=== PATIENT | male | born 1950 | race African-American/Black ===

== ENCOUNTER → 2017-12-19 14:18 | Outpatient (POV) | payer MEDICARE, SELFPAY ==
[2017-12-19 14:36] VITALS: BP 177/86; PULSE 65; RESP 18; O2SAT 98
--- NOTE | 2017-12-19 16:31 | HMH.PMCON ---
Assessment and Plan (1) Postlaminectomy syndrome Current visit: Yes Status: Chronic Category: Medical Code(s): M96.1 - Postlaminectomy syndrome, not elsewhere classified (2) Lumbar radiculopathy Current visit: Yes Status: Chronic Category: Medical Code(s): M54.16 - Radiculopathy, lumbar region - Assessment and plan all Dx Assessment and Plan for all problems:: We will schedule lumbar MRI for the patient. We will also try him on Lyrica 75 mg 1 p.o. twice daily and see if this is helpful for him. If this helps him we can call in the Lyrica prescription. I will follow-up with the patient after his MRI and we will determine our next plan of care. This note was dictated using voice recognition software and may contain errors or omissions HPI - Data of Consult Consult date: 12/19/17 Requesting Physician: Shayla Hdez APRN Primary Care Provider: Henrry Vegas MD Family Provider: Henrry Vegas MD - Consult Narrative Reason for consult: Leg pain, foot pain History of present illness: Mr. Phillips is a 67 year old male who presents today for consultation in regards to his bilateral leg and foot pain. Patient has had back surgery several years ago. Patient states that over the last 6 months he has lost feeling in both legs. Patient states it is worse in his feet. He states that he is numb and tingling at all times. Patient states Tylenol helps a little bit. Patient states movement makes it worse. Patient has tried gabapentin with no relief. Patient is not diabetic. Patient is currently on anticoagulation therapy. Patient does not have any recent MRI imaging. He rates his pain a 9 out of 10 today. CC: Shayla Hdez APRN [facility] History I have reviewed the patient's past medical history: Yes Medical History: Reports:: Hyperlipidemia, Hypertension, Palpitations Denies:: Diabetes Mellitus Type 1, Diabetes Mellitus Type 2 Other Medical History: Reports: Arthritis - *Social History Smoking Status: Never smoker Alcohol Intake: never Occupational Status: other Housing: house Household Members: spouse - Psychiatric History Expresses thoughts of harming self/others: None Suicide Plan Description: No Plan *Family Hx:: Unable to obtain Review of Systems - Review of Systems ROS General: no recent weight change, no fever, no sleep disturbances Respiratory: no cough, no shortness of air, no recurring pulmonary infections Cardiovascular/Peripheral Vascular: No chest pain, No palpitations, no edema, no shortness of breath. Gastrointestinal: no incontinence, normal bowel movements reported Genitourinary: no incontinence Musculoskeletal: Leg pain, bilateral foot pain Psychiatric: normal mood/ affect Neurological: [denies weakness in extremities], [denies balance issues] Meds Allergies Allergy/AdvReac Type Severity Reaction Status Date / Time No Known Drug Allergies Allergy Verified 12/19/17 14:41 Objective Vital signs: Pulse Resp BP Pulse Ox 65 18 177/86 98 12/19/17 14:36 12/19/17 14:36 12/19/17 14:36 12/19/17 14:36 Narrative: Physical Exam General: Alert and oriented x3, no acute distress, pleasant and cooperative, on room air Lungs: Resps E/U, Symmetrical chest expansion, Eyes: PERRL Musculoskeletal: Flexion and extension of lumbar spine somewhat guarded secondary to pain, deep tendon reflexes normal, strength in upper and lower extremities [5/5], [abnormal gait noted] Neurological: speech clear, culture room worker equal, no gross sensory deficits Opioid Risk Tool - Opioid Risk Tool-Male Family hx alcohol abuse: N Family hx illegal drugs: N Family hx rx drug abuse: N Personal hx alcohol abuse: N Personal hx illegal drugs: N Personal hx rx drug abuse: N Age: 45+ Hx of sexual abuse: N Mental health issues-ADD,OCD,Bipolar, etc: N Hx of depression: N Male Risk Score: 0
--- NOTE | 2017-12-19 16:34 | P.CONS_ITS ---
Assessment and Plan (1) Postlaminectomy syndrome Current visit: Yes Status: Chronic Category: Medical Code(s): M96.1 - Postlaminectomy syndrome, not elsewhere classified (2) Lumbar radiculopathy Current visit: Yes Status: Chronic Category: Medical Code(s): M54.16 - Radiculopathy, lumbar region - Assessment and plan all Dx Assessment and Plan for all problems:: We will schedule lumbar MRI for the patient. We will also try him on Lyrica 75 mg 1 p.o. twice daily and see if this is helpful for him. If this helps him we can call in the Lyrica prescription. I will follow-up with the patient after his MRI and we will determine our next plan of care. This note was dictated using voice recognition software and may contain errors or omissions HPI - Data of Consult Consult date: 12/19/17 Requesting Physician: Shayla Hdez APRN Primary Care Provider: Henrry Vegas MD Family Provider: Henrry Vegas MD - Consult Narrative Reason for consult: Leg pain, foot pain History of present illness: Mr. Phillips is a 67 year old male who presents today for consultation in regards to his bilateral leg and foot pain. Patient has had back surgery several years ago. Patient states that over the last 6 months he has lost feeling in both legs. Patient states it is worse in his feet. He states that he is numb and tingling at all times. Patient states Tylenol helps a little bit. Patient states movement makes it worse. Patient has tried gabapentin with no relief. P atsabrina is not diabetic. Patient is currently on anticoagulation therapy. Patient does not have any recent MRI imaging. He rates his pain a 9 out of 10 today. CC: Shayla Hdez APRN [facility] History I have reviewed the patient's past medical history: Yes Medical History: Reports:: Hyperlipidemia, Hypertension, Palpitations Denies:: Diabetes Mellitus Type 1, Diabetes Mellitus Type 2 Other Medical History: Reports: Arthritis - *Social History Smoking Status: Never smoker Alcohol Intake: never Occupational Status: other Housing: house Household Members: spouse - Psychiatric History Expresses thoughts of harming self/others: None Suicide Plan Description: No Plan *Family Hx:: Unable to obtain Review of Systems - Review of Systems ROS General: no recent weight change, no fever, no sleep disturbances Respiratory: no cough, no shortness of air, no recurring pulmonary infections Cardiovascular/Peripheral Vascular: No chest pain, No palpitations, no edema, no shortness of breath. Gastrointestinal: no incontinence, normal bowel movements reported Genitourinary: no incontinence Musculoskeletal: Leg pain, bilateral foot pain Psychiatric: normal mood/ affect Neurological: [denies weakness in extremities], [denies balance issues] Meds Allergies Allergy/AdvReac Type Severity Reaction Status Date / Time No Known Drug Allergies Allergy Verified 12/19/17 14:41 Objective Vital signs: Pulse Resp BP Pulse Ox 65 18 177/86 98 12/19/17 14:36 12/19/17 14:36 12/19/17 14:36 12/19/17 14:36 Narrative: Physical Exam General: Alert and oriented x3, no acute distress, pleasant and cooperative, on room air Lungs: Resps E/U, Symmetrical chest expansion, Eyes: PERRL Musculoskeletal: Flexion and extension of lumbar spine some
== END ==
PROVIDERS: Family Provider Internal Medicine Adolescent Medicine; PCP Internal Medicine Adolescent Medicine; Visit Provider Clinical Nurse Specialist Family Health
DX: M96.1 Postlaminectomy syndrome, not elsewhere classified (principal); M54.16 Radiculopathy, lumbar region
CPT/HCPCS: 99202

== ENCOUNTER → 2017-12-26 12:40 | Outpatient (CLI) | payer MEDICARE, SELFPAY ==
--- NOTE | 2017-12-26 12:44 | MR_ITS ---
MR lumbar spine wo con, MR 3-d myelogram/MRCP HISTORY: Back pain, bilateral leg weakness. 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 3-D MIP and myelographic images are also rendered and reviewed FINDINGS: There is normal alignment. The spinal cord ends at the L2-L3 level. T12-L1: Mild degenerative disc disease with mild facet and ligamentum flavum hypertrophy. L1-L2: Degenerative disc disease with type I endplate changes with bulging disc. There is concentric bulging disc with disc osteophyte complex causing some mild impingement upon the anterior aspect of the cord slightly eccentric toward the right with moderate to severe right foraminal narrowing and moderate left foraminal narrowing. Facet and ligamentum flavum hypertrophy is present at this level as well. These findings are somewhat worse then when compared to the previous study. The type I endplate changes have developed since the previous exam L2-L3: Degenerative disc disease with Concentric bulging disc with facet and ligamentum flavum hypertrophy with moderate to severe right-sided foraminal narrowing and moderate left foraminal narrowing. L3-L4: Degenerative disc disease with concentric bulging disc along with facet and ligamentum flavum hypertrophy with severe bilateral foraminal narrowing along with transverse narrowing of the canal. This is slightly worse than when compared to the previous exam.. 405: Prior posterior fusion with interpedicular screws at L4 and L5 with considerable artifact. Normal alignment. L5-S1: Concentric bulging disc with facet and ligamentum flavum hypertrophy with moderate to severe bilateral foraminal narrowing. This is somewhat worse than when compared to the previous exam. No extruded herniated disc evident. Bilateral renal cysts are noted. IMPRESSION: 1. Abnormal MRI of the lumbar spine with multilevel lumbar spondylosis with degenerative disc disease, bulging disc, and facet ligamentum hypertrophy and endplate osteophytes with lateral recess and foraminal narrowing. Please see above for detailed description at each level 2. Prior fusion at L4-L5 with interpedicular screws in place 3. No extruded herniated disc
== END ==
PROVIDERS: Family Provider Internal Medicine Adolescent Medicine; PCP Internal Medicine Adolescent Medicine; Visit Provider Clinical Nurse Specialist Family Health
DX: M54.5 Low back pain (principal)
CPT/HCPCS: 72148; 76376

== ENCOUNTER → 2018-01-02 15:00 | Outpatient (POV) | payer MEDICARE, SELFPAY ==
[2018-01-02 15:36] VITALS: BP 140/77; PULSE 68; RESP 18; O2SAT 98; BMI 38.9
--- NOTE | 2018-01-02 15:43 | HMH.PAINSOAP ---
[facility] Pain Management SOAP Note Subjective:: She is a pleasant 67-year-old -[place] male who presents today for follow-up after his recent MRI. Patient has quite a lot of degeneration along with disc bulge. Patient has a lot of low back pain and radiation into his bilateral legs. We tried Lyrica however it was not helpful for him. Patient is currently on Eliquis. Patient and I discussed epidural injections. We also briefly discussed neuro stimulation. Patient's tried and failed physical therapy. Patient is trying to stay active at home and continuing a home stretching program. He rates his pain a 6 out of 10 today. ROS General: no recent weight change, no fever, no sleep disturbances Respiratory: no cough, no shortness of air, no recurring pulmonary infections Cardiovascular/Peripheral Vascular: No chest pain, No palpitations, no edema, no shortness of breath. Gastrointestinal: no incontinence, normal bowel movements reported Genitourinary: no incontinence Musculoskeletal: Back pain, leg pain Psychiatric: normal mood/ affect, Neurological: [denies weakness in extremities], [denies balance issues] Objective:: Physical Exam General: Alert and oriented x3, no acute distress, pleasant and cooperative, [on room air] Lungs: Resps E/U, Symmetrical chest expansion, Eyes: PERRL Musculoskeletal: Flexion and extension of lumbar spine somewhat guarded secondary to pain, deep tendon reflexes normal, strength in upper and lower extremities [5/5], [abnormal gait noted] Neurological: speech clear, gauge maker apprentice equal, no gross sensory deficits Assessment:: Degenerative disc disease of lumbar spine with lumbar radiculopathy, postlaminectomy syndrome Plan:: We will schedule an L4-L5 lumbar epidural steroid injection for the patient. We will find out if he can come off of his Eliquis. I will follow-up with the patient after his injection. This note was dictated using voice recognition software and may contain errors or omissions
--- NOTE | 2018-01-02 15:46 | P.CONS_ITS ---
[facility] Pain Management SOAP Note Subjective:: She is a pleasant 67-year-old -[place] male who presents today for follow-up after his recent MRI. Patient has quite a lot of degeneration along with disc bulge. Patient has a lot of low back pain and radiation into his bilateral legs. We tried Lyrica however it was not helpful for him. Patient is currently on Eliquis. Patient and I discussed epidural injections. We also briefly discussed neuro stimulation. Patient's tried and failed physical therapy. Patient is trying to stay active at home and continuing a home stretching program. He rates his pain a 6 out of 10 today. ROS General: no recent weight change, no fever, no sleep disturbances Respiratory: no cough, no shortness of air, no recurring pulmonary infections Cardiovascular/Peripheral Vascular: No chest pain, No palpitations, no edema, no shortness of breath. Gastrointestinal: no incontinence, normal bowel movements reported Genitourinary: no incontinence Musculoskeletal: Back pain, leg pain Psychiatric: normal mood/ affect, Neurological: [denies weakness in extremities], [denies balance issues] Objective:: Physical Exam General: Alert and oriented x3, no acute distress, pleasant and cooperative, [on room air] Lungs: Resps E/U, Symmetrical chest expansion, Eyes: PERRL Musculoskeletal: Flexion and extension of lumbar spine somewhat guarded secondary to pain, deep tendon reflexes normal, strength in upper and lower extremities [5/5], [abnormal gait noted] Neurological: speech clear, tab builder equal, no gross sensory deficits Assessment:: Degenerative disc disease of lumbar spine with lumbar radiculopathy, postlaminectomy syndrome Plan:: We will schedule an L4-L5 lumbar epidural steroid injection for the patient. We will find out if he can come off of his Eliquis. I will follow-up with the patient after his injection. This note was dictated using voice recognition software and may contain errors or omissions
== END ==
PROVIDERS: Family Provider Internal Medicine Adolescent Medicine; PCP Internal Medicine Adolescent Medicine; Visit Provider Clinical Nurse Specialist Family Health
DX: M51.16 Intervertebral disc disorders with radiculopathy, lumbar region (principal); M96.1 Postlaminectomy syndrome, not elsewhere classified
CPT/HCPCS: 99213

== ENCOUNTER → 2018-02-06 12:53 | Outpatient (POV) | payer MEDICARE, SELFPAY ==
[2018-02-06 13:06] VITALS: BP 144/66; PULSE 55; RESP 18; O2SAT 98; BMI 38.0
--- NOTE | 2018-02-06 13:27 | HMH.PAINSOAP ---
[facility] Pain Management SOAP Note Subjective:: Patient is a pleasant 68-year-old -[place] male who presents today for follow-up. Patient is continuing to have quite a lot of leg pain and radiation into his bilateral legs. Patient is tried Lyrica however it was not helpful. 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 His pain today a 6 out of 10. Patient states that it is constant. Patient is continuing his home stretching program. Patient is tried and failed anti-inflammatory therapy for several weeks. ROS General: no recent weight change, no fever, no sleep disturbances Respiratory: no cough, no shortness of air, no recurring pulmonary infections Cardiovascular/Peripheral Vascular: No chest pain, No palpitations, no edema, no shortness of breath. Gastrointestinal: no incontinence, normal bowel movements reported Genitourinary: no incontinence Musculoskeletal: Back pain, leg pain Psychiatric: normal mood/ affect Neurological: [denies weakness in extremities], [denies balance issues] Objective:: Physical Exam General: Alert and oriented x3, no acute distress, pleasant and cooperative, [on room air] Lungs: Resps E/U, Symmetrical chest expansion, Eyes: PERRL Musculoskeletal: Flexion and extension of lumbar spine somewhat guarded secondary to pain, deep tendon reflexes normal, strength in upper and lower extremities [5/5], antalgic gait noted, positive straight leg raise test bilaterally at 30 degrees Neurological: speech clear, archeologist classical equal, no gross sensory deficits Assessment:: Degenerative disc disease lumbar spine with lumbar radiculopathy, postlaminectomy syndrome Plan:: We will schedule an L4-L5 lumbar epidural steroid injection for the patient. I will follow-up with the patient after his injection. This note was dictated using voice recognition software and may contain errors or omissions
--- NOTE | 2018-02-06 13:30 | P.CONS_ITS ---
[facility] Pain Management SOAP Note Subjective:: Patient is a pleasant 68-year-old -[place] male who presents today for follow-up. Patient is continuing to have quite a lot of leg pain and radiation into his bilateral legs. Patient is tried Lyrica however it was not helpful. 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 His pain today a 6 out of 10. Patient states that it is constant. Patient is continuing his home stretching program. Patient is tried and failed anti- inflammatory therapy for several weeks. ROS General: no recent weight change, no fever, no sleep disturbances Respiratory: no cough, no shortness of air, no recurring pulmonary infections Cardiovascular/Peripheral Vascular: No chest pain, No palpitations, no edema, no shortness of breath. Gastrointestinal: no incontinence, normal bowel movements reported Genitourinary: no incontinence Musculoskeletal: Back pain, leg pain Psychiatric: normal mood/ affect Neurological: [denies weakness in extremities], [denies balance issues] Objective:: Physical Exam General: Alert and oriented x3, no acute distress, pleasant and cooperative, [on room air] Lungs: Resps E/U, Symmetrical chest expansion, Eyes: PERRL Musculoskeletal: Flexion and extension of lumbar spine somewhat guarded secondary to pain, deep tendon reflexes normal, strength in upper and lower extremities [5/5], antalgic gait noted, positive straight leg raise test bilaterally at 30 degrees Neurological: speech clear, cager operator equal, no gross sensory deficits Assessment:: Degenerative disc disease lumbar spine with lumbar radiculopathy, postlaminectomy syndrome Plan:: We will schedule an L4-L5 lumbar epidural steroid injection for the patient. I will follow-up with the patient after his injection. This note was dictated using voice recognition software and may contain errors or omissions
== END ==
PROVIDERS: PCP Internal Medicine Adolescent Medicine; Visit Provider Clinical Nurse Specialist Family Health
DX: M51.16 Intervertebral disc disorders with radiculopathy, lumbar region (principal); M96.1 Postlaminectomy syndrome, not elsewhere classified
CPT/HCPCS: 99213

== ENCOUNTER → 2018-05-16 09:29 | Outpatient (POV) | payer MEDICARE, SELFPAY | PROVIDERS: Visit Provider Otolaryngology | DX: Z00.00 Encounter for general adult medical examination without abnormal findings (principal) ==

== ENCOUNTER → 2018-08-11 07:45 | Outpatient (CLI) | payer MEDICARE, SELFPAY ==
--- NOTE | 2018-08-11 07:48 | MR_ITS ---
MR head/brain wo con HISTORY: Bilateral feet numbness, intermittent blurred vision ITS.REASON: IDIOPATHIC PERIPHERAL NEUROPATHY ORDERING PHYSICIAN: Henrry Vegas MD PATIENT AGE: 68 years Comparison: None TECHNIQUE: Standard multiplanar multiecho sequences are performed without contrast. FINDINGS: No midline shift, mass effect, intracranial hemorrhage, or hydrocephalus. No evidence of acute infarction. There is generalized atrophy with moderate periventricular and subcortical T2 white matter hyperintensity consistent with ischemic gliotic change from microvascular disease. There is mild ventriculomegaly likely related to underlying volume loss. The cerebellopontine angles, cerebellum, brainstem are unremarkable. There is diffuse increase in T2 signal with loss of flow void artifact within the right vertebral artery. This does raise the suspicion of vertebral occlusion on the right. This could be flow related as well. CT angiogram may be of further value. There is no evidence of acute infarction. Flow void artifact is present in the left vertebral artery and basilar artery as i. The pituitary, optic chiasm, corpus callosum, and craniocervical junction have an unremarkable appearance. No sinus air-fluid level or mastoid effusion. IMPRESSION: 1. Atrophy with diffuse periventricular ischemic gliotic change 2. Possible thrombosis of the right vertebral artery. CT angiogram may further evaluate.. This could also be related to slow flow. 3. No acute infarction apparent
== END ==
PROVIDERS: PCP Internal Medicine Adolescent Medicine; Visit Provider Internal Medicine Adolescent Medicine
DX: R32 Unspecified urinary incontinence (principal); G60.9 Hereditary and idiopathic neuropathy, unspecified
CPT/HCPCS: 70551

== ENCOUNTER 2019-06-12 15:55 | Observation (INO) ==
--- NOTE | 2019-06-12 16:31 | Emergency Department Note ---
ED Disposition Clinical Impression: Weakness, Renal mass Disposition: Admitted as Observation Condition on Discharge: Fair Referrals: Henrry Vegas MD [Primary Care Provider] - - Critical Care Critical Care Time: No Attestation: On , the high probability of a clinically significant, sudden or life t hreatening deterioration of the following system(s) required my full and direct attention, intervention and personal management. The time I documented below is in addition to time spent performing reported procedures but includes the following listed in this critical care notation. Medical Decision Making - Carlos Inquiry Pt receiving controlled substance: No Vital Signs: 06/12/19 15:56 Temperature 100.5 F H Temperature Source Oral Pulse Rate [Left Radial] 76 Respiratory Rate 20 Blood Pressure [Left Arm] 150/114 H Blood Pressure Mean [Left Arm] 126 Blood Pressure Source [Left Arm] Automatic Cuff Blood Pressure Position [Left Arm] Sitting 02 Sat by Pulse Oximetry 96 Oxygen Delivery Method Room Air - Lab Data Lab Results 06/12/19 14:15: Urine Color Yellow, Urine Appearance Clear, Urine pH 5.0, Ur Specific [place] 1.015, Urine Protein Negative, Urine Glucose (UA) Negative, Urine Ketones Negative, Urine Blood Negative, Urine Nitrate Negative, Urine Bilirubin Negative, Urine Urobilinogen 0.2, Ur Leukocyte Esterase Negative, Urine RBC None, Urine WBC None, Ur Squamous Epith Cells Occasional, Urine Bacteria None 06/12/19 16:30: WBC 14.3 H, RBC 4.24 L, Hgb 13.3 L, Hct 40.5 L, MCV 95.3 H, MCH 31.3 H, MCHC 32.8, RDW 15.8, Plt Count 200, MPV 9.2, Neut % (Auto) 91.7 H, Lymph % (Auto) 4.0 L, [place] % (Auto) 3.1, Eos % (Auto) 1.2, Baso % (Auto) 0.1, Neut # (Auto) 13.1 H, Lymph # (Auto) 0.6 L, [place] # (Auto) 0.4, Eos # (Auto) 0.2, Baso # (Auto) 0.0, Total Counted 100, Neutrophils % (Manual) 91 H, Lymphocytes % (Manual) 5 L, Monocytes % (Manual) 4, Platelet Estimate Normal, RBC Morphology Normal 06/12/19 16:30: Sodium 138, Potassium 4.9, Chloride 102, Carbon Dioxide 25, Anion Gap 15.9 H, BUN 47 H, Creatinine 1.90 H, Estimated Creat Clear 62, Estimated GFR 35 L, Est GFR ( Amer) 43 L, Glucose 121 H, Calcium 10.5 H, Total Bilirubin 0.5, AST 29, ALT 19, Alkaline Phosphatase 88, Total Protein 7.9, Albumin 4.3, Globulin 3.6 H, Albumin/Globulin Ratio 1.2 06/12/19 17:05: Lactate 1.4 06/12/19 17:05: Influenza Type A Ag Negative, Influenza Type B Ag Negative Result diagrams: 06/12/19 16:30 06/12/19 16:30 Orders (Tests/Meds): ED MEDICATIONS Discontinued Medications Generic Name Dose Route Start Last Admin Trade Name Freq PRN Reason Stop Dose Admin Acetaminophen 1,000 mg 06/12/19 16:36 06/12/19 16:57 Tylenol 500mg Tablet PO 06/12/19 16:37 1,000 mg ONCE ONE Administration Sodium Chloride 1,000 mls @ 999 mls/hr 06/12/19 16:36 06/12/19 16:57 Sod Chlor 0.9% 1000ml Bag IV 06/12/19 17:36 999 mls/hr .Q1H1M ONE Administration Ibuprofen 600 mg 06/12/19 16:36 06/12/19 16:57 Motrin 600mg Tablet PO 06/12/19 16:37 600 mg ONCE ONE Administration Ondansetron HCl 4 mg 06/12/19 16:36 06/12/19 16:57 Zofran 4mg/2ml Vial IV 06/12/19 16:37 4 mg ONCE ONE Administration ORDERS Category Date Time Status CT abdomen pelvis wo con Stat Cat Scan 06/12/19 16:43 Taken Blood Culture Stat Micro 06/12/19 17:05 Received - Radiology Data #1 Image(s): Chest Image Reviewed: Yes I reviewed the patient's radiology image Atelectasis right base. No infiltrate seen. - Physician Consults Physician Consulted: Dr. Vegas Time: 20:10 Reason -: Admission Comment/Response: Agrees to admit the patient to the hospital. We discussed the patient's clinical information, including history, exam, laboratory and radiology results and ED course. Per hospital procedure, I will write temporary bridge inpatient orders on the patient. Specific orders requested by the admitting physician: Admit observation, IV fluids low rate General Adult HPI - General Stated complaint: Vomiting,hands shaking Time Seen by Provider: 06/12/19 16:31 - History of Present Illness HPI narrative: Has not felt well since getting up this morning. He is weak, cannot walk. Shaking hands, vomiting. Abdomen is sore. No diarrhea. He states that he has prostate problems and has increased urinary frequency today. He has some rhinorrhea. Denies cough or sore throat. Has chronic back pain and body aches, unchanged. No headache. Takes Tylenol daily, last dose 7 AM. - Related Data Home Medications Medication Instructions Recorded Confirmed Furosemide [Furosemide 40MG tAB] 40 mg PO BID 12/20/17 06/12/19 Gabapentin [Gabapentin 100mg Cap] 300 mg PO TID 12/20/17 06/12/19 Hydralazine HCl [Hydralazine HCl 25 mg PO TID 12/20/17 06/12/19 25mg Tablet] Potassium Chloride [Pot Chlor 10 10 meq PO BID 12/20/17 06/12/19 mEq Tab] bisoproloL fumarate [Bisoprolol 10 mg PO DAILY 12/20/17 06/12/19 10mg Tablet] dilTIAZem HCl [Diltiazem 360mg 360 mg PO DAILY 12/20/17 06/12/19 24Hr ER Cap] lisinopriL [Lisinopril 40mg Tablet] 40 mg PO BID 12/20/17 06/12/19 Apixaban [Eliquis] 5 mg PO DAILY 02/17/18 06/12/19 Albuterol Sulfate [Albuterol HFA 1 - 2 puffs IH Q4-6H PRN 04/21/18 06/12/19 Inhaler] Budesonide/Formoterol Fumarate 10.2 gm IH BID 04/21/18 06/12/19 [Symbicort 160-4.5 Mcg Inhaler] Allergies Allergy/AdvReac Type Severity Reaction Status Date / Time No Known Drug Allergies Allergy Verified 12/19/17 14:41 [facility] History - Hepatitis A Screen Attestation statement:: This patient has been screened for Hepatitis A risk factors. I have reviewed the patient's past medical history: Yes Medical History: Reports:: Hyperlipidemia, Hypertension, Palpitations Denies:: Cancer, Diabetes Mellitus Type 1, Diabetes Mellitus Type 2, Internal Pacemaker, MRSA, Seizures Other Medical History: Reports: Arthritis Other Surgeries: No: Pacemaker Amputation: No - Social History Smoking Status: Never smoker Alcohol Intake: never Occupational Status: other Housing: house Household Members: spouse Family Hx:: Unable to obtain ROS Obtained: Yes All systems reviewed & no additional complaints - Constitutional Constitutional: Reports body ache (Chronic), Reports fatigue, Reports fever(s), Reports weakness - ENT Ears, Nose, Mouth, and Throat: Reports nasal discharge, Denies sore throat - Cardiovascular Cardiovascular: Denies chest pain - Respiratory Respiratory: No cough, No dyspnea - Gastrointestinal Gastrointestingal: Reports: abdominal pain, nausea, vomiting. Denies: diarrhea - Genitourinary Male Genitourinary: Reports urinary frequency - Musculoskeletal Musculoskeletal: Reports back pain (Chronic) Physical Exam - General General appearance: alert, in no apparent distress - Head Head exam: atraumatic, normocephalic - Eye Eye exam: Present: normal appearance, EOMI - ENT ENT exam: Present: mucous membranes moist - Neck Neck exam: Present: normal inspection, trachea midline - Chest Chest inspection: Present: normal inspection, symmetric chest wall rise - Respiratory Respiratory exam: Present: normal lung sounds bilaterally. Absent: respiratory distress - Cardiovascular Cardiovascular exam: Present: regular rate, normal rhythm, normal heart sounds - Abdominal Exam Abdominal exam: Present: soft, tenderness. Absent: distention Abdominal tenderness: Present: diffuse, moderate - Extremities Exam Extremities exam: Present: normal inspection - Neurological Exam Neurological exam: Present: alert, oriented X3 - Psychiatric Psychiatric exam: Present: normal affect - Skin Skin exam: Present: warm, dry. Absent: rash
[2019-06-12 16:41] LABS: Microscopic, Urine URINE MICROSCOPIC (MICROSCOPIC)
[2019-06-12 16:44] LABS: Basophils % 0.1 % (0.1-2.0); Eosinophils # 0.2 K/mm3 (0.0-0.4); Eosinophils % 1.2 % (0.1-12.0); Hematocrit 40.5 % (42.0-52.0); Hemoglobin 13.3 g/dL (14.1-18.0); Lymphocytes # 0.6 K/mm3 (0.7-4.5); Mean Corpuscular HGB Conc 32.8 g/dL (31.8-35.4); Mean Corpuscular Volume 95.3 fl (80-94); Mean Platelet Volume 9.2 fl (7.4-10.4); Monocytes # 0.4 K/mm3 (0.1-1.0); Monocytes % 3.1 % (1.7-9.3); Neutrophils # 13.1 K/mm3 (1.8-7.8); Neutrophils % 91.7 % (37.0-80.0); Platelet Count 200 K/mm3 (142-424); Red Blood Count 4.24 M/mm3 (4.60-6.20); Red Cell Distribution Width 15.8 % (11.5-17.5); White Blood Count 14.3 K/mm3 (4.8-10.8)
[2019-06-12 17:02] LABS: Lymphocytes % 5 % (10-50); Monocytes % 4 % (2-9); Neutrophils % 91 % (42-76); Total Cells Counted 100
[2019-06-12 17:03] LABS: RBC Morphology Normal
[2019-06-12 17:08] LABS: Appearance,Urine CLEAR (Clear); Bilirubin,Urine Negative (Negative); Blood, Urine Negative (Negative); Color,Urine YELLOW (Yellow); Glucose,Urine (UA) Negative (Negative); Ketones,Urine Negative (Negative); Leukocyte Esterase,Urine Negative (Negative); Protein,Urine Negative (Negative); Specific Gravity, Urine 1.015 (1.005-1.030); Urobilinogen,Urine 0.2 EU/dl (0.2)
[2019-06-12 17:21] LABS: Squamous Epithelial Cell,Urine Occasional #/hpf (0-5)
[2019-06-12 17:49] LABS: Albumin Level 4.3 g/dl (3.5-5.0); Albumin/Globulin Ratio 1.2 (1.1-1.8); Anion Gap 15.9 mEq/L (5-15); Bilirubin,Total 0.5 mg/dl (0.2-1.3); Calcium 10.5 mg/dl (8.4-10.2); Globulin 3.6 g/dL (1.3-3.2); Total Protein,Serum 7.9 g/dl (6.3-8.2)
[2019-06-12 21:52] LABS: Coronavirus 229E Not Detected (NotDetected); Coronavirus NL63 Not Detected (NotDetected); Coronavirus OC43 Not Detected (NotDetected); Coronovirus HKU1,PCR Not Detected (NotDetected)
--- NOTE | 2019-06-13 07:30 | Pharmacy Consult Notes ---
[facility] Pharmacy VTE Monitoring - Patient Demographics Admission date: 06/12/19 Report Date: 06/13/19 Time: 07:30 Allergies/Adverse Reactions: Patient Allergies No Known Drug Allergies Allergy (Verified 12/19/17 14:41) Height: 1.83 m Weight: 124.7 kg Patient Problems: Current Active Problems Weakness (Acute) Renal mass (Acute) - VTE Risk Labs: VTE Related Lab Results Hgb 13.3 g/dL (14.1-18.0) L 06/12/19 16:30 Hct 40.5 % (42.0-52.0) L 06/12/19 16:30 Plt Count 200 K/mm3 (142-424) 06/12/19 16:30 BUN 47 mg/dl (9-20) H 06/12/19 16:30 Creatinine 1.90 mg/dl (0.66-1.25) H 06/12/19 16:30 Estimated Creat Clear 62 mL/min (50-200) 06/12/19 16:30 VTE Score: 4 VTE Risk Level: Low Risk - Prophylaxis VTE Prophylaxis Ordered?: Yes Types of VTE Prophylaxis: TEDS Knee High Location of Applied Device: Bilateral Lower Extremeties Pharmacologic Type: Other (ELIQUIS)
[2019-06-13 08:03] LABS: Anion Gap 14.6 mEq/L (5-15); Basophils % 0.1 % (0.1-2.0); Eosinophils % 0.4 % (0.1-12.0); Hematocrit 40.9 % (42.0-52.0); Hemoglobin 12.9 g/dL (14.1-18.0); Lymphocytes # 1.1 K/mm3 (0.7-4.5); Lymphocytes % 11.7 % (10-50); Mean Corpuscular HGB Conc 31.4 g/dL (31.8-35.4); Mean Corpuscular Volume 99.8 fl (80-94); Mean Platelet Volume 9.1 fl (7.4-10.4); Monocytes # 0.4 K/mm3 (0.1-1.0); Monocytes % 4.4 % (1.7-9.3); Neutrophils # 7.7 K/mm3 (1.8-7.8); Neutrophils % 83.4 % (37.0-80.0); Platelet Count 170 K/mm3 (142-424); Red Cell Distribution Width 15.7 % (11.5-17.5); White Blood Count 9.3 K/mm3 (4.8-10.8)
--- NOTE | 2019-06-13 09:14 | H&P/Discharge Summary ---
General - General Admission date:: 06/12/19 Discharge date: 06/13/19 *Admission Date: 06/12/19 *Chief complaint: Abdominal pain/nausea *History of present illness: 69-year-old black male with multiple medical problems who presented to the emergency department with weakness, low-grade fever, chills and some nausea. Did not describe vomiting. Work-up in the ER revealed mild leukocytosis, negative chest x-ray, negative influenza titers, and slightly worsened creatinine consistent with mild prerenal azotemia superimposed on chronic kidney disease. He also was found on abdominal CT scanning to have an inferior pole left kidney mass of approximately 6 cm worrisome for primary renal cell carcinoma. Otherwise CT of abdomen and pelvis was unremarkable with the exception of a right kidney cyst. The patient was admitted for IV fluids and Further evaluation. [facility] History I have reviewed the patient's past medical history: Yes Medical History: Reports:: Hyperlipidemia, Hypertension, Palpitations Denies:: Cancer, Diabetes Mellitus Type 1, Diabetes Mellitus Type 2, Internal Pacemaker, MRSA, Seizures *Have you ever received a pneumonia vaccine?: No *Have you received a flu vaccine this season?: No Other Medical History: Reports: Arthritis Other Surgeries: Yes: No Previous Surgery. No: Pacemaker Amputation: No Fractures: No - *Social History Smoking Status: Former smoker Tobacco Type: cigarettes # Packs/Day (cigarettes): 1 #Yrs smoked (if former smoker): 39 Alcohol Intake: former *Occupational Status:: retired Housing: house Household Members: spouse *Travel in the last 8 weeks: None Family Hx:: Cancer, Stroke Review of Systems - Review of Systems Review of systems:: pertinent systems reviewed and negative unless documented below Please see HPI. Patient positive for mild nausea, no vomiting, no diarrhea. Negative for respiratory symptoms. Skin rash. Negative for chest pain. Negative for neurologic issues except for mild weakness - *Neurologic Reports weakness Exam Vital signs and Labs for Last 24 Hours: Temp Pulse Resp BP Pulse Ox 98.6 F 75 18 120/65 95 06/13/19 08:00 06/13/19 08:00 06/13/19 08:00 06/13/19 08:00 06/13/19 08:00 Laboratory Results - last 24 hr 06/12/19 14:15: Urine Color Yellow, Urine Appearance Clear, Urine pH 5.0, Ur Specific [place] 1.015, Urine Protein Negative, Urine Glucose (UA) Negative, Urine Ketones Negative, Urine Blood Negative, Urine Nitrate Negative, Urine Bilirubin Negative, Urine Urobilinogen 0.2, Ur Leukocyte Esterase Negative, Urine RBC None, Urine WBC None, Ur Squamous Epith Cells Occasional, Urine Bacteria None 06/12/19 16:30: WBC 14.3 H, RBC 4.24 L, Hgb 13.3 L, Hct 40.5 L, MCV 95.3 H, MCH 31.3 H, MCHC 32.8, RDW 15.8, Plt Count 200, MPV 9.2, Neut % (Auto) 91.7 H, Lymph % (Auto) 4.0 L, [place] % (Auto) 3.1, Eos % (Auto) 1.2, Baso % (Auto) 0.1, Neut # (Auto) 13.1 H, Lymph # (Auto) 0.6 L, [place] # (Auto) 0.4, Eos # (Auto) 0.2, Baso # (Auto) 0.0, Total Counted 100, Neutrophils % (Manual) 91 H, Lymphocytes % (Manual) 5 L, Monocytes % (Manual) 4, Platelet Estimate Normal, RBC Morphology Normal 06/12/19 16:30: Sodium 138, Potassium 4.9, Chloride 102, Carbon Dioxide 25, Anion Gap 15.9 H, BUN 47 H, Creatinine 1.90 H, Estimated Creat Clear 62, Estimated GFR 35 L, Est GFR ( Amer) 43 L, Glucose 121 H, Calcium 10.5 H, Total Bilirubin 0.5, AST 29, ALT 19, Alkaline Phosphatase 88, Total Protein 7.9, Albumin 4.3, Globulin 3.6 H, Albumin/Globulin Ratio 1.2 06/12/19 17:05: Lactate 1.4 06/12/19 17:05: Influenza Type A Ag Negative, Influenza Type B Ag Negative 06/12/19 21:47: Chlamy pneumoniae PCR Not detected, Adenovirus (PCR) Not detected, B. pertussis DNA (PCR) Not detected, Coronavirus OC43 (PCR) Not detected, Coronavirus HKU1 (PCR) Not detected, Coronavirus 229E (PCR) Not detected, Coronavirus NL63 (PCR) Not detected, Human Metapneumovir PCR Not detected, Influenza A (H1) PCR Not detected, Influ A (H1N1/09) PCR Not detected, Influenza A (H3) PCR Not detected, Influenza Type A (PCR) Not detected, Influenza Type B (PCR) Not detected, M. pneumoniae (PCR) Not detected, Parainfluenza 1 (PCR) Not detected, Parainfluenza 2 (PCR) Not detected, Parainfluenza 3 (PCR) Not detected, Parainfluenza 4 (PCR) Not detected, RSV (PCR) Not detected, Entero/Rhino (PCR) Not detected 06/13/19 07:40: WBC 9.3 D, RBC 4.10 L, Hgb 12.9 L, Hct 40.9 L, MCV 99.8 H, MCH 31.4 H, MCHC 31.4 L, RDW 15.7, Plt Count 170, MPV 9.1, Neut % (Auto) 83.4 H, Lymph % (Auto) 11.7, [place] % (Auto) 4.4, Eos % (Auto) 0.4, Baso % (Auto) 0.1, Neut # (Auto) 7.7, Lymph # (Auto) 1.1, [place] # (Auto) 0.4, Eos # (Auto) 0.0, Baso # (Auto) 0.0 06/13/19 07:40: Sodium 139, Potassium 4.6, Chloride 103, Carbon Dioxide 26, Anion Gap 14.6, BUN 42 H, Creatinine 1.60 H, Estimated Creat Clear 76, Estimated GFR 43 L, Est GFR ( Amer) 52 L D, Glucose 148 H D, Calcium 10.0 I & O for Last 24 hours: Intake & Output 06/10/19 06/11/19 06/12/19 06/13/19 11:59 11:59 11:59 11:59 Intake Total 696 / 696 Output Total 300 / 300 Balance 396 / 396 Weight 274 lb 14.663 oz Narrative: Patient is alert, up in the chair this morning after 1 night of IV fluids. Feels much better. Oropharynx clear. No JVD. Lungs clear. Heart rate regular with occasional ectopic beats. Abdomen soft and benign, no masses. No CVA tenderness. Edema is noted, shiny skin changes consistent with brawniness from prior edema that is better than baseline, diminished pulses secondary to his chronic venous skin changes. No evidence of perfusion deficits however. Neurologic exam notable for his lower extremity weakness as previously noted but no focal deficits. Hospital Course Hospital Course: Patient was admitted. Creatinine improved this morning after very cautious IV fluid administration White count normalized. PCR for viral pathogens including influenza virus was negative. This morning patient is eating well and feels much better. Patient will be discharged home, he will hold his diuretics this morning and resume them tomorrow. I will see him in my office next Tuesday in [place]. We will make arrangements for urologic consultation for his renal mass at the [facility] -patient has significant comorbidities if any surgical resection would be planned and his cardiology group is located at the [facility]. Results Labs on day of discharge: Labs from last 24 hours 06/13/19 06/13/19 06/12/19 07:40 07:40 21:47 WBC 9.3 D RBC 4.10 L Hgb 12.9 L Hct 40.9 L MCV 99.8 H MCH 31.4 H MCHC 31.4 L RDW 15.7 Plt Count 170 MPV 9.1 Neut % (Auto) 83.4 H Lymph % (Auto) 11.7 [place] % (Auto) 4.4 Eos % (Auto) 0.4 Baso % (Auto) 0.1 Neut # (Auto) 7.7 Lymph # (Auto) 1.1 [place] # (Auto) 0.4 Eos # (Auto) 0.0 Baso # (Auto) 0.0 Total Counted Neutrophils % (Manual) Lymphocytes % (Manual) Monocytes % (Manual) Platelet Estimate RBC Morphology Sodium 139 Potassium 4.6 Chloride 103 Carbon Dioxide 26 Anion Gap 14.6 BUN 42 H Creatinine 1.60 H Estimated Creat Clear 76 Estimated GFR 43 L Est GFR ( Amer) 52 L D Glucose 148 H D Lactate Calcium 10.0 Total Bilirubin AST ALT Alkaline Phosphatase Total Protein Albumin Globulin Albumin/Globulin Ratio Urine Color Urine Appearance Urine pH Ur Specific [place] Urine Protein Urine Glucose (UA) Urine Ketones Urine Blood Urine Nitrate Urine Bilirubin Urine Urobilinogen Ur Leukocyte Esterase Urine RBC Urine WBC Ur Squamous Epith Cells Urine Bacteria Chlamy pneumoniae PCR Not detected Adenovirus (PCR) Not detected B. pertussis DNA (PCR) Not detected Coronavirus OC43 (PCR) Not detected Coronavirus HKU1 (PCR) Not detected Coronavirus 229E (PCR) Not detected Coronavirus NL63 (PCR) Not detected Human Metapneumovir PCR Not detected Influenza A (H1) PCR Not detected Influ A (H1N1) PCR Not detected Influenza A (H3) PCR Not detected Influenza Type A Ag Influenza Type A (PCR) Not detected Influenza Type B Ag Influenza Type B (PCR) Not detected M. pneumoniae (PCR) Not detected Parainfluenza 1 (PCR) Not detected Parainfluenza 2 (PCR) Not detected Parainfluenza 3 (PCR) Not detected Parainfluenza 4 (PCR) Not detected RSV (PCR) Not detected Entero/Rhino (PCR) Not detected 06/12/19 06/12/19 06/12/19 17:05 17:05 16:30 WBC RBC Hgb Hct MCV MCH MCHC RDW Plt Count MPV Neut % (Auto) Lymph % (Auto) [place] % (Auto) Eos % (Auto) Baso % (Auto) Neut # (Auto) Lymph # (Auto) [place] # (Auto) Eos # (Auto) Baso # (Auto) Total Counted Neutrophils % (Manual) Lymphocytes % (Manual) Monocytes % (Manual) Platelet Estimate RBC Morphology Sodium 138 Potassium 4.9 Chloride 102 Carbon Dioxide 25 Anion Gap 15.9 H BUN 47 H Creatinine 1.90 H Estimated Creat Clear 62 Estimated GFR 35 L Est GFR ( Amer) 43 L Glucose 121 H Lactate 1.4 Calcium 10.5 H Total Bilirubin 0.5 AST 29 ALT 19 Alkaline Phosphatase 88 Total Protein 7.9 Albumin 4.3 Globulin 3.6 H Albumin/Globulin Ratio 1.2 Urine Color Urine Appearance Urine pH Ur Specific [place] Urine Protein Urine Glucose (UA) Urine Ketones Urine Blood Urine Nitrate Urine Bilirubin Urine Urobilinogen Ur Leukocyte Esterase Urine RBC Urine WBC Ur Squamous Epith Cells Urine Bacteria Chlamy pneumoniae PCR Adenovirus (PCR) B. pertussis DNA (PCR) Coronavirus OC43 (PCR) Coronavirus HKU1 (PCR) Coronavirus 229E (PCR) Coronavirus NL63 (PCR) Human Metapneumovir PCR Influenza A (H1) PCR Influ A (H1N1/) PCR Influenza A (H3) PCR Influenza Type A Ag Negative Influenza Type A (PCR) Influenza Type B Ag Negative Influenza Type B (PCR) M. pneumoniae (PCR) Parainfluenza 1 (PCR) Parainfluenza 2 (PCR) Parainfluenza 3 (PCR) Parainfluenza 4 (PCR) RSV (PCR) Entero/Rhino (PCR) 06/12/19 06/12/19 16:30 14:15 WBC 14.3 H RBC 4.24 L Hgb 13.3 L Hct 40.5 L MCV 95.3 H MCH 31.3 H MCHC 32.8 RDW 15.8 Plt Count 200 MPV 9.2 Neut % (Auto) 91.7 H Lymph % (Auto) 4.0 L [place] % (Auto) 3.1 Eos % (Auto) 1.2 Baso % (Auto) 0.1 Neut # (Auto) 13.1 H Lymph # (Auto) 0.6 L [place] # (Auto) 0.4 Eos # (Auto) 0.2 Baso # (Auto) 0.0 Total Counted 100 Neutrophils % (Manual) 91 H Lymphocytes % (Manual) 5 L Monocytes % (Manual) 4 Platelet Estimate Normal RBC Morphology Normal Sodium Potassium Chloride Carbon Dioxide Anion Gap BUN Creatinine Estimated Creat Clear Estimated GFR Est GFR ( Amer) Glucose Lactate Calcium Total Bilirubin AST ALT Alkaline Phosphatase Total Protein Albumin Globulin Albumin/Globulin Ratio Urine Color Yellow Urine Appearance Clear Urine pH 5.0 Ur Specific [place] 1.015 Urine Protein Negative Urine Glucose (UA) Negative Urine Ketones Negative Urine Blood Negative Urine Nitrate Negative Urine Bilirubin Negative Urine Urobilinogen 0.2 Ur Leukocyte Esterase Negative Urine RBC None Urine WBC None Ur Squamous Epith Cells Occasional Urine Bacteria None Chlamy pneumoniae PCR Adenovirus (PCR) B. pertussis DNA (PCR) Coronavirus OC43 (PCR) Coronavirus HKU1 (PCR) Coronavirus 229E (PCR) Coronavirus NL63 (PCR) Human Metapneumovir PCR Influenza A (H1) PCR Influ A (H1N1/09) PCR Influenza A (H3) PCR Influenza Type A Ag Influenza Type A (PCR) Influenza Type B Ag Influenza Type B (PCR) M. pneumoniae (PCR) Parainfluenza 1 (PCR) Parainfluenza 2 (PCR) Parainfluenza 3 (PCR) Parainfluenza 4 (PCR) RSV (PCR) Entero/Rhino (PCR) DS: Diagnosis - Discharge Diagnosis (1) Renal mass Status: Acute (2) Weakness Status: Resolved Discharge Plan - Patient Discharge Instructions ACTIVITY: Continue current activity DIET: continue same diet Patient Instructions: DI for Muscle Weakness - Follow up Plan Follow up with: Henrry Vegas MD [Primary Care Provider] - 06/19/19 Disposition: Home, Self-Detention Medications: Home Medications Medication Instructions Recorded Confirmed Type Furosemide [Furosemide 40MG tAB] 40 mg PO BID 12/20/17 06/12/19 History Gabapentin [Gabapentin 100mg Cap] 300 mg PO TID 12/20/17 06/12/19 History Hydralazine HCl [Hydralazine HCl 25 mg PO TID 12/20/17 06/12/19 History 25mg Tablet] Potassium Chloride [Pot Chlor 10 10 meq PO BID 12/20/17 06/12/19 History mEq Tab] bisoproloL fumarate [Bisoprolol 10 mg PO DAILY 12/20/17 06/12/19 History 10mg Tablet] dilTIAZem HCl [Diltiazem 360mg 360 mg PO DAILY 12/20/17 06/12/19 History 24Hr ER Cap] lisinopriL [Lisinopril 40mg Tablet] 40 mg PO BID 12/20/17 06/12/19 History Apixaban [Eliquis] 5 mg PO DAILY 02/17/18 06/12/19 History Albuterol Sulfate [Albuterol HFA 1 - 2 puffs IH Q4-6H PRN 04/21/18 06/12/19 History Inhaler] Budesonide/Formoterol Fumarate 10.2 gm IH BID 04/21/18 06/12/19 History [Symbicort 160-4.5 Mcg Inhaler] Finasteride [Proscar 5mg Tablet] 5 mg PO DAILY 06/13/19 06/13/19 History Flecainide Acetate [Tambocor 50mg 50 mg PO BID 06/13/19 06/13/19 History tablet] Fluticasone/Vilanterol [Breo 1 puff PO DAILY 06/13/19 06/13/19 History Ellipta 200-25 Mcg INH] Spironolactone [Spironolactone 50 mg PO DAILY 06/13/19 06/13/19 History 25mg Tablet] Tamsulosin HCl 0.8 mg PO DAILY 06/13/19 06/13/19 History Torsemide [Demadex 20mg tablet] 20 mg PO DAILY 06/13/19 06/13/19 History allopurinoL [Allopurinol 300mg 300 mg PO DAILY 06/13/19 06/13/19 History tablet] Prescriptions/Medication Reconciliation: Continued lisinopriL [Lisinopril 40mg Tablet] 40 mg PO BID Hydralazine HCl [Hydralazine HCl 25mg Tablet] 25 mg PO TID Gabapentin [Gabapentin 100mg Cap] 300 mg PO TID Furosemide [Furosemide 40MG tAB] 40 mg PO BID dilTIAZem HCl [Diltiazem 360mg 24Hr ER Cap] 360 mg PO DAILY bisoproloL fumarate [Bisoprolol 10mg Tablet] 10 mg PO DAILY Apixaban [Eliquis] 5 mg PO DAILY Fluticasone/Vilanterol [Breo Ellipta 200-25 Mcg INH] 1 puff PO DAILY Potassium Chloride [Pot Chlor 10 mEq Tab] 10 meq PO BID Albuterol Sulfate [Albuterol HFA Inhaler] 1 - 2 puffs IH Q4-6H PRN PRN Reason: Shortness Of Breath Or Wheezing Budesonide/Formoterol Fumarate [Symbicort 160-4.5 Mcg Inhaler] 10.2 gm IH BID allopurinoL [Allopurinol 300mg tablet] 300 mg PO DAILY Finasteride [Proscar 5mg Tablet] 5 mg PO DAILY Flecainide Acetate [Tambocor 50mg tablet] 50 mg PO BID Spironolactone [Spironolactone 25mg Tablet] 50 mg PO DAILY Tamsulosin HCl 0.8 mg PO DAILY Torsemide [Demadex 20mg tablet] 20 mg PO DAILY - Problem Reconciliation Problems Reviewed?: Yes
== END 2019-06-13 10:30 | disposition home or self-care (01) ==
LOC: 2ND 15:55 → ER 15:55 → 2ND 20:30
PROVIDERS: ADMIT Internal Medicine Adolescent Medicine; ATTEND Internal Medicine Adolescent Medicine
CPT/HCPCS: 36415; 71020; 71046; 74176; 80048; 80053; 81001; 83605; 85007; 85025; 87040; 87275; 87276; 87486; 87581; 87633; 87798; 96365; 96375; 99281; G0378; J2405

== ENCOUNTER 2019-07-26 13:02 | Emergency (ER) | payer MEDICARE, SELFPAY ==
[2019-07-26] VITALS (17 sets, daily range): BP systolic 78–149; BP diastolic 35–96; PULSE 34–104; RESP 16–18; TEMP 36.6; O2SAT 94–100; BMI 36.2
--- NOTE | 2019-07-26 13:09 | HMH.EDGENADL ---
ED Disposition Clinical Impression: Hyperkalemia, Atrial fibrillation with slow ventricular response, Bradycardia Acute renal failure Qualifiers: Acute renal failure type: unspecified Qualified Code(s): N17.9 - Acute kidney failure, unspecified Hypotension Qualifiers: Hypotension type: unspecified hypotension type Qualified Code(s): I95.9 - Hypotension, unspecified Disposition: Xfer Short-Term Hosp Condition on Discharge: Critical Referrals: Provider,Referral, MD [Primary Care Provider] - Forms: Transfer Record - ED - Critical Care Critical Care Time: Yes Attestation: On , the high probability of a clinically significant, sudden or life threatening deterioration of the following system(s) required my full and direct attention, intervention and personal management. The time I documented below is in addition to time spent performing reported procedures but includes the following listed in this critical care notation. Total Critical Care Time: 60 Vital system(s) involved:: Circulatory Failure, Renal Failure My critical care processes included: Assessment & monitoring of V/S, Initial and Re-exams, Data Review/Interpretation, Coordinating Care, Medication Orders and management, Documentation Medical Decision Making - Medical Records Medical records reviewed: Yes: I reviewed the patient's medical records. - Carlos Inquiry Pt receiving controlled substance: No Vital Signs: 07/26/19 13:03 07/26/19 13:33 07/26/19 14:13 Temperature 97.9 F Temperature Source Oral Pulse Rate [Left Radial] 34 L 59 L 52 L Respiratory Rate 18 Blood Pressure [Right Arm] 78/46 L 112/47 L 120/35 L Blood Pressure Mean [Right Arm] 56 68 63 Blood Pressure Source [Right Arm] Blood Pressure Position [Right Arm] Sitting Sitting 02 Sat by Pulse Oximetry 98 Oxygen Delivery Method Room Air 07/26/19 14:41 07/26/19 15:53 07/26/19 16:17 Temperature Temperature Source Pulse Rate [Left Radial] 86 71 60 Respiratory Rate Blood Pressure [Right Arm] 149/56 H 125/96 H 117/58 L Blood Pressure Mean [Right Arm] 87 105 77 Blood Pressure Source [Right Arm] Automatic Cuff Automatic Cuff Blood Pressure Position [Right Arm] Sitting Sitting Sitting 02 Sat by Pulse Oximetry 94 L 97 Oxygen Delivery Method Room Air Room Air 07/26/19 17:32 07/26/19 18:10 07/26/19 19:00 Temperature Temperature Source Pulse Rate [Left Radial] 66 73 104 H Respiratory Rate 18 Blood Pressure [Right Arm] 125/72 143/65 H 90/49 L Blood Pressure Mean [Right Arm] 89 91 62 Blood Pressure Source [Right Arm] Automatic Cuff Automatic Cuff Blood Pressure Position [Right Arm] Sitting Sitting Supine 02 Sat by Pulse Oximetry 99 96 Oxygen Delivery Method Room Air 07/26/19 19:30 Temperature Temperature Source Pulse Rate [Left Radial] 74 Respiratory Rate 18 Blood Pressure [Right Arm] 93/41 L Blood Pressure Mean [Right Arm] 58 Blood Pressure Source [Right Arm] Automatic Cuff Blood Pressure Position [Right Arm] Supine 02 Sat by Pulse Oximetry 94 L Oxygen Delivery Method Room Air - Lab Data Lab results reviewed: Yes: I reviewed the patient's lab results. Lab Results 07/26/19 13:53: WBC 9.7, RBC 3.70 L, Hgb 11.6 L, Hct 38.3 L, MCV 103.6 H, MCH 31.5 H, MCHC 30.4 L, RDW 16.0, Plt Count 211, MPV 9.4, Neut % (Auto) 81.8 H, Lymph % (Auto) 12.8, Lucas % (Auto) 5.0, Eos % (Auto) 0.3, Baso % (Auto) 0.1, Neut # (Auto) 7.9 H, Lymph # (Auto) 1.3, Lucas # (Auto) 0.5, Eos # (Auto) 0.0, Baso # (Auto) 0.0 07/26/19 13:53: Sodium 137, Potassium 7.4 H*, Chloride 111 H, Carbon Dioxide 15 L, Anion Gap 18.4 H, BUN 94 H, Creatinine 5.30 H, Estimated Creat Clear 22, Estimated GFR 11 L*, Est GFR ( Amer) 13 L*, Glucose 135 H, Calcium 10.2, Magnesium 2.1, Total Bilirubin 0.3, AST 24, ALT 15, Alkaline Phosphatase 71, Troponin I 0.01, Total Protein 7.5, Albumin 4.0, Globulin 3.5 H, Albumin/Globulin Ratio 1.1, Amylase 96, Lipase 138 07/26/19 13:53: Lactate 1.5 07/26/19 13
--- NOTE | 2019-07-26 13:12 | ECG_ITS ---
APPROVED REPORT Exam: Resting ECG HR:120 bpm ECG Measurements Heart Rate 120 AXES QRSd 4 QRS 0 QT 250 T 104 QTc 353 <Conclusion> Undetermined rhythm Indeterminate axis Pulmonary disease pattern Nonspecific T wave abnormality Abnormal ECG Electronically signed by : Henrry Vegas, 07/27/2019 08:04:50
--- NOTE | 2019-07-26 13:28 | XR_ITS ---
PROCEDURE: XR CHEST PORTABLE CLINICAL HISTORY: weakness COMPARISON: XR CHEST 2V from 06/12/2019 FINDINGS: There is borderline cardiomegaly without failure. Minimal atelectatic changes right lung base. The remaining lungs are clear No acute bony abnormalities. There is an old left 8th rib fracture. IMPRESSION: Cardiomegaly with minimal right basilar atelectasis Dictated by: Ilir Cartagena MD 07/26/2019 15:02 Electronically signed by Ilir Cartagena MD in [place] 07/26/2019 15:02
--- NOTE | 2019-07-26 13:40 | PC.NURSE ---
Hector Henry at bedside
--- NOTE | 2019-07-26 13:44 | ECG_ITS ---
APPROVED REPORT Exam: Resting ECG HR:78 bpm ECG Measurements Heart Rate 78 AXES MI 154 P 203 QRSd 32 QRS -60 QT 354 T 192 QTc 403 <Conclusion> Variable rhythm consistent with tachycardia/bradycardia syndrome Left axis deviation Pulmonary disease pattern Inferior infarct, age undetermined Abnormal ECG Electronically signed by : Henrry Vegas, 07/27/2019 08:04:46
--- NOTE | 2019-07-26 13:47 | PC.NURSE ---
cardiology, edgardo at bedside
--- NOTE | 2019-07-26 13:58 | PC.NURSE ---
edgardo just spoke [facility]
[2019-07-26 14:07] LABS: Basophils % 0.1 % (0.1-2.0); Eosinophils % 0.3 % (0.1-12.0); Hematocrit 38.3 % (42.0-52.0); Hemoglobin 11.6 g/dL (14.1-18.0); Lymphocytes # 1.3 K/mm3 (0.7-4.5); Lymphocytes % 12.8 % (10-50); Mean Corpuscular HGB Conc 30.4 g/dL (31.8-35.4); Mean Corpuscular Hemoglobin 31.5 pg (27.0-31.2); Mean Corpuscular Volume 103.6 fl (80-94); Mean Platelet Volume 9.4 fl (7.4-10.4); Monocytes # 0.5 K/mm3 (0.1-1.0); Neutrophils # 7.9 K/mm3 (1.8-7.8); Neutrophils % 81.8 % (37.0-80.0); Platelet Count 211 K/mm3 (142-424); White Blood Count 9.7 K/mm3 (4.8-10.8)
[2019-07-26 14:09] LABS: Lactic Acid 1.5 mmol/L (0.7-2.1)
--- NOTE | 2019-07-26 14:19 | PC.NURSE ---
MOISES Love speaking with pt's and daughter at this time.
--- NOTE | 2019-07-26 14:22 | PC.NURSE ---
spoke with on phone, she states she would like pt to be admitted to [facility] for pacemaker. informed we are still waiting lab test results and we will call with pt update
--- NOTE | 2019-07-26 14:32 | HMH.CNCARD ---
History of Present Illness Consult date: 07/26/19 Requesting physician: Henrry Vegas Consult reason: atrial fibrillation Chief complaint: weakness, bradycardia Additional Medical History:: 1. Hypertension 2. Hyperlipidemia 3. Chronic atrial fibrillation, on Eliquis therapy 4. Remote tobacco use discontinued approximately 10 years ago, previously smoked 1 pack/day 5. History of gout 6. 6 cm left lower pole solid renal mass, abdominal CT, 06/2019 A. Reportedly monitoring by [facility] with no plans for surgery at this time 7. Chronic kidney disease, stage II with creatinine 1.6-1.9 and GFR 40-50, June 2019 A. Acute renal insufficiency with creatinine 5.3 and GFR 13, 07/2019 History of present illness: Brought in by ambulance. Patient says that he has not felt well for 2 weeks, complains of general sickness . General weakness, dizzy like he is going to fall. Nausea and vomiting, diarrhea for the past couple of days. Says that he thinks he has had a fever, says his has been checking his temperature, but he does not know the results. Minimal cough. Denies shortness of breath or chest pain. Denies rhinorrhea or sore throat. Complains of pain in his lower back down into his legs bilaterally. Says that his feet feel numb. He was admitted here through the emergency room 06/12/2019 and discharged the next day. At that point he had nausea, shakiness, weakness, and was discovered to have a renal mass. He says he has been seen in [place] for the renal mass and they did not recommend any tests or treatment at this point, but says he is supposed to go for further testing in 6 months. The above per Dr. Conde Patient denies any history of cardiovascular disease outside of his atrial fibrillation and hypertension. He believes he has had some mini strokes but has no residual deficits. He is generally somewhat of a poor historian but a pleasant gentleman. Remote history of tobacco use. He denies being diabetic. He has a longstanding history of hypertension. Initial EKG on admission to the ER shows atrial fibrillation with a bradycardic rate of approximately 36 bpm with interventricular conduction delay, pulmonary disease pattern and poor R wave progression anteriorly. The patient was about to be given atropine when his heart rate improved to high 50s low 60s and then repeat EKG shows a heart rate of 78 bpm. Rhythm is undetermined but with a regular ventricular response. EKGs were sent to Dr. Smith and discussed by phone. The patient is on combination of beta-maura and calcium channel maura therapy for chronic atrial fibrillation and is now exhibiting further deterioration of his conduction system with transient symptomatic bradycardia. Patient denies syncope or near syncopal episodes but does relate extreme weakness and fatigue. It is felt that he needs permanent pacemaker insertion. After discussion with the patient's family they have decided to be admitted here and have the procedure done tomorrow after holding his Eliquis tonight. Early lab results show possible hyperkalemia which could be the cause for the patient's bradycardia if confirmed. If so the patient will need correction of hyperkalemia prior to decision on pacemaker insertion. [facility] History Medical History: Reports:: Hyperlipidemia, Hypertension, Palpitations Denies:: Cancer, Diabetes Mellitus Type 1, Diabetes Mellitus Type 2, Internal Pacemaker, MRSA, Seizures *Have you ever received a pneumonia vaccine?: Yes *Have you received a flu vaccine this season?: Yes Other Medical History: Reports: Arthritis Other Surgeries: Yes: No Previous Surgery. No: Pacemaker Amputation: No Fractures: No - *Social History Smoking Status: Former smoker Tobacco Type: cigarettes # Packs/Day (cigarettes): 1 #Yrs smoked (if former smoker): 39 Alcohol Intake: never *Occupational Status:: other Housing: house Household Members: spouse *Travel in the last 8 weeks: None Family Hx::
--- NOTE | 2019-07-26 14:40 | CA_ITS ---
APPROVED REPORT EXAM: Comprehensive 2D, Doppler, and color-flow Echocardiogram Rail Assembler: Symone Terry RVT Ht: 5 ft 11 in Wt: 260lbs BSA: 2.36 BP: 120/35 mmHg Indications: Atrial Fibrillation, Palpitations, Hyperlipidemia, Hypertension,Scheduled for pacer 07/27/19,Renal mass TDS 2D Dimensions LVOT 1.61 cm (M/F) 1.5-2.5 M-Mode Dimensions RVDd 2.49 cm (0.9-2.6) LVDd 6.16 cm (3.5-5.7) LVDs 4.05 cm (3.5-5.7) IVSd 0.63 cm (0.6-1.1) PWd 0.80 cm (0.6-1.1) EF (Teich) 62.30% FS 34.30% EDV (Teich) 191.10 mL ESV (Teich) 72.10 mL LV Diastology E/A Ratio 1.14 Aortic Valve LVOT Max 128.00 (70-110 cm/s) LVOT VTI 27.37 cm Mitral Valve MV A Velocity 83.00 (40-130 cm/s) Left Ventricle Left atrium is mildly enlarged, left ventricle is normal size, mild concentric left ventricular hypertrophy, visually estimated ejection fraction 55% with no regional wall motion abnormality. Endocardial surfaces are poorly visualized, diastolic parameters are inconclusive. Right Ventricle Right atrium and right ventricular normal size and contractility. Aortic Valve Aortic valve is thickened and calcified leaflets are not well visualized. The average maximum aortic outflow velocity 2.5 m/s, resulting in a mean gradient of 14 mmHg across the aortic valve this likely represents mild aortic stenosis, there is no aortic insufficiency. Valve area is not accurately calculated Mitral Valve Mitral valve leaflets are minimally thickened, there is mild mitral regurgitation. Tricuspid Valve Tricuspid valve is grossly normal, there is mild tricuspid regurgitation. Pulmonic Valve Pulmonic valve is poorly visualized. Great Vessels Aortic root is normal size. Pericardium No significant pericardial effusion noted Conclusion 1. Technically difficult study because of the patient fact in poor acoustic windows 2. Mildly enlarged left atrium, normal left ventricular size, mild concentric left ventricular hypertrophy, visually estimated ejection fraction 55% with no regional wall motion abnormality, diastolic parameters are inconclusive. 3. Thickened and calcified aortic valve leaflets are not well visualized, average mean gradient across valve is 14 mmHg this likely represents mild aortic stenosis, there is no aortic insufficiency. 4. Mild mitral and tricuspid regurgitation. 5. No significant pericardial effusion noted. Electronically signed by : Darinel Asencio, 07/27/2019 11:12:33
--- NOTE | 2019-07-26 14:41 | PC.NURSE ---
[facility] lab aware of orders and will be coming down to do echo
[2019-07-26 14:49] LABS: Alanine Aminotransferase 15 U/L (12-78); Albumin/Globulin Ratio 1.1 (1.1-1.8); Alkaline Phosphatase 71 U/L (38-126); Amylase 96 U/L (30-110); Anion Gap 18.4 mEq/L (5-15); Aspartate Amino Transferase 24 U/L (17-59); Bilirubin,Total 0.3 mg/dl (0.2-1.3); Calcium 10.2 mg/dl (8.4-10.2); Carbon Dioxide 15 mmol/L (22.0-30.0); Chloride 111 mmol/L (98-107); Creatinine Clearance Estimated 22 mL/min (50-200); Estimated Glomerular Filt Rate 11 ml/min (>60); GFR (African American) 13 ML/MIN (>60); Globulin 3.5 g/dL (1.3-3.2); Glucose 135 mg/dl (74-100); Lipase 138 U/L (23-300); Magnesium 2.1 mg/dl (1.6-2.3); Sodium 137 mmol/L (136-145); Total Protein,Serum 7.5 g/dl (6.3-8.2)
[2019-07-26 14:51] LABS: Potassium 7.4 mmoL/L (3.5-5.1)
[2019-07-26 14:52] LABS: Blood Urea Nitrogen 94 mg/dl (9-20)
[2019-07-26 15:05] LABS: Troponin I 0.01 ng/ml (0.00-0.034)
[2019-07-26 15:18] LABS: Free Thyroxine Index 4.1 ug/dL (5.93-13.13); T4 (Thyroxine) 10.7 ug/dl (5.53-11.0); Triiodothryronine (T3) Uptake 38 % (23.5-40.5)
[2019-07-26 15:32] LABS: Thyroid Stimulating Hormone 0.27 uIU/mL (0.465-4.68)
[2019-07-26 16:05] LABS: Microscopic, Urine URINE MICROSCOPIC (MICROSCOPIC)
[2019-07-26 16:07] LABS: Appearance,Urine CLEAR (Clear); Bilirubin,Urine Negative (Negative); Blood, Urine Negative (Negative); Color,Urine YELLOW (Yellow); Glucose,Urine (UA) Negative (Negative); Ketones,Urine Negative (Negative); Leukocyte Esterase,Urine Negative (Negative); Nitrate,Urine Negative (Negative); PH,Urine 5.5 (5.0-8.5); Protein,Urine Negative (Negative); Urobilinogen,Urine 0.2 EU/dl (0.2)
[2019-07-26 16:14] LABS: Amorphous Sediment,Urine 2+ /lpf; Hyaline Casts,Urine Occasional #/lpf (0); RBC,Urine Occasional #/hpf (0-3); WBC,Urine Occasional #/hpf (0-3)
--- NOTE | 2019-07-26 16:35 | PC.NURSE ---
SPEAKING TO DR KUMAR AT THIS TIME
--- NOTE | 2019-07-26 17:28 | PC.NURSE ---
Dr Diaz with [facility] to return call.
--- NOTE | 2019-07-26 17:28 | PC.NURSE ---
DR KUMAR AGREED TO ADMIT PT BUT HE CALLED DR SMALL AND HE REQUESTED PT BE TRANSFERRED
--- NOTE | 2019-07-26 17:42 | PC.NURSE ---
Dr Diaz returned call.
[2019-07-26 17:44] LABS: Troponin I < 0.01 ng/ml (0.00-0.034)
[2019-07-26 18:14] LABS: Potassium 7.6 mmoL/L (3.5-5.1)
--- NOTE | 2019-07-26 19:20 | PC.NURSE ---
this nurse walked in to room to obtain repeat potassium and found patient to be sitting upright in chair beside bed, pulling on murphy catheter with his pants around his ankles. all vs monitor lines had been removed per the patient either by his movements or by his disorientation. pt able to verify he knows that he is at [facility] for chest pain eval and that his muscles are twitching and that he is waiting on transfer to [place] for high blood levels. verifies the month and year. pt does state he doesn't remember getting up. but also states he scooted to the4 end of the bed. placed patient back to bed, cleaned off his arms from dried blood. verified murphy patency; placed back on wheel presser. iv re-established. blood sugar checked.
[2019-07-26 19:38] LABS: POC Glucose,Bedside 111 (70-110)
[2019-07-26 19:42] LABS: Potassium 6.2 mmoL/L (3.5-5.1)
--- NOTE | 2019-07-26 19:45 | PC.NURSE ---
call [facility] and advised them of the potassium change and they informed they would let the know and give us a call when they have a bed assignment.
[2019-07-26 19:57] LABS: Troponin I < 0.01 ng/ml (0.00-0.034)
--- NOTE | 2019-07-26 20:16 | PC.NURSE ---
bed assiginment to [facility] at [facility]. call report to
--- NOTE | 2019-07-26 20:28 | PC.NURSE ---
Report to Wendie Botello RN at [facility] notified of transport, will be a couple hours before Truck is available
--- NOTE | 2019-07-26 20:47 | PC.NURSE ---
[facility] called and changed the room to CCU, report was recalled to [place] IRENE in the CCU
--- NOTE | 2019-07-26 22:24 | PC.NURSE ---
Pt had a large liquid BM similar to a stool post Kayexalate ingestion.
--- NOTE | 2019-07-26 23:43 | PC.NURSE ---
[facility] here for transport to [facility] CCU, report to [place] Roll Setter.
--- NOTE | 2019-07-26 23:53 | PC.NURSE ---
Update report called to [place] [facility]
[2019-07-27 02:19] LABS: POC Glucose,Bedside 97 (70-110)
== END 2019-07-26 23:54 | disposition short-term general hospital (02) ==
PROVIDERS: Emergency Provider Emergency Medicine
DX: E87.5 Hyperkalemia (principal); I48.91 Unspecified atrial fibrillation; N17.9 Acute kidney failure, unspecified; I95.9 Hypotension, unspecified; Z79.899 Other long term (current) drug therapy; Z87.891 Personal history of nicotine dependence; Z88.0 Allergy status to penicillin
CPT/HCPCS: 36415; 71045; 80053; 81001; 82150; 82962; 83605; 83690; 83735; 84132; 84436; 84443; 84479; 84484; 85025; 87040; 93005; 93306; 96365; 96366; 96367; 96375; 96376; 99285

== ENCOUNTER → 2019-11-22 10:59 | Outpatient (CLI) | payer MEDICARE, SELFPAY ==
--- NOTE | 2019-11-22 11:05 | XR_ITS ---
PROCEDURE: XR FOOT WT BEARING LT 3V CLINICAL INDICATION: pain COMPARISON: CR [id number] XR foot LT min 3V from 04/21/2018 FINDINGS: Osteoarthritic changes are present at the 1st metatarsophalangeal joint with subarticular cystic changes at the distal aspect of the 1st metatarsal and some periarticular calcification at the distal aspect of the 1st metatarsal. These findings are not significantly changed. There is generalized osteopenia. Pes planus is noted with degenerative changes of the midfoot and flexion deformity of the 2nd toe. Overall no significant change from the previous exam. IMPRESSION: No acute findings. Osteoarthritic changes are present at the 1st metatarsophalangeal joint with subarticular cystic changes at the distal aspect of the 1st metatarsal and some periarticular calcification at the distal aspect of the 1st metatarsal. These findings are not significantly changed. There is generalized osteopenia. Pes planus is noted with degenerative changes of the midfoot and flexion deformity of the 2nd toe. Overall no significant change from the previous exam. Dictated b Ilir Cartagena MD 11/22/2019 11:49 Ilir Cartagena MD in [place] 11/22/2019 11:49
--- NOTE | 2019-11-22 11:05 | XR_ITS ---
PROCEDURE: XR ANKLE WT BEARING LT MIN 3V CLINICAL INDICATION: pain Left ankle pain COMPARISON: No exams were available for comparison FINDINGS: No fracture or dislocation. The joint space is well preserved. No lytic or blastic change of the ankle. Please see foot for further description IMPRESSION: Negative ankle Dictated b Ilir Cartagena MD 11/22/2019 11:49 Ilir Cartagena MD in [place] 11/22/2019 11:49
== END ==
PROVIDERS: PCP Internal Medicine Adolescent Medicine; Visit Provider Nurse Practitioner
DX: M25.572 Pain in left ankle and joints of left foot; M79.672 Pain in left foot
CPT/HCPCS: 73610; 73630

== ENCOUNTER 2020-01-11 02:05 | Observation (INO) | payer MEDICARE, SELFPAY ==
[2020-01-11] VITALS (15 sets, daily range): BP systolic 134–204; BP diastolic 84–148; PULSE 70–97; RESP 17–24; TEMP 36.7–37; O2SAT 90–97; BMI 30.8; BMI 38.2
--- NOTE | 2020-01-11 02:10 | ECG_ITS ---
APPROVED REPORT Exam: Resting ECG HR:97 bpm ECG Measurements Heart Rate 97 AXES WV 256 P 60 QRSd 84 QRS 25 QT 314 T 80 QTc 398 <Conclusion> Sinus rhythm with 1st degree AV block Low voltage QRS Nonspecific ST and T wave abnormality Abnormal ECG Electronically signed by : Glenn Ho, 01/11/2020 16:34:49
--- NOTE | 2020-01-11 02:12 | XR_ITS ---
PROCEDURE: XR CHEST 2V CLINICAL HISTORY: shortness of breath COMPARISON: CR XR CHEST 2V from 06/12/2019 CR XR CHEST PORTABLE from 07/26/2019 FINDINGS: The lung jones are well expanded. There is discoid atelectasis at the right base and right costophrenic angle. There is borderline cardiomegaly. There is mild prominence of the upper lobe vessels. There is slight thickening of the minor fissure. There is significant motion artifact on the lateral chest radiograph the tract in from adequate evaluation. IMPRESSION: Mild cardiomegaly with findings of mild or early congestive failure and suggest clinical correlation Dictated by: Dr. Denny Arora MD 01/11/2020 08:56 Dr. Denny Arora MD in [place] 01/11/2020 08:56
--- NOTE | 2020-01-11 02:14 | CT_ITS ---
PROCEDURE: CT ABDOMEN PELVIS W CON CLINICAL INDICATION: epigastric abdominal pain COMPARISON: CT CT ABDOMEN PELVIS WO CON from 06/12/2019 TECHNIQUE: Axial images obtained with sagittal and coronal reformats. All CT scans at the facility use one or more dose reduction, viz: automated exposure control, ma/kV adjustment per patient size (including targeted exams where dose is matched to indication, i.e. head), or iterative reconstruction technique. FINDINGS: Lower thorax: Minimal right basilar atelectasis there is no pleural fluid. ABDOMEN: Liver: The liver is normal in size and there is a focal calcified granuloma right superior lateral liver capsule. Gallbladder: Nondistended. No radio opaque stones. Pancreas: No masses or peripancreatic fluid collections. Spleen: The spleen is normal in size, there are couple of tiny calcified granulomata noted. Adrenals: There is mild adrenal hyperplasia left side greater than right. Kidneys/ureters: The kidneys are normal in size. There is benign-appearing cortical cyst midpole anteriorly right kidney measuring measuring 3.8 x 3.6 x 3.4 cm. There is a similar benign-appearing cortical cyst lower pole left kidney measuring 6.1 x 6.0 x 5.4 cm. There is no obstructive uropathy on either side. ABDOMEN & PELVIS: Stomach bowel: The stomach appears grossly normal, the gastric wall is slightly prominent but likely due to non distention with no significant food particles within the stomach. The small bowel is unremarkable. There is scattered stool and gas in the ascending and transverse colon. There is diffuse diverticulosis of the lower descending and sigmoid colon without evidence of diverticulitis. Peritoneum: No abnormal fluid collections. No obvious inflammatory changes. No free air. Lymph nodes: There is a slightly enlarged left inguinal lymph node with surrounding hazy fat stranding suggesting possible inflammation Vasculature: There is mild tortuosity of the lower abdominal aorta with scattered arteriosclerotic calcifications. Bones: There is moderate multilevel degenerate changes of the lower thoracic and lumbar spine PELVIS: Reproductive: unremarkable Bladder: The urinary bladder is partially decompressed but otherwise appears normal. The prostate is normal. Appendix: There are no definite findings of appendicitis. IMPRESSION: No acute abdominal or pelvic pathology identified, there are findings of moderate diffuse diverticulosis lower descending and sigmoid colon without diverticulitis. Dictated by: Dr. Denny Arora MD 01/11/2020 09:18 Dr. Denny Arora MD in [place] 01/11/2020 09:18
--- NOTE | 2020-01-11 02:16 | HMH.EDGENADL ---
ED Disposition Clinical Impression: Volume overload Qualifiers: Hypervolemia type: unspecified Qualified Code(s): E87.70 - Fluid overload, unspecified Sepsis Qualifiers: Severe sepsis acute organ dysfunction type: acute respiratory failure Acute respiratory failure type: unspecified Severe sepsis shock status: without septic shock Disposition: Admitted As Inpatient Condition on Discharge: Good - Critical Care Critical Care Time: No Attestation: On , the high probability of a clinically significant, sudden or life threatening deterioration of the following system(s) required my full and direct attention, intervention and personal management. The time I documented below is in addition to time spent performing reported procedures but includes the following listed in this critical care notation. Medical Decision Making - Medical Records Medical records reviewed: Yes: I reviewed the patient's medical records. - Carlos Inquiry Pt receiving controlled substance: No Vital Signs: 01/11/20 02:10 01/11/20 02:43 01/11/20 03:39 Temperature 98.6 F Temperature Source Oral Pulse Rate [Right] 92 H 97 H 82 Respiratory Rate 24 22 22 Blood Pressure [Right Arm] 204/122 H 172/148 H 169/113 H Blood Pressure Mean [Right Arm] 149 156 131 Blood Pressure Source [Right Arm] Automatic Cuff Blood Pressure Position [Right Arm] Supine 02 Sat by Pulse Oximetry 92 L 91 L 91 L Oxygen Delivery Method Room Air Room Air - Lab Data Lab Results 01/11/20 02:28: WBC 19.6 H, RBC 4.40 L, Hgb 14.1, Hct 43.2, MCV 98.3 H, MCH 32.1 H, MCHC 32.7, RDW 16.4, Plt Count 188, MPV 8.6, Neut % (Auto) 93.8 H, Lymph % (Auto) 2.1 L, Rankin % (Auto) 2.9, Eos % (Auto) 1.1, Baso % (Auto) 0.1, Neut # (Auto) 18.4 H, Lymph # (Auto) 0.4 L, Rankin # (Auto) 0.6, Eos # (Auto) 0.2, Baso # (Auto) 0.0, Total Counted 100, Neutrophils % (Manual) 96 H, Lymphocytes % (Manual) 4 L, Platelet Estimate Normal, Stomatocytes 1+ 01/11/20 02:28: PT 11.9 H, INR 1.08 01/11/20 02:28: Sodium 140, Potassium 3.8, Chloride 103, Carbon Dioxide 32 H, Anion Gap 8.8, BUN 13, Creatinine 1.00, Estimated Creat Clear 96, Estimated GFR 74, Est GFR ( Amer) 89, Glucose 142 H, Calcium 9.8, Total Bilirubin 0.9, AST 26, ALT 47, Alkaline Phosphatase 95, Troponin I 0.04 H, Total Protein 7.4, Albumin 3.9, Globulin 3.5 H, Albumin/Globulin Ratio 1.1 01/11/20 02:28: Lipase 25 01/11/20 02:28: NT-Pro-B Natriuret Pep 1750 H 01/11/20 02:28: Lactate 1.0 Result diagrams: 01/11/20 02:28 01/11/20 02:28 Orders (Tests/Meds): ED MEDICATIONS Generic Name Dose Route Start Last Admin Trade Name Freq PRN Reason Stop Dose Admin Ceftriaxone Sodium 2 gm/ 100 mls @ 200 mls/hr 01/11/20 03:45 Sodium Chloride IV 01/25/20 03:44 Q24H CHARLINE Protocol Nitroglycerin 0.4 mg 01/11/20 02:12 01/11/20 02:39 Nitroglycerin 0.4mg Sl Tablet SL 01/12/20 02:12 1 tab [id number] PRN Administration Chest Pain Vancomycin HCl 2,000 mg 01/11/20 03:39 Vancomycin 1000mg Vial IV 01/11/20 03:40 ONCE ONE Protocol Discontinued Medications Generic Name Dose Route Start Last Admin Trade Name Freq PRN Reason Stop Dose Admin Albuterol/Ipratropium 3 ml 01/11/20 02:13 01/11/20 02:39 Albuterol/Ipratropium 3 Ml Neb IH 01/11/20 02:14 3 ml ONCE ONE Administration Aspirin 324 mg 01/11/20 02:12 01/11/20 02:39 Aspirin 81mg Chewable Tablet PO 01/11/20 02:13 324 mg ONCE ONE Administration Furosemide 40 mg 01/11/20 03:39 Furosemide 40mg/4ml Vial IV 01/11/20 03:40 ONCE ONE Ioversol 75 ml 01/11/20 03:40 01/11/20 03:41 Ioversol-350 (74%) 100ml Vial IV 01/11/20 03:41 75 ml ONCE ONE Administration Protocol Sodium Chloride 10 ml 01/11/20 03:40 01/11/20 03:41 Sodium Chloride 0.9% 10ml Syr (Rad Only) IV 01/11/20 03:41 10 ml ONCE ONE Administration ORDERS Category Date Time Status CT abdomen pelvis w con Stat Cat Scan 01/11/20 02:14 Ordered
[2020-01-11 02:41] LABS: Basophils % 0.1 % (0.1-2.0); Eosinophils # 0.2 K/mm3 (0.0-0.4); Eosinophils % 1.1 % (0.1-12.0); Hematocrit 43.2 % (42.0-52.0); Hemoglobin 14.1 g/dL (14.1-18.0); Lymphocytes # 0.4 K/mm3 (0.7-4.5); Lymphocytes % 2.1 % (10-50); Mean Corpuscular HGB Conc 32.7 g/dL (31.8-35.4); Mean Corpuscular Hemoglobin 32.1 pg (27.0-31.2); Mean Corpuscular Volume 98.3 fl (80-94); Mean Platelet Volume 8.6 fl (7.4-10.4); Monocytes # 0.6 K/mm3 (0.1-1.0); Monocytes % 2.9 % (1.7-9.3); Neutrophils # 18.4 K/mm3 (1.8-7.8); Neutrophils % 93.8 % (37.0-80.0); Platelet Count 188 K/mm3 (142-424); Red Cell Distribution Width 16.4 % (11.5-17.5); White Blood Count 19.6 K/mm3 (4.8-10.8)
[2020-01-11 02:48] LABS: Lipase 25 U/L (23-300)
[2020-01-11 02:50] LABS: Alanine Aminotransferase 47 U/L (12-78); Albumin Level 3.9 g/dl (3.5-5.0); Albumin/Globulin Ratio 1.1 (1.1-1.8); Alkaline Phosphatase 95 U/L (38-126); Anion Gap 8.8 mEq/L (5-15); Aspartate Amino Transferase 26 U/L (17-59); Bilirubin,Total 0.9 mg/dl (0.2-1.3); Blood Urea Nitrogen 13 mg/dl (9-20); Calcium 9.8 mg/dl (8.4-10.2); Carbon Dioxide 32 mmol/L (22.0-30.0); Chloride 103 mmol/L (98-107); Creatinine Clearance Estimated 96 mL/min (50-200); Estimated Glomerular Filt Rate 74 ml/min (>60); GFR (African American) 89 ML/MIN (>60); Globulin 3.5 g/dL (1.3-3.2); Glucose 142 mg/dl (74-100); MANUAL DIFFERENTIAL MANUAL DIFFERENTIAL (MANUAL DIFF); Potassium 3.8 mmoL/L (3.5-5.1); Sodium 140 mmol/L (136-145); Total Protein,Serum 7.4 g/dl (6.3-8.2)
[2020-01-11 02:53] LABS: INR 1.08 (0.9-1.1); Prothrombin Time 11.9 seconds (9.4-11.8)
[2020-01-11 02:59] LABS: NT Pro Brain Natriuretic Pep. 1750 pg/mL (0-125)
[2020-01-11 03:01] LABS: Troponin I 0.04 ng/ml (0.00-0.034)
[2020-01-11 03:22] LABS: Lymphocytes % 4 % (10-50); Neutrophils % 96 % (42-76); Platelet Estimate Normal; Stomatocytes 1+; Total Cells Counted 100
[2020-01-11 04:10] LABS: Coronavirus 19 IgG Antibody Negative (Negative); Coronavirus 19 IgM Antibody Negative (Negative)
[2020-01-11 04:14] LABS: Microscopic, Urine URINE MICROSCOPIC (MICROSCOPIC)
[2020-01-11 04:15] LABS: Appearance,Urine CLEAR (Clear); Bilirubin,Urine Negative (Negative); Blood, Urine TRACE-I (Negative); Color,Urine YELLOW (Yellow); Glucose,Urine (UA) Negative (Negative); Ketones,Urine Negative (Negative); Leukocyte Esterase,Urine Negative (Negative); Nitrate,Urine Negative (Negative); PH,Urine 6.5 (5.0-8.5); Protein,Urine 3+ (Negative); Specific Gravity, Urine 1.025 (1.005-1.030)
[2020-01-11 04:24] LABS: Bacteria,Urine 1+ /lpf; Mucus,Urine 1+ /lpf; WBC,Urine Occasional #/hpf (0-3)
--- NOTE | 2020-01-11 04:37 | PC.NURSE ---
PT ARRIVED VIA STRETCHER FROM ER W?STAFF @[id number]
[2020-01-11 05:46] LABS: POC Glucose,Bedside 112 (70-110)
[2020-01-11 06:25] LABS: Troponin I 0.06 ng/ml (0.00-0.034)
--- NOTE | 2020-01-11 06:38 | CA_ITS ---
APPROVED REPORT EXAM: Comprehensive 2D, Doppler, and color-flow Echocardiogram Licensed Physical Therapy Assistant: Symone Terry RVT Ht: 5 ft 10 in Wt: 273lbs BSA: 2.38 BP: 169/113 mmHg Indications: CHF,PNEUMONIA,SIRS,COPD,HTN,HLD,SOA,CP,EDEMA,PALPS,EX SMOKER 2D Dimensions LVOT 1.29 cm (M/F) 1.5-2.5 M-Mode Dimensions RVDd 2.79 cm (0.9-2.6) LVDd 4.51 cm (3.5-5.7) LVDs 3.24 cm (3.5-5.7) IVSd 1.27 cm (0.6-1.1) PWd 1.23 cm (0.6-1.1) EF (Teich) 54.60% FS 28.20% EDV (Teich) 92.90 mL ESV (Teich) 42.20 mL LV Diastology E/A Ratio 2.21 Aortic Valve LVOT Max 216.00 (70-110 cm/s) LVOT VTI 41.63 cm Mitral Valve MV A Velocity 43.00 (40-130 cm/s) Left Ventricle Left atrium is mildly enlarged, left ventricle is normal size, mild concentric left ventricular hypertrophy, visually estimated ejection fraction 50% with no regional wall motion abnormality, endocardial surfaces are poorly visualized. Grade 2 diastolic dysfunction seen with tissue Doppler evidence of raise left atrial pressure. Right Ventricle Right atrium and right ventricle are mildly enlarged with normal contractility. Aortic Valve Aortic valve is thickened and calcified with restriction in the leaflet mobility, the mean gradient across aortic valve is only 12 mmHg, however the valve area is calculated at 1.4 cm??? that likely represents moderate aortic stenosis, there is mild aortic insufficiency. Mitral Valve Mitral valve leaflets are minimally thickened, there is no mitral stenosis, there is mild mitral regurgitation. Tricuspid Valve Tricuspid valve is grossly normal, there is mild tricuspid regurgitation, tricuspid regurgitation jet velocity is inadequate for calculation of the right ventricular systolic pressure. Pulmonic Valve Pulmonic valve is poorly visualized. Great Vessels Aortic root is normal size. Pericardium No significant pericardial effusion noted. Conclusion 1. Mild biatrial enlargement, normal left ventricular size, mild concentric left ventricular hypertrophy, visually estimated ejection fraction 50% with no regional wall motion abnormality, endocardial surfaces are poorly visualized, grade 2 diastolic dysfunction seen with tissue Doppler evidence of raise left atrial pressure. 2. Thickened and calcified aortic valve with at least moderate aortic stenosis, the valve area is 1.4 cm???, there is mild aortic insufficiency present 3. Mild mitral and tricuspid regurgitation. 4. No significant pericardial effusion noted. Electronically signed by : Darinel Asencio, 01/11/2020 13:20:24
[2020-01-11 07:17] LABS: Basophils % 0.1 % (0.1-2.0); Eosinophils # 0.1 K/mm3 (0.0-0.4); Eosinophils % 0.3 % (0.1-12.0); Lymphocytes # 0.7 K/mm3 (0.7-4.5); Lymphocytes % 3.8 % (10-50); Mean Corpuscular HGB Conc 33.4 g/dL (31.8-35.4); Mean Corpuscular Hemoglobin 32.4 pg (27.0-31.2); Mean Platelet Volume 8.8 fl (7.4-10.4); Monocytes # 0.5 K/mm3 (0.1-1.0); Monocytes % 2.7 % (1.7-9.3); Neutrophils # 15.9 K/mm3 (1.8-7.8); Platelet Count 163 K/mm3 (142-424); Red Blood Count 4.33 M/mm3 (4.60-6.20); Red Cell Distribution Width 16.5 % (11.5-17.5)
--- NOTE | 2020-01-11 07:18 | P.CONPHA_ITS ---
[facility] [place] Pharmacy VTE Monitoring - Patient Demographics Admission date: 01/11/20 Report Date: 01/11/20 Time: 07:18 Allergies/Adverse Reactions: Patient Allergies Penicillins Allergy (Verified 01/11/20 05:45) Height: 1.8 m Weight: 123.944 kg Patient Problems: Current Active Problems Volume overload (Acute) Sepsis (Acute) Community acquired pneumonia (Acute) - VTE Risk Labs: VTE Related Lab Results Hgb 14.1 g/dL (14.1-18.0) 01/11/20 02:28 Hct 43.2 % (42.0-52.0) 01/11/20 02:28 Plt Count 188 K/mm3 (142-424) 01/11/20 02:28 PT 11.9 seconds (9.4-11.8) H 01/11/20 02:28 INR 1.08 (0.9-1.1) 01/11/20 02:28 BUN 13 mg/dl (9-20) 01/11/20 02:28 Creatinine 1.00 mg/dl (0.66-1.25) 01/11/20 02:28 Estimated Creat Clear 96 mL/min (50-200) 01/11/20 02:28 Was VTE Risk Assessment Performed: Yes VTE Score: 4 VTE Risk Level: Low Risk - Prophylaxis VTE Prophylaxis Ordered?: Yes Types of VTE Prophylaxis: TEDS Knee High Location of Applied Device: Bilateral Lower Extremeties
[2020-01-11 07:22] LABS: Chloride 101 mmol/L (98-107); Potassium 3.6 mmoL/L (3.5-5.1); Sodium 141 mmol/L (136-145)
[2020-01-11 07:25] LABS: Blood Urea Nitrogen 13 mg/dl (9-20); Creatinine Clearance Estimated 119 mL/min (50-200); Estimated Glomerular Filt Rate 74 ml/min (>60); GFR (African American) 89 ML/MIN (>60)
[2020-01-11 07:26] LABS: Anion Gap 12.6 mEq/L (5-15); Calcium 9.8 mg/dl (8.4-10.2); Carbon Dioxide 31 mmol/L (22.0-30.0); Glucose 126 mg/dl (74-100)
--- NOTE | 2020-01-11 08:59 | HMH.HP ---
*Admission Date: 01/11/20 *Chief complaint: Shortness of air and leg swelling *History of present illness: The patient is a 70 year old male who present to the ED with chest pain and shortness of breath. Patient on arrival is hypertensive to the 160s, satting 100% on 2L. Patients oxygen was removed and satting 94% on room air. He has bilateral wheezing and bilateral pedal edema. Has some epigastric tenderness to palpation. He was given duoneb in the ED. Labs including CBC, CMP, lipase, troponins, BNP and CXR were ordered. CT abdomen and pelvis was ordered. CXR on my read shows possible right sided pneumonia vs pulmonary edema. His WBC was 19. Troponin was elevated to 0.04. No ischemic changes on EKG. BNP was 1750, no comparison. Creatinine was WNL. Patient without an oxygen requirement but with significant dyspnea on any exertion. Will admit to Dr. Tam for volume overload vs. pneumonia / sepsis. He was given ceftriaxone, vancomycin as well as 40 lasix IV. Above note per ER physician. Patient was in my office earlier this week and was comfortable and breathing well. He does not recall anything that happened but I have a hunch he may have had some dietary noncompliance. [facility] History I have reviewed the patient's past medical history: Yes Medical History: Reports:: Atrial Fibrillation, Chronic Obstructive Pulmonary Disease (COPD), Hyperlipidemia, Hypertension, Palpitations Denies:: Cancer, Diabetes Mellitus Type 1, Diabetes Mellitus Type 2, Home Oxygen, Internal Pacemaker, MRSA, Seizures *Have you ever received a pneumonia vaccine?: No *Have you received a flu vaccine this season?: No Other Medical History: Reports: Arthritis Laterality Cases: Bilateral: Other Other Surgeries: Yes: No Previous Surgery, Appendectomy, Colonoscopy, Other. No: Pacemaker Amputation: No Fractures: No - *Social History Last grade of school completed: 11th or 12th Smoking Status: Former smoker Tobacco Type: cigarettes # Packs/Day (cigarettes): 1 #Yrs smoked (if former smoker): 39 Alcohol Intake: never *Occupational Status:: disabled Housing: house Household Members: spouse *Travel in the last 8 weeks: None Family Hx:: Hyperlipidemia, Hypertension Review of Systems - Review of Systems Review of systems:: pertinent systems reviewed and negative unless documented below Patient denies chest pain or abdominal complaints, reports dyspnea and leg swelling but this is improving after IV Lasix. Otherwise denies new rash, neurologic symptoms or other orthopedic symptoms Meds Home Medications Medication Instructions Recorded Confirmed Type Hydralazine HCl [Hydralazine HCl 25 mg PO TID 12/20/17 01/11/20 History 25mg Tablet] Apixaban [Eliquis] 2.5 mg PO BID 02/17/18 01/11/20 History Flecainide Acetate [Tambocor 50mg 50 mg PO BID 06/13/19 01/11/20 History tablet] Fluticasone/Vilanterol [Breo 1 puff PO DAILY 06/13/19 01/11/20 History Ellipta 200-25 Mcg INH] Loratadine [Allergy] 10 mg PO DAILY 06/13/19 01/11/20 History Tamsulosin HCl 0.8 mg PO DAILY 06/13/19 01/11/20 History allopurinoL [Allopurinol 300mg 300 mg PO DAILY 06/13/19 01/11/20 History tablet] Finasteride [Proscar] 5 mg PO DAILY 01/11/20 01/11/20 History Lidocaine [Lidoderm 5% transdermal 1 patch TOPICAL DAILY 01/11/20 01/11/20 History patch] Multivitamin with Minerals [One 1 each PO DAILY 01/11/20 01/11/20 History Daily Complete] bisoproloL fumarate [Bisoprolol 5 mg PO DAILY 01/11/20 01/11/20 History Fumarate] dilTIAZem HCl [Diltiazem 180mg 180 mg PO DAILY 01/11/20 01/11/20 History 24Hr ER Cap] Allergies Allergy/AdvReac Type Severity Reaction Status Date / Time Penicillins Allergy Verified 01/11/20 05:45 Exam Vital signs and Labs for Last 24 Hours: Temp Pulse Resp BP Pulse Ox 98.6 F 82 20 183/97 H 94 L 01/11/20 08:00 01/11/20 08:00 01/11/20 08:00 01/11/20 08:00 01/11/20 08:00 Laboratory Results - last 24 hr 01/11/20 02:28: WB
[2020-01-11 09:08] LABS: Troponin I 0.07 ng/ml (0.00-0.034)
--- NOTE | 2020-01-11 09:31 | HMH.PHACONS ---
- Pharmacy Consult Date: 01/11/20 Time: 09:31 Referring provider: DR. FOSTER Reason for Consult:: VANCOMYCIN DOSING Allergies and ADEs:: Allergies Allergy/AdvReac Type Severity Reaction Status Date / Time Penicillins Allergy Verified 01/11/20 05:45 Home Medications:: Home Medications Medication Instructions Recorded Confirmed Type Hydralazine HCl [Hydralazine HCl 25 mg PO TID 12/20/17 01/11/20 History 25mg Tablet] Apixaban [Eliquis] 2.5 mg PO BID 02/17/18 01/11/20 History Flecainide Acetate [Tambocor 50mg 50 mg PO BID 06/13/19 01/11/20 History tablet] Fluticasone/Vilanterol [Breo 1 puff PO DAILY 06/13/19 01/11/20 History Ellipta 200-25 Mcg INH] Loratadine [Allergy] 10 mg PO DAILY 06/13/19 01/11/20 History Tamsulosin HCl 0.8 mg PO DAILY 06/13/19 01/11/20 History allopurinoL [Allopurinol 300mg 300 mg PO DAILY 06/13/19 01/11/20 History tablet] Finasteride [Proscar] 5 mg PO DAILY 01/11/20 01/11/20 History Lidocaine [Lidoderm 5% transdermal 1 patch TOPICAL DAILY 01/11/20 01/11/20 History patch] Multivitamin with Minerals [One 1 each PO DAILY 01/11/20 01/11/20 History Daily Complete] bisoproloL fumarate [Bisoprolol 5 mg PO DAILY 01/11/20 01/11/20 History Fumarate] dilTIAZem HCl [Diltiazem 180mg 180 mg PO DAILY 01/11/20 01/11/20 History 24Hr ER Cap] Height: 1.8 m Weight: 123.944 kg Laboratory Results:: Laboratory Results - last 24 hr 01/11/20 02:28: WBC 19.6 H, RBC 4.40 L, Hgb 14.1, Hct 43.2, MCV 98.3 H, MCH 32.1 H, MCHC 32.7, RDW 16.4, Plt Count 188, MPV 8.6, Neut % (Auto) 93.8 H, Lymph % (Auto) 2.1 L, [place] % (Auto) 2.9, Eos % (Auto) 1.1, Baso % (Auto) 0.1, Neut # (Auto) 18.4 H, Lymph # (Auto) 0.4 L, [place] # (Auto) 0.6, Eos # (Auto) 0.2, Baso # (Auto) 0.0, Total Counted 100, Neutrophils % (Manual) 96 H, Lymphocytes % (Manual) 4 L, Platelet Estimate Normal, Stomatocytes 1+ 01/11/20 02:28: PT 11.9 H, INR 1.08 01/11/20 02:28: Sodium 140, Potassium 3.8, Chloride 103, Carbon Dioxide 32 H, Anion Gap 8.8, BUN 13, Creatinine 1.00, Estimated Creat Clear 96, Estimated GFR 74, Est GFR ( Amer) 89, Glucose 142 H, Calcium 9.8, Total Bilirubin 0.9, AST 26, ALT 47, Alkaline Phosphatase 95, Troponin I 0.04 H, Total Protein 7.4, Albumin 3.9, Globulin 3.5 H, Albumin/Globulin Ratio 1.1 01/11/20 02:28: Lipase 25 01/11/20 02:28: NT-Pro-B Natriuret Pep 1750 H 01/11/20 02:28: Lactate 1.0 01/11/20 02:28: SARS-CoV-2 IgG Ab (Rapid) Negative, SARS-CoV-2 IgM Ab (Rapid) Negative 01/11/20 04:05: Urine Color Yellow, Urine Appearance Clear, Urine pH 6.5, Ur Specific [place] 1.025, Urine Protein 3+, Urine Glucose (UA) Negative, Urine Ketones Negative, Urine Blood Trace-i, Urine Nitrate Negative, Urine Bilirubin Negative, Urine Urobilinogen 2.0, Ur Leukocyte Esterase Negative, Urine RBC 3-5, Urine WBC Occasional, Urine Bacteria 1+, Urine Mucus 1+ 01/11/20 05:32: Troponin I 0.06 H 01/11/20 05:32: WBC 17.0 H, RBC 4.33 L, Hgb 14.0 L, Hct 42.0, MCV 97.0 H, MCH 32.4 H, MCHC 33.4, RDW 16.5, Plt Count 163, MPV 8.8, Neut % (Auto) 93.0 H, Lymph % (Auto) 3.8 L, [place] % (Auto) 2.7, Eos % (Auto) 0.3, Baso % (Auto) 0.1, Neut # (Auto) 15.9 H, Lymph # (Auto) 0.7, [place] # (Auto) 0.5, Eos # (Auto) 0.1, Baso # (Auto) 0.0 01/11/20 05:32: Sodium 141, Potassium 3.6, Chloride 101, Carbon Dioxide 31 H, Anion Gap 12.6, BUN 13, Creatinine 1.00, Estimated Creat Clear 119, Estimated GFR 74, Est GFR ( Amer) 89, Glucose 126 H, Calcium 9.8 01/11/20 05:36: POC Glucose 112 H 01/11/20 08:15: Troponin I 0.07 H Medical History: Reports:: Atrial Fibrillation, Chronic Obstructive Pulmonary Disease (COPD), Hyperlipidemia, Hypertension, Palpitations Denies:: Cancer, Diabetes Mellitus Type 1, Diabetes Mellitus Type 2, Home Oxygen, Internal Pacemaker, MRSA, Seizures Assessment and Plan (1) Systolic CHF with reduced left ventricular function, NYHA class 2 Status: Acute Category: Medical Code(s): I50.20 - Unspecified systolic (congestive) heart failure (2
--- NOTE | 2020-01-11 09:56 | HMH.PHAINT ---
MEDICATION RECONCILIATION COMPLETED ON PATIENT USING EXTERNAL FILL HISTORY FROM PHARMACY AND LIST FROM MD OFFICE. -KWAKU CASHD
--- NOTE | 2020-01-11 17:23 | PC.NURSE ---
RT induced sputum with sodium chloride. Pt able to cough sputum up. RT walked sample to lab after obtained at 1719.
--- NOTE | 2020-01-11 18:28 | PC.NURSE ---
ALERT AND ORIENTED X4. COOPERATIVE. SPEECH IS FAST AND STUTTER NOTED. PT RESTED IN BED ALL OF SHIFT. HE STATED HE FEELS TOO WEAK TO AMBULATE OR GET UP TO CHAIR. LUNGS HAVE RHONCHI T/O, O2 SAT MID TO 90'S ON RA. NO COUGH NOTED. 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 ABDOMEN IS LARGE, ROUND, SOFT, AND NON-TENDER WITH ACTIVE BS IN ALL QUADS. NO BM THIS SHIFT. CABELLO CATHETER IS SECURE, PATENT, AND DRAINING CLEAR YELLOW URINE. APPETITE IS EXCELLENT. BLE +2 NON-PITTING EDEMA NOTED. VSS. NO DISTRESS NOTED. SAFETY MEASURES IN PLACE, WILL CONTINUE TO MONITOR.
--- NOTE | 2020-01-11 19:07 | PC.NURSE ---
report given to mirella
[2020-01-12] VITALS: BP 165/66; PULSE 60; PULSE 66; RESP 18; TEMP 36.9; O2SAT 91
--- NOTE | 2020-01-12 03:56 | PC.NURSE ---
PT a&ox4. scattered wheezes in lungs. pt on RA O2 sat 95%. BS active in all quads. 2+ pitting edema BLE. pt denies SOA and pain. F/C draining yellow clear urine. Pt has slept at intervals throughout shift
[2020-01-12 04:00] VITALS: BP 135/91; PULSE 54; PULSE 60; RESP 18; TEMP 36.6; O2SAT 98
[2020-01-12 05:00] VITALS: BMI 38.0
[2020-01-12 07:13] LABS: Basophils % 0.2 % (0.1-2.0); Eosinophils # 0.2 K/mm3 (0.0-0.4); Eosinophils % 1.6 % (0.1-12.0); Hematocrit 44.1 % (42.0-52.0); Hemoglobin 14.5 g/dL (14.1-18.0); Lymphocytes # 1.1 K/mm3 (0.7-4.5); Lymphocytes % 10.1 % (10-50); Mean Corpuscular Hemoglobin 31.8 pg (27.0-31.2); Mean Corpuscular Volume 96.6 fl (80-94); Mean Platelet Volume 8.5 fl (7.4-10.4); Monocytes # 0.5 K/mm3 (0.1-1.0); Monocytes % 4.6 % (1.7-9.3); Neutrophils # 9.4 K/mm3 (1.8-7.8); Neutrophils % 83.6 % (37.0-80.0); Platelet Count 170 K/mm3 (142-424); Red Blood Count 4.56 M/mm3 (4.60-6.20); Red Cell Distribution Width 16.1 % (11.5-17.5); White Blood Count 11.3 K/mm3 (4.8-10.8)
[2020-01-12 07:18] LABS: Chloride 100 mmol/L (98-107); Potassium 3.6 mmoL/L (3.5-5.1); Sodium 139 mmol/L (136-145)
[2020-01-12 07:21] LABS: Anion Gap 8.6 mEq/L (5-15); Blood Urea Nitrogen 15 mg/dl (9-20); Calcium 9.1 mg/dl (8.4-10.2); Carbon Dioxide 34 mmol/L (22.0-30.0); Creatinine Clearance Estimated 118 mL/min (50-200); Estimated Glomerular Filt Rate 74 ml/min (>60); GFR (African American) 89 ML/MIN (>60); Glucose 122 mg/dl (74-100)
[2020-01-12 08:00] VITALS: BP 138/76; PULSE 57; PULSE 70; RESP 20; TEMP 36.6; O2SAT 93
--- NOTE | 2020-01-12 08:34 | P.PN_ITS ---
Internal Medicine - PN: Subj *Date: 01/12/20 *Time: 08:34 Interval history: Overall patient feels pretty good. No complaints. Wishes his catheter out. Exam Vital signs and Labs for Last 24 Hours: Temp Pulse Resp BP Pulse Ox 97.8 F 54 L 18 135/91 H 98 01/12/20 04:00 01/12/20 04:00 01/12/20 04:00 01/12/20 04:00 01/12/20 04:00 Laboratory Results - last 24 hr 01/11/20 08:15: Troponin I 0.07 H 01/12/20 06:57: WBC 11.3 H D, RBC 4.56 L, Hgb 14.5, Hct 44.1, MCV 96.6 H, MCH 31.8 H, MCHC 33.0, RDW 16.1, Plt Count 170, MPV 8.5, Neut % (Auto) 83.6 H, Lymph % (Auto) 10.1, [place] % (Auto) 4.6, Eos % (Auto) 1.6, Baso % (Auto) 0.2, Neut # (Auto) 9.4 H, Lymph # (Auto) 1.1, [place] # (Auto) 0.5, Eos # (Auto) 0.2, Baso # (Auto) 0.0 01/12/20 06:57: Sodium 139, Potassium 3.6, Chloride 100, Carbon Dioxide 34 H, Anion Gap 8.6, BUN 15, Creatinine 1.00, Estimated Creat Clear 118, Estimated GFR 74, Est GFR ( Amer) 89, Glucose 122 H, Calcium 9.1 I & O for Last 24 hours: Intake & Output 01/09/20 01/10/20 01/11/20 01/12/20 11:59 11:59 11:59 11:59 Intake Total 340 / 340 830 / 830 Output Total 2500 / 2500 3300 / 3300 Balance -2160 / -2160 -2470 / -2470 Weight 273 lb 5.971 oz 271 lb 9.6 oz Microbiology Reports for the Last 24 Hours: Microbiology 01/11/20 17:19 Sputum - Expectorated Sputum Gram Stain - Final 01/11/20 17:19 Sputum - Expectorated Sputum Sputum Culture - Preliminary 01/11/20 02:28 Blood Blood Culture - Preliminary 01/11/20 04:05 Urine,Random Urine Culture - Preliminary NO GROWTH AFTER 24 HOURS Narrative: Weight loss noted. Patient has less ankle edema. No JVD. Lungs better with better air entry. Heart rate regular. Abdomen soft. Neurologically intact Assessment and Plan (1) Systolic CHF with reduced left ventricular function, NYHA class 2 Status: Acute Category: Medical Code(s): I50.20 - Unspecified systolic (congestive) heart failure (2) Community acquired pneumonia Status: Acute Category: Medical Code(s): J18.9 - Pneumonia, unspecified organism (3) Sepsis Status: Acute Qualifiers: Severe sepsis acute organ dysfunction type: acute respiratory failure Acute respiratory failure type: unspecified Severe sepsis shock status: without septic shock Category: Medical Code(s): A41.9 - Sepsis, unspecified organism - Assessment and plan all Dx Assessment and Plan for all problems:: Good improvement. Tolerating Entresto well with no hypotension. Take Pa catheter out, if urinates well today discharge home this afternoon
--- NOTE | 2020-01-12 11:14 | HMH.DCSUM ---
General - General Admission date:: 01/11/20 Discharge date: 01/12/20 HPI HPI: The patient is a 70 year old male who present to the ED with chest pain and shortness of breath. Patient on arrival is hypertensive to the 160s, satting 100% on 2L. Patients oxygen was removed and satting 94% on room air. He has bilateral wheezing and bilateral pedal edema. Has some epigastric tenderness to palpation. He was given duoneb in the ED. Labs including CBC, CMP, lipase, troponins, BNP and CXR were ordered. CT abdomen and pelvis was ordered. CXR on my read shows possible right sided pneumonia vs pulmonary edema. His WBC was 19. Troponin was elevated to 0.04. No ischemic changes on EKG. BNP was 1750, no comparison. Creatinine was WNL. Patient without an oxygen requirement but with significant dyspnea on any exertion. Will admit to Dr. Tam for volume overload vs. pneumonia / sepsis. He was given ceftriaxone, vancomycin as well as 40 lasix IV. Above note per ER physician. Patient was in my office earlier this week and was comfortable and breathing well. He does not recall anything that happened but I have a hunch he may have had some dietary noncompliance. Hospital Course Hospital Course: Patient was admitted, placed on IV diuresis, echocardiogram showed EF 40%. Given this new finding Entresto was started and he did very well with this. Good diuresis, correction of his lab abnormalities. No evidence of bacterial infection. This morning he was doing well, catheter was removed, was discharged with Entresto and his regular medications with close follow-up. Objective Vital signs: Temp Pulse Resp BP Pulse Ox 97.8 F 57 L 20 138/76 93 L 01/12/20 08:00 01/12/20 08:00 01/12/20 08:00 01/12/20 08:00 01/12/20 08:00 no acute distress - *Routine HEENT Exam Head: Present: normocephalic Eye: Present: EOMI, PERRL ENT: Present: mucous membranes moist - *Routine Neck Exam Present: supple - *Routine Respiratory Exam Present: CTA bilaterally - *Routine Cardiovascular Exam Present: murmur, irregular rhythm - *Routine Abdominal Exam Present: soft, normoactive bowel sounds. Absent: tenderness - *Routine Extremities Exam Present: edema. Absent: cyanosis, clubbing Comments: Improved over baseline - *Routine Skin Exam Present: warm. Absent: rash - Detailed Eye Exam Eyelids: Bilateral normal inspection Results Labs on day of discharge: Labs from last 24 hours 01/12/20 01/12/20 06:57 06:57 WBC 11.3 H D RBC 4.56 L Hgb 14.5 Hct 44.1 MCV 96.6 H MCH 31.8 H MCHC 33.0 RDW 16.1 Plt Count 170 MPV 8.5 Neut % (Auto) 83.6 H Lymph % (Auto) 10.1 [place] % (Auto) 4.6 Eos % (Auto) 1.6 Baso % (Auto) 0.2 Neut # (Auto) 9.4 H Lymph # (Auto) 1.1 [place] # (Auto) 0.5 Eos # (Auto) 0.2 Baso # (Auto) 0.0 Sodium 139 Potassium 3.6 Chloride 100 Carbon Dioxide 34 H Anion Gap 8.6 BUN 15 Creatinine 1.00 Estimated Creat Clear 118 Estimated GFR 74 Est GFR ( Amer) 89 Glucose 122 H Calcium 9.1 Preliminary micro results at discharge 01/11/20 17:19 Sputum Culture - Preliminary Sputum - Expectorated Sputum 01/11/20 02:28 Blood Culture - Preliminary Blood 01/11/20 04:05 Urine Culture - Preliminary Urine,Random NO GROWTH AFTER 24 HOURS DS: Diagnosis - Discharge Diagnosis (1) Systolic CHF with reduced left ventricular function, NYHA class 2 Status: Chronic (2) Community acquired pneumonia Status: Acute (3) Sepsis Status: Acute Discharge Plan - Patient Discharge Instructions ACTIVITY: Continue current activity DIET: continue same diet Patient Instructions: Sepsis, DI for Shortness of Breath, DI for Chest Pain, DI for Sepsis -- Adult - Follow up Plan Follow up with: Henrry Vegas MD [Primary Care Provider] - 01/22/20 11:45 am Disposition: Home, Self-Long-Term Medications: Home Medications M
== END 2020-01-12 11:55 | disposition home or self-care (01) ==
LOC: ER 03:47 → 2ND 03:58
PROVIDERS: Admitting Provider Internal Medicine Adolescent Medicine; Emergency Provider Emergency Medicine; PCP Internal Medicine Adolescent Medicine; Visit Provider Internal Medicine Adolescent Medicine
DX: J18.9 Pneumonia, unspecified organism (principal); I11.0 Hypertensive heart disease with heart failure; I50.21 Acute systolic (congestive) heart failure; Z79.01 Long term (current) use of anticoagulants; J44.9 Chronic obstructive pulmonary disease, unspecified; Z87.891 Personal history of nicotine dependence; E78.5 Hyperlipidemia, unspecified; I48.91 Unspecified atrial fibrillation; Z79.899 Other long term (current) drug therapy
CPT/HCPCS: 36415; 71046; 74177; 80048; 80053; 81001; 82962; 83605; 83690; 83880; 84484; 85007; 85025; 85610; 86328; 87040; 87070; 87077; 87086; 87186; 87205; 93005; 93306; 96365; 96375; 99285; G0378; J3370; Q9967

== ENCOUNTER → 2020-02-21 15:40 | Outpatient (CLI) | payer MEDICARE, SELFPAY ==
--- NOTE | 2020-02-21 16:03 | CA_ITS ---
APPROVED REPORT Bilateral Lower Extremity Venous Study for Finance Attorney: BING Indications Lower Extremity Pain: Left Lower Extremity Edema: Left EDEMA Vein Imaging CFV (L): compressive, spontaneous, phasic, augmentation SFJ (L): compressive, spontaneous, phasic, augmentation FEM (L): compressive, spontaneous, phasic, augmentation POP (L): compressive, spontaneous, phasic, augmentation DFV (L): compressive, spontaneous, phasic, augmentation PTV (L): compressive, spontaneous, phasic, augmentation GSV (L): Compressible Peroneals (L):Not Visualized GAS (L): Compressible Findings No evidence of DVT or superficial thrombophlebitis in the veins scanned of the left lower extremity. Reported to Ascencion's office Conclusion No evidence of DVT or superficial thrombophlebitis in the veins scanned of the left lower extremity. Reported to Ascencion's office Electronically signed by : Ilir Cartagena MD 02/21/2020 17:43:10
--- NOTE | 2020-02-21 16:18 | XR_ITS ---
PROCEDURE: XR ANKLE LT MIN 3V CLINICAL INDICATION: ACUTE LT ANKLE PAIN Left lateral ankle pain COMPARISON: No exams were available for comparison FINDINGS: Prominent soft tissue swelling is present both the lateral and medial aspect of the ankle joint. No bony fracture or dislocation. No lytic or blastic change. There is pes planus and vascular calcification noted along the lower leg dorsally. There are mild degenerative changes at the medial malleolar region. IMPRESSION: Soft tissue swelling with pes planus otherwise negative Dictated by: Ilir Cartagena MD 02/21/2020 16:37 Ilir Cartagena MD in [place] 02/21/2020 16:37
== END ==
PROVIDERS: PCP Internal Medicine Adolescent Medicine; Visit Provider Internal Medicine Adolescent Medicine
DX: M25.572 Pain in left ankle and joints of left foot (principal); R60.0 Localized edema
CPT/HCPCS: 73610; 93971

== ENCOUNTER 2020-04-25 23:42 | Observation (INO) | payer MEDICARE, SELFPAY ==
--- NOTE | 2020-04-25 23:29 | ECG_ITS ---
APPROVED REPORT Exam: Resting ECG HR:112 bpm ECG Measurements Heart Rate 112 AXES FL 222 P 26 QRSd 82 QRS 44 QT 396 T 69 QTc 540 Conclusion Sinus tachycardia with 1st degree AV block with occasional premature ventricular complexes and fusion complexes Low voltage QRS with late r wave progression Abnormal ECG Electronically signed by : Henrry Vegas, 04/28/2020 19:46:45
[2020-04-25 23:42] VITALS: BP 160/93; PULSE 91; RESP 26; TEMP 39.3; O2SAT 88; BMI 35.5
--- NOTE | 2020-04-25 23:46 | HMH.EDGENADL ---
ED Disposition Clinical Impression: Hypoxia Pneumonia Qualifiers: Pneumonia type: due to unspecified organism Laterality: unspecified laterality Lung location: unspecified part of lung Qualified Code(s): J18.9 - Pneumonia, unspecified organism Sepsis Qualifiers: Sepsis type: sepsis due to unspecified organism Sepsis acute organ dysfunction status: without acute organ dysfunction Qualified Code(s): A41.9 - Sepsis, unspecified organism Disposition: Admitted As Inpatient Condition on Discharge: Fair Referrals: PCP,No [Primary Care Provider] - - Critical Care Critical Care Time: No Attestation: On , the high probability of a clinically significant, sudden or life threatening deterioration of the following system(s) required my full and direct attention, intervention and personal management. The time I documented below is in addition to time spent performing reported procedures but includes the following listed in this critical care notation. Medical Decision Making - Medical Records Medical records reviewed: Yes: I reviewed the patient's medical records. - Carlos Inquiry Pt receiving controlled substance: No Vital Signs: 04/25/20 23:42 04/26/20 01:02 04/26/20 01:30 Temperature 102.7 F H 101.2 F H Temperature Source Oral Oral Pulse Rate [Apical] 91 H 105 H Respiratory Rate 26 H Blood Pressure [Right Arm] 160/93 H 127/79 Blood Pressure Mean [Right Arm] 115 95 Blood Pressure Source [Right Arm] Automatic Cuff Blood Pressure Position [Right Arm] Supine 02 Sat by Pulse Oximetry 88 L 95 Oxygen Delivery Method Room Air Nasal Cannula Oxygen Flow Rate (LPM) 2 04/26/20 01:45 Temperature 99.1 F Temperature Source Oral Pulse Rate [Apical] Respiratory Rate Blood Pressure [Right Arm] Blood Pressure Mean [Right Arm] Blood Pressure Source [Right Arm] Blood Pressure Position [Right Arm] 02 Sat by Pulse Oximetry Oxygen Delivery Method Oxygen Flow Rate (LPM) - Lab Data Lab Results 04/25/20 23:58: Specimen Source Right radial, O2 % 2lpm, ABG pH 7.43, ABG pCO2 33.7 L, ABG pO2 77.5 L, ABG HCO3 21.9 L, ABG Total CO2 22.9 L, ABG O2 Saturation 96, ABG Base Excess -2.4, Ilir Test Patient unable 04/26/20 00:00: WBC 17.8 H, RBC 4.97, Hgb 15.7, Hct 48.0, MCV 96.5 H, MCH 31.6 H, MCHC 32.7, RDW 16.0, Plt Count 159, MPV 9.5, Neut % (Auto) 91.6 H, Lymph % (Auto) 3.9 L, [place] % (Auto) 3.5, Eos % (Auto) 0.5, Baso % (Auto) 0.4, Neut # (Auto) 16.3 H, Lymph # (Auto) 0.7, [place] # (Auto) 0.6, Eos # (Auto) 0.1, Baso # (Auto) 0.1, Total Counted 100, Neutrophils % (Manual) 87 H, Band Neutrophils % 6.0, Lymphocytes % (Manual) 5 L, Monocytes % (Manual) 2, Platelet Estimate Normal, RBC Morphology Normal 04/26/20 00:01: Chlamy pneumoniae PCR Not detected, Adenovirus (PCR) Not detected, B. pertussis DNA (PCR) Not detected, Coronavirus OC43 (PCR) Not detected, Coronavirus HKU1 (PCR) Not detected, Coronavirus 229E (PCR) Not detected, SARS-CoV-2 (PCR) Not detected, Coronavirus NL63 (PCR) Not detected, Human Metapneumovir PCR Not detected, Influenza A (H1) PCR Not detected, Influ A (H1N1/09) PCR Not detected, Influenza A (H3) PCR Not detected, Influenza Type A (PCR) Not detected, Influenza Type B (PCR) Not detected, M. pneumoniae (PCR) Not detected, Parainfluenza 1 (PCR) Not detected, Parainfluenza 2 (PCR) Not detected, Parainfluenza 3 (PCR) Not detected, Parainfluenza 4 (PCR) Not detected, RSV (PCR) Not detected, Entero/Rhino (PCR) Not detected 04/26/20 00:25: Sodium 137, Potassium 4.0, Chloride 101, Carbon Dioxide 29, Anion Gap 11.0, BUN 16, Creatinine 1.10, Estimated Creat Clear 101, Estimated GFR 66, Est GFR ( Amer) 80, Glucose 134 H, Calcium 10.0, Total Bilirubin 0.7, Direct Bilirubin 0.3, Conjugated Bilirubin 0.0, Indirect Bilirubin 0.4, Unconjugated Bilirubin 0.3, AST 29, ALT 21, Alkaline Phosphatase 86, Troponin I 0.02, NT-Pro-B Natriuret Pep 484 H, Total Protein 7.9, Albumin 4.1, Procalcitonin 0.809 04/26/20 00:25: Lactate 1.3
--- NOTE | 2020-04-25 23:58 | XR_ITS ---
PROCEDURE: XR CHEST PORTABLE Referring Doctor: Darell Ribeiro Patient Age:70Y CLINICAL HISTORY: SOA COMPARISON: CR XR CHEST 2V from 06/12/2019 CR XR CHEST PORTABLE from 07/26/2019 CR XR CHEST 2V from 01/11/2020 FINDINGS: AP portable semi-erect chest performed today and compared to the previous studies listed above but patient does have some chronic changes as were seen January 2020 CXR these are slightly evident in the right lung with some linear densities at the right lung base reflecting atelectasis and scarring again evident. There is some mild accentuation of the vascular markings along with cardiomegaly. Findings suggest mild vascular congestion and question minor CHF. No dense area consolidation but no prominent area pneumonia radiographically However I would note slight hazy appearance at the right infrahilar region. Of-would only question possible study infiltrate here but requires correlation clinically.. Follow-up suggested if respiratory symptoms progress . No pneumothorax but no definite pleural effusion. Chest wall unremarkable. IMPRESSION: Mild cardiomegaly. Mild vascular congestion suspect possible minor CHF superimposed upon mild chronic changes . I suspect this slightly accentuates markings bilaterally Also would question and could not exclude additional minimal subtle hazy infiltrate right infrahilar region..-Follow-up PA and lateral chest suggested, particularly if respiratory symptoms progress Dictated by: Maciel Gaming MD 04/26/2020 17:18 Maciel Gaming MD in [place] 04/26/2020 17:18
[2020-04-26] VITALS (12 sets, daily range): BP systolic 124–161; BP diastolic 75–95; PULSE 50–105; RESP 19–26; TEMP 36.6–38.4; O2SAT 93–97
[2020-04-26 00:13] LABS: Adenovirus,PCR Not Detected (NotDetected); Bordetella Pertussis Not Detected (NotDetected); Chlamydophila Pneumoniae, PCR Not Detected (NotDetected); Coronavirus 19, PCR Not Detected (NotDetected); Coronavirus 229E Not Detected (NotDetected); Coronavirus NL63 Not Detected (NotDetected); Coronavirus OC43 Not Detected (NotDetected); Coronovirus HKU1,PCR Not Detected (NotDetected); Human Metapneumovirus Not Detected (NotDetected); Influenza A, PCR Not Detected (NotDetected); Influenza AH1, 2009 Not Detected (NotDetected); Influenza AH1, PCR Not Detected (NotDetected); Influenza AH3,PCR Not Detected (NotDetected); Influenza B, PCR Not Detected (NotDetected); Mycoplasma Pneumoniae, PCR Not Detected (NotDetected); Parainfluenza 1, PCR Not Detected (NotDetected); Parainfluenza 2, PCR Not Detected (NotDetected); Parainfluenza 3, PCR Not Detected (NotDetected); Parainfluenza 4, PCR Not Detected (NotDetected); Respiratory Syncytial Virus Not Detected (NotDetected); Rhinovirus/Enterovirus Not Detected (NotDetected)
[2020-04-26 00:16] LABS: ABG Base Excess -2.4 mmol/L (-2.4-2.3); ABG HCO3 21.9 mmhg (22.0-26.0); ABG Oxygen Saturation 96 % (90-100); ABG PCO2 33.7 mmhg (35.0-45.0); ABG PH 7.43 mmol/L (7.35-7.45); ABG PO2 77.5 mmhg (80-100); ABG TCO2 22.9 mmhg (23-27)
[2020-04-26 00:21] LABS: Allen's Test Patient Unable; Source Right Radial
--- NOTE | 2020-04-26 00:35 | PC.NURSE ---
Consulted Michael from Pharmacy regarding Vanc dose. Suggests 2000mg/Q24H.
[2020-04-26 00:37] LABS: Basophils # 0.1 K/mm3 (0-0.2); Basophils % 0.4 % (0.1-2.0); Eosinophils # 0.1 K/mm3 (0.0-0.4); Eosinophils % 0.5 % (0.1-12.0); Hemoglobin 15.7 g/dL (14.1-18.0); Lymphocytes # 0.7 K/mm3 (0.7-4.5); Lymphocytes % 3.9 % (10-50); Mean Corpuscular HGB Conc 32.7 g/dL (31.8-35.4); Mean Corpuscular Hemoglobin 31.6 pg (27.0-31.2); Mean Corpuscular Volume 96.5 fl (80-94); Mean Platelet Volume 9.5 fl (7.4-10.4); Monocytes # 0.6 K/mm3 (0.1-1.0); Monocytes % 3.5 % (1.7-9.3); Neutrophils # 16.3 K/mm3 (1.8-7.8); Neutrophils % 91.6 % (37.0-80.0); Platelet Count 159 K/mm3 (142-424); Red Blood Count 4.97 M/mm3 (4.60-6.20); White Blood Count 17.8 K/mm3 (4.8-10.8)
[2020-04-26 00:41] LABS: MANUAL DIFFERENTIAL MANUAL DIFFERENTIAL (MANUAL DIFF)
[2020-04-26 00:42] LABS: Chloride 101 mmol/L (98-107); Sodium 137 mmol/L (136-145)
[2020-04-26 00:44] LABS: Bilirubin,Unconjugated 0.3 mg/dL (0.0-1.1); Blood Urea Nitrogen 16 mg/dl (9-20); Creatinine Clearance Estimated 101 mL/min (50-200); Estimated Glomerular Filt Rate 66 ml/min (>60); GFR (African American) 80 ML/MIN (>60); Lactic Acid 1.3 mmol/L (0.7-2.1)
[2020-04-26 00:45] LABS: Alanine Aminotransferase 21 U/L (12-78); Albumin Level 4.1 g/dl (3.5-5.0); Alkaline Phosphatase 86 U/L (38-126); Aspartate Amino Transferase 29 U/L (17-59); Bilirubin,Direct 0.3 mg/dl (0.0-0.4); Bilirubin,Indirect 0.4 mg/dL (0.0-0.9); Bilirubin,Total 0.7 mg/dl (0.2-1.3); Carbon Dioxide 29 mmol/L (22.0-30.0); Glucose 134 mg/dl (74-100); Total Protein,Serum 7.9 g/dl (6.3-8.2)
[2020-04-26 00:53] LABS: Lymphocytes % 5 % (10-50); Monocytes % 2 % (2-9); Neutrophils % 87 % (42-76); Platelet Estimate Normal; RBC Morphology Normal; Total Cells Counted 100
[2020-04-26 00:54] LABS: NT Pro Brain Natriuretic Pep. 484 pg/mL (0-125)
[2020-04-26 00:58] LABS: Troponin I 0.02 ng/ml (0.00-0.034)
[2020-04-26 01:02] LABS: Procalcitonin 0.809 ng/mL (0.0-2.0)
--- NOTE | 2020-04-26 01:39 | PC.NURSE ---
speaking with regarding admission
--- NOTE | 2020-04-26 03:05 | PC.NURSE ---
PT ARRIVED TO THE FLOOR VIA STRETCHER FROM ED W/STAFF AT 0305.
[2020-04-26 03:43] LABS: Troponin I 0.03 ng/ml (0.00-0.034)
--- NOTE | 2020-04-26 04:13 | PC.NURSE ---
Med-Rec incomplete at this time. Pt is unsure what medications he takes. Pt's states she will bring home medications in the AM.
[2020-04-26 07:07] LABS: Basophils # 0.1 K/mm3 (0-0.2); Basophils % 0.5 % (0.1-2.0); Eosinophils # 0.1 K/mm3 (0.0-0.4); Eosinophils % 0.4 % (0.1-12.0); Hematocrit 45.1 % (42.0-52.0); Hemoglobin 14.6 g/dL (14.1-18.0); Lymphocytes # 0.8 K/mm3 (0.7-4.5); Lymphocytes % 5.1 % (10-50); Mean Corpuscular HGB Conc 32.4 g/dL (31.8-35.4); Mean Corpuscular Hemoglobin 31.6 pg (27.0-31.2); Mean Corpuscular Volume 97.3 fl (80-94); Monocytes # 0.8 K/mm3 (0.1-1.0); Monocytes % 4.8 % (1.7-9.3); Neutrophils # 14.5 K/mm3 (1.8-7.8); Neutrophils % 89.2 % (37.0-80.0); Platelet Count 129 K/mm3 (142-424); Red Blood Count 4.64 M/mm3 (4.60-6.20); Red Cell Distribution Width 16.1 % (11.5-17.5); White Blood Count 16.3 K/mm3 (4.8-10.8)
[2020-04-26 07:20] LABS: Anion Gap 11.7 mEq/L (5-15); Blood Urea Nitrogen 18 mg/dl (9-20); Calcium 9.7 mg/dl (8.4-10.2); Carbon Dioxide 27 mmol/L (22.0-30.0); Chloride 103 mmol/L (98-107); Creatinine Clearance Estimated 101 mL/min (50-200); Estimated Glomerular Filt Rate 66 ml/min (>60); GFR (African American) 80 ML/MIN (>60); Glucose 126 mg/dl (74-100); Potassium 3.7 mmoL/L (3.5-5.1); Sodium 138 mmol/L (136-145)
--- NOTE | 2020-04-26 07:29 | HMH.HP ---
*Admission Date: 04/26/20 *Chief complaint: SOA, Fever *History of present illness: Mr. Phillips is a 70-year-old -Iranian male with multiple comorbidities including CHF, COPD, obesity presenting with weakness and shortness of breath. On presentation to the ER he stated he felt bad for the past 2 to 3 days and has had worsening weakness during the day and shortness of breath compared to baseline but also with laying down. Per ER documentation, at time of presentation the patient's stated he had difficulty getting around as he has been more fatigued and did have some fast breathing last night which prompted her to call EMS. She states his episode was similar to previous admission in January for pneumonia. Ports being compliant with medications. Denied fever, chest pain, nausea or vomiting at home. In the ER patient was febrile, chest x-ray concerning for airspace disease. Also noted to have slight elevation of BNP. On exam after getting to the floor this morning, patient has some trace edema in his lower legs and minimal crackles bilaterally. Stable on 2 L nasal cannula oxygen. [facility] History I have reviewed the patient's past medical history: Yes Medical History: Reports:: Atrial Fibrillation, Congestive Heart Failure, Chronic Obstructive Pulmonary Disease (COPD), Hyperlipidemia, Hypertension, Palpitations Denies:: Cancer, Diabetes Mellitus Type 1, Diabetes Mellitus Type 2, Home Oxygen, Internal Pacemaker, MRSA, Seizures *Have you ever received a pneumonia vaccine?: No *Have you received a flu vaccine this season?: Yes Other Medical History: Reports: Arthritis Laterality Cases: Bilateral: Other Other Surgeries: Yes: No Previous Surgery, Appendectomy, Colonoscopy, Hernia Repair, Other. No: Pacemaker Amputation: No Fractures: No - *Social History Smoking Status: Former smoker Tobacco Type: cigarettes # Packs/Day (cigarettes): 1 #Yrs smoked (if former smoker): 39 Smoking End Date: 2010 Alcohol Intake: never *Occupational Status:: retired Housing: house Household Members: spouse *Travel in the last 8 weeks: None Family Hx:: Hyperlipidemia, Hypertension Review of Systems - Review of Systems Review of systems:: pertinent systems reviewed and negative unless documented below (14 point review of systems performed, pertinent positives and negatives as per HPI) Meds Home Medications Medication Instructions Recorded Confirmed Type Hydralazine HCl [Hydralazine HCl 25 mg PO TID 12/20/17 04/26/20 History 25mg Tablet] Apixaban [Eliquis] 2.5 mg PO BID 02/17/18 04/26/20 History Flecainide Acetate [Tambocor 50mg 50 mg PO BID 06/13/19 04/26/20 History tablet] Loratadine [Allergy] 10 mg PO DAILY 06/13/19 04/26/20 History Tamsulosin HCl 0.8 mg PO DAILY 06/13/19 04/26/20 History allopurinoL [Allopurinol 300mg 300 mg PO DAILY 06/13/19 04/26/20 History tablet] Finasteride [Proscar] 5 mg PO DAILY 01/11/20 04/26/20 History Lidocaine [Lidoderm 5% transdermal 1 patch TOPICAL DAILY 01/11/20 04/26/20 History patch] Multivitamin with Minerals [One 1 each PO DAILY 01/11/20 04/26/20 History Daily Complete] bisoproloL fumarate [Bisoprolol 5 mg PO DAILY 01/11/20 04/26/20 History Fumarate] dilTIAZem HCl [Diltiazem 180mg 180 mg PO DAILY 01/11/20 04/26/20 History 24Hr ER Cap] Sacubitril/Valsartan [Entresto 24 1 each PO BID 04/26/20 04/26/20 History mg-26 mg Tablet] Umeclidinium Brm/Vilanterol Tr 1 inh IH DAILY 04/26/20 04/26/20 History [Anoro Ellipta 62.5-25 Mcg INH] Allergies Allergy/AdvReac Type Severity Reaction Status Date / Time Penicillins Allergy Verified 04/26/20 03:38 Exam Vital signs and Labs for Last 24 Hours: Temp Pulse Resp BP Pulse Ox 98.4 F 94 H 26 H 139/76 97 04/26/20 03:28 04/26/20 04:07 04/26/20 04:07 04/26/20 03:28 04/26/20 04:07 Laboratory Results - last 24 hr 04/25/20 23:58: Specimen Source Right radial, O2 % 2lpm, ABG pH 7.43, ABG pCO2 33.7 L, ABG pO2 77.
[2020-04-26 07:31] LABS: Troponin I 0.03 ng/ml (0.00-0.034)
--- NOTE | 2020-04-26 08:46 | HMH.PHACONS ---
- Pharmacy Consult Date: 04/26/20 Time: 08:46 Referring provider: DR. FOSTER Reason for Consult:: VANCOMYCIN DOSING Allergies and ADEs:: Allergies Allergy/AdvReac Type Severity Reaction Status Date / Time Penicillins Allergy Verified 04/26/20 03:38 Home Medications:: Home Medications Medication Instructions Recorded Confirmed Type Hydralazine HCl [Hydralazine HCl 25 mg PO TID 12/20/17 04/26/20 History 25mg Tablet] Apixaban [Eliquis] 2.5 mg PO BID 02/17/18 04/26/20 History Flecainide Acetate [Tambocor 50mg 50 mg PO BID 06/13/19 04/26/20 History tablet] Loratadine [Allergy] 10 mg PO DAILY 06/13/19 04/26/20 History Tamsulosin HCl 0.8 mg PO DAILY 06/13/19 04/26/20 History allopurinoL [Allopurinol 300mg 300 mg PO DAILY 06/13/19 04/26/20 History tablet] Finasteride [Proscar] 5 mg PO DAILY 01/11/20 04/26/20 History Lidocaine [Lidoderm 5% transdermal 1 patch TOPICAL DAILY 01/11/20 04/26/20 History patch] Multivitamin with Minerals [One 1 each PO DAILY 01/11/20 04/26/20 History Daily Complete] bisoproloL fumarate [Bisoprolol 5 mg PO DAILY 01/11/20 04/26/20 History Fumarate] dilTIAZem HCl [Diltiazem 180mg 180 mg PO DAILY 01/11/20 04/26/20 History 24Hr ER Cap] Sacubitril/Valsartan [Entresto 24 1 each PO BID 04/26/20 04/26/20 History mg-26 mg Tablet] Umeclidinium Brm/Vilanterol Tr 1 inh IH DAILY 04/26/20 04/26/20 History [Anoro Ellipta 62.5-25 Mcg INH] Height: 1.8 m Weight: 115.666 kg Laboratory Results:: Laboratory Results - last 24 hr 04/25/20 23:58: Specimen Source Right radial, O2 % 2lpm, ABG pH 7.43, ABG pCO2 33.7 L, ABG pO2 77.5 L, ABG HCO3 21.9 L, ABG Total CO2 22.9 L, ABG O2 Saturation 96, ABG Base Excess -2.4, Ilir Test Patient unable 04/26/20 00:00: WBC 17.8 H, RBC 4.97, Hgb 15.7, Hct 48.0, MCV 96.5 H, MCH 31.6 H, MCHC 32.7, RDW 16.0, Plt Count 159, MPV 9.5, Neut % (Auto) 91.6 H, Lymph % (Auto) 3.9 L, [place] % (Auto) 3.5, Eos % (Auto) 0.5, Baso % (Auto) 0.4, Neut # (Auto) 16.3 H, Lymph # (Auto) 0.7, [place] # (Auto) 0.6, Eos # (Auto) 0.1, Baso # (Auto) 0.1, Total Counted 100, Neutrophils % (Manual) 87 H, Band Neutrophils % 6.0, Lymphocytes % (Manual) 5 L, Monocytes % (Manual) 2, Platelet Estimate Normal, RBC Morphology Normal 04/26/20 00:01: Chlamy pneumoniae PCR Not detected, Adenovirus (PCR) Not detected, B. pertussis DNA (PCR) Not detected, Coronavirus OC43 (PCR) Not detected, Coronavirus HKU1 (PCR) Not detected, Coronavirus 229E (PCR) Not detected, SARS-CoV-2 (PCR) Not detected, Coronavirus NL63 (PCR) Not detected, Human Metapneumovir PCR Not detected, Influenza A (H1) PCR Not detected, Influ A (H1N1/09) PCR Not detected, Influenza A (H3) PCR Not detected, Influenza Type A (PCR) Not detected, Influenza Type B (PCR) Not detected, M. pneumoniae (PCR) Not detected, Parainfluenza 1 (PCR) Not detected, Parainfluenza 2 (PCR) Not detected, Parainfluenza 3 (PCR) Not detected, Parainfluenza 4 (PCR) Not detected, RSV (PCR) Not detected, Entero/Rhino (PCR) Not detected 04/26/20 00:25: Sodium 137, Potassium 4.0, Chloride 101, Carbon Dioxide 29, Anion Gap 11.0, BUN 16, Creatinine 1.10, Estimated Creat Clear 101, Estimated GFR 66, Est GFR ( Amer) 80, Glucose 134 H, Calcium 10.0, Total Bilirubin 0.7, Direct Bilirubin 0.3, Conjugated Bilirubin 0.0, Indirect Bilirubin 0.4, Unconjugated Bilirubin 0.3, AST 29, ALT 21, Alkaline Phosphatase 86, Troponin I 0.02, NT-Pro-B Natriuret Pep 484 H, Total Protein 7.9, Albumin 4.1, Procalcitonin 0.809 04/26/20 00:25: Lactate 1.3 04/26/20 03:10: Troponin I 0.03 04/26/20 06:00: WBC 16.3 H, RBC 4.64, Hgb 14.6, Hct 45.1, MCV 97.3 H, MCH 31.6 H, MCHC 32.4, RDW 16.1, Plt Count 129 L, MPV 10.0, Neut % (Auto) 89.2 H, Lymph % (Auto) 5.1 L, [place] % (Auto) 4.8, Eos % (Auto) 0.4, Baso % (Auto) 0.5, Neut # (Auto) 14.5 H, Lymph # (Auto) 0.8, [place] # (Auto) 0.8, Eos # (Auto) 0.1, Baso # (Auto) 0.1 04/26/20 06:00: Sodium 138, Potassium 3.7, Chloride 103, Carbon Dioxide 27, Anion Gap 11.7, BUN
--- NOTE | 2020-04-26 12:46 | HMH.PHAVTE ---
[facility] Pharmacy VTE Monitoring - Patient Demographics Admission date: 04/26/20 Report Date: 04/26/20 Time: 12:46 Allergies/Adverse Reactions: Patient Allergies Penicillins Allergy (Verified 04/26/20 03:38) Height: 1.8 m Weight: 115.666 kg Patient Problems: Current Active Problems Sepsis (Acute) Community acquired pneumonia (Acute) Systolic CHF with reduced left ventricular function, NYHA class 2 (Chronic) Pneumonia (Acute) Hypoxia (Acute) Obesity (BMI 30-39.9) (Acute) - VTE Risk Labs: VTE Related Lab Results Hgb 14.6 g/dL (14.1-18.0) 04/26/20 06:00 Hct 45.1 % (42.0-52.0) 04/26/20 06:00 Plt Count 129 K/mm3 (142-424) L 04/26/20 06:00 BUN 18 mg/dl (9-20) 04/26/20 06:00 Creatinine 1.10 mg/dl (0.66-1.25) 04/26/20 06:00 Estimated Creat Clear 101 mL/min (50-200) 04/26/20 06:00 Was VTE Risk Assessment Performed: Yes VTE Score: 6 VTE Risk Level: Moderate Risk - Prophylaxis VTE Prophylaxis Ordered?: Yes Types of VTE Prophylaxis: Pharmacological Pharmacologic Type: Other (ELIQUIS)
--- NOTE | 2020-04-26 14:42 | PC.NURSE ---
gave pt cup and intrusced pt to place any sputum produced in cup and call out.
--- NOTE | 2020-04-26 20:05 | PC.NURSE ---
Pt alert and oriented x 4 and able to make needs known. RR even and unlabored. Has had intermittent audible wheezing. Denies soa at this time. Continues on 2 L. VSS. NAD. Has voided per urinal. SR tele. BS x 4. No c/o currently. CB in reach.
[2020-04-27] VITALS: BP 117/59; PULSE 60; PULSE 72; RESP 18; TEMP 36.6; O2SAT 94
[2020-04-27 04:00] VITALS: BP 113/66; PULSE 60; PULSE 62; RESP 18; TEMP 36.6; O2SAT 98
--- NOTE | 2020-04-27 04:41 | PC.NURSE ---
Addendum entered by Cristiana Triana RN 04/27/20 04:42: telemetry is in place and reads 1st degree block w/ pvc's Original Note: no acute changes. remains on 2LNC. iv patent and SL. pt assist x1 to BSC. alert and oriented. no c/o of pain or discomfort. vss. call light in reach. will continue to monitor
[2020-04-27 05:00] VITALS: BMI 35.9
[2020-04-27 08:00] VITALS: BP 118/73; PULSE 60; PULSE 63; RESP 18; TEMP 36.9; O2SAT 95
--- NOTE | 2020-04-27 08:51 | HMH.DCSUM ---
General - General Admission date:: 04/26/20 Discharge date: 04/27/20 HPI HPI: Mr. Phillips is a 70-year-old -[place] male with multiple comorbidities including CHF, COPD, obesity presenting with weakness and shortness of breath. On presentation to the ER he stated he felt bad for the past 2 to 3 days and has had worsening weakness during the day and shortness of breath compared to baseline but also with laying down. Per ER documentation, at time of presentation the patient's stated he had difficulty getting around as he has been more fatigued and did have some fast breathing last night which prompted her to call EMS. She states his episode was similar to previous admission in January for pneumonia. Ports being compliant with medications. Denied fever, chest pain, nausea or vomiting at home. In the ER patient was febrile, chest x-ray concerning for airspace disease. Also noted to have slight elevation of BNP. On exam after getting to the floor this morning, patient has some trace edema in his lower legs and minimal crackles bilaterally. Stable on 2 L nasal cannula oxygen. Hospital Course Hospital Course: Mr. Phillips is a 70yo M admitted for sepsis in the setting of CHF exacerbation concurrent with early pneumonia. Responded well to initiation of antibiotics and some diuresis. Breathing more comfortably today. Meeting criteria for discharge home. Plan for close follow-up in the outpatient setting to assess cardiac medications. 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 Denies chest pain, nausea, vomiting, confusion. Medically stable for discharge home. Of note, continues to have slight oxygen requirement that is stable. Will send home with home oxygen. Follow-up appointment scheduled for Tuesday in our office in [place]. Objective Vital signs: Temp Pulse Resp BP Pulse Ox 98.5 F 63 18 118/73 95 04/27/20 08:00 04/27/20 08:00 04/27/20 08:00 04/27/20 08:00 04/27/20 08:00 Narrative: - Constitutional no acute distress, obese - *Routine HEENT Exam Head: Present: normocephalic Eye: Present: EOMI, PERRL ENT: Present: mucous membranes moist - *Routine Neck Exam Present: supple. Absent: lymphadenopathy - *Routine Respiratory Exam Present: intervally improved bibasilar crackles. Absent: rhonchi, wheezes Comments: Fair air movement bilaterally - *Routine Cardiovascular Exam Present: RRR - *Routine Abdominal Exam Present: soft, normoactive bowel sounds. Absent: tenderness - *Routine Extremities Exam Present: edema (1+). Absent: cyanosis, clubbing - *Routine Skin Exam Present: warm. Absent: rash - *Routine Neurological Exam Present: alert, oriented X3 DS: Diagnosis - Discharge Diagnosis (1) Sepsis Status: Resolved (2) Community acquired pneumonia Status: Acute (3) Obesity (BMI 30-39.9) Status: Chronic (4) Systolic CHF with reduced left ventricular function, NYHA class 2 Status: Chronic Discharge Plan - Patient Discharge Instructions ACTIVITY: Continue current activity DIET: continue same diet Patient Instructions: Pneumonia-Adult, Sepsis, DI for Pneumonia -- Adult, DI for Sepsis -- Adult, DI for Hypoxia - Follow up Plan Follow up with: Henrry Vegas MD [Staff Physician] - (appt scheduled for 2:30 on Saturday 04/29 with [facility] in [place].) Disposition: Home, Self-Senior Living Medications: Home Medications Medication Instructions Recorded Confirmed Type Hydralazine HCl [Hydralazine HCl 25 mg PO TID 12/20/17 04/26/20 History 25mg Tablet] Flecainide Acetate [Tambocor 50mg 50 mg PO BID 06/13/19 04/26/20 History tablet] Loratadine [Allergy] 10 mg PO DAILY 06/13/19 04/26/20 Hist
[2020-04-27 09:43] LABS: Basophils % 0.4 % (0.1-2.0); Eosinophils # 0.3 K/mm3 (0.0-0.4); Eosinophils % 2.9 % (0.1-12.0); Hemoglobin 14.4 g/dL (14.1-18.0); Lymphocytes # 1.3 K/mm3 (0.7-4.5); Lymphocytes % 13.2 % (10-50); Mean Corpuscular HGB Conc 33.5 g/dL (31.8-35.4); Mean Corpuscular Hemoglobin 31.8 pg (27.0-31.2); Mean Corpuscular Volume 95.1 fl (80-94); Mean Platelet Volume 9.2 fl (7.4-10.4); Monocytes # 0.5 K/mm3 (0.1-1.0); Monocytes % 5.2 % (1.7-9.3); Neutrophils # 7.7 K/mm3 (1.8-7.8); Neutrophils % 78.4 % (37.0-80.0); Platelet Count 136 K/mm3 (142-424); Red Blood Count 4.53 M/mm3 (4.60-6.20); Red Cell Distribution Width 16.2 % (11.5-17.5); White Blood Count 9.9 K/mm3 (4.8-10.8)
[2020-04-27 09:59] LABS: Anion Gap 11.5 mEq/L (5-15); Blood Urea Nitrogen 21 mg/dl (9-20); Calcium 9.6 mg/dl (8.4-10.2); Carbon Dioxide 23 mmol/L (22.0-30.0); Chloride 105 mmol/L (98-107); Creatinine Clearance Estimated 74 mL/min (50-200); Estimated Glomerular Filt Rate 46 ml/min (>60); GFR (African American) 56 ML/MIN (>60); Glucose 121 mg/dl (74-100); Potassium 4.5 mmoL/L (3.5-5.1); Sodium 135 mmol/L (136-145)
[2020-04-27 11:20] VITALS: BP 120/78; PULSE 65; RESP 18; TEMP 36.8; O2SAT 94
[2020-04-27 12:00] VITALS: PULSE 50
--- NOTE | 2020-04-28 15:32 | SW/DCPLANNER ---
PATIENT DISCHARGED OVER THE WEEKEND AND WAS SET UP WITH HOME 02... I DID A FOLLOW UP AND SENT ORDERS....
== END 2020-04-27 14:18 | disposition home or self-care (01) ==
LOC: ER 04-26 01:48 → 2ND 04-26 02:27
PROVIDERS: Internal Medicine Adolescent Medicine; Admitting Provider Emergency Medicine; Emergency Provider Emergency Medicine; Visit Provider Internal Medicine Adolescent Medicine
DX: J18.9 Pneumonia, unspecified organism (principal); J96.01 Acute respiratory failure with hypoxia; J44.9 Chronic obstructive pulmonary disease, unspecified; I48.91 Unspecified atrial fibrillation; E78.5 Hyperlipidemia, unspecified; Z79.01 Long term (current) use of anticoagulants; Z79.899 Other long term (current) drug therapy; Z87.891 Personal history of nicotine dependence; A41.9 Sepsis, unspecified organism; I50.21 Acute systolic (congestive) heart failure; I11.0 Hypertensive heart disease with heart failure; M19.90 Unspecified osteoarthritis, unspecified site
CPT/HCPCS: 36415; 71045; 80048; 80076; 82803; 83605; 83880; 84145; 84484; 85007; 85025; 87040; 87581; 87633; 87798; 93005; 96365; 96367; 96375; 99284; G0378; J3370

== ENCOUNTER 2020-07-13 16:17 | Observation (INO) | payer MEDICARE, SELFPAY ==
[2020-07-13] VITALS (11 sets, daily range): BP systolic 128–159; BP diastolic 71–117; PULSE 60–91; RESP 18; TEMP 36.8; O2SAT 95–98; BMI 85.3
--- NOTE | 2020-07-13 16:20 | HMH.EDGENADL ---
ED Disposition Clinical Impression: Lethargy, Dehydration, Renal lesion Hematuria Qualifiers: Hematuria type: unspecified type Qualified Code(s): R31.9 - Hematuria, unspecified Disposition: Admitted as Observation Condition on Discharge: Fair Referrals: Henrry Vegas MD [Primary Care Provider] - - Critical Care Critical Care Time: No Attestation: On , the high probability of a clinically significant, sudden or life threatening deterioration of the following system(s) required my full and direct attention, intervention and personal management. The time I documented below is in addition to time spent performing reported procedures but includes the following listed in this critical care notation. Medical Decision Making - Carlos Inquiry Pt receiving controlled substance: No Vital Signs: 07/13/20 16:18 07/13/20 16:32 07/13/20 18:19 Temperature 98.3 F Temperature Source Oral Pulse Rate 84 86 Pulse Rate [Right] 87 Respiratory Rate 18 18 Blood Pressure 145/71 H 136/89 Blood Pressure [Right Arm] 145/81 H Blood Pressure Mean 104 Blood Pressure Mean [Right Arm] 102 02 Sat by Pulse Oximetry 97 98 - Lab Data Lab Results 07/13/20 17:01: Specimen Source R/r, O2 % 2, ABG pH 7.39, ABG pCO2 37.5, ABG pO2 89.9, ABG HCO3 22.0, ABG Total CO2 23.2, ABG O2 Saturation 97, ABG Base Excess -3.0 L, Ilir Test Y 07/13/20 17:20: Urine Color Dk yellow, Urine Appearance Clear, Urine pH 6.0, Ur Specific Anton >= 1.030, Urine Protein 2+, Urine Glucose (UA) Negative, Urine Ketones Trace, Urine Blood 2+, Urine Nitrate Negative, Urine Bilirubin Negative, Urine Urobilinogen 1.0, Ur Leukocyte Esterase Negative, Urine RBC 50-100, Ur Squamous Epith Cells 3-5 07/13/20 17:20: Urine Opiates Screen Negative, Urine Methadone Screen Negative, Ur Barbituates Screen Negative, Ur Phencyclidine Scrn Negative, Ur Amphetamines Screen Negative, U Benzodiazepines Scrn Negative, Urine Cocaine Screen Negative, U Marijuana (THC) Screen Negative 07/13/20 18:10: WBC 12.9 H, RBC 4.39 L, Hgb 13.8 L, Hct 43.1, MCV 98.2 H, MCH 31.5 H, MCHC 32.0, RDW 14.7, Plt Count 152, MPV 8.5, Neut % (Auto) 92.0 H, Lymph % (Auto) 4.3 L, [place] % (Auto) 2.6, Eos % (Auto) 1.0, Baso % (Auto) 0.1, Neut # (Auto) 11.9 H, Lymph # (Auto) 0.6 L, [place] # (Auto) 0.3, Eos # (Auto) 0.1, Baso # (Auto) 0.0, Total Counted 100, Neutrophils % (Manual) 84 H, Band Neutrophils % 4.0, Lymphocytes % (Manual) 6 L, Monocytes % (Manual) 6, Platelet Estimate Normal, RBC Morphology Normal 07/13/20 18:10: Sodium 138, Potassium 4.0, Chloride 107, Carbon Dioxide 28, Anion Gap 7.0, BUN 18, Creatinine 1.10, Estimated Creat Clear 64, Estimated GFR 66, Est GFR ( Amer) 80, Glucose 121 H, Calcium 9.8, Total Bilirubin 0.7, AST 36, ALT 19, Alkaline Phosphatase 72, Total Protein 7.1, Albumin 3.9, Globulin 3.2, Albumin/Globulin Ratio 1.2 07/13/20 18:10: Plasma/Serum Alcohol < 10 Result diagrams: 07/13/20 18:10 07/13/20 18:10 Orders (Tests/Meds): ED MEDICATIONS Generic Name Dose Route Start Last Admin Trade Name Freq PRN Reason Stop Dose Admin Sodium Chloride 1,000 mls @ 75 mls/hr 07/13/20 19:30 07/13/20 20:47 Sod Chlor 0.9% 1000ml Bag IV 08/12/20 19:29 75 mls/hr .[id number] CHARLINE Administration ORDERS Category Date Time Status CT abdomen pelvis wo con Stat Cat Scan 07/13/20 18:[address] head/brain wo con Stat Cat Scan 07/13/20 16:32 Taken XR chest portable Stat Exams 07/13/20 16:31 Taken Covid-19 Nasal PCR ([facility]) Routine Lab 07/13/20 20:42 Received ABG [Arterial Blood Gas] Stat RT 07/13/20 16:32 Ordered - Radiology Data #1 Image(s): Chest Image Reviewed: Yes I reviewed the patient's radiology image Bandlike atelectasis right base. Eventration of right diaphragm. - CT Data CT Scan: Head, Abdomen, Pelvis Time Received: 19:01 ([facility] fax) ED CT Reviewed: Yes: I have viewed the radiologist's interpretation Findings Narrative: Head: No evidence of acute i
--- NOTE | 2020-07-13 16:31 | ECG_ITS ---
APPROVED REPORT Exam: Resting ECG HR:78 bpm ECG Measurements Heart Rate 78 AXES MA 284 P 63 QRSd 86 QRS -21 QT 336 T 38 QTc 383 Conclusion Sinus rhythm with 1st degree AV block with occasional premature ventricular complexes Low voltage QRS with late R wave progression as previously noted Abnormal ECG Electronically signed by : Henrry Vegas, 07/15/2020 15:14:13
--- NOTE | 2020-07-13 16:31 | XR_ITS ---
PROCEDURE: XR CHEST PORTABLE CLINICAL HISTORY: AMS Altered mental status, altered level of consciousness, confusion, disorientation COMPARISON: CR XR CHEST PORTABLE from 07/26/2019 CR XR CHEST 2V from 01/11/2020 CR XR CHEST PORTABLE from 04/26/[address] ABDOMEN PELVIS WO CON from 07/13/2020 FINDINGS: The cardiomediastinal silhouette and pulmonary vascularity are within normal limits. Atelectatic changes are present in the right lung base. There is mild eventration of the right hemidiaphragm. Pleural thickening noted along the left lower hemithorax laterally. No acute bony abnormalities. IMPRESSION: Mild right basilar atelectatic or fibrotic change. With mild pleural thickening along the left lower hemithorax laterally Dictated by: Ilir Cartagena MD 07/14/2020 05:05 Ilir Cartagena MD in [facility] 07/14/2020 05:05
--- NOTE | 2020-07-13 16:32 | CT_ITS ---
PROCEDURE: CT HEAD/BRAIN WO CON CLINICAL INDICATION: AMS Altered mental status, altered level of consciousness, confusion, disorientation TECHNIQUE: Axial images obtained. All CT scans at the facility use one or more dose reduction, viz: automated exposure control, ma/kV adjustment per patient size (including targeted exams where dose is matched to indication, i.e. head), or iterative reconstruction technique. FINDINGS: No midline shift, mass effect, intracranial hemorrhage, hydrocephalus, or extra-axial fluid collection is evident. There is generalized atrophy with hypoattenuation of the periventricular white matter consistent with microangiopathic changes. The calvarium has an unremarkable appearance. No mastoid effusion. No sinus air-fluid level. IMPRESSION: No acute intracranial finding Dictated by: Ilir Cartagena MD 07/14/2020 07:07 Ilir Cartagena MD in [facility] 07/14/2020 07:07
[2020-07-13 17:02] LABS: ABG Oxygen Saturation 97 % (90-100); ABG PCO2 37.5 mmhg (35.0-45.0); ABG PH 7.39 mmol/L (7.35-7.45); ABG PO2 89.9 mmhg (80-100); ABG TCO2 23.2 mmhg (23-27)
[2020-07-13 17:03] LABS: Allen's Test Y; Oxygen 2 %; Source R/R
--- NOTE | 2020-07-13 17:24 | PC.NURSE ---
LAB AGREED TO ATTEMPT TO OBTAIN LAB WORK FROM PATIENT
[2020-07-13 17:25] LABS: Microscopic, Urine URINE MICROSCOPIC (MICROSCOPIC)
[2020-07-13 17:29] LABS: Appearance,Urine CLEAR (Clear); Bilirubin,Urine Negative (Negative); Blood, Urine 2+ (Negative); Color,Urine DK YELLOW (Yellow); Glucose,Urine (UA) Negative (Negative); Ketones,Urine TRACE (Negative); Leukocyte Esterase,Urine Negative (Negative); Nitrate,Urine Negative (Negative); Protein,Urine 2+ (Negative); Specific Gravity, Urine >= 1.030 (1.005-1.030)
[2020-07-13 17:34] LABS: RBC,Urine 50-100 #/hpf (0-3)
[2020-07-13 17:41] LABS: Barbiturates Screen,Urine Negative ng/ml (<200); Benzodiazepines Screen,Urine Negative ng/ml (<200)
[2020-07-13 17:42] LABS: Amphetamine/Metha Screen,Urine Negative ng/ml (<1000)
[2020-07-13 17:43] LABS: Cannabinoid Screen,Urine Negative ng/ml (<50); Cocaine Screen,Urine Negative ng/ml (<300)
[2020-07-13 17:44] LABS: Methadone Screen,Urine Negative ng/ml (<300)
[2020-07-13 17:45] LABS: Opiate Screen,Urine Negative ng/ml (<300); Phencyclidine Screen,Urine Negative ng/ml (<25)
[2020-07-13 18:16] LABS: Basophils % 0.1 % (0.1-2.0); Eosinophils # 0.1 K/mm3 (0.0-0.4); Hematocrit 43.1 % (42.0-52.0); Hemoglobin 13.8 g/dL (14.1-18.0); Lymphocytes # 0.6 K/mm3 (0.7-4.5); Lymphocytes % 4.3 % (10-50); Mean Corpuscular Hemoglobin 31.5 pg (27.0-31.2); Mean Corpuscular Volume 98.2 fl (80-94); Mean Platelet Volume 8.5 fl (7.4-10.4); Monocytes # 0.3 K/mm3 (0.1-1.0); Monocytes % 2.6 % (1.7-9.3); Neutrophils # 11.9 K/mm3 (1.8-7.8); Platelet Count 152 K/mm3 (142-424); Red Blood Count 4.39 M/mm3 (4.60-6.20); Red Cell Distribution Width 14.7 % (11.5-17.5); White Blood Count 12.9 K/mm3 (4.8-10.8)
[2020-07-13 18:18] LABS: MANUAL DIFFERENTIAL MANUAL DIFFERENTIAL (MANUAL DIFF)
[2020-07-13 18:26] LABS: Chloride 107 mmol/L (98-107); Sodium 138 mmol/L (136-145)
[2020-07-13 18:29] LABS: Alanine Aminotransferase 19 U/L (12-78); Albumin Level 3.9 g/dl (3.5-5.0); Albumin/Globulin Ratio 1.2 (1.1-1.8); Alkaline Phosphatase 72 U/L (38-126); Aspartate Amino Transferase 36 U/L (17-59); Bilirubin,Total 0.7 mg/dl (0.2-1.3); Blood Urea Nitrogen 18 mg/dl (9-20); Calcium 9.8 mg/dl (8.4-10.2); Carbon Dioxide 28 mmol/L (22.0-30.0); Creatinine Clearance Estimated 64 mL/min (50-200); Estimated Glomerular Filt Rate 66 ml/min (>60); GFR (African American) 80 ML/MIN (>60); Globulin 3.2 g/dL (1.3-3.2); Glucose 121 mg/dl (74-100); Total Protein,Serum 7.1 g/dl (6.3-8.2)
--- NOTE | 2020-07-13 18:29 | CT_ITS ---
PROCEDURE: CT ABDOMEN PELVIS WO CON CLINICAL INDICATION: hematuria COMPARISON: CT CT ABDOMEN PELVIS WO CON from 06/12/[address] ABDOMEN PELVIS W CON from 01/11/2020 TECHNIQUE: Axial images obtained with sagittal and coronal reformats. All CT scans at the facility use one or more dose reduction, viz: automated exposure control, ma/kV adjustment per patient size (including targeted exams where dose is matched to indication, i.e. head), or iterative reconstruction technique. FINDINGS: LOWER THORAX: Bibasilar atelectatic change. ABDOMEN & PELVIS: Focal capsular calcification involves the right hepatic lobe anteriorly. No focal liver lesion evident. The spleen, right adrenal gland, and pancreas have an unremarkable appearance. Left adrenal gland is enlarged maintaining and adrenal form shape and may be due to adenomatous involvement or hyperplasia 3.4 cm right renal cyst is noted. No renal calculi. No hydronephrosis. Indeterminate lesion noted along the lower pole of the left kidney at 6.3 x 5.9 by 6.1 cm overall not significantly changed. Mild amount of retained colonic feces. The cecum is located in the right mid abdominal region. No evidence of appendicitis. The there is colonic diverticulosis but no evidence of diverticulitis. There is a small umbilical hernia containing fat. There are postsurgical changes of the lumbar spine with prior fusion of L4 and L5. Degenerative changes of the lower thoracic and lumbar spine. Mildly prominent left inguinal lymph nodes unchanged. Increased density right inguinal region which may be due to prior hernia repair. IMPRESSION: 1. No change in the 6 cm indeterminate lesion of the lower pole left kidney. The suggest ultrasound to determine cystic or solid nature in this patient with hematuria. MRI may eventually be needed. 2. Colonic diverticulosis. No evidence of diverticulitis. 3. Other nonacute findings as detailed above Dictated by: Ilir Cartagena MD 07/14/2020 07:21 Ilir Cartagena MD in [facility] 07/14/2020 07:21
[2020-07-13 18:32] LABS: Lymphocytes % 6 % (10-50); Monocytes % 6 % (2-9); Neutrophils % 84 % (42-76); Platelet Estimate Normal; RBC Morphology Normal; Total Cells Counted 100
[2020-07-13 18:40] LABS: Ethyl Alcohol < 10 mg/dl (0-10)
[2020-07-14] VITALS: BP 159/78; PULSE 95; RESP 24; TEMP 36.8; O2SAT 100
[2020-07-14 00:16] VITALS: BMI 40.1
--- NOTE | 2020-07-14 00:16 | PC.NURSE ---
patient up to floor via stretcher.
--- NOTE | 2020-07-14 00:57 | PC.NURSE ---
0016 pt states he does not know his home medications that his takes care of them for him.
[2020-07-14 04:00] VITALS: BP 137/88; PULSE 81; RESP 18; TEMP 36.8; O2SAT 99
--- NOTE | 2020-07-14 04:11 | PC.NURSE ---
shit summary pts lung sounds are clear but diminished with sats maintained 98% or above on 2L via a NC, with a rate ranging from 18-24. pt is alert and oriented X4. pt has a murphy in place with clear dark yellow in color urine. pt denies an pain, nausea, vomiting, or diarrhea.
--- NOTE | 2020-07-14 04:59 | PC.NURSE ---
shift summary pts lung sounds are diminished with sats maintained 98% or above on 2L via NC, with a rate ranging from 16-20. pt is alert and oriented X4.pt has a murphy in place with clear dark yellow in color urine. pt denies any pain, nausea, vomiting, or diarrhea.
--- NOTE | 2020-07-14 07:34 | P.CONPHA_ITS ---
[facility] Pharmacy VTE Monitoring - Patient Demographics Admission date: 07/14/20 Report Date: 07/14/20 Time: 07:34 Allergies/Adverse Reactions: Patient Allergies Penicillins Allergy (Verified 06/04/20 09:26) Height: 1.78 m Weight: 127.091 kg Patient Problems: Current Active Problems Lethargy (Acute) Dehydration (Acute) Hematuria (Acute) Renal lesion (Acute) - VTE Risk Labs: VTE Related Lab Results Hgb 13.8 g/dL (14.1-18.0) L 07/13/20 18:10 Hct 43.1 % (42.0-52.0) 07/13/20 18:10 Plt Count 152 K/mm3 (142-424) 07/13/20 18:10 BUN 18 mg/dl (9-20) 07/13/20 18:10 Creatinine 1.10 mg/dl (0.66-1.25) 07/13/20 18:10 Estimated Creat Clear 64 mL/min (50-200) 07/13/20 18:10 VTE Risk Level: Moderate Risk - Prophylaxis VTE Prophylaxis Ordered?: Yes Types of VTE Prophylaxis: TEDS Knee High, Pharmacological Location of Applied Device: Bilateral Lower Extremeties Pharmacologic Type: Other (ELIQUIS)
[2020-07-14 08:00] VITALS: BP 157/78; PULSE 77; RESP 18; TEMP 36.9; O2SAT 98
--- NOTE | 2020-07-14 08:29 | HMH.HP ---
*Admission Date: 07/13/20 *Chief complaint: Generalized malaise and weakness. Questionable mental status changes *History of present illness: 70-year-old white male with multiple medical problems including systolic and diastolic heart failure with EF 45%. Has been fairly stable and euvolemic and functional on a host of medications including Entresto, hydralazine and diuretics. Brought to the hospital because of questionable confusion, although he was oriented on arrival, his states he was out of it. He also reported that he was very weak and was unable to get up and move to the bathroom. Admitted to hospital with Pa catheter for generalized weakness for further evaluation and testing. Work-up in the ER did reveal microscopic hematuria. [facility] History Medical History: Reports:: Atrial Fibrillation, Congestive Heart Failure, Chronic Obstructive Pulmonary Disease (COPD), Hyperlipidemia, Hypertension, Palpitations Denies:: Cancer, Diabetes Mellitus Type 1, Diabetes Mellitus Type 2, Home Oxygen, Internal Pacemaker, MRSA, Seizures *Have you ever received a pneumonia vaccine?: No *Have you received a flu vaccine this season?: Yes Other Medical History: Reports: Arthritis Laterality Cases: Bilateral: Other Other Surgeries: Yes: No Previous Surgery, Appendectomy, Colonoscopy, Hernia Repair, Other. No: Pacemaker Amputation: No Fractures: No - *Social History Last grade of school completed: High school graduate Smoking Status: Former smoker Tobacco Type: cigarettes # Packs/Day (cigarettes): 1 #Yrs smoked (if former smoker): 39 Alcohol Intake: former Alcohol Intake Frequency:: other *Occupational Status:: retired Housing: house Household Members: spouse *Travel in the last 8 weeks: None Family Hx:: Hyperlipidemia, Hypertension Review of Systems - Review of Systems Review of systems:: pertinent systems reviewed and negative unless documented below This morning patient denies chest pain, shortness of air, feels back to his baseline, reports weakness but thinks it is improving. Denies recent leg swelling. Denies gross hematuria or difficulty voiding or with bowel movements. Otherwise 10 point review of systems negative. - *Neurologic Denies headache(s), Denies numbness, Denies weakness Meds Home Medications Medication Instructions Recorded Confirmed Type Hydralazine HCl [Hydralazine HCl 25 mg PO TID 12/20/17 07/13/20 History 25mg Tablet] Flecainide Acetate [Tambocor 50mg 50 mg PO BID 06/13/19 07/13/20 History tablet] Loratadine [Allergy] 10 mg PO DAILY 06/13/19 07/13/20 History Tamsulosin HCl 0.8 mg PO DAILY 06/13/19 07/13/20 History allopurinoL [Allopurinol 300mg 300 mg PO DAILY 06/13/19 07/13/20 History tablet] Finasteride [Proscar] 5 mg PO DAILY 01/11/20 07/13/20 History Lidocaine [Lidoderm 5% transdermal 1 patch TOPICAL DAILY 01/11/20 07/13/20 History patch] Multivitamin with Minerals [One 1 each PO DAILY 01/11/20 07/13/20 History Daily Complete] bisoproloL fumarate [Bisoprolol 5 mg PO DAILY 01/11/20 07/13/20 History Fumarate] dilTIAZem HCl [Diltiazem 180mg 180 mg PO DAILY 01/11/20 07/13/20 History 24Hr ER Cap] Apixaban [Eliquis 2.5mg tab] 2.5 mg PO BID 04/26/20 07/13/20 History Sacubitril/Valsartan [Entresto 97 1 tab PO BID 04/26/20 07/13/20 History mg-103 mg Tablet] Umeclidinium Brm/Vilanterol Tr 1 inh IH DAILY 04/26/20 07/13/20 History [Anoro Ellipta 62.5-25 Mcg INH] Ketoconazole [Ketoconazole 2% 0.5 gm TP BID 07/13/20 07/13/20 History Cream 15gm] Allergies Allergy/AdvReac Type Severity Reaction Status Date / Time Penicillins Allergy Verified 06/04/20 09:26 Exam Vital signs and Labs for Last 24 Hours: Temp Pulse Resp BP Pulse Ox 98.5 F 77 18 157/78 H 98 07/14/20 08:00 07/14/20 08:00 07/14/20 08:00 07/14/20 08:00 07/14/20 08:00 Laboratory Results - last 24 hr 07/13/20 17:01: Specimen Source R/r, O2 % 2, ABG pH 7.39, ABG pCO2 37.5, A
--- NOTE | 2020-07-14 09:54 | HMH.PHAINT ---
MEDICATION RECONCILIATION COMPLETED USING EXTERNAL FILL HISTORY
--- NOTE | 2020-07-14 10:55 | HMH.PTEV ---
Physical Therapy Evaluation Rehab PT IP Evaluation Start: 07/14/20 08:28 Freq: ONCE Status: Active Protocol: Document 07/14/20 09:50 PHORWILDER (Rec: 07/14/20 10:55 PHORNE [id number]) Subjective/History History History 70 yoaam adm to [facility] with possible AMS and CHF. He reports he lives with family and is indepndent with mobility at baseline usng . Subjective Subjective Pt reports he feels better this am, no new c/o. Rehab PT IP Eval Objective Appearance Patient Behavior Appropriate Patient Orientation Person,Place,Time Difficulty following instructions none Speech Pattern Clear Ambulation Patient Able to Ambulate Yes Ambulation Observation IP General Gait Pattern Observation Wide Based Gait Ambulation Distance (feet) 20 Ambulation Assistive Device Rolling Walker Ambulation Ability Supervision/Stand by Balance Ability to Arise Able, uses arms to help Sitting Balance Steady, safe Standing Balance Narrow stance w/o support Dynamic Sitting Balance Ability Good Dynamic Standing Balance Ability Good Transfers Bed Transfer Ability Supervision/Stand by Chair Transfer Ability Supervision/Stand by Sit to Stand Bed Transfer Ability Supervision/Stand by Sit to Stand Chair Transfer Ability Supervision/Stand by ROM All Extremities PT ROM Status WFL MMT All Extremities PT MMT WFL Rehab PT IP prob,goals,plan Problems Date of Evaluation: 07/14/20 PT IP Problems Bed Mobility,Transfers,Gait Rehab Potential Rehab Potential Good Plan PT Intervention Plan Bed Mobility,Transfers,Gait, Therapeutic Exercise PT Plan Frequency BID Duration LOS Discharge Goals Bed Transfer Ability Independent Sit to Stand Chair Transfer Ability Independent Ambulation Assistive Device Rolling Walker Ambulation Distance (feet) 50 Discharge Plan PT Discharge Plan Pt is appropriate to return home once medically stable. G -code Required No Eval Complexity Eval Charge Codes 21839 - Moderate Complexity PHYSICIAN CERTIFICATION: I certify the specified therapy services for Avi Phillips are required, authorized, and reviewed every 30 days.
--- NOTE | 2020-07-14 10:56 | HMH.OTEV ---
OT Inpatient Evaluation Rehab OT IP Evaluation Start: 07/14/20 08:28 Freq: ONCE Status: Complete Protocol: Document 07/14/20 10:51 ALEXANDER (Rec: 07/14/20 10:55 ALEXANDER [id number]) Rehab OT IP Assessment Subjective History 70-year-old white male with multiple medical problems including systolic and diastolic heart failure with EF 45%. Has been fairly stable and euvolemic and functional on a host of medications including Entresto , hydralazine and diuretics. Brought to the hospital because of questionable confusion, although he was oriented on arrival, his states he was out of it. He also reported that he was very weak and was unable to get up and move to the bathroom.Admitted to hospital with Pa catheter for generalized weakness for further evaluation and testing .Work-up in the ER did reveal microscopic hematuria. PMH: Atrial Fibrillation, Congestive Heart Failure, Chronic Obstructive Pulmonary Disease (COPD), Hyperlipidemia , Hypertension, Palpitations Subjective I can get up and move around. Instructed Patient on safety awareness while manuevuering throughout environment with usage of RW. OT applied extension of nasal cannal to improve ambulation distance for safety. Patient completed all bed mobility and transfers with usage of RW CGA. Patient able to d/d sock independently. Continue to provided skilled IP services with LOS to improve mobility to return home. Objective Patient Orientation Person,Place,Name,Birthday, Year,Situation Bed Mobility bed mobility - supine/
[2020-07-14 11:01] LABS: POC Glucose,Bedside 104 (70-110)
--- NOTE | 2020-07-14 13:25 | HMH.DCSUM ---
General - General Admission date:: 07/14/20 Discharge date: 07/14/20 HPI HPI: 70-year-old white male with multiple medical problems including systolic and diastolic heart failure with EF 45%. Has been fairly stable and euvolemic and functional on a host of medications including Entresto, hydralazine and diuretics. Brought to the hospital because of questionable confusion, although he was oriented on arrival, his states he was out of it. He also reported that he was very weak and was unable to get up and move to the bathroom. Admitted to hospital with Pa catheter for generalized weakness for further evaluation and testing. Work-up in the ER did reveal microscopic hematuria. Hospital Course Hospital Course: Patient was admitted overnight to the hospital, very cautious low-dose IV fluids were given and patient felt much better the next morning. He had no more problems using the restroom after catheter was discontinued and was able to get up and urinate on his own. [place] much stronger. Good urine flow. Urology consultation was obtained, results pending at the time of discharge. Patient does wish to switch his urology clinic follow-up back to Dr. Freedman for his renal mass follow-up. Patient and also wish to switch to local bridge operator slip, we will make this happen as well. Patient did well this afternoon, PT and OT evaluated patient felt he was safe to be discharged in much better with no mental status changes. I will see him in my office in short-term follow-up as well as the cardiology and urology appointments as noted Objective Vital signs: Temp Pulse Resp BP Pulse Ox 98.5 F 77 18 157/78 H 98 07/14/20 08:00 07/14/20 08:00 07/14/20 08:00 07/14/20 08:00 07/14/20 08:00 no acute distress - *Routine HEENT Exam Head: Present: normocephalic Eye: Present: EOMI, PERRL ENT: Present: mucous membranes moist - *Routine Neck Exam Present: supple - *Routine Respiratory Exam Present: CTA bilaterally - *Routine Cardiovascular Exam Present: RRR - *Routine Abdominal Exam Present: soft, normoactive bowel sounds. Absent: tenderness - *Routine Extremities Exam Absent: cyanosis, clubbing, edema - *Routine Skin Exam Present: warm. Absent: rash - Detailed Eye Exam Eyelids: Bilateral normal inspection Results Labs on day of discharge: Labs from last 24 hours 07/14/20 07/13/20 07/13/20 10:53 18:10 18:10 WBC RBC Hgb Hct MCV MCH MCHC RDW Plt Count MPV Neut % (Auto) Lymph % (Auto) Mckean % (Auto) Eos % (Auto) Baso % (Auto) Neut # (Auto) Lymph # (Auto) Mckean # (Auto) Eos # (Auto) Baso # (Auto) Total Counted Neutrophils % (Manual) Band Neutrophils % Lymphocytes % (Manual) Monocytes % (Manual) Platelet Estimate RBC Morphology Specimen Source O2 % ABG pH ABG pCO2 ABG pO2 ABG HCO3 ABG Total CO2 ABG O2 Saturation ABG Base Excess Ilir Test Sodium 138 Potassium 4.0 Chloride 107 Carbon Dioxide 28 Anion Gap 7.0 BUN 18 Creatinine 1.10 Estimated Creat Clear 64 Estimated GFR 66 Est GFR ( Amer) 80 Glucose 121 H POC Glucose 104 Calcium 9.8 Total Bilirubin 0.7 AST 36 ALT 19 Alkaline Phosphatase 72 Total Protein 7.1 Albumin 3.9 Globulin 3.2 Albumin/Globulin Ratio 1.2 Urine Color Urine Appearance Urine pH Ur Specific [place] Urine Protein Urine Glucose (UA) Urine Ketones Urine Blood Urine Nitrate Urine Bilirubin Urine Urobilinogen Ur Leukocyte Esterase Urine RBC Ur Squamous Epith Cells Urine Opiates Screen Urine Methadone Screen Ur Barbituates Screen Ur Phencyclidine Scrn Ur Amphetamines Screen U Benzodiazepines Scrn Urine Cocaine Screen U Marijuana (THC) Screen Plasma/Serum Alcohol < 10
--- NOTE | 2020-07-14 13:42 | HMH.CNCARD ---
History of Present Illness Consult date: 07/14/20 Requesting physician: Henrry Vegas Consult reason: atrial fibrillation Chief complaint: confusion History of present illness: This is a 70-year-old -[place] gentleman who was admitted to the hospital with confusion. His stated he was confused at home and brought to the emergency department. However upon arrival here at the emergency department the patient was oriented. The patient does report getting very weak at home and being unable to use the bathroom on his own. This morning he states that he feels much better. He denies any chest pain or pressure. He denies any shortness of breath. He denies any fever, chills, nausea, vomiting, diarrhea, PND orthopnea. He does state he has bilateral lower extremity edema. He states that this is chronic for him and really unchanged. He does have a history of systolic congestive heart failure, atrial fibrillation and hypertension. His most recent ejection fraction here at [facility] was 50%, on Entresto. The patient states that he wants to switch his cardiology care here to a child development director in [place] instead of going to [place]. While in the emergency department he was found to have some microscopic hematuria and a kidney lesion. However the patient has been following up with nephrology at [facility] for the renal lesion. [facility] History I have reviewed the patient's past medical history: Yes Medical History: Reports:: Atrial Fibrillation, Congestive Heart Failure, Chronic Obstructive Pulmonary Disease (COPD), Hyperlipidemia, Hypertension, Palpitations Denies:: Cancer, Diabetes Mellitus Type 1, Diabetes Mellitus Type 2, Home Oxygen, Internal Pacemaker, MRSA, Seizures *Have you ever received a pneumonia vaccine?: No *Have you received a flu vaccine this season?: Yes Other Medical History: Reports: Arthritis Laterality Cases: Bilateral: Other Other Surgeries: Yes: No Previous Surgery, Appendectomy, Colonoscopy, Hernia Repair, Other. No: Pacemaker Amputation: No Fractures: No - *Social History Last grade of school completed: High school graduate Smoking Status: Former smoker Tobacco Type: cigarettes # Packs/Day (cigarettes): 1 #Yrs smoked (if former smoker): 39 Alcohol Intake: former Alcohol Intake Frequency:: other *Occupational Status:: retired Housing: house Household Members: spouse *Travel in the last 8 weeks: None Family Hx:: Hyperlipidemia, Hypertension Meds Home Medications Medication Instructions Recorded Confirmed Type Hydralazine HCl [Hydralazine HCl 25 mg PO TID 12/20/17 07/13/20 History 25mg Tablet] Flecainide Acetate [Tambocor 50mg 50 mg PO BID 06/13/19 07/13/20 History tablet] Loratadine [Allergy] 10 mg PO DAILY 06/13/19 07/14/20 History Tamsulosin HCl 0.8 mg PO DAILY 06/13/19 07/13/20 History allopurinoL [Allopurinol 300mg 300 mg PO DAILY 06/13/19 07/13/20 History tablet] Finasteride [Proscar] 5 mg PO DAILY 01/11/20 07/13/20 History Multivitamin with Minerals [One 1 each PO DAILY 01/11/20 07/14/20 History Daily Complete] bisoproloL fumarate [Bisoprolol 5 mg PO DAILY 01/11/20 07/13/20 History Fumarate] dilTIAZem HCl [Diltiazem 180mg 180 mg PO DAILY 01/11/20 07/13/20 History 24Hr ER Cap] Apixaban [Eliquis 2.5mg tab] 2.5 mg PO BID 04/26/20 07/13/20 History Sacubitril/Valsartan [Entresto 97 1 tab PO BID 04/26/20 07/13/20 History mg-103 mg Tablet] Tiotropium Br/Olodaterol HCl 2 puff IH DAILY 07/14/20 07/14/20 History [Stiolto Respimat Inhal [place]] Allergies Allergy/AdvReac Type Severity Reaction Status Date / Time Penicillins Allergy Verified 06/04/20 09:26 Exam Vital signs and Labs for Last 24 Hours: Temp Pulse Resp BP Pulse Ox 98.5 F 77 18 157/78 H 98 07/14/20 08:00 07/14/20 08:00 07/14/20 08:00 07/14/20 08:00 07/14/20 08:00 Laboratory Results - last 24 hr 07/13/20 17:01: Specimen Source R/r, O2 % 2, ABG pH 7.39, ABG
--- NOTE | 2020-07-14 15:25 | PC.NURSE ---
This RN did make Dr. Vegas aware that Tiana Younger APRN did make recommendations to changes of meds. Dr. Vegas stated he didnt want` to make the med changes at this time and plans to eval at f/u appt.
--- NOTE | 2020-07-14 17:34 | HMH.CONS ---
*Admission Date: 07/13/20 *Reason for consult:: 6 cm left renal mass/microhematuria *History of present illness: Patient is a 70-year-old black male referred for a left renal mass and microscopic hematuria. He presented to the emergency room yesterday with some confusion. He states he feels back to normal today. A CT scan was performed which showed no change in a 6 cm left lower pole renal lesion, there is also evidence of some diverticulosis. His white count was 12.9 and his creatinine is 1.1. His urinalysis showed 2+ protein, 2+ blood with 50-100 red cells on microscopic. Patient states that he has been followed by a presumed urologist in [place] for the left renal mass and that they are watching it. [facility] History Medical History: Reports:: Atrial Fibrillation, Congestive Heart Failure, Chronic Obstructive Pulmonary Disease (COPD), Hyperlipidemia, Hypertension, Palpitations Denies:: Cancer, Diabetes Mellitus Type 1, Diabetes Mellitus Type 2, Home Oxygen, Internal Pacemaker, MRSA, Seizures *Have you ever received a pneumonia vaccine?: No *Have you received a flu vaccine this season?: No Other Medical History: Reports: Arthritis Laterality Cases: Bilateral: Other Other Surgeries: Yes: No Previous Surgery, Appendectomy, Colonoscopy, Hernia Repair, Other. No: Pacemaker Amputation: No Fractures: No - *Social History Last grade of school completed: High school graduate Smoking Status: Former smoker Tobacco Type: cigarettes # Packs/Day (cigarettes): 1 #Yrs smoked (if former smoker): 39 Alcohol Intake: former Alcohol Intake Frequency:: other *Occupational Status:: retired Housing: house Household Members: spouse *Travel in the last 8 weeks: None Family Hx:: Hyperlipidemia, Hypertension Review of Systems - Review of Systems Review of systems:: pertinent systems reviewed and negative unless documented below - *Neurologic Reports confusion, Denies headache(s), Denies numbness, Denies weakness Meds Home Medications Medication Instructions Recorded Confirmed Type Hydralazine HCl [Hydralazine HCl 25 mg PO TID 12/20/17 07/13/20 History 25mg Tablet] Flecainide Acetate [Tambocor 50mg 50 mg PO BID 06/13/19 07/13/20 History tablet] Loratadine [Allergy] 10 mg PO DAILY 06/13/19 07/14/20 History Tamsulosin HCl 0.8 mg PO DAILY 06/13/19 07/13/20 History allopurinoL [Allopurinol 300mg 300 mg PO DAILY 06/13/19 07/13/20 History tablet] Finasteride [Proscar] 5 mg PO DAILY 01/11/20 07/13/20 History Multivitamin with Minerals [One 1 each PO DAILY 01/11/20 07/14/20 History Daily Complete] bisoproloL fumarate [Bisoprolol 5 mg PO DAILY 01/11/20 07/13/20 History Fumarate] dilTIAZem HCl [Diltiazem 180mg 180 mg PO DAILY 01/11/20 07/13/20 History 24Hr ER Cap] Apixaban [Eliquis 2.5mg tab] 2.5 mg PO BID 04/26/20 07/13/20 History Sacubitril/Valsartan [Entresto 97 1 tab PO BID 04/26/20 07/13/20 History mg-103 mg Tablet] Tiotropium Br/Olodaterol HCl 2 puff IH DAILY 07/14/20 07/14/20 History [Stiolto Respimat Inhal [place]] Allergies Allergy/AdvReac Type Severity Reaction Status Date / Time Penicillins Allergy Verified 06/04/20 09:26 Exam Vital signs and Labs for Last 24 Hours: Temp Pulse Resp BP Pulse Ox 98.5 F 77 18 157/78 H 98 07/14/20 08:00 07/14/20 08:00 07/14/20 08:00 07/14/20 08:00 07/14/20 08:00 Laboratory Results - last 24 hr 07/13/20 17:20: Urine RBC 50-100, Ur Squamous Epith Cells 3-5 07/13/20 17:20: Urine Opiates Screen Negative, Urine Methadone Screen Negative, Ur Barbituates Screen Negative, Ur Phencyclidine Scrn Negative, Ur Amphetamines Screen Negative, U Benzodiazepines Scrn Negative, Urine Cocaine Screen Negative, U Marijuana (THC) Screen Negative 07/13/20 18:10: WBC 12.9 H, RBC 4.39 L, Hgb 13.8 L, Hct 43.1, MCV 98.2 H, MCH 31.5 H, MCHC 32.0, RDW 14.7, Plt Count 152, MPV 8.5, Neut % (Auto) 92.0 H, Lymph % (Auto) 4.3 L, [place] % (Auto) 2.6, Eos % (Auto) 1.0, Baso % (Auto) 0.1,
== END 2020-07-14 15:00 | disposition home or self-care (01) ==
LOC: ER 20:43 → 2ND 21:40
PROVIDERS: Admitting Provider Emergency Medicine; Emergency Provider Emergency Medicine; PCP Internal Medicine Adolescent Medicine; Visit Provider Internal Medicine Adolescent Medicine
DX: E86.0 Dehydration (principal); M19.90 Unspecified osteoarthritis, unspecified site; Z88.0 Allergy status to penicillin; N28.9 Disorder of kidney and ureter, unspecified; J44.9 Chronic obstructive pulmonary disease, unspecified; E78.5 Hyperlipidemia, unspecified; I48.91 Unspecified atrial fibrillation; Z79.02 Long term (current) use of antithrombotics/antiplatelets; R31.29 Other microscopic hematuria; I11.0 Hypertensive heart disease with heart failure; N28.89 Other specified disorders of kidney and ureter; I50.40 Unspecified combined systolic (congestive) and diastolic (congestive) heart failure; Z87.891 Personal history of nicotine dependence
CPT/HCPCS: 36415; 70450; 71045; 74176; 80053; 80305; 81001; 82803; 82962; 85007; 85025; 93005; 96365; 96366; 97116; 97162; 97165; 97530; 99284; G0378; U0003

== ENCOUNTER → 2020-08-02 09:39 | Outpatient (CLI) | payer MEDICARE, SELFPAY ==
[2020-08-02 11:15] LABS: Coronavirus 19 IgG Antibody Negative (Negative); Coronavirus 19 IgM Antibody Negative (Negative)
== END ==
PROVIDERS: Visit Provider Urology
DX: R32 Unspecified urinary incontinence (principal); Z01.812 Encounter for preprocedural laboratory examination; Z11.52 Encounter for screening for COVID-19
CPT/HCPCS: 36415; 86328

== ENCOUNTER 2020-08-04 09:45 | Day surgery (SDC) | payer MEDICARE, SELFPAY ==
[2020-08-04 10:01] VITALS: BP 139/72; PULSE 74; RESP 18; TEMP 36.3; O2SAT 97; BMI 38.2
[2020-08-04 10:43] VITALS: BP 108/61; PULSE 60; RESP 18; TEMP 36.8; O2SAT 98
[2020-08-04 10:53] VITALS: BP 136/79; PULSE 67; RESP 18; TEMP 36.8; O2SAT 98
--- NOTE | 2020-08-04 13:25 | P.OP_ITS ---
Date of procedure: 08/04/20 Pre-op Diagnosis:: BPH with obstruction Post-op Diagnosis:: BPH with obstruction Procedure performed:: Cystoscopy Surgeon:: Beto Freedman MD Anesthesia: local Estimated blood loss (mL): 0 Clinical Note:: 70-year-old white male with lower urinary tract symptoms and postvoid residual of 250 cc presents for cystoscopic evaluation. He is on finasteride and tamsulosin. Operative findings:: Trilobar hyperplasia with diffuse moderate trabeculation Operative note:: Patient taken to the cystoscopy suite after informed consent was obtained. On the stretcher he was prepped and draped in the standard surgical fashion and 2% lidocaine placed into the urethra. The urethra was clamped and after 5 minutes the clamp removed and a flexible cystoscope introduced into the urethral meatus. Passed to the prostatic urethra which showed moderate bilobar hyperplasia. The bladder was entered and examined in a systematic fashion. There is no evidence of mucosal abnormalities. There was diffuse moderate trabeculation. No cellules or diverticula were noted. The ureteral orifices in their normal an atomic position. Small median lobe was noted but did not protrude into the bladder. The urethral length was about 3 cm. Scope removed the patient tolerated the procedure well and there are no complications. He was noted to have some leakage after the scope was removed. We discussed the findings with his and discussed UroLift as a potential method to improve his lower urinary tract symptoms of which nocturia and urgency are the worst. We discussed the procedure and complications. 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 Condition: stable Disposition: same day Specimens:: None Complications:: None
== END 2020-08-04 11:00 | disposition home or self-care (01) ==
LOC: OUTP 09:47
PROVIDERS: PCP Internal Medicine Adolescent Medicine; Visit Provider Urology
DX: N40.1 Benign prostatic hyperplasia with lower urinary tract symptoms (principal); R35.1 Nocturia; N39.41 Urge incontinence; Z88.0 Allergy status to penicillin; Z79.899 Other long term (current) drug therapy; J44.9 Chronic obstructive pulmonary disease, unspecified; I11.0 Hypertensive heart disease with heart failure; I50.9 Heart failure, unspecified; E78.5 Hyperlipidemia, unspecified; I48.91 Unspecified atrial fibrillation; R00.2 Palpitations; Z86.73 Personal history of transient ischemic attack (TIA), and cerebral infarction without residual deficits
CPT/HCPCS: 52000

== ENCOUNTER → 2020-08-11 06:28 | Outpatient (CLI) | payer MEDICARE, SELFPAY ==
--- NOTE | 2020-08-11 06:43 | NM_ITS ---
APPROVED REPORT Exam: Nuclear Stress Test Indication: OBESITY, HTN, HYPERLIPIDEMIA, C.P., SOB Patient Location: Outpatient Stress Tech: Hanna Dinh [place] Tech:AMOL Adams RT (R)(N)(M) Ht: 5 ft 11 in Wt: 272 lbs HR: 72 bpm BP: 144/89 mmHg BSA: 2.40 m2 BMI: 37.9 History: OBESITY, HTN, HYPERLIPIDEMIA, C.P., SOB Procedure: Patient received a 0.4 mg of intravenous Lexiscan, resting heart rate 72 bpm, resting blood pressure 144/89 mmHg, with Lexiscan maximum heart rate achived was 91 bpm which is Less than 85 % of the maximum predicted heart rate and blood pressure was 146/74 mmHg. With Lexiscan, patient denied any complaint of chest pain. Electrocardiogram Resting electrocardiogram showed sinus rhythm nonspecific ST-T changes, with Lexiscan there is less than 1.[address] segment depression noted from the baseline EKG. The EKG portion of the Lexiscan is nondiagnostic. Cardiac Stress and Resting SPECT Images: Cardiac Stress and Resting SPECT images were obtained using technetium 99m Myoview 30.0 mCi stress and 10.54 mCi at rest. Gated SPECT for analysis of segmental wall motion and calculation of the ejection fraction also done. Prone images were also obtained. Cardiac stress and resting SPECT images show uniform myocardial activity without segmental perfusion abnormality, computer derived ejection fraction is 32% with left ventricular global hypokinesis. Conclusion: 1. The EKG portion of the Lexiscan is nondiagnostic. 2. No scintigraphic evidence of reversible ischemia seen, computer derived ejection fraction is 32% with no regional wall motion abnormality, left ventricle is globally hypokinetic. 3. Abnormal Lexiscan Myoview study due to low ejection fraction. Electronically signed by : Darinel Asencio, 08/11/2020 16:53:05
--- NOTE | 2020-08-11 06:43 | CA_ITS ---
APPROVED REPORT Exam: Pharmacologic Technologist: Hanna Dinh, Ht: 5 ft 10 in Wt: 278 lbs BSA: 2.40 m2 HR: 72 bpm BP: 144/89 mmHg Medical History Medications: Hydralazine,,,,, Flecainide,,,,, Allopurinol,,,,, TAMSULOSIN,,,,, LoraTADINE,,,,, BisOPROLOL,,,,, Finasteride,,,,, DilTiazem,,,,, Apixaban,,,,, Sacubitril-Valsartan,,,,, Siolto,,,,, Stress Test Details Test: LEXISCAN HR Resting HR: 56 bpm Max Heart Rate (APMHR): 149.207623 bpm Max HR Achieved: 98 bpm Target HR (85% APMHR): 126.407966 bpm % of APMHR: 65.77 Recovery HR: 77 bpm BP Resting BP: 144/89 mmHg Max BP: 146/74 mmHg Recovery BP: 136.0/72.0 mmHg ECG Resting ECG: NSR, PVC's, Incomplete RBBB Clinical Reason for Termination: Completed Protocol Exercise duration: 04:01 min Highest Stage Achieved: Stress ECG Conclusion Symptoms: None Arrythmias/Ectopy: PVC's, Rare Couplet ST-T Changes: <1.5mm ST Segment changes Conclusion: Non-Diagnostic Electronically signed by : Darinel Asencio, 08/11/2020 15:01:06
--- NOTE | 2020-08-11 06:43 | CA_ITS ---
APPROVED REPORT EXAM: Comprehensive 2D, Doppler, and color-flow Echocardiogram Chemical Equipment Sales Engineer: Symone Terry RVT Ht: 5 ft 10 in Wt: 278lbs BSA: 2.40 BP: 160/86 mmHg Indications: soa,cp,a-fib,as,chf,htn,hld,palps,ex smoker,copd tds-pt body habitus 2D Dimensions LVOT 2.19 cm (M/F) 1.5-2.5 LA Volume 37.90 mL LA Volume Index 15.79 mL/m2 (M/F) 16-34 M-Mode Dimensions RVDd 2.95 cm (0.9-2.6) LA Diam 3.84 cm (1.9-4.0) LVDd 4.82 cm (3.5-5.7) Ao Diam 3.35 cm (2.0-3.7) LVDs 3.54 cm (3.5-5.7) IVSd 1.33 cm (0.6-1.1) PWd 0.89 cm (0.6-1.1) EF (Teich) 51.80% FS 26.60% EDV (Teich) 108.60 mL TAPSE 1.83 (<1.7) ESV (Teich) 52.30 mL LV Diastology MED E' 3.20 (< 7 cm/sec) LAT E' 8.40 (<10 cm/sec) Aortic Valve LVOT Max 125.00 (70-110 cm/s) LVOT VTI 24.78 cm AoV Peak Tonny. 220.00 (50-130 cm/s) AO Peak GR. 19.40 mmHg AO Mean GR. 11.70 (<5 mmHg) AO VTI 42.49 (18-25 cm) BROOKE (VTI) 2.20 (2.5-4.5 cm2) Pulmonary Valve PV Peak Velocity 118.00 (50-150 cm/s) Left Ventricle Left atrium is mildly enlarged, left ventricle is normal size, mild concentric left ventricular hypertrophy, visually estimated ejection fraction 55% with no regional wall motion abnormality, diastolic parameters are inconclusive. Right Ventricle Right atrium and right ventricle are normal size and contractility. Aortic Valve Aortic valve is thickened and calcified with mean gradient across valve of 13 mmHg represents mild aortic stenosis, there is mild aortic insufficiency. Mitral Valve Mitral valve leaflets are minimally thickened, there is mild mitral regurgitation. Tricuspid Valve Tricuspid grossly normal, there is mild tricuspid regurgitation, tricuspid regurgitation jet velocity is inadequate for calculation of the right ventricular systolic pressure. Pulmonic Valve Pulmonic valve is poorly visualized. Great Vessels Aortic root is normal size. Pericardium No significant pericardial effusion noted. Conclusion 1. Mildly enlarged left atrium, normal left ventricular size, mild concentric left ventricular hypertrophy, visually estimated ejection fraction 55% with no regional wall motion abnormality, diastolic parameters are inconclusive. 2. Thickened and calcified aortic valve with mild aortic stenosis, there is mild aortic insufficiency. 3. Mild mitral and tricuspid regurgitation. 4. No significant pericardial effusion noted. Electronically signed by : Darinel Asencio, 08/11/2020 13:37:28
== END ==
PROVIDERS: PCP Internal Medicine Adolescent Medicine; Visit Provider Urology
DX: I35.1 Nonrheumatic aortic (valve) insufficiency; I35.0 Nonrheumatic aortic (valve) stenosis; I11.0 Hypertensive heart disease with heart failure; I48.0 Paroxysmal atrial fibrillation; I50.20 Unspecified systolic (congestive) heart failure; N28.9 Disorder of kidney and ureter, unspecified; R60.0 Localized edema; R06.02 Shortness of breath
CPT/HCPCS: 78452; 93017; 93306; A9502; J2785

== ENCOUNTER → 2020-08-20 13:14 | Outpatient (CLI) | payer MEDICARE, SELFPAY ==
[2020-08-20 14:18] LABS: Basophils % 0.3 % (0.1-2.0); Chloride 103 mmol/L (98-107); Eosinophils # 0.1 K/mm3 (0.0-0.4); Eosinophils % 1.3 % (0.1-12.0); Hematocrit 44.6 % (42.0-52.0); Hemoglobin 14.5 g/dL (14.1-18.0); Lymphocytes # 1.9 K/mm3 (0.7-4.5); Lymphocytes % 32.5 % (10-50); Mean Corpuscular HGB Conc 32.4 g/dL (31.8-35.4); Mean Corpuscular Hemoglobin 31.3 pg (27.0-31.2); Mean Corpuscular Volume 96.5 fl (80-94); Mean Platelet Volume 8.9 fl (7.4-10.4); Monocytes # 0.4 K/mm3 (0.1-1.0); Monocytes % 6.1 % (1.7-9.3); Neutrophils # 3.4 K/mm3 (1.8-7.8); Neutrophils % 59.7 % (37.0-80.0); Platelet Count 164 K/mm3 (142-424); Potassium 4.4 mmoL/L (3.5-5.1); Red Blood Count 4.62 M/mm3 (4.60-6.20); Red Cell Distribution Width 15.1 % (11.5-17.5); Sodium 139 mmol/L (136-145); White Blood Count 5.7 K/mm3 (4.8-10.8)
[2020-08-20 14:21] LABS: Anion Gap 11.4 mEq/L (5-15); Blood Urea Nitrogen 18 mg/dl (9-20); Calcium 10.2 mg/dl (8.4-10.2); Carbon Dioxide 29 mmol/L (22.0-30.0); Estimated Glomerular Filt Rate 54 ml/min (>60); GFR (African American) 66 ML/MIN (>60); Glucose 98 mg/dl (74-100)
== END ==
PROVIDERS: PCP Internal Medicine Adolescent Medicine; Visit Provider Physician Assistant
DX: I10 Essential (primary) hypertension (principal); I35.0 Nonrheumatic aortic (valve) stenosis; I35.1 Nonrheumatic aortic (valve) insufficiency; I48.0 Paroxysmal atrial fibrillation; I50.20 Unspecified systolic (congestive) heart failure; I51.9 Heart disease, unspecified; N28.9 Disorder of kidney and ureter, unspecified; R60.0 Localized edema; Z11.52 Encounter for screening for COVID-19; I11.0 Hypertensive heart disease with heart failure
CPT/HCPCS: 80048; 85025; U0003

== ENCOUNTER 2020-08-21 09:06 | Observation (INO) | payer MEDICARE, SELFPAY ==
[2020-08-21] VITALS (19 sets, daily range): BP systolic 137–168; BP diastolic 82–102; PULSE 60–73; RESP 16–20; TEMP 36.4–36.7; O2SAT 95–100; BMI 39.4; BMI 40.0
--- NOTE | 2020-08-21 | IR_ITS ---
APPROVED REPORT Patient Location: Outpatient [place] Technician: AMOL Gastelum RT (R) PROCEDURES Left heart catheterization Left ventriculogram Selective coronary angiogram Drug-eluting stent deployment to the proximal and mid LAD in a contiguous manner Bilateral selective renal angiography INDICATION High risk abnormal Myoview ejection fraction 32%, Systolic congestive heart failure with class III-IV symptoms, Chronic renal failure creatinine 1.3, Suspect renovascular hypertension and possible renal artery stenosis given proximal LAD and right coronary artery disease, Paroxysmal atrial fibrillation Informed consent was obtained prior to the procedure. COMPLICATIONS None Estimated Blood Loss: less than 10ml TECHNIQUE One percent lidocaine used to anesthetize the right anterior aspect of the wrist. The right radial artery was accessed via the Seldinger technique. A 6 Mongolian sheath was placed in the right radial artery. 2.5 mg of verapamil, 800 mcg of nitroglycerin, 1mg Lidocaine and 5000 U Heparin were given through the arterial sheath. The trap catheter was also used to perform left heart catheterization, left ventriculogram and selective coronary angiogram. At the end of the diagnostic procedure therapeutic heparin was administered giving a therapeutic ACT and and I Erica left guide catheter was placed in the left main artery. The proximal LAD stenosis appeared 70% to my estimation however if there was any question as to the severity of the proximal LAD lesion, and the fame 1 and vein to trials FFR was not performed in patients with systolic congestive heart failure. This gentleman had ejection fraction of 32%. Furthermore his LVEDP was severely elevated at 30 mmHg which would further make an FFR inaccurate and also contraindicated. Based on the angiographic appearance as well as reduced ejection fraction it was decided to proceed with intervention. A Choice PT extra-support wire was placed distally in the LAD and a 4 mm x 38 mm resolute [place] stent was deployed at 20 jenae reducing the stenosis. A 4.5 x 15 mm noncompliant balloon was then deployed at 24 jenae in the proximal and mid segment to further post dilate. Following revascularization and comparing the prestent stenosis to the post stent stenosis the lesion was unequivocally greater than 70%. Patient has an elevated creatinine at 1.3 with multivessel coronary artery disease therefore renal artery stenosis was suspected. Patient was on the table with arterial access therefore it was decided to proceed with bilateral selective renal angiography. A multipurpose catheter and PV multi curve were used to selectively intubate the renal arteries. At the end of the diagnostic procedure the apparatus was removed the sheath was removed and hemostasis was achieved using TR banding patient was transferred to the postop putting in stable condition ANGIOGRAPHIC RESULTS The left main artery Normal The left anterior descending artery Has a proximal concentric 70% stenosis followed by 30% stenosis as it extends into the mid LAD The circumflex artery Is a dominant vessel with mild 10% luminal irregularities The right coronary artery Is a nondominant vessel with proximal 30% and a mid vessel 50% stenosis just distal to the RV marginal branch The DUARTE ventriculogram reveals Severely dilated ventricle with reduced ejection fraction estimated at 30 to 35% The left ventricular end-diastolic pressure Severely elevated at 30 mmHg Right renal artery singular and has an ostial 20% stenosis The left renal artery has at least a dual arterial supply. The renal artery supplying the inferior 40% of the left kidney was cannulated and has an ostial 20 to 30% stenosis. The
[2020-08-21 11:42] LABS: CATHL Activated Clotting Time > 400 SEC (74-125)
--- NOTE | 2020-08-21 11:53 | HMH.PHAINT ---
MEDICATION RECONCILIATION COMPLETED ON PATIENT USING EXTERNAL FILL HISTORY FROM PHARMACY, LIST FROM ATTENDING MD OFFICE, AND LIST FROM CARDIOLOGY OFFICE. -LONNIE KAHN, PHARMD
--- NOTE | 2020-08-21 11:55 | HMH.PHAVTE ---
[facility] [place] Pharmacy VTE Monitoring - Patient Demographics Admission date: 08/21/20 Report Date: 08/21/20 Time: 11:55 Allergies/Adverse Reactions: Patient Allergies Penicillins Allergy (Verified 08/18/20 10:59) Height: 1.78 m Weight: 126.552 kg - VTE Risk VTE Score: 4 VTE Risk Level: Low Risk - Prophylaxis VTE Prophylaxis Ordered?: Yes Types of VTE Prophylaxis: TEDS Knee High Location of Applied Device: Bilateral Lower Extremeties
--- NOTE | 2020-08-21 15:00 | HMH.PNCARD ---
Subjective Date: 08/21/20 Time: 10:00 Principal diagnosis: chf, cad s/p stenting Interval history: Can [place] gentleman who came into the hospital and underwent left cardiac catheterization today as an outpatient. However following his left cardiac catheterization and renal angiogram the patient was admitted to the hospital for diuresis and optimization of his medications. The patient does have systolic congestive heart failure with severe LV dysfunction. His estimated ejection fraction is around 30 to 35%. The patient is at increased risk for sudden cardiac and will need a LifeVest prior to discharge home. He denies any chest pain or pressure at this time. He does have shortness of breath. Will diurese the patient today. He denies any fever, chills, nausea, vomiting, diarrhea, PND, or orthopnea. [facility] shows: IMPRESSION Severe proximal LAD disease Successful stenting the proximal LAD severe disease reduced to less than 10% with 1 drug-eluting stent Moderate disease in a nondominant right coronary artery which does not warrant revascularization given its small size and 50% stenosis Severe left ventricular dilatation with severely reduced ejection fraction Severely elevated LVEDP Mild nonflow limiting right renal artery stenosis Mild nonflow limiting left renal artery stenosis supplying the inferior 40% of the left renal parenchyma Biventricular congestive heart failure as evidenced by severe lower extremity edema PLAN 1. Brilinta 90 twice daily plus aspirin 81 mg daily 2. Immediate discontinuation of flecainide given LV dysfunction and ischemic heart disease. 3. Start Lasix 40 twice daily plus Aldactone 50 twice daily for cardiomyopathy and severely elevated LVEDP 4. Discontinue bisoprolol and start carvedilol 12.5 twice daily. Carvedilol provides some component of afterload reduction and probably will provide better blood pressure reduction 5. The current dosage of Eliquis is subtherapeutic for paroxysmal atrial fibrillation in this patient. The dose can be increased to 5 mg twice daily, which is the appropriate therapeutic dose. [id number] score measures at least 4 6. Discontinuation of hydralazine 7. Start high intensity statin. Lipitor 40 mg daily 8. Patient will be admitted to the hospital for further diuresis and washing out of the flecainide. Given patient's severe LV dysfunction he should be fitted for a LifeVest prior to discharge home 9. Continue Entresto however uptitrate dosage to 97/103 p.o. twice daily 10. The superior branch of the left kidney will eventually require some form of angiographic evaluation. Once patient is more stable perhaps a renal MRA can be performed to evaluate for possible renal artery stenosis Exam Vital signs and Labs for Last 24 Hours: Temp Pulse Resp BP Pulse Ox 98.1 F 73 18 142/94 H 98 08/21/20 12:05 08/21/20 13:35 08/21/20 13:35 08/21/20 13:35 08/21/20 13:35 Laboratory Results - last 24 hr 08/21/20 08:48: Activated Clotting Time > 400 H* I & O for Last 24 hours: Intake & Output 08/18/20 08/19/20 08/20/20 08/21/20 23:59 23:59 23:59 23:59 Intake Total 360 / 360 Balance 360 / 360 Weight 279 lb - Constitutional no acute distress, morbidly obese - *Routine HEENT Exam Head: Present: normocephalic, atraumatic Eye: Present: EOMI, PERRL ENT: Present: mucous membranes moist - *Routine Neck Exam Present: supple, full ROM, normal carotid upstroke. Absent: JVD, carotid bruit, lymphadenopathy - *Routine Respiratory Exam Present: CTA bilaterally - *Routine Cardiovascular Exam Present: RRR, Normal S1, Normal S2. Absent: murmur - *Routine Abdominal Exam Present: soft, normoactive bowel sounds. Absent: tenderness, distended - *Routine Extremities Exam Present: full ROM, pulses intact, normal capillary refill. Absent: cyanosis, clubbing, edema - *Routine Skin Exam Present: intact, warm. Absent: erythema, rash
--- NOTE | 2020-08-21 15:05 | CA_ITS ---
APPROVED REPORT EXAM: Comprehensive 2D, Doppler, and color-flow Echocardiogram Regulatory Administrator: CRISTA Heath, RVS Ht: 5 ft 10 in Wt: 279lbs BSA: 2.40 BP: 150/90 mmHg Indications: Post LAD stenting 08/21/2020 M-Mode Dimensions RVDd 2.59 cm (0.9-2.6) LVDd 4.96 cm (3.5-5.7) LVDs 4.34 cm (3.5-5.7) IVSd 1.43 cm (0.6-1.1) PWd 1.07 cm (0.6-1.1) EF (Teich) 46.50% FS 23.60% EDV (Teich) 158.80 mL ESV (Teich) 84.90 mL Left Ventricle Mildly enlarged, left ventricle is normal size, mild concentric left ventricular hypertrophy, visually estimated ejection fraction 50% with no regional wall motion abnormality. Right Ventricle Right atrium and right ventricle are normal size and contractility. Aortic Valve Aortic valve is thickened and calcified with restriction to leaflet mobility, aortic outflow velocity is 2.15 m/s that likely translates into mild aortic stenosis. There is no aortic insufficiency seen. Mitral Valve Mitral valve is grossly normal there is trace mitral regurgitation. Tricuspid Valve Tricuspid grossly normal, there is trace tricuspid regurgitation. Pulmonic Valve Pulmonic valve is poorly visualized. Great Vessels Aortic root is normal size. Pericardium No significant pericardial effusion noted. Conclusion 1. Normal left ventricular size, mild concentric left ventricular hypertrophy, visually estimated ejection fraction approximately 50% with no regional wall motion abnormality, diastolic parameters are not obtained in the study. 2. Thickened and calcified aortic valve likely mild aortic stenosis. 3. Mild mitral and tricuspid regurgitation. 4. Limited study was performed. Electronically signed by : Darinel Asencio, 08/22/2020 10:36:16
--- NOTE | 2020-08-21 15:07 | HMH.HP ---
*Admission Date: 08/21/20 *Chief complaint: s/p LHC, CHF *History of present illness: 70-year-old black male, resident of [facility] with long history of what initially was diagnosed as diastolic CHF, had previously been managed by cardiology in [place], but had been somewhat poorly controlled with ongoing increased edema, paroxysmal A. fib and significant breathlessness. Over the past couple of months we have increase his diuretics, and had started Entresto based on new indication for diastolic dysfunction with good resolution of some edema, but patient's family and wish to reestablish care with cardiology and [place] to be more aggressive in regards to diagnostic testing and frequent follow-ups. We arranged follow-up with cardiology at [facility], they recommended repeat echocardiogram and stress testing. Echocardiogram revealed previously noted diastolic dysfunction but echocardiogram 55%, Myoview stress testing showed wall motion abnormalities with ejection fraction 30%. Given the discordance in findings patient was taken for left heart cath this morning. Please note left heart cath findings below, copied per cardiology note. ANGIOGRAPHIC RESULTS The left main artery Normal The left anterior descending artery Has a proximal concentric 70% stenosis followed by 30% stenosis as it extends into the mid LAD The circumflex artery Is a dominant vessel with mild 10% luminal irregularities The right coronary artery Is a nondominant vessel with proximal 30% and a mid vessel 50% stenosis just distal to the RV marginal branch The DUARTE ventriculogram reveals Severely dilated ventricle with reduced ejection fraction estimated at 30 to 35% The left ventricular end-diastolic pressure Severely elevated at 30 mmHg Right renal artery singular and has an ostial 20% stenosis The left renal artery has at least a dual arterial supply. The renal artery supplying the inferior 40% of the left kidney was cannulated and has an ostial 20 to 30% stenosis. The superior branch supplying 60% of the left kidney cannot be cannulated and due to the contrast usage and the radial access which limited the number of catheters which could reach the kidney from the right radial artery it was decided to abandon the procedure and reevaluate the superior branch with either another modality or from possibly from groin access at another time. IMPRESSION Severe proximal LAD disease Successful stenting the proximal LAD severe disease reduced to less than 10% with 1 drug-eluting stent Moderate disease in a nondominant right coronary artery which does not warrant revascularization given its small size and 50% stenosis Severe left ventricular dilatation with severely reduced ejection fraction Severely elevated LVEDP Mild nonflow limiting right renal artery stenosis Mild nonflow limiting left renal artery stenosis supplying the inferior 40% of the left renal parenchyma Biventricular congestive heart failure as evidenced by severe lower extremity edema PLAN 1. Brilinta 90 twice daily plus aspirin 81 mg daily 2. Immediate discontinuation of flecainide given LV dysfunction and ischemic heart disease. 3. Start Lasix 40 twice daily plus Aldactone 50 twice daily for cardiomyopathy and severely elevated LVEDP 4. Discontinue bisoprolol and start carvedilol 12.5 twice daily. Carvedilol provides some component of afterload reduction and probably will provide better blood pressure reduction 5. The current dosage of Eliquis is subtherapeutic for paroxysmal atrial fibrillation in this patient. The dose can be increased to 5 mg twice daily, which is the appropriate therapeutic dose. [id number] score measures at least 4 6. Discontinuation of hydralazine 7. Start high intensity statin. Lipitor 40 mg daily 8. Patient will be admitted to the hospital for further diuresis and washing out of the flecainide. Given patient's severe LV dysfunction he should
[2020-08-21 15:08] LABS: Adenovirus,PCR Not Detected (NotDetected); Bordetella Pertussis Not Detected (NotDetected); Chlamydophila Pneumoniae, PCR Not Detected (NotDetected); Coronavirus 19, PCR Not Detected (NotDetected); Coronavirus 229E Not Detected (NotDetected); Coronavirus NL63 Not Detected (NotDetected); Coronavirus OC43 Not Detected (NotDetected); Coronovirus HKU1,PCR Not Detected (NotDetected); Human Metapneumovirus Not Detected (NotDetected); Influenza A, PCR Not Detected (NotDetected); Influenza AH1, 2009 Not Detected (NotDetected); Influenza AH1, PCR Not Detected (NotDetected); Influenza AH3,PCR Not Detected (NotDetected); Influenza B, PCR Not Detected (NotDetected); Mycoplasma Pneumoniae, PCR Not Detected (NotDetected); Parainfluenza 1, PCR Not Detected (NotDetected); Parainfluenza 2, PCR Not Detected (NotDetected); Parainfluenza 3, PCR Not Detected (NotDetected); Parainfluenza 4, PCR Not Detected (NotDetected); Respiratory Syncytial Virus Not Detected (NotDetected); Rhinovirus/Enterovirus Not Detected (NotDetected)
[2020-08-22] VITALS: BP 142/89; PULSE 66; PULSE 80; RESP 18; TEMP 36.6; O2SAT 97
--- NOTE | 2020-08-22 03:03 | PC.NURSE ---
Pt A&Ox4 and has slept well through the night. No c/o pain or discomfort. R radial cath site drsg in place, CDI, no drainage noted. Lungs are diminished, pt on room air for majority of shift. At 0230 pt requested 2L NC for SOA. Pt reported he normally wears O2 at home intermittently when he feels like this to manage COPD. O2 sats were 96% on room air. No edema noted, pt voiding in urinal, UOP clear and yellow. Pulses equal in all extremities. IV patent, SL. VSS, call light in reach, no concerns at this time.
[2020-08-22 04:00] VITALS: BP 151/93; PULSE 79; PULSE 80; RESP 18; TEMP 36.6; O2SAT 96
[2020-08-22 05:18] VITALS: BMI 38.9
[2020-08-22 06:33] LABS: Hematocrit 44.3 % (42.0-52.0); Hemoglobin 14.6 g/dL (14.1-18.0)
[2020-08-22 06:50] LABS: Anion Gap 10.8 mEq/L (5-15); Blood Urea Nitrogen 16 mg/dl (9-20); Calcium 10.2 mg/dl (8.4-10.2); Carbon Dioxide 28 mmol/L (22.0-30.0); Chloride 102 mmol/L (98-107); Creatinine Clearance Estimated 118 mL/min (50-200); Estimated Glomerular Filt Rate 74 ml/min (>60); GFR (African American) 89 ML/MIN (>60); Glucose 142 mg/dl (74-100); Potassium 3.8 mmoL/L (3.5-5.1); Sodium 137 mmol/L (136-145)
--- NOTE | 2020-08-22 07:38 | HMH.DCSUM ---
General - General Admission date:: 08/21/20 Discharge date: 08/22/20 HPI HPI: 70-year-old black male, resident of [facility] with long history of what initially was diagnosed as diastolic CHF, had previously been managed by cardiology in [place], but had been somewhat poorly controlled with ongoing increased edema, paroxysmal A. fib and significant breathlessness. Over the past couple of months we have increase his diuretics, and had started Entresto based on new indication for diastolic dysfunction with good resolution of some edema, but patient's family and wish to reestablish care with cardiology and [employer] to be more aggressive in regards to diagnostic testing and frequent follow-ups. We arranged follow-up with cardiology at [facility], they recommended repeat echocardiogram and stress testing. Echocardiogram revealed previously noted diastolic dysfunction but echocardiogram 55%, Myoview stress testing showed wall motion abnormalities with ejection fraction 30%. Given the discordance in findings patient was taken for left heart cath this morning. Please note left heart cath findings below, copied per cardiology note. ANGIOGRAPHIC RESULTS The left main artery Normal The left anterior descending artery Has a proximal concentric 70% stenosis followed by 30% stenosis as it extends into the mid LAD The circumflex artery Is a dominant vessel with mild 10% luminal irregularities The right coronary artery Is a nondominant vessel with proximal 30% and a mid vessel 50% stenosis just distal to the RV marginal branch The DUARTE ventriculogram reveals Severely dilated ventricle with reduced ejection fraction estimated at 30 to 35% The left ventricular end-diastolic pressure Severely elevated at 30 mmHg Right renal artery singular and has an ostial 20% stenosis The left renal artery has at least a dual arterial supply. The renal artery supplying the inferior 40% of the left kidney was cannulated and has an ostial 20 to 30% stenosis. The superior branch supplying 60% of the left kidney cannot be cannulated and due to the contrast usage and the radial access which limited the number of catheters which could reach the kidney from the right radial artery it was decided to abandon the procedure and reevaluate the superior branch with either another modality or from possibly from groin access at another time. IMPRESSION Severe proximal LAD disease Successful stenting the proximal LAD severe disease reduced to less than 10% with 1 drug-eluting stent Moderate disease in a nondominant right coronary artery which does not warrant revascularization given its small size and 50% stenosis Severe left ventricular dilatation with severely reduced ejection fraction Severely elevated LVEDP Mild nonflow limiting right renal artery stenosis Mild nonflow limiting left renal artery stenosis supplying the inferior 40% of the left renal parenchyma Biventricular congestive heart failure as evidenced by severe lower extremity edema PLAN 1. Brilinta 90 twice daily plus aspirin 81 mg daily 2. Immediate discontinuation of flecainide given LV dysfunction and ischemic heart disease. 3. Start Lasix 40 twice daily plus Aldactone 50 twice daily for cardiomyopathy and severely elevated LVEDP 4. Discontinue bisoprolol and start carvedilol 12.5 twice daily. Carvedilol provides some component of afterload reduction and probably will provide better blood pressure reduction 5. The current dosage of Eliquis is subtherapeutic for paroxysmal atrial fibrillation in this patient. The dose can be increased to 5 mg twice daily, which is the appropriate therapeutic dose. [id number] score measures at least 4 6. Discontinuation of hydralazine 7. Start high intensity statin. Lipitor 40 mg daily 8. Patient will be admitted to the hospital for further diuresis and washing out of the flecainide. Given patient's severe LV dysfunction he s
[2020-08-22 08:00] VITALS: BP 162/96; PULSE 80; PULSE 82; RESP 21; TEMP 36.6; O2SAT 97
--- NOTE | 2020-08-22 09:28 | HMH.PNCARD ---
Subjective Date: 08/22/20 Time: 09:28 Principal diagnosis: chf, cad s/p stenting Interval history: 70-year-old black male in bed in no acute distress. Denies any chest pain, pressure or tightness. Discussed the need for LifeVest and patient agrees to wearing it. Discussed the results of his cardiac cath and subsequent stenting with need for dual antiplatelet therapy. Exam Vital signs and Labs for Last 24 Hours: Temp Pulse Resp BP Pulse Ox 97.8 F 82 21 162/96 H 97 08/22/20 08:00 08/22/20 08:00 08/22/20 08:00 08/22/20 08:00 08/22/20 08:00 Laboratory Results - last 24 hr 08/21/20 08:48: Activated Clotting Time > 400 H* 08/21/20 14:37: Chlamy pneumoniae PCR Not detected, Adenovirus (PCR) Not detected, B. pertussis DNA (PCR) Not detected, Coronavirus OC43 (PCR) Not detected, Coronavirus HKU1 (PCR) Not detected, Coronavirus 229E (PCR) Not detected, SARS-CoV-2 (PCR) Not detected, Coronavirus NL63 (PCR) Not detected, Human Metapneumovir PCR Not detected, Influenza A (H1) PCR Not detected, Influ A (H1N1/09) PCR Not detected, Influenza A (H3) PCR Not detected, Influenza Type A (PCR) Not detected, Influenza Type B (PCR) Not detected, M. pneumoniae (PCR) Not detected, Parainfluenza 1 (PCR) Not detected, Parainfluenza 2 (PCR) Not detected, Parainfluenza 3 (PCR) Not detected, Parainfluenza 4 (PCR) Not detected, RSV (PCR) Not detected, Entero/Rhino (PCR) Not detected 08/22/20 05:34: Hgb 14.6, Hct 44.3 08/22/20 05:34: Sodium 137, Potassium 3.8, Chloride 102, Carbon Dioxide 28, Anion Gap 10.8, BUN 16, Creatinine 1.00 D, Estimated Creat Clear 118, Estimated GFR 74, Est GFR ( Amer) 89 D, Glucose 142 H, Calcium 10.2 I & O for Last 24 hours: Intake & Output 08/19/20 08/20/20 08/21/20 08/22/20 11:59 11:59 11:59 11:59 Intake Total 1080 / 1080 Output Total 1755 / 1755 Balance -675 / -675 Weight 279 lb 272 lb 9 oz - Constitutional no acute distress - *Routine HEENT Exam Head: Present: normocephalic Eye: Present: EOMI, PERRL ENT: Present: mucous membranes moist - *Routine Neck Exam Present: supple. Absent: lymphadenopathy - *Routine Respiratory Exam Present: CTA bilaterally - *Routine Cardiovascular Exam Present: RRR - *Routine Abdominal Exam Present: soft, normoactive bowel sounds. Absent: tenderness - *Routine Extremities Exam Absent: cyanosis, clubbing, edema - *Routine Skin Exam Present: warm. Absent: rash - *Routine Neurological Exam Present: alert, oriented X3 Progress Note: A&P (1) Systolic CHF Status: Acute (2) LV dysfunction Status: Acute (3) CAD (coronary artery disease) Status: Acute (4) Renal artery stenosis Status: Acute (5) HTN (hypertension) Status: Acute (6) HLD (hyperlipidemia) Status: Acute (7) Grade II diastolic dysfunction Status: Chronic (8) PAF (paroxysmal atrial fibrillation) Status: Chronic (9) Hypertension Status: Chronic Assessment and Plan for All Diagnoses:: Cardiac status stable. Status post LAD stenting. LifeVest being placed this AM. Blood pressure is not quite to goal but we are switching a lot of the patient's medications around and will adjust those very quickly as an outpatient. Okay for discharge from cardiac standpoint. Follow-up in 1 week. Home med recommendations Aspirin 81 mg daily Ticagrelor 90 mg twice daily Coreg 12.5 mg twice daily Lasix 40 mg twice daily Atorvastatin 40 mg daily Entresto 4 tablets twice daily Spironolactone 50 mg twice daily
[2020-08-22 12:00] VITALS: BP 148/108; PULSE 85; RESP 20; TEMP 36.6; O2SAT 93
--- NOTE | 2020-08-22 15:23 | HMH.PHACLD ---
Avi Phillips has received discharge medication counseling on the following medications: PATIENT IS TAKING ATORVASTATIN 40 MG HS, ASPIRIN 81 MG DAILY, CARVEDILOL 12.5 MG BID, ENTRESTO 97/103 MG BID, AND BRINLINTA 90 MG BID.
== END 2020-08-22 15:39 | disposition home or self-care (01) ==
LOC: 2ND 09:07
PROVIDERS: Internal Medicine; Admitting Provider Internal Medicine Adolescent Medicine; PCP Internal Medicine Adolescent Medicine; Visit Provider Internal Medicine Adolescent Medicine
DX: I50.21 Acute systolic (congestive) heart failure (principal); I11.0 Hypertensive heart disease with heart failure; I48.0 Paroxysmal atrial fibrillation; I70.1 Atherosclerosis of renal artery; I25.10 Atherosclerotic heart disease of native coronary artery without angina pectoris; Z79.899 Other long term (current) drug therapy
CPT/HCPCS: 36252; 80048; 85014; 85018; 85347; 87581; 87633; 87798; 92928; 93308; 93458; 99152; 99153; C1725; C1760; C1769; C1876; C9600; G0378; J1644; Q9967

== ENCOUNTER 2020-08-27 12:29 | Outpatient (RCR) | payer MEDICARE, SELFPAY | END 2020-11-24 10:53 | disposition home or self-care (01) | LOC: PT 12:29 | PROVIDERS: Visit Provider Internal Medicine | DX: Z95.5 Presence of coronary angioplasty implant and graft (principal) | CPT/HCPCS: 93798 ==

== ENCOUNTER → 2020-09-01 15:24 | Outpatient (CLI) | payer MEDICARE, SELFPAY ==
[2020-09-01 16:45] LABS: Anion Gap 13.6 mEq/L (5-15); Blood Urea Nitrogen 39 mg/dl (9-20); Calcium 10.8 mg/dl (8.4-10.2); Carbon Dioxide 27 mmol/L (22.0-30.0); Chloride 104 mmol/L (98-107); Estimated Glomerular Filt Rate 46 ml/min (>60); GFR (African American) 56 ML/MIN (>60); Glucose 114 mg/dl (74-100); Potassium 4.6 mmoL/L (3.5-5.1); Sodium 140 mmol/L (136-145)
== END ==
PROVIDERS: Visit Provider Physician Assistant
DX: E66.9 Obesity, unspecified (principal); E78.5 Hyperlipidemia, unspecified; I10 Essential (primary) hypertension; I25.10 Atherosclerotic heart disease of native coronary artery without angina pectoris; I35.0 Nonrheumatic aortic (valve) stenosis; I48.0 Paroxysmal atrial fibrillation; I50.20 Unspecified systolic (congestive) heart failure; I70.1 Atherosclerosis of renal artery
CPT/HCPCS: 36415; 80048

== ENCOUNTER → 2020-09-09 11:57 | Outpatient (CLI) | payer MEDICARE, SELFPAY ==
[2020-09-09 14:13] LABS: Chloride 103 mmol/L (98-107)
[2020-09-09 14:14] LABS: Sodium 140 mmol/L (136-145)
[2020-09-09 14:17] LABS: Blood Urea Nitrogen 22 mg/dl (9-20); Calcium 10.1 mg/dl (8.4-10.2); Carbon Dioxide 27 mmol/L (22.0-30.0); Estimated Glomerular Filt Rate 66 ml/min (>60); GFR (African American) 80 ML/MIN (>60); Glucose 115 mg/dl (74-100)
[2020-09-09 14:37] LABS: NT Pro Brain Natriuretic Pep. 90.3 pg/mL (0-125)
== END ==
PROVIDERS: Visit Provider Physician Assistant
DX: E66.9 Obesity, unspecified (principal); E78.5 Hyperlipidemia, unspecified; I10 Essential (primary) hypertension; I25.10 Atherosclerotic heart disease of native coronary artery without angina pectoris; I35.0 Nonrheumatic aortic (valve) stenosis; I48.91 Unspecified atrial fibrillation; I50.20 Unspecified systolic (congestive) heart failure; I70.1 Atherosclerosis of renal artery; R06.00 Dyspnea, unspecified; Z68.38 Body mass index [BMI] 38.0-38.9, adult
CPT/HCPCS: 36415; 80048; 83880

== ENCOUNTER 2020-09-21 18:09 | Inpatient (IN) | payer MEDICARE, SELFPAY ==
[2020-09-21] VITALS (16 sets, daily range): BP systolic 101–151; BP diastolic 50–89; PULSE 68–116; RESP 16–24; TEMP 36.6–37.6; O2SAT 92–100; BMI 36.9; BMI 37.0
--- NOTE | 2020-09-21 18:22 | XR_ITS ---
PROCEDURE INFORMATION: Exam: XR Left Ankle Exam date and time: 09/21/2020 6:22 PM Age: 70 years old Clinical indication: Patient HX: Left ankle pain, no known injury. TECHNIQUE: Imaging protocol: XR Left ankle. Views: 3 or more views. COMPARISON: CR XR ANKLE LT MIN 3V 02/21/2020 4:21 PM FINDINGS: Bones/joints: Pes planus deformity. Mild degenerative changes of the tibiotalar joint. No acute fracture or dislocation. Soft tissues: Moderate ankle soft tissue swelling. IMPRESSION: 1. No acute fracture or dislocation. 2. Moderate ankle soft tissue swelling.
--- NOTE | 2020-09-21 18:22 | XR_ITS ---
PROCEDURE INFORMATION: Exam: XR Left Foot Exam date and time: 09/21/2020 6:22 PM Age: 70 years old Clinical indication: Pain; Foot; Left; Additional info: Left foot pain w/o injury TECHNIQUE: Imaging protocol: XR Left foot. Views: 3 or more views. COMPARISON: CR XR FOOT WT BEARING LT 3V 11/22/2019 11:18 AM FINDINGS: Bones/joints: Small plantar calcaneal enthesophyte. Pes planus deformity. Moderate degenerative changes of the 1st metatarsophalangeal joint, with joint space narrowing and osteophyte formation. No acute fracture or dislocation. Generalized bony demineralization. Persistent flexion deformity of the 2nd toe, unchanged. Soft tissues: Normal. IMPRESSION: 1. Moderate degenerative changes of the 1st metatarsophalangeal joint, with joint space narrowing and osteophyte formation. 2. No acute fracture or dislocation.
--- NOTE | 2020-09-21 18:22 | HMH.EDGENADL ---
ED Disposition Clinical Impression: Blood loss anemia, Melena, Left leg pain Disposition: Admitted As Inpatient Condition on Discharge: Fair Referrals: Henrry Vegas MD [Primary Care Provider] - - Critical Care Critical Care Time: No Attestation: On , the high probability of a clinically significant, sudden or life threatening deterioration of the following system(s) required my full and direct attention, intervention and personal management. The time I documented below is in addition to time spent performing reported procedures but includes the following listed in this critical care notation. Medical Decision Making - Medical Records Medical records reviewed: Yes: I reviewed the patient's medical records. MR Comment: Reviewed recent heart cath. Also noted negative venous Doppler of left lower extremity 02/21/2020. - Carlos Inquiry Pt receiving controlled substance: No Vital Signs: 09/21/20 18:10 09/21/20 18:50 09/21/20 19:20 Temperature 97.9 F Temperature Source Oral Pulse Rate 106 H 77 Pulse Rate [Right] 71 Respiratory Rate 16 Blood Pressure 101/50 L 146/89 H Blood Pressure [Right Arm] 151/89 H Blood Pressure Mean [Right Arm] 109 Blood Pressure Source Automatic Cuff Automatic Cuff Blood Pressure Position Sitting Sitting 02 Sat by Pulse Oximetry 97 98 92 L Oxygen Delivery Method Room Air Nasal Cannula Nasal Cannula Oxygen Flow Rate (LPM) 2 2 - Lab Data Lab Results 09/21/20 19:48: WBC 13.6 H, RBC 2.43 L, Hgb 7.9 L*, Hct 23.5 L*, MCV 96.8 H, MCH 32.6 H, MCHC 33.7, RDW 17.8 H, Plt Count 187, MPV 9.1, Neut % (Auto) 90.8 H, Lymph % (Auto) 5.2 L, Hoke % (Auto) 2.5, Eos % (Auto) 1.4, Baso % (Auto) 0.1, Neut # (Auto) 12.4 H, Lymph # (Auto) 0.7, Hoke # (Auto) 0.3, Eos # (Auto) 0.2, Baso # (Auto) 0.0, Total Counted 100, Neutrophils % (Manual) 81 H, Band Neutrophils % 6.0, Lymphocytes % (Manual) 6 L, Monocytes % (Manual) 7, Platelet Estimate Normal, Polychromasia 2+, Hypochromasia 1+, Macrocytosis 1+ 06/13/21 19:48: Sodium 137, Potassium 3.5, Chloride 109 H, Carbon Dioxide 21 L, Anion Gap 10.5, BUN 38 H, Creatinine 1.50 H, Estimated Creat Clear 77, Estimated GFR 46 L, Est GFR ( Amer) 56 L, Glucose 134 H, Calcium 9.3 09/21/20 20:20: Stool Occult Blood Positive A Result diagrams: 09/21/20 19:48 09/21/20 19:48 Orders (Tests/Meds): ED MEDICATIONS Generic Name Dose Route Start Last Admin Trade Name Freq PRN Reason Stop Dose Admin Sodium Chloride 250 mls @ 25 mls/hr 09/21/20 20:30 Sod Chlor 0.9% 250ml Bag IV 09/22/20 20:29 .Q10H CHARLINE Pantoprazole Sodium 40 mg 09/21/20 21:00 Pantoprazole 40mg Vial IV 10/21/20 20:59 BID CHARLINE ORDERS Category Date Time Status PRBC [Red Blood Cells] Stat [facility] 09/21/20 20:21 Ordered Type and Screen Stat [facility] 09/21/20 20:21 Ordered - Radiology Data #1 Image(s): Ankle, Foot/Toes Image Reviewed: Yes I reviewed the patient's radiology image Preliminary Findings: Normal/NAD - ECG Data Tracing #1 EKG interpreted by Sabas Conde MD: Rhythm: sinus Rate: Anderson: normal Ectopy: Premature atrial contractions, premature ventricular contractions Conduction: normal ST Segment Changes: none T Wave Changes: Nonspecific Q Waves: none No evidence of acute ischemia or injury - Physician Consults Physician Consulted: [place] Time: 20:40 Reason -: Admission Comment/Response: Agrees to admit the patient to the hospital. We discussed the patient's clinical information, including history, exam, laboratory and radiology results and ED course. Per hospital procedure, I will write temporary bridge inpatient orders on the patient. Specific orders requested by the admitting physician: Agrees with transfusion, Protonix, stop anticoagulants. Consult Dr. Hoyos. Doppler of left leg tomorrow. Medical Decision Narrative: 7:45 PM: Nurse spoke with patient's who was morning impression of both legs were bothering him. I
--- NOTE | 2020-09-21 18:30 | ECG_ITS ---
APPROVED REPORT Exam: Resting ECG HR:109 bpm ECG Measurements Heart Rate 109 AXES AZ 236 P 60 QRSd 90 QRS 25 QT 292 T 100 QTc 393 Conclusion Undetermined rhythm Low voltage QRS Nonspecific T wave abnormality Abnormal ECG Electronically signed by : Henrry Vegas, 09/23/2020 08:22:09
[2020-09-21 19:57] LABS: Basophils % 0.1 % (0.1-2.0); Eosinophils # 0.2 K/mm3 (0.0-0.4); Eosinophils % 1.4 % (0.1-12.0); Lymphocytes # 0.7 K/mm3 (0.7-4.5); Lymphocytes % 5.2 % (10-50); Mean Corpuscular HGB Conc 33.7 g/dL (31.8-35.4); Mean Corpuscular Hemoglobin 32.6 pg (27.0-31.2); Mean Corpuscular Volume 96.8 fl (80-94); Mean Platelet Volume 9.1 fl (7.4-10.4); Monocytes # 0.3 K/mm3 (0.1-1.0); Monocytes % 2.5 % (1.7-9.3); Neutrophils # 12.4 K/mm3 (1.8-7.8); Neutrophils % 90.8 % (37.0-80.0); Platelet Count 187 K/mm3 (142-424); Red Blood Count 2.43 M/mm3 (4.60-6.20); Red Cell Distribution Width 17.8 % (11.5-17.5); White Blood Count 13.6 K/mm3 (4.8-10.8)
[2020-09-21 20:05] LABS: Anion Gap 10.5 mEq/L (5-15); Blood Urea Nitrogen 38 mg/dl (9-20); Calcium 9.3 mg/dl (8.4-10.2); Carbon Dioxide 21 mmol/L (22.0-30.0); Chloride 109 mmol/L (98-107); Creatinine Clearance Estimated 77 mL/min (50-200); Estimated Glomerular Filt Rate 46 ml/min (>60); GFR (African American) 56 ML/MIN (>60); Glucose 134 mg/dl (74-100); Potassium 3.5 mmoL/L (3.5-5.1); Sodium 137 mmol/L (136-145)
[2020-09-21 20:07] LABS: Hematocrit 23.5 % (42.0-52.0); Hemoglobin 7.9 g/dL (14.1-18.0)
[2020-09-21 20:08] LABS: MANUAL DIFFERENTIAL MANUAL DIFFERENTIAL (MANUAL DIFF)
--- NOTE | 2020-09-21 20:08 | PC.NURSE ---
er notified of critcal H&H 7.9 23.5
[2020-09-21 20:14] LABS: Coronavirus 19, PCR Not Detected (NotDetected); Influenza A, PCR Not Detected (NotDetected); Influenza B, PCR Not Detected (NotDetected)
[2020-09-21 20:24] LABS: Lymphocytes % 6 % (10-50); Monocytes % 7 % (2-9); Neutrophils % 81 % (42-76); Platelet Estimate Normal; Total Cells Counted 100
[2020-09-21 20:25] LABS: Hypochromasia 1+; Macrocytosis 1+; Polychromasia 2+
[2020-09-21 20:37] LABS: Occult Blood,Stool Positive (Negative)
--- NOTE | 2020-09-21 21:52 | PC.NURSE ---
patient up to floor via wheelchair.
[2020-09-22] VITALS (29 sets, daily range): BP systolic 84–149; BP diastolic 43–89; PULSE 61–98; RESP 12–24; TEMP 36.3–38.3; O2SAT 91–100; BMI 37.3
--- NOTE | 2020-09-22 00:50 | XR_ITS ---
PROCEDURE INFORMATION: Exam: XR Chest Exam date and time: 09/22/2020 12:50 AM Age: 70 years old Clinical indication: Other: Possible infection TECHNIQUE: Imaging protocol: XR of the chest. Views: 1 view. COMPARISON: CR XR CHEST PORTABLE 07/13/2020 5:16 PM FINDINGS: Lungs: Normal. Pleural spaces: Unremarkable. No pleural effusion. No pneumothorax. Heart/Mediastinum: Normal. Bones/joints: Multilevel thoracic spine degenerative disc space narrowing and osteophyte formation. IMPRESSION: No acute cardiopulmonary abnormality.
--- NOTE | 2020-09-22 00:56 | PC.NURSE ---
notified over increase in temp see provider notification
--- NOTE | 2020-09-22 04:19 | PC.NURSE ---
pt admitted with gi bleed. 2 units PRBC have been given per order. md was notified over increase in temp and new orders were received and given. pt has remained with increase temp. all other vss. 2LNC in use. pt was a 2 assist to bed. uses walker at home. iv patent and sl. alert and oriented. call light in reach. pt has not voided since arrival to floor. will continue to monitor
[2020-09-22 06:58] LABS: Basophils % 0.1 % (0.1-2.0); Eosinophils # 0.1 K/mm3 (0.0-0.4); Eosinophils % 0.5 % (0.1-12.0); Hematocrit 28.3 % (42.0-52.0); Lymphocytes # 0.6 K/mm3 (0.7-4.5); Lymphocytes % 4.8 % (10-50); Mean Corpuscular HGB Conc 33.1 g/dL (31.8-35.4); Mean Corpuscular Hemoglobin 31.6 pg (27.0-31.2); Mean Corpuscular Volume 95.5 fl (80-94); Mean Platelet Volume 8.3 fl (7.4-10.4); Monocytes # 0.4 K/mm3 (0.1-1.0); Monocytes % 3.4 % (1.7-9.3); Neutrophils % 91.2 % (37.0-80.0); Platelet Count 158 K/mm3 (142-424); Red Blood Count 2.97 M/mm3 (4.60-6.20); Red Cell Distribution Width 18.1 % (11.5-17.5); White Blood Count 12.1 K/mm3 (4.8-10.8)
--- NOTE | 2020-09-22 07:00 | CA_ITS ---
APPROVED REPORT Left Lower Extremity Venous Study for DVT. 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: CT Indications left leg pain and swelling Risk Factors Obesity Vein Imaging CFV (L): compressive, spontaneous, phasic, augmentation SFJ (L): compressive, spontaneous, phasic, augmentation FEM (L): compressive, spontaneous, phasic, augmentation POP (L): compressive, spontaneous, phasic, augmentation DFV (L): compressive, spontaneous, phasic, augmentation PTV (L): compressive, spontaneous, phasic, augmentation GSV (L): compressive, spontaneous, phasic, augmentation SSV (L): compressive, spontaneous, phasic, augmentation Peroneals (L):compressive, spontaneous, phasic, augmentation GAS (L): compressive, spontaneous, phasic, augmentation Findings LLE negative for DVT/SVT Vessels compressible no reflux noted Conclusion LLE negative for DVT/SVT Vessels compressible no reflux noted Electronically signed by : Kurt Newton, 09/22/2020 08:07:28
[2020-09-22 07:08] LABS: MANUAL DIFFERENTIAL MANUAL DIFFERENTIAL (MANUAL DIFF)
--- NOTE | 2020-09-22 07:08 | HMH.HP ---
*Admission Date: 09/22/20 *Chief complaint: leg pain, melena *History of present illness: Mr. Phillips is a pleasant 70-year-old -[place] male who was admitted a month ago for worsening CHF. Left heart cath performed with LAD stent placement. Significant adjustment to his medications and was sent home with a LifeVest due to decreased ejection fraction from 55% to less than 30% in the span of just a few months. He presented this visit to the ER last night due to worsening left ankle pain. Complains of feeling weak and having black stools as well over the past few weeks. Of note he was discharged on triple therapy with oral anticoagulation, antiplatelet therapy consisting of Brilinta and aspirin. Has been on Protonix daily. Hemoglobin on arrival in the low 7 range. At discharge a month ago hemoglobin 14. Patient was admitted for concern for GI source for his acute blood loss anemia. Imaging performed of his left ankle showed no fractures just soft tissue swelling. Patient does have a history of gout, symptoms consistent with his previous gout flares. On exam this morning, he complains of some weakness, fatigue, left ankle pain and swelling. Denies any nausea, chest pain, shortness of breath. Is currently n.p.o. awaiting GI consult. No other complaints at this time [facility] History I have reviewed the patient's past medical history: Yes Medical History: Reports:: Arrhythmia, Asthma, Atrial Fibrillation, Congestive Heart Failure, Chronic Obstructive Pulmonary Disease (COPD), Congenital Heart Disease, Hyperlipidemia, Hypertension, Palpitations, Transient Ischemic Attacks (TIA) Denies:: Cancer, Diabetes Mellitus Type 1, Diabetes Mellitus Type 2, Home Oxygen, Internal Pacemaker, MRSA, Seizures *Have you ever received a pneumonia vaccine?: Yes *Have you received a flu vaccine this season?: Yes Other Medical History: Reports: Anemia, Arthritis Laterality Cases: Bilateral: Other Other Surgeries: Yes: No Previous Surgery, Appendectomy, Cardiac Catheterization (08/21/20), Colonoscopy, Coronary Stent, Hernia Repair, Other (back surgery). No: Pacemaker Amputation: No Fractures: No - *Social History Smoking Status: Never smoker Tobacco Type: cigarettes # Packs/Day (cigarettes): 1 #Yrs smoked (if former smoker): 39 Alcohol Intake: never Alcohol Intake Frequency:: other Substance Use Type: denies use *Occupational Status:: disabled Housing: house Household Members: spouse *Travel in the last 8 weeks: None Family Hx:: Hyperlipidemia, Hypertension Review of Systems - Review of Systems Review of systems:: pertinent systems reviewed and negative unless documented below (14 point review of systems performed, pertinent positives and negatives as per HPI) Meds Home Medications Medication Instructions Recorded Confirmed Type Loratadine [Allergy] 10 mg PO DAILY 06/13/19 09/21/20 History Tamsulosin HCl 0.8 mg PO DAILY 06/13/19 09/21/20 History allopurinoL [Allopurinol 300mg 300 mg PO DAILY 06/13/19 09/21/20 History tablet] Finasteride [Proscar] 5 mg PO DAILY 01/11/20 09/21/20 History Multivitamin with Minerals [One 1 each PO DAILY 01/11/20 09/21/20 History Daily Complete] Tiotropium Br/Olodaterol HCl 2 puff IH DAILY 07/14/20 09/21/20 History [Stiolto Respimat Inhal [place]] Aspirin [Aspirin 81mg EC Tab] 81 mg PO DAILY 08/21/20 09/21/20 History Sacubitril/Valsartan [Entresto 97 1 tab PO BID 08/22/20 09/21/20 History mg-103 mg Tablet] Ticagrelor [Brilinta 90mg 90 mg PO BID 30 Days #60 tab 08/22/20 09/21/20 Rx Tablet] Apixaban [Eliquis 5mg Tablet] 5 mg PO BID 09/21/20 09/21/20 History Atorvastatin Calcium [Lipitor 40mg 40 mg PO HS 09/21/20 09/21/20 History Tablet*] Furosemide [Furosemide 40MG tAB*] 40 mg PO DAILY 09/21/20 09/21/20 History Pantoprazole Sodium 40 mg PO DAILY 09/21/20 09/21/20 History Spironolactone [Spironolactone 50 mg PO DAILY 09/21/20 09/21/20 History 25mg Tablet] carvediloL [Coreg 12.5mg 12.5
--- NOTE | 2020-09-22 07:16 | P.CONPHA_ITS ---
[facility] Pharmacy VTE Monitoring - Patient Demographics Admission date: 09/21/20 Report Date: 09/22/20 Time: 07:16 Allergies/Adverse Reactions: Patient Allergies Penicillins Allergy (Verified 09/01/20 14:38) Height: 1.8 m Weight: 121.109 kg Patient Problems: Current Active Problems Blood loss anemia (Acute) Melena (Acute) Left leg pain (Acute) Systolic CHF (Acute) CAD (coronary artery disease) (Acute) HTN (hypertension) (Acute) HLD (hyperlipidemia) (Acute) Chronic atrial fibrillation (Acute) Obesity (BMI 30-39.9) (Chronic) - VTE Risk Labs: VTE Related Lab Results Hgb 7.9 g/dL (14.1-18.0) L* 09/21/20 19:48 Hct 28.3 % (42.0-52.0) L 09/22/20 06:44 Plt Count 158 K/mm3 (142-424) 09/22/20 06:44 BUN 38 mg/dl (9-20) H 09/21/20 19:48 Creatinine 1.50 mg/dl (0.66-1.25) H 09/21/20 19:48 Estimated Creat Clear 77 mL/min (50-200) 09/21/20 19:48 - Prophylaxis VTE Prophylaxis Ordered?: Yes Types of VTE Prophylaxis: TEDS Knee High Location of Applied Device: Bilateral Lower Extremeties
[2020-09-22 08:29] LABS: Lymphocytes % 4 % (10-50); Neutrophils % 95 % (42-76); Total Cells Counted 100
[2020-09-22 08:30] LABS: Anisocytosis 2+; Hypochromasia 1+; Macrocytosis 2+; Platelet Estimate Normal
[2020-09-22 08:59] LABS: Uric Acid 6.9 mg/dl (3.5-8.5)
--- NOTE | 2020-09-22 09:22 | HMH.CNCARD ---
History of Present Illness Consult date: 09/22/20 Requesting physician: Kurt Tam Chief complaint: GI bleed History of present illness: 70 year old -[place] male admitted to [facility] with worsening lower extremity pain and swelling. Upon this admission it was noted that patient was positive for stool Hemoccult. Patient reported no active bleeding noted. H&H had noted to have dropped since last hospital discharge. Cardiology was consulted due to patient being on dual antiplatelet therapy and anticoagulant therapy. Patient underwent left heart catheterization and 08/29 which revealed severe proximal LAD stenosis and RCA stenosis. Patient was also noted to have biventricular congestive heart failure due to evidence of severe lower extremity edema. Patient was started on Brilinta and low-dose baby aspirin at that time. Patient also has history of Paroxysmal atrial fibrillation. Patient has been in sinus rhythm with occasional PACs and PVCs. Last cardiology appointment on 09/01/2020 revealed patient to be in sinus rhythm with occasional PAC. Patient is currently on Eliquis 5 mg twice daily for anticoagulant therapy. Patient denies chest pain, tightness or pressure. Patient denies shortness of breath. Patient does have swelling of the lower extremities. Patient did undergo EGD this a.m. Patient remains draggy during this assessment. C:IMPRESSION (08/21/20) Severe proximal LAD disease Successful stenting the proximal LAD severe disease reduced to less than 10% with 1 drug-eluting stent Moderate disease in a nondominant right coronary artery which does not warrant revascularization given its small size and 50% stenosis Severe left ventricular dilatation with severely reduced ejection fraction Severely elevated LVEDP Mild nonflow limiting right renal artery stenosis Mild nonflow limiting left renal artery stenosis supplying the inferior 40% of the left renal parenchyma Biventricular congestive heart failure as evidenced by severe lower extremity edema Echo Conclusion (08/29) 1. Normal left ventricular size, mild concentric left ventricular hypertrophy, visually estimated ejection fraction approximately 50% with no regional wall motion abnormality, diastolic parameters are not obtained in the study. 2. Thickened and calcified aortic valve likely mild aortic stenosis. 3. Mild mitral and tricuspid regurgitation. 4. Limited study was performed. Discussed plan of care with Dr. Smith. Orders received from Dr. Smith. Will stop aspirin due to GI bleed. If patient can remain in sinus rhythm, may can consider to stop Eliquis. Please continue to monitor patient status and notify cardiology of any changes. Thank you for allowing cardiology to participate in the care of this patient. [facility] History Medical History: Reports:: Arrhythmia, Asthma, Atrial Fibrillation, Congestive Heart Failure, Chronic Obstructive Pulmonary Disease (COPD), Congenital Heart Disease, Hyperlipidemia, Hypertension, Palpitations, Transient Ischemic Attacks (TIA) Denies:: Cancer, Diabetes Mellitus Type 1, Diabetes Mellitus Type 2, Home Oxygen, Internal Pacemaker, MRSA, Seizures *Have you ever received a pneumonia vaccine?: Yes *Have you received a flu vaccine this season?: Yes Other Medical History: Reports: Anemia, Arthritis Laterality Cases: Bilateral: Other Other Surgeries: Yes: No Previous Surgery, Appendectomy, Cardiac Catheterization (08/21/20), Colonoscopy, Coronary Stent, Hernia Repair, Other (back surgery). No: Pacemaker Amputation: No Fractures: No - *Social History Smoking Status: Never smoker Tobacco Type: cigarettes # Packs/Day (cigarettes): 1 #Yrs smoked (if former smoker): 39 Alcohol Intake: never Alcohol Intake Frequency:: other Substance Use Type: denies use *Occupational Status:: disabled Housing: house Household Members: spouse *Travel in the last 8 weeks: None Family Hx:: Hyperlipidemia, Hypertension Meds Home Medications Medication Ins
--- NOTE | 2020-09-22 09:24 | HMH.ANESCL ---
[facility] Anesthesia Checklist - Patient Identification Patient Identification: Arm Band - Structural Data Admitted From: Inpatient Planned Operative Procedure/s: EGD Consent for Planned Operative Procedure(s) Verified: Yes Verified Documents: Surgical Consent, History and Physical - NPO Status Verified Time NPO: 00:00 - Additional verifications Anesthesia Reactions: No - Airway Assessment C-Spine Mobility Assessed: Yes (mp2) TMJ Mobility Assessed: Yes Dentition: Poor Dentition - Neurological Assessment Level of Consciousness: Awake, Alert - Anesthesia Plan Anesthesia Risk discussed: Yes Anesthesia Plan: Verified ASA Class: III Anesthesia Type: MAC [facility] History I have reviewed the patient's past medical history: Yes Medical History: Reports:: Arrhythmia, Asthma, Atrial Fibrillation, Congestive Heart Failure, Chronic Obstructive Pulmonary Disease (COPD), Congenital Heart Disease, Hyperlipidemia, Hypertension, Palpitations, Transient Ischemic Attacks (TIA) Denies:: Cancer, Diabetes Mellitus Type 1, Diabetes Mellitus Type 2, Home Oxygen, Internal Pacemaker, MRSA, Seizures *Have you ever received a pneumonia vaccine?: Yes *Have you received a flu vaccine this season?: Yes Other Medical History: Reports: Anemia, Arthritis Anesthesia experience/problems:: nac Laterality Cases: Bilateral: Other Other Surgeries: Yes: Appendectomy, Cardiac Catheterization (08/21/20), Colonoscopy, Coronary Stent, Hernia Repair, Other (back surgery). No: Pacemaker Amputation: No Fractures: No - *Social History Smoking Status: Never smoker Tobacco Type: cigarettes # Packs/Day (cigarettes): 1 #Yrs smoked (if former smoker): 39 Alcohol Intake: never Alcohol Intake Frequency:: other Substance Use Type: denies use *Occupational Status:: disabled Housing: house Household Members: spouse *Travel in the last 8 weeks: None Family Hx:: Hyperlipidemia, Hypertension
--- NOTE | 2020-09-22 09:43 | P.PCN_ITS ---
[facility] Procedure Note Procedure Note:: Upper Endoscopy Procedure Report: Esophagogastroduodenoscopy with cold biopsies and APC (argon plasma coagulation) ablation Endoscopost: Oral Hoyos II, MD Referring Physician: Henrry Vegas M.D. Date of Procedure: September 22, 2020 Equipment: Olympus GIF 190 standard upper endoscope Sedation: MAC sedation Indications: Mr. Phillips is a 70-year-old gentleman who was admitted for new onset of melanotic stools and anemia. He had been admitted 1 month ago with worsening cardiomyopathy and CHF. The patient has been on Eliquis and Brilinta. He also has been on Protonix daily. His hemoglobin 1 month ago was 14 and on admission his hemoglobin was 7.9 with hematocrit 23.5. The patient did have a CAT scan of the abdomen and pelvis on July 14, 2020 that showed a probable cyst on the left kidney (6 cm) and colonic diverticulosis. The patient does report some right lower quadrant abdominal pain and discomfort and back pain. He reports no heartburn, reflux or dysphagia. He has had no prior bleeding. He has been on NSAIDs. Procedure: Prior to the procedure, a history and physical exam was performed, and patient's medications and allergies were reviewed. The risks, benefits and alternatives of the sedation and procedure were discussed with the patient. All questions were answered and informed consent was obtained. The patient was brought to the procedure room. Patient identification and proposed procedure were verified by the physician and the nurse. The patient was placed in a left lateral decubitus position and the scope was passed under direct vision. Throughout the procedure, the patient's blood pressure, pulse, and oxygen saturations were monitored continuously. The upper GI endoscopy was accomplished without difficulty. The patient tolerated the procedure well. Findings: The scope was passed directly into the upper esophagus and advanced to the third portion of the duodenum. The post bulbar duodenum was normal and the ampulla was well visualized with some darker bile extravasating from the ampulla. There is a single nonbleeding AVM of the third portion. There was a polypoid submucosal lesion in the duodenal bulb that was biopsied (well biopsies). The remainder of the bulb and pylorus were normal. The scope was withdrawn into the stomach. 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 These were ablated/coagulated using the APC. There was some linear reactive gastropathy that was mild. There was a polyp with surface whitish appearance (possible lymphangiectasia) that was removed via cold biopsy. The remainder of the body and fundus of the stomach was normal. Upon retroflexion there was no hiatal hernia. The scope was then withdrawn into the esophagus. There was no evidence of reflux esophagitis or Morris's. There were no esophageal varices. The remainder of the esophageal mucosa was normal. Impression: 1. 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 Small gastric polyp (rule out lymphangiectasia) 3. Mild linear reactive gastropathy 4. Duodenal bulb submucosal polyp?status post biopsies Plan: There was nothing in the upper digestive tract that would likely result in any significant acute and significant GI hemorrhage. I would recommend H emoccult testing. If he is Hemoccult positive, I would consider colonoscopy especially with his right lower quadrant pain. The patient does have significant comorbidities. I do feel that the anticoagulation certainly played some role with this. He is being followed by cardiology. I will follow-up the biopsies.
--- NOTE | 2020-09-22 10:27 | HMH.PHAINT ---
verified home medication list using lists from PCP office and outpatient pharmacy
[2020-09-22 13:40] LABS: RBC Morphology NORMAL
[2020-09-22 13:45] LABS: Hemoglobin 9.4 g/dL (14.1-18.0)
--- NOTE | 2020-09-22 18:32 | PC.NURSE ---
HE IS AOX4, ABLE TO MAKE NEEDS KNOWN TO STAFF, 2LNC FOR O2 SUPPORT, NO C/O PAIN OR N/V. BOWEL PREP ADMIN PER ORDER, LOOSE DARK STOOLS NOTED. NO NEEDS AT THIS TIME.
[2020-09-22 21:16] LABS: POC Glucose,Bedside 146 (70-110)
--- NOTE | 2020-09-22 21:19 | PC.NURSE ---
Patient unable to wake with shaking and voice (speaking very loudly) Called Dr. Cope to advise. behavioral school counselors stated that patient was listless and did not respond. After behavioral school counselors left the room, the patient woke up and could speak in a normal tone and was responsive. MD stated to continue to monitor. Will continue to monitor for any acute changes.
[2020-09-23] VITALS (33 sets, daily range): BP systolic 102–133; BP diastolic 43–74; PULSE 56–90; RESP 17–27; TEMP 36.1–36.6; O2SAT 91–100; BMI 37.3
--- NOTE | 2020-09-23 | IR_ITS ---
APPROVED REPORT Patient Location: [facility] Traffic Safety: AMOL Jama RT (R) PROCEDURES Left heart catheterization Left ventriculogram Selective coronary angiogram Placement of right radial arterial line 30 minutes of intensive care management following the cardiopulmonary resuscitation INDICATION Cardiopulmonary arrest, Known coronary disease, History of congestive heart failure, Respiratory acidosis, Cardiogenic shock, SCAI INDICATION Clinical history: During EGD today patient had bradycardia accompanied by cardiopulmonary arrest. He was quickly intubated by anesthesia and a full cardiopulmonary arrest/blue code was performed. I was contacted by the attending physician who was concerned about stent thrombosis given the recent drug-eluting stent placement in the proximal LAD and patient now being off dual antiplatelet therapy. Patient was admitted with a GI bleed and was considered hypercoagulable based on the anemia etc. EKG demonstrated a wide intraventricular conduction delay and was nondiagnostic for an ST elevation myocardial infarction. Based on patient's clinical demise and now recovery from cardiopulmonary arrest it seemed reasonable to proceed with diagnostic angiography to confirm stent patency. Because of this patient was brought emergently to the [facility] and underwent diagnostic angiography as described above. At the end of the procedure 1% lidocaine was used to anesthetize the right anterior aspect of the wrist and the right radial artery was accessed via the Salinger technique. An arterial line was placed in order to provide the primary team continuous arterial blood pressure and blood gases while patient remained intubated. Blood gases were submitted while patient was on the cardiac cath table and the ventilator was changed by myself in order to adjust for the respiratory acidosis. The FiO2 was also decreased from 100% down to 40% after the PO2 came back greater than 500 Informed consent was obtained prior to the procedure. COMPLICATIONS None Estimated Blood Loss: Less than 10 mls TECHNIQUE 1% lidocaine used anesthetize right groin the right femoral was accessed via Salinger technique and a 5 Urdu sheath was placed in the right femoral artery. A JL4 JR4 catheter used to perform left heart catheterization left ventriculogram and selective coronary angiogram. At the end of the procedure Levophed was quickly weaned and turned off. Patient was given additional sedation due to the endotracheal intubation. Blood gases were sent off with changes in the ventilator based on the blood gas. The ventilator settings were changed. Patient was transferred to the intensive care unit and guarded condition ANGIOGRAPHIC RESULTS The left main artery Normal The left anterior descending artery Has a stent in the proximal segment which is widely patent free of thrombosis with excellent proximal distal transitioning. ANSLEY-3 flow was present down the vessel The circumflex artery Mild nonflow limiting luminal irregularities nothing greater than 10% The right coronary artery Is codominant and has mid vessel 40% stenosis The DUARTE ventriculogram reveals Reduced ejection fraction with dilated ventricle. Ejection fraction estimated 35% The left ventricular end-diastolic pressure 20 mmHg IMPRESSION Widely patent stent as described above No change in coronary disease since recent stenting No primary cardiogenic etiology for patient's clinical demise PLAN 1. Continue supportive care Electronically signed by : Zackary Smith, 09/23/2020 14:13:22
--- NOTE | 2020-09-23 05:51 | PC.NURSE ---
Pleasant gentleman now alert and oriented times 4. Patient received Rx for Bowl prep. Consent for Colonoscopy signed and Name Band/Allergy Band on. Patient Currently on C Bowel elimnation. Patient took Zofran 4 mg IV for Vomitus prophylaxis, no nausea noted while drinking Bowel Prep. Will continue to monitor.
--- NOTE | 2020-09-23 06:40 | PC.NURSE ---
Patient voided via Bowel movements x 5 measuring 840 mls, have not emptied the currently BSC .
--- NOTE | 2020-09-23 07:00 | PC.NURSE ---
PT OFF THE FLOOR VIA BED WITH OR STAFF AT 0700
[2020-09-23 07:10] LABS: Basophils % 0.1 % (0.1-2.0); Eosinophils % 0.3 % (0.1-12.0); Hematocrit 28.5 % (42.0-52.0); Hemoglobin 9.5 g/dL (14.1-18.0); Lymphocytes # 1.3 K/mm3 (0.7-4.5); Lymphocytes % 10.4 % (10-50); Mean Corpuscular HGB Conc 33.4 g/dL (31.8-35.4); Mean Corpuscular Volume 95.7 fl (80-94); Mean Platelet Volume 8.3 fl (7.4-10.4); Monocytes # 0.5 K/mm3 (0.1-1.0); Monocytes % 4.3 % (1.7-9.3); Neutrophils # 10.3 K/mm3 (1.8-7.8); Neutrophils % 84.9 % (37.0-80.0); Platelet Count 180 K/mm3 (142-424); Red Blood Count 2.98 M/mm3 (4.60-6.20); Red Cell Distribution Width 17.9 % (11.5-17.5); White Blood Count 12.2 K/mm3 (4.8-10.8)
--- NOTE | 2020-09-23 07:13 | P.PN_ITS ---
[facility] Anesthesia Checklist - Patient Identification Patient Identification: Arm Band - Structural Data Admitted From: Home Planned Operative Procedure/s: Colonoscopy Consent for Planned Operative Procedure(s) Verified: Yes - NPO Status Verified Time NPO: 00:00 - Additional verifications Anesthesia Reactions: No - Airway Assessment C-Spine Mobility Assessed: Yes TMJ Mobility Assessed: Yes - Neurological Assessment Level of Consciousness: Awake Hx Seizures: No Numbness or tingling in extremities: No - Anesthesia Plan Anesthesia Risk discussed: Yes Anesthesia Plan: Verified ASA Class: II Anesthesia Type: MAC [facility] History I have reviewed the patient's past medical history: Yes Medical History: Reports:: Arrhythmia, Asthma, Atrial Fibrillation, Congestive Heart Failure, Chronic Obstructive Pulmonary Disease (COPD), Congenital Heart Disease, Hyperlipidemia, Hypertension, Palpitations, Transient Ischemic Attacks (TIA) Denies:: Cancer, Diabetes Mellitus Type 1, Diabetes Mellitus Type 2, Home Oxygen, Internal Pacemaker, MRSA, Seizures *Have you ever received a pneumonia vaccine?: Yes *Have you received a flu vaccine this season?: Yes Other Medical History: Reports: Anemia, Arthritis Anesthesia experience/problems:: None Laterality Cases: Bilateral: Other Other Surgeries: Yes: No Previous Surgery, Appendectomy, Cardiac Catheterization (08/21/20), Colonoscopy, Coronary Stent, Hernia Repair, Other (back surgery). No: Pacemaker Amputation: No Fractures: No - *Social History Smoking Status: Never smoker Tobacco Type: cigarettes # Packs/Day (cigarettes): 1 #Yrs smoked (if former smoker): 39 Alcohol Intake: never Alcohol Intake Frequency:: other Substance Use Type: denies use *Occupational Status:: disabled Housing: house Household Members: spouse *Travel in the last 8 weeks: None Family Hx:: Hyperlipidemia, Hypertension
[2020-09-23 07:15] LABS: Chloride 109 mmol/L (98-107); Sodium 141 mmol/L (136-145)
[2020-09-23 07:16] LABS: Potassium 3.8 mmoL/L (3.5-5.1)
--- NOTE | 2020-09-23 07:16 | PC.NURSE ---
PT OFF FLOOR AT THIS TIME, TO OR FOR COLONOSCOPY.
[2020-09-23 07:18] LABS: Alanine Aminotransferase 17 U/L (12-78); Albumin Level 3.7 g/dl (3.5-5.0); Albumin/Globulin Ratio 1.2 (1.1-1.8); Alkaline Phosphatase 82 U/L (38-126); Anion Gap 12.8 mEq/L (5-15); Aspartate Amino Transferase 28 U/L (17-59); Bilirubin,Total 0.5 mg/dl (0.2-1.3); Blood Urea Nitrogen 28 mg/dl (9-20); Calcium 9.3 mg/dl (8.4-10.2); Carbon Dioxide 23 mmol/L (22.0-30.0); Creatinine Clearance Estimated 97 mL/min (50-200); Estimated Glomerular Filt Rate 60 ml/min (>60); GFR (African American) 72 ML/MIN (>60); Globulin 3.2 g/dL (1.3-3.2); Glucose 130 mg/dl (74-100); Magnesium 2.3 mg/dl (1.6-2.3); Total Protein,Serum 6.9 g/dl (6.3-8.2)
--- NOTE | 2020-09-23 08:18 | ECG_ITS ---
APPROVED REPORT Exam: Resting ECG HR:138 bpm ECG Measurements Heart Rate 138 AXES QRSd 128 QRS -72 QT 372 T 49 QTc 563 Conclusion Atrial fibrillation with variable conduction and left bundle branch block Abnormal ECG Electronically signed by : Henrry Vegas, 09/24/2020 17:51:18
--- NOTE | 2020-09-23 08:34 | SUR.OPER ---
Patient in cathlab at this time
[2020-09-23 08:35] LABS: ABG PH 7.14 mmol/L (7.35-7.45)
[2020-09-23 08:36] LABS: ABG Base Excess -6.4 mmol/L (-2.4-2.3); ABG Oxygen Saturation 100 % (90-100); ABG PCO2 69.2 mmhg (35.0-45.0); ABG PO2 312.6 mmhg (80-100); ABG TCO2 25.1 mmhg (23-27); Allen's Test Patient Unable; Oxygen 100% %; Source Left Radial
--- NOTE | 2020-09-23 08:37 | HMH.SCOPE ---
- Procedure: Date: 09/23/20 Patient Date of :: 1950 Procedure Performed:: Colonoscopy (aborted secondary to severe bradycardia/cardiac arrest) Indications:: Melena/anemia Performing Provider:: David Loredo MD Referring Provider:: . Sedation:: Monitored anesthesia care Procedure:: After informed consent was obtained the patient was taken to the endoscopy suite. Sedation ensued after the patient was transferred to the left lateral decubitus position. Digital rectal exam revealed mild hemorrhoidal tags. The colonoscope was placed in position. Bowel prep was fairly limited. Scattered diverticulosis (worse in sigmoid) noted. Fairly large polyps in the sigmoid/left colon were encountered and the intention was to remove these as the colonoscope was removed. A small cecal polyp and a small right colon polyp were excised with cold biopsy forceps. After this was completed the patient developed severe bradycardia. The colonoscope was immediately removed. The code team was immediately called and initiated treatment. Please see separate report for detail. The patient was initially stabilized and transferred immediately to the cardiac catheterization suite. Findings:: Polyps as stated above. Procedure aborted secondary to bradycardia/cardiac arrest. Specimens:: Small cecal polyp and right colonic polyp removed. Remaining polyps not removed. Recommendations:: Awaiting patient stabilization Complications:: Bradycardia/cardiac arrest Estimated blood obtained (mL): 1
--- NOTE | 2020-09-23 08:51 | HMH.RR ---
Acute Rapid Response Note - Subjective Date Responded: 09/23/20 Time Responded: 07:30 Provider Note: pt in endo lab with code blue - pt with acute letty rhythm and then episode of v tach with defib and then responded to acls protocol and was intubated by anesthesia and went to veterinarian laboratory animal care - see code sheet - Objective Findings: Vital Signs - Last 4 Hours Temperature 97.9 F 09/23/20 04:00 Temperature Source Oral 09/23/20 04:00 Pulse Rate 79 09/23/20 04:00 Respiratory Rate 17 09/23/20 04:00 TAR Vitals Timing 1 Hour Post Infusion 09/22/20 05:51 Blood Pressure 122/67 09/23/20 04:00 Blood Pressure Mean 85 09/23/20 04:00 Blood Pressure Source Automatic Cuff 09/23/20 04:00 Blood Pressure Position Supine 09/23/20 04:00 02 Sat by Pulse Oximetry 97 09/23/20 04:00 Oxygen Delivery Method 09/23/20 07:30 Oxygen Flow Rate (LPM) 4 09/23/20 07:30 Lab Results for Past 12 Hours 09/23/20 08:15: Specimen Source Left radial, O2 % 100%, ABG pH 7.14 L*, ABG pCO2 69.2 H, ABG pO2 312.6 H, ABG HCO3 23.0, ABG Total CO2 25.1, ABG O2 Saturation 100, ABG Base Excess -6.4 L, Ilir Test Patient unable 09/23/20 06:42: Sodium 141, Potassium 3.8, Chloride 109 H, Carbon Dioxide 23, Anion Gap 12.8, BUN 28 H D, Creatinine 1.20, Estimated Creat Clear 97, Estimated GFR 60, Est GFR ( Amer) 72 D, Glucose 130 H, Calcium 9.3, Magnesium 2.3, Total Bilirubin 0.5, AST 28, ALT 17, Alkaline Phosphatase 82, Total Protein 6.9, Albumin 3.7, Globulin 3.2, Albumin/Globulin Ratio 1.2 09/23/20 06:42: WBC 12.2 H, RBC 2.98 L, Hgb 9.5 L, Hct 28.5 L, MCV 95.7 H, MCH 32.0 H, MCHC 33.4, RDW 17.9 H, Plt Count 180, MPV 8.3, Neut % (Auto) 84.9 H, Lymph % (Auto) 10.4, [place] % (Auto) 4.3, Eos % (Auto) 0.3, Baso % (Auto) 0.1, Neut # (Auto) 10.3 H, Lymph # (Auto) 1.3, [place] # (Auto) 0.5, Eos # (Auto) 0.0, Baso # (Auto) 0.0 09/22/20 21:09: POC Glucose 146 H - ECG Data Tracing #1 Arrhythmias present: sinus tach, other Ischemic changes: non-specific ST-T wave changes Rapid Response Exam - General General appearance: alert, other (nonresponsive) - Head Head exam: atraumatic - Eye Eye exam: Present: other (nonresp pupils ) - ENT ENT exam: Present: other (intubated ) - Neck Neck exam: Present: trachea midline - Respiratory Respiratory exam: Present: respiratory distress - Cardiovascular Cardiovascular exam: Present: tachycardia, other (pulse only) - Abdominal Exam Abdominal exam: Present: soft - Extremities Exam Extremities exam: Present: pedal edema, joint swelling - Neurological Exam Neurological exam: Present: other (obtunded w/o focal changes ) - Skin Skin exam: Absent: rash RR Procedures/Assess/Plan - Physician Consults Physician Consulted: nayely (1) Cardiopulmonary arrest with successful resuscitation Status: Acute - Assessment and plan all Dx Assessment and Plan for all problems:: was improved with meds and went to veterinarian laboratory animal care
[2020-09-23 08:55] LABS: Microscopic, Urine URINE MICROSCOPIC (MICROSCOPIC)
[2020-09-23 08:58] LABS: Appearance,Urine CLEAR (Clear); Bilirubin,Urine Negative (Negative); Blood, Urine TRACE-I (Negative); Color,Urine YELLOW (Yellow); Glucose,Urine (UA) Negative (Negative); Ketones,Urine Negative (Negative); Leukocyte Esterase,Urine Negative (Negative); Nitrate,Urine Negative (Negative); Protein,Urine 2+ (Negative); Specific Gravity, Urine >= 1.030 (1.005-1.030); Urobilinogen,Urine 0.2 EU/dl (0.2)
[2020-09-23 09:07] LABS: Squamous Epithelial Cell,Urine Occasional #/hpf (0-5)
[2020-09-23 09:11] LABS: ABG Base Excess -5.1 mmol/L (-2.4-2.3); ABG HCO3 21.7 mmhg (22.0-26.0); ABG Oxygen Saturation 100 % (90-100); ABG PCO2 48.1 mmhg (35.0-45.0); ABG PH 7.27 mmol/L (7.35-7.45); ABG PO2 503.7 mmhg (80-100); ABG TCO2 23.2 mmhg (23-27); Oxygen 100 %; PEEP 5; Tidal Volume 450; Vent Rate 18
--- NOTE | 2020-09-23 10:04 | HMH.PNCARD ---
Subjective Date: 09/23/20 Time: 09:00 Principal diagnosis: GI Bleed Interval history: 70 year old -Chinese male admitted to [facility] with worsening lower extremity pain and swelling 1-2 days ago. Upon this admission it was noted that patient was positive for stool Hemoccult. Patient reported no active bleeding noted. H&H had noted to have dropped since last hospital discharge. Patient underwent upper GI scope yesterday which revealed no source for the bleeding. Patient was undergoing colonoscopy this a.m. when he went into cardiac arrest. Patient became very bradycardic then ventricular tachycardia. ACLS protocol was followed. See code sheet for details. Patient was intubated at that time. Patient remains intubated patient did regain pulse. Patient underwent immediate and emergent left heart catheterization accessing the right radial. Patient stents were noted and no intervention was needed. Patient also has history of Paroxysmal atrial fibrillation. Patient has been in sinus rhythm with occasional PACs and PVCs. Plavix was restarted yesterday. Aspirin, Brilinta and Eliquis have been stopped. Discussed plan of care with Dr. Smith. Orders received from Dr. Smith. Patient remained stable at this time. Hopefully patient can start to be weaned off the ventilator. Please notify cardiology of any changes in patient status. Thank you for allowing cardiology to participate in the care of this patient. Exam Vital signs and Labs for Last 24 Hours: Temp Pulse Resp BP Pulse Ox 97.9 F 79 17 122/67 97 09/23/20 04:00 09/23/20 04:00 09/23/20 04:00 09/23/20 04:00 09/23/20 04:00 Laboratory Results - last 24 hr 09/22/20 06:44: Hgb 9.4 L D, RBC Morphology Normal 09/22/20 21:09: POC Glucose 146 H 09/23/20 06:42: WBC 12.2 H, RBC 2.98 L, Hgb 9.5 L, Hct 28.5 L, MCV 95.7 H, MCH 32.0 H, MCHC 33.4, RDW 17.9 H, Plt Count 180, MPV 8.3, Neut % (Auto) 84.9 H, Lymph % (Auto) 10.4, [place] % (Auto) 4.3, Eos % (Auto) 0.3, Baso % (Auto) 0.1, Neut # (Auto) 10.3 H, Lymph # (Auto) 1.3, [place] # (Auto) 0.5, Eos # (Auto) 0.0, Baso # (Auto) 0.0 09/23/20 06:42: Sodium 141, Potassium 3.8, Chloride 109 H, Carbon Dioxide 23, Anion Gap 12.8, BUN 28 H D, Creatinine 1.20, Estimated Creat Clear 97, Estimated GFR 60, Est GFR ( Amer) 72 D, Glucose 130 H, Calcium 9.3, Magnesium 2.3, Total Bilirubin 0.5, AST 28, ALT 17, Alkaline Phosphatase 82, Total Protein 6.9, Albumin 3.7, Globulin 3.2, Albumin/Globulin Ratio 1.2 09/23/20 08:15: Specimen Source Left radial, O2 % 100%, ABG pH 7.14 L*, ABG pCO2 69.2 H, ABG pO2 312.6 H, ABG HCO3 23.0, ABG Total CO2 25.1, ABG O2 Saturation 100, ABG Base Excess -6.4 L, Ilir Test Patient unable 09/23/20 08:43: Urine Color Yellow, Urine Appearance Clear, Urine pH 6.0, Ur Specific [place] >= 1.030, Urine Protein 2+, Urine Glucose (UA) Negative, Urine Ketones Negative, Urine Blood Trace-i, Urine Nitrate Negative, Urine Bilirubin Negative, Urine Urobilinogen 0.2, Ur Leukocyte Esterase Negative, Urine RBC 3-5, Urine WBC 3-5, Ur Squamous Epith Cells Occasional, Urine Bacteria None 09/23/20 08:55: O2 % 100, ABG pH 7.27 L, ABG pCO2 48.1 H, ABG pO2 503.7 H, ABG HCO3 21.7 L, ABG Total CO2 23.2, ABG O2 Saturation 100, ABG Base Excess -5.1 L, Vent Rate 18, Tidal Volume 450, PEEP 5 I & O for Last 24 hours: Intake & Output 09/20/20 09/21/20 09/22/20 09/23/20 23:59 23:59 23:59 23:59 Intake Total 0 100 1756 / 175 960 / 960 Output Total 450 / 450 Balance 0 100 1755 / 175 510 / 510 Weight 265 lb 7 oz 266 lb 12.149 oz 266 lb 12 oz - Constitutional severe distress, obese, chronically ill appearing - *Routine HEENT Exam Head: Present: normocephalic ENT: Present: mucous membranes moist - *Routine Neck Exam Present: supple, normal carotid upstroke. Absent: full ROM, JVD, carotid bruit, lymphadenopathy - *Routine Respiratory Exam Present: patient mechanically ventilated, CTA bilaterally. Absent: wheezes, crackles
--- NOTE | 2020-09-23 10:22 | HMH.ACPN2 ---
Internal Medicine - PN: Subj *Date: 09/23/20 *Time: 18:28 Interval history: Patient did well overnight and was n.p.o. for colonoscopy this morning. Hemodynamically stable and normal sinus rhythm. Taken to endoscopy suite this morning with no issues initially. [place] through his colonoscopy, patient had an episode of bradycardia and coded. Went into cardiac arrest necessitating ACLS including chest compressions, electric shock, epinephrine. Patient was intubated during code. ROSC was achieved. See code note for full details. Patient was subsequently taken to the [facility], coronary stent widely patent. Arterial line placed. Patient transferred back to the floor on a ventilator. Initially had mixed metabolic and respiratory acidosis that promptly resolved/responded to ventilatory adjustment and improvement in blood pressure after code. Patient was extubated by lunchtime with normalization of his blood gas. Required 2 doses of Versed as needed to sedate him for tolerance of ventilator. Prior to extubation was alert, following commands, breathing spontaneously. Has transitioned well this afternoon from 50% Ventimask to 2 L nasal cannula. Alert and oriented on afternoon rounds. Continues to have diffuse chest pain, lungs surprisingly clear on exam. Initiated amiodarone bolus and drip due to atrial fibrillation noted after cardiac arrest. Family kept up-to-date and at bedside through portion of his code as well as after patient returned to [facility] floor. Passed bedside swallow, initiated on diet this evening. Denies nausea or vomiting. Exam Vital signs and Labs for Last 24 Hours: Temp Pulse Resp BP Pulse Ox 97.9 F 79 17 122/67 97 09/23/20 04:00 09/23/20 04:00 09/23/20 04:00 09/23/20 04:00 09/23/20 04:00 Laboratory Results - last 24 hr 09/22/20 06:44: Hgb 9.4 L D, RBC Morphology Normal 09/22/20 21:09: POC Glucose 146 H 09/23/20 06:42: WBC 12.2 H, RBC 2.98 L, Hgb 9.5 L, Hct 28.5 L, MCV 95.7 H, MCH 32.0 H, MCHC 33.4, RDW 17.9 H, Plt Count 180, MPV 8.3, Neut % (Auto) 84.9 H, Lymph % (Auto) 10.4, [place] % (Auto) 4.3, Eos % (Auto) 0.3, Baso % (Auto) 0.1, Neut # (Auto) 10.3 H, Lymph # (Auto) 1.3, [place] # (Auto) 0.5, Eos # (Auto) 0.0, Baso # (Auto) 0.0 09/23/20 06:42: Sodium 141, Potassium 3.8, Chloride 109 H, Carbon Dioxide 23, Anion Gap 12.8, BUN 28 H D, Creatinine 1.20, Estimated Creat Clear 97, Estimated GFR 60, Est GFR ( Amer) 72 D, Glucose 130 H, Calcium 9.3, Magnesium 2.3, Total Bilirubin 0.5, AST 28, ALT 17, Alkaline Phosphatase 82, Total Protein 6.9, Albumin 3.7, Globulin 3.2, Albumin/Globulin Ratio 1.2 09/23/20 08:15: Specimen Source Left radial, O2 % 100%, ABG pH 7.14 L*, ABG pCO2 69.2 H, ABG pO2 312.6 H, ABG HCO3 23.0, ABG Total CO2 25.1, ABG O2 Saturation 100, ABG Base Excess -6.4 L, Ilir Test Patient unable 09/23/20 08:43: Urine Color Yellow, Urine Appearance Clear, Urine pH 6.0, Ur Specific [place] >= 1.030, Urine Protein 2+, Urine Glucose (UA) Negative, Urine Ketones Negative, Urine Blood Trace-i, Urine Nitrate Negative, Urine Bilirubin Negative, Urine Urobilinogen 0.2, Ur Leukocyte Esterase Negative, Urine RBC 3-5, Urine WBC 3-5, Ur Squamous Epith Cells Occasional, Urine Bacteria None 09/23/20 08:55: O2 % 100, ABG pH 7.27 L, ABG pCO2 48.1 H, ABG pO2 503.7 H, ABG HCO3 21.7 L, ABG Total CO2 23.2, ABG O2 Saturation 100, ABG Base Excess -5.1 L, Vent Rate 18, Tidal Volume 450, PEEP 5 I & O for Last 24 hours: Intake & Output 09/20/20 09/21/20 09/22/20 09/23/20 23:59 23:59 23:59 23:59 Intake Total 0 / 100 1756 / 1756 960 / 960 Output Total 450 / 450 Balance 0 / 100 1756 / 1756 510 / 510 Weight 120.4 kg 121 kg 120.996 kg - Constitutional mild distress, obese - *Routine HEENT Exam Head: Present: normocephalic Eye: Present: EOMI, PERRL ENT: Present: mucous membranes moist - *Routine Neck Exam Present: supple. Absent: lymphadenopathy - Routine Chest/Breast/Axilla Exam Chest wall: Presen
--- NOTE | 2020-09-23 12:14 | SUR.OPER ---
0750- Asystole on monitor, compressions started, code blue initiated 0753- Pt intubated- oxygenated via ambu bag- compressions continued 0758- Epinephrine given as ordered 0800- V-tach on monitor-shock administered 0801- Loss of femoral pulse-compressions restarted 0803- Epinephrine given as ordered 0804- No pulse-compressions continued 0805- Atropine given as ordered 0806- No pulse-compressions continued 0808- Epinephrine given as ordered 0808- Dr Tam contacted 0809- No pulse-compressions continued 0810- No color change noted on capnography-pt oxygenated via bag mask-preparing to reintubate 0812- 7.5 ET tube inserted via glidascope, 22 at lipline, color change noted on capnography 0812- Femoral pulse present, rhythm present 0813- No pulse, compression resumed 0813- Epinephrine given as ordered 0814- Pulse present, rhythm noted on monitor 0816- ABG's obtained 0816- Pulse remains present 0817- EKG obtained 0817- Levofed drip started at 30ml/hr 0818- Attempting additional IV access 0819- Dr Tam at bedside 0820- ABG results given to Dr Clarke 0821- Dr Smith sent EKG to review 0822- Sodium Bicarbonate administered as ordered 0825- OG tube inserted and connected to suction 0828- Pulse remains present- unable to obtain BP 0828- Dr Loredo attempting femoral central line access 0829- Notified per Dr Smith to transfer Pt to [facility] for cardiac catheterization and central line placement 0831- Pt transferred to [facility] per bed accompanied per [facility] staff. Oxygenation and cardiac monitoring continued in transit
[2020-09-23 13:31] LABS: Oxygen 40% %; PEEP 5; Tidal Volume 500; Vent Rate 18
[2020-09-23 13:32] LABS: ABG Base Excess -4.4 mmol/L (-2.4-2.3); ABG HCO3 21.1 mmhg (22.0-26.0); ABG Oxygen Saturation 99 % (90-100); ABG PCO2 38.4 mmhg (35.0-45.0); ABG PH 7.36 mmol/L (7.35-7.45); ABG PO2 127.2 mmhg (80-100); ABG TCO2 22.3 mmhg (23-27)
--- NOTE | 2020-09-23 13:44 | XR_ITS ---
PROCEDURE: XR CHEST PORTABLE CLINICAL HISTORY: post code, extubated. COMPARISON: 09/22/2020 FINDINGS: Heart is mildly enlarged with mild pulmonary vascular congestion. The lungs are clear without infiltrates, suspicious nodules, or pleural effusions. Defibrillator pad overlies the left heart border. No acute bony abnormalities. IMPRESSION: Mild cardiomegaly with mild pulmonary vascular congestion. Dictated by: Kurt Newton MD 09/23/2020 14:06 Kurt Newton MD in OV 09/23/2020 14:06
--- NOTE | 2020-09-23 14:10 | PC.NURSE ---
Amio bolus started. Dr. Tam @ BS.
--- NOTE | 2020-09-23 14:20 | PC.NURSE ---
Amio gtt started @ 1mg/hr (33.3mL/hr) for the next 6hrs. Will decrease rate to 0.5mg/hr @ 2019.
--- NOTE | 2020-09-23 15:38 | PC.NURSE ---
50% venti mask weaned to 2L NC. O2 sat 100% on 2L. Pt A&O.
--- NOTE | 2020-09-23 16:03 | PC.NURSE ---
pt able to swallow sips of water without difficulty
--- NOTE | 2020-09-23 20:05 | PC.NURSE ---
gold color band found and returned to patient, currently on left ring finger.
--- NOTE | 2020-09-23 21:10 | PC.NURSE ---
2020 amiodarone drip decreased to .5 mg (16.6 ml/hr)
--- NOTE | 2020-09-23 23:51 | PC.NURSE ---
patient has refused to wear armboard with right radial artline due to comfort and activity limitation. waveform damped prior to removing armboard. automatic blood pressure cuff set to take q 1 hr
[2020-09-24] VITALS (37 sets, daily range): BP systolic 100–156; BP diastolic 49–85; PULSE 47–78; RESP 11–28; TEMP 36.3–36.8; O2SAT 86–100; BMI 38.4
[2020-09-24 05:43] LABS: Basophils % 0.1 % (0.1-2.0); Eosinophils # 0.1 K/mm3 (0.0-0.4); Eosinophils % 1.8 % (0.1-12.0); Lymphocytes # 1.2 K/mm3 (0.7-4.5); Mean Corpuscular HGB Conc 33.2 g/dL (31.8-35.4); Mean Corpuscular Hemoglobin 31.9 pg (27.0-31.2); Mean Corpuscular Volume 96.2 fl (80-94); Mean Platelet Volume 8.7 fl (7.4-10.4); Monocytes # 0.4 K/mm3 (0.1-1.0); Monocytes % 5.7 % (1.7-9.3); Neutrophils # 5.8 K/mm3 (1.8-7.8); Neutrophils % 76.3 % (37.0-80.0); Platelet Count 159 K/mm3 (142-424); Red Blood Count 2.42 M/mm3 (4.60-6.20); Red Cell Distribution Width 17.9 % (11.5-17.5); White Blood Count 7.6 K/mm3 (4.8-10.8)
[2020-09-24 05:45] LABS: Hematocrit 23.3 % (42.0-52.0); Hemoglobin 7.7 g/dL (14.1-18.0)
[2020-09-24 05:52] LABS: Chloride 107 mmol/L (98-107); Potassium 3.4 mmoL/L (3.5-5.1); Sodium 140 mmol/L (136-145)
[2020-09-24 05:54] LABS: Alanine Aminotransferase 75 U/L (12-78); Aspartate Amino Transferase 58 U/L (17-59); Blood Urea Nitrogen 22 mg/dl (9-20); Creatinine Clearance Estimated 99 mL/min (50-200); Estimated Glomerular Filt Rate 60 ml/min (>60); GFR (African American) 72 ML/MIN (>60)
[2020-09-24 05:55] LABS: Albumin Level 2.8 g/dl (3.5-5.0); Alkaline Phosphatase 70 U/L (38-126); Anion Gap 11.4 mEq/L (5-15); Bilirubin,Total 0.3 mg/dl (0.2-1.3); Calcium 8.5 mg/dl (8.4-10.2); Carbon Dioxide 25 mmol/L (22.0-30.0); Globulin 2.9 g/dL (1.3-3.2); Glucose 119 mg/dl (74-100); Magnesium 2.1 mg/dl (1.6-2.3); Total Protein,Serum 5.7 g/dl (6.3-8.2)
--- NOTE | 2020-09-24 06:05 | PC.NURSE ---
dr. claros notified of critical h/h and current vs. new order to be sure patient has been t&c for [address] marcelo will decide to transfuse during rounds.
--- NOTE | 2020-09-24 07:33 | HMH.ACPN2 ---
Internal Medicine - PN: Subj *Date: 09/24/20 *Time: 07:33 Interval history: Events of yesterday noted. Patient has made a remarkable bounce back, extubated overnight, minimal oxygen requirement, has chest pain from where he had CPR compressions but otherwise is breathing easily. Notes that the original reason he came to the hospital, his left foot swelling is still occurring and he has some gouty arthritis pain. Denies chest pain or dyspnea at this point. Exam Vital signs and Labs for Last 24 Hours: Temp Pulse Resp BP Pulse Ox 98.2 F 65 20 109/54 L 99 09/24/20 04:00 09/24/20 06:00 09/24/20 06:00 09/24/20 06:00 09/24/20 06:00 Laboratory Results - last 24 hr 09/21/20 21:20: Crossmatch (AHG) See Detail 09/23/20 08:15: Specimen Source Left radial, O2 % 100%, ABG pH 7.14 L*, ABG pCO2 69.2 H, ABG pO2 312.6 H, ABG HCO3 23.0, ABG Total CO2 25.1, ABG O2 Saturation 100, ABG Base Excess -6.4 L, Ilir Test Patient unable 09/23/20 08:43: Urine Color Yellow, Urine Appearance Clear, Urine pH 6.0, Ur Specific [place] >= 1.030, Urine Protein 2+, Urine Glucose (UA) Negative, Urine Ketones Negative, Urine Blood Trace-i, Urine Nitrate Negative, Urine Bilirubin Negative, Urine Urobilinogen 0.2, Ur Leukocyte Esterase Negative, Urine RBC 3-5, Urine WBC 3-5, Ur Squamous Epith Cells Occasional, Urine Bacteria None 09/23/20 08:55: O2 % 100, ABG pH 7.27 L, ABG pCO2 48.1 H, ABG pO2 503.7 H, ABG HCO3 21.7 L, ABG Total CO2 23.2, ABG O2 Saturation 100, ABG Base Excess -5.1 L, Vent Rate 18, Tidal Volume 450, PEEP 5 09/23/20 13:06: Specimen Source art line, O2 % 40%, ABG pH 7.36, ABG pCO2 38.4, ABG pO2 127.2 H, ABG HCO3 21.1 L, ABG Total CO2 22.3 L, ABG O2 Saturation 99, ABG Base Excess -4.4 L, Vent Rate 18, Tidal Volume 500, PEEP 5 09/24/20 05:35: WBC 7.6 D, RBC 2.42 L, Hgb 7.7 L*, Hct 23.3 L*, MCV 96.2 H, MCH 31.9 H, MCHC 33.2, RDW 17.9 H, Plt Count 159, MPV 8.7, Neut % (Auto) 76.3, Lymph % (Auto) 16.0, [place] % (Auto) 5.7, Eos % (Auto) 1.8, Baso % (Auto) 0.1, Neut # (Auto) 5.8, Lymph # (Auto) 1.2, [place] # (Auto) 0.4, Eos # (Auto) 0.1, Baso # (Auto) 0.0 09/24/20 05:35: Sodium 140, Potassium 3.4 L, Chloride 107, Carbon Dioxide 25, Anion Gap 11.4, BUN 22 H, Creatinine 1.20, Estimated Creat Clear 99, Estimated GFR 60, Est GFR ( Amer) 72, Glucose 119 H, Calcium 8.5, Magnesium 2.1, Total Bilirubin 0.3, AST 58 D, ALT 75 D, Alkaline Phosphatase 70, Total Protein 5.7 L, Albumin 2.8 L D, Globulin 2.9, Albumin/Globulin Ratio 1.0 L I & O for Last 24 hours: Intake & Output 09/21/20 09/22/20 09/23/20 09/24/20 11:59 11:59 11:59 11:59 Intake Total 656 / 656 2060 / 2060 997 / 997 Output Total 450 / 450 1450 / 1450 Balance 656 / 656 1610 / 1610 -453 / -453 Weight 266 lb 12.149 oz 266 lb 12 oz 274 lb 5 oz Microbiology Reports for the Last 24 Hours: Microbiology 09/23/20 10:20 Sputum - Endotracheal Tube Aspirate Gram Stain - Final Narrative: Heart rate in the upper 50s/low 60s remains in atrial fibrillation. Blood pressure acceptable. Patient's lungs are clear, has a little bit of pain in the chest when he takes a deep breath. Heart rate are regular. Abdomen soft, right leg looks really good in regards to fluid status. Left leg is swollen around the foot and ankle but this seems more related to gouty swelling and then fluid overload. Assessment and Plan (1) Cardiopulmonary arrest with successful resuscitation Status: Acute Category: Medical Code(s): I46.9 - Cardiac arrest, cause unspecified (2) Blood loss anemia Status: Acute Category: Medical Code(s): D50.0 - Iron deficiency anemia secondary to blood loss (chronic) (3) CAD (coronary artery disease) Status: Chronic Qualifiers: Category: Medical Code(s): I25.10 - Atherosclerotic heart disease of [place] coronary artery without angina pectoris (4) Chronic atrial fibrillation Status: Chronic Category: Medical Code(s): I48.20 - Chronic atrial fibrillati
--- NOTE | 2020-09-24 08:39 | HMH.PNCARD ---
Subjective Date: 09/24/20 Time: 08:45 Principal diagnosis: GI Bleed Interval history: 70 year old -Central African male admitted to [facility] with original admission for lower extremity pain. Upon this admission it was noted that patient was positive for stool Hemoccult. Patient reported no active bleeding noted. Patient underwent upper GI scope yesterday which revealed no source for the bleeding. Patient was undergoing colonoscopy yesterday when he went into cardiac arrest. Patient underwent immediate and emergent left heart catheterization accessing the right radial. Patient has history of Parosxymal Atrial fib. Patient has rebounded from cardiac events of yesterday. Patient convert into atrial fibrillation with frequent PVCs after cardiac arrest. Patient was started on amiodarone drip to hopefully convert patient back into sinus rhythm. Amiodarone drip continues to be infusing. This is being maintained by PCP. Vital signs are stable. Patient is alert and oriented x3. Patient does complain of some chest soreness this is probably due to compressions and defibrillation. Patient does have some shortness of breath. Patient is on oxygen by 2 L of nasal cannula. Lower extremities noted with edema. PCP is currently treating patient for gout. Patient is currently on no anticoagulation therapy at this time due to the GI bleed. H&H were noted as low this morning. PCP has ordered 2 units of packed red blood cells. ANGIOGRAPHIC RESULTS The left main artery Normal The left anterior descending artery Has a stent in the proximal segment which is widely patent free of thrombosis with excellent proximal distal transitioning. [place]-3 flow was present down the vessel The circumflex artery Mild nonflow limiting luminal irregularities nothing greater than 10% The right coronary artery Is codominant and has mid vessel 40% stenosis The DUARTE ventriculogram reveals Reduced ejection fraction with dilated ventricle. Ejection fraction estimated 35% The left ventricular end-diastolic pressure 20 mmHg IMPRESSION Widely patent stent as described above No change in coronary disease since recent stenting No primary cardiogenic etiology for patient's clinical demise PLAN 1. Continue supportive care Thank you for allowing cardiology to participate in the care of this patient. Recommendations: I agree pt should not go home on triple AC therapy. Without DAPT, patient has a 1% stent thrombosis risk, which is significantly lower than his risk for CVA without AC and remaining in afib. In patients on triple AC therapy, studies have shown it is the ASA which causes most GIBs. Plavix alone, or in combination with ASA, is still not appropriately protective against an embolic event from afib. If patient is unable to tolerate oral eliquis prior to d/c home, he should be converted into sinus rhythm Convert amio gtt to PO load and await JACQUELINE this Tuesday for planned cardioversion, amio po 400 mg bid Pt's CHADSVASC score is at least 4 which places patient at a high risk for embolism. I recommend sinus rhythm if at all possible in order to reduce CVA risk prior to his d/c home. Continue entresto and coreg for sys CHF Scribed by Dr. Smith. Exam Vital signs and Labs for Last 24 Hours: Temp Pulse Resp BP Pulse Ox 98.2 F 65 20 109/54 L 99 09/24/20 04:00 09/24/20 06:00 09/24/20 06:00 09/24/20 06:00 09/24/20 06:00 Laboratory Results - last 24 hr 09/21/20 21:20: Blood Type O Negative, Antibody Screen Negative, Crossmatch (AHG) See Detail 09/23/20 08:43: Urine Color Yellow, Urine Appearance Clear, Urine pH 6.0, Ur Specific [place] >= 1.030, Urine Protein 2+, Urine Glucose (UA) Negative, Urine Ketones Negative, Urine Blood Trace-i, Urine Nitrate Negative, Urine Bilirubin Negative, Urine Urobilinogen 0.2, Ur Leukocyte Esterase Negative, Urine RBC 3-5, Urine WBC 3-5, Ur Squamous Epith Cells Occasional, Urine Bacteria None 09/23/20 08:55: O2 % 10
--- NOTE | 2020-09-24 13:42 | PC.NURSE ---
art line discontinued
--- NOTE | 2020-09-24 14:02 | PC.NURSE ---
Amio gtt turned OFF. Dr. Smith @ BS and ordered Amiodarone po 400mg TID. He reviewed POC with pt and .
[2020-09-24 15:29] LABS: Basophils % 0.2 % (0.1-2.0); Eosinophils # 0.1 K/mm3 (0.0-0.4); Eosinophils % 1.5 % (0.1-12.0); Hematocrit 27.9 % (42.0-52.0); Lymphocytes # 1.3 K/mm3 (0.7-4.5); Lymphocytes % 17.2 % (10-50); Mean Corpuscular Hemoglobin 31.4 pg (27.0-31.2); Mean Corpuscular Volume 92.4 fl (80-94); Monocytes # 0.4 K/mm3 (0.1-1.0); Monocytes % 4.8 % (1.7-9.3); Neutrophils # 5.8 K/mm3 (1.8-7.8); Neutrophils % 76.3 % (37.0-80.0); Platelet Count 157 K/mm3 (142-424); Red Blood Count 3.02 M/mm3 (4.60-6.20); White Blood Count 7.6 K/mm3 (4.8-10.8)
[2020-09-24 15:41] LABS: Hemoglobin 9.6 g/dL (14.1-18.0)
--- NOTE | 2020-09-24 16:15 | PC.NURSE ---
Pt reports that he is constipated. LBM yesterday (large). Updated Dr. Vegas, who ordered Dulcolax tabs daily and to discontinue murphy catheter. Pt showered and is now sitting in chair. O2 @ 2L NC. Continues in Afib on tele.
--- NOTE | 2020-09-24 16:29 | PC.NURSE ---
pt and informed me that they are agreeable to Dr. Smith performing a JACQUELINE on Tuesday. Pt reports that he has had this procedure in the past. Will pass along in report at shift change. Consent not signed @ this time.
--- NOTE | 2020-09-24 18:42 | PC.NURSE ---
RA ESTEVES 95% RETURN PT TO 2LPM N/C
[2020-09-25] VITALS (14 sets, daily range): BP systolic 114–150; BP diastolic 71–85; PULSE 50–85; RESP 18–20; TEMP 36.5–36.9; O2SAT 96–100; BMI 38.4
--- NOTE | 2020-09-25 06:56 | P.PN_ITS ---
Subjective Narrative: The patient states that he feels okay but still little sore . Progress Note: A&P (1) Cardiopulmonary arrest with successful resuscitation Status: Acute (2) Blood loss anemia Status: Acute (3) CAD (coronary artery disease) Status: Chronic (4) Chronic atrial fibrillation Status: Chronic (5) Systolic CHF Status: Chronic (6) Obesity (BMI 30-39.9) Status: Chronic (7) Colon polyps Status: Acute Assessment and Plan for All Diagnoses:: The patient's colonoscopy was both limited and aborted. Fairly large/complex polyps were seen during entry with plans to remove them during the procedure. No sign of definitive hemorrhage was noted; however, significant visualization limitations existed. A few small adenomatous polyps from the right colon were removed prior to the need to abort the procedure. If and when the patient is optimized medically, repeat colonoscopy is warranted. If no source of hemorrhage is noted on this exam...small bowel follow- through/capsule endoscopy should be considered. Exam Vital signs and Labs for Last 24 Hours: Temp Pulse Resp BP Pulse Ox 98 F 71 18 147/80 H 99 09/25/20 04:00 09/25/20 06:00 09/25/20 06:00 09/25/20 06:00 09/25/20 06:00 Laboratory Results - last 24 hr 09/21/20 21:20: Blood Type O Negative, Antibody Screen Negative, Crossmatch (AHG) See Detail 09/24/20 15:00: WBC 7.6, RBC 3.02 L, Hgb 9.6 L D, Hct 27.9 L, MCV 92.4, MCH 31.4 H, MCHC 34.0, RDW 18.0 H, Plt Count 157, MPV 9.0, Neut % (Auto) 76.3, Lymph % (Auto) 17.2, [place] % (Auto) 4.8, Eos % (Auto) 1.5, Baso % (Auto) 0.2, Neut # (Auto) 5.8, Lymph # (Auto) 1.3, [place] # (Auto) 0.4, Eos # (Auto) 0.1, Baso # (Auto) 0.0 I & O for Last 24 hours: Intake & Output 09/22/20 09/23/20 09/24/20 09/25/20 11:59 11:59 11:59 11:59 Intake Total 656 / 656 2059 / 1966 1060 / 1060 Output Total 450 / 450 1800 / 1800 150 / 150 Balance 656 / 656 1610 / 1610 167 / 167 910 / 910 Weight 266 lb 12.149 oz 266 lb 12 oz 274 lb 5 oz 274 lb 5 oz Microbiology Reports for the Last 24 Hours: Microbiology 09/23/20 10:20 Sputum - Endotracheal Tube Aspirate Gram Stain - Final 09/23/20 10:20 Sputum - Endotracheal Tube Aspirate Sputum Culture - Preliminary - Constitutional no acute distress - *Routine Respiratory Exam Absent: respiratory distress - *Routine Neurological Exam Present: alert - Routine Psychiatric Exam Present: normal affect
--- NOTE | 2020-09-25 08:58 | P.PN_ITS ---
Internal Medicine - PN: Subj *Date: 09/25/20 *Time: 08:58 Interval history: Patient did very well overnight, no chest pain, baseline dyspnea, baseline functional status, continues to be ataxic with his walker. Exam Vital signs and Labs for Last 24 Hours: Temp Pulse Resp BP Pulse Ox 97.7 F 71 18 147/80 H 99 09/25/20 07:53 09/25/20 06:00 09/25/20 06:00 09/25/20 06:00 09/25/20 06:00 Laboratory Results - last 24 hr 09/21/20 21:20: Blood Type O Negative, Antibody Screen Negative, Crossmatch (AHG) See Detail 09/24/20 15:00: WBC 7.6, RBC 3.02 L, Hgb 9.6 L D, Hct 27.9 L, MCV 92.4, MCH 31.4 H, MCHC 34.0, RDW 18.0 H, Plt Count 157, MPV 9.0, Neut % (Auto) 76.3, Lymph % (Auto) 17.2, [place] % (Auto) 4.8, Eos % (Auto) 1.5, Baso % (Auto) 0.2, Neut # (Auto) 5.8, Lymph # (Auto) 1.3, [place] # (Auto) 0.4, Eos # (Auto) 0.1, Baso # (Auto) 0.0 I & O for Last 24 hours: Intake & Output 09/22/20 09/23/20 09/24/20 09/25/20 11:59 11:59 11:59 11:59 Intake Total 656 / 656 2059 / 2059 1966 / 1966 1060 / 1060 Output Total 450 / 450 1800 / 1800 150 / 150 Balance 656 / 656 1610 / 1610 167 / 167 910 / 910 Weight 266 lb 12.149 oz 266 lb 12 oz 274 lb 5 oz 274 lb 5 oz Microbiology Reports for the Last 24 Hours: Microbiology 09/23/20 10:20 Sputum - Endotracheal Tube Aspirate Gram Stain - Final 09/23/20 10:20 Sputum - Endotracheal Tube Aspirate Sputum Culture - Preliminary Narrative: Heart rate bradycardic but irregular, abdomen soft, lungs clear, wearing 2 L oxygen. Edema is about the same in the left foot. Gout pain is improving. Right leg continues to be fairly free of edema. Oropharynx clear, neurologically intact Assessment and Plan (1) Cardiopulmonary arrest with successful resuscitation Status: Acute Category: Medical Code(s): I46.9 - Cardiac arrest, cause unspecified (2) Blood loss anemia Status: Acute Category: Medical Code(s): D50.0 - Iron deficiency anemia secondary to blood loss (chronic) (3) CAD (coronary artery disease) Status: Chronic Qualifiers: Category: Medical Code(s): I25.10 - Atherosclerotic heart disease of [place] coronary artery without angina pectoris (4) Chronic atrial fibrillation Status: Chronic Category: Medical Code(s): I48.20 - Chronic atrial fibrillation, unspecified (5) Systolic CHF Status: Chronic Qualifiers: Category: Medical Code(s): I50.20 - Unspecified systolic (congestive) heart failure (6) Obesity (BMI 30-39.9) Status: Chronic Category: Medical Code(s): E66.9 - Obesity, unspecified (7) Colon polyps Status: Acute Category: Medical Code(s): K63.5 - Polyp of colon - Assessment and plan all Dx Assessment and Plan for all problems:: Blood count stabilized. Electrolytes unremarkable. Kidney function improving. Cardiology continue to follow for evaluation for possible cardioversion from atrial fibrillation. No evidence of further bleeding. Check blood counts tomorrow. PT/OT evaluation for evaluation for rehabilitation placement.
--- NOTE | 2020-09-25 09:36 | HMH.OTEV ---
OT Inpatient Evaluation Rehab OT IP Evaluation Start: 09/25/20 08:37 Freq: ONCE Status: Complete Protocol: Document 09/25/20 09:31 LOVELISA (Rec: 09/25/20 09:36 ALEXANDER [id number]) Rehab OT IP Assessment Subjective History *Admission Date: 09/22/20 *Chief complaint: leg pain, melena *History of present illness: Mr. Phillips is a pleasant 70- year-old -[place] male who was admitted a month ago for worsening CHF. Left heart cath performed with LAD stent placement. Significant adjustment to his medications and was sent home with a LifeVest due to decreased ejection fraction from 55% to less than 30% in the span of just a few months. He presented this visit to the ER last night due to worsening left ankle pain. Complains of feeling weak and having black stools as well over the past few weeks. Of note he was discharged on triple therapy with oral anticoagulation, antiplatelet therapy consisting of Brilinta and aspirin. Has been on Protonix daily. Hemoglobin on arrival in the low 7 range. At discharge a month ago hemoglobin 14. Patient was admitted for concern for GI source for his acute blood loss anemia. Imaging performed of his left ankle showed no fractures just soft tissue swelling. Patient does have a history of gout, symptoms consistent with his previous gout flares. On exam this morning, he complains of some weakness, fatigue, left ankle pain and swelling. Denies any nausea, chest pain, shortness of breath. Is currently n.p.o.
--- NOTE | 2020-09-25 10:00 | HMH.PNCARD ---
Subjective Date: 09/25/20 Time: 09:45 Principal diagnosis: GI Bleed Interval history: This is a 70-year-old -[place] gentleman admitted to the hospital for lower extremity pain and found to have a GI bleed. The patient underwent an upper GI as well as a colonoscopy. While he was undergoing the colonoscopy the patient did go into cardiac arrest and had an emergent left cardiac catheterization which required no percutaneous intervention. The patient went back into atrial fibrillation with PVCs following his cardiac arrest. He was started on amiodarone drip and has been converted over to oral amiodarone and maintains rate control at this time. This morning he denies any chest pain or pressure. He denies any shortness of breath. He states that he does have some mild edema in his lower extremity at times but this is much improved. He denies any fever, chills, nausea, vomiting, diarrhea, PND or orthopnea. He states that he is feeling much better. The patient is scheduled to undergo JACQUELINE with cardioversion tomorrow to him get him back in sinus rhythm due to his anemia/GI bleed so he does not have to be on anticoagulation. Exam Vital signs and Labs for Last 24 Hours: Temp Pulse Resp BP Pulse Ox 97.7 F 71 18 147/80 H 99 09/25/20 07:53 09/25/20 06:00 09/25/20 06:00 09/25/20 06:00 09/25/20 06:00 Laboratory Results - last 24 hr 09/21/20 21:20: Blood Type O Negative, Antibody Screen Negative, Crossmatch (AHG) See Detail 09/24/20 15:00: WBC 7.6, RBC 3.02 L, Hgb 9.6 L D, Hct 27.9 L, MCV 92.4, MCH 31.4 H, MCHC 34.0, RDW 18.0 H, Plt Count 157, MPV 9.0, Neut % (Auto) 76.3, Lymph % (Auto) 17.2, [place] % (Auto) 4.8, Eos % (Auto) 1.5, Baso % (Auto) 0.2, Neut # (Auto) 5.8, Lymph # (Auto) 1.3, [place] # (Auto) 0.4, Eos # (Auto) 0.1, Baso # (Auto) 0.0 I & O for Last 24 hours: Intake & Output 09/22/20 09/23/20 09/24/20 09/25/20 23:59 23:59 23:59 23:59 Intake Total 1756 / 1756 1190 / 1190 2797 / 2797 Output Total 1400 / 1400 1000 / 1000 Balance 1756 / 1756 -210 / -210 1797 / 1797 Weight 266 lb 12.149 oz 266 lb 12 oz 274 lb 5 oz 274 lb 5 oz Microbiology Reports for the Last 24 Hours: Microbiology 09/23/20 10:20 Sputum - Endotracheal Tube Aspirate Gram Stain - Final 09/23/20 10:20 Sputum - Endotracheal Tube Aspirate Sputum Culture - Preliminary Narrative: Telemetry strip shows atrial fibrillation with a rate of 74. - Constitutional no acute distress, obese - *Routine HEENT Exam Head: Present: normocephalic, atraumatic Eye: Present: EOMI, PERRL ENT: Present: mucous membranes moist - *Routine Neck Exam Present: supple, full ROM, normal carotid upstroke. Absent: JVD, carotid bruit, lymphadenopathy - *Routine Respiratory Exam Present: CTA bilaterally - *Routine Cardiovascular Exam Present: Normal S1, Normal S2, irregularly irregular. Absent: murmur - *Routine Abdominal Exam Present: soft, normoactive bowel sounds. Absent: tenderness, distended - *Routine Extremities Exam Present: edema (Trace bilateral lower extremity edema), full ROM, pulses intact, normal capillary refill. Absent: cyanosis, clubbing - *Routine Skin Exam Present: intact, warm. Absent: erythema, rash - *Routine Neurological Exam Present: alert, oriented X3, CN II-XII intact. Absent: sensory deficit, motor deficit Progress Note: A&P (1) Cardiopulmonary arrest with successful resuscitation Status: Acute (2) Blood loss anemia Status: Acute (3) CAD (coronary artery disease) Status: Chronic (4) Chronic atrial fibrillation Status: Chronic (5) Systolic CHF Status: Chronic (6) Obesity (BMI 30-39.9) Status: Chronic (7) Colon polyps Status: Acute (8) Renal artery stenosis Status: Acute (9) HTN (hypertension) Status: Acute (10) HLD (hyperlipidemia) Status: Acute (11) Edema of both lower extremities Status: Chronic Assessment and Plan for All Diagnoses:: Plan: 1. Jeanie
--- NOTE | 2020-09-25 13:43 | HMH.PTEV ---
Physical Therapy Evaluation Rehab PT IP Evaluation Start: 09/25/20 08:37 Freq: ONCE Status: Active Protocol: Document 09/25/20 13:35 PWAMANDAAMS (Rec: 09/25/20 13:43 PWAMANDAAMS [id number]) Subjective/History History History This is the initial PT evaluation for Avi Phillips. Pt is a 70 y/o male admitted to [facility] s/p MT during procedure . Pt rpeorts he was using rolling walker for gait prior to admission. Subjective Subjective Pt reports he has COPD Rehab PT IP Eval Objective Appearance Patient Behavior Appropriate,Cooperative Patient Orientation Person,Place,Time Difficulty following instructions none Speech Pattern Clear,Appropriate Ambulation Patient Able to Ambulate Yes Ambulation Observation IP General Gait Pattern Observation Shuffling Step Ambulation Distance (feet) 75 Ambulation Assistive Device Rolling Walker Ambulation Ability Supervision/Stand by,Contact Guard/Hand Hold Balance Ability to Arise Able, uses arms to help Sitting Balance Steady, safe Standing Balance Steady, wide stance Dynamic Sitting Balance Ability Good Dynamic Standing Balance Ability Fair Transfers Chair Transfer Ability Supervision/Stand by Sit to Stand Bed Transfer Ability Supervision/Stand by,Contact Guard/Hand Hold Sit to Stand Chair Transfer Ability Supervision/Stand by,Contact Guard/Hand Hold ROM All Extremities PT ROM Status WFL MMT All Extremities PT MMT WFL Rehab PT IP prob,goals,plan Problems Date of Evaluation: 09/25/20 PT IP Problems Transfers,Gait,Balance,Self care,Safety Rehab Potential Rehab Potential Good Equipment Needs Assistive Devices Rolling / Wheeled Walker Plan PT Intervention Plan Bed Mobility,Transfers,Gait, Balance,Self care,Therapeutic Exercise PT Plan Frequency BID Duration LOS Discharge Goals Bed Transfer Ability Supervision/Stand by Sit to Stand Chair Transfer Ability Supervision/Stand by Ambulation Assistive Device Rolling Walker Ambulation Distance (feet) 75 Discharge Plan PT Discharge Plan pt would benefit from skilled therapy at SNF for cardio- pulmonary rehab and or PT - If pt is
--- NOTE | 2020-09-25 17:31 | PC.NURSE ---
Patient has been up to chair for most of the day and has tolerated well, remains on 2LNC, alert and oriented x4, had large loose BM this shift, vss, no s/s of distress noted, will continue to monitor.
[2020-09-26] VITALS (20 sets, daily range): BP systolic 100–148; BP diastolic 51–98; PULSE 58–93; RESP 16–21; TEMP 36.6–37; O2SAT 2–100; BMI 38.6
--- NOTE | 2020-09-26 02:54 | PC.NURSE ---
He is A&Ox3. Controlled afib on telemetry. He is NPO. He has been incontinent of bowel. He reports rib pain from compressions but refuses pain medications.
--- NOTE | 2020-09-26 06:45 | HMH.GSPN ---
Subjective Patient reports: no new complaints, feels better, bowel movement (He states that his bowel movement was brown and normal ) Narrative: JACQUELINE with cardioversion scheduled for later today Progress Note: A&P (1) Cardiopulmonary arrest with successful resuscitation Status: Acute (2) Blood loss anemia Status: Acute (3) CAD (coronary artery disease) Status: Chronic (4) Chronic atrial fibrillation Status: Chronic (5) Systolic CHF Status: Chronic (6) Obesity (BMI 30-39.9) Status: Chronic (7) Colon polyps Status: Acute (8) Renal artery stenosis Status: Acute (9) HTN (hypertension) Status: Acute (10) HLD (hyperlipidemia) Status: Acute (11) Edema of both lower extremities Status: Chronic Assessment and Plan for All Diagnoses:: Outpatient colonoscopy still warranted when patient medically optimized. Further evaluation to include UGI/SBFT and capsule endoscopy may be necessary. Exam Vital signs and Labs for Last 24 Hours: Temp Pulse Resp BP Pulse Ox 98.1 F 60 18 100/51 L 98 09/26/20 03:42 09/26/20 04:00 09/26/20 03:42 09/26/20 03:42 09/26/20 03:42 I & O for Last 24 hours: Intake & Output 09/23/20 09/24/20 09/25/20 09/26/20 11:59 11:59 11:59 11:59 Intake Total 2059 / 2059 1966 / 1966 1060 / 1060 910 / 910 Output Total 450 / 450 1800 / 1800 150 / 150 850 / 850 Balance 1610 / 1610 167 / 167 910 / 910 60 / 60 Weight 266 lb 12 oz 274 lb 5 oz 274 lb 5 oz 276 lb 1 oz Microbiology Reports for the Last 24 Hours: Microbiology 09/23/20 10:20 Sputum - Endotracheal Tube Aspirate Gram Stain - Final 09/23/20 10:20 Sputum - Endotracheal Tube Aspirate Sputum Culture - Final Normal Respiratory Jaquelin - Constitutional no acute distress - *Routine Respiratory Exam Absent: respiratory distress - *Routine Cardiovascular Exam Comments: Regular rate
--- NOTE | 2020-09-26 07:27 | HMH.ACPN2 ---
Internal Medicine - PN: Subj *Date: 09/26/20 *Time: 08:16 Interval history: Pleasant this morning on exam. Continues to complain of some mild chest pain. Having multiple bowel movements overnight. Remains afebrile. Blood pressure soft but stable. Bradycardic but still in A. fib on telemetry. Patient has no other complaints this morning. Is talkative and interactive. Denies cough, shortness of breath, nausea, constipation Exam Vital signs and Labs for Last 24 Hours: Temp Pulse Resp BP Pulse Ox 98.1 F 60 18 100/51 L 98 09/26/20 03:42 09/26/20 04:00 09/26/20 03:42 09/26/20 03:42 09/26/20 03:42 I & O for Last 24 hours: Intake & Output 09/23/20 09/24/20 09/25/20 09/26/20 23:59 23:59 23:59 23:59 Intake Total 1190 / 1190 2797 / 2797 900 / 900 10 / 10 Output Total 1400 / 1400 1000 / 1000 650 / 650 200 / 200 Balance -210 / -210 1797 / 1797 250 / 250 -190 / -190 Weight 120.996 kg 124.426 kg 124.426 kg 125.22 kg Microbiology Reports for the Last 24 Hours: Microbiology 09/23/20 10:20 Sputum - Endotracheal Tube Aspirate Gram Stain - Final 09/23/20 10:20 Sputum - Endotracheal Tube Aspirate Sputum Culture - Final Normal Respiratory Jaquelin Narrative: Alert and oriented x3, cooperative on exam Heart rate bradycardic but irregular abdomen soft, bowel sounds active lungs clear, chest wall mildly tender on exam, wearing 2 L oxygen. Edema is about the same in the left foot. Gout pain is resolving; Right leg continues to be fairly free of edema. Oropharynx clear Assessment and Plan (1) Cardiopulmonary arrest with successful resuscitation Status: Acute Category: Medical Code(s): I46.9 - Cardiac arrest, cause unspecified (2) Blood loss anemia Status: Acute Category: Medical Code(s): D50.0 - Iron deficiency anemia secondary to blood loss (chronic) (3) CAD (coronary artery disease) Status: Chronic Qualifiers: Category: Medical Code(s): I25.10 - Atherosclerotic heart disease of [place] coronary artery without angina pectoris (4) Chronic atrial fibrillation Status: Chronic Category: Medical Code(s): I48.20 - Chronic atrial fibrillation, unspecified (5) Systolic CHF Status: Chronic Qualifiers: Category: Medical Code(s): I50.20 - Unspecified systolic (congestive) heart failure (6) Obesity (BMI 30-39.9) Status: Chronic Category: Medical Code(s): E66.9 - Obesity, unspecified (7) Colon polyps Status: Acute Category: Medical Code(s): K63.5 - Polyp of colon (8) Renal artery stenosis Status: Acute Category: Medical Code(s): I70.1 - Atherosclerosis of renal artery (9) HTN (hypertension) Status: Acute Category: Medical Code(s): I10 - Essential (primary) hypertension (10) HLD (hyperlipidemia) Status: Acute Qualifiers: Category: Medical Code(s): E78.5 - Hyperlipidemia, unspecified (11) Edema of both lower extremities Status: Chronic Category: Medical Code(s): R60.0 - Localized edema - Assessment and plan all Dx Assessment and Plan for all problems:: 70-year-old male who presented with anemia due to blood loss from GI source. Protracted course with EGD and colonoscopy. Status post cardiac arrest during colonoscopy. Patient has continued to improve remarkably over the past few days from his arrest. He continues to be in A. fib however. Given complications his arrhythmia presents given his bleeding and anticoagulation considerations, further intervention planned today with cardiology. Blood count stabilized. Electrolytes unremarkable. Kidney function improving. Cardiology continues to follow; plan for JACQUELINE with cardioversion later today. No evidence of further bleeding. PT/OT evaluation for rehabilitation placement/discharge recommendations.. Continues to require inpatient management Full code
--- NOTE | 2020-09-26 07:39 | HMH.PNCARD ---
<SarahManda iverson - Last Filed: 09/26/20 08:06> Subjective Date: 09/26/20 Time: 07:40 Principal diagnosis: GI Bleed Interval history: 70-year-old -[place] male admitted to the hospital for lower extremity pain 4-5 days ago. During this admission patient was noted to have GI bleed. Patient underwent an upper GI as well as a colonoscopy. Patient did go into cardiac arrest and had an emergent left cardiac catheterization which required no percutaneous intervention during colonoscopy. Patient has history of parosyxmal atrial fibrillation. After the episode of cardiac arrest. Patient did go into atrial fibrillation with PVCs. Patient was started on amiodarone drip and has been converted over to oral amiodarone and maintains rate control at this time. During this assessment patient, he denies any chest pain or pressure. Denies any shortness of breath. Pt does have some mild edema in his lower extremity at times but this is much improved. PCP is managing the lower extremity swelling. PCP believes that this is gout. Denies any fever, chills, nausea, vomiting, diarrhea, PND or orthopnea. Vital signs are stable. Patient states overall he is feeling well. Patient does complain of chest soreness due to post cardiac arrest. Patient is scheduled to undergo JACQUELINE with cardioversion today and hopefully will him convert him into sinus rhythm. Due to patient's anemia and GI bleed, unable to take anti-coagulation therapy. Pt is currently on Plavix due to post coronary stenting in August 2020. We have spoken with patient regarding watchman device due to his inability to take anticoagulation. Discussed benefits of having a watchman device placed. Further discussion of the watchman device can be on outpatient basis at the next cardiology appointment. Pending on the results of the JACQUELINE with cardioversion today, treatment and medication changes may be recommended. Please notify cardiology of any changes in patient status. Thank you for allowing cardiology to participate in the care of this patient. All recommendations and orders from Dr. Smith Exam Vital signs and Labs for Last 24 Hours: Temp Pulse Resp BP Pulse Ox 98.1 F 60 18 100/51 L 98 09/26/20 03:42 09/26/20 04:00 09/26/20 03:42 09/26/20 03:42 09/26/20 03:42 I & O for Last 24 hours: Intake & Output 09/23/20 09/24/20 09/25/20 09/26/20 23:59 23:59 23:59 23:59 Intake Total 1190 / 1190 2797 / 2797 900 / 900 10 10 Output Total 1400 / 1400 1000 / 1000 650 / 650 200 / 200 Balance -210 / -210 1797 / 1797 250 / 250 -190 / -190 Weight 266 lb 12 oz 274 lb 5 oz 274 lb 5 oz 276 lb 1 oz Microbiology Reports for the Last 24 Hours: Microbiology 09/23/20 10:20 Sputum - Endotracheal Tube Aspirate Gram Stain - Final 09/23/20 10:20 Sputum - Endotracheal Tube Aspirate Sputum Culture - Final Normal Respiratory Jaquelin - Constitutional obese - *Routine HEENT Exam Head: Present: normocephalic ENT: Present: mucous membranes moist - *Routine Neck Exam Present: supple, full ROM, normal carotid upstroke. Absent: JVD, carotid bruit, lymphadenopathy - *Routine Respiratory Exam Present: accessory muscle use, CTA bilaterally. Absent: stridor, wheezes - *Routine Cardiovascular Exam Present: RRR, Normal S1, Normal S2, irregular rhythm. Absent: murmur, click, JVD - *Routine Abdominal Exam Present: normoactive bowel sounds, obese. Absent: distended, guarding - *Routine Extremities Exam Present: edema, full ROM, pulses intact, normal capillary refill Comments: Bilateral lower extremities. - *Routine Skin Exam Present: intact, dry, warm. Absent: lesions - *Routine Neurological Exam Present: alert, oriented X3, normal speech - Routine Psychiatric Exam Present: normal affect, cooperative Progress Note: A&P (1) Cardiopulmonary arrest with successful resuscitation Status: Acute (2) Blood loss anemia Status: Ac
[2020-09-26 08:22] LABS: Basophils % 0.2 % (0.1-2.0); Eosinophils # 0.2 K/mm3 (0.0-0.4); Eosinophils % 1.3 % (0.1-12.0); Hematocrit 30.3 % (42.0-52.0); Hemoglobin 10.4 g/dL (14.1-18.0); Lymphocytes # 1.1 K/mm3 (0.7-4.5); Lymphocytes % 9.1 % (10-50); Mean Corpuscular HGB Conc 34.2 g/dL (31.8-35.4); Mean Corpuscular Hemoglobin 30.9 pg (27.0-31.2); Mean Corpuscular Volume 90.5 fl (80-94); Mean Platelet Volume 8.2 fl (7.4-10.4); Monocytes # 0.5 K/mm3 (0.1-1.0); Monocytes % 4.5 % (1.7-9.3); Neutrophils # 9.8 K/mm3 (1.8-7.8); Neutrophils % 84.9 % (37.0-80.0); Platelet Count 188 K/mm3 (142-424); Red Blood Count 3.35 M/mm3 (4.60-6.20); Red Cell Distribution Width 17.6 % (11.5-17.5); White Blood Count 11.6 K/mm3 (4.8-10.8)
[2020-09-26 08:39] LABS: Chloride 106 mmol/L (98-107); Potassium 3.3 mmoL/L (3.5-5.1); Sodium 139 mmol/L (136-145)
[2020-09-26 08:41] LABS: Blood Urea Nitrogen 10 mg/dl (9-20); Creatinine Clearance Estimated 120 mL/min (50-200); Estimated Glomerular Filt Rate 83 ml/min (>60); GFR (African American) 101 ML/MIN (>60)
[2020-09-26 08:42] LABS: Alanine Aminotransferase 45 U/L (12-78); Albumin Level 2.8 g/dl (3.5-5.0); Albumin/Globulin Ratio 0.9 (1.1-1.8); Alkaline Phosphatase 68 U/L (38-126); Anion Gap 9.3 mEq/L (5-15); Aspartate Amino Transferase 23 U/L (17-59); Bilirubin,Total 0.3 mg/dl (0.2-1.3); Calcium 8.4 mg/dl (8.4-10.2); Carbon Dioxide 27 mmol/L (22.0-30.0); Globulin 3.1 g/dL (1.3-3.2); Glucose 133 mg/dl (74-100); Total Protein,Serum 5.9 g/dl (6.3-8.2)
--- NOTE | 2020-09-26 09:33 | SW/DCPLANNER ---
Addendum entered by Linette Mayer 09/29/20 14:17: PATIENT WAS APPROVED TO GO TO [facility] TODAY... I HAVE NOTIFIED THE TO GO AND START THE PAPERWORK.. PATIENT WILL GO VIA AMBULANCE... Addendum entered by Linette Mayer 09/29/20 11:05: SENT UPDATES... WAITING TO HEAR TO WHETHER INSURANCE HAS APPROVED HIM FOR A SKILLED STAY AT [facility].... Original Note: SPOKE WITH AND PATIENT DURING ROUNDS YESTERDAY REGARDING DISCHARGE PLANNING... THINKS PATIENT NEEDS SOME SKILLED REHAB BEFORE RETURNING HOME, SHE STATED SHE DOESN'T FEEL SHE CAN CARE FOR HIM NOW...I ASKED HER WHERE SHE WOULD LIKE FOR HIM TO GO AND SHE REQUESTED STAYING CLOSE IF POSSIBLE...SHE REQUESTED [facility] AND I SENT REFERRAL AND THEY ARE IN NETWORK.. THEY ARE WORKING ON AUTHORIZATION....HE WON'T BE READY UNTIL THE FIRST OF NEXT WEEK PENDING NO SETBACKS... WAITING TO HEAR BACK SINCE PATIENT WALKED WITH THERAPY AND DID WELL, INSURANCE MAY NOT PJ HIM TO GO, IF THAT IS THE CASE I WILL SPEAK WITH ABOUT OTHER OPTIONS...
--- NOTE | 2020-09-26 12:07 | CA_ITS ---
APPROVED REPORT EXAM: Comprehensive 2D, Doppler, and color-flow Echocardiogram Healthcare Consulting Manager: Kaley Irene CRT Ht: 5 ft 10 in Wt: 276lbs BSA: 2.39 BP: 160/86 mmHg Indications: afib Procedure After obtaining informed consent, patient underwent transesophageal echo in the Insurance Account Specialist. Type of Sedation : Conscious Sedation Sedation was administered by Andrea Menjivar C.R.N.A. Transesophageal probe was inserted and advanced into esophagus without difficulty by Dr. Familia Beverly. The JACQUELINE was performed without complications. Synchronized Cardioversion attempted: Successful Synchronized Cardioversion acheived with 200 Joules after 1 attempt(s). Rhythm following Synchronized Cardioversion: Normal Sinus Rhythm Throughout the procedure, the blood pressure, pulse oximetry, cardiac rhythm, and rate were monitored. The patient tolerated the procedure without adverse effects. Recovery from conscious sedation was uneventful and vital signs were stable. Left Ventricle Left ventricle is normal size, mild concentric left ventricular hypertrophy, visually estimated ejection fraction in the obtained views is 50% with no regional wall motion abnormalities without changes. Right Ventricle Right ventricle is normal size and contractility. Atria Mildly enlarged, left atrial appendage is free of thrombus. Right atrium is normal size. Intra-atrial septum is intact, there is no flow across the interatrial septum, agitated saline contrast study fails to identify intracardiac shunt. Aortic Valve Aortic valve is thickened and calcified with mild aortic stenosis and mild aortic insufficiency. Mitral Valve Mitral valve grossly normal, there is mild mitral regurgitation. Tricuspid Valve Tricuspid valve grossly normal, there is mild tricuspid regurgitation. Pulmonic Valve Pulmonic valve is grossly normal. Great Vessels Aortic root is normal size. Normal Pericardium No significant pericardial effusion noted. Conclusion 1. Mildly enlarged left atrium, left atrial appendage is free of thrombus, there is good appendage flow by spectral Doppler. 2. Normal left ventricular size and function visually estimated ejection fraction 50% in the left ventricle 3. Mild aortic stenosis with mild aortic insufficiency. 4. No significant pericardial effusion noted 5. Other ancillary findings as described above. 6. Successful electrical cardioversion to restore sinus rhythm with 200 J of synchronized DC current. Electronically signed by : Darinel Asencio, 09/26/2020 14:11:26
--- NOTE | 2020-09-26 13:07 | HMH.GEROBB ---
Gastroenterology Consult Consult:: S: Patient communicative with no further bleeding O: Physical Examination: Gen.: The patient is a well-developed well-nourished individual in no acute distress HEENT: Normocephalic/atraumatic extraocular movements are intact anicteric Neck: Supple no lymphadenopathy Chest: Clear to auscultation Cardiovascular: Slow rate/bradycardia and regular rhythm Abdomen: Normoactive bowel sounds soft, nontender, nondistended, no hepatosplenomegaly Extremities: No edema A/P: 1. Acute gastrointestinal hemorrhage. Asystole/marked bradycardia with colonoscopy. The patient did appear to have 1 or 2 advanced adenomatous polyps (by Dr. Titus Loredo) which will eventually need to be removed. The patient will need to have cardiac status cleared and perhaps he does have some degree of heart block. If does require pacemaker, I would prefer that we do this subsequently. I would recommend that he continue with anticoagulation since this presently poses higher risk. If the patient does show further signs of bleeding or remains Hemoccult positive, I would recommend outpatient video capsule enteroscopy.
--- NOTE | 2020-09-26 13:27 | ECG_ITS ---
APPROVED REPORT Exam: Resting ECG HR:81 bpm ECG Measurements Heart Rate 81 AXES WA 248 P 57 QRSd 106 QRS -16 QT 400 T 92 QTc 464 Conclusion Sinus rhythm with 1st degree AV block Low voltage QRS Abnormal QRS-T angle, consider primary T wave abnormality Prolonged QT Abnormal ECG Electronically signed by : Henrry Vegas, 09/27/2020 07:16:17
--- NOTE | 2020-09-26 15:05 | DIET.NUTRFU ---
Addendum entered by Diandra Abraham 09/29/20 15:44: PO intakes 75%, weight has stabilized (4#>admission wt.) Pt reports no nutritional concerns, states he is making bland selections. He is aware of nutritional supplements on the floor if needed. He does continue with diarrhea rt C.diff. Continuing to monitor. Original Note: Pt NPO today for procedure, previously 75-100% PO intakes and no nutritional concerns. Weight up 10# t/o stay. Continuing to monitor. Pt has been provided with diet edu for low sodium diet and bland diet encouraged.
[2020-09-27] VITALS (8 sets, daily range): BP systolic 100–139; BP diastolic 57–99; PULSE 66–110; RESP 18–25; TEMP 36.6–37.2; O2SAT 91–100; BMI 38.6
[2020-09-27 05:44] LABS: Hematocrit 30.9 % (42.0-52.0); Hemoglobin 10.4 g/dL (14.1-18.0)
--- NOTE | 2020-09-27 06:52 | PC.NURSE ---
patient able to swallow medication with no difficulty; has shown no s/s of acute distress during this shift; bed at lowest level for safety, call light within reach; will continue to monitor.
--- NOTE | 2020-09-27 09:08 | HMH.ACPN2 ---
Internal Medicine - PN: Subj *Date: 09/27/20 *Time: 09:08 Interval history: Patient states he feels pretty good this morning. Gouty pain in the left foot is improving. Cardiopulmonary status has been controlled overnight since cardioversion. Is in sinus rhythm with frequent PACs. Blood pressures well controlled. Patient notes that his breathing is about baseline. No problems with edema noted. Exam Vital signs and Labs for Last 24 Hours: Temp Pulse Resp BP Pulse Ox 98.8 F 92 H 21 131/92 H 99 09/27/20 08:00 09/27/20 08:00 09/27/20 08:00 09/27/20 08:00 09/27/20 08:00 Laboratory Results - last 24 hr 09/27/20 05:33: Hgb 10.4 L, Hct 30.9 L I & O for Last 24 hours: Intake & Output 09/24/20 09/25/20 09/26/20 09/27/20 11:59 11:59 11:59 11:59 Intake Total 1967 / 1967 1060 / 1060 910 / 910 Output Total 1800 / 1800 150 / 150 850 / 850 1250 / 1250 Balance 167 / 167 910 / 910 60 / 60 -1250 / -1250 Weight 274 lb 5 oz 274 lb 5 oz 276 lb 1 oz 276 lb Narrative: Heart rate regular with occasional ectopic beats. Lungs have good air movement, oxygen requiring with O2 saturations in the upper 90s on 2 L. Abdomen soft, normal bowel sounds. Edema at baseline. Gouty arthritic flare in left foot looks better. No skin rash or significant heat noted. Patient moving all extremities and is alert and pleasant. Assessment and Plan (1) Cardiopulmonary arrest with successful resuscitation Status: Acute Category: Medical Code(s): I46.9 - Cardiac arrest, cause unspecified (2) Blood loss anemia Status: Acute Category: Medical Code(s): D50.0 - Iron deficiency anemia secondary to blood loss (chronic) (3) CAD (coronary artery disease) Status: Chronic Qualifiers: Category: Medical Code(s): I25.10 - Atherosclerotic heart disease of [place] coronary artery without angina pectoris (4) Chronic atrial fibrillation Status: Chronic Category: Medical Code(s): I48.20 - Chronic atrial fibrillation, unspecified (5) Systolic CHF Status: Chronic Qualifiers: Category: Medical Code(s): I50.20 - Unspecified systolic (congestive) heart failure (6) Obesity (BMI 30-39.9) Status: Chronic Category: Medical Code(s): E66.9 - Obesity, unspecified (7) Colon polyps Status: Acute Category: Medical Code(s): K63.5 - Polyp of colon (8) Renal artery stenosis Status: Acute Category: Medical Code(s): I70.1 - Atherosclerosis of renal artery (9) HTN (hypertension) Status: Acute Category: Medical Code(s): I10 - Essential (primary) hypertension (10) HLD (hyperlipidemia) Status: Acute Qualifiers: Category: Medical Code(s): E78.5 - Hyperlipidemia, unspecified (11) Edema of both lower extremities Status: Chronic Category: Medical Code(s): R60.0 - Localized edema - Assessment and plan all Dx Assessment and Plan for all problems:: Patient has done well since cardioversion. Cardiology note regarding anticoagulation issues reviewed, approach seems reasonable to discontinue dual antiplatelet therapy given data on large bore stents and his risk of bleeding. Plan will be to continue Xarelto because of his high risk of A. fib and his extremely high [id number] score if he goes back into atrial fibrillation which is certainly extremely likely. Patient did extremely well with physical therapy-much better than I expected-we will discuss with his today whether she feels comfortable taking him home in the next couple of days to continue medicines at home. He wishes to go home.
--- NOTE | 2020-09-27 17:28 | PC.NURSE ---
Pt has been very lethargic this shift and has slept most of the day. 1st degree AV block on tele. Pt has been on RA this shift w/ o2 sats 98 and above. Pt has had x1 XL loose incontinent BM this shift. No other acute changes or complaints at this time. WIll continue to monitor.
[2020-09-28] VITALS (8 sets, daily range): BP systolic 96–124; BP diastolic 55–73; PULSE 60–112; RESP 18–24; TEMP 36.6–37.2; O2SAT 93–98; BMI 38.2
[2020-09-28 00:20] LABS: Campylobacter Not Detected (NotDetected); Plesimonas Shigalloides, PCR Not Detected (NotDetected); Salmonella, PCR Not Detected (NotDetected); Vibrio, PCR Not Detected (NotDetected); Yersinia Entercolitica, PCR Not Detected (NotDetected)
[2020-09-28 00:21] LABS: Adenovirus F 40/41, stool Not Detected (NotDetected); Astrovirus Not Detected (NotDetected); Cryptosporidium Not Detected (NotDetected); Cyclospora Cayetanesis Not Detected (NotDetected); Entamoeba histolytica Not Detected (NotDetected); Enteroaggregative E coli Not Detected (NotDetected); Enteropathogenic E coli Not Detected (NotDetected); Enterotoxigenic E coli Not Detected (NotDetected); Giardia lamblia Not Detected (NotDetected); Norovirus Not Detected (NotDetected); Rotavirus A Not Detected (NotDetected); Sapovirus Not Detected (NotDetected); Shiga-like toxin E coli Not Detected (NotDetected); Shigella Enterovasive E coli Not Detected (NotDetected); Vibrio Cholerae Not Detected (NotDetected)
[2020-09-28 02:25] LABS: Clostridium Difficile A/B, PCR Detected (NotDetected)
--- NOTE | 2020-09-28 03:26 | PC.NURSE ---
A&OX4. PT TOLERATING RA WELL. PT HAS BEEN INCONTINENT TO BOWEL AND BLADDER. PT HAS HAD CONTINUOUS LOOSE STOOL, YELLOW IN COLOR. FOUL SMELL. THIS NURSE TOOK SAMPLE, PT IS CDIFF POSITIVE. PLACED IN ENTERIC PRECAUTIONS. STARTED ON PO VANC PER EMERGENCY TELECOMMUNICATIONS DISPATCHER MD KUMAR. TOLERATED WELL. NO OTHER C/O THUS FAR, VSS WILL CONTINUE TO MONITOR.
--- NOTE | 2020-09-28 07:43 | HMH.ACPN2 ---
Internal Medicine - PN: Subj *Date: 09/28/20 *Time: 07:43 Interval history: Patient continues to have some stool incontinence, this was present on admission, but yesterday became worse and foul-smelling, C. difficile titer was positive. Patient started on vancomycin. Other than his loose stool he feels a little better, continues to be globally weak. Exam Vital signs and Labs for Last 24 Hours: Temp Pulse Resp BP Pulse Ox 98.0 F 89 24 114/58 L 95 09/28/20 04:00 09/28/20 04:00 09/28/20 04:00 09/28/20 04:00 09/28/20 04:00 Laboratory Results - last 24 hr 09/28/20 00:05: Stl Aeromonas (PCR) Not detected, Stl C. cayetanensis PCR Not detected, Stool Rotavirus (PCR) Not detected, Stl Adenov F 40/41 PCR Not detected, Stool Astrovirus (PCR) Not detected, Stool Campylobacter PCR Not detected, Stl C.difficile Tox PCR Detected A, Stool Cryptosporidium PCR Not detected, Stl E.coli Shiga Tox PCR Not detected, Stool E coli O157 PCR Not detected, Stl Enterotoxigenic E PCR Not detected, Stool EPEC (PCR) Not detected, Stool EAEC (PCR) Not detected, Stl E. histolytica PCR Not detected, Stool Giardia Lamblia PCR Not detected, Stool Salmonella PCR Not detected, Stool Sapovirus (PCR) Not detected, Stl P. shigelloides PCR Not detected, Stl Shigella/EIEC PCR Not detected, St Y.enterocolitica PCR Not detected, Stool Vibrio (PCR) Not detected, Stl Vibrio cholerae PCR Not detected, Stl Norovirus GI/GII PCR Not detected I & O for Last 24 hours: Intake & Output 09/25/20 09/26/20 09/27/20 09/28/20 11:59 11:59 11:59 11:59 Intake Total 1060 / 1060 910 / 910 240 / 240 600 / 600 Output Total 150 / 150 850 / 850 1250 / 1250 Balance 910 / 910 60 / 60 -1010 / -1010 600 / 600 Weight 274 lb 5 oz 276 lb 1 oz 276 lb 273 lb 9 oz Narrative: Alert, pleasant. Oriented x3. Lungs have good air movement. Heart rate regular with occasional ectopic beats. Abdomen soft, edema is improving. Neurologic exam nonfocal. Oropharynx clear Assessment and Plan (1) Cardiopulmonary arrest with successful resuscitation Status: Acute Category: Medical Code(s): I46.9 - Cardiac arrest, cause unspecified (2) Blood loss anemia Status: Acute Category: Medical Code(s): D50.0 - Iron deficiency anemia secondary to blood loss (chronic) (3) CAD (coronary artery disease) Status: Chronic Qualifiers: Category: Medical Code(s): I25.10 - Atherosclerotic heart disease of [place] coronary artery without angina pectoris (4) Chronic atrial fibrillation Status: Chronic Category: Medical Code(s): I48.20 - Chronic atrial fibrillation, unspecified (5) Systolic CHF Status: Chronic Qualifiers: Category: Medical Code(s): I50.20 - Unspecified systolic (congestive) heart failure (6) Obesity (BMI 30-39.9) Status: Chronic Category: Medical Code(s): E66.9 - Obesity, unspecified (7) Colon polyps Status: Acute Category: Medical Code(s): K63.5 - Polyp of colon (8) Renal artery stenosis Status: Acute Category: Medical Code(s): I70.1 - Atherosclerosis of renal artery (9) HTN (hypertension) Status: Acute Category: Medical Code(s): I10 - Essential (primary) hypertension (10) HLD (hyperlipidemia) Status: Acute Qualifiers: Category: Medical Code(s): E78.5 - Hyperlipidemia, unspecified (11) Edema of both lower extremities Status: Chronic Category: Medical Code(s): R60.0 - Localized edema (12) C. difficile colitis Status: Acute Category: Medical Code(s): A04.72 - Enterocolitis due to Clostridium difficile, not specified as recurrent - Assessment and plan all Dx Assessment and Plan for all problems:: Oral vancomycin started for C. difficile. Treat symptomatically. Otherwise patient seems to be doing well. Check labs tomorrow. See yesterday's note regarding thinking about anticoagulation. Await insurance certification for probable long-term care placement
--- NOTE | 2020-09-28 14:15 | PC.NURSE ---
HE IS AOX4, HAS BEEN UP TO CHAIR FOR MOST OF SHIFT, TOLERATING RA, MULTIPLE EPISODES OF DIARRHEA NOTED, STOOL YELLOW IN COLOR, HE HAS TOLERATED DIET WELL WITH NO N/V, AMBULATES WITH WALKER AND 1 ASSIST TO BS, DENIES PAIN.
--- NOTE | 2020-09-28 22:15 | PC.NURSE ---
2100 COURTESY ROUND PATIENT AWAKE . ASSISTED PATIENT TO BEDSIDE COMMODE AND BACK TO BED. PATIENT STATED NO OTHER NEEDS AT THIS TIME. TRASH AND LINENS EMPTIED
[2020-09-29] VITALS (7 sets, daily range): BP systolic 105–143; BP diastolic 59–86; PULSE 50–89; RESP 17–18; TEMP 36.8; O2SAT 93–97; BMI 37.8
--- NOTE | 2020-09-29 03:23 | PC.NURSE ---
A&OX4. TOLERATING RA WELL. PT HAS CONTINUED TO HAVE INTERMITTENT LIQUID, YELLOW, AND FOUL SMELLING BMS. PT HAS NO CONTROL OVER BOWELS. PT IS CHANGED AND KEPT CLEAN/DRY T/O SHIFT. PT SAT ON BC ONCE THIS SHIFT, MOVED FROM BED TO BC WITH X1 ASSIST AND WALKER, PT DID VERY WELL. THIS NURSE BATHED PT THIS SHIFT. PROVIDED CLEAN BED LINENS AND ORAL CARE. PT DOES NOT C/O PAIN OR NA/VO. PT IS VERY POLITE AND CHEERFUL. CONTACT ENTERIC PRECAUTIONS IN PLACE. NO OTHER C/O THUS FAR. VSS WILL CONTINUE TO MONITOR.
[2020-09-29 06:10] LABS: Basophils % 0.2 % (0.1-2.0); Eosinophils # 0.1 K/mm3 (0.0-0.4); Eosinophils % 0.8 % (0.1-12.0); Hematocrit 33.9 % (42.0-52.0); Hemoglobin 11.2 g/dL (14.1-18.0); Lymphocytes # 0.9 K/mm3 (0.7-4.5); Lymphocytes % 4.9 % (10-50); Mean Corpuscular HGB Conc 33.1 g/dL (31.8-35.4); Mean Corpuscular Hemoglobin 30.5 pg (27.0-31.2); Mean Corpuscular Volume 92.1 fl (80-94); Monocytes # 0.5 K/mm3 (0.1-1.0); Monocytes % 2.8 % (1.7-9.3); Neutrophils % 91.3 % (37.0-80.0); Platelet Count 229 K/mm3 (142-424); Red Blood Count 3.68 M/mm3 (4.60-6.20); Red Cell Distribution Width 17.6 % (11.5-17.5); White Blood Count 18.6 K/mm3 (4.8-10.8)
[2020-09-29 06:13] LABS: MANUAL DIFFERENTIAL MANUAL DIFFERENTIAL (MANUAL DIFF)
--- NOTE | 2020-09-29 06:14 | PC.NURSE ---
0600 COURT[address] PATIENT AWAKE AND URINAL EMPTIED. LINEN AND TRASHED EMPTIED . ICE WATER REFILLED
[2020-09-29 06:15] LABS: Chloride 101 mmol/L (98-107); Sodium 136 mmol/L (136-145)
[2020-09-29 06:18] LABS: Alanine Aminotransferase 24 U/L (12-78); Albumin Level 2.9 g/dl (3.5-5.0); Albumin/Globulin Ratio 0.9 (1.1-1.8); Alkaline Phosphatase 90 U/L (38-126); Aspartate Amino Transferase 22 U/L (17-59); Bilirubin,Total 0.5 mg/dl (0.2-1.3); Blood Urea Nitrogen 17 mg/dl (9-20); Carbon Dioxide 28 mmol/L (22.0-30.0); Creatinine Clearance Estimated 98 mL/min (50-200); Estimated Glomerular Filt Rate 60 ml/min (>60); GFR (African American) 72 ML/MIN (>60); Globulin 3.2 g/dL (1.3-3.2); Total Protein,Serum 6.1 g/dl (6.3-8.2)
[2020-09-29 06:19] LABS: Calcium 8.5 mg/dl (8.4-10.2); Glucose 146 mg/dl (74-100); Potassium 2.7 mmoL/L (3.5-5.1)
[2020-09-29 06:22] LABS: Lymphocytes % 4 % (10-50); Monocytes % 4 % (2-9); Neutrophils % 92 % (42-76); Platelet Estimate Normal; Total Cells Counted 100
[2020-09-29 06:23] LABS: Hypochromasia 2+; Macrocytosis 1+; Microcytosis 1+; Spherocytes 2+
--- NOTE | 2020-09-29 08:02 | HMH.ACPN2 ---
Internal Medicine - PN: Subj *Date: 09/29/20 *Time: 08:02 Interval history: Patient states that he feels bad because of his bowels, he continues to have diarrhea. C. difficile titers became +2 days ago. From a cardiopulmonary standpoint he feels about the same. Able to get up and walk around the room without shortness of air. Peripheral edema is about the same. Exam Vital signs and Labs for Last 24 Hours: Temp Pulse Resp BP Pulse Ox 98.2 F 89 18 143/86 H 96 09/29/20 07:54 09/29/20 07:54 09/29/20 07:54 09/29/20 07:54 09/29/20 07:54 Laboratory Results - last 24 hr 09/29/20 06:04: WBC 18.6 H D, RBC 3.68 L, Hgb 11.2 L, Hct 33.9 L, MCV 92.1, MCH 30.5, MCHC 33.1, RDW 17.6 H, Plt Count 229, MPV 8.0, Neut % (Auto) 91.3 H, Lymph % (Auto) 4.9 L, [place] % (Auto) 2.8, Eos % (Auto) 0.8, Baso % (Auto) 0.2, Neut # (Auto) 17.0 H, Lymph # (Auto) 0.9, [place] # (Auto) 0.5, Eos # (Auto) 0.1, Baso # (Auto) 0.0, Total Counted 100, Neutrophils % (Manual) 92 H, Lymphocytes % (Manual) 4 L, Monocytes % (Manual) 4, Platelet Estimate Normal, Hypochromasia 2+, Microcytosis 1+, Macrocytosis 1+, Spherocytes 2+ 09/29/20 06:04: Sodium 136, Potassium 2.7 L*, Chloride 101, Carbon Dioxide 28, BUN 17 D, Creatinine 1.20 D, Estimated Creat Clear 98, Estimated GFR 60, Est GFR ( Amer) 72 D, Glucose 146 H, Calcium 8.5, Total Bilirubin 0.5, AST 22, ALT 24 D, Alkaline Phosphatase 90, Total Protein 6.1 L, Albumin 2.9 L, Globulin 3.2, Albumin/Globulin Ratio 0.9 L I & O for Last 24 hours: Intake & Output 06/18/09/27/20 09/28/20 09/29/20 11:59 11:59 11:59 11:59 Intake Total 910 / 910 240 / 240 840 / 840 840 / 840 Output Total 850 / 850 1250 / 1250 250 / 250 Balance 60 / 60 -1010 / -1010 840 / 840 590 / 590 Weight 276 lb 1 oz 276 lb 273 lb 9 oz 270 lb 5 oz Narrative: Patient on room air and is comfortable. Lungs have good air movement, heart rate regular with occasional ectopic beats. Abdomen is soft, minimal lower quadrant tenderness. No visible edema compared to baseline. Neurologically intact. Assessment and Plan (1) Cardiopulmonary arrest with successful resuscitation Status: Acute Category: Medical Code(s): I46.9 - Cardiac arrest, cause unspecified (2) Blood loss anemia Status: Acute Category: Medical Code(s): D50.0 - Iron deficiency anemia secondary to blood loss (chronic) (3) CAD (coronary artery disease) Status: Chronic Qualifiers: Category: Medical Code(s): I25.10 - Atherosclerotic heart disease of [place] coronary artery without angina pectoris (4) Chronic atrial fibrillation Status: Chronic Category: Medical Code(s): I48.20 - Chronic atrial fibrillation, unspecified (5) Systolic CHF Status: Chronic Qualifiers: Category: Medical Code(s): I50.20 - Unspecified systolic (congestive) heart failure (6) Obesity (BMI 30-39.9) Status: Chronic Category: Medical Code(s): E66.9 - Obesity, unspecified (7) Colon polyps Status: Acute Category: Medical Code(s): K63.5 - Polyp of colon (8) Renal artery stenosis Status: Acute Category: Medical Code(s): I70.1 - Atherosclerosis of renal artery (9) HTN (hypertension) Status: Acute Category: Medical Code(s): I10 - Essential (primary) hypertension (10) HLD (hyperlipidemia) Status: Acute Qualifiers: Category: Medical Code(s): E78.5 - Hyperlipidemia, unspecified (11) Edema of both lower extremities Status: Chronic Category: Medical Code(s): R60.0 - Localized edema (12) C. difficile colitis Status: Acute Category: Medical Code(s): A04.72 - Enterocolitis due to Clostridium difficile, not specified as recurrent - Assessment and plan all Dx Assessment and Plan for all problems:: Overall patient seems to be progressing well although certainly C. difficile has been a setback for him. Continue vancomycin. Add probiotic. Potassium low this morning this will be replaced p.o. Check t
--- NOTE | 2020-09-29 13:55 | HMH.DCSUM ---
General - General Admission date:: 09/21/20 Discharge date: 09/29/20 HPI HPI: Mr. Phillips is a pleasant 70-year-old -[place] male who was admitted a month ago for worsening CHF. Left heart cath performed with LAD stent placement. Significant adjustment to his medications and was sent home with a LifeVest due to decreased ejection fraction from 55% to less than 30% in the span of just a few months. He presented this visit to the ER last night due to worsening left ankle pain. Complains of feeling weak and having black stools as well over the past few weeks. Of note he was discharged on triple therapy with oral anticoagulation, antiplatelet therapy consisting of Brilinta and aspirin. Has been on Protonix daily. Hemoglobin on arrival in the low 7 range. At discharge a month ago hemoglobin 14. Patient was admitted for concern for GI source for his acute blood loss anemia. Imaging performed of his left ankle showed no fractures just soft tissue swelling. Patient does have a history of gout, symptoms consistent with his previous gout flares. On exam this morning, he complains of some weakness, fatigue, left ankle pain and swelling. Denies any nausea, chest pain, shortness of breath. Is currently n.p.o. awaiting GI consult. No other complaints at this time Hospital Course Hospital Course: Patient was admitted to hospital and work-up was started, which included EGD which revealed some erosive gastritis but no source that might account for the significant blood loss and patient was subjected to colonoscopy the following day which revealed polyps. During the procedure, after most of the procedure was accomplished patient suffered a cardiac arrest during the procedure with asystole severe bradycardia, etc., went through a full 45-minute cardiopulmonary resuscitation with chest compressions, intubation, multiple rounds of epinephrine and atropine. Stabilized, and transferred to floor, regained atrial fibrillation rhythm, and later that day was surprisingly extubated and did well over the next weekend. Patient was maintained in the intensive care unit on amiodarone drip to try to convert back to sinus rhythm to try to avoid ongoing anticoagulation therapy, and this did not result in cardioversion and patient was subjected to electrocardioversion on 09/26/2020 with successful conversion to sinus rhythm. However, it was decided that patient would benefit from ongoing Xarelto therapy given his extremely high [id number] score, and dual antiplatelet therapy was discontinued because of the patient's high risk of bleeding, large bore stent and cardiology data showing that now that he has had DAPT for 6 weeks the greater part of benefit is done. Patient was watched over the weekend, PT/OT evaluated him, patient was able to ambulate with assistance, but was globally weak. He also, unfortunately, developed C. difficile and had incontinent stools. Because of his need for significant nursing care for post code monitoring, frequent lab draws, vancomycin administration and need for ongoing PT and OT patient will be transferred to detention facility [facility]. Please note medication of the discharge reconciliation form. Please note the patient will need a BMP and CBC on 10/01/2020. Please note he will need PT/OT evaluation. Objective Vital signs: Temp Pulse Resp BP Pulse Ox 98.2 F 84 17 109/67 L 96 09/29/20 11:16 09/29/20 12:00 09/29/20 11:16 09/29/20 11:16 09/29/20 11:16 no acute distress, morbidly obese - *Routine HEENT Exam Head: Present: normocephalic Eye: Present: EOMI, PERRL ENT: Present: mucous membranes moist - *Routine Neck Exam Present: supple, full ROM - *Routine Respiratory Exam Present: CTA bilaterally - *Routine Cardiovascular Exam Present: RRR, Normal S1 Comments: Frequent ectopic beats but baseline rhythm is regular - *Routine Abdominal Exam Present: soft, normoac
== END 2020-09-29 15:40 | DRG 377 ==
LOC: ER 20:23 → 2ND 21:43
PROVIDERS: Internal Medicine; Internal Medicine Adolescent Medicine; Internal Medicine Cardiovascular Disease; Internal Medicine Gastroenterology; Surgery; Admitting Provider Family Medicine; Emergency Provider Emergency Medicine; PCP Internal Medicine Adolescent Medicine; Visit Provider Internal Medicine Adolescent Medicine
PROC: 0DJ08ZZ Inspection of Upper Intestinal Tract, Via Natural or Artificial Opening Endoscopic (ICD-10-PCS; CPT 43235; principal; 2020-09-22 15:00)
PROC: 0DJD8ZZ Inspection of Lower Intestinal Tract, Via Natural or Artificial Opening Endoscopic (ICD-10-PCS; principal; 2020-09-23 07:30)
PROC: 4A023N7 Measurement of Cardiac Sampling and Pressure, Left Heart, Percutaneous Approach (ICD-10-PCS; principal; 2020-09-23 08:30)
DX: K31.811 Angiodysplasia of stomach and duodenum with bleeding (principal); I46.9 Cardiac arrest, cause unspecified; I50.33 Acute on chronic diastolic (congestive) heart failure; R57.0 Cardiogenic shock; I49.01 Ventricular fibrillation; D62 Acute posthemorrhagic anemia; I48.20 Chronic atrial fibrillation, unspecified; I42.9 Cardiomyopathy, unspecified; I47.2 Ventricular tachycardia; I50.22 Chronic systolic (congestive) heart failure; A04.72 Enterocolitis due to Clostridium difficile, not specified as recurrent; K63.5 Polyp of colon; I48.0 Paroxysmal atrial fibrillation; Z95.5 Presence of coronary angioplasty implant and graft; I70.1 Atherosclerosis of renal artery; K31.7 Polyp of stomach and duodenum; K31.9 Disease of stomach and duodenum, unspecified; R00.1 Bradycardia, unspecified; I49.3 Ventricular premature depolarization; M10.9 Gout, unspecified; E66.9 Obesity, unspecified; Z68.37 Body mass index [BMI] 37.0-37.9, adult; I11.0 Hypertensive heart disease with heart failure; K57.31 Diverticulosis of large intestine without perforation or abscess with bleeding; I25.10 Atherosclerotic heart disease of native coronary artery without angina pectoris
CPT/HCPCS: 36415; 71045; 73610; 73630; 80048; 80053; 81001; 82272; 82803; 82962; 83735; 84550; 85007; 85014; 85018; 85025; 86850; 87070; 87205; 87506; 88305; 93005; 93312; 93458; 93971; 94002; 94761; 97110; 97116; 97161; 97165; 97530; 97535; 99152; 99284; C1725; C1751; C1769; C1894; C2618; G0328; J0282; J1644; J2405; J3370; J7060; P9016; Q9967; U0003

== ENCOUNTER → 2020-10-01 16:02 | Outpatient (CLI) | payer MEDICARE, SELFPAY ==
[2020-10-01 17:18] LABS: Basophils % 0.2 % (0.1-2.0); Eosinophils # 0.1 K/mm3 (0.0-0.4); Hematocrit 33.8 % (42.0-52.0); Hemoglobin 11.2 g/dL (14.1-18.0); Lymphocytes # 1.3 K/mm3 (0.7-4.5); Lymphocytes % 11.4 % (10-50); Mean Corpuscular HGB Conc 33.1 g/dL (31.8-35.4); Mean Corpuscular Hemoglobin 30.6 pg (27.0-31.2); Mean Corpuscular Volume 92.4 fl (80-94); Mean Platelet Volume 8.7 fl (7.4-10.4); Monocytes # 0.5 K/mm3 (0.1-1.0); Monocytes % 3.9 % (1.7-9.3); Neutrophils # 9.7 K/mm3 (1.8-7.8); Neutrophils % 83.4 % (37.0-80.0); Platelet Count 304 K/mm3 (142-424); Red Blood Count 3.66 M/mm3 (4.60-6.20); Red Cell Distribution Width 17.5 % (11.5-17.5); White Blood Count 11.7 K/mm3 (4.8-10.8)
== END ==
PROVIDERS: Visit Provider Internal Medicine Adolescent Medicine
DX: K92.1 Melena (principal); D50.0 Iron deficiency anemia secondary to blood loss (chronic)
CPT/HCPCS: 85025

== ENCOUNTER → 2020-10-02 07:52 | Outpatient (CLI) | payer MEDICARE, SELFPAY ==
[2020-10-02 14:08] LABS: Chloride 102 mmol/L (98-107); Sodium 142 mmol/L (136-145)
[2020-10-02 14:11] LABS: Blood Urea Nitrogen 13 mg/dl (9-20); Estimated Glomerular Filt Rate 60 ml/min (>60); GFR (African American) 72 ML/MIN (>60)
[2020-10-02 14:12] LABS: Calcium 8.8 mg/dl (8.4-10.2); Carbon Dioxide 32 mmol/L (22.0-30.0); Glucose 127 mg/dl (74-100)
[2020-10-02 14:42] LABS: Basophils % 0.3 % (0.1-2.0); Eosinophils # 0.2 K/mm3 (0.0-0.4); Eosinophils % 1.6 % (0.1-12.0); Hematocrit 33.4 % (42.0-52.0); Hemoglobin 10.7 g/dL (14.1-18.0); Lymphocytes # 1.6 K/mm3 (0.7-4.5); Lymphocytes % 17.4 % (10-50); Mean Corpuscular Hemoglobin 29.6 pg (27.0-31.2); Mean Corpuscular Volume 92.4 fl (80-94); Mean Platelet Volume 8.7 fl (7.4-10.4); Monocytes # 0.4 K/mm3 (0.1-1.0); Monocytes % 4.7 % (1.7-9.3); Platelet Count 296 K/mm3 (142-424); Red Blood Count 3.62 M/mm3 (4.60-6.20); Red Cell Distribution Width 17.4 % (11.5-17.5); White Blood Count 9.2 K/mm3 (4.8-10.8)
== END ==
PROVIDERS: Visit Provider Internal Medicine Adolescent Medicine
DX: I50.22 Chronic systolic (congestive) heart failure (principal); I11.0 Hypertensive heart disease with heart failure
CPT/HCPCS: 36415; 80048; 85025

== ENCOUNTER → 2020-10-07 09:12 | Outpatient (CLI) | payer MEDICARE, SELFPAY ==
[2020-10-07 13:55] LABS: Basophils % 0.2 % (0.1-2.0); Eosinophils # 0.1 K/mm3 (0.0-0.4); Eosinophils % 0.6 % (0.1-12.0); Hematocrit 34.6 % (42.0-52.0); Hemoglobin 11.3 g/dL (14.1-18.0); Lymphocytes # 1.1 K/mm3 (0.7-4.5); Lymphocytes % 6.4 % (10-50); Mean Corpuscular HGB Conc 32.6 g/dL (31.8-35.4); Mean Corpuscular Hemoglobin 30.4 pg (27.0-31.2); Mean Corpuscular Volume 93.3 fl (80-94); Mean Platelet Volume 8.4 fl (7.4-10.4); Monocytes # 0.6 K/mm3 (0.1-1.0); Monocytes % 3.2 % (1.7-9.3); Neutrophils # 15.6 K/mm3 (1.8-7.8); Neutrophils % 89.6 % (37.0-80.0); Platelet Count 356 K/mm3 (142-424); Red Blood Count 3.71 M/mm3 (4.60-6.20); White Blood Count 17.4 K/mm3 (4.8-10.8)
[2020-10-07 13:56] LABS: Alanine Aminotransferase 22 U/L (12-78); Alkaline Phosphatase 79 U/L (38-126); Anion Gap 11.3 mEq/L (5-15); Aspartate Amino Transferase 32 U/L (17-59); Bilirubin,Total 0.5 mg/dl (0.2-1.3); Blood Urea Nitrogen 6 mg/dl (9-20); Calcium 8.7 mg/dl (8.4-10.2); Carbon Dioxide 37 mmol/L (22.0-30.0); Chloride 97 mmol/L (98-107); Chol/HDL Ratio 2.3 (1-3.5); Cholesterol 89 mg/dl (140-200); Estimated Glomerular Filt Rate 66 ml/min (>60); GFR (African American) 80 ML/MIN (>60); Glucose 122 mg/dl (74-100); HDL Cholesterol 38 mg/dl (40-60); Potassium 3.3 mmoL/L (3.5-5.1); Sodium 142 mmol/L (136-145); Triglycerides 95 mg/dl (30-150); Uric Acid 5.2 mg/dl (3.5-8.5); VLDL Cholesterol 19 mg/dL (0-40)
[2020-10-07 13:59] LABS: MANUAL DIFFERENTIAL MANUAL DIFFERENTIAL (MANUAL DIFF)
[2020-10-07 14:07] LABS: Direct LDL Cholesterol 30.85 mg/dL (100-129)
[2020-10-07 15:43] LABS: Eosinophils % 8 % (0-3); Lymphocytes % 7 % (10-50); Monocytes % 5 % (2-9); Myelocytes % 2 (0-1); Neutrophils % 70 % (42-76); Total Cells Counted 100
[2020-10-07 15:44] LABS: Anisocytosis 2+; Hypochromasia 3+; Macrocytosis 1+; Platelet Estimate Normal
== END ==
PROVIDERS: Visit Provider Nurse Practitioner Family
DX: I11.0 Hypertensive heart disease with heart failure (principal); I50.22 Chronic systolic (congestive) heart failure; D50.0 Iron deficiency anemia secondary to blood loss (chronic); E78.5 Hyperlipidemia, unspecified; M10.9 Gout, unspecified
CPT/HCPCS: 36415; 80053; 80061; 84550; 85007; 85025

== ENCOUNTER → 2020-10-13 07:19 | Outpatient (CLI) | payer MEDICARE, SELFPAY ==
[2020-10-13 13:44] LABS: Basophils % 0.4 % (0.1-2.0); Eosinophils # 0.2 K/mm3 (0.0-0.4); Eosinophils % 3.3 % (0.1-12.0); Hematocrit 33.8 % (42.0-52.0); Hemoglobin 10.4 g/dL (14.1-18.0); Lymphocytes # 1.5 K/mm3 (0.7-4.5); Lymphocytes % 25.1 % (10-50); Mean Corpuscular HGB Conc 30.7 g/dL (31.8-35.4); Mean Corpuscular Volume 94.5 fl (80-94); Mean Platelet Volume 7.9 fl (7.4-10.4); Monocytes # 0.4 K/mm3 (0.1-1.0); Monocytes % 6.2 % (1.7-9.3); Neutrophils # 3.9 K/mm3 (1.8-7.8); Platelet Count 323 K/mm3 (142-424); Red Blood Count 3.58 M/mm3 (4.60-6.20); Red Cell Distribution Width 17.5 % (11.5-17.5)
[2020-10-13 13:45] LABS: Chloride 101 mmol/L (98-107)
[2020-10-13 13:46] LABS: Potassium 3.8 mmoL/L (3.5-5.1); Sodium 141 mmol/L (136-145)
[2020-10-13 13:49] LABS: Anion Gap 9.8 mEq/L (5-15); Blood Urea Nitrogen 9 mg/dl (9-20); Calcium 8.8 mg/dl (8.4-10.2); Carbon Dioxide 34 mmol/L (22.0-30.0); Estimated Glomerular Filt Rate 66 ml/min (>60); GFR (African American) 80 ML/MIN (>60); Glucose 118 mg/dl (74-100)
== END ==
PROVIDERS: Visit Provider Nurse Practitioner Family
DX: I50.22 Chronic systolic (congestive) heart failure (principal); I11.0 Hypertensive heart disease with heart failure
CPT/HCPCS: 36415; 80048; 85025

== ENCOUNTER 2020-10-25 05:27 | Observation (INO) | payer MEDICARE, SELFPAY ==
[2020-10-25] VITALS (18 sets, daily range): BP systolic 102–144; BP diastolic 64–85; PULSE 69–109; RESP 16–21; TEMP 36.6–37.9; O2SAT 94–100; BMI 35.9; BMI 34.5; BMI 34.7
--- NOTE | 2020-10-25 05:38 | CT_ITS ---
PROCEDURE INFORMATION: Exam: CT Abdomen And Pelvis With Contrast Exam date and time: 10/25/2020 5:38 AM Age: 70 years old Clinical indication: Abdominal pain; Additional info: Abd pain TECHNIQUE: Imaging protocol: Computed tomography of the abdomen and pelvis with contrast. Radiation optimization: All CT scans at this facility use at least one of these dose optimization techniques: automated exposure control; mA and/or kV adjustment per patient size (includes targeted exams where dose is matched to clinical indication); or iterative reconstruction. Contrast material: ISOVUE; Contrast volume: 75 ml; Contrast route: IV; COMPARISON: CT ABDOMEN PELVIS WO CON 07/13/2020 6:38 PM FINDINGS: Liver: Unchanged calcification along the margins of the liver, no new or suspicious hepatic lesions. Gallbladder and bile ducts: No calcified stones. No ductal dilation. Pancreas: No ductal dilation. Spleen: Multiple splenic parenchymal calcifications, likely from old granulomatous disease. Adrenal glands: Adenomatous hyperplasia of the left adrenal gland without focal mass. Kidneys and ureters: 6.4 cm indeterminate attenuating lesion again noted in the inferior left kidney. Indeterminate attenuating 1.7 cm right superior renal cortical lesion. Additionally, there is a simple cyst in the inferior right kidney. Stomach and bowel: Acute ascending colitis with colonic wall thickening and pericolonic inflammation. While several regional colonic diverticula are present, the do not appear particularly inflamed to suggest diverticulitis as an etiology. There is also mild inflammation along the transverse, descending and sigmoid colon, also with variable areas of extensive diverticular disease. Mild wall thickening throughout the rectosigmoid colon. Appendix: Appendix is not visualized. Intraperitoneal space: No free air. No significant fluid collection. Vasculature: Moderate aortic and branch vessel atherosclerosis. Aortic annular and coronary artery calcifications are present. Lymph nodes: No enlarged lymph nodes. Urinary bladder: Urinary bladder wall appears thickened although partially decompressed. Reproductive: Unremarkable as visualized. Bones/joints: No acute fracture. L4-L5 posterior fusion and L5 posterior decompression. Soft tissues: Unremarkable. IMPRESSION: 1. Acute ascending colitis, and mild transverse, descending and rectosigmoid colitis. While there is extensive colonic diverticular disease, the diverticula themselves do not appear particularly inflamed and this is favored to represent colitis rather than diverticulitis. 2. Thickening of the urinary bladder wall can be seen with underlying cystitis, correlate with urinalysis. 3. Again noted is a large indeterminate left inferior renal lesion and there is also a small indeterminate right renal cortical lesion. Recommend outpatient multiphasic renal MRI for further evaluation. COMMENTS: Consistent with the [employer]'s Incidental Findings Committee white paper (J Am Mayte Radiol 2018): Any incidental renal lesion less than 1 cm or classified as too small to characterize, or any incidental cystic renal lesion characterized as simple-appearing, is likely benign. No follow-up imaging is recommended for these lesions per consensus recommendations based on imaging criteria.
[2020-10-25 06:06] LABS: Coronavirus 19, PCR Not Detected (NotDetected); Influenza A, PCR Not Detected (NotDetected); Influenza B, PCR Not Detected (NotDetected)
[2020-10-25 06:12] LABS: Microscopic, Urine URINE MICROSCOPIC (MICROSCOPIC)
[2020-10-25 06:15] LABS: Appearance,Urine CLEAR (Clear); Bilirubin,Urine Negative (Negative); Blood, Urine TRACE-I (Negative); Color,Urine YELLOW (Yellow); Glucose,Urine (UA) Negative (Negative); Ketones,Urine Negative (Negative); Leukocyte Esterase,Urine 2+ (Negative); Nitrate,Urine POSITIVE (Negative); PH,Urine 7.5 (5.0-8.5); Protein,Urine 2+ (Negative); Urobilinogen,Urine 0.2 EU/dl (0.2)
[2020-10-25 06:25] LABS: Alanine Aminotransferase 13 U/L (12-78); Albumin Level 3.7 g/dl (3.5-5.0); Albumin/Globulin Ratio 1.1 (1.1-1.8); Alkaline Phosphatase 95 U/L (38-126); Amylase 55 U/L (30-110); Anion Gap 12.6 mEq/L (5-15); Aspartate Amino Transferase 20 U/L (17-59); Bilirubin,Total 0.6 mg/dl (0.2-1.3); Blood Urea Nitrogen 14 mg/dl (9-20); Calcium 9.4 mg/dl (8.4-10.2); Carbon Dioxide 29 mmol/L (22.0-30.0); Chloride 101 mmol/L (98-107); Creatinine Clearance Estimated 91 mL/min (50-200); Estimated Glomerular Filt Rate 60 ml/min (>60); GFR (African American) 72 ML/MIN (>60); Globulin 3.4 g/dL (1.3-3.2); Glucose 140 mg/dl (74-100); Lipase 14 U/L (23-300); Potassium 3.6 mmoL/L (3.5-5.1); Sodium 139 mmol/L (136-145); Total Protein,Serum 7.1 g/dl (6.3-8.2)
[2020-10-25 06:26] LABS: Lactic Acid 0.9 mmol/L (0.7-2.1)
[2020-10-25 06:31] LABS: C-Reactive Protein 71.1 mg/L (0-4)
--- NOTE | 2020-10-25 06:36 | XR_ITS ---
PROCEDURE INFORMATION: Exam: XR Chest Exam date and time: 10/25/2020 6:36 AM Age: 70 years old Clinical indication: Pain; Other: Abdomen; Additional info: Abd pain TECHNIQUE: Imaging protocol: XR of the chest. Views: 1 view. COMPARISON: CR XR CHEST PORTABLE 09/23/2020 1:49 PM FINDINGS: Cardiac silhouette is at the upper limits of normal in size for portable technique. There are increased interstitial opacities bilaterally with no focal consolidation. No pleural effusion or pneumothorax. IMPRESSION: Mild interstitial opacities, likely mild interstitial edema. Underlying infection is not excluded in the appropriate clinical setting.
[2020-10-25 06:37] LABS: NT Pro Brain Natriuretic Pep. 179 pg/mL (0-125)
[2020-10-25 06:39] LABS: Basophils % 0.3 % (0.1-2.0); Eosinophils # 0.2 K/mm3 (0.0-0.4); Eosinophils % 1.9 % (0.1-12.0); Hemoglobin 12.9 g/dL (14.1-18.0); Lymphocytes # 0.7 K/mm3 (0.7-4.5); Mean Corpuscular HGB Conc 32.2 g/dL (31.8-35.4); Mean Corpuscular Hemoglobin 30.5 pg (27.0-31.2); Mean Corpuscular Volume 94.6 fl (80-94); Mean Platelet Volume 8.5 fl (7.4-10.4); Monocytes # 0.7 K/mm3 (0.1-1.0); Monocytes % 5.6 % (1.7-9.3); Platelet Count 180 K/mm3 (142-424); Red Blood Count 4.22 M/mm3 (4.60-6.20); Red Cell Distribution Width 19.2 % (11.5-17.5); White Blood Count 11.6 K/mm3 (4.8-10.8)
[2020-10-25 06:42] LABS: MANUAL DIFFERENTIAL MANUAL DIFFERENTIAL (MANUAL DIFF)
--- NOTE | 2020-10-25 07:04 | PC.NURSE ---
pt taken to radiology at this time.
[2020-10-25 07:11] LABS: Erythrocyte Sedimentation Rate 44 mm/hr (0-20)
[2020-10-25 07:46] LABS: Anisocytosis 1+; Hypochromasia 2+; Lymphocytes % 5 % (10-50); Macrocytosis 2+; Microcytosis 1+; Monocytes % 8 % (2-9); Neutrophils % 87 % (42-76); Platelet Estimate Normal; Total Cells Counted 100
--- NOTE | 2020-10-25 07:49 | PC.NURSE ---
pt incontinent of stool, pt cleaned depends changed. not enough stool for specimen
--- NOTE | 2020-10-25 08:02 | HMH.EDABDPAI ---
ED Disposition Clinical Impression: C. difficile colitis Disposition: Admitted As Inpatient Condition on Discharge: Fair Instructions: DI for Acute Abdominal Pain Referrals: Henrry Vegas MD [Primary Care Provider] - - Critical Care Critical Care Time: No Attestation: On 10/25/20, the high probability of a clinically significant, sudden or life threatening deterioration of the following system(s) required my full and direct attention, intervention and personal management. The time I documented below is in addition to time spent performing reported procedures but includes the following listed in this critical care notation. Medical Decision Making - Medical Records Medical records reviewed: Yes: I reviewed the patient's medical records. - Carlos Inquiry Pt receiving controlled substance: No Vital Signs: 10/25/20 05:23 10/25/20 06:00 10/25/20 06:30 Temperature 98.2 F Temperature Source Oral Pulse Rate 84 72 Pulse Rate [Right] 94 H Respiratory Rate 18 Blood Pressure 144/82 H 141/75 H Blood Pressure [Right Arm] 126/80 Blood Pressure Mean 100 90 Blood Pressure Mean [Right Arm] 95 02 Sat by Pulse Oximetry 94 L 95 98 Oxygen Flow Rate (LPM) 2 2 10/25/20 07:00 10/25/20 07:44 10/25/20 08:01 Temperature Temperature Source Pulse Rate 74 85 86 Pulse Rate [Right] Respiratory Rate 18 16 Blood Pressure 134/74 131/82 129/70 Blood Pressure [Right Arm] Blood Pressure Mean 85 87 95 Blood Pressure Mean [Right Arm] 02 Sat by Pulse Oximetry 98 99 98 Oxygen Flow Rate (LPM) 2 10/25/20 08:31 10/25/20 09:01 10/25/20 09:31 Temperature Temperature Source Pulse Rate 84 87 82 Pulse Rate [Right] Respiratory Rate 18 18 18 Blood Pressure 114/71 136/73 134/78 Blood Pressure [Right Arm] Blood Pressure Mean 85 89 88 Blood Pressure Mean [Right Arm] 02 Sat by Pulse Oximetry 96 99 99 Oxygen Flow Rate (LPM) - Lab Data Lab Results 10/25/20 05:40: SARS-CoV-2 (PCR) Not detected, Influenza A Untype (PCR) Not detected, Influenza Type B (PCR) Not detected 10/25/20 05:56: WBC 11.6 H, RBC 4.22 L, Hgb 12.9 L, Hct 40.0 L, MCV 94.6 H, MCH 30.5, MCHC 32.2, RDW 19.2 H, Plt Count 180, MPV 8.5, Neut % (Auto) 86.0 H, Lymph % (Auto) 6.0 L, [place] % (Auto) 5.6, Eos % (Auto) 1.9, Baso % (Auto) 0.3, Neut # (Auto) 10.0 H, Lymph # (Auto) 0.7, [place] # (Auto) 0.7, Eos # (Auto) 0.2, Baso # (Auto) 0.0, Total Counted 100, Neutrophils % (Manual) 87 H, Lymphocytes % (Manual) 5 L, Monocytes % (Manual) 8, Platelet Estimate Normal, RBC Morphology Not Reportable, Hypochromasia 2+, Anisocytosis 1+, Microcytosis 1+, Macrocytosis 2+, ESR 44 H 10/25/20 05:56: Sodium 139, Potassium 3.6, Chloride 101, Carbon Dioxide 29, Anion Gap 12.6, BUN 14, Creatinine 1.20, Estimated Creat Clear 91, Estimated GFR 60, Est GFR ( Amer) 72, Glucose 140 H, Calcium 9.4, Total Bilirubin 0.6, AST 20, ALT 13, Alkaline Phosphatase 95, C-Reactive Protein 71.1 H, Total Protein 7.1, Albumin 3.7, Globulin 3.4 H, Albumin/Globulin Ratio 1.1, Amylase 55, Lipase 14 L, Procalcitonin 0.090 10/25/20 05:56: Lactate 0.9 10/25/20 05:56: NT-Pro-B Natriuret Pep 179 H 10/25/20 05:57: Urine Color Yellow, Urine Appearance Clear, Urine pH 7.5, Ur Specific [place] 1.020, Urine Protein 2+, Urine Glucose (UA) Negative, Urine Ketones Negative, Urine Blood Trace-i, Urine Nitrate Positive, Urine Bilirubin Negative, Urine Urobilinogen 0.2, Ur Leukocyte Esterase 2+ A, Urine RBC 3-5, Urine WBC 5-10, Ur Squamous Epith Cells 3-5 Result diagrams: 10/25/20 05:56 10/25/20 05:56 Orders (Tests/Meds): ED MEDICATIONS Generic Name Dose Route Start Last Admin Trade Name Freq PRN Reason Stop Dose Admin Acetaminophen 650 mg 10/25/20 09:53 Acetaminophen 325mg Tab PO 11/24/20 09:52 Q4HP PRN Fever or Mild Pain Ceftriaxone Sodium 1 gm/ 50 mls @ 100 mls/hr 10/25/20 06:45 10/25/20 06:37 Sodium Chloride IV 11/08/20 06:44 100 mls/hr Q24H CHARLINE
--- NOTE | 2020-10-25 09:51 | PC.NURSE ---
Dr Anatoliy Irvin
--- NOTE | 2020-10-25 11:02 | PC.NURSE ---
ordered patient a diabetic lunch tray
[2020-10-25 11:05] LABS: Adenovirus F 40/41, stool Not Detected (NotDetected); Astrovirus Not Detected (NotDetected); Campylobacter Not Detected (NotDetected); Cryptosporidium Not Detected (NotDetected); Cyclospora Cayetanesis Not Detected (NotDetected); Entamoeba histolytica Not Detected (NotDetected); Enteroaggregative E coli Not Detected (NotDetected); Enteropathogenic E coli Not Detected (NotDetected); Enterotoxigenic E coli Not Detected (NotDetected); Giardia lamblia Not Detected (NotDetected); Norovirus Not Detected (NotDetected); Plesimonas Shigalloides, PCR Not Detected (NotDetected); Rotavirus A Not Detected (NotDetected); Salmonella, PCR Not Detected (NotDetected); Sapovirus Not Detected (NotDetected); Shiga-like toxin E coli Not Detected (NotDetected); Shigella Enterovasive E coli Not Detected (NotDetected); Vibrio Cholerae Not Detected (NotDetected); Vibrio, PCR Not Detected (NotDetected); Yersinia Entercolitica, PCR Not Detected (NotDetected)
--- NOTE | 2020-10-25 11:29 | PC.NURSE ---
patient FSBS was 122. patient is refusing to eat at this time. says he is not hungry and would just like to sleep. MD notified of glucose level, and patient wishes.
[2020-10-25 11:35] LABS: POC Glucose,Bedside 122 (70-110)
--- NOTE | 2020-10-25 11:38 | PC.NURSE ---
called report on patient to TETO Nelson
--- NOTE | 2020-10-25 12:27 | P.CONPHA_ITS ---
[facility] Pharmacy VTE Monitoring - Patient Demographics Admission date: 10/25/20 Report Date: 10/25/20 Time: 12:27 Allergies/Adverse Reactions: Patient Allergies Penicillins Allergy (Verified 10/21/20 13:11) Height: 1.78 m Weight: 113.398 kg Patient Problems: Current Active Problems C. difficile colitis (Acute) - VTE Risk Labs: VTE Related Lab Results Hgb 12.9 g/dL (14.1-18.0) L 10/25/20 05:56 Hct 40.0 % (42.0-52.0) L 10/25/20 05:56 Plt Count 180 K/mm3 (142-424) 10/25/20 05:56 BUN 14 mg/dl (9-20) 10/25/20 05:56 Creatinine 1.20 mg/dl (0.66-1.25) 10/25/20 05:56 Estimated Creat Clear 91 mL/min (50-200) 10/25/20 05:56 - Prophylaxis VTE Prophylaxis Ordered?: Yes Types of VTE Prophylaxis: TEDS Knee High, Pharmacological Location of Applied Device: Bilateral Lower Extremeties Pharmacologic Type: Other (XARELTO)
[2020-10-25 12:54] LABS: Clostridium Difficile A/B, PCR Detected (NotDetected)
--- NOTE | 2020-10-25 14:10 | HMH.PHAINT ---
MEDICATION RECONCILIATION COMPLETED ON PATIENT USING EXTERNAL FILL HISTORY FROM PHARMACY AND DISCHARGE SUMMARY FROM PREVIOUS ADMISSION. -KWAKU CASHD
[2020-10-25 17:22] LABS: POC Glucose,Bedside 118 (70-110)
--- NOTE | 2020-10-25 19:31 | PC.NURSE ---
HE IS AOX4, ABLE TO MAKE NEEDS KNOWN TO STAFF, 2LNC FOR O2 SUPPORT, DENIES N/V/D. NO NEEDS VOICED.
[2020-10-25 20:59] LABS: POC Glucose,Bedside 133 (70-110)
[2020-10-26 04:00] VITALS: BP 120/69; PULSE 69; TEMP 36.5; O2SAT 99
--- NOTE | 2020-10-26 04:50 | PC.NURSE ---
Patient has been alert and oriented this shift. He has rested well throughout the night. Patient has been on room air and 2LNC. Lung sounds are clear but diminished throughout. Patient has had no complaints this shift. Vital signs are stable, will continue to monitor. Call light within reach.
[2020-10-26 05:00] VITALS: BMI 34.5
[2020-10-26 06:04] LABS: POC Glucose,Bedside 129 (70-110)
[2020-10-26 07:19] LABS: Basophils % 0.3 % (0.1-2.0); Eosinophils # 0.3 K/mm3 (0.0-0.4); Hematocrit 33.9 % (42.0-52.0); Hemoglobin 10.8 g/dL (14.1-18.0); Lymphocytes # 0.9 K/mm3 (0.7-4.5); Lymphocytes % 11.9 % (10-50); Mean Corpuscular HGB Conc 31.9 g/dL (31.8-35.4); Mean Corpuscular Hemoglobin 30.5 pg (27.0-31.2); Mean Corpuscular Volume 95.6 fl (80-94); Mean Platelet Volume 8.5 fl (7.4-10.4); Monocytes # 0.5 K/mm3 (0.1-1.0); Monocytes % 6.4 % (1.7-9.3); Neutrophils # 5.8 K/mm3 (1.8-7.8); Neutrophils % 77.5 % (37.0-80.0); Platelet Count 162 K/mm3 (142-424); Red Blood Count 3.55 M/mm3 (4.60-6.20); Red Cell Distribution Width 18.8 % (11.5-17.5); White Blood Count 7.5 K/mm3 (4.8-10.8)
[2020-10-26 07:42] VITALS: BP 143/77; PULSE 77; RESP 18; TEMP 36.7; O2SAT 97
--- NOTE | 2020-10-26 08:28 | HMH.HP ---
*Admission Date: 10/25/20 *Chief complaint: Colitis symptoms *History of present illness: This is a 70-year-old -Thai male who presents the emergency department with complaints of lower abdominal pain. Pain is sharp and constant has been ongoing for 24 hours. Pain is located across the lower abdomen in the left and right quadrants. Patient was recently treated for C. difficile infection. He continues to have diarrhea. He denies any fever or chills. He denies any nausea or vomiting. Pain does not radiate. No palliating or provoking measures. Above note per ER physician: Patient found to have recurrent evidence of C. difficile in the ER, given his multiple comorbidities, weakness and dehydration was admitted to hospital for further evaluation and institution of antimicrobial therapy appropriately. [facility] History I have reviewed the patient's past medical history: Yes Medical History: Reports:: Arrhythmia, Asthma, Atrial Fibrillation, Congestive Heart Failure, Chronic Obstructive Pulmonary Disease (COPD), Congenital Heart Disease, Diabetes Mellitus Type 2, Hyperlipidemia, Hypertension, Palpitations, Transient Ischemic Attacks (TIA) Denies:: Cancer, Diabetes Mellitus Type 1, Home Oxygen, Internal Pacemaker, MRSA, Seizures *Have you ever received a pneumonia vaccine?: Yes *Have you received a flu vaccine this season?: Yes Other Medical History: Reports: Anemia, Arthritis Laterality Cases: Bilateral: Other Other Surgeries: Yes: No Previous Surgery, Appendectomy, Cardiac Catheterization, Colonoscopy, Coronary Stent, Hernia Repair, Other (back surgery). No: Pacemaker Amputation: No Fractures: No - *Social History Last grade of school completed: 11th or 12th Smoking Status: Former smoker Tobacco Type: cigarettes # Packs/Day (cigarettes): 1 #Yrs smoked (if former smoker): 39 Alcohol Intake: never Alcohol Intake Frequency:: other Substance Use Type: denies use *Occupational Status:: retired Housing: house Household Members: spouse *Travel in the last 8 weeks: None Family Hx:: Hyperlipidemia, Hypertension Review of Systems - Review of Systems Review of systems:: pertinent systems reviewed and negative unless documented below Meds Home Medications Medication Instructions Recorded Confirmed Type Tamsulosin HCl 0.8 mg PO DAILY 06/13/19 10/25/20 History atorvastatin 40 mg tablet 40 mg PO HS #90 tab 10/21/20 10/25/20 Rx carvedilol 12.5 mg tablet 12.5 mg PO BID #180 tab 10/21/20 10/25/20 Rx Amiodarone HCl 400 mg PO BID 10/25/20 10/25/20 History Furosemide [Furosemide 40MG tAB*] 40 mg PO DAILY 10/25/20 10/25/20 History L. Acidophilus/Strept/LA P-[place] 1 cap PO DAILY 10/25/20 10/25/20 History [Jaquelin-Q Probiotic Capsule] Pantoprazole Sodium [Protonix 40mg 40 mg PO BID 10/25/20 10/25/20 History tablet] Rivaroxaban [Xarelto 10mg tablet] 20 mg PO QPMWITHMEAL 10/25/20 10/25/20 History Sacubitril/Valsartan [Entresto] 1 tab PO BID 10/25/20 10/25/20 History Spironolactone 50 mg PO BID 10/25/20 10/25/20 History Sucralfate [Carafate 1gm Tab] 1 gm PO ACHS 10/25/20 10/25/20 History allopurinoL [Allopurinol 300mg 300 mg PO DAILY 10/25/20 10/25/20 History tablet] Allergies Allergy/AdvReac Type Severity Reaction Status Date / Time Penicillins Allergy Verified 10/21/20 13:11 Exam Vital signs and Labs for Last 24 Hours: Temp Pulse Resp BP Pulse Ox 98.1 F 77 18 143/77 H 97 10/26/20 07:42 10/26/20 07:42 10/26/20 07:42 10/26/20 07:42 10/26/20 07:42 Laboratory Results - last 24 hr 10/25/20 05:57: Urine Color Yellow, Urine Appearance Clear, Urine pH 7.5, Ur Specific [place] 1.020, Urine Protein 2+, Urine Glucose (UA) Negative, Urine Ketones Negative, Urine Blood Trace-i, Urine Nitrate Positive, Urine Bilirubin Negative, Urine Urobilinogen 0.2, Ur Leukocyte Esterase 2+ A, Urine RBC 3-5, Urine WBC 5-10, Ur Squamous Epith Cells 3-5 10/25/20 10:30: Stl Aeromonas (PCR) Not detected, Stl C. cayetanensis P
[2020-10-26 09:21] LABS: Blood Urea Nitrogen 12 mg/dl (9-20); Calcium 8.8 mg/dl (8.4-10.2); Carbon Dioxide 31 mmol/L (22.0-30.0); Chloride 102 mmol/L (98-107); Creatinine Clearance Estimated 101 mL/min (50-200); Estimated Glomerular Filt Rate 66 ml/min (>60); GFR (African American) 80 ML/MIN (>60); Glucose 106 mg/dl (74-100); Sodium 138 mmol/L (136-145)
[2020-10-26 11:49] LABS: POC Glucose,Bedside 117 (70-110)
--- NOTE | 2020-10-26 15:13 | PC.NURSE ---
HE IS AOX4, O2 SUPPORTED VIA NC @ 2L PRN. PT HAS REMAINED IN BED T/O SHIFT. HE STATES THAT HE FEELS TIRED. HE DENIES N/V/D. HE HAS NOT C/O PAIN THUS FAR. ABD IS SOFT AND NON-TENDER WITH BOWEL SOUNDS ACTIVE IN ALL 4 QUADRANTS. NO ACUTE CHANGES NOTED SINCE PREVIOUS SHIFT.
[2020-10-26 15:41] VITALS: BP 117/73; PULSE 76; RESP 17; TEMP 36.9; O2SAT 93
[2020-10-26 16:50] LABS: POC Glucose,Bedside 122 (70-110)
[2020-10-26 20:00] VITALS: BP 124/70; PULSE 88; RESP 24; TEMP 37.4; O2SAT 91
[2020-10-26 21:47] LABS: POC Glucose,Bedside 103 (70-110)
--- NOTE | 2020-10-27 03:38 | PC.NURSE ---
Patient has been pleasant this shift. He is alert and oriented x4. He has had no complaints this shift. Patient bowel sounds are active. Lung sounds are clear but diminished throughout. Vital signs are stable. Will continue to monitor.
[2020-10-27 04:00] VITALS: BP 137/80; PULSE 74; RESP 22; TEMP 36.8; O2SAT 97
[2020-10-27 05:00] VITALS: BMI 34.2
[2020-10-27 05:40] LABS: POC Glucose,Bedside 113 (70-110)
[2020-10-27 05:58] LABS: Basophils % 0.2 % (0.1-2.0); Eosinophils # 0.4 K/mm3 (0.0-0.4); Eosinophils % 4.9 % (0.1-12.0); Hematocrit 33.1 % (42.0-52.0); Hemoglobin 10.4 g/dL (14.1-18.0); Lymphocytes % 14.3 % (10-50); Mean Corpuscular HGB Conc 31.5 g/dL (31.8-35.4); Mean Corpuscular Hemoglobin 30.2 pg (27.0-31.2); Mean Corpuscular Volume 95.8 fl (80-94); Mean Platelet Volume 8.5 fl (7.4-10.4); Monocytes # 0.5 K/mm3 (0.1-1.0); Monocytes % 6.7 % (1.7-9.3); Neutrophils # 5.3 K/mm3 (1.8-7.8); Neutrophils % 73.8 % (37.0-80.0); Platelet Count 157 K/mm3 (142-424); Red Blood Count 3.45 M/mm3 (4.60-6.20); Red Cell Distribution Width 18.7 % (11.5-17.5); White Blood Count 7.2 K/mm3 (4.8-10.8)
[2020-10-27 06:04] LABS: Alanine Aminotransferase 8 U/L (12-78); Albumin Level 3.1 g/dl (3.5-5.0); Alkaline Phosphatase 76 U/L (38-126); Anion Gap 8.5 mEq/L (5-15); Aspartate Amino Transferase 17 U/L (17-59); Bilirubin,Total 0.5 mg/dl (0.2-1.3); Blood Urea Nitrogen 10 mg/dl (9-20); Calcium 8.7 mg/dl (8.4-10.2); Carbon Dioxide 30 mmol/L (22.0-30.0); Chloride 101 mmol/L (98-107); Creatinine Clearance Estimated 100 mL/min (50-200); Estimated Glomerular Filt Rate 66 ml/min (>60); GFR (African American) 80 ML/MIN (>60); Globulin 3.1 g/dL (1.3-3.2); Glucose 111 mg/dl (74-100); Potassium 3.5 mmoL/L (3.5-5.1); Sodium 136 mmol/L (136-145); Total Protein,Serum 6.2 g/dl (6.3-8.2)
[2020-10-27 08:00] VITALS: BP 142/84; PULSE 68; RESP 18; TEMP 36.9; O2SAT 98
--- NOTE | 2020-10-27 09:04 | HMH.ACPN2 ---
Internal Medicine - PN: Subj *Date: 10/27/20 *Time: 09:04 Interval history: Initially on rounds patient was on the bedside commode having a liquid bowel movement. He reports that things are not any better. However nurses notes overnight show that his stool frequency has dramatically decreased. Now that he is up and around and has had some breakfast has had a couple of episodes of liquid stool. He has no complaints of chest pain, shortness of air or swelling. Exam Vital signs and Labs for Last 24 Hours: Temp Pulse Resp BP Pulse Ox 98.2 F 74 22 137/80 97 10/27/20 04:00 10/27/20 04:00 10/27/20 04:00 10/27/20 04:00 10/27/20 04:00 Laboratory Results - last 24 hr 10/26/20 06:47: Sodium 138, Potassium 4.0, Chloride 102, Carbon Dioxide 31 H, Anion Gap 9.0, BUN 12, Creatinine 1.10, Estimated Creat Clear 101, Estimated GFR 66, Est GFR ( Amer) 80, Glucose 106 H, Calcium 8.8 10/26/20 11:40: POC Glucose 117 H 10/26/20 16:09: POC Glucose 122 H 10/26/20 21:31: POC Glucose 103 10/27/20 05:32: WBC 7.2, RBC 3.45 L, Hgb 10.4 L, Hct 33.1 L, MCV 95.8 H, MCH 30.2, MCHC 31.5 L, RDW 18.7 H, Plt Count 157, MPV 8.5, Neut % (Auto) 73.8, Lymph % (Auto) 14.3, [place] % (Auto) 6.7, Eos % (Auto) 4.9, Baso % (Auto) 0.2, Neut # (Auto) 5.3, Lymph # (Auto) 1.0, [place] # (Auto) 0.5, Eos # (Auto) 0.4, Baso # (Auto) 0.0 10/27/20 05:32: Sodium 136, Potassium 3.5, Chloride 101, Carbon Dioxide 30, Anion Gap 8.5, BUN 10, Creatinine 1.10, Estimated Creat Clear 100, Estimated GFR 66, Est GFR ( Amer) 80, Glucose 111 H, Calcium 8.7, Total Bilirubin 0.5, AST 17, ALT 8 L D, Alkaline Phosphatase 76, Total Protein 6.2 L, Albumin 3.1 L, Globulin 3.1, Albumin/Globulin Ratio 1.0 L 10/27/20 05:33: POC Glucose 113 H I & O for Last 24 hours: Intake & Output 10/24/20 10/25/20 10/26/20 10/27/20 11:59 11:59 11:59 11:59 Intake Total 1679 / 1679 2346 / 2346 Balance 1679 / 1679 2346 / 2346 Weight 250 lb 255 lb 253 lb 1 oz Microbiology Reports for the Last 24 Hours: Microbiology 10/25/20 05:57 Urine,Clean Catch Urine Culture - Final Proteus mirabilis 10/25/20 05:56 Blood Blood Culture - Preliminary NO GROWTH AFTER 48 HOURS Narrative: Patient is pleasant, awake. Lungs clear, heart rate regular with occasional ectopic beats. Abdomen is actually soft, nontender. No distention. Extremities are without edema, some baseline brawny skin changes. Neurologically patient is intact. Assessment and Plan (1) C. difficile colitis Status: Acute Category: Medical Code(s): A04.72 - Enterocolitis due to Clostridium difficile, not specified as recurrent (2) Atrial fibrillation Status: Chronic Qualifiers: Category: Medical Code(s): I48.91 - Unspecified atrial fibrillation (3) Grade II diastolic dysfunction Status: Chronic Category: Medical Code(s): I51.9 - Heart disease, unspecified (4) Systolic CHF with reduced left ventricular function, NYHA class 2 Status: Chronic Category: Medical Code(s): I50.20 - Unspecified systolic (congestive) heart failure - Assessment and plan all Dx Assessment and Plan for all problems:: Hemodynamically patient is very stable. His cardiac condition seems optimized. Ceftriaxone while awaiting for urine culture. Continue dual antibiotic coverage and probiotics for C. difficile. Seems to be some improvement in his clinical exam is reassuringly normal without pain or evidence of distention.
[2020-10-27 10:25] VITALS: BMI 34.3
[2020-10-27 15:42] VITALS: BP 128/80; PULSE 67; RESP 16; TEMP 36.7; O2SAT 95
[2020-10-27 17:00] LABS: POC Glucose,Bedside 107 (70-110)
--- NOTE | 2020-10-27 17:38 | PC.NURSE ---
Pt has been pleasant and cooperative this shift. A&O X4. No complaints of pain or SOA. Pt is currently receiving O2 via NC @ 2 LPM with sats. >90%. Lungs CTA. No edema noted. Skin is C/D/I. Pt ambulates with stand-by assistance and uses the BSC/urinal. Abdomen is flat, soft, and non-tender. 2 large, loose, brown stools today. 20 G peripheral IV in the RT AC is patent and infusing LR @ 50 ML/HR. FSBS results have been 113 and 107. VSS. Call light within reach. Will continue to monitor.
[2020-10-27 19:39] VITALS: BP 140/79; PULSE 70; RESP 28; TEMP 36.6; O2SAT 96
[2020-10-27 19:57] LABS: POC Glucose,Bedside 128 (70-110)
[2020-10-28 03:27] VITALS: BP 144/90; PULSE 72; RESP 22; TEMP 36.4; O2SAT 96
--- NOTE | 2020-10-28 04:10 | PC.NURSE ---
Pt is A/O x4. Pt has had multiple loose BM's this shift. Pt denies any pain, N/V. Admin meds per MAR. Pt is able to make needs known to staff, VSS.
[2020-10-28 04:58] VITALS: BMI 34.5
[2020-10-28 05:22] LABS: POC Glucose,Bedside 144 (70-110)
[2020-10-28 06:53] LABS: Basophils # 0.1 K/mm3 (0-0.2); Basophils % 0.8 % (0.1-2.0); Eosinophils # 0.3 K/mm3 (0.0-0.4); Eosinophils % 5.6 % (0.1-12.0); Hemoglobin 11.3 g/dL (14.1-18.0); Lymphocytes # 0.9 K/mm3 (0.7-4.5); Lymphocytes % 15.1 % (10-50); Mean Corpuscular HGB Conc 32.3 g/dL (31.8-35.4); Mean Corpuscular Hemoglobin 29.8 pg (27.0-31.2); Mean Corpuscular Volume 92.2 fl (80-94); Mean Platelet Volume 8.5 fl (7.4-10.4); Monocytes # 0.4 K/mm3 (0.1-1.0); Monocytes % 6.9 % (1.7-9.3); Neutrophils # 4.4 K/mm3 (1.8-7.8); Neutrophils % 71.7 % (37.0-80.0); Platelet Count 168 K/mm3 (142-424); Red Cell Distribution Width 18.5 % (11.5-17.5); White Blood Count 6.1 K/mm3 (4.8-10.8)
[2020-10-28 07:06] LABS: Anion Gap 11.3 mEq/L (5-15); Blood Urea Nitrogen 7 mg/dl (9-20); Carbon Dioxide 32 mmol/L (22.0-30.0); Chloride 100 mmol/L (98-107); Creatinine Clearance Estimated 111 mL/min (50-200); Estimated Glomerular Filt Rate 95 ml/min (>60); GFR (African American) 115 ML/MIN (>60); Glucose 117 mg/dl (74-100); Potassium 3.3 mmoL/L (3.5-5.1); Sodium 140 mmol/L (136-145)
[2020-10-28 07:40] VITALS: BP 147/85; PULSE 73; RESP 18; TEMP 36.6; O2SAT 96
[2020-10-28 08:00] VITALS: PULSE 73; RESP 18; O2SAT 96
--- NOTE | 2020-10-28 08:00 | HMH.DCSUM ---
General - General Admission date:: 10/25/20 Discharge date: 10/28/20 HPI HPI: This is a 70-year-old -[place] male who presents the emergency department with complaints of lower abdominal pain. Pain is sharp and constant has been ongoing for 24 hours. Pain is located across the lower abdomen in the left and right quadrants. Patient was recently treated for C. difficile infection. He continues to have diarrhea. He denies any fever or chills. He denies any nausea or vomiting. Pain does not radiate. No palliating or provoking measures. Above note per ER physician: Patient found to have recurrent evidence of C. difficile in the ER, given his multiple comorbidities, weakness and dehydration was admitted to hospital for further evaluation and institution of antimicrobial therapy appropriately. 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 Admitted due to inability to tolerate oral intake and need for inpatient initiation of antibiotics. Has tolerated oral vancomycin and IV Flagyl well. At time of admission, patient was also noted to have concern for UTI. Urine growing Proteus mirabilis. We will plan to continue antibiotics for UTI for total of 5 days. Treatment for C. difficile for total of 14 days. Patient still having 2-3 loose stools a day but overall showing normalization of his white cell count, stable kidney function, improvement in his red cell count. Medically stable for discharge home. Examined on day of discharge. Afebrile. Vital stable. Complains of some mild abdominal discomfort but no nausea or vomiting. No confusion. No shortness of breath or chest pain Objective Vital signs: Temp Pulse Resp BP Pulse Ox 97.9 F 73 18 147/85 H 96 10/28/20 07:40 10/28/20 07:40 10/28/20 07:40 10/28/20 07:40 10/28/20 07:40 Narrative: - Constitutional no acute distress, morbidly obese - *Routine HEENT Exam Head: Present: normocephalic Eye: Present: EOMI, PERRL ENT: Present: mucous membranes moist - *Routine Neck Exam Present: supple. Absent: lymphadenopathy - *Routine Respiratory Exam Present: CTA bilaterally - *Routine Cardiovascular Exam Present: RRR, irregular rhythm - *Routine Abdominal Exam Present: soft, normoactive bowel sounds, mild diffuse non-focal tenderness, no rebound or guarding - *Routine Extremities Exam Present: edema (Baseline ankle edema but much improved over several months ago). Absent: cyanosis, clubbing - *Routine Skin Exam Present: warm. Absent: rash - *Routine Neurological Exam Present: alert, oriented X3 Results Labs on day of discharge: Labs from last 24 hours 10/28/20 10/28/20 10/28/20 06:22 06:22 05:11 WBC 6.1 RBC 3.80 L Hgb 11.3 L Hct 35.0 L MCV 92.2 MCH 29.8 MCHC 32.3 RDW 18.5 H Plt Count 168 MPV 8.5 Neut % (Auto) 71.7 Lymph % (Auto) 15.1 [place] % (Auto) 6.9 Eos % (Auto) 5.6 Baso % (Auto) 0.8 Neut # (Auto) 4.4 Lymph # (Auto) 0.9 [place] # (Auto) 0.4 Eos # (Auto) 0.3 Baso # (Auto) 0.1 Sodium 140 Potassium 3.3 L Chloride 100 Carbon Dioxide 32 H Anion Gap 11.3 BUN 7 L D Creatinine 0.80 D Estimated Creat Clear 111 Estimated GFR 95 Est GFR ( Amer) 115 D Glucose 117 H POC Glucose 144 H Calcium 9.0 10/27/20 10/27/20 19:49 16:49 WBC RBC Hgb Hct MCV MCH MCHC RDW Plt Count MPV Neut % (Auto) Lymph % (Auto) [place] % (Auto) Eos % (Auto) Baso % (Auto) Neut # (Auto) Lymph # (Auto) [place] # (Auto) Eos # (Auto) Baso # (Auto) Sodium Potassium Chloride Carbon Dioxide Anion Gap BUN Creatinine Estimated Creat Clear Estimated GFR Est GFR ( Amer) Glucose POC Glucose 128 H 107 Calcium Preliminary micro results at discharge 10/25/20 05:56 Blood Culture - Preliminary Blood NO GROWTH
--- NOTE | 2020-10-28 09:56 | HMH.PTEV ---
Physical Therapy Evaluation Rehab PT IP Evaluation Start: 10/28/20 08:52 Freq: ONCE Status: Active Protocol: Document 10/28/20 09:53 SHIRLEY (Rec: 10/28/20 09:56 PWRICK [id number]) Subjective/History History History This is the initial IP PT evalaution for Avi Phillips. Pt is a 70 yo male admitted to [facility] thru ED due to weakness and dehydration from chronic c-diff diarrhea Subjective Subjective Pt reports he feels a little better Rehab PT IP Eval Objective Appearance Patient Behavior Appropriate,Cooperative Patient Orientation Person,Place,Time Difficulty following instructions none Speech Pattern Clear,Appropriate Ambulation Patient Able to Ambulate Yes Ambulation Observation IP General Gait Pattern Observation Shuffling Step Ambulation Distance (feet) 10 Ambulation Assistive Device Rolling Walker Ambulation Ability Supervision/Stand by Balance Ability to Arise Able, uses arms to help Sitting Balance Steady, safe Standing Balance Steady, wide stance Dynamic Sitting Balance Ability Good Dynamic Standing Balance Ability Fair Transfers Bed Transfer Ability Independent Chair Transfer Ability Independent Sit to Stand Bed Transfer Ability Supervision/Stand by Sit to Stand Chair Transfer Ability Supervision/Stand by Rehab PT IP prob,goals,plan Problems Date of Evaluation: 10/28/20 PT IP Problems Transfers,Gait,Balance,Self care,Safety Rehab Potential Rehab Potential Good Equipment Needs Assistive Devices Rolling / Wheeled Walker Plan PT Intervention Plan Transfers,Gait,Self care, Safety,Therapeutic Exercise PT Plan Frequency BID Duration LOS Discharge Goals Sit to Stand Chair Transfer Ability Supervision/Stand by Ambulation Assistive Device Rolling Walker Ambulation Distance (feet) 10 Discharge Plan PT Discharge Plan Pt would benfit from [facility] once medically stable for discharge to allow return to [facility] G -code Required Yes Eval Complexity Eval Charge Codes 58757 - Low Complexity G Codes PT Current Status Mobility PT Current Status Modifier CJ-At least 20% but less than 40% impaired, limited or restricted PT Goal Status Mobilit
--- NOTE | 2020-10-28 10:15 | SW/DCPLANNER ---
Addendum entered by Priscila Stafford 10/28/20 13:21: Yolette with [facility] has stated that patient information has been reviewed and services will begin this week for this patient. Original Note: The plan is for this patient to return home today. I spoke with patients regarding discharge plans. stated that patient currently has a rolling walker and bedside commode at home. I explained to that PT has recommended home health services for this patient. is agreeable to home health services and has requested [facility]. Patient information/order will be faxed to [facility] and I will follow up with Yolette once information/order is reviewed.
[2020-10-28 10:29] LABS: POC Glucose,Bedside 110 (70-110)
== END 2020-10-28 12:30 | disposition home or self-care (01) ==
LOC: ER 10:19 → 2ND 11:16
PROVIDERS: Emergency Medicine; Admitting Provider Family Medicine; Emergency Provider Emergency Medicine; PCP Internal Medicine Adolescent Medicine; Visit Provider Internal Medicine Adolescent Medicine
DX: A04.72 Enterocolitis due to Clostridium difficile, not specified as recurrent (principal); J44.9 Chronic obstructive pulmonary disease, unspecified; E86.0 Dehydration; I11.0 Hypertensive heart disease with heart failure; E11.9 Type 2 diabetes mellitus without complications; Z79.01 Long term (current) use of anticoagulants; I50.22 Chronic systolic (congestive) heart failure; Z20.822 Contact with and (suspected) exposure to COVID-19; Z79.899 Other long term (current) drug therapy; Z88.0 Allergy status to penicillin; Z95.5 Presence of coronary angioplasty implant and graft; N39.0 Urinary tract infection, site not specified
CPT/HCPCS: 71045; 74177; 80048; 80053; 81001; 82150; 82962; 83605; 83690; 83880; 84145; 85007; 85025; 85651; 86140; 87040; 87086; 87088; 87186; 87507; 96365; 96367; 97161; 99281; G0378; J2405; J3370; Q9967; U0003

== ENCOUNTER → 2020-11-04 17:43 | Outpatient (CLI) | payer MEDICARE, SELFPAY ==
[2020-11-04 18:08] LABS: Basophils % 0.3 % (0.1-2.0); Eosinophils # 0.1 K/mm3 (0.0-0.4); Eosinophils % 1.8 % (0.1-12.0); Hemoglobin 12.4 g/dL (14.1-18.0); Lymphocytes # 1.5 K/mm3 (0.7-4.5); Mean Corpuscular HGB Conc 31.8 g/dL (31.8-35.4); Mean Corpuscular Hemoglobin 29.7 pg (27.0-31.2); Mean Corpuscular Volume 93.4 fl (80-94); Mean Platelet Volume 8.3 fl (7.4-10.4); Monocytes # 0.3 K/mm3 (0.1-1.0); Neutrophils # 4.7 K/mm3 (1.8-7.8); Neutrophils % 70.9 % (37.0-80.0); Platelet Count 195 K/mm3 (142-424); Red Blood Count 4.18 M/mm3 (4.60-6.20); Red Cell Distribution Width 18.6 % (11.5-17.5); White Blood Count 6.6 K/mm3 (4.8-10.8)
[2020-11-04 18:09] LABS: Alanine Aminotransferase 13 U/L (12-78); Albumin Level 3.5 g/dl (3.5-5.0); Albumin/Globulin Ratio 1.2 (1.1-1.8); Alkaline Phosphatase 75 U/L (38-126); Anion Gap 10.5 mEq/L (5-15); Aspartate Amino Transferase 44 U/L (17-59); Bilirubin,Total 0.5 mg/dl (0.2-1.3); Blood Urea Nitrogen 10 mg/dl (9-20); Calcium 8.9 mg/dl (8.4-10.2); Carbon Dioxide 33 mmol/L (22.0-30.0); Chloride 100 mmol/L (98-107); Estimated Glomerular Filt Rate 74 ml/min (>60); GFR (African American) 89 ML/MIN (>60); Glucose 122 mg/dl (74-100); Potassium 3.5 mmoL/L (3.5-5.1); Sodium 140 mmol/L (136-145); Total Protein,Serum 6.5 g/dl (6.3-8.2)
== END ==
PROVIDERS: Visit Provider Nurse Practitioner Family
DX: R53.1 Weakness (principal); A04.72 Enterocolitis due to Clostridium difficile, not specified as recurrent
CPT/HCPCS: 80053; 85025

== ENCOUNTER 2020-11-23 19:44 | Observation (INO) | payer MEDICARE, SELFPAY ==
[2020-11-23] VITALS (7 sets, daily range): BP systolic 121–169; BP diastolic 73–88; PULSE 62–73; RESP 15–19; TEMP 36.3; O2SAT 97–100; BMI 34.8; BMI 34.7
--- NOTE | 2020-11-23 20:04 | ECG_ITS ---
APPROVED REPORT Exam: Resting ECG HR:63 bpm ECG Measurements Heart Rate 63 AXES SC 306 P 76 QRSd 94 QRS 17 QT 466 T 81 QTc 476 Conclusion Sinus rhythm with 1st degree AV block Low voltage QRS Nonspecific ST and T wave abnormality Prolonged QT Abnormal ECG Electronically signed by : Henrry Vegas MD 11/26/2020 11:51:30
--- NOTE | 2020-11-23 20:05 | XR_ITS ---
PROCEDURE INFORMATION: Exam: XR Chest Exam date and time: 11/23/2020 8:05 PM Age: 70 years old Clinical indication: Other: General weakness; Additional info: Weakness, fall TECHNIQUE: Imaging protocol: XR of the chest. Views: 1 view. COMPARISON: CR XR CHEST PORTABLE 10/25/2020 7:29 AM FINDINGS: Lungs: Unremarkable. No consolidation. Pleural spaces: Unremarkable. No pleural effusion. No pneumothorax. Heart/Mediastinum: Unremarkable. No cardiomegaly. Bones/joints: Unremarkable. IMPRESSION: Mild left basilar atelectaisis
--- NOTE | 2020-11-23 20:26 | XR_ITS ---
PROCEDURE INFORMATION: Exam: XR Left Knee Exam date and time: 11/23/2020 8:26 PM Age: 70 years old Clinical indication: Injury or trauma; Fall; Blunt trauma; Knee; Left; Injury date: 11/23/2020; Injury details: Fell TECHNIQUE: Imaging protocol: XR Left knee. Views: 3 views. COMPARISON: CA VENOUS DOPPLER LE LT 09/22/2020 6:49 AM FINDINGS: Bones/joints: Tricompartmental degenerative changes are seen worst in the medial compartment. No fracture. No malalignment. Soft tissues: Unremarkable IMPRESSION: No acute osseous injury
--- NOTE | 2020-11-23 20:26 | CT_ITS ---
PROCEDURE INFORMATION: Exam: CT Head Without Contrast Exam date and time: 11/23/2020 8:26 PM Age: 70 years old Clinical indication: Injury or trauma; Fall; Blunt trauma (contusions or hematomas); Without loss of consciousness; Injury date: 11/23/2020; Additional info: Fall, near syncopal episode TECHNIQUE: Imaging protocol: Computed tomography of the head without contrast. Radiation optimization: All CT scans at this facility use at least one of these dose optimization techniques: automated exposure control; mA and/or kV adjustment per patient size (includes targeted exams where dose is matched to clinical indication); or iterative reconstruction. COMPARISON: CT HEAD/BRAIN WO CON 07/13/2020 5:25 PM FINDINGS: Brain: Normal. No hemorrhage. Hypoattenuating white matter again seen. No mass effect. Cerebral ventricles: Mild enlargement again seen. Paranasal sinuses: Visualized sinuses are unremarkable. No fluid levels. Mastoid air cells: Visualized mastoid air cells are well aerated. Bones/joints: Unremarkable. No acute fracture. Soft tissues: Unremarkable. IMPRESSION: No acute intracranial abnormality.
--- NOTE | 2020-11-23 20:26 | XR_ITS ---
PROCEDURE INFORMATION: Exam: XR Pelvis Exam date and time: 11/23/2020 8:26 PM Age: 70 years old Clinical indication: Injury or trauma; Fall; Blunt trauma (contusions or hematomas); Bilateral; Pelvic region; Injury date: 11/23/2020; Injury details: Fell mtrauma protocol TECHNIQUE: Imaging protocol: XR pelvis. Views: 1 or 2 view. COMPARISON: CT ABDOMEN PELVIS W CON 10/25/2020 7:10 AM FINDINGS: Bones/joints: Unremarkable. No acute fracture. Soft tissues: Unremarkable. IMPRESSION: No acute findings.
--- NOTE | 2020-11-23 20:26 | XR_ITS ---
PROCEDURE INFORMATION: Exam: XR Right Knee Exam date and time: 11/23/2020 8:26 PM Age: 70 years old Clinical indication: Injury or trauma; Fall; Blunt trauma; Knee; Right; Injury date: 11/23/2020; Injury details: Fell TECHNIQUE: Imaging protocol: XR Right knee. Views: 3 views. COMPARISON: No relevant prior studies available. FINDINGS: Bones/joints: No fracture identified. Tricompartmental degenerative changes are seen. Soft tissues: Tiny metal artifact in the anterior subcutaneous tissues above the level of the patella. IMPRESSION: No acute findings.
--- NOTE | 2020-11-23 20:29 | HMH.EDWEAK ---
ED Disposition Clinical Impression: UTI (urinary tract infection) Qualifiers: Urinary tract infection type: site unspecified Hematuria presence: without hematuria Qualified Code(s): N39.0 - Urinary tract infection, site not specified Disposition: Admitted as Observation Condition on Discharge: Good - Critical Care Critical Care Time: No Attestation: On 11/23/20, the high probability of a clinically significant, sudden or life threatening deterioration of the following system(s) required my full and direct attention, intervention and personal management. The time I documented below is in addition to time spent performing reported procedures but includes the following listed in this critical care notation. Medical Decision Making - Medical Records Medical records reviewed: Yes: I reviewed the patient's medical records. - Carlos Inquiry Pt receiving controlled substance: No Vital Signs: 11/23/20 19:52 11/23/20 20:51 Temperature 97.4 F L Temperature Source Oral Pulse Rate [Brachial] 62 Pulse Rate [Orthostatic Lying Right] 69 Pulse Rate [Orthostatic Sitting Right] 70 Respiratory Rate 16 Blood Pressure [Orthostatic Lying Right Arm] 169/88 H Blood Pressure [Orthostatic Sitting Right Arm] 143/81 H Blood Pressure [Right Arm] 147/78 H Blood Pressure Mean [Right Arm] 101 Blood Pressure Source [Right Arm] Automatic Cuff Blood Pressure Position [Right Arm] Sitting 02 Sat by Pulse Oximetry 97 Oxygen Delivery Method Room Air - Lab Data Lab results reviewed: Yes: I reviewed the patient's lab results. Lab Results 11/23/20 20:12: WBC 12.6 H, RBC 4.17 L, Hgb 12.7 L, Hct 39.2 L, MCV 94.2 H, MCH 30.5, MCHC 32.4, RDW 18.4 H, Plt Count 160, MPV 8.8, Neut % (Auto) 85.6 H, Lymph % (Auto) 8.6 L, [place] % (Auto) 4.5, Eos % (Auto) 1.1, Baso % (Auto) 0.3, Neut # (Auto) 10.7 H, Lymph # (Auto) 1.1, [place] # (Auto) 0.6, Eos # (Auto) 0.1, Baso # (Auto) 0.0, Total Counted 100, Neutrophils % (Manual) 83 H, Band Neutrophils % 4.0, Lymphocytes % (Manual) 12, Monocytes % (Manual) 1 L, Platelet Estimate Normal, RBC Morphology Normal 11/23/20 20:12: Sodium 138, Potassium 3.7, Chloride 100, Carbon Dioxide 28, Anion Gap 13.7, BUN 17, Creatinine 1.30 H, Estimated Creat Clear 81, Estimated GFR 54 L, Est GFR ( Amer) 66, Glucose 121 H, Calcium 9.7, Troponin I 0.01 11/23/20 20:12: Procalcitonin 0.559 11/23/20 20:12: Magnesium 1.8, C-Reactive Protein 124.2 H 11/23/20 20:12: ESR 62 H 11/23/20 20:12: Lactate 1.9 11/23/20 20:12: NT-Pro-B Natriuret Pep 188 H 11/23/20 21:12: Urine Color Yellow, Urine Appearance Clear, Urine pH 6.0, Ur Specific [place] 1.025, Urine Protein 2+, Urine Glucose (UA) Negative, Urine Ketones Negative, Urine Blood Negative, Urine Nitrate Positive, Urine Bilirubin Negative, Urine Urobilinogen 0.2, Ur Leukocyte Esterase Negative, Urine WBC 5-10, Urine Bacteria 2+ 11/23/20 21:25: SARS-CoV-2 (PCR) Not detected, Influenza A Untype (PCR) Not detected, Influenza Type B (PCR) Not detected Result diagrams: 11/23/20 20:12 11/23/20 20:12 Orders (Tests/Meds): ED MEDICATIONS Generic Name Dose Route Start Last Admin Trade Name Freq PRN Reason Stop Dose Admin Sodium Chloride 1,000 mls @ 999 mls/hr 11/23/20 20:45 11/23/20 21:49 Sod Chlor 0.9% 1000ml Bag IV 11/23/20 21:45 999 mls/hr .Q1H1M CHARLINE Administration Ceftriaxone Sodium 1 gm/ 50 mls @ 100 mls/hr 11/23/20 22:45 11/23/20 23:17 Sodium Chloride IV 12/07/20 22:44 100 mls/hr Q24H CHARLINE Administration ORDERS Category Date Time Status Troponin I Q3H Lab 11/23/20 23:20 Received Troponin I Q3H Lab 11/24/20 02:15 Ordered Blood Culture Stat Micro 11/23/20 20:12 Received Urine Culture Stat Micro 11/23/20 21:12 Received EKG Request [ECG Request by /Reese] Stat Y 11/23/20 20:04 Ordered - Radiology Data #1 Image(s): Chest, Pelvis, Knee Image Reviewed: Yes I have reviewed radiologist's interpretation Preliminary Findings: No Fracture Seen
[2020-11-23 20:41] LABS: Basophils % 0.3 % (0.1-2.0); Eosinophils # 0.1 K/mm3 (0.0-0.4); Eosinophils % 1.1 % (0.1-12.0); Hematocrit 39.2 % (42.0-52.0); Hemoglobin 12.7 g/dL (14.1-18.0); Lymphocytes # 1.1 K/mm3 (0.7-4.5); Lymphocytes % 8.6 % (10-50); Mean Corpuscular HGB Conc 32.4 g/dL (31.8-35.4); Mean Corpuscular Hemoglobin 30.5 pg (27.0-31.2); Mean Corpuscular Volume 94.2 fl (80-94); Mean Platelet Volume 8.8 fl (7.4-10.4); Monocytes # 0.6 K/mm3 (0.1-1.0); Monocytes % 4.5 % (1.7-9.3); Neutrophils # 10.7 K/mm3 (1.8-7.8); Neutrophils % 85.6 % (37.0-80.0); Platelet Count 160 K/mm3 (142-424); Red Blood Count 4.17 M/mm3 (4.60-6.20); Red Cell Distribution Width 18.4 % (11.5-17.5); White Blood Count 12.6 K/mm3 (4.8-10.8)
[2020-11-23 20:44] LABS: MANUAL DIFFERENTIAL MANUAL DIFFERENTIAL (MANUAL DIFF)
[2020-11-23 20:45] LABS: Anion Gap 13.7 mEq/L (5-15); Blood Urea Nitrogen 17 mg/dl (9-20); Calcium 9.7 mg/dl (8.4-10.2); Carbon Dioxide 28 mmol/L (22.0-30.0); Chloride 100 mmol/L (98-107); Creatinine Clearance Estimated 81 mL/min (50-200); Estimated Glomerular Filt Rate 54 ml/min (>60); GFR (African American) 66 ML/MIN (>60); Glucose 121 mg/dl (74-100); Lactic Acid 1.9 mmol/L (0.7-2.1); Potassium 3.7 mmoL/L (3.5-5.1); Sodium 138 mmol/L (136-145)
[2020-11-23 20:48] LABS: Magnesium 1.8 mg/dl (1.6-2.3)
--- NOTE | 2020-11-23 20:49 | CT_ITS ---
PROCEDURE INFORMATION: Exam: CT Cervical Spine Without Contrast Exam date and time: 11/23/2020 8:49 PM Age: 70 years old Clinical indication: Injury or trauma; Fall; Blunt trauma; Injury date: 11/23/2020; Injury details: Fell TECHNIQUE: Imaging protocol: Computed tomography images of the cervical spine without contrast. Radiation optimization: All CT scans at this facility use at least one of these dose optimization techniques: automated exposure control; mA and/or kV adjustment per patient size (includes targeted exams where dose is matched to clinical indication); or iterative reconstruction. COMPARISON: CT HEAD/BRAIN WO CON 11/23/2020 8:43 PM FINDINGS: Bones/joints: No acute fracture. Normal alignment. Discs/Spinal canal/Neural foramina: No significant disc protrusion. No severe spinal canal stenosis. No significant neural foraminal narrowing. Thyroid: Enlarged left thyroid. Recommend non-urgent ultrasound. Lungs: Lung apices are normal. Soft tissues: Tonsilar calcifications. IMPRESSION: 1. No acute fracture. 2. Enlarged left thyroid. Recommend non-urgent ultrasound.
[2020-11-23 20:53] LABS: C-Reactive Protein 124.2 mg/L (0-4)
[2020-11-23 20:56] LABS: Lymphocytes % 12 % (10-50); Monocytes % 1 % (2-9); Neutrophils % 83 % (42-76); Platelet Estimate Normal; RBC Morphology Normal; Total Cells Counted 100
[2020-11-23 20:59] LABS: NT Pro Brain Natriuretic Pep. 188 pg/mL (0-125); Troponin I 0.01 ng/ml (0.00-0.034)
--- NOTE | 2020-11-23 21:01 | PC.NURSE ---
patient in radiology
[2020-11-23 21:03] LABS: Procalcitonin 0.559 ng/mL (0.0-2.0)
[2020-11-23 21:07] LABS: Erythrocyte Sedimentation Rate 62 mm/hr (0-20)
[2020-11-23 21:29] LABS: Coronavirus 19, PCR Not Detected (NotDetected); Influenza A, PCR Not Detected (NotDetected); Influenza B, PCR Not Detected (NotDetected)
[2020-11-23 21:45] LABS: Microscopic, Urine URINE MICROSCOPIC (MICROSCOPIC)
[2020-11-23 22:00] LABS: Appearance,Urine CLEAR (Clear); Bilirubin,Urine Negative (Negative); Blood, Urine Negative (Negative); Color,Urine YELLOW (Yellow); Glucose,Urine (UA) Negative (Negative); Ketones,Urine Negative (Negative); Leukocyte Esterase,Urine Negative (Negative); Nitrate,Urine POSITIVE (Negative); Protein,Urine 2+ (Negative); Specific Gravity, Urine 1.025 (1.005-1.030); Urobilinogen,Urine 0.2 EU/dl (0.2)
[2020-11-23 22:04] LABS: Bacteria,Urine 2+ /lpf
[2020-11-24] VITALS (11 sets, daily range): BP systolic 120–157; BP diastolic 70–91; PULSE 56–93; RESP 15–20; TEMP 36.5–36.9; O2SAT 94–99; BMI 34.7
[2020-11-24 00:12] LABS: Troponin I < 0.01 ng/ml (0.00-0.034)
--- NOTE | 2020-11-24 00:29 | PC.NURSE ---
PT ARRIVED TO FLOOR VIA STRETCHER FROM ED W/STAFF AT 0028
[2020-11-24 02:32] LABS: Basophils % 0.2 % (0.1-2.0); Eosinophils # 0.2 K/mm3 (0.0-0.4); Eosinophils % 1.6 % (0.1-12.0); Hemoglobin 12.3 g/dL (14.1-18.0); Lymphocytes # 1.1 K/mm3 (0.7-4.5); Lymphocytes % 11.3 % (10-50); Mean Corpuscular HGB Conc 33.2 g/dL (31.8-35.4); Mean Corpuscular Hemoglobin 30.8 pg (27.0-31.2); Mean Corpuscular Volume 92.8 fl (80-94); Mean Platelet Volume 8.6 fl (7.4-10.4); Monocytes # 0.5 K/mm3 (0.1-1.0); Monocytes % 5.2 % (1.7-9.3); Neutrophils # 7.7 K/mm3 (1.8-7.8); Neutrophils % 81.7 % (37.0-80.0); Platelet Count 138 K/mm3 (142-424); Red Blood Count 3.99 M/mm3 (4.60-6.20); Red Cell Distribution Width 18.4 % (11.5-17.5); White Blood Count 9.5 K/mm3 (4.8-10.8)
[2020-11-24 02:44] LABS: Anion Gap 12.5 mEq/L (5-15); Blood Urea Nitrogen 15 mg/dl (9-20); Calcium 9.1 mg/dl (8.4-10.2); Carbon Dioxide 27 mmol/L (22.0-30.0); Chloride 103 mmol/L (98-107); Creatinine Clearance Estimated 105 mL/min (50-200); Estimated Glomerular Filt Rate 74 ml/min (>60); GFR (African American) 89 ML/MIN (>60); Glucose 139 mg/dl (74-100); Magnesium 1.7 mg/dl (1.6-2.3); Potassium 3.5 mmoL/L (3.5-5.1); Sodium 139 mmol/L (136-145)
[2020-11-24 03:03] LABS: Troponin I < 0.01 ng/ml (0.00-0.034)
--- NOTE | 2020-11-24 04:10 | PC.NURSE ---
A&OX4. TOLERATING RA WELL. PT HAS REMAINED IN BED T/O SHIFT. PT WAS ABLE TO SLIDE HIMSELF FROM STRETCHER TO BED WITHOUT DIFFICULTY. PT HAS NOT C/O PAIN THUS FAR. PT HAS TOLERATED SNACKS. PT DID C/O BURNING AROUND HIS F/C. THIS NURSE REMOVED F/C WITH OKAY FROM MD MICHELLE. PT IS ABLE TO USE URINAL WELL. NO OTHER C/O THUS FAR. PT IS IN GOOD SPIRITS. VSS WILL CONTINUE TO MONITOR.
--- NOTE | 2020-11-24 07:18 | HMH.HPDC ---
General - General Admission date:: 11/23/20 Discharge date: 11/24/20 *Admission Date: 11/23/20 *Chief complaint: weakness *History of present illness: Mr. Phillips is a pleasant 70-year-old gentleman with unfortunate history of recurrent admissions monthly for the past 5 months. Conditions have been complicated by his comorbidities including diabetes, heart failure, morbid obesity. Most recent admission was a month ago for C. difficile colitis. Presents this time to the ER due to weakness in his legs. States his legs felt like rubber bands . Denies fever, nausea, vomiting, diarrhea. On assessment in the ER, labs positive for acute kidney injury and urinary tract infection. Given patient's complex medical history, was admitted for observation and initiation of IV antibiotics pending urine micro results. On assessment this morning, he states he feels well. Still little weak. Has been working with physical therapy at home. Remains afebrile and hemodynamically stable during admission so far. Pleasant on interview. [facility] History I have reviewed the patient's past medical history: Yes Medical History: Reports:: Arrhythmia, Asthma, Atrial Fibrillation, Congestive Heart Failure, Chronic Obstructive Pulmonary Disease (COPD), Congenital Heart Disease, Diabetes Mellitus Type 2, Hyperlipidemia, Hypertension, Palpitations, Transient Ischemic Attacks (TIA) Denies:: Cancer, Diabetes Mellitus Type 1, Home Oxygen, Internal Pacemaker, MRSA, Seizures *Have you ever received a pneumonia vaccine?: Yes *Have you received a flu vaccine this season?: Yes Other Medical History: Reports: Anemia, Arthritis Laterality Cases: Bilateral: Other Other Surgeries: Yes: No Previous Surgery, Appendectomy, Cardiac Catheterization, Colonoscopy, Coronary Stent, Hernia Repair, Other (back surgery). No: Pacemaker Amputation: No Fractures: No - *Social History Smoking Status: Former smoker Tobacco Type: cigarettes # Packs/Day (cigarettes): 1 #Yrs smoked (if former smoker): 39 Alcohol Intake: never Alcohol Intake Frequency:: other Substance Use Type: denies use *Occupational Status:: retired Housing: house Household Members: spouse *Travel in the last 8 weeks: None Family Hx:: No significant family history Review of Systems - Review of Systems Review of systems:: pertinent systems reviewed and negative unless documented below (14 point review of systems performed, pertinent positives and negatives as per HPI) - *Neurologic Denies localized weakness, Denies seizure-like activity Exam Vital signs and Labs for Last 24 Hours: Temp Pulse Resp BP Pulse Ox 98 F 58 L 17 120/74 97 11/24/20 04:00 11/24/20 04:00 11/24/20 04:00 11/24/20 04:00 11/24/20 04:00 Laboratory Results - last 24 hr 11/23/20 20:12: WBC 12.6 H, RBC 4.17 L, Hgb 12.7 L, Hct 39.2 L, MCV 94.2 H, MCH 30.5, MCHC 32.4, RDW 18.4 H, Plt Count 160, MPV 8.8, Neut % (Auto) 85.6 H, Lymph % (Auto) 8.6 L, [place] % (Auto) 4.5, Eos % (Auto) 1.1, Baso % (Auto) 0.3, Neut # (Auto) 10.7 H, Lymph # (Auto) 1.1, [place] # (Auto) 0.6, Eos # (Auto) 0.1, Baso # (Auto) 0.0, Total Counted 100, Neutrophils % (Manual) 83 H, Band Neutrophils % 4.0, Lymphocytes % (Manual) 12, Monocytes % (Manual) 1 L, Platelet Estimate Normal, RBC Morphology Normal 11/23/20 20:12: Sodium 138, Potassium 3.7, Chloride 100, Carbon Dioxide 28, Anion Gap 13.7, BUN 17, Creatinine 1.30 H, Estimated Creat Clear 81, Estimated GFR 54 L, Est GFR ( Amer) 66, Glucose 121 H, Calcium 9.7, Troponin I 0.01 11/23/20 20:12: Procalcitonin 0.559 11/23/20 20:12: Magnesium 1.8, C-Reactive Protein 124.2 H 11/23/20 20:12: ESR 62 H 11/23/20 20:12: Lactate 1.9 11/23/20 20:12: NT-Pro-B Natriuret Pep 188 H 11/23/20 21:12: Urine Color Yellow, Urine Appearance Clear, Urine pH 6.0, Ur Specific [place] 1.025, Urine Protein 2+, Urine Glucose (UA) Negative, Urine Ketones Negative, Urine Blood Negative, Urine Nitrate Positive, Urine Bilirubin Negative, Urine Urobilinog
--- NOTE | 2020-11-24 09:52 | HMH.PHAINT ---
MEDICATION RECONCILIATION COMPLETE USING RECENT DISCHARGE LIST AND EXTERNAL PHARMACY FILL HISTORY.
--- NOTE | 2020-11-24 12:21 | HMH.PTEV ---
Physical Therapy Evaluation Rehab PT IP Evaluation Start: 11/24/20 08:14 Freq: ONCE Status: Active Protocol: Document 11/24/20 12:04 SHIRLEY (Rec: 11/24/20 12:21 SHIRLEY [id number]) Subjective/History History History Pt is 70 year old male admitted to [facility] after recent falls at home. Subjective Subjective Pt reports minimal pain. Pt reports he lives in one level home with . Pt stated he wanted to get up and walk in the room this morning. Eval completed by HUSSAIN Sharp . Rehab PT IP Eval Objective Appearance Patient Behavior Appropriate,Cooperative Patient Orientation Place,Name,Birthday,Year Difficulty following instructions none Speech Pattern Clear,Appropriate,Coherent Ambulation Patient Able to Ambulate Yes Ambulation Observation IP General Gait Pattern Observation Wide Based Gait,Shuffling Step Ambulation Distance (feet) 40 Ambulation Assistive Device Rolling Walker Ambulation Ability Contact Guard/Hand Hold Balance Ability to Arise Able, uses arms to help Sitting Balance Steady, safe Standing Balance Unsteady Dynamic Sitting Balance Ability Good Dynamic Standing Balance Ability Poor Transfers Chair Transfer Ability Supervision/Stand by Sit to Stand Chair Transfer Ability Contact Guard/Hand Hold MMT All Extremities PT MMT WFL Rehab PT IP prob,goals,plan Problems Date of Evaluation: 11/24/20 PT IP Problems Transfers,Gait,Balance,Safety Rehab Potential Rehab Potential Fair Equipment Needs Assistive Devices Rolling / Wheeled Walker Plan PT Intervention Plan Transfers,Gait,Balance,Safety, Therapeutic Exercise PT Plan Frequency BID Duration LOS Discharge Goals Sit to Stand Chair Transfer Ability Contact Guard/Hand Hold Ambulation Assistive Device Rolling Walker Ambulation Distance (feet) 45 Discharge Plan PT Discharge Plan Due to poor balance and increased fall risk, pt would benefit from skilled therapy with short term stay in SNF to improve balance and independence. Without skilled therapy, pt is at risk for future falls, wounds, fractures, and increased
--- NOTE | 2020-11-24 12:53 | SW/DCPLANNER ---
Addendum entered by Priscila Stafford 11/25/20 13:49: Yolette with [facility] has reviewed patient information and confirmed services will start this week. Addendum entered by Priscila Stafford 11/25/20 10:11: PT has stated that patient has shown much improvement and could discharge home. I have notified patients and she is fine with this patient discharging home. Home health services will be resumed with [facility]. Patient will discharge home with today. Addendum entered by Priscila Stafford 11/24/20 14:30: Joseline with [facility] has stated that she can accept this patient pending pre cert: has been started. I will call and inform patients and MD. Addendum entered by Priscila Stafford 11/24/20 13:23: Joseline with [facility] is currently reviewing patient information. Original Note: I spoke with patients regarding discharge plans and the need for SNF level of care at time of discharge per PT. stated that patient has discharged to placement in the past and she is interested in [facility]. I explained to that [facility] is not accepting patients at this time. I explained that [facility] has beds and is in network with patients insurance: is agreeable. Patient information/order has been faxed to Joseline with [facility]. I will follow up with Joseline once patient information is reviewed. Patient is medically stable for discharge.
--- NOTE | 2020-11-24 14:55 | HMH.HP ---
*Admission Date: 11/23/20 *Chief complaint: weakness, legs like rubberbands *History of present illness: Mr. Phillips is a pleasant 70-year-old gentleman with unfortunate history of recurrent admissions monthly for the past 5 months. Conditions have been complicated by his comorbidities including diabetes, heart failure, morbid obesity. Most recent admission was a month ago for C. difficile colitis. Presents this time to the ER due to weakness in his legs. States his legs felt like rubber bands . Denies fever, nausea, vomiting, diarrhea. On assessment in the ER, labs positive for acute kidney injury and urinary tract infection. Given patient's complex medical history, was admitted for observation and initiation of IV antibiotics pending urine micro results. On assessment this morning, he states he feels well. Still little weak. Has been working with physical therapy at home. Remains afebrile and hemodynamically stable during admission so far. Kash on interview. [facility] History I have reviewed the patient's past medical history: Yes Medical History: Reports:: Arrhythmia, Asthma, Atrial Fibrillation, Congestive Heart Failure, Chronic Obstructive Pulmonary Disease (COPD), Congenital Heart Disease, Diabetes Mellitus Type 2, Hyperlipidemia, Hypertension, Palpitations, Transient Ischemic Attacks (TIA) Denies:: Cancer, Diabetes Mellitus Type 1, Home Oxygen, Internal Pacemaker, MRSA, Seizures *Have you ever received a pneumonia vaccine?: Yes *Have you received a flu vaccine this season?: Yes Other Medical History: Reports: Anemia, Arthritis Laterality Cases: Bilateral: Other Other Surgeries: Yes: No Previous Surgery, Appendectomy, Cardiac Catheterization, Colonoscopy, Coronary Stent, Hernia Repair, Other (back surgery). No: Pacemaker Amputation: No Fractures: No - *Social History Smoking Status: Former smoker Tobacco Type: cigarettes # Packs/Day (cigarettes): 1 #Yrs smoked (if former smoker): 39 Alcohol Intake: never Alcohol Intake Frequency:: other Substance Use Type: denies use *Occupational Status:: retired Housing: house Household Members: spouse *Travel in the last 8 weeks: None Family Hx:: No significant family history Review of Systems - Review of Systems Review of systems:: pertinent systems reviewed and negative unless documented below (14 point review of systems performed, pertinent positives and negatives as per HPI) - *Neurologic Denies localized weakness, Denies seizure-like activity Meds Home Medications Medication Instructions Recorded Confirmed Type atorvastatin 40 mg tablet 40 mg PO HS #90 tab 10/21/20 11/24/20 Rx carvedilol 12.5 mg tablet 12.5 mg PO BID #180 tab 10/21/20 11/24/20 Rx Amiodarone HCl 400 mg PO BID 10/25/20 11/23/20 History Furosemide [Furosemide 40MG tAB*] 40 mg PO DAILY 10/25/20 11/23/20 History L. Acidophilus/Strept/LA P-[place] 1 cap PO DAILY 10/25/20 11/23/20 History [Jaquelin-Q Probiotic Capsule] Pantoprazole Sodium [Protonix 40mg 40 mg PO BID 10/25/20 11/23/20 History tablet] Rivaroxaban [Xarelto 10mg tablet] 20 mg PO QPMWITHMEAL 10/25/20 11/24/20 History Sacubitril/Valsartan [Entresto 49 1 tab PO BID 10/25/20 11/24/20 History mg-51 mg Tablet] Spironolactone 50 mg PO BID 10/25/20 11/24/20 History Sucralfate [Carafate 1gm Tab] 1 gm PO ACHS 10/25/20 11/24/20 History Allergies Allergy/AdvReac Type Severity Reaction Status Date / Time Penicillins Allergy Verified 10/21/20 13:11 Exam Vital signs and Labs for Last 24 Hours: Temp Pulse Resp BP Pulse Ox 97.9 F 60 17 157/91 H 99 11/24/20 11:41 11/24/20 12:00 11/24/20 11:41 11/24/20 11:41 11/24/20 11:41 Laboratory Results - last 24 hr 11/23/20 20:12: WBC 12.6 H, RBC 4.17 L, Hgb 12.7 L, Hct 39.2 L, MCV 94.2 H, MCH 30.5, MCHC 32.4, RDW 18.4 H, Plt Count 160, MPV 8.8, Neut % (Auto) 85.6 H, Lymph % (Auto) 8.6 L, [place] % (Auto) 4.5, Eos % (Auto) 1.1, Baso % (Auto) 0.3, Neut # (Auto) 10.7 H, Lymph # (Auto)
--- NOTE | 2020-11-24 17:16 | PC.NURSE ---
Pt has been pleasant and cooperative this shift. A&O X4. No complaints of pain. Pt is currently on room air with sats. >90%. Lung CTA. No edema noted. Skin is C/D/I. Telemetry reveals a 1st degree AVB. Pt ambulates with assistance X1 and uses the walker. Pt worked with PT today and sat up in the recliner for several hours. Urine is clear and yellow. No BM thus far this shift. 20 G peripheral IV in the LT forearm is patent and infusing NS @ 75 ML/HR. VSS. Call light within reach. Will continue to monitor.
[2020-11-25] VITALS: BP 106/62; PULSE 56; RESP 20; TEMP 36.8; O2SAT 99
--- NOTE | 2020-11-25 00:36 | PC.NURSE ---
a&ox4. No c/o pain, n/v/d, dizziness or pain. Ambulates with walker standby assist. Tolerates well.
[2020-11-25 04:00] VITALS: BP 135/87; PULSE 59; RESP 16; TEMP 36.4; O2SAT 97
[2020-11-25 07:07] LABS: Basophils % 0.3 % (0.1-2.0); Eosinophils # 0.1 K/mm3 (0.0-0.4); Eosinophils % 1.5 % (0.1-12.0); Hematocrit 36.7 % (42.0-52.0); Hemoglobin 11.5 g/dL (14.1-18.0); Lymphocytes % 15.8 % (10-50); Mean Corpuscular HGB Conc 31.4 g/dL (31.8-35.4); Mean Corpuscular Hemoglobin 30.2 pg (27.0-31.2); Mean Corpuscular Volume 95.9 fl (80-94); Mean Platelet Volume 8.2 fl (7.4-10.4); Monocytes # 0.4 K/mm3 (0.1-1.0); Neutrophils # 4.8 K/mm3 (1.8-7.8); Neutrophils % 75.4 % (37.0-80.0); Platelet Count 142 K/mm3 (142-424); Red Blood Count 3.82 M/mm3 (4.60-6.20); Red Cell Distribution Width 18.5 % (11.5-17.5); White Blood Count 6.3 K/mm3 (4.8-10.8)
[2020-11-25 07:15] LABS: Chloride 104 mmol/L (98-107); Potassium 3.5 mmoL/L (3.5-5.1); Sodium 141 mmol/L (136-145)
[2020-11-25 07:18] LABS: Blood Urea Nitrogen 11 mg/dl (9-20); Creatinine Clearance Estimated 105 mL/min (50-200); Estimated Glomerular Filt Rate 83 ml/min (>60); GFR (African American) 101 ML/MIN (>60)
[2020-11-25 07:19] LABS: Anion Gap 11.5 mEq/L (5-15); Carbon Dioxide 29 mmol/L (22.0-30.0); Glucose 110 mg/dl (74-100)
[2020-11-25 07:42] VITALS: BP 152/89; PULSE 63; RESP 21; TEMP 36.4; O2SAT 97
[2020-11-25 08:00] VITALS: PULSE 63; RESP 21; O2SAT 97
--- NOTE | 2020-11-25 08:05 | HMH.ACPN2 ---
Internal Medicine - PN: Subj *Date: 11/25/20 *Time: 08:47 Interval history: Mr. Phillips did well overnight. Tolerating regular diet. Still requiring significant assistance to get up and ambulate. Physical therapy saw him yesterday, recommended placement. Stable on room air. Complains of some mild dysuria. Afebrile. Exam Vital signs and Labs for Last 24 Hours: Temp Pulse Resp BP Pulse Ox 97.6 F 63 21 152/89 H 97 11/25/20 07:42 11/25/20 07:42 11/25/20 07:42 11/25/20 07:42 11/25/20 07:42 Laboratory Results - last 24 hr 11/25/20 06:40: WBC 6.3 D, RBC 3.82 L, Hgb 11.5 L, Hct 36.7 L, MCV 95.9 H, MCH 30.2, MCHC 31.4 L, RDW 18.5 H, Plt Count 142, MPV 8.2, Neut % (Auto) 75.4, Lymph % (Auto) 15.8, [place] % (Auto) 7.0, Eos % (Auto) 1.5, Baso % (Auto) 0.3, Neut # (Auto) 4.8, Lymph # (Auto) 1.0, [place] # (Auto) 0.4, Eos # (Auto) 0.1, Baso # (Auto) 0.0 11/25/20 06:40: Sodium 141, Potassium 3.5, Chloride 104, Carbon Dioxide 29, Anion Gap 11.5, BUN 11 D, Creatinine 0.90, Estimated Creat Clear 105, Estimated GFR 83, Est GFR ( Amer) 101, Glucose 110 H, Calcium 9.0 I & O for Last 24 hours: Intake & Output 11/22/20 11/23/20 11/24/20 11/25/20 23:59 23:59 23:59 23:59 Intake Total 3486 / 3486 420 / 420 Output Total 1650 / 1650 500 / 500 Balance 1836 / 1836 -80 / -80 Weight 109.939 kg 110 kg Microbiology Reports for the Last 24 Hours: Microbiology 11/23/20 21:12 Urine,Catheterized Urine Culture - Preliminary Gram Negative Rods Narrative: - Constitutional no acute distress, morbidly obese - *Routine HEENT Exam Head: Present: normocephalic Eye: Present: EOMI, PERRL ENT: Present: mucous membranes moist - *Routine Neck Exam Present: supple. Absent: lymphadenopathy - *Routine Respiratory Exam Present: CTA bilaterally - *Routine Cardiovascular Exam Present: RRR - *Routine Abdominal Exam Present: soft, normoactive bowel sounds. Absent: tenderness - *Routine Extremities Exam Absent: cyanosis, clubbing, edema - *Routine Skin Exam Present: warm. Absent: rash - *Routine Neurological Exam Present: alert, oriented X3 Assessment and Plan (1) UTI (urinary tract infection) Status: Acute Qualifiers: Urinary tract infection type: site unspecified Hematuria presence: without hematuria Qualified Code(s): N39.0 - Urinary tract infection, site not specified Category: Medical Code(s): N39.0 - Urinary tract infection, site not specified (2) Acute kidney injury Status: Resolved Category: Medical Code(s): N17.9 - Acute kidney failure, unspecified (3) HTN (hypertension) Status: Chronic Category: Medical Code(s): I10 - Essential (primary) hypertension (4) Atrial fibrillation Status: Chronic Qualifiers: Category: Medical Code(s): I48.91 - Unspecified atrial fibrillation (5) Obesity (BMI 30-39.9) Problem details: complicates all aspects of his care. Status: Chronic Category: Medical Code(s): E66.9 - Obesity, unspecified (6) Systolic CHF with reduced left ventricular function, NYHA class 2 Status: Chronic Category: Medical Code(s): I50.20 - Unspecified systolic (congestive) heart failure - Assessment and plan all Dx Assessment and Plan for all problems:: 70-year-old male with multiple comorbidities admitted for UTI and weakness. Given recurrent hospitalizations essentially monthly for the past 5 months, patient has become more debilitated. Admitted for observation started on IV antibiotics. Culture showing gram-negative rods. Given previous cultures/sensitivities, will continue ceftriaxone pending further speciation and sensitivity. -Physical therapy to continue to work with patient. Appreciate their assistance in placement Recs -Continue home medications for chronic conditions including CHF, diabetes. -Full code -Diabetic/cardiac diet -Patient continues to require inpatient management due
--- NOTE | 2020-11-25 10:35 | HMH.DCSUM ---
General - General Admission date:: 11/23/20 Discharge date: 11/25/20 HPI HPI: Mr. Phillips is a pleasant 70-year-old gentleman with unfortunate history of recurrent admissions monthly for the past 5 months. Conditions have been complicated by his comorbidities including diabetes, heart failure, morbid obesity. Most recent admission was a month ago for C. difficile colitis. Presents this time to the ER due to weakness in his legs. States his legs felt like rubber bands . Denies fever, nausea, vomiting, diarrhea. On assessment in the ER, labs positive for acute kidney injury and urinary tract infection. Given patient's complex medical history, was admitted for observation and initiation of IV antibiotics pending urine micro results. On assessment this morning, he states he feels well. Still little weak. Has been working with physical therapy at home. Remains afebrile and hemodynamically stable during admission so far. Pleasant on interview. Hospital Course Hospital Course: 70-year-old male with multiple comorbidities admitted for UTI and weakness. Given recurrent hospitalizations essentially monthly for the past 5 months, patient has become more debilitated. Admitted for observation started on IV antibiotics. Culture showing Klebsiella oxytosa. Will transition to nitrofurantoin for discharge home. Was treated with 3 doses of ceftriaxone during admission. De-escalation of antibiotics in an attempt to decrease risk for C. difficile given C. difficile just a month ago. -PT assessed patient during admission, initially felt that he needed placement. However over 24 hours he showed drastic improvement in his mobility. Essentially back at baseline. Will discharge home with plan for home health PT. During admission, continues home medications for his chronic conditions including CHF and diabetes. Examined on day of discharge. Medically stable for discharge home Objective Vital signs: Temp Pulse Resp BP Pulse Ox 97.6 F 63 21 152/89 H 97 11/25/20 07:42 11/25/20 08:00 11/25/20 08:00 11/25/20 07:42 11/25/20 08:00 Narrative: - Constitutional no acute distress, morbidly obese, sitting on bedside on exam today - *Routine HEENT Exam Head: Present: normocephalic Eye: Present: EOMI, PERRL ENT: Present: mucous membranes moist - *Routine Neck Exam Present: supple. Absent: lymphadenopathy - *Routine Respiratory Exam Present: CTA bilaterally - *Routine Cardiovascular Exam Present: RRR - *Routine Abdominal Exam Present: soft, normoactive bowel sounds. Absent: tenderness - *Routine Extremities Exam Absent: cyanosis, clubbing, edema - *Routine Skin Exam Present: warm. Absent: rash - *Routine Neurological Exam Present: alert, oriented X3 Results Labs on day of discharge: Labs from last 24 hours 11/25/20 11/25/20 06:40 06:40 WBC 6.3 D RBC 3.82 L Hgb 11.5 L Hct 36.7 L MCV 95.9 H MCH 30.2 MCHC 31.4 L RDW 18.5 H Plt Count 142 MPV 8.2 Neut % (Auto) 75.4 Lymph % (Auto) 15.8 [place] % (Auto) 7.0 Eos % (Auto) 1.5 Baso % (Auto) 0.3 Neut # (Auto) 4.8 Lymph # (Auto) 1.0 [place] # (Auto) 0.4 Eos # (Auto) 0.1 Baso # (Auto) 0.0 Sodium 141 Potassium 3.5 Chloride 104 Carbon Dioxide 29 Anion Gap 11.5 BUN 11 D Creatinine 0.90 Estimated Creat Clear 105 Estimated GFR 83 Est GFR ( Amer) 101 Glucose 110 H Calcium 9.0 DS: Diagnosis - Discharge Diagnosis (1) UTI (urinary tract infection) Status: Acute (2) Acute kidney injury Status: Resolved (3) HTN (hypertension) Status: Chronic (4) Atrial fibrillation Status: Chronic (5) Obesity (BMI 30-39.9) Status: Chronic Problem details: complicates all aspects of his care. (6) Systolic CHF with reduced left ventricular function, NYHA class 2 Status: Chronic Discharge Plan - Patient Discharge Instructions ACTIVITY: Continue c
[2020-11-25 11:49] VITALS: BP 117/73; PULSE 57; RESP 20; TEMP 36.6; O2SAT 96
== END 2020-11-25 14:08 | disposition home or self-care (01) ==
LOC: ER 20:27 → 2ND 23:23
PROVIDERS: Internal Medicine Adolescent Medicine; Admitting Provider Internal Medicine Adolescent Medicine; Emergency Provider Emergency Medicine; PCP Internal Medicine Adolescent Medicine; Visit Provider Internal Medicine Adolescent Medicine
DX: N39.0 Urinary tract infection, site not specified (principal); Z20.822 Contact with and (suspected) exposure to COVID-19; Z79.01 Long term (current) use of anticoagulants; Z95.5 Presence of coronary angioplasty implant and graft; I50.22 Chronic systolic (congestive) heart failure; I11.0 Hypertensive heart disease with heart failure; I48.91 Unspecified atrial fibrillation; E11.9 Type 2 diabetes mellitus without complications; J44.9 Chronic obstructive pulmonary disease, unspecified; Z79.899 Other long term (current) drug therapy; N17.9 Acute kidney failure, unspecified
CPT/HCPCS: G0378; 36415; 70450; 71045; 72125; 72170; 73562; 80048; 81001; 83605; 83735; 83880; 84145; 84484; 85007; 85025; 85651; 86140; 87040; 87086; 87088; 87186; 93005; 96365; 96366; 97116; 97162; 99285; U0003

== ENCOUNTER → 2020-12-02 14:16 | Outpatient (CLI) | payer MEDICARE, SELFPAY ==
[2020-12-02 14:59] LABS: Basophils % 0.2 % (0.1-2.0); Hematocrit 41.3 % (42.0-52.0); Hemoglobin 13.2 g/dL (14.1-18.0); Lymphocytes % 8.6 % (10-50); Mean Corpuscular HGB Conc 31.9 g/dL (31.8-35.4); Mean Corpuscular Hemoglobin 30.6 pg (27.0-31.2); Mean Corpuscular Volume 95.8 fl (80-94); Monocytes % 3.6 % (1.7-9.3); Neutrophils # 10.4 K/mm3 (1.8-7.8); Neutrophils % 86.6 % (37.0-80.0); Platelet Count 225 K/mm3 (142-424); Red Blood Count 4.32 M/mm3 (4.60-6.20); Red Cell Distribution Width 17.8 % (11.5-17.5)
[2020-12-02 15:00] LABS: Eosinophils # 0.1 K/mm3 (0.0-0.4); Monocytes # 0.4 K/mm3 (0.1-1.0)
[2020-12-02 15:06] LABS: MANUAL DIFFERENTIAL MANUAL DIFFERENTIAL (MANUAL DIFF)
[2020-12-02 15:15] LABS: Anisocytosis 1+; Eosinophils % 1 % (0-3); Hypochromasia 1+; Lymphocytes % 7 % (10-50); Macrocytosis 1+; Monocytes % 7 % (2-9); Neutrophils % 85 % (42-76); Platelet Estimate Normal; Total Cells Counted 100
[2020-12-02 16:08] LABS: Alanine Aminotransferase 17 U/L (12-78); Albumin Level 3.7 g/dl (3.5-5.0); Alkaline Phosphatase 93 U/L (38-126); Anion Gap 16.4 mEq/L (5-15); Aspartate Amino Transferase 22 U/L (17-59); Bilirubin,Direct 0.5 mg/dl (0.0-0.4); Bilirubin,Indirect 0.1 mg/dL (0.0-0.9); Bilirubin,Total 0.6 mg/dl (0.2-1.3); Bilirubin,Unconjugated 0.1 mg/dL (0.0-1.1); Blood Urea Nitrogen 12 mg/dl (9-20); Calcium 9.4 mg/dl (8.4-10.2); Carbon Dioxide 29 mmol/L (22.0-30.0); Chloride 99 mmol/L (98-107); Estimated Glomerular Filt Rate 66 ml/min (>60); GFR (African American) 80 ML/MIN (>60); Glucose 125 mg/dl (74-100); Potassium 3.4 mmoL/L (3.5-5.1); Sodium 141 mmol/L (136-145); Total Protein,Serum 7.1 g/dl (6.3-8.2)
[2020-12-02 16:25] LABS: Free Thyroxine Index 4.8 ug/dL (5.93-13.13); T4 (Thyroxine) 14.2 ug/dl (5.53-11.0); Triiodothryronine (T3) Uptake 34 % (23.5-40.5)
[2020-12-02 16:39] LABS: Thyroid Stimulating Hormone 0.84 uIU/mL (0.465-4.68)
[2020-12-04 17:48] LABS: C difficile Toxins AB, EIA Positive (Negative)
== END ==
PROVIDERS: Visit Provider Nurse Practitioner Family
DX: I11.0 Hypertensive heart disease with heart failure; I35.0 Nonrheumatic aortic (valve) stenosis; I35.1 Nonrheumatic aortic (valve) insufficiency; I48.0 Paroxysmal atrial fibrillation; I50.20 Unspecified systolic (congestive) heart failure; N28.9 Disorder of kidney and ureter, unspecified; R60.0 Localized edema; D50.0 Iron deficiency anemia secondary to blood loss (chronic)
CPT/HCPCS: 36415; 80048; 80076; 84436; 84443; 84479; 85007; 85025; 87045; 87324

== ENCOUNTER 2020-12-05 09:55 | Emergency (ER) | payer MEDICARE, SELFPAY ==
[2020-12-05 09:56] VITALS: BP 121/79; PULSE 69; RESP 16; TEMP 36.9; O2SAT 98; BMI 34.4
--- NOTE | 2020-12-05 10:06 | HMH.EDGENADL ---
ED Disposition Clinical Impression: Clostridium difficile infection Disposition: Home, Self-Care Condition on Discharge: Good Additional Instructions: Continue taking your vancomycin as directed. Follow-up with your regular doctor on Tuesday. Return the emergency department for fever, blood in your stool, chest pain or shortness of breath. Referrals: Henrry Vegas MD [Primary Care Provider] - 12/08/20 (call for an appt) Time of Disposition: 14:02 - Critical Care Critical Care Time: No Attestation: On 12/05/20, the high probability of a clinically significant, sudden or life threatening deterioration of the following system(s) required my full and direct attention, intervention and personal management. The time I documented below is in addition to time spent performing reported procedures but includes the following listed in this critical care notation. Medical Decision Making - Medical Records Medical records reviewed: Yes: I reviewed the patient's medical records. - Carlos Inquiry Pt receiving controlled substance: No Vital Signs: 12/05/20 09:56 Temperature 98.5 F Temperature Source Oral Pulse Rate [Radial] 69 Respiratory Rate 16 Blood Pressure [Right Arm] 121/79 Blood Pressure Mean [Right Arm] 93 Blood Pressure Position [Right Arm] Sitting 02 Sat by Pulse Oximetry 98 Oxygen Delivery Method Room Air - Lab Data Lab results reviewed: Yes: I reviewed the patient's lab results. Lab Results 12/05/20 11:51: WBC 9.6, RBC 4.06 L, Hgb 12.4 L, Hct 39.6 L, MCV 97.5 H, MCH 30.7, MCHC 31.5 L, RDW 17.8 H, Plt Count 244, MPV 9.1, Neut % (Auto) 77.1, Lymph % (Auto) 14.6, [place] % (Auto) 6.1, Eos % (Auto) 2.0, Baso % (Auto) 0.3, Neut # (Auto) 7.4, Lymph # (Auto) 1.4, [place] # (Auto) 0.6, Eos # (Auto) 0.2, Baso # (Auto) 0.0 12/05/20 12:37: Sodium 142, Potassium 4.0, Chloride 109 H, Carbon Dioxide 20 L, Anion Gap 17.0 H, BUN 14, Creatinine 1.20, Estimated Creat Clear 87, Estimated GFR 60, Est GFR ( Amer) 72, Glucose 103 H, Calcium 9.2, Total Bilirubin 0.4, AST 30 D, ALT 15, Alkaline Phosphatase 70, Total Protein 6.7, Albumin 3.2 L, Globulin 3.5 H, Albumin/Globulin Ratio 0.9 L Result diagrams: 12/05/20 11:51 12/05/20 12:37 Medical Decision Narrative: 70yo M evaluated for seizures. Patient in no acute distress on this evaluation. His vital signs are unremarkable, as is his exam. Patient is in no acute distress. He is able to transfer from the wheelchair to the bed and ambulates without difficulty. Routine laboratory studies are collected and reveal a normal WBC and unremarkable chemistry panel. Patient is voiding without difficulty. Discussed with him that did not have a reason to admit him to the hospital at this time. Encouraged him to follow-up with his PCP on Tuesday regarding his C. difficile. He is to continue taking his vancomycin as directed. Patient voiced understanding and agreement with the plan. General Adult HPI - General Stated complaint: dx c-diff Time Seen by Provider: 12/05/20 10:06 Mode of Arrival: Ambulatory Source of Information: Patient Limitations: No Limitations - History of Present Illness HPI narrative: 70yo M presents the emergency department secondary to ECF. Patient reports is his third bout of having the infection. He is taking oral vancomycin as directed. His sent him here because she cannot take care of him. The patient denies any complaint other than feeling tired. He denies any chest pain, shortness of breath. He denies any abdominal pain or distention. Denies any blood in his stool. - Related Data Home Medications Medication Instructions Recorded Confirmed Furosemide [Furosemide 40MG tAB*] 40 mg PO DAILY 10/25/20 12/04/20 L. Acidophilus/Strept/LA P-[place] 1 cap PO DAILY 10/25/20 12/04/20 [Jaquelin-Q Probiotic Capsule] Pantoprazole Sodium [Protonix 40mg 40 mg PO BID 10/25/20 12/04/20 tablet] Sacubitril/Valsartan [Entresto 49 1 tab PO BID 10/25/2011/10
[2020-12-05 12:00] LABS: Basophils % 0.3 % (0.1-2.0); Eosinophils # 0.2 K/mm3 (0.0-0.4); Hematocrit 39.6 % (42.0-52.0); Hemoglobin 12.4 g/dL (14.1-18.0); Lymphocytes # 1.4 K/mm3 (0.7-4.5); Lymphocytes % 14.6 % (10-50); Mean Corpuscular HGB Conc 31.5 g/dL (31.8-35.4); Mean Corpuscular Hemoglobin 30.7 pg (27.0-31.2); Mean Corpuscular Volume 97.5 fl (80-94); Mean Platelet Volume 9.1 fl (7.4-10.4); Monocytes # 0.6 K/mm3 (0.1-1.0); Monocytes % 6.1 % (1.7-9.3); Neutrophils # 7.4 K/mm3 (1.8-7.8); Neutrophils % 77.1 % (37.0-80.0); Platelet Count 244 K/mm3 (142-424); Red Blood Count 4.06 M/mm3 (4.60-6.20); Red Cell Distribution Width 17.8 % (11.5-17.5); White Blood Count 9.6 K/mm3 (4.8-10.8)
[2020-12-05 13:46] LABS: Chloride 109 mmol/L (98-107)
[2020-12-05 13:47] LABS: Sodium 142 mmol/L (136-145)
[2020-12-05 13:49] LABS: Alanine Aminotransferase 15 U/L (12-78); Albumin Level 3.2 g/dl (3.5-5.0); Alkaline Phosphatase 70 U/L (38-126); Aspartate Amino Transferase 30 U/L (17-59); Bilirubin,Total 0.4 mg/dl (0.2-1.3); Blood Urea Nitrogen 14 mg/dl (9-20); Creatinine Clearance Estimated 87 mL/min (50-200); Estimated Glomerular Filt Rate 60 ml/min (>60); GFR (African American) 72 ML/MIN (>60)
[2020-12-05 13:50] LABS: Albumin/Globulin Ratio 0.9 (1.1-1.8); Calcium 9.2 mg/dl (8.4-10.2); Carbon Dioxide 20 mmol/L (22.0-30.0); Globulin 3.5 g/dL (1.3-3.2); Glucose 103 mg/dl (74-100); Total Protein,Serum 6.7 g/dl (6.3-8.2)
--- NOTE | 2020-12-05 15:50 | PC.NURSE ---
PT INCONTINENT OF STOOL. PT CLEANED NEW DEPENDS. PT WANTED CLOTHES PLACED IN TRASH.
[2020-12-05 16:23] VITALS: BP 114/74; PULSE 65; RESP 16; TEMP 36.6; O2SAT 98
== END 2020-12-05 16:26 | disposition home or self-care (01) ==
PROVIDERS: Emergency Provider Family Medicine; PCP Internal Medicine Adolescent Medicine
DX: A04.72 Enterocolitis due to Clostridium difficile, not specified as recurrent (principal); I48.0 Paroxysmal atrial fibrillation; I50.9 Heart failure, unspecified; J44.9 Chronic obstructive pulmonary disease, unspecified; E11.9 Type 2 diabetes mellitus without complications; E78.5 Hyperlipidemia, unspecified; I10 Essential (primary) hypertension; Z87.891 Personal history of nicotine dependence; Z79.899 Other long term (current) drug therapy
CPT/HCPCS: 36415; 80053; 85025; 99282

== ENCOUNTER → 2020-12-22 13:57 | Outpatient (CLI) | payer MEDICARE, SELFPAY ==
--- NOTE | 2020-12-22 13:57 | CT_ITS ---
PROCEDURE: CT LUNG SCREENING CLINICAL INDICATION: lung cancer screening COMPARISON: No exams were available for comparison TECHNIQUE: The exam was performed on a GE Light Speed [address] scanner using 2.90 mGy CTDI. A low dose helical CT CHEST was performed on a multi-detector scanner. All CT scans at the facility use one or more dose reduction, viz: automated exposure control, ma/kV adjustment per patient size (including targeted exams where dose is matched to indication, i.e. head), or iterative reconstruction technique. The LDCT was performed in a facility that meets the criteria for the screening program. Data regarding this exam was submitted to ACR which is an approved registry. The order for this exam indicates that it came as a result of a lung cancer screening counseling shard decision-making visit that included all the elements required of such a visit including smoking cessation. The radiologist interpreting this exam meets the CMS criteria for the LDCT lung cancer screening program. The exam is reported using the Lung-RADS classification scale and reported to the ACR registry. NOTE: This study was performed for the specific purposes of lung cancer screening and is not an alternative to diagnostic chest CT. RADIATION DOSE: CTDI vol(CT dose Index-volume) = 2.90mG DLP (Dose Length Product) = 105.2 mGcm FINDINGS: The left lobe of the thyroid gland is enlarged at 3.7 by 2.3 cm AP and transverse. It is incompletely image in the cephalad caudad dimension. Trachea is slightly deviated toward the right by approximately 1 cm. COPD changes with scattered areas of scarring. No suspicious nodules. No mediastinal or hilar mass. Coronary artery calcification and/or stent noted. Aortic valve calcification present. There is thickening of the pericardium anterior and inferior measuring up to 14 mm in thickness. Degenerative changes are present in the thoracic spine. Small sclerotic area involves the glenoid area on the right nonspecific at approximately 9 x 4 mm OTHER FINDINGS: No other pertinent findings evident. IMPRESSION: Lung-RADS Category 1 Negative Follow-up: Continue annual screening with LDCT in 12 months Enlarged left lobe of the thyroid gland with mild tracheal deviation toward the right Dictated by: Ilir Cartagena MD 01/05/2021 09:21 Ilir Cartagena MD in [facility] 01/05/2021 09:21
[2020-12-22 15:10] VITALS: PULSE 68; PULSE 70
== END ==
PROVIDERS: PCP Internal Medicine Adolescent Medicine; Visit Provider Internal Medicine Pulmonary Disease
DX: Z87.891 Personal history of nicotine dependence (principal); Z12.2 Encounter for screening for malignant neoplasm of respiratory organs; R06.09 Other forms of dyspnea
CPT/HCPCS: 71271; 94060; 94640; 94727; 94729

== ENCOUNTER 2021-01-05 12:51 | Observation (INO) | payer MEDICARE, SELFPAY ==
[2021-01-05 12:53] VITALS: BP 110/64; PULSE 64; RESP 20; TEMP 36.8; O2SAT 94; BMI 31.8
--- NOTE | 2021-01-05 13:07 | XR_ITS ---
PROCEDURE: XR CHEST PORTABLE CLINICAL HISTORY: cough COMPARISON: CR XR CHEST PORTABLE from 09/23/2020 CR XR CHEST PORTABLE from 10/25/2020 CR XR CHEST PORTABLE from 11/23/2020 FINDINGS: The cardiomediastinal silhouette and pulmonary vascularity are within normal limits. The lungs are clear without infiltrates, suspicious nodules, or pleural effusions. No acute bony abnormalities. IMPRESSION: No acute findings. Dictated by: Ilir Cartagena MD 01/05/2021 13:33 Ilir Cartagena MD in [facility] 01/05/2021 13:33
[2021-01-05 13:48] LABS: Basophils # 0.2 K/mm3 (0-0.2); Basophils % 1.2 % (0.1-2.0); Eosinophils # 0.1 K/mm3 (0.0-0.4); Eosinophils % 0.6 % (0.1-12.0); Hemoglobin 12.3 g/dL (14.1-18.0); Lymphocytes # 0.8 K/mm3 (0.7-4.5); Lymphocytes % 4.6 % (10-50); Mean Corpuscular HGB Conc 31.5 g/dL (31.8-35.4); Mean Corpuscular Hemoglobin 30.7 pg (27.0-31.2); Mean Corpuscular Volume 97.5 fl (80-94); Monocytes # 0.7 K/mm3 (0.1-1.0); Monocytes % 3.8 % (1.7-9.3); Neutrophils % 89.8 % (37.0-80.0); Platelet Count 219 K/mm3 (142-424); Red Cell Distribution Width 17.8 % (11.5-17.5); White Blood Count 17.8 K/mm3 (4.8-10.8)
[2021-01-05 13:53] LABS: MANUAL DIFFERENTIAL MANUAL DIFFERENTIAL (MANUAL DIFF)
[2021-01-05 13:55] LABS: Chloride 103 mmol/L (98-107); Potassium 3.2 mmoL/L (3.5-5.1); Sodium 136 mmol/L (136-145)
[2021-01-05 13:57] LABS: Blood Urea Nitrogen 34 mg/dl (9-20); Creatinine Clearance Estimated 46 mL/min (50-200); Estimated Glomerular Filt Rate 30 ml/min (>60); GFR (African American) 36 ML/MIN (>60)
[2021-01-05 13:58] LABS: Alanine Aminotransferase 35 U/L (12-78); Albumin/Globulin Ratio 0.9 (1.1-1.8); Alkaline Phosphatase 86 U/L (38-126); Anion Gap 13.2 mEq/L (5-15); Aspartate Amino Transferase 36 U/L (17-59); Bilirubin,Total 0.2 mg/dl (0.2-1.3); Calcium 9.4 mg/dl (8.4-10.2); Carbon Dioxide 23 mmol/L (22.0-30.0); Globulin 3.3 g/dL (1.3-3.2); Glucose 121 mg/dl (74-100); Total Protein,Serum 6.3 g/dl (6.3-8.2)
[2021-01-05 13:59] LABS: Lipase < 10 U/L (23-300)
[2021-01-05 14:08] LABS: Anisocytosis 1+; Hypochromasia 2+; Lymphocytes % 2 % (10-50); Macrocytosis 1+; Monocytes % 7 % (2-9); Neutrophils % 91 % (42-76); Platelet Estimate Normal; Total Cells Counted 100
--- NOTE | 2021-01-05 14:09 | CT_ITS ---
PROCEDURE: CT ABDOMEN PELVIS WO CON CLINICAL INDICATION: diarrhea abdominal pain COMPARISON: CT CT ABDOMEN PELVIS W CON from 10/25/2020 TECHNIQUE: Axial images obtained with sagittal and coronal reformats. All CT scans at the facility use one or more dose reduction, viz: automated exposure control, ma/kV adjustment per patient size (including targeted exams where dose is matched to indication, i.e. head), or iterative reconstruction technique. FINDINGS: LOWER THORAX: Minimal atelectatic change in the right lung base. There is thickening of the pericardium at 17 mm consistent with small pericardial effusion ABDOMEN & PELVIS: There is a densely calcified nodule in the right hepatic lobe segment 8 in the capsular region. The liver is otherwise unremarkable. No radiopaque gallstones. The spleen, and pancreas have an unremarkable unenhanced appearance. There is bilateral adrenal enlargement consistent with adenomatous involvement not significantly changed. No renal or ureteral calculi. No change in the 6 cm indeterminate mass along the lower pole of the left kidney measuring 39 Hounsfield units. No change in the indeterminate 15 mm nodule in the upper pole of the right kidney at 35 Hounsfield units. There remains diffuse colonic thickening from the cecum to the rectum. This does appear worse compared to the previous exam. There is mild haziness of the pericolic fat. No obvious pneumatosis. No portal venous gas. Stranding of the pericolic fat also appears slightly worse. There is a small amount fluid in the right lower quadrant. There is colonic diverticulosis. No definite inflamed diverticulum is apparent although an isolated area of diverticulitis would be difficult to exclude due to the stranding of the pericolic fat and the diffuse thickening. No evidence of small-bowel obstruction. There is a tiny umbilical hernia containing fat. Postsurgical changes are present in the right inguinal region. Nonvisualization of the appendix. Prior posterior fusion at L4 and L5 with degenerative changes in the lumbar spine. IMPRESSION: 1. Diffuse colonic thickening with stranding of the pericolic fat consistent with diffuse colitis which appears worse compared to the previous exam with some increase in thickening and increase in the stranding of the pericolic fat. 2. Pancolonic diverticulosis. An isolated area of diverticulitis would be difficult to exclude secondary to the diffuse colonic thickening. 3. Small pericardial effusion 4. Indeterminate bilateral renal lesions not significantly changed. MRI of the kidneys without and with gadolinium enhancement suggested for further evaluation. Dictated by: Ilir Cartagena MD 01/05/2021 15:16 Ilir Cartagena MD in [facility] 01/05/2021 15:16
[2021-01-05 14:10] LABS: Troponin I 0.02 ng/ml (0.00-0.034)
[2021-01-05 14:29] LABS: Thyroid Stimulating Hormone 0.78 uIU/mL (0.465-4.68)
--- NOTE | 2021-01-05 14:55 | HMH.EDNVD ---
ED Disposition Clinical Impression: Dehydration, C. difficile colitis, Acute kidney injury HTN (hypertension) Qualifiers: Hypertension type: primary hypertension Qualified Code(s): I10 - Essential (primary) hypertension Disposition: Admitted As Inpatient Condition on Discharge: Fair Referrals: Henrry Vegas MD [Primary Care Provider] - - Critical Care Critical Care Time: No Attestation: On 01/05/21, the high probability of a clinically significant, sudden or life threatening deterioration of the following system(s) required my full and direct attention, intervention and personal management. The time I documented below is in addition to time spent performing reported procedures but includes the following listed in this critical care notation. Medical Decision Making - Medical Records Medical records reviewed: Yes: I reviewed the patient's medical records. - Carlos Inquiry Pt receiving controlled substance: No Vital Signs: 01/05/21 12:53 Temperature 98.2 F Temperature Source Oral Pulse Rate [Left Radial] 64 Respiratory Rate 20 Blood Pressure [Right Arm] 110/64 Blood Pressure Mean [Right Arm] 79 Blood Pressure Source [Right Arm] Automatic Cuff Blood Pressure Position [Right Arm] Sitting 02 Sat by Pulse Oximetry 94 L Oxygen Delivery Method Room Air - Lab Data Lab Results 01/05/21 13:40: WBC 17.8 H, RBC 4.00 L, Hgb 12.3 L, Hct 39.0 L, MCV 97.5 H, MCH 30.7, MCHC 31.5 L, RDW 17.8 H, Plt Count 219, MPV 9.0, Neut % (Auto) 89.8 H, Lymph % (Auto) 4.6 L, [place] % (Auto) 3.8, Eos % (Auto) 0.6, Baso % (Auto) 1.2, Neut # (Auto) 16.0 H, Lymph # (Auto) 0.8, [place] # (Auto) 0.7, Eos # (Auto) 0.1, Baso # (Auto) 0.2, Total Counted 100, Neutrophils % (Manual) 91 H, Lymphocytes % (Manual) 2 L, Monocytes % (Manual) 7, Platelet Estimate Normal, Hypochromasia 2+, Anisocytosis 1+, Macrocytosis 1+ 01/05/21 13:40: Sodium 136, Potassium 3.2 L, Chloride 103, Carbon Dioxide 23, Anion Gap 13.2, BUN 34 H, Creatinine 2.20 H, Estimated Creat Clear 46, Estimated GFR 30 L, Est GFR ( Amer) 36 L, Glucose 121 H, Calcium 9.4, Total Bilirubin 0.2, AST 36, ALT 35, Alkaline Phosphatase 86, Troponin I 0.02, Total Protein 6.3, Albumin 3.0 L, Globulin 3.3 H, Albumin/Globulin Ratio 0.9 L, Lipase < 10 L, TSH 0.78 Result diagrams: 01/05/21 13:40 01/05/21 13:40 Orders (Tests/Meds): ED MEDICATIONS Generic Name Dose Route Start Last Admin Trade Name Freq PRN Reason Stop Dose Admin Metronidazole 500 mg in 100 mls @ 100 mls/hr 01/05/21 16:00 Flagyl 500mg/100ml Ivpb IV 01/19/21 15:59 Q8H CHARLINE Discontinued Medications Generic Name Dose Route Start Last Admin Trade Name Freq PRN Reason Stop Dose Admin Sodium Chloride 1,000 mls @ 999 mls/hr 01/05/21 14:15 01/05/21 14:30 Sod Chlor 0.9% 1000ml Bag IV 01/05/21 15:15 999 mls/hr .Q1H1M CHARLINE Administration ORDERS Category Date Time Status Rapid PCR Covid and Flu A/B Stat Lab 01/05/21 15:35 Ordered Troponin I Q3H Lab 01/05/21 16:15 Ordered Troponin I Q3H Lab 01/05/21 19:15 Ordered - CT Data CT Scan: Abdomen, Pelvis Time Received: 16:[address] Reviewed: Yes: I have reviewed the patient's CT results, I have viewed the radiologist's interpretation Findings Narrative: IMPRESSION: 1. Diffuse colonic thickening with stranding of the pericolic fat consistent with diffuse colitis which appears worse compared to the previous exam with some increase in thickening and increase in the stranding of the pericolic fat. 2. Pancolonic diverticulosis. An isolated area of diverticulitis would be difficult to exclude secondary to the diffuse colonic thickening. 3. Small pericardial effusion 4. Indeterminate bilateral renal lesions not significantly changed. MRI of the kidneys without and with gadolinium enhancement suggested for further evaluation. - Reevaluation(s) Time: 16:02 Reevaluation #1: On reevaluation, patient does have CT findings consis
[2021-01-05 17:51] LABS: Coronavirus 19, PCR Not Detected (NotDetected); Influenza A, PCR Not Detected (NotDetected); Influenza B, PCR Not Detected (NotDetected)
--- NOTE | 2021-01-05 18:02 | HMH.HP ---
*Admission Date: 01/05/21 *Chief complaint: Worsening diarrhea with fall *History of present illness: Is a 71-year-old male presented to the emergency department with some generalized weakness and diarrhea. The patient states that he has been battling with bouts of diarrhea for the last few months. He was diagnosed with C. difficile. Patient has been on oral vancomycin since then. Patient dates like his symptoms got better for few days, however the last week he has been having worsening diarrhea. States that is clear in nature. Is not have any associated abdominal pain. Patient states that over the last 3 to 4 days he has just had some weakness. Has had difficulty getting out of bed because he is so weak and rundown. He denies any headache or change in vision. No focal weakness. No chest pain or shortness of breath. Denies any fevers or chills. Above note per ER, notes that patient was in the bathroom and she did not hear him for a while and she went in to find him draped over a chair, he is was conscious but states that he could not get up because his legs were so weak. Brought to the emergency department, work-up revealed leukocytosis, worsening appearing colitis on CT scan and ongoing diarrhea. I asked the ER to start IV Flagyl, resume p.o. vancomycin and admit to hospital for further evaluation. [facility] History I have reviewed the patient's past medical history: Yes Medical History: Reports:: Arrhythmia, Asthma, Atrial Fibrillation, Congestive Heart Failure, Chronic Obstructive Pulmonary Disease (COPD), Congenital Heart Disease, Diabetes Mellitus Type 2, Hyperlipidemia, Hypertension, Palpitations, Transient Ischemic Attacks (TIA) Denies:: Cancer, Diabetes Mellitus Type 1, Home Oxygen, Internal Pacemaker, MRSA, Seizures *Have you ever received a pneumonia vaccine?: No *Have you received a flu vaccine this season?: No Other Medical History: Reports: Anemia, Arthritis Laterality Cases: Bilateral: Other Other Surgeries: Yes: No Previous Surgery, Appendectomy, Cardiac Catheterization, Colonoscopy, Coronary Stent, Hernia Repair, Other (back surgery). No: Pacemaker Amputation: No Fractures: No - *Social History Smoking Status: Former smoker Tobacco Type: cigarettes # Packs/Day (cigarettes): 1 #Yrs smoked (if former smoker): 39 Alcohol Intake: never Alcohol Intake Frequency:: other Substance Use Type: denies use *Occupational Status:: retired Housing: house Household Members: spouse *Travel in the last 8 weeks: None Family Hx:: Hyperlipidemia, Hypertension Review of Systems - Review of Systems Review of systems:: pertinent systems reviewed and negative unless documented below - *Neurologic Reports weakness, Denies headache(s) Meds Home Medications Medication Instructions Recorded Confirmed Type atorvastatin 40 mg tablet 40 mg PO HS #90 tab 10/21/20 01/05/21 Rx carvedilol 12.5 mg tablet 12.5 mg PO BID #180 tab 10/21/20 01/05/21 Rx Furosemide [Furosemide 40MG tAB*] 40 mg PO DAILY 10/25/20 01/05/21 History L. Acidophilus/Strept/LA P-[place] 1 cap PO DAILY 10/25/20 01/05/21 History [Jaquelin-Q Probiotic Capsule] Pantoprazole Sodium [Protonix 40mg 40 mg PO BID 10/25/20 01/05/21 History tablet] Sacubitril/Valsartan [Entresto 49 1 tab PO BID 10/25/20 01/05/21 History mg-51 mg Tablet] Spironolactone 50 mg PO BID 10/25/20 01/05/21 History Sucralfate [Carafate 1gm Tab] 1 gm PO ACHS 10/25/20 01/05/21 History amiodarone 200 mg tablet 200 mg PO BID tab 12/02/20 01/05/21 History rivaroxaban 20 mg tablet 20 mg PO HS tab 12/02/20 01/05/21 History albuterol sulfate 90 mcg/actuation 1 inh INHALATION Q6H PRN 90 Days 12/04/20 01/05/21 Rx aerosol inhaler #8.5 g Allergies Allergy/AdvReac Type Severity Reaction Status Date / Time Penicillins Allergy Verified 12/04/20 14:14 Exam Vital signs and Labs for Last 24 Hours: Temp Pulse Resp BP Pulse Ox 98.2 F 64 20 110/64 94 L 01/05/21 12:53 01/05/21
[2021-01-05 19:02] VITALS: BP 119/89; PULSE 65; RESP 16; TEMP 36.7; O2SAT 93; BMI 34.2
[2021-01-05 19:05] VITALS: BP 108/75; PULSE 66; RESP 18; TEMP 36.7; O2SAT 97
[2021-01-05 20:00] VITALS: O2SAT 99
--- NOTE | 2021-01-06 03:31 | PC.NURSE ---
Pt is A/O x4. No acute changes t/o shift. Pt had x2 loose BM this shift. Pt remains on RA. Lungs are CTA. IV is patent infusing NS @ 100ml/hr. Pt abdomen remains tender to touch. VSS, will continue to monitor.
[2021-01-06 04:00] VITALS: BP 136/68; PULSE 74; RESP 18; TEMP 36.6; O2SAT 96
[2021-01-06 05:03] VITALS: BMI 34.1
--- NOTE | 2021-01-06 06:38 | HMH.ACPN2 ---
Internal Medicine - PN: Subj *Date: 01/06/21 *Time: 08:17 Interval history: Patient sitting up at bedside on exam this morning. Eating breakfast. Continues to have watery diarrhea. States over the past couple days it just broke loose . Denies fever, nausea, vomiting, shortness of breath. Pleasant on interview. Reviewed labs from this morning. Exam Vital signs and Labs for Last 24 Hours: Temp Pulse Resp BP Pulse Ox 97.9 F 74 18 136/68 96 01/06/21 04:00 01/06/21 04:00 01/06/21 04:00 01/06/21 04:00 01/06/21 04:00 Laboratory Results - last 24 hr 01/05/21 13:40: WBC 17.8 H, RBC 4.00 L, Hgb 12.3 L, Hct 39.0 L, MCV 97.5 H, MCH 30.7, MCHC 31.5 L, RDW 17.8 H, Plt Count 219, MPV 9.0, Neut % (Auto) 89.8 H, Lymph % (Auto) 4.6 L, Payne % (Auto) 3.8, Eos % (Auto) 0.6, Baso % (Auto) 1.2, Neut # (Auto) 16.0 H, Lymph # (Auto) 0.8, Payne # (Auto) 0.7, Eos # (Auto) 0.1, Baso # (Auto) 0.2, Total Counted 100, Neutrophils % (Manual) 91 H, Lymphocytes % (Manual) 2 L, Monocytes % (Manual) 7, Platelet Estimate Normal, Hypochromasia 2+, Anisocytosis 1+, Macrocytosis 1+ 01/05/21 13:40: Sodium 136, Potassium 3.2 L, Chloride 103, Carbon Dioxide 23, Anion Gap 13.2, BUN 34 H, Creatinine 2.20 H, Estimated Creat Clear 46, Estimated GFR 30 L, Est GFR ( Amer) 36 L, Glucose 121 H, Calcium 9.4, Total Bilirubin 0.2, AST 36, ALT 35, Alkaline Phosphatase 86, Troponin I 0.02, Total Protein 6.3, Albumin 3.0 L, Globulin 3.3 H, Albumin/Globulin Ratio 0.9 L, Lipase < 10 L, TSH 0.78 01/05/21 17:44: SARS-CoV-2 (PCR) Not detected, Influenza A Untype (PCR) Not detected, Influenza Type B (PCR) Not detected I & O for Last 24 hours: Intake & Output 01/03/21 01/04/21 01/05/21 01/06/21 23:59 23:59 23:59 23:59 Intake Total 1000 / 1000 Balance 1000 / 1000 Weight 108.125 kg 108.227 kg Narrative: - Constitutional no acute distress, obese - *Routine HEENT Exam Head: Present: normocephalic Eye: Present: EOMI, PERRL ENT: Present: mucous membranes dry - *Routine Neck Exam Present: supple. Absent: lymphadenopathy - *Routine Respiratory Exam Present: CTA bilaterally - *Routine Cardiovascular Exam Present: murmur, irregular rhythm - *Routine Abdominal Exam Present: soft, normoactive bowel sounds, tenderness, distended - *Routine Extremities Exam Present: 1+ edema improved from baseline. Absent: cyanosis, clubbing - *Routine Skin Exam Present: warm. Absent: rash - *Routine Neurological Exam Present: alert, oriented X3 Assessment and Plan (1) Acute kidney injury Status: Acute Category: Medical Code(s): N17.9 - Acute kidney failure, unspecified (2) C. difficile colitis Status: Acute Category: Medical Code(s): A04.72 - Enterocolitis due to Clostridium difficile, not specified as recurrent (3) Dehydration Status: Acute Category: Medical Code(s): E86.0 - Dehydration (4) CAD (coronary artery disease) Status: Chronic Qualifiers: Category: Medical Code(s): I25.10 - Atherosclerotic heart disease of [place] coronary artery without angina pectoris (5) Chronic atrial fibrillation Status: Chronic Category: Medical Code(s): I48.20 - Chronic atrial fibrillation, unspecified (6) Diastolic dysfunction Status: Chronic Category: Medical Code(s): I51.89 - Other ill-defined heart diseases (7) HTN (hypertension) Status: Chronic Qualifiers: Hypertension type: primary hypertension Qualified Code(s): I10 - Essential (primary) hypertension Category: Medical Code(s): I10 - Essential (primary) hypertension (8) Obesity (BMI 30-39.9) Problem details: complicates all aspects of his care. Status: Chronic Category: Medical Code(s): E66.9 - Obesity, unspecified - Assessment and plan all Dx Assessment and Plan for all problems:: Mr. Phillips is a 71-year-old male with recurrent C. difficile colitis. Presents with similar presentation as previous episodes. Is not bubba
--- NOTE | 2021-01-06 07:49 | HMH.PHAVTE ---
[facility] Pharmacy VTE Monitoring - Patient Demographics Admission date: 01/05/21 Report Date: 01/06/21 Time: 07:49 Allergies/Adverse Reactions: Patient Allergies Penicillins Allergy (Verified 12/04/20 14:14) Height: 1.78 m Weight: 108.227 kg Patient Problems: Current Active Problems C. difficile colitis (Acute) Dehydration (Acute) Acute kidney injury (Acute) CAD (coronary artery disease) (Chronic) HTN (hypertension) (Chronic) Diastolic dysfunction (Chronic) Chronic atrial fibrillation (Chronic) - VTE Risk Labs: VTE Related Lab Results Hgb 12.3 g/dL (14.1-18.0) L 01/05/21 13:40 Hct 39.0 % (42.0-52.0) L 01/05/21 13:40 Plt Count 219 K/mm3 (142-424) 01/05/21 13:40 BUN 34 mg/dl (9-20) H 01/05/21 13:40 Creatinine 2.20 mg/dl (0.66-1.25) H 01/05/21 13:40 Estimated Creat Clear 46 mL/min (50-200) 01/05/21 13:40 Was VTE Risk Assessment Performed: Yes VTE Score: 5 VTE Risk Level: Low Risk - Prophylaxis VTE Prophylaxis Ordered?: Yes Types of VTE Prophylaxis: TEDS Knee High, Pharmacological Location of Applied Device: Bilateral Lower Extremeties Pharmacologic Type: Other (XARELTO)
[2021-01-06 07:57] LABS: Eosinophils % 0.2 % (0.1-12.0); Hematocrit 38.9 % (42.0-52.0); Hemoglobin 12.2 g/dL (14.1-18.0); Lymphocytes # 0.9 K/mm3 (0.7-4.5); Lymphocytes % 6.2 % (10-50); Mean Corpuscular HGB Conc 31.3 g/dL (31.8-35.4); Mean Corpuscular Hemoglobin 30.4 pg (27.0-31.2); Mean Corpuscular Volume 97.2 fl (80-94); Mean Platelet Volume 8.8 fl (7.4-10.4); Monocytes # 0.7 K/mm3 (0.1-1.0); Monocytes % 4.6 % (1.7-9.3); Neutrophils # 13.1 K/mm3 (1.8-7.8); Platelet Count 229 K/mm3 (142-424); Red Blood Count 4.01 M/mm3 (4.60-6.20); Red Cell Distribution Width 17.7 % (11.5-17.5); White Blood Count 14.7 K/mm3 (4.8-10.8)
[2021-01-06 08:00] VITALS: BP 100/66; PULSE 70; RESP 17; TEMP 36.7; O2SAT 94
[2021-01-06 08:01] LABS: Alanine Aminotransferase 36 U/L (12-78); Albumin Level 2.8 g/dl (3.5-5.0); Albumin/Globulin Ratio 0.9 (1.1-1.8); Alkaline Phosphatase 96 U/L (38-126); Anion Gap 11.3 mEq/L (5-15); Aspartate Amino Transferase 40 U/L (17-59); Bilirubin,Total 0.2 mg/dl (0.2-1.3); Blood Urea Nitrogen 27 mg/dl (9-20); Calcium 9.2 mg/dl (8.4-10.2); Carbon Dioxide 23 mmol/L (22.0-30.0); Chloride 109 mmol/L (98-107); Creatinine Clearance Estimated 64 mL/min (50-200); Estimated Glomerular Filt Rate 43 ml/min (>60); GFR (African American) 52 ML/MIN (>60); Globulin 3.2 g/dL (1.3-3.2); Glucose 114 mg/dl (74-100); Potassium 3.3 mmoL/L (3.5-5.1); Sodium 140 mmol/L (136-145)
[2021-01-06 08:06] LABS: MANUAL DIFFERENTIAL MANUAL DIFFERENTIAL (MANUAL DIFF)
[2021-01-06 08:31] LABS: Anisocytosis 1+; Hypochromasia 2+; Lymphocytes % 3 % (10-50); Macrocytosis 2+; Monocytes % 3 % (2-9); Neutrophils % 94 % (42-76); Platelet Estimate Normal; Total Cells Counted 100
--- NOTE | 2021-01-06 08:56 | HMH.PTEV ---
Physical Therapy Evaluation Rehab PT IP Evaluation Start: 01/06/21 08:30 Freq: ONCE Status: Active Protocol: Document 01/06/21 08:48 PHORNE (Rec: 01/06/21 08:56 PHORNE [id number]) Subjective/History History History Pt is 71 year old male admitted to [facility] for dehydration and weakness secondary to c. diff. Pt reports living in one level home with no steps with his . He reports use of a rolling walker with no difficulty prior to admittance at [facility]. Eval completed by HUSSAIN Sharp. Subjective Subjective Pt reports feeling okay this morning. Pt stated he did not feel well enough to get out of bed but agreed to do exercises on EOB with PT. Rehab PT IP Eval Objective Appearance Patient Behavior Appropriate,Cooperative Patient Orientation Place,Name,Birthday,Year Difficulty following instructions none Speech Pattern Clear,Appropriate,Coherent Ambulation Patient Able to Ambulate No Balance Ability to Arise Able, uses arms to help Sitting Balance Leans or slides in chair Standing Balance Steady, wide stance Dynamic Sitting Balance Ability Good Dynamic Standing Balance Ability Good Transfers Bed Transfer Ability Contact Guard/Hand Hold Sit to Stand Bed Transfer Ability Contact Guard/Hand Hold ROM All Extremities PT ROM Status WFL MMT All Extremities PT MMT WFL Rehab PT IP prob,goals,plan Problems Date of Evaluation: 01/06/21 PT IP Problems Gait,Balance,Safety Rehab Potential Rehab Potential Fair Equipment Needs Assistive Devices Rolling / Wheeled Walker Plan PT Intervention Plan Gait,Balance,Safety, Therapeutic Exercise PT Plan Frequency BID Duration LOS Discharge Goals Bed Transfer Ability Contact Guard/Hand Hold Sit to Stand Chair Transfer Ability Contact Guard/Hand Hold Ambulation Assistive Device Rolling Walker Ambulation Distance (feet) 5 Discharge Plan PT Discharge Plan Pt would be safe to d/c home when medically stable. Pt is ambulating in his room at baseline. Recommend continued home health PT s
--- NOTE | 2021-01-06 10:38 | HMH.PHAINT ---
MEDICATION RECONCILIATION COMPLETE PER PATIENT AND PHARMACY RECORDS
[2021-01-06 16:00] VITALS: BP 135/68; PULSE 74; RESP 16; TEMP 36.8; O2SAT 98
[2021-01-06 19:51] VITALS: BP 136/70; PULSE 74; RESP 16; TEMP 36.6; O2SAT 98
[2021-01-06 20:00] VITALS: O2SAT 98
[2021-01-07 04:00] VITALS: BP 122/79; PULSE 62; RESP 18; TEMP 36.6; O2SAT 95
[2021-01-07 06:00] VITALS: BMI 34.0
[2021-01-07 07:37] LABS: Basophils % 0.2 % (0.1-2.0); Eosinophils # 0.1 K/mm3 (0.0-0.4); Eosinophils % 0.7 % (0.1-12.0); Hematocrit 35.8 % (42.0-52.0); Hemoglobin 11.2 g/dL (14.1-18.0); Lymphocytes # 1.1 K/mm3 (0.7-4.5); Lymphocytes % 9.4 % (10-50); Mean Corpuscular HGB Conc 31.3 g/dL (31.8-35.4); Mean Corpuscular Hemoglobin 30.3 pg (27.0-31.2); Mean Corpuscular Volume 96.7 fl (80-94); Mean Platelet Volume 8.1 fl (7.4-10.4); Monocytes # 0.7 K/mm3 (0.1-1.0); Neutrophils # 10.2 K/mm3 (1.8-7.8); Neutrophils % 83.8 % (37.0-80.0); Platelet Count 227 K/mm3 (142-424); Red Cell Distribution Width 17.3 % (11.5-17.5); White Blood Count 12.1 K/mm3 (4.8-10.8)
[2021-01-07 07:40] LABS: Anion Gap 9.1 mEq/L (5-15); Blood Urea Nitrogen 19 mg/dl (9-20); Calcium 8.8 mg/dl (8.4-10.2); Carbon Dioxide 23 mmol/L (22.0-30.0); Chloride 112 mmol/L (98-107); Creatinine Clearance Estimated 93 mL/min (50-200); Estimated Glomerular Filt Rate 66 ml/min (>60); GFR (African American) 80 ML/MIN (>60); Glucose 111 mg/dl (74-100); Potassium 3.1 mmoL/L (3.5-5.1); Sodium 141 mmol/L (136-145)
[2021-01-07 08:00] VITALS: BP 120/76; PULSE 75; RESP 16; TEMP 36.4; O2SAT 97
--- NOTE | 2021-01-07 08:41 | HMH.ACPN2 ---
Internal Medicine - PN: Subj *Date: 01/07/21 *Time: 08:41 Interval history: Patient states that he feels somewhat better. Continues to have diarrhea that he describes as watery but denies mucus, purulent material or blood. Exam Vital signs and Labs for Last 24 Hours: Temp Pulse Resp BP Pulse Ox 97.8 F 62 18 122/79 95 01/07/21 04:00 01/07/21 04:00 01/07/21 04:00 01/07/21 04:00 01/07/21 04:00 Laboratory Results - last 24 hr 01/07/21 06:13: WBC 12.1 H, RBC 3.70 L, Hgb 11.2 L, Hct 35.8 L, MCV 96.7 H, MCH 30.3, MCHC 31.3 L, RDW 17.3, Plt Count 227, MPV 8.1, Neut % (Auto) 83.8 H, Lymph % (Auto) 9.4 L, [place] % (Auto) 6.0, Eos % (Auto) 0.7, Baso % (Auto) 0.2, Neut # (Auto) 10.2 H, Lymph # (Auto) 1.1, [place] # (Auto) 0.7, Eos # (Auto) 0.1, Baso # (Auto) 0.0 01/07/21 06:13: Sodium 141, Potassium 3.1 L, Chloride 112 H, Carbon Dioxide 23, Anion Gap 9.1, BUN 19 D, Creatinine 1.10 D, Estimated Creat Clear 93, Estimated GFR 66, Est GFR ( Amer) 80 D, Glucose 111 H, Calcium 8.8 I & O for Last 24 hours: Intake & Output 01/04/21 01/05/21 01/06/21 01/07/21 11:59 11:59 11:59 11:59 Intake Total 1240 / 1240 800 / 800 Output Total 150 / 150 Balance 1240 / 1240 650 / 650 Weight 238 lb 9.6 oz 238 lb 1.6 oz Narrative: Patient is alert, pleasant. No edema noted in ankles. Lungs have good air movement. Heart rate regular. Previously noted holosystolic murmur. Abdomen is soft, minimal tenderness. Assessment and Plan (1) Acute kidney injury Status: Acute Category: Medical Code(s): N17.9 - Acute kidney failure, unspecified (2) C. difficile colitis Status: Acute Category: Medical Code(s): A04.72 - Enterocolitis due to Clostridium difficile, not specified as recurrent (3) Dehydration Status: Acute Category: Medical Code(s): E86.0 - Dehydration (4) CAD (coronary artery disease) Status: Chronic Qualifiers: Category: Medical Code(s): I25.10 - Atherosclerotic heart disease of [place] coronary artery without angina pectoris (5) Chronic atrial fibrillation Status: Chronic Category: Medical Code(s): I48.20 - Chronic atrial fibrillation, unspecified (6) Diastolic dysfunction Status: Chronic Category: Medical Code(s): I51.89 - Other ill-defined heart diseases (7) HTN (hypertension) Status: Chronic Qualifiers: Hypertension type: primary hypertension Qualified Code(s): I10 - Essential (primary) hypertension Category: Medical Code(s): I10 - Essential (primary) hypertension (8) Obesity (BMI 30-39.9) Problem details: complicates all aspects of his care. Status: Chronic Category: Medical Code(s): E66.9 - Obesity, unspecified - Assessment and plan all Dx Assessment and Plan for all problems:: Cardiovascular status is stable. C. difficile colitis is improving with the readdition of oral Vanco. Difficult management decision given his failure of 4 weeks of vancomycin taper as an outpatient. Patient is not a candidate for fecal transplantation given his cardiac arrest during prior colonoscopy and his overall frail medical condition. I will reach out to infectious disease for advice this afternoon. His wishes him to be considered for long-term care admission for rehab, however he does not qualify for skilled care, this will probably be an issue with them if she wishes to pursue private pay options. Patient notes that he is agreeable to this this is something that can be done.
--- NOTE | 2021-01-07 13:28 | HMH.OTEV ---
OT Inpatient Evaluation Rehab OT IP Evaluation Start: 01/07/21 11:29 Freq: ONCE Status: Complete Protocol: Document 01/07/21 13:22 [facility] (Rec: 01/07/21 13:27 [facility] [id number]) Rehab OT IP Assessment Subjective History Pt oriented x 3 on arrival. Pt agreeable to engage in therapy evaluation. Pt was admitted via ED on 01/05/21 due to dehydration, C-diff, and diarrhea. Pt has a past medical history of Arrhythmia, Asthma, Atrial Fibrillation, Congestive Heart Failure, Chronic Obstructive Pulmonary Disease (COPD), Congenital Heart Disease, Diabetes Mellitus Type 2, Hyperlipidemia, Hypertension, Palpitations, Transient Ischemic Attacks (TIA). Pt lives with his . Pt claims he is independent with all ADLs. However, he is dependent upon for completion of IADLS. Pt does use a walker during ambulation . Subjective I just got weak. Objective Patient Orientation Person,Place,Birthday Upper Extremity Gross ROM WFL Transfer Training Sit/Stand Transfer Assist Level Contact Guard/Hand Hold Chair Transfer Ability Contact Guard/Hand Hold Chair Transfer Technique Sit to/from Ambulatory Chair Transfer Assistive Devices Rolling Walker Rehab OT IP prob,goals,plan Problems Date of Evaluation: 01/07/21 OT IP Problems Bed Mobility,Transfers,Gait, Balance,Self care,Safety Rehab Potential Rehab Potential Good Equipment Needs Assistive Devices Rolling / Wheeled Walker Plan OT intervention Plan Bed Mobility,Transfers,Gait, Balance,Self care,Safety, Therapeutic Exercise OT Plan Frequency BID Duration LOS Discharge Goals Bed Mobility Ability Standby Assistance Sit to Stand Chair Transfer Ability Supervision/Stand by Chair Transfer Ability Supervision/Stand by Chair Transfer Technique Sit to/from Ambulatory Chair Transfer Assistive Devices Rolling Walker Lower Body Dressing Ability Standby Assistance Upper Body Dressing Ability Standby Ass
--- NOTE | 2021-01-07 13:34 | CA_ITS ---
APPROVED REPORT EXAM: Comprehensive 2D, Doppler, and color-flow Echocardiogram [employer] Maintenance Mechanic: Kaley Irene CRT Ht: 5 ft 10 in Wt: 238lbs BSA: 2.25 BP: 110/64 mmHg Indications: afib, colitis, chf, tis, stent, copd, palp, htn, hyperlipidemia, sob, 2D Dimensions LVOT 2.04 cm (M/F) 1.5-2.5 LA Volume 39.10 mL LA Volume Index 17.40 mL/m2 (M/F) 16-34 M-Mode Dimensions RVDd 3.80 cm (0.9-2.6) LA Diam 4.11 cm (1.9-4.0) LVDd 5.01 cm (3.5-5.7) Ao Diam 3.88 cm (2.0-3.7) LVDs 3.26 cm (3.5-5.7) IVSd 0.89 cm (0.6-1.1) PWd 1.16 cm (0.6-1.1) EF (Teich) 64.00% FS 34.90% EDV (Teich) 118.80 mL TAPSE 2.07 (<1.7) ESV (Teich) 42.80 mL LV Diastology E Decel Time 290.00 (160-240 msec) E/A Ratio 1.11 MED E' 5.80 (< 7 cm/sec) MED A' 11.00 cm/s E'/MED E' Ratio 15.26 (>14) LAT E' 10.40 (<10 cm/sec) LAT A' 10.20 cm/s E/LAT E' Ratio 8.51 (>14) Aortic Valve LVOT Max 131.00 (70-110 cm/s) LVOT VTI 26.26 cm AoV Peak Tonny. 244.00 (50-130 cm/s) AO Peak GR. 23.80 mmHg AO Mean GR. 11.70 (<5 mmHg) AO VTI 45.94 (18-25 cm) BROOKE (VTI) 1.87 (2.5-4.5 cm2) Mitral Valve MV A Velocity 80.00 (40-130 cm/s) E/A Ratio 1.11 MV Decel. Time 290.00 (160-240 ms) Tricuspid Valve TR P. Velocity 205.00 cm/s RAP Estimate 10.00 mmHg RVSP 26.80 mmHg Left Ventricle Left atrium is mildly enlarged, left ventricle is normal size, mild concentric left ventricular hypertrophy, visually estimated ejection fraction 50% with no obvious regional wall motion abnormality, grade 1 diastolic dysfunction seen without tissue Doppler evidence of raise left atrial pressure. Right Ventricle Right atrium and right ventricle are mildly enlarged with normal contractility. Aortic Valve Aortic valve is thickened and calcified with mean gradient across valve is 12 mmHg, valve area 1.9 cm??? represents mild aortic stenosis, there is no significant aortic insufficiency seen. Mitral Valve Mitral valve is minimally thickened, there is mild mitral regurgitation. Tricuspid Valve Tricuspid valve grossly normal, there is mild tricuspid regurgitation, tricuspid regurgitation jet velocity is inadequate for calculation of the right ventricular systolic pressure. Pulmonic Valve Pulmonic valve is poorly visualized. Great Vessels Aortic root is normal size. Inferior vena cava is mildly enlarged with normal inspiratory collapse. Pericardium No significant pericardial effusion noted. Conclusion 1. Mild biatrial enlargement, normal left ventricular size, mild concentric left ventricular hypertrophy, visually estimated ejection fraction 50% with no regional wall motion abnormality, grade 1 diastolic dysfunction seen without tissue Doppler evidence of raise left atrial pressure. 2. Thickened and calcified aortic valve with mild aortic stenosis, valve area is 1.9 cm???. There is no significant aortic insufficiency 3. Mild mitral and tricuspid regurgitation 4. No significant pericardial effusion noted. 5. Inferior vena cava is mildly dilated with normal inspiratory collapse. Electronically signed by : Darinel Asencio MD 01/08/2021 15:18:26
[2021-01-07 13:43] VITALS: BMI 34.0
[2021-01-07 16:00] VITALS: BP 138/77; PULSE 65; RESP 16; TEMP 36.8; O2SAT 100
--- NOTE | 2021-01-07 18:54 | PC.NURSE ---
No acute changes this shift. VSS. Up to chair at this time. No complaints. States he has less diarrhea today.
[2021-01-07 20:00] VITALS: BP 126/73; PULSE 66; RESP 19; TEMP 36.7; O2SAT 97
[2021-01-08 04:00] VITALS: BP 124/64; PULSE 68; RESP 16; TEMP 36.6; O2SAT 96
[2021-01-08 05:01] VITALS: BMI 34.0
--- NOTE | 2021-01-08 06:56 | SW/DCPLANNER ---
Addendum entered by Linette Mayer 01/09/21 06:40: RECEIVED A CALL LAST EVENING AFTER I HAD LEFT WORK THAT [employer] HAS APPROVED A STAY AT [facility].. IF HE REMAINS STABLE HE CAN DISCHARGE THERE TODAY... WILL NOTIFY AND LET HER KNOW. Addendum entered by Linette Mayer 01/08/21 10:01: DID A FOLLOW UP THIS MORNING WITH [facility] TO SEE IF THEY ARE GOING TO BE ABLE TO TAKE ACCEPT THIS PATIENT FOR PLACEMENT.. KB STATED [facility] HAS HAD SEVERAL APPEALS AND THEY ARE TRYING TO SEE IF HE CAN USE HIS [employer]/MCR AND IF NOT IF THEY TAKE HIM UNDER MEDICAID PENDING..HOPEFUL TO HEAR SOMETHING TODAY SINCE PATIENT IS MEDICALLY READY FOR A DISCHARGE... Original Note: WENT WITH DR FOSTER ON ROUNDS WITH THIS PATIENT YESTERDAY AND DR FOSTER EXPLAINED TO [facility] THAT HIS CAN NOT CARE FOR HIM AND HE ACKNOWLEDGED THAT IN CONVERSATION.. HE SAID HE NEEDED TO GO SOMEWHERE TO GET STRONGER AND BETTER AND TOLD [facility] THEY WERE NOT ACCEPTING PATIENTS AT [facility]. DR FOSTER ASKED ABOUT [facility] AND HE AGREED FOR ME TO SEND HIS INFORMATION THERE IN HOPES THEY WOULD HAVE A BED..I DID FAX PATIENT INFORMATION AND WAITING ON A CALL TO WHETHER THEY WILL ACCEPT HIM OR NOT...I DID CALL HIS AND SHE IS IN AGREEMENT OF THE PLAN TO GO TO [facility] IF THERE IS A BED FOR HIM.. I EXPLAINED TO HER THAT HIS [employer]/MCR MAY NOT PRECERT HIM BECAUSE ACCORDING TO THERAPY HE IS AT [place]ELINE, SHE SAID WHEN HE WAS AT [facility] THEY WERE GOING TO MAKE APPLICATION FOR MEDICAID BUT HE ENDED UP RETURNING BACK HOME. [facility] STATED IT HAS BEEN DIFFICULT FOR SOMETIME FOR HER TO CARE FOR HIM BUT HE DIDN'T WANT TO GO ANYWHERE, SHE SAID SHE THINKS COMING TO THE HOSPITAL HAS MADE HIM MORE AWARE OF HOW MUCH CARE HE NEEDS.. WAITING TO HEAR BACK FROM [facility] IF ACCEPTED HE MAY BE ABLE TO GO TODAY...PATIENT HAS HAD HIS COVID VACCINATION..
[2021-01-08 08:00] VITALS: BP 111/61; PULSE 73; RESP 16; TEMP 36.7; O2SAT 96
--- NOTE | 2021-01-08 08:22 | HMH.ACPN2 ---
Internal Medicine - PN: Subj *Date: 01/08/21 *Time: 08:22 Interval history: Overall patient feels much better, his diarrhea has slowed down, has become somewhat less watery. No fevers. No nausea, no vomiting, no breathlessness. Exam Vital signs and Labs for Last 24 Hours: Temp Pulse Resp BP Pulse Ox 97.9 F 68 16 124/64 96 01/08/21 04:00 01/08/21 04:00 01/08/21 04:00 01/08/21 04:00 01/08/21 04:00 I & O for Last 24 hours: Intake & Output 01/05/21 01/06/21 01/07/21 01/08/21 11:59 11:59 11:59 11:59 Intake Total 1240 / 1240 1040 / 1040 720 / 720 Output Total 150 / 150 Balance 1240 / 1240 890 / 890 720 / 720 Weight 238 lb 9.6 oz 238 lb 1.6 oz 237 lb 6 oz Narrative: Patient is pleasant, talkative, oriented x3. Comfortable on room air. Lungs have good air movement. Heart rate irregular but rate controlled. Abdomen soft. No edema. Patient is globally weak but has no focal deficits. Assessment and Plan (1) Acute kidney injury Status: Acute Category: Medical Code(s): N17.9 - Acute kidney failure, unspecified (2) C. difficile colitis Status: Acute Category: Medical Code(s): A04.72 - Enterocolitis due to Clostridium difficile, not specified as recurrent (3) Dehydration Status: Acute Category: Medical Code(s): E86.0 - Dehydration (4) CAD (coronary artery disease) Status: Chronic Qualifiers: Category: Medical Code(s): I25.10 - Atherosclerotic heart disease of [place] coronary artery without angina pectoris (5) Chronic atrial fibrillation Status: Chronic Category: Medical Code(s): I48.20 - Chronic atrial fibrillation, unspecified (6) Diastolic dysfunction Status: Chronic Category: Medical Code(s): I51.89 - Other ill-defined heart diseases (7) HTN (hypertension) Status: Chronic Qualifiers: Hypertension type: primary hypertension Qualified Code(s): I10 - Essential (primary) hypertension Category: Medical Code(s): I10 - Essential (primary) hypertension (8) Obesity (BMI 30-39.9) Problem details: complicates all aspects of his care. Status: Chronic Category: Medical Code(s): E66.9 - Obesity, unspecified - Assessment and plan all Dx Assessment and Plan for all problems:: 1. Recurrent C. difficile. Improving. I have placed a call in for phone consultation with [place] [facility]. I hope to have some input from them about possible options. Patient is not very interested in [facility] and this would certainly be hard on him and his family. 2. CHF. Repeat ejection fraction yesterday is 55%. Certainly encouraging. Clinically looks like he is improved with his good volume status. 3. Patient would benefit from ongoing PT and stability issues given his falls and syncope at home. Currently pending for long-term care placement.
--- NOTE | 2021-01-08 10:48 | PC.NURSE ---
Spoke with Dr. Vegas this am upon rounds and he stated stool, we didn't have to get another stool sample on pt. Noted and lab aware
[2021-01-08 16:00] VITALS: BP 125/74; PULSE 65; RESP 16; TEMP 36.8; O2SAT 96
[2021-01-08 20:00] VITALS: BP 130/81; PULSE 76; RESP 18; TEMP 36.8; O2SAT 96
--- NOTE | 2021-01-08 20:19 | PC.NURSE ---
No acute changes this shift. VSS. B in reach.
--- NOTE | 2021-01-09 03:15 | PC.NURSE ---
No acute changes this shift. Pt is A/O x4. Pt denies any pain, N/V this shift. Pt will ambulate to bathroom with stand by assist. called and wants a stool sample if possible, order was place on 01/06 and still not obtained, made patient aware that we still need a stool sample, placed specimen cup and hat in bathroom for sample. VSS, call light within reach, will continue to monitor.
[2021-01-09 03:42] VITALS: BP 132/78; PULSE 64; RESP 17; TEMP 36.6; O2SAT 94
--- NOTE | 2021-01-09 04:21 | PC.NURSE ---
stool specimen obtained and sent to lab
[2021-01-09 04:56] VITALS: BMI 34.0
[2021-01-09 06:29] LABS: Basophils % 0.2 % (0.1-2.0); Eosinophils # 0.1 K/mm3 (0.0-0.4); Eosinophils % 1.3 % (0.1-12.0); Hematocrit 35.3 % (42.0-52.0); Hemoglobin 11.3 g/dL (14.1-18.0); Lymphocytes # 1.2 K/mm3 (0.7-4.5); Lymphocytes % 16.5 % (10-50); Mean Corpuscular Hemoglobin 30.7 pg (27.0-31.2); Mean Corpuscular Volume 95.9 fl (80-94); Mean Platelet Volume 8.7 fl (7.4-10.4); Monocytes # 0.5 K/mm3 (0.1-1.0); Monocytes % 7.2 % (1.7-9.3); Neutrophils # 5.4 K/mm3 (1.8-7.8); Neutrophils % 74.8 % (37.0-80.0); Platelet Count 242 K/mm3 (142-424); Red Blood Count 3.68 M/mm3 (4.60-6.20); White Blood Count 7.2 K/mm3 (4.8-10.8)
[2021-01-09 06:40] LABS: Chloride 108 mmol/L (98-107); Sodium 141 mmol/L (136-145)
[2021-01-09 06:42] LABS: Alanine Aminotransferase 33 U/L (12-78); Aspartate Amino Transferase 48 U/L (17-59); Blood Urea Nitrogen 7 mg/dl (9-20); Creatinine Clearance Estimated 102 mL/min (50-200); Estimated Glomerular Filt Rate 95 ml/min (>60); GFR (African American) 115 ML/MIN (>60)
[2021-01-09 06:43] LABS: Albumin Level 2.4 g/dl (3.5-5.0); Albumin/Globulin Ratio 0.9 (1.1-1.8); Alkaline Phosphatase 72 U/L (38-126); Anion Gap 6.9 mEq/L (5-15); Calcium 8.3 mg/dl (8.4-10.2); Carbon Dioxide 29 mmol/L (22.0-30.0); Globulin 2.8 g/dL (1.3-3.2); Glucose 110 mg/dl (74-100); Magnesium 1.1 mg/dl (1.6-2.3); Total Protein,Serum 5.2 g/dl (6.3-8.2)
--- NOTE | 2021-01-09 07:34 | HMH.DCSUM ---
General - General Admission date:: 01/05/21 Discharge date: 01/09/21 HPI HPI: Is a 71-year-old male presented to the emergency department with some generalized weakness and diarrhea. The patient states that he has been battling with bouts of diarrhea for the last few months. He was diagnosed with C. difficile. Patient has been on oral vancomycin since then. Patient dates like his symptoms got better for few days, however the last week he has been having worsening diarrhea. States that is clear in nature. Is not have any associated abdominal pain. Patient states that over the last 3 to 4 days he has just had some weakness. Has had difficulty getting out of bed because he is so weak and rundown. He denies any headache or change in vision. No focal weakness. No chest pain or shortness of breath. Denies any fevers or chills. Above note per ER, notes that patient was in the bathroom and she did not hear him for a while and she went in to find him draped over a chair, he is was conscious but states that he could not get up because his legs were so weak. Brought to the emergency department, work-up revealed leukocytosis, worsening appearing colitis on CT scan and ongoing diarrhea. I asked the ER to start IV Flagyl, resume p.o. vancomycin and admit to hospital for further evaluation. Hospital Course Hospital Course: 1. Recurrent C. difficile. Improving. I have placed a call in for phone consultation with [place] [facility]. I hope to have some input from them about possible options. Patient is not very interested in traveling to tertiary care center for fecal transplantation and this would certainly be hard on him and his family. 2. CHF. Repeat ejection fraction yesterday is 55%. Certainly encouraging. Clinically looks like he is improved with his good volume status. 3. Patient would benefit from ongoing PT and stability issues given his falls and syncope at home. Currently pending for long-term care placement. Mr. Phillips is a 71-year-old male with recurrent C. difficile colitis. Presents with similar presentation as previous episodes. Started on metronidazole and oral vancomycin. Has responded well. Problems addressed during admission as follows. Additionally noted to have HALLIE and abdominal pain on admission (resolved): Colitis Recurrent C. difficile -Stool sample pending, presumed positive C. difficile given recent history however need to verify with labs -Treated with IV metronidazole and oral vancomycin during admission. Gradual decrease in stool burden. Improvement in consistency of stools. Discussed case with infectious disease consultation in [place]. At this time we will continue vancomycin 4 times a day indefinitely with plan for follow-up with infectious disease to discuss tapering gradually over several months and potential benefit of stool transplant. HALLIE -Improved after fluid resuscitation. Likely secondary to dehydration from diarrhea. -Monitored daily, caution with nephrotoxins. Diabetic diet during hospitalization. Meds per med rec at [facility]. Discharge to skilled care for medication management and rehab. Objective Vital signs: Temp Pulse Resp BP Pulse Ox 97.9 F 64 17 132/78 94 L 01/09/21 03:42 01/09/21 03:42 01/09/21 03:42 01/09/21 03:42 01/09/21 03:42 Narrative: - Constitutional no acute distress, obese - *Routine HEENT Exam Head: Present: normocephalic Eye: Present: EOMI, PERRL ENT: Present: mucous membranes dry - *Routine Neck Exam Present: supple. Absent: lymphadenopathy - *Routine Respiratory Exam Present: CTA bilaterally - *Routine Cardiovascular Exam Present: murmur, irregular rhythm - *Routine Abdominal Exam Present: soft, normoactive bowel sounds, minimal tenderness - *Routine Extremities Exam Present: 1+ edema improved from baseline. Absent: cyanosis, clubbing - *Routine Skin Exam Present: warm. Absent: rash - *Rou
[2021-01-09 07:40] LABS: Bilirubin,Total < 0.1 mg/dl (0.2-1.3); Potassium 2.9 mmoL/L (3.5-5.1)
[2021-01-09 08:00] VITALS: BP 130/81; PULSE 70; RESP 16; TEMP 36.7; O2SAT 97
[2021-01-09 11:05] LABS: Coronavirus 19, PCR Not Detected (NotDetected); Influenza A, PCR Not Detected (NotDetected); Influenza B, PCR Not Detected (NotDetected)
== END 2021-01-09 15:15 ==
LOC: ER 16:03 → 2ND 20:34
PROVIDERS: Internal Medicine Adolescent Medicine; Admitting Provider Internal Medicine Adolescent Medicine; Emergency Provider Emergency Medicine; PCP Internal Medicine Adolescent Medicine; Visit Provider Internal Medicine Adolescent Medicine
DX: E86.0 Dehydration (principal); A04.72 Enterocolitis due to Clostridium difficile, not specified as recurrent; N17.9 Acute kidney failure, unspecified; I48.20 Chronic atrial fibrillation, unspecified; I10 Essential (primary) hypertension; Z20.822 Contact with and (suspected) exposure to COVID-19
CPT/HCPCS: G0378; 36415; 71045; 74176; 80048; 80053; 83690; 83735; 84443; 84484; 85007; 85025; 93306; 96365; 96375; 97110; 97116; 97162; 97166; 97530; 99284; C9803; J3370; U0003; U0005

== ENCOUNTER 2021-02-10 15:53 | Observation (INO) | payer MEDICARE, SELFPAY ==
[2021-02-10 15:56] VITALS: BMI 34.4
[2021-02-10 16:00] VITALS: BP 129/78; PULSE 72; RESP 20; TEMP 36.9; O2SAT 98
--- NOTE | 2021-02-10 16:10 | PC.NURSE ---
pt arrived to the floor at this time.
--- NOTE | 2021-02-10 16:19 | CT_ITS ---
PROCEDURE INFORMATION: Exam: CT Lumbar Spine Without Contrast Exam date and time: 02/10/2021 4:19 PM Age: 71 years old Clinical indication: Low back pain; Prior surgery; Additional info: Le pain and weakness after fall TECHNIQUE: Imaging protocol: Computed tomography images of the lumbar spine without contrast. Radiation optimization: All CT scans at this facility use at least one of these dose optimization techniques: automated exposure control; mA and/or kV adjustment per patient size (includes targeted exams where dose is matched to clinical indication); or iterative reconstruction. COMPARISON: SPLUMBWO MR lumbar spine wo con 12/26/2017 12:53 PM FINDINGS: Vertebrae: There is no acute compression fracture in the lumbar spine. There is diffuse degeneration with endplate osteophytes disc space narrowing and vacuum discs throughout. There has been prior hardware fusion at the L4-L5 level with posterior decompression of the spinal canal. Near normal alignment in the sagittal plane. L1-L2: There is marked sclerosis of the vertebral body endplates as well as erosions and subchondral cysts most likely due to degeneration although prior infection can also have this appearance. There is probable moderate spinal canal stenosis due to the endplate osteophytes and moderate right neural foraminal narrowing. The lateral recesses are narrowed which may affect the exiting L2 nerve roots. L2-L3: Diffusely bulging annulus with resultant moderate to severe spinal canal stenosis with likely compression of both exiting L3 nerve roots. There is bony stenosis of the right neural foramen which may affect the right L2 nerve root. L3-L4: There is severe bony stenosis of the spinal canal. Series 3, image 61. There is compression of the thecal sac and both exiting L4 nerve roots. The neural foramen appear patent. L4-L5: No significant spinal canal stenosis. The right lamina has been resected. No significant narrowing of the neural foramen. L5-S1: No spinal canal stenosis. Soft tissue density material fills the right neural foramen which may affect the right L5 nerve root. The left neural foramen is patent. Sacrum/coccyx: There is anterior fusion of the left sacroiliac joint in bilateral degeneration of the sacroiliac joints. Soft tissues: Postoperative change. IMPRESSION: No acute compression fracture in the lumbar spine. Multilevel spinal canal stenosis and neural foraminal narrowing as described above which could result in multilevel radiculopathies.
[2021-02-10 17:06] LABS: Coronavirus 19, PCR Not Detected (NotDetected); Influenza A, PCR Not Detected (NotDetected); Influenza B, PCR Not Detected (NotDetected)
[2021-02-10 18:09] LABS: Alanine Aminotransferase 26 U/L (12-78); Anion Gap 9.8 mEq/L (5-15); Aspartate Amino Transferase 41 U/L (17-59); Blood Urea Nitrogen 18 mg/dl (9-20); Calcium 9.7 mg/dl (8.4-10.2); Carbon Dioxide 31 mmol/L (22.0-30.0); Chloride 100 mmol/L (98-107); Creatinine Clearance Estimated 79 mL/min (50-200); Estimated Glomerular Filt Rate 54 ml/min (>60); GFR (African American) 66 ML/MIN (>60); Glucose 108 mg/dl (74-100); Magnesium 1.8 mg/dl (1.6-2.3); Potassium 4.8 mmoL/L (3.5-5.1); Sodium 136 mmol/L (136-145)
[2021-02-10 18:10] LABS: Albumin Level 3.7 g/dl (3.5-5.0); Albumin/Globulin Ratio 0.9 (1.1-1.8); Alkaline Phosphatase 77 U/L (38-126); Total Protein,Serum 7.7 g/dl (6.3-8.2)
[2021-02-10 18:14] LABS: Basophils % 0.1 % (0.1-2.0); Eosinophils % 0.2 % (0.1-12.0); Hematocrit 41.8 % (42.0-52.0); Hemoglobin 13.2 g/dL (14.1-18.0); Lymphocytes # 0.8 K/mm3 (0.7-4.5); Lymphocytes % 6.6 % (10-50); Mean Corpuscular HGB Conc 31.5 g/dL (31.8-35.4); Mean Corpuscular Hemoglobin 31.5 pg (27.0-31.2); Mean Platelet Volume 8.7 fl (7.4-10.4); Monocytes # 0.6 K/mm3 (0.1-1.0); Monocytes % 4.5 % (1.7-9.3); Neutrophils # 11.2 K/mm3 (1.8-7.8); Neutrophils % 88.6 % (37.0-80.0); Platelet Count 146 K/mm3 (142-424); Red Blood Count 4.18 M/mm3 (4.60-6.20); Red Cell Distribution Width 17.4 % (11.5-17.5); White Blood Count 12.7 K/mm3 (4.8-10.8)
[2021-02-10 18:17] LABS: MANUAL DIFFERENTIAL MANUAL DIFFERENTIAL (MANUAL DIFF)
[2021-02-10 18:56] LABS: Microscopic, Urine URINE MICROSCOPIC (MICROSCOPIC)
[2021-02-10 19:19] LABS: Anisocytosis 2+; Corrected White Blood Count 11.7 K/mm3 (4.8-10.8); Lymphocytes % 7 % (10-50); Macrocytosis 1+; Monocytes % 4 % (2-9); Neutrophils % 89 % (42-76); Nucleated Red Blood Cells 9; Platelet Estimate Slight Decrease; Total Cells Counted 100
[2021-02-10 19:20] LABS: Hypochromasia 1+
[2021-02-10 19:51] LABS: Appearance,Urine CLEAR (Clear); Bilirubin,Urine Negative (Negative); Blood, Urine Negative (Negative); Color,Urine YELLOW (Yellow); Glucose,Urine (UA) Negative (Negative); Ketones,Urine Negative (Negative); Leukocyte Esterase,Urine Negative (Negative); Nitrate,Urine Negative (Negative); Protein,Urine Negative (Negative); Specific Gravity, Urine 1.025 (1.005-1.030); Urobilinogen,Urine 0.2 EU/dl (0.2)
[2021-02-10 20:00] VITALS: BP 126/89; PULSE 68; RESP 17; TEMP 36.6; O2SAT 100
[2021-02-10 20:53] LABS: Triiodothryronine (T3) Uptake 41 % (23.5-40.5)
[2021-02-10 20:54] LABS: Free Thyroxine Index 4.6 ug/dL (5.93-13.13); T4 (Thyroxine) 11.3 ug/dl (5.53-11.0)
[2021-02-10 21:45] LABS: POC Glucose,Bedside 95 (70-110)
[2021-02-11 04:00] VITALS: BP 144/76; PULSE 89; RESP 19; TEMP 36.5; O2SAT 97
[2021-02-11 04:42] VITALS: BMI 35.2
--- NOTE | 2021-02-11 04:56 | PC.NURSE ---
pt a&ox4. has rested majority of this shift. remains on RA. no c/o pain or discomfort voiced.
[2021-02-11 05:53] LABS: POC Glucose,Bedside 105 (70-110)
--- NOTE | 2021-02-11 06:47 | ECG_ITS ---
APPROVED REPORT Exam: Resting ECG HR:63 bpm ECG Measurements Heart Rate 63 AXES ND 328 P 80 QRSd 86 QRS -9 QT 434 T 75 QTc 444 Conclusion Sinus rhythm with 1st degree AV block Low voltage QRS Septal infarct, age undetermined Abnormal ECG Electronically signed by : Henrry Vegas MD 02/11/2021 21:35:54
--- NOTE | 2021-02-11 07:33 | HMH.PHAVTE ---
[facility] Pharmacy VTE Monitoring - Patient Demographics Admission date: 02/10/21 Report Date: 02/11/21 Time: 07:33 Allergies/Adverse Reactions: Patient Allergies Penicillins Allergy (Verified 12/04/20 14:14) Height: 1.78 m Weight: 111.584 kg - VTE Risk Labs: VTE Related Lab Results Hgb 13.2 g/dL (14.1-18.0) L 02/10/21 17:00 Hct 41.8 % (42.0-52.0) L 02/10/21 17:00 Plt Count 146 K/mm3 (142-424) 02/10/21 17:00 BUN 18 mg/dl (9-20) 02/10/21 17:00 Creatinine 1.30 mg/dl (0.66-1.25) H 02/10/21 17:00 Estimated Creat Clear 79 mL/min (50-200) 02/10/21 17:00 Was VTE Risk Assessment Performed: Yes VTE Score: 7 VTE Risk Level: Moderate Risk Clinical Trial Participant: No - Prophylaxis VTE Prophylaxis Ordered?: Yes Types of VTE Prophylaxis: TEDS Knee High
[2021-02-11 08:00] VITALS: BP 164/99; PULSE 71; RESP 18; TEMP 37; O2SAT 97
--- NOTE | 2021-02-11 08:26 | HMH.HPDC ---
General - General Admission date:: 02/10/21 Discharge date: 02/11/21 *Admission Date: 02/10/21 *Chief complaint: Weakness and ataxia *History of present illness: 71-year-old male with long history of multiple medical problems including CHF, lumbar spinal stenosis, chronic atrial fibrillation, recurrent C. difficile colitis with resulting weakness and recent skilled nursing stay, who was brought to my office by his yesterday because he was unable to ambulate. She was able to get him in the car and drive him into the indoor parking area of my office, but it took myself, my resident physician and to medical assistance to get him into a wheelchair. He was unable to ambulate or bear weight on his legs and neurologic exam revealed that he was significantly weak in his legs with somewhat of a shaking tremor in his upper arms. He was alert, oriented x3. Denied chest pain, increased swelling, worsening diarrhea. His wondered about aggressive physical therapy that it occurred the day before and whether that just wore him out. We admitted him to observation to check electrolytes, check his lumbar CT to make sure that we had no new spinal impingement and no significant electrolyte or metabolic abnormalities overnight. [facility] History I have reviewed the patient's past medical history: Yes Medical History: Reports:: Arrhythmia, Asthma, Atrial Fibrillation, Congestive Heart Failure, Chronic Obstructive Pulmonary Disease (COPD), Congenital Heart Disease, Diabetes Mellitus Type 2, Hyperlipidemia, Hypertension, Palpitations, Transient Ischemic Attacks (TIA) Denies:: Cancer, Diabetes Mellitus Type 1, Home Oxygen, Internal Pacemaker, MRSA, Seizures *Have you ever received a pneumonia vaccine?: Yes *Have you received a flu vaccine this season?: Yes Other Medical History: Reports: Anemia, Arthritis, Cataracts Laterality Cases: Bilateral: Other Other Surgeries: Yes: No Previous Surgery, Appendectomy, Cardiac Catheterization, Colonoscopy, Coronary Stent, Hernia Repair, Other (back surgery). No: Pacemaker Amputation: No Fractures: No - *Social History Smoking Status: Former smoker Tobacco Type: cigarettes # Packs/Day (cigarettes): 2 #Yrs smoked (if former smoker): 39 Alcohol Intake: never Alcohol Intake Frequency:: other Substance Use Type: denies use *Occupational Status:: retired Housing: house Household Members: spouse *Travel in the last 8 weeks: None Family Hx:: Hyperlipidemia, Hypertension Review of Systems - Review of Systems Review of systems:: pertinent systems reviewed and negative unless documented below Exam Vital signs and Labs for Last 24 Hours: Temp Pulse Resp BP Pulse Ox 97.7 F 89 19 144/76 H 97 02/11/21 04:00 02/11/21 04:00 02/11/21 04:00 02/11/21 04:00 02/11/21 04:00 Laboratory Results - last 24 hr 02/10/21 17:00: WBC 12.7 H, Corrected WBC 11.7 H, RBC 4.18 L, Hgb 13.2 L, Hct 41.8 L, MCV 100.0 H, MCH 31.5 H, MCHC 31.5 L, RDW 17.4, Plt Count 146, MPV 8.7, Neut % (Auto) 88.6 H, Lymph % (Auto) 6.6 L, [place] % (Auto) 4.5, Eos % (Auto) 0.2, Baso % (Auto) 0.1, Neut # (Auto) 11.2 H, Lymph # (Auto) 0.8, [place] # (Auto) 0.6, Eos # (Auto) 0.0, Baso # (Auto) 0.0, Total Counted 100, Neutrophils % (Manual) 89 H, Lymphocytes % (Manual) 7 L, Monocytes % (Manual) 4, Nucleated RBCs 9, Platelet Estimate Slight decrease, Hypochromasia 1+, Anisocytosis 2+, Macrocytosis 1+ 02/10/21 17:00: Sodium 136, Potassium 4.8, Chloride 100, Carbon Dioxide 31 H, Anion Gap 9.8, BUN 18, Creatinine 1.30 H, Estimated Creat Clear 79, Estimated GFR 54 L, Est GFR ( Amer) 66, Glucose 108 H, Calcium 9.7, Magnesium 1.8, Total Bilirubin 1.0, AST 41, ALT 26, Alkaline Phosphatase 77, Total Protein 7.7 D, Albumin 3.7, Globulin 4.0 H, Albumin/Globulin Ratio 0.9 L 02/10/21 17:00: SARS-CoV-2 (PCR) Not detected, Influenza A Untype (PCR) Not detected, Influenza Type B (PCR) Not detected 02/10/21 17:47: TSH 0.30 L, Free T4 Index 4.6 L, Thyroxine (T4) 11.3 H, T3 U
--- NOTE | 2021-02-11 08:59 | HMH.OTEV ---
OT Inpatient Evaluation Rehab OT IP Evaluation Start: 02/10/21 16:19 Freq: ONCE Status: Complete Protocol: Document 02/11/21 08:50 ALEXANDER (Rec: 02/11/21 08:59 ALEXANDER [id number]) Rehab OT IP Assessment Subjective History 71 year old male admitted to [facility] for observation due to weakness. Patient lives in 1 story home with ramp to enter with . Patient will be d/c today and returning home with after medically stable d /c. Analysis Patient's safety awareness during transfers, ambulation and ADLs tasks this morning. Patient was independent for all tasks. Subjective I can get up. Objective Patient Orientation Person,Name,Year Upper Extremity Gross ROM WFL Transfer Training Sit/Stand/Pivot Transfer Assist Level Independent Chair Transfer Ability Independent Chair Transfer Technique Sit to/from Ambulatory Chair Transfer Assistive Devices Rolling Walker Rehab OT IP prob,goals,plan Problems Date of Evaluation: 02/11/21 Rehab Potential Rehab Potential Innapropriate for Skilled Therapy Equipment Needs Assistive Devices Rolling / Wheeled Walker Discharge Plan OT Discharge Plan Patient is at baseline this date. Recommend OT/PT for HH services as needed. Patient planned to return home today per nursing. Eval Complexity Eval Charge Codes 91480 - Low Complexity G Codes G -code Required No PHYSICIAN CERTIFICATION: I certify the specified therapy services for Avi Phillips are required, authorized, and reviewed every 30 days.
--- NOTE | 2021-02-11 09:50 | SW/DCPLANNER ---
Addendum entered by Priscila Stafford 02/11/21 10:15: Isabel with [facility] [place] has called and stated that services will begin tomorrow for this patient. Original Note: I spoke with this patients regarding discharge plans. Patient is currently established with [facility]. Patient information/order will be faxed to [facility]. This patient will discharge home today.
--- NOTE | 2021-02-11 09:54 | HMH.PTEV ---
Physical Therapy Evaluation Rehab PT IP Evaluation Start: 02/10/21 16:19 Freq: ONCE Status: Complete Protocol: Document 02/11/21 09:04 SHIRLEY (Rec: 02/11/21 09:54 SHIRLEY [id number]) Subjective/History History History This is the initial evaluation for Avi Phillips. Pt is a 71 y/o male referred to [facility] for weakness and falls. Pt is here on observation. Pt has long medical history including CHF, lumbar spinal stenosis, chronic atrial fibrillation, recurrent C. difficile colitis with resulting weakness and recent detention stay. - note done by Wilma Lee , SPT Subjective Subjective Pt states he was living at home with his before this medical episode. Pt states he was using a cane to get around but he started to fall due to weakenss. Pt reports he then started using his walker which provided great help to his weakness and falls. Pt states the weakness in his legs began a year ago and has recently gotten worse. Pt states it starts in his R leg and travels through both legs when standing. Pt states he can't go to the store or outside events with beacuse he's afraid his legs will give out. Pt states he was able to do most ADL's independently. Rehab PT IP Eval Objective Appearance Patient Behavior Appropriate,Cooperative Patient Orientation Person,Place,Name,Birthday, Situation Difficulty following instructions none Speech Pattern Clear,Appropriate,Coherent Ambulation Patient Able to Ambulate Yes Ambulation Observation IP General Gait Pattern Observation Wide Based Gait Ambulation Distance (feet) 40 Ambulation Assistive Device Rolling Walker Ambulation Ability Contact Guard/Hand Hold Balance Ability to Arise Able, uses arms to help Sitting Balance Steady, safe Standing Balance
== END 2021-02-11 10:42 | disposition home health service (06) ==
PROVIDERS: Admitting Provider Internal Medicine Adolescent Medicine; PCP Internal Medicine Adolescent Medicine; Visit Provider Internal Medicine Adolescent Medicine
DX: R20.8 Other disturbances of skin sensation (principal); I48.91 Unspecified atrial fibrillation; I11.0 Hypertensive heart disease with heart failure; I50.9 Heart failure, unspecified; J44.9 Chronic obstructive pulmonary disease, unspecified; Z95.5 Presence of coronary angioplasty implant and graft; R53.1 Weakness; Z79.899 Other long term (current) drug therapy; Z88.0 Allergy status to penicillin; Z20.822 Contact with and (suspected) exposure to COVID-19; Z79.01 Long term (current) use of anticoagulants
CPT/HCPCS: G0378; G0379; 72131; 80053; 81001; 82962; 83735; 84436; 84443; 84479; 85007; 85025; 93005; 97161; 97165; C9803; U0003; U0005

== ENCOUNTER → 2021-07-27 12:20 | Outpatient (CLI) | payer MEDICARE, SELFPAY ==
[2021-07-27 13:30] VITALS: PULSE 64; PULSE 70
== END ==
PROVIDERS: PCP Internal Medicine Adolescent Medicine; Visit Provider Internal Medicine
DX: I48.0 Paroxysmal atrial fibrillation (principal); E78.2 Mixed hyperlipidemia; I35.0 Nonrheumatic aortic (valve) stenosis; I10 Essential (primary) hypertension; R06.00 Dyspnea, unspecified; I25.10 Atherosclerotic heart disease of native coronary artery without angina pectoris; I50.22 Chronic systolic (congestive) heart failure; E66.9 Obesity, unspecified; I70.1 Atherosclerosis of renal artery; I51.89 Other ill-defined heart diseases
CPT/HCPCS: 94060; 94640; 94727; 94729

== ENCOUNTER → 2021-10-27 12:08 | Outpatient (CLI) | payer MEDICARE, SELFPAY ==
[2021-10-27 14:07] LABS: Basophils # 0.1 K/mm3 (0-0.2); Basophils % 0.4 % (0.1-2.0); Eosinophils # 0.2 K/mm3 (0.0-0.4); Eosinophils % 1.5 % (0.1-12.0); Hematocrit 41.1 % (42.0-52.0); Hemoglobin 13.7 g/dL (14.1-18.0); Lymphocytes # 0.4 K/mm3 (0.7-4.5); Lymphocytes % 2.8 % (10-50); Mean Corpuscular HGB Conc 33.4 g/dL (31.8-35.4); Mean Corpuscular Hemoglobin 32.4 pg (27.0-31.2); Mean Corpuscular Volume 97.3 fl (80-94); Mean Platelet Volume 8.1 fl (7.4-10.4); Monocytes # 0.6 K/mm3 (0.1-1.0); Monocytes % 4.1 % (1.7-9.3); Neutrophils # 13.4 K/mm3 (1.8-7.8); Neutrophils % 91.2 % (37.0-80.0); Platelet Count 161 K/mm3 (142-424); Red Blood Count 4.23 M/mm3 (4.60-6.20); Red Cell Distribution Width 15.1 % (11.5-17.5); White Blood Count 14.7 K/mm3 (4.8-10.8)
[2021-10-27 14:48] LABS: MANUAL DIFFERENTIAL MANUAL DIFFERENTIAL (MANUAL DIFF)
[2021-10-27 16:05] LABS: Chloride 103 mmol/L (98-107); Potassium 3.9 mmoL/L (3.5-5.1); Sodium 140 mmol/L (136-145)
[2021-10-27 16:07] LABS: Blood Urea Nitrogen 20 mg/dl (9-20); Estimated Glomerular Filt Rate 66 ml/min (>60); GFR (African American) 80 ML/MIN (>60)
[2021-10-27 16:08] LABS: Alanine Aminotransferase 28 U/L (12-78); Albumin Level 4.1 g/dl (3.5-5.0); Alkaline Phosphatase 96 U/L (38-126); Anion Gap 12.9 mEq/L (5-15); Aspartate Amino Transferase 32 U/L (17-59); Bilirubin,Direct 0.3 mg/dl (0.0-0.4); Bilirubin,Indirect 0.4 mg/dL (0.0-0.9); Bilirubin,Total 0.7 mg/dl (0.2-1.3); Bilirubin,Unconjugated 0.3 mg/dL (0.0-1.1); Calcium 10.2 mg/dl (8.4-10.2); Carbon Dioxide 28 mmol/L (22.0-30.0); Glucose 120 mg/dl (74-100); Total Protein,Serum 7.6 g/dl (6.3-8.2)
[2021-10-27 16:25] LABS: Free T4 (Free Thyroxine) 1.92 ng/dl (0.78-2.19)
[2021-10-27 19:50] LABS: Anisocytosis 1+; Lymphocytes % 8 % (10-50); Monocytes % 2 % (2-9); Neutrophils % 89 % (42-76); Platelet Estimate Normal; Total Cells Counted 100
== END ==
PROVIDERS: PCP Internal Medicine Adolescent Medicine; Visit Provider Physician Assistant
DX: E78.2 Mixed hyperlipidemia; I25.10 Atherosclerotic heart disease of native coronary artery without angina pectoris; I35.0 Nonrheumatic aortic (valve) stenosis; I48.0 Paroxysmal atrial fibrillation; I50.22 Chronic systolic (congestive) heart failure; I70.1 Atherosclerosis of renal artery; R06.00 Dyspnea, unspecified; R19.7 Diarrhea, unspecified
CPT/HCPCS: 36415; 80048; 80076; 84439; 84443; 85007; 85025

== ENCOUNTER 2021-10-27 16:14 | Observation (INO) | payer MEDICARE, SELFPAY ==
[2021-10-27] VITALS (9 sets, daily range): BP systolic 96–146; BP diastolic 64–84; PULSE 71–89; RESP 18–20; TEMP 36.4–37.2; O2SAT 90–98; BMI 34.8; BMI 34.7
--- NOTE | 2021-10-27 16:14 | ECG_ITS ---
APPROVED REPORT Exam: Resting ECG HR:83 bpm ECG Measurements Heart Rate 83 AXES DC 268 P 7 QRSd 106 QRS 20 QT 381 T 64 QTc 421 Conclusion SINUS RHYTHM WITH FIRST DEGREE AV BLOCK LOW QRS VOLTAGE IN PRECORDIAL LEADS [QRS DEFLECTION < 1.0 mV IN CHEST LEADS] ABNORMAL ECG UNCONFIRMED REPORT Electronically signed by : Henrry Vegas MD 10/28/2021 21:01:52
--- NOTE | 2021-10-27 16:19 | XR_ITS ---
FINAL REPORT CLINICAL HISTORY: COUGH COMPARISON: January 05, 2021 FINDINGS: The heart size is normal. The mediastinum is normal. There is no focal infiltrate or edema. There are no pleural effusions. There is no pneumothorax. There is no osseous abnormality. IMPRESSION: No acute cardiopulmonary process. Stable exam. Reviewed, Interpreted and Dictated by Jassi Pretty III, MD Transcribed by Aleksandar Goetz Authenticated and . [facility]
[2021-10-27 16:26] LABS: POC Glucose,Bedside 139 (70-110)
[2021-10-27 16:35] LABS: Basophils % 0.2 % (0.1-2.0); Eosinophils # 0.3 K/mm3 (0.0-0.4); Hematocrit 39.5 % (42.0-52.0); Hemoglobin 13.4 g/dL (14.1-18.0); Lymphocytes # 0.3 K/mm3 (0.7-4.5); Lymphocytes % 2.3 % (10-50); Mean Corpuscular HGB Conc 33.9 g/dL (31.8-35.4); Mean Corpuscular Hemoglobin 33.3 pg (27.0-31.2); Mean Platelet Volume 8.1 fl (7.4-10.4); Monocytes # 0.5 K/mm3 (0.1-1.0); Monocytes % 3.3 % (1.7-9.3); Neutrophils # 13.2 K/mm3 (1.8-7.8); Neutrophils % 92.1 % (37.0-80.0); Platelet Count 153 K/mm3 (142-424); Red Blood Count 4.03 M/mm3 (4.60-6.20); White Blood Count 14.3 K/mm3 (4.8-10.8)
[2021-10-27 16:49] LABS: Chloride 104 mmol/L (98-107); Sodium 139 mmol/L (136-145)
[2021-10-27 16:50] LABS: Potassium 3.4 mmoL/L (3.5-5.1)
[2021-10-27 16:52] LABS: Alanine Aminotransferase 30 U/L (12-78); Albumin/Globulin Ratio 1.1 (1.1-1.8); Alkaline Phosphatase 98 U/L (38-126); Anion Gap 10.4 mEq/L (5-15); Aspartate Amino Transferase 38 U/L (17-59); Blood Urea Nitrogen 19 mg/dl (9-20); Carbon Dioxide 28 mmol/L (22.0-30.0); Creatinine Clearance Estimated 89 mL/min (50-200); Estimated Glomerular Filt Rate 60 ml/min (>60); GFR (African American) 72 ML/MIN (>60); Globulin 3.6 g/dL (1.3-3.2); Total Protein,Serum 7.6 g/dl (6.3-8.2)
[2021-10-27 16:53] LABS: Calcium 10.1 mg/dl (8.4-10.2); Glucose 143 mg/dl (74-100)
[2021-10-27 17:04] LABS: Troponin I 0.02 ng/ml (0.00-0.034)
--- NOTE | 2021-10-27 17:10 | HMH.EDGENADL ---
ED Disposition Clinical Impression: Weakness of both legs, Unable to ambulate Spinal stenosis Qualifiers: Spinal region: unspecified Qualified Code(s): M48.00 - Spinal stenosis, site unspecified Disposition: Admitted as Observation Condition on Discharge: Fair - Critical Care Critical Care Time: No Attestation: On 10/27/21, the high probability of a clinically significant, sudden or life threatening deterioration of the following system(s) required my full and direct attention, intervention and personal management. The time I documented below is in addition to time spent performing reported procedures but includes the following listed in this critical care notation. Medical Decision Making - Medical Records Medical records reviewed: Yes: I reviewed the patient's medical records. MR Comment: Reviewed cardiology office note from today. He was being seen for 3-month follow-up. He did mention his progressive weakness and a referral to Dr. Simms was discussed. Reviewed discharge summary from admission 02/10/2021, he was admitted for the same symptoms of leg weakness and unable to ambulate. He had a CT of his lumbar spine. He has spinal stenosis. - Carlos Inquiry Pt receiving controlled substance: No Vital Signs: 10/27/21 16:08 10/27/21 16:31 10/27/21 17:01 Temperature 99.0 F Temperature Source Oral Pulse Rate 85 80 Pulse Rate [Brachial] 84 Respiratory Rate 20 18 Blood Pressure 118/75 115/64 Blood Pressure [Left Arm] 121/71 Blood Pressure Mean 89 79 Blood Pressure Mean [Left Arm] 87 Blood Pressure Source [Left Arm] Automatic Cuff Blood Pressure Position [Left Arm] Sitting 02 Sat by Pulse Oximetry 98 98 96 Oxygen Delivery Method Nasal Cannula Oxygen Flow Rate (LPM) 2 10/27/21 17:31 10/27/21 18:01 10/27/21 18:30 Temperature Temperature Source Pulse Rate 80 76 76 Pulse Rate [Brachial] Respiratory Rate 18 18 18 Blood Pressure 109/84 L 96/67 L 114/74 Blood Pressure [Left Arm] Blood Pressure Mean 87 76 82 Blood Pressure Mean [Left Arm] Blood Pressure Source [Left Arm] Blood Pressure Position [Left Arm] 02 Sat by Pulse Oximetry 96 98 96 Oxygen Delivery Method Oxygen Flow Rate (LPM) - Lab Data Lab Results 10/27/21 16:15: WBC 14.3 H, RBC 4.03 L, Hgb 13.4 L, Hct 39.5 L, MCV 98.0 H, MCH 33.3 H, MCHC 33.9, RDW 15.0, Plt Count 153, MPV 8.1, Neut % (Auto) 92.1 H, Lymph % (Auto) 2.3 L, [place] % (Auto) 3.3, Eos % (Auto) 2.0, Baso % (Auto) 0.2, Neut # (Auto) 13.2 H, Lymph # (Auto) 0.3 L, [place] # (Auto) 0.5, Eos # (Auto) 0.3, Baso # (Auto) 0.0 10/27/21 16:15: Sodium 139, Potassium 3.4 L, Chloride 104, Carbon Dioxide 28, Anion Gap 10.4, BUN 19, Creatinine 1.20, Estimated Creat Clear 89, Estimated GFR 60, Est GFR ( Amer) 72, Glucose 143 H, Calcium 10.1, Total Bilirubin 1.0, AST 38, ALT 30, Alkaline Phosphatase 98, Troponin I 0.02, Total Protein 7.6, Albumin 4.0, Globulin 3.6 H, Albumin/Globulin Ratio 1.1 10/27/21 16:15: Total Creatine Kinase 96 10/27/21 16:16: POC Glucose 139 H 10/27/21 17:06: SARS-CoV-2 (PCR) Not detected, Influenza A Untype (PCR) Not detected, Influenza Type B (PCR) Not detected 10/27/21 17:53: Urine Color Yellow, Urine Appearance Clear, Urine pH 5.5, Ur Specific [place] 1.020, Urine Protein 1+, Urine Glucose (UA) Negative, Urine Ketones Negative, Urine Blood Negative, Urine Nitrate Negative, Urine Bilirubin Negative, Urine Urobilinogen 1.0, Ur Leukocyte Esterase Negative, Urine RBC None, Urine WBC None, Ur Squamous Epith Cells Occasional, Urine Bacteria None 10/27/21 17:55: Lactate 1.2 Result diagrams: 10/27/21 16:15 10/27/21 16:15 Orders (Tests/Meds): ED MEDICATIONS Generic Name Dose Route Start Last Admin Trade Name Freq PRN Reason Stop Dose Admin Sodium Chloride 10 ml 10/27/21 16:19 Sodium Chloride 0.9% 10ml Flush Syringe IV 11/26/21 16:18 NEEDED PRN Maintain IV Site ORDERS Category Date Time Status Blood Cu
--- NOTE | 2021-10-27 17:12 | PC.NURSE ---
DULCE HUDSON at speaking with patient
--- NOTE | 2021-10-27 17:13 | PC.NURSE ---
ED MD AT BEDSIDE TO EVALUATE PT
--- NOTE | 2021-10-27 17:17 | PC.NURSE ---
PT PROVIDED URINAL FOR UA. CALL LIGHT WITHIN REACH. NO NEEDS AT THIS TIME
[2021-10-27 17:32] LABS: Creatine Kinase 96 U/L (55-170)
--- NOTE | 2021-10-27 17:41 | PC.NURSE ---
pt still unable to void at this time. Told pt we needed UA PEARL
[2021-10-27 17:44] LABS: Coronavirus 19, PCR Not Detected (NotDetected); Influenza A, PCR Not Detected (NotDetected); Influenza B, PCR Not Detected (NotDetected)
--- NOTE | 2021-10-27 18:00 | PC.NURSE ---
LACTIC AND BLOOD CULTURES COLLECTED AND SENT TO LAB [facility] U[facility]
[2021-10-27 18:07] LABS: Microscopic, Urine URINE MICROSCOPIC (MICROSCOPIC)
[2021-10-27 18:10] LABS: Appearance,Urine CLEAR (Clear); Bilirubin,Urine Negative (Negative); Blood, Urine Negative (Negative); Color,Urine YELLOW (Yellow); Glucose,Urine (UA) Negative (Negative); Ketones,Urine Negative (Negative); Leukocyte Esterase,Urine Negative (Negative); Nitrate,Urine Negative (Negative); PH,Urine 5.5 (5.0-8.5); Protein,Urine 1+ (Negative)
[2021-10-27 18:27] LABS: Lactic Acid 1.2 mmol/L (0.7-2.1)
--- NOTE | 2021-10-27 18:36 | PC.NURSE ---
at , updating pt about test results, wants pt to try to ambulate and if he can, pt wants to go home.
[2021-10-27 19:41] LABS: Squamous Epithelial Cell,Urine Occasional #/hpf (0-5)
--- NOTE | 2021-10-27 20:31 | PC.NURSE ---
PT ARRIVED TO FLOOR [facility]IA [facility] AT THIS TIME
[2021-10-28 04:00] VITALS: BP 106/63; PULSE 69; RESP 16; TEMP 36.9; O2SAT 91
--- NOTE | 2021-10-28 04:00 | PC.NURSE ---
pt slept most of the night, alert and oriented x4, pt did not ambulate and uses urinal and brief, pt complain that he had weakness and that the doctors thought it may be his medicine, VSS, no other issues or concerns at this time.
--- NOTE | 2021-10-28 07:31 | HMH.PHAVTE ---
[facility] Pharmacy VTE Monitoring - Patient Demographics Admission date: 10/27/21 Report Date: 10/28/21 Time: 07:31 Allergies/Adverse Reactions: Patient Allergies Penicillins Allergy (Verified 10/27/21 13:04) Height: 1.8 m Weight: 112.627 kg Patient Problems: Current Active Problems Weakness of both legs (Acute) Unable to ambulate (Acute) Spinal stenosis (Acute) - VTE Risk Labs: VTE Related Lab Results Hgb 13.4 g/dL (14.1-18.0) L 10/27/21 16:15 Hct 39.5 % (42.0-52.0) L 10/27/21 16:15 Plt Count 153 K/mm3 (142-424) 10/27/21 16:15 BUN 19 mg/dl (9-20) 10/27/21 16:15 Creatinine 1.20 mg/dl (0.66-1.25) 10/27/21 16:15 Estimated Creat Clear 89 mL/min (50-200) 10/27/21 16:15 Was VTE Risk Assessment Performed: Yes VTE Score: 5 VTE Risk Level: Low Risk - Prophylaxis VTE Prophylaxis Ordered?: Yes Types of VTE Prophylaxis: TEDS Knee High, Pharmacological Location of Applied Device: Bilateral Lower Extremeties Pharmacologic Type: Other (XARELTO)
[2021-10-28 08:00] VITALS: BP 125/74; PULSE 68; RESP 16; TEMP 36.6; O2SAT 96
--- NOTE | 2021-10-28 08:28 | HMH.HP ---
*Admission Date: 10/27/21 *Chief complaint: Weakness/inability to walk *History of present illness: 71-year-old male with long history of multiple medical problems including chronic atrial fibrillation. Diastolic and systolic CHF, and significant history of lymphedema and chronic pedal edema, who also has a history of spinal stenosis and a history of temporary nonambulatory status several times over the past years. He came to the emergency department because he was unable to get up out of his chair or bed yesterday. He states that he felt like he was able to move his legs but had no power in the legs and was able to stand or propel himself. In the ER he was found to be weak, lab work-up was fairly unremarkable with no metabolic causes of weakness and his chest x-ray was clear. He was admitted observation for further evaluation and physical therapy evaluation. This morning he states that he feels continued weakness, but a little bit better than yesterday. [facility] History I have reviewed the patient's past medical history: Yes Medical History: Reports:: Arrhythmia, Asthma, Atrial Fibrillation, Congestive Heart Failure, Chronic Obstructive Pulmonary Disease (COPD), Congenital Heart Disease, Hyperlipidemia, Hypertension, Palpitations, Transient Ischemic Attacks (TIA) Denies:: Cancer, Diabetes Mellitus Type 1, Diabetes Mellitus Type 2, Home Oxygen, Internal Pacemaker, MRSA, Seizures *Have you ever received a pneumonia vaccine?: Yes *Have you received a flu vaccine this season?: Yes Other Medical History: Reports: Anemia, Arthritis, Cataracts Laterality Cases: Bilateral: Other Other Surgeries: Yes: No Previous Surgery, Appendectomy, Cardiac Catheterization, Colonoscopy, Coronary Stent, Hernia Repair, Other (back surgery). No: Pacemaker Amputation: No Fractures: No - *Social History Last grade of school completed: 11th or 12th Smoking Status: Former smoker Tobacco Type: cigarettes # Packs/Day (cigarettes): 2 #Yrs smoked (if former smoker): 39 Alcohol Intake: never Alcohol Intake Frequency:: other Substance Use Type: denies use *Occupational Status:: retired Housing: house Household Members: spouse *Travel in the last 8 weeks: None Family Hx:: Hyperlipidemia, Hypertension Review of Systems - Review of Systems Review of systems:: pertinent systems reviewed and negative unless documented below - *Neurologic Reports other (Chronic weakness of the legs), Denies headache(s), Denies numbness Meds Home Medications Medication Instructions Recorded Confirmed Type Atorvastatin Calcium [Lipitor 40mg 40 mg PO HS #90 tab 01/09/21 10/27/21 Rx Tab] L. Acidophilus/Strept/LA P-[place] 1 cap PO DAILY 30 Days #30 cap 01/09/21 10/27/21 Rx [Jaquelin-Q Probiotic Capsule] Rivaroxaban [Xarelto 20mg Tablet*] 20 mg PO HS 30 Days #30 tab 01/09/21 10/27/21 Rx Sacubitril/Valsartan [Entresto 49 1 tab PO BID 30 Days #60 tab 01/09/21 10/27/21 Rx mg-51 mg Tablet] carvediloL [Carvedilol 12.5mg Tab] 12.5 mg PO BID #180 tab 01/09/21 10/27/21 Rx Bifidobacterium Infantis [Align] 4 mg PO DAILY 02/10/21 10/27/21 History Famotidine [Pepcid 20mg Tablet] 20 mg PO BID 02/10/21 10/27/21 History Sucralfate [Carafate 1gm Tab] 1 gm PO QID 02/10/21 10/27/21 History allopurinoL [Allopurinol 300mg 300 mg PO DAILY 02/10/21 10/27/21 History tablet] Furosemide [Furosemide 40MG tAB*] 40 mg PO DAILY 02/11/21 10/27/21 History Tamsulosin HCl 0.8 mg PO HS 02/11/21 10/27/21 History amiodarone 200 mg tablet 200 mg PO DAILY tab 07/22/21 10/27/21 History albuterol sulfate 90 mcg/actuation 1 inh INHALATION Q6H PRN 90 Days 09/01/21 10/27/21 Rx aerosol inhaler #8.5 g Eplerenone [Inspra] 25 mg PO DAILY 10/27/21 10/27/21 History Fluticasone/Vilanterol [Breo 1 inh IH DAILY 10/27/21 10/27/21 History Ellipta] Allergies Allergy/AdvReac Type Severity Reaction Status Date / Time Penicillins Allergy Verified 10/27/21 13:04 Exam Vital signs and Labs for Last 24 Hour
--- NOTE | 2021-10-28 10:08 | HMH.OTEV ---
OT Inpatient Evaluation Rehab OT IP Evaluation Start: 10/28/21 08:19 Freq: ONCE Status: Complete Protocol: Document 10/28/21 09:53 ALEXANDER (Rec: 10/28/21 10:07 ALEXANDER [id number]) Rehab OT IP Assessment Subjective History 71-year-old male with long history of multiple medical problems including chronic atrial fibrillation. Diastolic and systolic CHF, and significant history of lymphedema and chronic pedal edema, who also has a history of spinal stenosis and a history of temporary nonambulatory status several times over the past years. He came to the emergency department because he was unable to get up out of his chair or bed yesterday. He states that he felt like he was able to move his legs but had no power in the legs and was able to stand or propel himself. In the ER he was found to be weak, lab work-up was fairly unremarkable with no metabolic causes of weakness and his chest x-ray was clear. He was admitted observation for further evaluation and physical therapy evaluation. This morning he states that he feels continued weakness, but a little bit better than yesterday. [facility] History I have reviewed the patient's past medical history: Yes Medical History: Reports:: Arrhythmia, Asthma, Atrial Fibrillation, Congestive Heart Failure, Chronic Obstructive Pulmonary Disease (COPD), Congenital Heart Disease, Hyperlipidemia, Hypertension, Palpitations, Transient Ischemic Attacks (TIA). Patient live in 1 story home with 1-2 MARTHA with .
--- NOTE | 2021-10-28 10:25 | HMH.PHAINT ---
MEDICATION RECONCILIATION COMPLETED ON PATIENT USING EXTERNAL FILL HISTORY FROM PHARMACY AND LIST FROM CARDIOLOGY OFFICE. -KWAKU CASHD
--- NOTE | 2021-10-28 10:25 | HMH.PTEV ---
Physical Therapy Evaluation Rehab PT IP Evaluation Start: 10/28/21 08:19 Freq: ONCE Status: Active Protocol: Document 10/28/21 10:18 SHIRLEY (Rec: 10/28/21 10:25 SHIRLEY [id number]) Subjective/History History History 71-year-old male with long history of multiple medical problems including chronic atrial fibrillation. Diastolic and systolic CHF, and significant history of lymphedema and chronic pedal edema, who also has a history of spinal stenosis and a history of temporary nonambulatory status several times over the past years. He came to the emergency department because he was unable to get up out of his chair or bed yesterday. He states that he felt like he was able to move his legs but had no power in the legs and was able to stand or propel himself. He was admitted observation for further evaluation and physical therapy evaluation. Subjective Subjective Pt reports feeling better - states he just got weak at home Pt rpeorts it seems like it comes and goes Rehab PT IP Eval Objective Appearance Patient Behavior Appropriate,Cooperative Patient Orientation Place,Name,Birthday,Year Difficulty following instructions none Speech Pattern Appropriate Ambulation Patient Able to Ambulate Yes Ambulation Observation IP General Gait Pattern Observation Shuffling Step Ambulation Distance (feet) 50 Ambulation Assistive Device Rolling Walker Ambulation Ability Supervision/Stand by,Contact Guard/Hand Hold Balance Ability to Arise Able, uses arms to help Sitting Balance Steady, safe Standing Balance Steady, wide stance Dynamic Sitting Balance Ability Good Dynamic Standing Balance Ability Fair Transfers Chair Transfer Ability Contact Guard/Hand Hold Sit to Stand Chair Transfer Ability Contact Guard/Hand Hold ROM All Extremities PT ROM Status WFL MMT All Extremities PT MMT WFL Rehab PT IP prob,goals,pl
--- NOTE | 2021-10-28 11:46 | SW/DCPLANNER ---
Addendum entered by Priscila Stafford 10/29/21 10:10: Tereza bethea/ [facility] stated that services will begin this week for this patient. Original Note: I spoke with this patient/family regarding plans once medically stable for discharge. Patient was able to ambulate 50 ft with PT. Patient and both agree that they feel patient will be able to discharge home with home health services. Patient prefers to use [facility] at time of discharge. I will fax all patient information/order once patient is medically stable for discharge.
--- NOTE | 2021-10-28 13:06 | HMH.DCSUM ---
General - General Admission date:: 10/27/21 Discharge date: 10/28/21 HPI HPI: 71-year-old male with long history of multiple medical problems including chronic atrial fibrillation. Diastolic and systolic CHF, and significant history of lymphedema and chronic pedal edema, who also has a history of spinal stenosis and a history of temporary nonambulatory status several times over the past years. He came to the emergency department because he was unable to get up out of his chair or bed yesterday. He states that he felt like he was able to move his legs but had no power in the legs and was able to stand or propel himself. In the ER he was found to be weak, lab work-up was fairly unremarkable with no metabolic causes of weakness and his chest x-ray was clear. He was admitted observation for further evaluation and physical therapy evaluation. This morning he states that he feels continued weakness, but a little bit better than yesterday. Hospital Course Hospital Course: Patient was admitted to observation. Overnight he developed felt a little better this morning. Physical therapy and Occupational Therapy evaluated him, they were able to get him up with some assistance and he was able to ambulate 50 yards with his walker. He felt much stronger. After consideration of his case and his previous episodes I wonder if he has significant spinal stenosis that is exacerbated with some type of movement or other issues and causes a temporary spinal stenosis with exacerbation and weakness along with inability to ambulate. Certainly is improved. He has been admitted to skilled care in the past with PT but he and his do not wish to do this and our aids social worker has arranged home health evaluation for tomorrow to do PT and OT at home. Given my [id number] exam with him and his difficulty leaving home because of weakness, his history of multiple falls and more extremity pain and immobility he does qualify for home health for PT/OT evaluation. I did give him an injection of dexamethasone intravenously today to help with possible swelling. I will reevaluate him in my office next week. Objective Vital signs: Temp Pulse Resp BP Pulse Ox 97.8 F 68 16 125/74 96 10/28/21 08:00 10/28/21 08:00 10/28/21 08:00 10/28/21 08:00 10/28/21 08:00 no acute distress - *Routine HEENT Exam Head: Present: normocephalic Eye: Present: EOMI, PERRL ENT: Present: mucous membranes moist - *Routine Neck Exam Present: supple - *Routine Respiratory Exam Present: CTA bilaterally - *Routine Cardiovascular Exam Present: murmur, irregular rhythm - *Routine Abdominal Exam Present: soft, normoactive bowel sounds. Absent: tenderness - *Routine Extremities Exam Absent: cyanosis, clubbing, edema - *Routine Skin Exam Present: warm. Absent: rash - *Routine Neurological Exam Present: alert See PT evaluation to evaluate lower muscular strength - Detailed Eye Exam Eyelids: Bilateral normal inspection Results Labs on day of discharge: Labs from last 24 hours 10/27/21 10/27/21 10/27/21 17:55 17:53 17:06 WBC RBC Hgb Hct MCV MCH MCHC RDW Plt Count MPV Neut % (Auto) Lymph % (Auto) [place] % (Auto) Eos % (Auto) Baso % (Auto) Neut # (Auto) Lymph # (Auto) [place] # (Auto) Eos # (Auto) Baso # (Auto) Sodium Potassium Chloride Carbon Dioxide Anion Gap BUN Creatinine Estimated Creat Clear Estimated GFR Est GFR ( Amer) Glucose POC Glucose Lactate 1.2 Calcium Total Bilirubin AST ALT Alkaline Phosphatase Total Creatine Kinase Troponin I Total Protein Albumin Globulin Albumin/Globulin Ratio Urine Color Yellow Urine Appearance Clear Urine pH 5.5 Ur Specific [place] 1.020 Urine Protein 1+ Urine Glucose (UA) Negative Urine Ketones Negative Urine
--- NOTE | 2021-10-29 14:25 | CARE MANAGER ---
Spoke with patient's . Patient is doing well and is aware of follow up appointments. Denies any questions or concerns. TETO Nunez
== END 2021-10-28 15:41 | disposition home health service (06) ==
LOC: ER 19:18 → 2ND 20:05
PROVIDERS: Admitting Provider Emergency Medicine; Emergency Provider Emergency Medicine; PCP Internal Medicine Adolescent Medicine; Visit Provider Internal Medicine Adolescent Medicine
DX: R29.898 Other symptoms and signs involving the musculoskeletal system (principal); M48.00 Spinal stenosis, site unspecified; I48.20 Chronic atrial fibrillation, unspecified; I50.42 Chronic combined systolic (congestive) and diastolic (congestive) heart failure; I11.0 Hypertensive heart disease with heart failure; G62.9 Polyneuropathy, unspecified; I89.0 Lymphedema, not elsewhere classified; Z87.891 Personal history of nicotine dependence; Z95.5 Presence of coronary angioplasty implant and graft; I25.10 Atherosclerotic heart disease of native coronary artery without angina pectoris; E11.9 Type 2 diabetes mellitus without complications; J44.9 Chronic obstructive pulmonary disease, unspecified; M54.16 Radiculopathy, lumbar region; Z79.01 Long term (current) use of anticoagulants; R29.6 Repeated falls; Z20.822 Contact with and (suspected) exposure to COVID-19
CPT/HCPCS: G0378; 71045; 80053; 81001; 82550; 82962; 83605; 84484; 85025; 87040; 93005; 97116; 97161; 97165; 97530; 99285; C9803; U0003; U0005

== ENCOUNTER → 2021-11-02 13:03 | Outpatient (CLI) | payer MEDICARE, SELFPAY ==
--- NOTE | 2021-11-02 13:04 | CT_ITS ---
FINAL REPORT TECHNIQUE: Thin section axial images were obtained from the lung apices through the upper abdomen without contrast. Reconstruction images were obtained from the axial data. High-resolution images were also obtained at intermittent intervals. This study was performed with techniques to keep radiation doses as low as reasonably achievable (ALARA). Individualized dose reduction techniques using automated exposure control or adjustment of mA and/or kV according to the patient's size were employed. CLINICAL HISTORY: I48.0 - Paroxysmal atrial fibrillation R/O PULMONARY FIBROSIS SOA COMPARISON: None. FINDINGS: There is soft tissue along the left aspect of the trachea which is likely in continuity with the left thyroid lobe. There is no mediastinal, hilar, or axillary lymphadenopathy. There is a small pericardial effusion. There is no pleural effusion. There is a cluster of small nodules in the anterior right upper lobe which are favored to be postinflammatory. There are several tiny nodules in the left upper lobe on images 15 and 16, also likely postinflammatory. There is lingular and right middle lobe atelectasis. There is no pulmonary mass and there is no consolidation. Limited evaluation of the upper abdomen reveals a hypodense lesion in the upper pole of the right kidney which is incompletely evaluated. There is diverticulosis. No acute abnormality. There is no acute osseous abnormality. Intermittent high-resolution images reveal no evidence of honeycomb fibrosis. There is no bronchiectasis. No interlobular septal thickening is identified. IMPRESSION: 1. No evidence of pulmonary fibrosis or chronic interstitial lung disease. 2. Small clustered nodules in the upper lobes bilaterally favored to be postinflammatory. 3. Areas of atelectasis. Authenticated and [facility]
== END ==
PROVIDERS: PCP Internal Medicine Adolescent Medicine; Visit Provider Physician Assistant
DX: E66.9 Obesity, unspecified (principal); E78.2 Mixed hyperlipidemia; I11.0 Hypertensive heart disease with heart failure; I25.10 Atherosclerotic heart disease of native coronary artery without angina pectoris; I35.0 Nonrheumatic aortic (valve) stenosis; I48.0 Paroxysmal atrial fibrillation; I50.22 Chronic systolic (congestive) heart failure; I70.1 Atherosclerosis of renal artery; R05.9 Cough, unspecified; R06.00 Dyspnea, unspecified; R25.1 Tremor, unspecified; Z68.35 Body mass index [BMI] 35.0-35.9, adult
CPT/HCPCS: 71250

== ENCOUNTER → 2021-11-11 10:39 | Outpatient (CLI) | payer MEDICARE, SELFPAY ==
--- NOTE | 2021-11-11 10:47 | XR_ITS ---
FINAL REPORT CLINICAL HISTORY: falls, back pain FINDINGS: 5 views of the lumbar spine were obtained. There is fusion of L4-L5. There is no evidence of fracture or dislocation. The vertebral alignment is normal. There are moderate degenerative changes. There is multilevel disc space narrowing and osteophyte formation. No paraspinous soft tissue abnormalities identified. Vascular calcifications are present. IMPRESSION: Fusion of L4-L5. Moderate degenerative disc disease. Reviewed, Interpreted and Dictated by Jassi Pretty III, MD Transcribed by Aleksandar Goetz Authenticated and [facility]
[2021-11-11 12:49] LABS: Chloride 108 mmol/L (98-107); Potassium 4.4 mmoL/L (3.5-5.1); Sodium 143 mmol/L (136-145)
[2021-11-11 12:52] LABS: Alanine Aminotransferase 25 U/L (12-78); Albumin/Globulin Ratio 1.1 (1.1-1.8); Alkaline Phosphatase 117 U/L (38-126); Anion Gap 10.4 mEq/L (5-15); Aspartate Amino Transferase 31 U/L (17-59); Bilirubin,Total 0.2 mg/dl (0.2-1.3); Blood Urea Nitrogen 21 mg/dl (9-20); Carbon Dioxide 29 mmol/L (22.0-30.0); Estimated Glomerular Filt Rate 66 ml/min (>60); GFR (African American) 80 ML/MIN (>60); Globulin 3.5 g/dL (1.3-3.2); Total Protein,Serum 7.5 g/dl (6.3-8.2)
[2021-11-11 12:53] LABS: Calcium 10.4 mg/dl (8.4-10.2); Glucose 110 mg/dl (74-100)
[2021-11-11 14:38] LABS: Vitamin B12 660 pg/mL (239-931)
[2021-11-11 14:47] LABS: Folate > 20.00 ng/mL
[2021-11-15 04:07] LABS: Thyroid Stimulating Immunoglob <0.10 IU/L (0.00-0.55)
== END ==
PROVIDERS: PCP Internal Medicine Adolescent Medicine; Visit Provider Specialist
DX: R53.1 Weakness (principal); E05.90 Thyrotoxicosis, unspecified without thyrotoxic crisis or storm; R26.9 Unspecified abnormalities of gait and mobility; M48.061 Spinal stenosis, lumbar region without neurogenic claudication
CPT/HCPCS: 36415; 72110; 80053; 82607; 82746; 84445

== ENCOUNTER → 2021-11-19 13:34 | Outpatient (CLI) | payer MEDICARE, SELFPAY ==
[2021-11-19 14:51] LABS: Calcium 10.1 mg/dl (8.4-10.2)
[2021-11-19 15:04] LABS: Intact Parathyroid Hormone 120.7 pg/mL (7.5-53.5)
[2021-11-21 16:15] LABS: Calcium, Ionized 5.7 mg/dL (4.5-5.6)
== END ==
PROVIDERS: PCP Internal Medicine Adolescent Medicine; Visit Provider Specialist
DX: E83.52 Hypercalcemia (principal); M62.838 Other muscle spasm
CPT/HCPCS: 36415; 82310; 82330; 83970

== ENCOUNTER → 2021-11-20 14:10 | Outpatient (CLI) | payer MEDICARE, SELFPAY ==
--- NOTE | 2021-11-20 14:10 | MR_ITS ---
FINAL REPORT CLINICAL HISTORY: weakness. HISTORY SURGERY 2009. BILATERAL LBP AND LEG PAIN, NUMBNESS, AND TINGLING. RIGHT LEG IS WORSE. BILATERAL FEET NUMBNESS. 20ML PROHANCE GIVEN. FINDINGS: Multiplanar MR imaging of the lumbar spine was performed without and with contrast. On the sagittal T2-weighted images, abnormal decreased signal is seen throughout. Postoperative changes of fusion are seen at L4-5. There are multilevel endplate changes. The vertebral alignment is normal. There is no evidence of fracture. The conus is seen at approximately the L1 level and has an unremarkable appearance. T11-12: Annular disc bulge with moderate bilateral neural foraminal narrowing. T12-L1: An annular bulge is present. Facet arthropathy and osteophytes are present. There is mild bilateral neural foraminal narrowing. L1-2: An annular bulge is present. Facet arthropathy and osteophytes are present. There is severe right and moderate left neural foraminal narrowing. There is mild central canal stenosis with AP diameter of the thecal sac measuring 8 mm. L2-3: An annular bulge is present. Facet arthropathy and osteophytes are present. There is severe right and moderate left neural foraminal narrowing. L3-4: An annular bulge is present. Facet arthropathy and osteophytes are present. There is severe right and moderate left neural foraminal narrowing. There is a left foraminal inferiorly extruded disc with left L4 nerve root impingement. L4-5: Postoperative changes of fusion. Moderate bilateral neural foraminal narrowing. L5-S1: Annular disc bulge with severe bilateral neural foraminal narrowing. The spurring is seen of the SI joints. There is a 25 mm, probable hemorrhagic cyst noted in the upper pole of the right kidney. No abnormal contrast enhancement is identified. IMPRESSION: Multilevel mild degenerative disc disease and spondylosis with areas of neural foraminal narrowing as described. Reviewed, Interpreted and Dictated by Jassi Pretty III, MD Transcribed by Amy Wilcox Authenticated and [facility]
== END ==
PROVIDERS: PCP Internal Medicine Adolescent Medicine; Visit Provider Specialist
DX: G25.0 Essential tremor (principal); G95.19 Other vascular myelopathies; M48.061 Spinal stenosis, lumbar region without neurogenic claudication; R26.9 Unspecified abnormalities of gait and mobility; R53.1 Weakness
CPT/HCPCS: 72158; 76376; A9576

== ENCOUNTER → 2021-11-25 14:25 | Outpatient (CLI) | payer MEDICARE, SELFPAY ==
--- NOTE | 2021-11-25 14:25 | US_ITS ---
FINAL REPORT CLINICAL HISTORY: tremor FINDINGS: THYROID ULTRASOUND The right lobe of the thyroid measures 5.2 x 2.3 x 2.2 cm. The left lobe of the thyroid measures 5.1 x 3.2 x 2.6 cm. There are 4 right thyroid nodules. The 1st right thyroid nodule measures 5 x 4 x 4 mm is cystic consistent with TI-RADS 1. The 2nd right thyroid nodule measures 12 x 7 x 6 mm is solid and isoechoic consistent with TI-RADS 3. The 3rd right thyroid nodule measures 8 x 8 x 7 mm is cystic consistent with TI-RADS 1. The 4th right thyroid nodule measures 23 x 22 x 11 mm is heterogeneous, cystic, solid, and hypoechoic consistent with TI-RADS 3. The dominant nodule is on the left measuring 34 x 32 mm is solid and hypoechoic. This is either a TI-RADS 4 verses a parathyroid mass. IMPRESSION: Bilateral thyroid nodules as described. Recommend ultrasound-guided biopsy of the dominant left nodule. Reviewed, Interpreted and Dictated by Jassi Pretty III, MD Transcribed by Aleksandar Goetz Authenticated and [facility]
== END ==
PROVIDERS: PCP Internal Medicine Adolescent Medicine; Visit Provider Specialist
DX: E04.9 Nontoxic goiter, unspecified (principal)
CPT/HCPCS: 76536

== ENCOUNTER → 2021-12-29 19:56 | Outpatient (CLI) | payer MEDICARE, SELFPAY | PROVIDERS: PCP Internal Medicine Adolescent Medicine; Visit Provider Specialist | DX: G47.33 Obstructive sleep apnea (adult) (pediatric) (principal); R06.83 Snoring; R06.00 Dyspnea, unspecified; J45.40 Moderate persistent asthma, uncomplicated | CPT/HCPCS: 95810 ==

== ENCOUNTER → 2022-02-02 08:30 | Outpatient (CLI) | payer MEDICARE, SELFPAY ==
--- NOTE | 2022-02-02 08:36 | NM_ITS ---
FINAL REPORT TECHNIQUE: Multiple projection images of the neck were obtained immediately after the injection of 21.8 mCi technetium 99 M sestamibi and 2 hour delays. CLINICAL HISTORY: POSS. PARATHYROID ADENOMA 8:50AM 21.8 MCI TC SESTAMIBI FINDINGS: On the delayed images, there is persistent mild increased tracer activity in the left lower neck in the region of the lower pole of the left thyroid lobe. This is of uncertain significance, a parathyroid adenoma or hyperplasia is not excluded. IMPRESSION: Slightly increased tracer activity in the left lower neck, left parathyroid adenoma or hyperplasia is not excluded. Reviewed, Interpreted and Dictated by Jassi Pretty III, MD Transcribed by Mercedes Restrepo Authenticated and [facility]
== END ==
PROVIDERS: PCP Internal Medicine Adolescent Medicine; Visit Provider Student in an Organized Health Care Education/Training Program
DX: E04.2 Nontoxic multinodular goiter (principal); E83.52 Hypercalcemia
CPT/HCPCS: 78070; A9500

== ENCOUNTER → 2022-02-05 08:27 | Outpatient (CLI) | payer MEDICARE, SELFPAY ==
--- NOTE | 2022-02-05 08:27 | US_ITS ---
FINAL REPORT CLINICAL HISTORY: .LEFT THYROID FNA --Neo DE LEON FINDINGS: ULTRASOUND GUIDED LEFT THYROID/PARATHYROID BIOPSY HISTORY: Left thyroid/parathyroid mass. ATTENDING PHYSICIAN: Dr. Sukhwinder MD PHYSICIAN SHOULDER BONER: Isaura James PA-C PROCEDURE: Informed consent was obtained from the patient. A time out procedure was performed. Ultrasound was utilized to localize the dominant left thyroid/parathyroid nodule. Patient was prepped and draped in the usual sterile fashion over the left neck. 1% Lidocaine was utilized for local anesthesia. Five 25-gauge FNA passes were made of the left thyroid/parathyroid nodule using ultrasound guidance. Pathology is pending. Patient tolerated the procedure well and left the department in good condition. IMPRESSION: Technically successful ultrasound-guided FNA of a dominant left thyroid/parathyroid mass, as described. Reviewed, Interpreted and Dictated by Jassi Pretty III, MD Transcribed by Isaura James PA-C Authenticated and [facility]
== END ==
PROVIDERS: PCP Internal Medicine Adolescent Medicine; Visit Provider Student in an Organized Health Care Education/Training Program
DX: E04.2 Nontoxic multinodular goiter (principal)
CPT/HCPCS: 10005; 76536

== ENCOUNTER 2022-02-14 02:21 | Emergency (ER) | payer MEDICARE, SELFPAY ==
[2022-02-14] VITALS (17 sets, daily range): BP systolic 102–124; BP diastolic 55–95; PULSE 76–92; RESP 19–20; TEMP 36.9; O2SAT 94–99; BMI 35.2
--- NOTE | 2022-02-14 02:27 | ECG_ITS ---
APPROVED REPORT Exam: Resting ECG HR:89 bpm ECG Measurements Heart Rate 89 AXES NJ 194 P 245 QRSd 105 QRS -17 QT 406 T 75 QTc 453 Conclusion SINUS RHYTHM LOW QRS VOLTAGE IN PRECORDIAL LEADS [QRS DEFLECTION < 1.0 mV IN CHEST LEADS] BORDERLINE ECG UNCONFIRMED REPORT Electronically signed by : Henrry Vegas MD 02/15/2022 21:41:22
--- NOTE | 2022-02-14 02:29 | XR_ITS ---
PROCEDURE INFORMATION: Exam: XR Chest Exam date and time: 02/14/2022 2:44 AM Age: 72 years old Clinical indication: Other: Weakness; Additional info: Worsening weakness, assess for infection TECHNIQUE: Imaging protocol: Radiologic exam of the chest. Views: 1 view. COMPARISON: CT HIGH RESOLUTION CHEST 11/02/2021 1:19 PM FINDINGS: Lungs: Lungs are hyperinflated. Clear parenchyma. Pleural spaces: Unremarkable. No pleural effusion. No pneumothorax. Heart/Mediastinum: Mild cardiomegaly. Bones/joints: Unremarkable. IMPRESSION: Hyperinflated but clear lungs. No other acute cardiopulmonary abnormality.
--- NOTE | 2022-02-14 02:32 | HMH.EDGENADL ---
Discharge Plan Disposition Patient Disposition: Home, Self-Care Prescriptions Prescriptions: No Action albuterol sulfate 90 mcg/actuation HFA aerosol inhaler 1 inh IH Q6H PRN (Reason: shortness of breath or wheezing) 90 Days Qty: 8.5 3RF albuterol sulfate 1.25 mg/3 mL solution for nebulization 1.25 mg inhalation QID PRN (Reason: shortness of breath or wheezing) 90 Days Qty: 270 0RF amiloride 5 mg tablet 5 mg PO DAILY Qty: 30 5RF amiodarone 200 mg tablet 100 mg PO DAILY atorvastatin 40 mg tablet 40 mg PO HS Qty: 90 3RF carvedilol 12.5 mg tablet 12.5 mg PO BID Qty: 180 3RF famotidine 20 MG tablet 20 mg PO BID allopurinol 300 MG tablet 300 mg PO DAILY sucralfate 1 GM tablet 1 gm PO QID furosemide 40 MG tablet 40 mg PO DAILY tamsulosin 0.4 MG capsule 0.8 mg PO HS budesonide 0.5 mg/2 mL suspension for nebulization 0.5 mg inhalation Q12H Referrals Follow up/Referrals: Provider,Referral, MD [Primary Care Provider] - See instructions Activity Restrictions/Add. Instructions Additional Instructions/Restrictions: Your CT imaging today did not show any new concerns. Please continue to follow-up with your regular doctor, your rehab director, and your neurologist for long-term management of your medical problems. Please follow-up your thyroid and your macrocytic anemia with your regular doctor. Please be reevaluated if you develop any worsening symptoms. Clinical Impressions Clinical Impression: Bilateral leg weakness Discharge ED Provider: Mary Lou Montez General Adult HPI General Chief complaint: Weakness Stated complaint: weakness Time Seen by Provider: 02/14/22 02:25 History of Present Illness HPI narrative: 72-year-old male with extensive PMH including essential tremor, CAD status post stent placement, COPD, HTN, CHF who presents for acute onset of several hours of worsening numbness, weakness of his bilateral lower extremities. Patient is overall a poor historian and history is subsequently limited. States that he has experienced similar symptoms numerous times previously. Secondary to his symptoms, he has been unable to ambulate. He normally ambulates with a walker. He admits to mild confusion but denies headaches, fevers, chills, chest pain, shortness of breath, abdominal pain, urinary concerns, diarrhea. He notes chronic back pain that is no worse than usual. Patient normally takes Tylenol for discomfort. Related Data Home Medications Medication Instructions Recorded Confirmed allopurinol 300 mg tablet 300 mg PO DAILY gout 02/10/21 02/14/22 famotidine 20 mg tablet 20 mg PO BID GERD 02/10/21 02/14/22 sucralfate 1 gram tablet 1 gm PO QID acid reflux 02/10/21 02/14/22 furosemide 40 mg tablet 40 mg PO DAILY Fluid 02/11/21 02/14/22 tamsulosin 0.4 mg capsule 0.8 mg PO HS prostate 02/11/21 02/14/22 amiodarone 200 mg tablet 100 mg PO DAILY HEART RATE 11/04/21 02/14/22 budesonide 0.5 mg/2 mL suspension 0.5 mg inhalation Q12H Breathing 02/14/22 02/14/22 for nebulization problems Previous Rx's Medication Instructions Recorded atorvastatin 40 mg tablet 40 mg PO HS High cholesterol #90 01/09/21 tabs carvedilol 12.5 mg tablet 12.5 mg PO BID High blood pressure 01/09/21 #180 tabs amiloride 5 mg tablet 5 mg PO DAILY Fluid #30 tabs 11/03/21 albuterol sulfate 90 mcg/actuation 1 inh inhalation Q6H PRN shortness 12/15/21 aerosol inhaler of breath or wheezing 90 days #8.5 grams albuterol sulfate 1.25 mg/3 mL 1.25 mg (3 mL) inhalation QID PRN 12/16/21 solution for nebulization shortness of breath or wheezing 90 days #270 mL Allergies Allergy/AdvReac Type Severity Reaction Status Date / Time Penicillins Allergy Verified 02/09/22 14:19 [facility] Medical History (Updated 02/14/22 @ 07:40 by Mary Lou Montez MD) COPD (chronic obstructive pulmonary disease) Daytime somnolence Diarrhea Dyspnea Dyspnea on exertion Gynecomastia
[2022-02-14 03:00] LABS: Basophils % 0.2 % (0.1-2.0); Eosinophils # 0.2 K/mm3 (0.0-0.4); Eosinophils % 1.7 % (0.1-12.0); Hematocrit 45.1 % (42.0-52.0); Hemoglobin 13.7 g/dL (14.1-18.0); Lymphocytes # 0.3 K/mm3 (0.7-4.5); Lymphocytes % 2.4 % (10-50); Mean Corpuscular HGB Conc 30.4 g/dL (31.8-35.4); Mean Corpuscular Hemoglobin 32.4 pg (27.0-31.2); Mean Corpuscular Volume 106.5 fl (80-94); Mean Platelet Volume 8.6 fl (7.4-10.4); Monocytes # 0.4 K/mm3 (0.1-1.0); Monocytes % 3.3 % (1.7-9.3); Neutrophils # 12.4 K/mm3 (1.8-7.8); Neutrophils % 92.4 % (37.0-80.0); Platelet Count 183 K/mm3 (142-424); Red Blood Count 4.23 M/mm3 (4.60-6.20); Red Cell Distribution Width 16.2 % (11.5-17.5); White Blood Count 13.4 K/mm3 (4.8-10.8)
[2022-02-14 03:02] LABS: MANUAL DIFFERENTIAL MANUAL DIFFERENTIAL (MANUAL DIFF)
[2022-02-14 03:04] LABS: Chloride 102 mmol/L (98-107); Sodium 142 mmol/L (136-145)
[2022-02-14 03:06] LABS: Blood Urea Nitrogen 26 mg/dl (9-20); Creatinine Clearance Estimated 86 mL/min (50-200); Estimated Glomerular Filt Rate 59 ml/min (>60); GFR (African American) 72 ML/MIN (>60)
--- NOTE | 2022-02-14 03:06 | PC.NURSE ---
patient given a warm blanket and medication to treat pain. Patient asked that the room lights be turned out so he could sleep while awaiting his test results. Patient is currently resting in bed.
[2022-02-14 03:07] LABS: Alanine Aminotransferase 29 U/L (12-78); Albumin Level 4.3 g/dl (3.5-5.0); Albumin/Globulin Ratio 1.1 (1.1-1.8); Alkaline Phosphatase 125 U/L (38-126); Aspartate Amino Transferase 33 U/L (17-59); Bilirubin,Total 0.6 mg/dl (0.2-1.3); Calcium 10.7 mg/dl (8.4-10.2); Carbon Dioxide 28 mmol/L (22.0-30.0); Creatine Kinase 81 U/L (55-170); Glucose 149 mg/dl (74-100); Magnesium 1.9 mg/dl (1.6-2.3); Phosphorous 2.9 mg/dl (2.5-4.5); Total Protein,Serum 8.3 g/dl (6.3-8.2)
[2022-02-14 03:14] LABS: Hypochromasia 2+; Lymphocytes % 5 % (10-50); Macrocytosis 2+; Monocytes % 2 % (2-9); Neutrophils % 84 % (42-76); Platelet Estimate Normal; Total Cells Counted 100
[2022-02-14 03:18] LABS: Coronavirus 19, PCR Not Detected (NotDetected); Influenza A, PCR Not Detected (NotDetected); Influenza B, PCR Not Detected (NotDetected)
[2022-02-14 03:22] LABS: Microscopic, Urine URINE MICROSCOPIC (MICROSCOPIC)
[2022-02-14 03:23] LABS: Appearance,Urine CLEAR (Clear); Bilirubin,Urine Negative (Negative); Blood, Urine Negative (Negative); Color,Urine YELLOW (Yellow); Glucose,Urine (UA) Negative (Negative); Ketones,Urine Negative (Negative); Leukocyte Esterase,Urine Negative (Negative); Nitrate,Urine Negative (Negative); Protein,Urine 1+ (Negative); Specific Gravity, Urine 1.015 (1.005-1.030)
[2022-02-14 03:38] LABS: Thyroid Stimulating Hormone 0.12 uIU/mL (0.465-4.68)
--- NOTE | 2022-02-14 03:58 | CT_ITS ---
PROCEDURE INFORMATION: Exam: CT Head Without Contrast Exam date and time: 02/14/2022 5:27 AM Age: 72 years old Clinical indication: Altered mental status/memory loss and weakness, extremity; Bilateral; Additional info: Confusion TECHNIQUE: Imaging protocol: Computed tomography of the head without contrast. Radiation optimization: All CT scans at this facility use at least one of these dose optimization techniques: automated exposure control; mA and/or kV adjustment per patient size (includes targeted exams where dose is matched to clinical indication); or iterative reconstruction. COMPARISON: CT HEAD/BRAIN WO CON 11/23/2020 8:43 PM FINDINGS: Brain: Patchy confluent areas of low attenuation are noted in the supratentorial white matter. Age related microvascular/ischemic disease may be considered. Atrophic changes. Cerebral ventricles: No hydrocephalus. Paranasal sinuses: Visualized sinuses are unremarkable. No fluid levels. Mastoid air cells: Visualized mastoid air cells are well aerated. Bones/joints: Unremarkable. No acute fracture. Soft tissues: Unremarkable. IMPRESSION: 1. Presumed microvascular changes in the supratentorial white matter. MRI may be helpful in excluding occult acute infarction if clinically warranted. 2. Atrophic changes. 3. No hemorrhage or extra-axial collection.
--- NOTE | 2022-02-14 03:58 | CT_ITS ---
PROCEDURE INFORMATION: Exam: CT Lumbar Spine Without Contrast Exam date and time: 02/14/2022 5:29 AM Age: 72 years old Clinical indication: Weakness; Additional info: History of ddd, bilateral lower extremity weakness TECHNIQUE: Imaging protocol: Computed tomography of the lumbar spine without contrast. Radiation optimization: All CT scans at this facility use at least one of these dose optimization techniques: automated exposure control; mA and/or kV adjustment per patient size (includes targeted exams where dose is matched to clinical indication); or iterative reconstruction. COMPARISON: MR LUMBAR SPINE WO/W CON 11/20/2021 2:27 PM FINDINGS: Bones/joints: There are 5 lumbar type vertebrae. Vertebral body heights are normal throughout. There is mild degenerative disc disease in the lower thoracic spine without spinal canal stenosis. At L1-L2, there is advanced degenerative disc disease with mild spinal stenosis. Mild right neural foraminal stenosis is noted. There is diffuse disc bulge at L2-L3 and mild bilateral facet arthropathy resulting in mild canal stenosis. Mild disc bulge noted at L3-L4 without significant spinal stenosis. There has been posterior element fusion procedure and interbody fusion at L4-L5. Laminectomy defect is noted at L4 and L5. Mild facet arthropathy and degenerative disc disease noted at L5-S1 without canal or foraminal stenosis. There is ankylosis of the left sacroiliac joint. No acute fracture. Kidneys and ureters: There appears to be a mass arising from the lower pole of the left kidney with attenuation coefficient of 27 Hounsfield units. This has been previously described and was present on a prior MR. Stomach and bowel: There is extensive sigmoid diverticulosis without evidence of acute diverticulitis. Soft tissues: Unremarkable. IMPRESSION: Exam demonstrates spinal stenosis at L1-L2, similar to prior MR. Minimal spinal canal narrowing is noted at L2-L3. There has been prior lumbar fusion but there is no evidence of hardware failure.
[2022-02-14 04:45] LABS: Free T4 (Free Thyroxine) 1.79 ng/dl (0.78-2.19)
[2022-02-14 05:19] LABS: Vitamin B12 661 pg/mL (239-931)
--- NOTE | 2022-02-14 05:41 | PC.NURSE ---
Pt continues to rest. No needs or complaints voiced at this time.
--- NOTE | 2022-02-14 06:59 | PC.NURSE ---
Pt resting in bed. No needs or complaints voiced. Call light within reach.
--- NOTE | 2022-02-14 07:35 | PC.NURSE ---
pt ambulated to the restroom. cardiac tray ordered for pt
--- NOTE | 2022-02-14 08:34 | PC.NURSE ---
updated on pt care and that pt is ready to go home.
--- NOTE | 2022-02-14 09:22 | PC.NURSE ---
pt given glass of water
== END 2022-02-14 10:32 | disposition home or self-care (01) ==
PROVIDERS: Emergency Provider Student in an Organized Health Care Education/Training Program
DX: M54.9 Dorsalgia, unspecified (principal); D53.9 Nutritional anemia, unspecified; R53.1 Weakness; R25.1 Tremor, unspecified; E83.52 Hypercalcemia; R41.0 Disorientation, unspecified; Z20.822 Contact with and (suspected) exposure to COVID-19; D72.829 Elevated white blood cell count, unspecified; I11.0 Hypertensive heart disease with heart failure; I50.9 Heart failure, unspecified; I25.10 Atherosclerotic heart disease of native coronary artery without angina pectoris; K21.9 Gastro-esophageal reflux disease without esophagitis; E78.5 Hyperlipidemia, unspecified; G89.29 Other chronic pain; J44.9 Chronic obstructive pulmonary disease, unspecified; Z79.51 Long term (current) use of inhaled steroids; Z79.899 Other long term (current) drug therapy; Z88.0 Allergy status to penicillin; Z95.5 Presence of coronary angioplasty implant and graft; Z87.891 Personal history of nicotine dependence; Z82.49 Family history of ischemic heart disease and other diseases of the circulatory system; Z83.438 Family history of other disorder of lipoprotein metabolism and other lipidemia
CPT/HCPCS: 70450; 71045; 72131; 80053; 81001; 82550; 82607; 82746; 83735; 84100; 84439; 84443; 85007; 85025; 93005; 99285; C9803; U0003; U0005

== ENCOUNTER → 2022-02-22 10:27 | Outpatient (CLI) | payer MEDICARE, SELFPAY ==
--- NOTE | 2022-02-22 10:27 | FL_ITS ---
FINAL REPORT CLINICAL HISTORY: Dysphagia, FT- 1:05 FINDINGS: MODIFIED BARIUM SWALLOW HISTORY: Dysphagia. FINDINGS: Fluoroscopy was provided for the speech pathologist to evaluate the swallowing mechanism. The patient was given several different consistencies of barium while the swallow was visualized fluoroscopically. The report of the speech pathologist should be consulted prior to making dietary decisions. FLUOROSCOPY TIME: 1 minute 5 seconds. TOTAL NUMBER OF IMAGES: 7 cine runs IMPRESSION: Modified barium swallow under fluoroscopic guidance. Please see speech pathologist's report for further details and dietary recommendations. Reviewed, Interpreted and Dictated by Steve Gamino MD Transcribed by Isaura James PA-C Authenticated and [facility]
--- NOTE | 2022-02-22 11:29 | HMH.SLMBS2 ---
Speech & Language Evaluation Speech/Language Mod Barium Swallow Start: 02/22/22 11:14 Freq: once Status: Complete Protocol: Document 02/22/22 11:14 NATHALY (Rec: 02/22/22 11:29 NATHALY [id number]) General Information General Current Food Consistency Regular,Thin Liquids Dentition Poor Dentition Oxygen Status Room Air Facial Symmetry Symmetrical Patient Orientation Person,Place,Time,Situation Ability to Follow Directions Excellent Communication Ability No Impairment MBS Recommendations Diet Dietary Recommendations Regular,Thin Liquids Treatment/Strategies Strategy/Precaution Recommend Sitting Upright (90 deg),Small Bites and Sips,Alternate Liquids/Solids Referrals/Other Recommended Referrals GI Consult Mod Barium Swallow Impressions Summary and Impressions Oral Phase Impression Minimal Impairment Oral Phase Summary Minimal oral residue that eventually cleared with subsequent swallow. Minimally prolonged mastication time 2' poor dentition. Pharyngeal Phase Impression Minimal Impairment Pharyngeal Phase Summary No aspiration or penetration noted during the study. Mild BOT residue which cleared independently with subsequent swallow. No structural anomalies or weakness noted in the pharynx. Speech/Language MBS Assessment/Goals/Plan Assessment Date of Evaluation: 02/22/22 Evaluation Type Initial Certification Assessment/Problems Dysphagia per MD order Does Patient Qualify for Service No Qualify/Failure Comment Based on the results of the modified barium swallow study, pt does not require further skilled ST services at this time. Recommendations PHYSICIAN CERTIFICATION: The specified therapy services are required, authorized, and reviewed every 30 days. Diet Recommendations Normal Liquid Type Recommendations Normal/Thin SL Swallow Guidelines Alt bite w/sip thru meal,Eat at slow rate,Reflux precautions Dysphagia Swallow Precautions/Strategies Sitting Upright (90 deg),Small Bites and Sips,Alternate Liquids/Solids Place Food on Either side of Mouth Plan Pt/Guardian verbally ack understanding Yes of dx/prognosis/goals Pt/Guardian
== END ==
PROVIDERS: PCP Internal Medicine Adolescent Medicine; Visit Provider Specialist
DX: R13.10 Dysphagia, unspecified (principal)
CPT/HCPCS: 70371; 92611; G0399

== ENCOUNTER → 2022-04-29 11:49 | Outpatient (CLI) | payer MEDICARE, SELFPAY ==
[2022-04-29 12:59] LABS: Basophils % 0.7 % (0.1-2.0); Eosinophils # 0.1 K/mm3 (0.0-0.4); Eosinophils % 1.7 % (0.1-12.0); Hematocrit 40.7 % (42.0-52.0); Hemoglobin 12.3 g/dL (14.1-18.0); Lymphocytes # 1.5 K/mm3 (0.7-4.5); Mean Corpuscular HGB Conc 30.2 g/dL (31.8-35.4); Mean Corpuscular Hemoglobin 31.1 pg (27.0-31.2); Mean Corpuscular Volume 103.1 fl (80-94); Mean Platelet Volume 8.9 fl (7.4-10.4); Monocytes # 0.4 K/mm3 (0.1-1.0); Monocytes % 6.5 % (1.7-9.3); Neutrophils # 3.7 K/mm3 (1.8-7.8); Neutrophils % 65.1 % (37.0-80.0); Platelet Count 188 K/mm3 (142-424); Red Blood Count 3.94 M/mm3 (4.60-6.20); Red Cell Distribution Width 16.8 % (11.5-17.5); White Blood Count 5.6 K/mm3 (4.8-10.8)
[2022-04-29 13:24] LABS: Alanine Aminotransferase 23 U/L (12-78); Albumin/Globulin Ratio 1.1 (1.1-1.8); Alkaline Phosphatase 96 U/L (38-126); Anion Gap 12.5 mEq/L (5-15); Aspartate Amino Transferase 27 U/L (17-59); Bilirubin,Total 0.4 mg/dl (0.2-1.3); Blood Urea Nitrogen 27 mg/dl (9-20); Calcium 9.7 mg/dl (8.4-10.2); Carbon Dioxide 28 mmol/L (22.0-30.0); Chloride 105 mmol/L (98-107); Chol/HDL Ratio 2.5 (1-3.5); Cholesterol 125 mg/dl (140-200); Estimated Glomerular Filt Rate 54 ml/min (>60); GFR (African American) 65 ML/MIN (>60); Globulin 3.5 g/dL (1.3-3.2); Glucose 103 mg/dl (74-100); HDL Cholesterol 50 mg/dl (40-60); Potassium 4.5 mmoL/L (3.5-5.1); Sodium 141 mmol/L (136-145); Total Protein,Serum 7.5 g/dl (6.3-8.2); Triglycerides 116 mg/dl (30-150); Uric Acid 4.3 mg/dl (3.5-8.5); VLDL Cholesterol 23 mg/dL (0-40)
[2022-04-29 13:35] LABS: Direct LDL Cholesterol 47.27 mg/dL (100-129)
[2022-04-29 13:55] LABS: Thyroid Stimulating Hormone 0.83 uIU/mL (0.465-4.68)
== END ==
PROVIDERS: PCP Internal Medicine Adolescent Medicine; Visit Provider Internal Medicine Adolescent Medicine
DX: I48.91 Unspecified atrial fibrillation (principal); I10 Essential (primary) hypertension; E78.5 Hyperlipidemia, unspecified; M10.9 Gout, unspecified
CPT/HCPCS: 36415; 80053; 80061; 84443; 84550; 85025

== ENCOUNTER → 2022-05-26 14:37 | Outpatient (CLI) | payer MEDICARE, SELFPAY ==
--- NOTE | 2022-05-26 14:38 | CA_ITS ---
APPROVED REPORT EXAM: Comprehensive 2D, Doppler, and color-flow Echocardiogram Hasher Machine Operator: Jinny Pavon RT(R) Ht: 5 ft 10 in Wt: 245lbs BSA: 2.28 BP: 150/85 mmHg Indications: , HTN, ex smoker, TRINIDAD, obesity, hyperlipidemia, pre op clearance, CHF, DD, CAD, JAZMINE, AFIB 2D Dimensions Aortic Root 2.09 cm M: 3.1 - 3.7 LVOT 2.23 cm (M/F) 1.5-2.5 M-Mode Dimensions RVDd 2.91 cm (0.9-2.6) LA Diam 3.90 cm (1.9-4.0) LVDd 5.77 cm (3.5-5.7) Ao Diam 1.79 cm (2.0-3.7) LVDs 3.98 cm (3.5-5.7) IVSd 0.89 cm (0.6-1.1) PWd 0.80 cm (0.6-1.1) EF (Teich) 58.00% FS 31.00% EDV (Teich) 164.60 mL ESV (Teich) 69.20 mL LV Diastology E Decel Time 207.00 (160-240 msec) E/A Ratio 0.7 MED E' 5.00 (< 7 cm/sec) E'/MED E' Ratio 15.20 (>14) LAT E' 8.10 (<10 cm/sec) E/LAT E' Ratio 9.38 (>14) Aortic Valve LVOT Max 79.00 (70-110 cm/s) LVOT VTI 16.32 cm AoV Peak Tonny. 232.00 (50-130 cm/s) AO Peak GR. 21.60 mmHg AO Mean GR. 10.60 (<5 mmHg) AO VTI 45.87 (18-25 cm) BROOKE (VTI) 1.39 (2.5-4.5 cm2) Mitral Valve MV E Max Tonny. 76.00 (40-130 cm/s) MV A Velocity 108.00 (40-130 cm/s) E/A Ratio 0.70 MV Decel. Time 207.00 (160-240 ms) MV PHT 61.00 ms Left Ventricle Left atrium is mildly enlarged, left ventricle is normal size mild concentric left ventricular hypertrophy, estimated ejection fraction 55% with no regional wall motion abnormality, grade 1 diastolic dysfunction seen without tissue Doppler evidence of late left atrial pressure. Right Ventricle Right atrium and right ventricular normal size and contractility. Aortic Valve Aortic valve is thickened and calcified, mean gradient across aortic valve is 12 mmHg, aortic valve area is 1.53 cm??? represents mild aortic stenosis, there is no aortic insufficiency. Mitral Valve Mitral valve is grossly normal, there is trace mitral regurgitation. Tricuspid Valve Tricuspid valve grossly normal, there is trace tricuspid regurgitation, tricuspid regurgitation jet velocity is inadequate for calculation of the right ventricular systolic pressure. Pulmonic Valve Pulmonic valve is poorly visualized. Great Vessels Aortic root is normal size. Inferior vena cava is poorly visualized. Pericardium No significant pericardial effusion noted. Conclusion 1. Mildly in the left atrium, normal left ventricular size, mild concentric left ventricular hypertrophy, estimated ejection fraction 55% with no regional wall motion abnormality, grade 1 diastolic dysfunction seen without tissue Doppler evidence of raise left atrial pressure. 2. Thickened and calcified aortic valve with mild aortic stenosis, aortic valve area is 1.53 cm???, there is no aortic insufficiency. 3. Trace mitral and tricuspid regurgitation. 4. No significant pericardial effusion noted. 5. Inferior vena cava is poorly visualized. Electronically signed by : Darinel Asencio MD 05/26/2022 21:36:55
== END ==
PROVIDERS: PCP Internal Medicine Adolescent Medicine; Visit Provider Physician Assistant
DX: R06.09 Other forms of dyspnea; I48.0 Paroxysmal atrial fibrillation; I35.0 Nonrheumatic aortic (valve) stenosis; I11.0 Hypertensive heart disease with heart failure; I50.20 Unspecified systolic (congestive) heart failure; E78.2 Mixed hyperlipidemia; I70.1 Atherosclerosis of renal artery; J44.9 Chronic obstructive pulmonary disease, unspecified; G47.33 Obstructive sleep apnea (adult) (pediatric); E66.9 Obesity, unspecified; Z68.37 Body mass index [BMI] 37.0-37.9, adult
CPT/HCPCS: 93306

== ENCOUNTER → 2022-06-23 14:38 | Outpatient (CLI) | payer MEDICARE, SELFPAY ==
[2022-06-23 15:47] LABS: Chloride 106 mmol/L (98-107); Potassium 4.4 mmoL/L (3.5-5.1); Sodium 141 mmol/L (136-145)
[2022-06-23 15:50] LABS: Anion Gap 10.4 mEq/L (5-15); Blood Urea Nitrogen 27 mg/dl (9-20); Carbon Dioxide 29 mmol/L (22.0-30.0); Estimated Glomerular Filt Rate 54 ml/min (>60); GFR (African American) 65 ML/MIN (>60)
[2022-06-23 15:51] LABS: Calcium 9.5 mg/dl (8.4-10.2); Glucose 101 mg/dl (74-100)
[2022-06-25 14:21] LABS: Calcium, Ionized 5.5 mg/dL (4.5-5.6)
[2022-07-13 04:53] LABS: PTH Related Peptide < 2.0
== END ==
PROVIDERS: PCP Internal Medicine Adolescent Medicine; Visit Provider Student in an Organized Health Care Education/Training Program
DX: E21.3 Hyperparathyroidism, unspecified (principal)
CPT/HCPCS: 36415; 80048; 82330; 82397

== ENCOUNTER → 2022-11-02 14:58 | Outpatient (CLI) | payer MEDICARE, SELFPAY ==
--- NOTE | 2022-11-02 14:59 | CT_ITS ---
FINAL REPORT CLINICAL HISTORY: lung cancer screening, former smoker, quit 12 yrs ago, smoked 1 1/2 pks per day x 30 yrs copd, cad COMPARISON: 12/22/2020 FINDINGS: CT CHEST LOW DOSE SCREENING DOSE: CTDIvol: 2.90 mGy, DLP: 121.16 mGy*cm TECHNIQUE: Axial CT without IV contrast administration using low dose protocol No acute lung disease is present . There is scattered scar or atelectasis. No pulmonary lesions are seen suspicious for neoplasm. No pleural or pericardial effusion is seen . No adenopathy or mass lesion is present . IMPRESSION: 1. No evidence of lung cancer LUNG RADS CATEGORY 1 RECOMMENDATION: 12 month LDCT follow up Reviewed, Interpreted and Dictated by Alexandro Peng MD Transcribed by Mercedes Restrepo Authenticated and [facility]
== END ==
PROVIDERS: PCP Internal Medicine Adolescent Medicine; Visit Provider Internal Medicine Pulmonary Disease
DX: Z87.891 Personal history of nicotine dependence (principal); Z12.2 Encounter for screening for malignant neoplasm of respiratory organs
CPT/HCPCS: 71271

== ENCOUNTER → 2022-11-24 14:24 | Outpatient (CLI) | payer MEDICARE, SELFPAY ==
--- NOTE | 2022-11-24 14:28 | XR_ITS ---
FINAL REPORT CLINICAL HISTORY: rales shortness of breath, cough/congestion, former smoker, copd, asthma COMPARISON: 02/14/2022 FINDINGS: Two views of the chest were obtained. The heart size and pulmonary vascularity are within normal limits. The mediastinum is normal. There is mild bibasilar atelectasis or scar. There is no pneumothorax. There are degenerative changes in the thoracic spine. IMPRESSION: Mild bibasilar atelectasis or scar. Reviewed, Interpreted and Dictated by Jassi Pretty III, MD Transcribed by Linette Arellano Authenticated and [facility]
== END ==
PROVIDERS: PCP Internal Medicine Adolescent Medicine; Visit Provider Nurse Practitioner
DX: I35.0 Nonrheumatic aortic (valve) stenosis (principal); R06.00 Dyspnea, unspecified; R09.89 Other specified symptoms and signs involving the circulatory and respiratory systems
CPT/HCPCS: 71046

== ENCOUNTER → 2023-01-10 12:42 | Outpatient (CLI) | payer MEDICARE, SELFPAY ==
--- NOTE | 2023-01-10 12:42 | US_ITS ---
FINAL REPORT TECHNIQUE: Real-time grayscale and color ultrasound of the thyroid was performed. CLINICAL HISTORY: thyroid nodules follow-up COMPARISON: 11/25/2021 FINDINGS: The thyroid gland is enlarged and measures 55 mm on the right and 62 mm on the left. The isthmus measures 7 mm. The gland is lobulated and heterogeneous with multiple nodules. Nodules: Right 20 x 19 x 11 mm spongiform TI-RADS 1 nodule. Right 14 x 10 x 15 mm mostly solid isoechoic TR 3 nodule. Left 47 x 31 x 40 mm, was 34 x 32 mm, solid isoechoic TR 3 nodule presumed to represent previously biopsied nodule. IMPRESSION: Enlarged thyroid gland with multiple nodules. Interval increase in presumed previously biopsied left nodule. Reviewed, Interpreted and Dictated by Jassi Pretty III, MD Transcribed by Linette Arellano Authenticated and [facility]
== END ==
PROVIDERS: PCP Internal Medicine Adolescent Medicine; Visit Provider Student in an Organized Health Care Education/Training Program
DX: E04.2 Nontoxic multinodular goiter (principal)
CPT/HCPCS: 76536

== ENCOUNTER → 2023-02-15 07:28 | Outpatient (CLI) | payer MEDICARE, SELFPAY ==
--- NOTE | 2023-02-15 07:29 | US_ITS ---
FINAL REPORT CLINICAL HISTORY: E04.2 - Nontoxic multinodular goiter fna maciel milligan-- FINDINGS: Ultrasound guided thyroid biopsy. HISTORY: .Left thyroid nodule. Attending radiologist: Dr. Lozoya [employer] Parks Recreation Coordinator: Maciel Milligan PA-C PROCEDURE: After informed consent was obtained and a time-out was performed, the patient was prepped and draped in usual sterile fashion over the left neck. Utilizing local anesthesia and sterile technique with a 25-gauge needle, access to lesion was obtained. A total of 6 passes were made under direct ultrasound guidance. The patient received no conscious sedation. The patient tolerated procedure well and left the department in good condition. IMPRESSION: Status post ultrasound guided biopsy of thyroid without immediate complication. Films reviewed , interpreted and dictated by Dr. Mel Lozoya. Transcribed by Maciel Milligan PA-C. Reviewed, Interpreted and Dictated by Mel Lozoya MD Transcribed by MOISES Farias Authenticated and [facility]
== END ==
PROVIDERS: PCP Internal Medicine Adolescent Medicine; Visit Provider Student in an Organized Health Care Education/Training Program
DX: E04.2 Nontoxic multinodular goiter (principal); E21.3 Hyperparathyroidism, unspecified
CPT/HCPCS: 10005; 76536; 88173; 88305

== ENCOUNTER 2023-03-08 11:00 | Emergency (ER) | payer MEDICARE, SELFPAY ==
[2023-03-08 12:00] VITALS: BP 104/65; PULSE 78; RESP 18; TEMP 37.4; O2SAT 97; BMI 36.5
--- NOTE | 2023-03-08 12:03 | EXP.UTC ---
Discharge Plan Disposition Patient Disposition: Home, Self-Care Condition: Good Prescriptions Prescriptions: New benzonatate [benzonatate] 100 mg capsule 100 mg PO TIDP PRN (Reason: Cough) Qty: 30 0RF methylprednisolone 4 mg Tablets,Dose Pack 4 mg PO DIRECTED Qty: 21 0RF cefdinir 300 mg capsule 300 mg PO BID Qty: 20 0RF No Action Align 4 mg capsule 4 mg PO DAILY amiodarone 100 mg tablet 200 mg PO DAILY Rx Instructions: half tablet daily ipratropium-albuterol 0.5 mg-3 mg(2.5 mg base)/3 mL solution for nebulization 3 ml inhalation QID PRN (Reason: shortness of breath or wheezing) 90 Days Qty: 270 3RF albuterol sulfate [ProAir HFA] 90 mcg/actuation HFA aerosol inhaler 2 puff inhalation QID PRN (Reason: shortness of breath or wheezing) 90 Days Qty: 8.5 3RF multivitamin Tablet 1 tab PO DAILY Entresto 49-51 mg tablet 1 tab PO BID Xarelto 20 mg tablet 20 mg PO DAILY Qty: 90 3RF Rx Instructions: must administer with evening meal fluticasone furoate-vilanterol [Breo Ellipta] 100-25 mcg/dose blister with device 1 inh inhalation DAILY Qty: 90 2RF amiloride 5 mg tablet See Rx Instructions .ROUTE .COMPLEX Qty: 90 3RF Dose Instruction: TAKE 1 TABLET EVERY DAY FOR FLUID Rx Instructions: TAKE 1 TABLET EVERY DAY FOR FLUID atorvastatin 40 mg tablet 40 mg PO HS Qty: 90 3RF carvedilol 12.5 mg tablet 12.5 mg PO BID Qty: 180 3RF famotidine 20 MG tablet 20 mg PO BID allopurinol 300 MG tablet 300 mg PO DAILY sucralfate 1 GM tablet 1 gm PO QID furosemide 40 MG tablet 40 mg PO DAILY tamsulosin 0.4 MG capsule 0.8 mg PO HS Referrals Follow up/Referrals: Henrry Vegas MD [Primary Care Provider] - See instructions Activity Restrictions/Add. Instructions Additional Instructions/Restrictions: Drink plenty of fluids. Take tylenol or ibuprofen for pain or fever. Take the medications as directed. Follow up with your regular doctor. GO TO THE ER FOR ANY WORSENING SYMPTOMS Clinical Impressions Clinical Impression: Acute viral syndrome Instructions Patient Instructions: DI for Viral Syndrome Discharge ED Provider: Kurt Todd [facility] General Stated complaint: body aches, cough, fever Time Seen by Provider: 03/08/23 12:03 History of Present Illness Provider Complaint: He states that for the past 2 days he has had fever, chills, and body aches. Related Data Home Medications Medication Instructions Recorded Confirmed allopurinol 300 mg tablet 300 mg PO DAILY gout 02/10/21 01/25/23 famotidine 20 mg tablet 20 mg PO BID GERD 02/10/21 01/25/23 sucralfate 1 gram tablet 1 gm PO QID acid reflux 02/10/21 01/25/23 furosemide 40 mg tablet 40 mg PO DAILY Fluid 02/11/21 01/25/23 tamsulosin 0.4 mg capsule 0.8 mg PO HS prostate 02/11/21 01/25/23 multivitamin 1 tab PO DAILY 05/10/22 01/25/23 sacubitril 49 mg-valsartan 51 mg 1 tab PO BID 05/10/22 01/25/23 tablet (Entresto) Bifidobacterium infantis 4 mg 4 mg PO DAILY 05/26/22 01/25/23 capsule (Align) amiodarone 100 mg tablet 200 mg PO DAILY 12/22/22 01/25/23 Previous Rx's Medication Instructions Recorded atorvastatin 40 mg tablet 40 mg PO HS High cholesterol #90 01/09/21 tabs carvedilol 12.5 mg tablet 12.5 mg PO BID High blood pressure 01/09/21 #180 tabs rivaroxaban 20 mg tablet (Xarelto) 20 mg PO DAILY #90 tabs 05/04/22 albuterol sulfate 90 mcg/actuation 2 puff inhalation QID PRN 12/22/22 aerosol inhaler (ProAir HFA) shortness of breath or wheezing 90 days #8.5 grams ipratropium 0.5 mg-albuterol 3 mg 3 ml inhalation QID PRN shortness 12/22/22 (2.5 mg base)/3 mL nebulization of breath or wheezing 90 days #270 soln mL fluticasone furoate 100 1 inh inhalation DAILY #90 ea 02/17/23 mcg-vilanterol 25 mcg/dose inhalation powder (Breo Ellipta) amiloride 5 mg tablet See Rx Instructions .Route 02/21/23 .COMPLE
[2023-03-08 12:13] LABS: UTC Influenza A Antigen Negative (Negative); UTC Influenza B Antigen Negative (Negative)
[2023-03-08 12:42] LABS: Adenovirus,PCR Not Detected (NotDetected); Coronavirus 229E Not Detected (NotDetected); Coronavirus NL63 Not Detected (NotDetected); Coronavirus OC43 Not Detected (NotDetected); Coronovirus HKU1,PCR Not Detected (NotDetected); Human Metapneumovirus Not Detected (NotDetected); Influenza A, PCR Not Detected (NotDetected); Influenza AH1, 2009 Not Detected (NotDetected); Influenza AH1, PCR Not Detected (NotDetected); Influenza AH3,PCR Not Detected (NotDetected); Influenza B, PCR Not Detected (NotDetected); Parainfluenza 1, PCR Not Detected (NotDetected); Parainfluenza 2, PCR Not Detected (NotDetected); Parainfluenza 3, PCR Not Detected (NotDetected); Parainfluenza 4, PCR Not Detected (NotDetected); Respiratory Syncytial Virus Not Detected (NotDetected); Rhinovirus/Enterovirus Not Detected (NotDetected)
[2023-03-08 12:43] VITALS: BP 104/65; PULSE 78; RESP 18; TEMP 37.4; O2SAT 97
[2023-03-08 15:06] LABS: Coronavirus 19, PCR Detected (NotDetected)
== END 2023-03-08 12:43 | disposition home or self-care (01) ==
PROVIDERS: Emergency Provider Nurse Practitioner Family; PCP Internal Medicine Adolescent Medicine
DX: U07.1 COVID-19 (principal); R50.9 Fever, unspecified; R05.9 Cough, unspecified; M79.18 Myalgia, other site; J44.9 Chronic obstructive pulmonary disease, unspecified; I35.0 Nonrheumatic aortic (valve) stenosis; Z87.891 Personal history of nicotine dependence
CPT/HCPCS: 87632; 87635; 87804; 99204; 99212; G0463

== ENCOUNTER 2023-05-26 11:55 | Outpatient (CLI) | payer MEDICARE, SELFPAY ==
[2023-05-26 12:33] LABS: Basophils % 0.4 % (0.1-2.0); Eosinophils # 0.1 K/mm3 (0.0-0.4); Eosinophils % 1.9 % (0.1-12.0); Hematocrit 37.4 % (42.0-52.0); Hemoglobin 11.8 g/dL (14.1-18.0); Lymphocytes # 1.7 K/mm3 (0.7-4.5); Lymphocytes % 30.1 % (10-50); Mean Corpuscular HGB Conc 31.5 g/dL (31.8-35.4); Mean Corpuscular Hemoglobin 31.4 pg (27.0-31.2); Mean Corpuscular Volume 99.8 fl (80-94); Mean Platelet Volume 8.8 fl (7.4-10.4); Monocytes # 0.4 K/mm3 (0.1-1.0); Monocytes % 6.9 % (1.7-9.3); Neutrophils # 3.5 K/mm3 (1.8-7.8); Neutrophils % 60.7 % (37.0-80.0); Platelet Count 195 K/mm3 (142-424); Red Blood Count 3.74 M/mm3 (4.60-6.20); Red Cell Distribution Width 18.2 % (11.5-17.5); White Blood Count 5.7 K/mm3 (4.8-10.8)
[2023-05-26 13:01] LABS: Alanine Aminotransferase 18 U/L (12-78); Albumin Level 3.9 g/dl (3.5-5.0); Alkaline Phosphatase 119 U/L (38-126); Anion Gap 12.4 mEq/L (5-15); Aspartate Amino Transferase 29 U/L (17-59); Bilirubin,Direct 0.3 mg/dl (0.0-0.4); Bilirubin,Indirect 0.2 mg/dL (0.0-0.9); Bilirubin,Total 0.5 mg/dl (0.2-1.3); Bilirubin,Unconjugated 0.1 mg/dL (0.0-1.1); Blood Urea Nitrogen 22 mg/dl (9-20); Calcium 10.3 mg/dl (8.4-10.2); Carbon Dioxide 25 mmol/L (22.0-30.0); Chloride 110 mmol/L (98-107); Chol/HDL Ratio 3.2 (1-3.5); Cholesterol 142 mg/dl (140-200); Estimated Glomerular Filt Rate 73 ml/min (>60); GFR (African American) 88 ML/MIN (>60); Glucose 94 mg/dl (74-100); HDL Cholesterol 45 mg/dl (40-60); Magnesium 2.1 mg/dl (1.6-2.3); Potassium 4.4 mmoL/L (3.5-5.1); Sodium 143 mmol/L (136-145); Total Protein,Serum 7.7 g/dl (6.3-8.2); Triglycerides 186 mg/dl (30-150); VLDL Cholesterol 37 mg/dL (0-40)
[2023-05-26 13:12] LABS: Direct LDL Cholesterol 59.66 mg/dL (100-129)
[2023-05-26 13:19] LABS: Free T4 (Free Thyroxine) 1.42 ng/dl (0.78-2.19)
[2023-05-26 13:34] LABS: Thyroid Stimulating Hormone 0.48 uIU/mL (0.465-4.68)
== END 2023-05-26 23:59 ==
LOC: LAB 11:56
PROVIDERS: PCP Internal Medicine Adolescent Medicine; Visit Provider Nurse Practitioner Family
DX: R06.00 Dyspnea, unspecified (principal); E78.5 Hyperlipidemia, unspecified; G47.33 Obstructive sleep apnea (adult) (pediatric); I10 Essential (primary) hypertension; I35.0 Nonrheumatic aortic (valve) stenosis; I48.0 Paroxysmal atrial fibrillation; I48.91 Unspecified atrial fibrillation; I50.20 Unspecified systolic (congestive) heart failure; I51.89 Other ill-defined heart diseases; I70.1 Atherosclerosis of renal artery; J44.9 Chronic obstructive pulmonary disease, unspecified; R60.0 Localized edema
CPT/HCPCS: 36415; 80048; 80061; 80076; 83735; 84439; 84443; 85025

== ENCOUNTER 2023-06-02 11:36 | Outpatient (CLI) | payer MEDICARE, SELFPAY ==
[2023-06-02 12:02] LABS: Basophils % 0.3 % (0.1-2.0); Eosinophils # 0.1 K/mm3 (0.0-0.4); Hematocrit 37.9 % (42.0-52.0); Hemoglobin 11.8 g/dL (14.1-18.0); Lymphocytes # 1.6 K/mm3 (0.7-4.5); Lymphocytes % 28.2 % (10-50); Mean Corpuscular HGB Conc 31.1 g/dL (31.8-35.4); Mean Corpuscular Hemoglobin 31.5 pg (27.0-31.2); Mean Corpuscular Volume 101.1 fl (80-94); Mean Platelet Volume 8.9 fl (7.4-10.4); Monocytes # 0.4 K/mm3 (0.1-1.0); Monocytes % 7.2 % (1.7-9.3); Neutrophils # 3.5 K/mm3 (1.8-7.8); Neutrophils % 62.3 % (37.0-80.0); Platelet Count 207 K/mm3 (142-424); Red Blood Count 3.75 M/mm3 (4.60-6.20); White Blood Count 5.6 K/mm3 (4.8-10.8)
[2023-06-02 12:37] LABS: Alanine Aminotransferase 20 U/L (12-78); Albumin Level 3.8 g/dl (3.5-5.0); Alkaline Phosphatase 133 U/L (38-126); Anion Gap 10.7 mEq/L (5-15); Aspartate Amino Transferase 23 U/L (17-59); Bilirubin,Direct 0.2 mg/dl (0.0-0.4); Bilirubin,Indirect 0.3 mg/dL (0.0-0.9); Bilirubin,Total 0.5 mg/dl (0.2-1.3); Bilirubin,Unconjugated 0.3 mg/dL (0.0-1.1); Blood Urea Nitrogen 18 mg/dl (9-20); Calcium 9.9 mg/dl (8.4-10.2); Carbon Dioxide 29 mmol/L (22.0-30.0); Chloride 106 mmol/L (98-107); Chol/HDL Ratio 3.1 (1-3.5); Cholesterol 132 mg/dl (140-200); Estimated Glomerular Filt Rate 65 ml/min (>60); GFR (African American) 79 ML/MIN (>60); Glucose 98 mg/dl (74-100); HDL Cholesterol 43 mg/dl (40-60); Potassium 3.7 mmoL/L (3.5-5.1); Sodium 142 mmol/L (136-145); Total Protein,Serum 7.3 g/dl (6.3-8.2); Triglycerides 146 mg/dl (30-150); VLDL Cholesterol 29 mg/dL (0-40)
[2023-06-02 12:48] LABS: Direct LDL Cholesterol 60.82 mg/dL (100-129)
[2023-06-02 12:54] LABS: Free T4 (Free Thyroxine) 1.57 ng/dl (0.78-2.19)
[2023-06-02 13:08] LABS: Thyroid Stimulating Hormone 0.43 uIU/mL (0.465-4.68)
== END 2023-06-02 23:59 ==
PROVIDERS: Physician Assistant; PCP Internal Medicine Adolescent Medicine; Visit Provider Nurse Practitioner Family
DX: E11.9 Type 2 diabetes mellitus without complications (principal); E66.9 Obesity, unspecified; E78.2 Mixed hyperlipidemia; G47.33 Obstructive sleep apnea (adult) (pediatric); I35.0 Nonrheumatic aortic (valve) stenosis; I70.1 Atherosclerosis of renal artery; J43.9 Emphysema, unspecified; R60.0 Localized edema; R06.00 Dyspnea, unspecified; K21.9 Gastro-esophageal reflux disease without esophagitis; I11.9 Hypertensive heart disease without heart failure; Z79.899 Other long term (current) drug therapy; Z68.37 Body mass index [BMI] 37.0-37.9, adult
CPT/HCPCS: 36415; 80048; 80061; 80076; 84439; 84443; 85025

== ENCOUNTER 2023-06-09 13:18 | Outpatient (CLI) | payer MEDICARE, SELFPAY ==
--- NOTE | 2023-06-09 13:21 | CA_ITS ---
APPROVED REPORT EXAM: Comprehensive 2D, Doppler, and color-flow Echocardiogram Welfare Supervisor: Jinny Pavon, RT(R) Ht: 5 ft 10 in Wt: 264lbs BSA: 2.35 BP: 126/72 mmHg Indications: SOB, , HTN, DD, CAD, AFIB, murmur, ex smoker, renal artery stenosis, JUJU 2D Dimensions Left Atrium 3.60 cm M: 3.0 - 4.0 EF AP4 6.90 % LVOT 2.15 cm (M/F) 1.5-2.5 GL Strain -1.2 % M-Mode Dimensions RVDd 2.84 cm (0.9-2.6) LVDd 5.14 cm (3.5-5.7) Ao Diam 2.42 cm (2.0-3.7) LVDs 3.72 cm (3.5-5.7) IVSd 0.93 cm (0.6-1.1) PWd 1.03 cm (0.6-1.1) EF (Teich) 53.30% FS 27.60% EDV (Teich) 126.10 mL ESV (Teich) 58.90 mL LV Diastology E Decel Time 165 (160-240 msec) E/A Ratio 0.9 MED E' 4.3 (>= 7 cm/sec) E'/MED E' Ratio 24.63 (<= 14) LAT E' 9.3 (>= 10 cm/sec) E/LAT E' Ratio 11.39 (<= 14) Aortic Valve LVOT Max 82.0 (70-110 cm/s) BROOKE Index 0.55 cm2/m2 LVOT VTI 17.81 cm AoV Peak Tonny. 233.0 (50-130 cm/s) AO Mean GR. 10.70 (<5 mmHg) AO VTI 49.6 (18-25 cm) BROOKE (VTI) 1.30 (2.5-4.5 cm2) Mitral Valve MV E Max Tonny. 106.0 (40-130 cm/s) MV A Velocity 113.0 (40-130 cm/s) E/A Ratio 0.94 MV Decel. Time 165 (160-240 ms) Left Ventricle The left ventricle is normal size. The left ventricular systolic function is normal. The left ventricular ejection fraction is within the normal range. There is increased LV wall thickness. There is normal LV segmental wall motion. Transmitral Doppler flow pattern suggests impaired LV relaxation. LVEF is 55%. Right Ventricle The right ventricle is normal size. The right ventricular systolic function is normal. Atria The left atrium size is normal. The right atrium size is normal. The interatrial septum is not well-visualized. Aortic Valve The aortic valve is moderately thickened. There is mild to moderate aortic stenosis. BROOKE by continuity equation is 1.4 cm.. Peak velocity 2.5 m/s. Mean AV gradient 10 mmHg. Max AV gradient 20 mmHg. DI=0.34. Trace aortic regurgitation. Mitral Valve Mild mitral annular calcification. The mitral valve leaflets are mildly thickened. No evidence of mitral valve stenosis. Mild mitral regurgitation. Tricuspid Valve The tricuspid valve leaflets are thin and pliable. Trace tricuspid regurgitation. There is insufficient TR jet to estimate RVSP. Pulmonic Valve The pulmonary valve is normal in structure. Trace pulmonic regurgitation. Great Vessels The aortic root is normal in size. The ascending aorta is normal in size. The IVC is not well-visualized. Pericardium There is no pericardial effusion. Other Information Study Quality: Fair Conclusion Normal biventricular systolic function. Mild to moderate (BROOKE by continuity equation is 1.4 cm.. Peak velocity 2.5 m/s. Mean AV gradient 10 mmHg. Max AV gradient 20 mmHg. DI=0.34). Mild MR. In the setting of mild to moderate , serial TTE evaluations are recommended. Electronically signed by : Carmen Gonzalez MD 06/13/2023 17:21:43
== END 2023-06-09 23:59 ==
LOC: RT 13:21
PROVIDERS: PCP Internal Medicine Adolescent Medicine; Visit Provider Nurse Practitioner Family
DX: I35.0 Nonrheumatic aortic (valve) stenosis (principal); R06.00 Dyspnea, unspecified; R60.0 Localized edema
CPT/HCPCS: 93306

== ENCOUNTER 2023-07-19 14:36 | Outpatient (CLI) | payer MEDICARE, SELFPAY ==
[2023-07-19 15:38] LABS: Anion Gap 11.9 mEq/L (5-15); Blood Urea Nitrogen 26 mg/dl (9-20); Calcium 10.3 mg/dl (8.4-10.2); Carbon Dioxide 26 mmol/L (22.0-30.0); Chloride 110 mmol/L (98-107); Estimated Glomerular Filt Rate 54 ml/min (>60); GFR (African American) 65 ML/MIN (>60); Glucose 97 mg/dl (74-100); Magnesium 2.2 mg/dl (1.6-2.3); Potassium 3.9 mmoL/L (3.5-5.1); Sodium 144 mmol/L (136-145)
[2023-07-19 15:47] LABS: NT Pro Brain Natriuretic Pep. 69.3 pg/mL (0-125)
== END 2023-07-19 23:59 ==
LOC: LAB 14:36
PROVIDERS: PCP Internal Medicine Adolescent Medicine; Visit Provider Physician Assistant
DX: R60.9 Edema, unspecified (principal); I11.0 Hypertensive heart disease with heart failure; I50.22 Chronic systolic (congestive) heart failure; Z87.891 Personal history of nicotine dependence
CPT/HCPCS: 36415; 80048; 83735; 83880

== ENCOUNTER 2023-11-04 14:57 | Outpatient (CLI) | payer MEDICARE, SELFPAY ==
--- NOTE | 2023-11-04 14:58 | CT_ITS ---
FINAL REPORT CLINICAL HISTORY: lung cancer screening FORMER SMOKER 12 YRS AGO 1.5 PPD X 22 YEARS FINDINGS: CT CHEST LOW DOSE SCREENING HISTORY: Screening exam for lung cancer. Former smoker, 22 pack year smoking history DOSE: CTDIvol: 2.90 mGy, DLP: 112.55 mGy*cm COMPARISON: None . TECHNIQUE: Axial CT without IV contrast administration using low dose protocol. This study was performed with techniques to keep radiation doses as low as reasonably achievable, (ALARA). Individualized dose reduction techniques using automated exposure control or adjustment of mA and/or kV according to the patient''s size were employed. FINDINGS: Oval opacity of the right middle lobe is noted. This may represent an area of pneumonia, fibrotic change, atelectasis or less likely mass. The associated density on axial imaging measures 29 x 16 mm. Clustered small nodularity is seen in the anterior lateral right upper lobe on images 30-31 with nodules measuring up to 3 mm. These are considered inflammatory.. Left lung is clear. No pleural or pericardial effusion is seen . No enlarged lymph node is present. Significant thyroid enlargement is noted with intrathoracic component extending posterior to the trachea.. IMPRESSION: 1. Abnormal density right middle lobe favor inflammatory but continued follow-up recommended 2. Significant thyromegaly encasing the trachea without tracheal narrowing LUNG RADS CATEGORY 0, incomplete RECOMMENDATION: Short-term low-dose chest CT follow-up in 2 months for continued surveillance of right middle lobe abnormality Authenticated and [facility]
== END 2023-11-04 23:59 | disposition home or self-care (01) ==
LOC: RAD 14:58
PROVIDERS: PCP Internal Medicine Pulmonary Disease; Visit Provider Internal Medicine Pulmonary Disease
DX: F17.210 Nicotine dependence, cigarettes, uncomplicated (principal)
CPT/HCPCS: 71271

== ENCOUNTER 2023-12-16 11:58 | Outpatient (CLI) | payer MEDICARE, SELFPAY ==
--- NOTE | 2023-12-16 12:01 | CT_ITS ---
FINAL REPORT TECHNIQUE: Multiple axial CT sections were performed through the face with IV contrast. Coronal reconstruction images were performed. This study was performed with techniques to keep radiation doses as low as reasonably achievable (ALARA). Individualized dose reduction techniques using automated exposure control or adjustment of mA and/or kV according to the patient's size were employed. CLINICAL HISTORY: ORAL-NASAL FISTULA COMPARISON: None FINDINGS: CT FACIAL BONES: CT of the facial bones was performed with intravenous contrast. No evidence of nasal bone fracture is seen. There is moderate mucosal thickening present in the right maxillary sinus, and a small polyp versus retention cyst in the left maxillary sinus. There is a bony defect in the floor of the right maxillary sinus which extends through the right maxilla into the oral cavity. This is best seen on coronal image #26. No fluid collection is identified, and no evidence of focal inflammation to suggest an abscess is seen. Note is made of multiple bilateral tonsillar calcifications. IMPRESSION: There is a bony defect in the floor the right maxillary sinus, which extends through the right maxilla into the oral cavity. Reviewed, Interpreted and Dictated by Jassi Pretty III, MD Transcribed by Carolyn Spain Authenticated and [facility]
[2023-12-16 12:26] LABS: Blood Urea Nitrogen 17 mg/dl (9-20); Estimated Glomerular Filt Rate 59 ml/min (>60); GFR (African American) 72 ML/MIN (>60)
[2023-12-16] MEDS: IOPAMIDOL-370 (76%);100ML BOTTLE 80 ML IV (13:07)
== END 2023-12-16 23:59 | disposition home or self-care (01) ==
LOC: RAD 11:58
PROVIDERS: PCP Internal Medicine Adolescent Medicine; Visit Provider Dentist General Practice
DX: Q36.9 Cleft lip, unilateral (principal)
CPT/HCPCS: 36415; 70487; 82565; 84520; Q9967

== ENCOUNTER 2024-01-02 12:59 | Outpatient (CLI) | payer MEDICARE, SELFPAY ==
--- NOTE | 2024-01-02 13:00 | US_ITS ---
FINAL REPORT CLINICAL HISTORY: history of enlarged thyroid/nodules COMPARISON: 01/10/2023 FINDINGS: THYROID ULTRASOUND FINDINGS: SIZE: Normal ECHOGENICITY: Homogeneous LESIONS: Multiple nodules. There are a few cysts in the right lobe. There is an isoechoic TR 3 nodule noted within the posterior right lobe measuring up to 15 mm. This is stable compared to the prior exam. There is a small spongiform, hypoechoic nodule in the inferior right lobe measuring up to 19 mm which is unchanged and considered as a TR 2 nodule. There is a dominant hypoechoic mass in the left lobe considered a TR 4 nodule. This lesion measures up to 35 mm and previously measured 46 mm. Size difference is likely due to measuring technique. This measures 31 mm in AP dimension and is stable. OTHER: No additional findings. IMPRESSION: Stable, multiple, bilateral thyroid nodules are favored to be benign. RECOMMENDATIONS: 12-month follow-up thyroid scan is recommended. Reviewed, Interpreted and Dictated by Alexandro Peng MD Transcribed by Dejah Irving Authenticated and [facility]
== END 2024-01-02 23:59 | disposition home or self-care (01) ==
PROVIDERS: PCP Internal Medicine Adolescent Medicine; Visit Provider Student in an Organized Health Care Education/Training Program
DX: E01.0 Iodine-deficiency related diffuse (endemic) goiter (principal)
CPT/HCPCS: 76536

== ENCOUNTER 2024-07-19 12:30 | Outpatient (CLI) | payer MEDICARE, SELFPAY ==
--- NOTE | 2024-07-19 13:00 | CT_ITS ---
FINAL REPORT TECHNIQUE: Axial CT without IV contrast administration. Coronal and sagittal images were obtained and reviewed. This study was performed with techniques to keep radiation doses as low as reasonably achievable, (ALARA). Individualized dose reduction techniques using automated exposure control or adjustment of mA and/or kV according to the patient''s size were employed. CLINICAL HISTORY: 6 moth F/U June 2024 COMPARISON: 11/04/2023 CT low-dose FINDINGS: There is an oval density in the right mid lung along the minor fissure measuring 28 x 10 mm on axial imaging and 8 mm in thickness on coronal imaging. This previously measured 35 x 16 mm on axial and 13 mm in thickness. Given size reduction this is compatible with combination of scarring and improved pneumonia. Clustered nodules in the right upper lobe are stable and compatible with benign inflammatory nodules. No pleural or pericardial effusion is seen. No adenopathy or mass lesion is present. IMPRESSION: Improved discoid type density right middle lung compatible with improved inflammatory process with residual scar. Recommend resuming annual low-dose screening chest CT. Reviewed, Interpreted and Dictated by Alexandro Peng MD Transcribed by Linette Arellano Authenticated and . [facility]
== END 2024-07-19 23:59 | disposition home or self-care (01) ==
LOC: RAD 12:31
PROVIDERS: PCP Internal Medicine Adolescent Medicine; Visit Provider Internal Medicine Pulmonary Disease
DX: R91.8 Other nonspecific abnormal finding of lung field (principal)
CPT/HCPCS: 71250

== ENCOUNTER 2024-08-09 12:23 | Outpatient (CLI) | payer MEDICARE, SELFPAY ==
--- NOTE | 2024-08-09 13:00 | CA_ITS ---
APPROVED REPORT EXAM: Comprehensive 2D, Doppler, and color-flow Echocardiogram Epic Interface Analyst: Symone Terry RVT Ht: 5 ft 10 in Wt: 256lbs BSA: 2.32 BP: 140/76 mmHg Indications: HFrEF,copd,,edema,a-fib,cad,josesito,htn,ex smoker 2D Dimensions IVSd 1.29 cm M: 0.6-1.2 LVEF (Visual) 58.10 % PWd 1.16 cm M: 0.6 - 1.2 LA Volume 31.60 mL LVDd 4.10 cm M: 4.2 - 5.9 LA Volume Index 13.62 mL/m2 (M/F) 16-34 LVDs 2.86 cm M: 2.5 - 4.0 M-Mode Dimensions LA Diam 4.44 cm (1.9-4.0) TAPSE 2.63 (<1.7) LV Diastology E Decel Time 150 (160-240 msec) E/A Ratio 0.7 Aortic Valve BROOKE Index 1.03 cm2/m2 AoV Peak Tonny. 193.0 (50-130 cm/s) AO Peak GR. 14.90 mmHg AO Mean GR. 8.90 (<5 mmHg) AO VTI 33.7 (18-25 cm) BROOKE (VTI) 2.45 (2.5-4.5 cm2) Mitral Valve MV E Max Tonny. 61.0 (40-130 cm/s) MV A Velocity 87.0 (40-130 cm/s) E/A Ratio 0.69 MV PHT 44.0 ms Pulmonary Valve PV Peak Velocity 22.0 (50-150 cm/s) Left Ventricle The left ventricle is normal size. The left ventricular systolic function is normal. The left ventricular ejection fraction is within the normal range. There is increased overall thickness. There is normal LV segmental wall motion. Transmitral Doppler flow pattern suggests impaired LV relaxation. LVEF is 55%. Right Ventricle The right ventricle is normal size. The right ventricular systolic function is normal. Atria The left atrium size is normal. The right atrium size is normal. There is no Doppler evidence of interatrial shunt. Aortic Valve Aortic valve is mildly thickened. Mild to moderate aortic stenosis is present. BROOKE by continuity equation is 1.5 cm???. Peak velocity 2.2 m/s. Mean AV gradient 12 mmHg. Max AV gradient 18 mmHg. Trace aortic regurgitation. Mitral Valve The mitral valve leaflets are mildly thickened. No evidence of mitral valve stenosis. Trace mitral regurgitation. Tricuspid Valve Tricuspid valve is grossly normal in structure and function. Trace tricuspid regurgitation. There is insufficient TR jet to estimate RVSP. Pulmonic Valve The pulmonary valve is normal in structure. Mild pulmonic regurgitation. Great Vessels The aortic root is normal in size. IVC is normal in size and collapses >50% with inspiration. Pericardium There is a small sized, anterior pericardial effusion present along the mid to distal RV free wall. The largest pocket measures 0.6 cm in diastole. No evidence of chamber collapse. No echo indications of tamponade. Other Information Study Quality: Fair Conclusion Normal biventricular systolic function. Mild to moderate (BROOKE by continuity equation is 1.5 cm???. Peak velocity 2.2 m/s. Mean AV gradient 12 mmHg. Max AV gradient 18 mmHg). Mild PI. There is a small sized, anterior pericardial effusion present along the mid to distal RV free wall. The largest pocket measures 0.6 cm in diastole. No evidence of chamber collapse. No echo indications of tamponade. Electronically signed by : Carmen Gonzalez MD 08/16/2024 13:22:55
== END 2024-08-09 23:59 | disposition home or self-care (01) ==
LOC: RT 12:24
PROVIDERS: PCP Internal Medicine Adolescent Medicine; Visit Provider Physician Assistant
DX: I35.0 Nonrheumatic aortic (valve) stenosis (principal); I37.1 Nonrheumatic pulmonary valve insufficiency; I50.20 Unspecified systolic (congestive) heart failure
CPT/HCPCS: 93306

== ENCOUNTER 2024-12-19 13:57 | Outpatient (CLI) | payer MEDICARE, SELFPAY ==
--- OUTSIDE RECORDS SUMMARY | 2024-12-19 13:59 | XMS_ITS | Encounter Summary ---
Author Organization Healthcare Address [address] [place] [address] Care Team Providers Care Hydroelectric Plant Electrical Engineer Name Role Phone Henrry Vegas MD Primary Care Provider [phone] Zackary Smith MD Unavailable [phone] Hector Henry Unavailable Reason for Referral * Consultation (Routine) - Closed Specialty Diagnoses / Procedures Referred By Contac t Referred To Contact Oral Surgery Diagnoses Oroantral communication Matthew Triana DMD [address] [place] [address] Phone: tel: fax: [facility] slot operations director [facility] [address] [place] [address] [address] [place] [address] Phone: tel: Referral ID Status Reason Start Date Expiration Date V isits Requested Visits Authorized [id number] Closed Specialty Services Required 11/24/2023 05/25/2025 1 1 Encounter Details Date Type Department Care Team (Late st Contact Info) Description 11/24/2023 Community Orders Community Practice [address] [place] [address] Matthew Triana DMD [address] [place] [address] Oroantral communication (Primary Dx) Social History Tobacco Use Types Packs/Day Years Used Date Smoking Tobacco: Every Day Sex and Gender Information Value Date Recorded Sex Assigned at Not on file Legal Sex Male 6:01 PM EDT Gender Identity Not on file Sexual Orientation Not on file documented as of this encounter Plan of Treatment Scheduled Referrals Name Type Priority Associated Diagnoses Orde r Schedule Ambulatory referral to Oral Maxillofacial Surgery Outpatient Referral Routine Oroantral Communication Ordered: 11/24/2023 documented as of this encounter Visit Diagnoses Diagnosis Oroantral communication- Primary documented in this encounter Care Teams Hydroelectric Plant Electrical Engineer Relationship Specialty Start Date End Date Henrry Vegas MD [address] [facility] [address] [address] PCP - General 08/22/20 Zackary Smith MD [address] [address] Photolithographer 12/27/23 Hector Henry PA [address] [id number] Photolithographer 12/27/23 documented as of this encounter
--- OUTSIDE RECORDS SUMMARY | 2024-12-19 13:59 | XMS_ITS | Clinical Summary ---
Author Organization [facility] Address [address] [place] [address] Phone Care Team Providers Care Triage Nurse Name Role Phone Marta Santana Unavailable Unavailable Conditions or Problems Problem Name Problem Code Onset Date Status Entry Date Provider Comment Standard Description Annotate Chronic systolic heart failure 383209458 (SNOMED CT) Active Sharif Mathew MD Chronic systolic heart failure C. Difficile colitis, recurrent 18198819 (SNOMED CT) Active Winnie Hernandez Enterocolitis Coronary artery disease (CAD) 75029713 (SNOMED CT) Active Winnie Hernandez Coronary arteriosclerosis Obesity due to excess calories E66.09 (ICD-10-CM ) Active Winnie Hernandez Other obesity due to excess calories Benign Essential Hypertension 39131503 (SNOMED CT) Active Winnie Hernandez Benign hypertension Medications Medication Instructions Start Date Stop Date Generic Name [facility] Provider PEPCID 20 MG TABS Take 1 tablet by mouth twice a day 05/01 famotidine 49384214882 Sharif Mathew MD FAMOTIDINE 20 MG TABS TAKE 1 TABLET TWICE DAILY famotidine 56285115083 Sharif Mathew MD PANTOPRAZOLE SODIUM 40 MG [facility] pantoprazole [id number] Truman Pelayo Vancocin 125 mg capsule Take 1 capsule by mouth four times a day for 7 days. Then 125 mg 3 times daily for 7 days. Then 125 mg 2 times daily for 7 days. Then 125 mg once daily for 7 days. Then 125 mg every other day for 14 days, then stop. vancomycin [id number] Sharif Mathew MD PEPCID 20 MG TABS Take 1 tablet by mouth twice a day 07/10 famotidine 27943019826 Sharif Mathew MD ATORVASTATIN CALCIUM 40 MG TABS atorvastatin 48090707091 Krima Chadd AMIODARONE HCL 200 MG TABS amiodarone 29869816614 Krima Chadd FLORASTOR 250 MG CAPS saccharomyces boulardii 35621656021 Krima Chadd Align 4 mg capsule bifidobacterium infantis 07194974795 Krima Chadd ENTRESTO 24-26 MG TABS sacubitril-valsar brown 19247747587 Truman Gita ENTRESTO 49-51 MG TABS sacubitril-valsa r brown 92648729740 Truman Gita BREO ELLIPTA 200-25 MCG/ACT AEPB 04/18 fluticasone furoate-vilantero l 63546657499 Truman Gita ENTRESTO 97-103 MG TABS sacubitril-valsar brown 00170862393 Truman [place] STIOLTO RESPIMAT 2.5-2.5 MCG/ACT AERS tiotropium-olodat chanel 61768508169 Truman Gita ANORO ELLIPTA 62.5-25 MCG/ACT AEPB 10/09 umeclidinium-edelmira nterol 12390674938 Truman Gita ELIQUIS 2.5 MG TABS apixaban 88987804797 Truman [place] XARELTO 20 MG TABS rivaroxaban 01235680183 Truman [place] NITROFURANTOIN MONOHYD MACRO 100 MG CAPS 07/10 nitrofurantoin monohyd/m-cryst 39305711507 Truman Gita ALLOPURINOL 300 MG TABS allopurinol 06645849427 Truman [place] PANTOPRAZOLE SODIUM 40 MG TBEC 07/10 pantoprazole 56458094638 Truman [place] SPIRONOLACTONE 25 MG TABS spironolactone 80150245988 Truman Gita TAMSULOSIN HCL 0.4 MG CAPS tamsulosin 07666313294 Truman [place] FUROSEMIDE 40 MG TABS furosemide 61849724942 Truman Gita AMIODARONE HCL 200 MG TABS 06/07 amiodarone 55385300449 Truman [place] SPIRONOLACTONE 50 MG TABS spironolactone 88704098752 Truman Gita FINASTERIDE 5 MG TABS 07/10 finasteride 66677272344 Truman Gita CEFDINIR 300 MG CAPS 07/10 cefdinir 00192938052 Truman Gita KETOCONAZOLE 2 % CREA 10/09 ketoconazole 19329208145 Truman [place] ALBUTEROL SULFATE HFA 108 (90 Base) MCG/ACT AERS albuterol sulfate 02903454289 Truman Gita VANCOMYCIN HCL 250 MG CAPS 10/09 vancomycin 51338758607 Truman Gita FLECAINIDE ACETATE 50 MG TABS flecainide 68479246738 Truman [place] LIDOCAINE 5 % PTCH 07/10 lidocaine 97206781820 Truman Gita BISOPROLOL FUMARATE 5 MG TABS 10/09 bisoprolol fumarate 68616554703 Truman [place] AMIODARONE HCL 400 MG TABS 07/10 amiodarone 92955813695 Truman Gita HYDRALAZINE HCL 25 MG TABS 07/10 hydralazine 83072552893 Truman [place] CIPROFLOXACIN HCL 500 MG TABS ciprofloxacin hcl 31731216157 Truman Gita SUCRALFATE 1 GM TABS sucralfate 08771517668 Truman Gita CARVEDILOL 12.5 MG TABS carvedilol 27724890730 Truman Gita DILTIAZEM HCL ER COATED BEADS 180 MG [id number] 07/10 diltiazem hcl 99783934963 Truman Gita ATORVASTATIN CALCIUM 40 MG TABS atorvastatin 17965853072 Truman [place] Medications Administered No information available. Allergies, Adverse Reactions, Alerts Allergy Name Reaction Description Start Date Severity Statu s Provider PENICILLIN G POT IN DEXTROSE Moderate Active Sharif kenyon MD Results Date Name Value Unit Range Flag Description Office Visit: room 7 new pat eint ORALTOBACUSE Never Tobacco smoking status SMOK STATUS Never smoker Toba head buyer tobacco smoking status MEDS REVIEW Done Documenta tion of current medications (procedure) Plan of Care No information available. Procedures No information available. Vital Signs Date Name Value Unit Description BMI (Body Mass Index) 32.88 kg/m2 Bod y Mass Index (Ratio) Body Temperature 96.8 [degF] temperat ure E&M BP Diastolic 64 mm[Hg] blood pressu re, diastolic BP Systolic 102 mm[Hg] blood pressur e, systolic Heart Rate 80 /min pulse rate Height 70 [in_us] height E&M Respiratory Rate 16 /min respirat ory rate E&M Weight Measured 229.2 [lb_av] weight E& M Weight Measured 229.2 [lb_av] weight E& M Immunizations No information available. Advance Directives Directive Description Start Date NO DIRECTIVES AT THIS MOMENT
--- OUTSIDE RECORDS SUMMARY | 2024-12-19 13:59 | XMS_ITS | Encounter Summary ---
Author Organization Healthcare Address [address] [place] [address] Care Team Providers Care Dispatcher Chief Coal Slurry Name Role Phone Henrry Vegas MD Primary Care Provider [phone] Zackary Smith MD Unavailable [phone] Hector Henry Unavailable Encounter Details Date Type Department Care Team (Late st Contact Info) Description 11/22/2023 Community [facility] Community Practice [address] [place] [address] Matthew Triana, [address] [address] Social History Tobacco Use Types Packs/Day Years Used Date Smoking Tobacco: Every Day Sex and Gender Information Value Date Recorded Sex Assigned at Not on file Legal Sex Male 6:01 PM EDT Gender Identity Not on file Sexual Orientation Not on file documented as of this encounter Plan of Treatment Not on file documented as of this encounter Visit Diagnoses Not on filedocumented in this encounter Care Teams Dispatcher Chief Coal Slurry Relationship Specialty Start Date End Date Henrry Vegas MD [address] [place] [address] [address] PCP - General 08/22/20 Zackary Smith MD [address] [place] [address] Trestle Mainternance Laborer 12/27/23 Hector Henry PA [address] [place] [address] Trestle Mainternance Laborer 12/27/23 documented as of this encounter
--- OUTSIDE RECORDS SUMMARY | 2024-12-19 13:59 | XMS_ITS | Clinical Summary ---
Author Organization Healthcare Address [address] [place] [address] Care Team Providers Care Doctor Of Audiology Name Role Phone Henrry Vegas MD Primary Care Provider + [phone] Zackary Smith MD Unavailable [phone] Hector Henry Unavailable Social History Tobacco Use Types Packs/Day Years Used Date Smoking Tobacco: Every Day Sex and Gender Information Value Date Recorded Sex Assigned at Not on file Legal Sex Male 6:01 PM EDT Gender Identity Not on file Sexual Orientation Not on file Last Filed Vital Signs Vital Sign Reading Time Taken Comments Blood Pressure 138/103 12/27/2023 9:44 AM EDT Pulse 80 12/27/2023 9:44 AM EDT Temperature - - Respiratory Rate - - Oxygen Saturation 97% 11/29/2023 2:25 PM EDT Inhaled Oxygen Concentration - - Weight 118 kg (260 lb) 11/29/2023 2:25 PM EDT Height 177.8 cm (5' 10 ) 11/29/2023 2:25 PM EDT Body Mass Index 37.31 11/29/2023 2:25 PM EDT Plan of Treatment Health Maintenance Due Date Last Done Comments Dental Oral Exam 1949 Dental Prophylaxis 1950 Dental X-Ray: Bitewings 1949 Dental X-Ray: Full Mouth 1949 [facility]-Depression Screening 1949 [facility]-Hepatitis C Screening 1949 [facility]-Medicare Annual Wellness (AWV) 1949 [facility]-/Child/Adol SDOH Screenings 1949 [facility]- SDOH Screenings 1967 [facility]-Adult SDOH Screenings 1967 CT Colonography 1994 Colonoscopy 1994 FIT-DNA 1994 FIT 1994 FOBT 1994 Sigmoidoscopy 1994 [facility]-Colorectal Cancer Screening 1994 [facility]-RSV Vaccine: 60+ Years o r (1 - 1-dose 75+ series) 01/04/2024 [id number]-07 Vaccine (4 - season) 2024 03/23/2022, 02/26/2021, 06/19/2020 [facility]-Influenza Vaccine (#1) 12/10/202412/28, 12/30/2020, 03/25/2020 [facility]-DTaP,Tdap,and Td Vaccine s (2 - Td or Tdap) 10/05/2033 10/06/2023 [facility]-Pneumococcal Vaccine: 50 + Years Completed 08/24/2022 [facility]-Zoster Vaccines Completed 12/28/2022, 08/24/2022 [facility]-Obesity Intervention Completed 12/27/2023 HPV Vaccines Aged Out No longer eligi ble based on patient's age to complete this topic [facility]-HIB Vaccines Aged Out No longer e ligible based on patient's age to complete this topic [facility]-Hepatitis A Vaccines Aged Out No longer eligible based on patient's age to complete this topic [facility]-IPV Vaccines Aged Out No longer e ligible based on patient's age to complete this topic [facility]-Rotavirus Vaccines Aged Out No lo nger eligible based on patient's age to complete this topic Insurance MEDICARE Care Teams Doctor Of Audiology Relationship Specialty Start Date End Date Henrry Vegas MD 1210 [facility] [address] [place] [address] PCP - General 08/22/20 Zackary Smith MD [address] [address] Float Builder 12/27/23 Hector Henry PA [address] [place] [address] [address] Float Builder 12/27/23
--- NOTE | 2024-12-19 14:30 | US_ITS ---
FINAL REPORT TECHNIQUE: Sonographic images of the thyroid gland were obtained in the longitudinal and transverse planes. CLINICAL HISTORY: hx nodules COMPARISON: 01/02/2024 FINDINGS: The right lobe measures 0.2 x 5.6 x 6.5 cm. The right lobe is heterogeneous. There is a hypoechoic lower lobe nodule measuring 18 mm in size, stable. There is an isoechoic 15 mm nodule, TI-RADS category 3 nodule, stable. A small colloid cyst is present as well. The left lobe measures 3.8 x 5.0 x 6.9 cm. The left lobe is heterogeneous. There is a large left nodule which is predominantly hypoechoic, which measures 41 mm in size, was previously 35 mm in size. This may be technical, given that the more remote prior measured 46 mm in size. No new nodules are identified on the left. The isthmus measures 9 mm. This is enlarged IMPRESSION: Multiple thyroid nodules are again noted, given differences in technique appear stable when compared to the prior exam. Recommend follow-up thyroid ultrasound in 12 months. Reviewed, Interpreted and Dictated by Mel Lozoya MD Transcribed by Carolyn Spain Authenticated and [facility]
== END 2024-12-19 23:59 | disposition home or self-care (01) ==
PROVIDERS: PCP Internal Medicine Adolescent Medicine; Visit Provider Nurse Practitioner
DX: E04.2 Nontoxic multinodular goiter (principal)
CPT/HCPCS: 76536

== ENCOUNTER 2025-02-06 12:29 | Outpatient (CLI) | payer MEDICARE, SELFPAY ==
--- OUTSIDE RECORDS SUMMARY | 2025-02-06 12:32 | XMS_ITS | Encounter Summary ---
Author Organization [employer] ([place], [place], [place], [place]) Address [address] [place] [address] Care Team Providers Care Professor Of Literacy Name Role Phone Unavailable Primary Care Provider Unavailabl e Encounter Details Date Type Department Care Team (Late st Contact Info) Description 07/30/2019 Transcribed Document [facility] Family Medicine [address] [place] [address] ProviderTobias MD [address] [place] [address] Social History Tobacco Use Types Packs/Day Years Used Date Smoking Tobacco: Never Assessed Sex and Gender Information Value Date Recorded Sex Assigned at Male 10/08/2021 11:56 AM CDT Legal Sex Male 6:58 PM CDT Gender Identity Male 10/08/2021 11:56 AM CDT Sexual Orientation Not on file documented as of this encounter Miscellaneous Notes * Cerner Conversion Note - Historical ProviderMD - 07/30/2019 5:00 AM CDT Chart Check - Review Order Profile Entered On: 07/30/2019 4:27 EDT Performed On: 07/30/2019 5:00 EDT by Samra Chavez RN-TRAVELER Chart Check Powerplans Initiated/Discontinued as Appropriate : Yes All Active Orders Reviewed : Yes Samra Chavez RN-TRAVELER - 07/30/2019 4:27 EDT documented in this encounter Plan of Treatment Not on file documented as of this encounter Visit Diagnoses Not on filedocumented in this encounter
--- OUTSIDE RECORDS SUMMARY | 2025-02-06 12:32 | XMS_ITS | Encounter Summary ---
Author Organization [employer] ([place], [place], [place], [place]) Address [address] [place] [address] Care Team Providers Care Coremaker Apprentice Name Role Phone Unavailable Primary Care Provider Unavailabl e Encounter Details Date Type Department Care Team (Late st Contact Info) Description 07/30/2019 Transcribed Document [facility] Family Medicine [address] [place] [address] ProviderTobias MD [address] [place] [address] Social History Tobacco Use Types [...] Conversion Note - Historical ProviderMD - 07/30/2019 1:02 AM CDT Event Note Entered On: 07/30/2019 1:02 EDT Performed On: 07/30/2019 1:02 EDT by Samra Chavez RN-TRAVELER Event Note Event Date/Time : 07/30/2019 1:00 EDT Event Location : Assigned room Event Details : Other: pt was letty with pac pvs and pauses was able to capture on ekg strip and placed in front of chart Samra Chavez RN-TRAVELER - 07/30/2019 1:02 EDT documented in this encounter Plan of Treatment Not on file documented as of this encounter Visit Diagnoses Not on filedocumented in this encounter
--- OUTSIDE RECORDS SUMMARY | 2025-02-06 12:32 | XMS_ITS | Encounter Summary ---
Author Organization [employer] ([place], [place], [place], [place]) Address [address] [place] [address] Care Team Providers Care Contracts Analyst Name Role Phone Unavailable Primary Care Provider Unavailabl e Encounter Details Date Type Department Care Team (Late st Contact Info) Description 07/31/2019 Transcribed Document [facility] [place] [address] [place] [address] ProviderTobias MD [address] [place] [address] Social History Tobacco Use Types Packs/Day Years Used Date Smoking Tobacco: Never Assessed Sex and Gender Information Value Date Recorded Sex Assigned at Male 10/08/2021 11:56 AM CDT Legal Sex Male 6:58 PM CDT Gender Identity Male 10/08/2021 11:56 AM CDT Sexual Orientation Not on file documented as of this encounter Miscellaneous Notes * Cerner Conversion Note - Historical ProviderMD - 07/31/2019 2:21 PM CDT On Going Discharge Planning Entered On: 07/31/2019 14:21 EDT Performed On: 07/31/2019 14:21 EDT by JORGE CLAY RN-Care Management Care Management Progress Note Discharge Arrangements : Patient Post-Acute Information Patient Name: AVI PHILLIPS Gender: Male : [birth year] Age: 69 Years No Post-Acute Placement(s) Listed No Post-Acute Service(s) Listed No [place] Referral(s) Listed Discharge Options Discussed with Patient : Discharge transportation, DME, Home Health, Outpatient services, Short term rehabilitation Barriers to Discharge Identified : Clinical Condition of Patient Barriers to Discharge Unresolved : Clinical Condition of Patient, Follow-Up appointments needed Patient Offered Choice/Affiliations Explained : Yes List/Info Provided Pt/Fam/Support Person : Other: rehab JORGE CLAY, RN-Care Management - 07/31/2019 14:21 EDT Narrative Progress Note Narrative Progress Note : UPdate, Isabel bethea/[facility] phoned and made bed offer. Pt agreeable to placement, and updated [facility] who was closely following of pt new plan. Historical Progress Note : NOted medication changes initiated w/plans of pacemaker placement 08/01. [facility] following pt and PT/OT orders will need to be entered postop. CM to cont following and updates to be sent accordingly JORGE CLAY, RN-Care Management - 07/31/19 12:36:41 Referral sent to [facility] and facilities in [facility] SUSAN SIN Rn-Associate Sales Manager - 07/30/19 16:43:01 JORGE CLAY, RN-Care Management - 07/31/2019 14:21 EDT Electronically signed by Millie Sebastian Conversion Felt Hat Flanging Operator Cerner at 07/26/2022 6:19 PM CDT documented in this encounter Plan of Treatment Not on file documented as of this encounter Visit Diagnoses Not on filedocumented in this encounter
--- OUTSIDE RECORDS SUMMARY | 2025-02-06 12:32 | XMS_ITS | Encounter Summary ---
Author Organization [employer] ([place], [place], [place], [place]) Address [address] [place] [address] Care Team Providers Care Marketing Lead Name Role Phone Unavailable Primary Care Provider Unavailabl e Encounter Details Date Type Department Care Team (Late st Contact Info) Description 07/27/2019 Transcribed Document [facility] [place] Family Medicine [address] [place] [address] ProviderTobias MD [address] [place] [address] Social History Tobacco Use Types Packs/Day Years Used Date Smoking Tobacco: Never Assessed Sex and Gender Information Value Date Recorded Sex Assigned at Male 10/08/2021 11:56 AM CDT Legal Sex Male 6:58 PM CDT Gender Identity Male 10/08/2021 11:56 AM CDT Sexual Orientation Not on file documented as of this encounter Miscellaneous Notes * Cerner Conversion Note - Historical ProviderMD - 07/27/2019 2:11 PM CDT UM Authorization Entered On: 07/27/2019 14:11 EDT Performed On: 07/27/2019 14:11 EDT by THIERNO ZHOU RN Primary Insurance Authorization Authorization and Policy Numbers : Insurance 1 Health Plan: [employer] P[employer] Policy Number: [id number] Authorization Number: Insurance Primary Name : [employer] P[employer] Policy Number: [id number] Authorization Status-Primary : Notification only Reference Number-Primary : [id number] Authorized Service Begin Date-Primary : 07/27/2019 EDT Authorization Comments-Primary : IP auth per Avail[employer] Historical Authorization Comments-Primary : No Authorization Comments Found THIERNO ZHOU RN - 07/27/2019 14:11 EDT Electronically signed by Romulo [facility] Conversion Quality Management Coordinator Cerner at 07/26/2022 6:19 PM CDT documented in this encounter Plan of Treatment Not on file documented as of this encounter Visit Diagnoses Not on filedocumented in this encounter
--- OUTSIDE RECORDS SUMMARY | 2025-02-06 12:32 | XMS_ITS | Encounter Summary ---
Author Organization [email or web address] ([place], [place], [place], [place]) Address [address] [place] [address] Care Team Providers Care Director Talent Acquisition Name Role Phone Unavailable Primary Care Provider Unavailabl e Encounter Details Date Type Department Care Team (Late st Contact Info) Description 07/30/2019 Transcribed Document [facility] [place] Family Medicine [address] [place] [address] ProviderTobias MD [address] [place] [address] Social History Tobacco Use Types [...] Note - Historical ProviderMD - 07/30/2019 5:00 PM CDT Chart Check - Review Order Profile Entered On: 07/30/2019 18:17 EDT Performed On: 07/30/2019 17:00 EDT by Zuleyma Griffiths, RN Chart Check Powerplans Initiated/Discontinued as Appropriate : Yes All Active Orders Reviewed : Yes Zuleyma Griffiths, RN - 07/30/2019 18:17 EDT documented in this encounter Plan of Treatment Not on file documented as of this encounter Visit Diagnoses Not on filedocumented in this encounter
--- OUTSIDE RECORDS SUMMARY | 2025-02-06 12:32 | XMS_ITS | Encounter Summary ---
Author Organization [employer] ([place], [place], [place], [place]) Address [address] [place] [address] Care Team Providers Care Ski Production Supervisor Name Role Phone Unavailable Primary Care Provider Unavailabl e Encounter Details Date Type Department Care Team (Late st Contact Info) Description 07/27/2019 Transcribed Document [facility] [place] [address] [place] [address] ProviderTobias MD [address] [place] [address] Social History Tobacco Use Types [...] Conversion Note - Historical ProviderMD - 07/27/2019 12:53 PM CDT Evaluation, Physical Therapy Entered On: 07/28/2019 13:44 EDT Performed On: 07/28/2019 11:30 EDT by LORRIE WAHL, LARS General Information, PT Visit Type, PT : Initial evaluation Patient Orders : Order Date Order Ordering 07/27/2019 12:53 Consult to Physical Therapy Ordered By: ARNOLDO VALLADARES MD-INT Active Diagnoses : No Qualifying Diagnoses Therapy Diagnosis, PT : Decreased mobility due to hyperkalemia, acute on chronic kidney disease Onset of Problem, PT : 07/27/2019 EDT Admission Date : 07/27/2019 00:54 Co-treated by, PT : Occupational Therapist Personal Devices : Personal Devices No Devices Recorded Assistive Devices : Assistive Devices No Devices Recorded Precautions in Place : Fall prevention measures General Information Comment, PT : Pt admitted with hyperkalemia, acute on chronic kidney disease, weakness and decreased heart rate. He has a history of AFib, Gout, Arthritis, HTN. LORRIE WAHL, PT - 07/28/2019 13:28 EDT General Status Patient Received Status : Supine in bed Treatment Start Time : 07/28/2019 11:12 EDT Patient Left Status : Supine in bed, RN/PCT informed, Sitter at bedside, All needs met and within reach Treatment End Time : 07/28/2019 11:30 EDT Treatment Time : 18 Minute(s) Actual Treatment Time : 18 Minute(s) LORRIE WAHL, PT - 07/28/2019 13:28 EDT History and Environment Living Situation, Therapy : Home Patient Lives With : Spouse Persons Assisting Patient at Home : Alone Professional Skilled Services : None Persons Providing Information : Patient Home Equipment Therapy, PT : Cane, Walker Cane : Cane, single point Walker : Walker, front wheel Home Setup : One story Stairs : Yes Stair Location(s) : Outside Outside Stairs, Number of Steps : 1 LORRIE WAHL, PT - 07/28/2019 13:28 EDT Prior Level of Function PT GRID Prior LOF Ambulation, Household : Independent Prior LOF Ambulation, Community : Assist needed Prior LOF Bed Mobility : Independent Prior LOF Toileting : Independent Prior LOF Transfer : Independent LORRIE WAHL, PT - 07/28/2019 13:28 EDT Prior LOF Assist with ADL Comment : Pt says his helps him get dressed and with anything else he needs, but he can get OOB and amb with his Rwx for short, household distances. LORRIE WAHL, PT - 07/28/2019 13:28 EDT Upper Extremity Right UE Active ROM : WFL Right UE Strength : WFL Left UE Active ROM : WFL Left UE Strength : WFL LORRIE WAHL, PT - 07/28/2019 13:28 EDT Lower Extremity RLE Active ROM : WFL Right LE Strength : WFL LLE Active ROM : WFL Left LE Strength : WFL LORRIE WAHL, PT - 07/28/2019 13:28 EDT Functional Mobility Mobility Grid Supine to Sit : Rehab Minimal assistance Sit to Stand : Rehab Minimal assistance Stand to Sit : Rehab Minimal assistance Sit to Supine : Rehab Minimal assistance (Comment: For BLE back onto bed [LORRIE WAHL PT - 07/28/2019 13:28 EDT] ) (Comment: of 2 [LORRIE WAHL, PT - 07/28/2019 13:28 EDT] ) Bed Mobility Scooting Device : Rails Supine to Sit Device : Rails Sit to Stand Device : Belt, gait, Walker, front wheel LORRIE WAHL, PT - 07/28/2019 13:28 EDT Gait Training/Assessment, PT Weight Bearing Status Maintained : Yes Weight Bearing Status : Full Gait Assistance Level : Assist, minimal (Comment: of 2 [LORRIE WAHL, PT - 07/28/2019 13:28 EDT] ) Walking Distance : 4 steps to HOB Ambulatory Devices : Gait belt, Walker, front wheel Gait Deviations : Yes Gait Training Comment : Pt has a significant posterior lean but will correct with verbal cues. LORRIE WAHL, PT - 07/28/2019 13:28 EDT Activity Tolerance, PT Activity Comment : Pt got to EOB and then stood with PT/OT and realized he needed to have a bowel movement immediately. No bucket in BSC so pt sat on bedpan. MD came to talk to pt and after that he asked to stand and get cleaned, then lie back down. LORRIE WAHL, PT - 07/28/2019 13:28 EDT Cognition Assessment, PT Orientation : Oriented x 4 Safety/Judgment Comment : Good Follows Basic Command Assessment : Yes LORRIE WAHL, PT - 07/28/2019 13:28 EDT Edu Topics Physical Therapy Education Grid Balance Training : Needs further teaching Bed Mobility Training : Needs further teaching Gait Training : Needs further teaching Role of Physical Therapy : Verbalizes understanding Therapeutic Exercises : Needs further teaching Transfer Training : Needs further teaching LORRIE WAHL, PT - 07/28/2019 13:28 EDT Indication Assesessment, PT Physical Therapy Indicated : Yes PT Problem List : Impaired, bed mobility, Impaired, coordination/proprioception, Impaired, endurance tolerance, Impaired, gait, Impaired, standing balance, Impaired, transfers Potential Barriers To Therapy : None evident Rehabilitation Potential : Good LORRIE WAHL, PT - 07/28/2019 13:28 EDT Plan of Care, PT PT Tx Plan/Goals Established w Patient : Yes PT Frequency Rehab : Five days per week PT Duration Rehab : Fourteen days PT Treatments Planned : Balance training, Bed mobility training, Gait training, Therapeutic exercises, Transfer training LORRIE WAHL, PT - 07/28/2019 13:28 EDT Short Term Goals Mobility/Bed Mobility STG PT Grid Goal #1 Goal #2 Activity : Supine to sit Sit to stand Assist : Supervision or set-up Assist, minimal Equipment : Rail, bed Walker, front wheel Date to Meet : 08/04/2019 EDT 08/04/2019 EDT Goal Status : Initial goal Initial goal LORRIE WAHL, PT - 07/28/2019 13:28 EDT LORRIE WAHL, PT - 07/28/2019 13:28 EDT Ambulation STG Grid Goal #1 Device : Walker, front wheel Distance : 30' Assist : Assist, minimal Date to Meet : 08/04/2019 EDT Goal Status : Intial Goal LORRIE WAHL, PT - 07/28/2019 13:28 EDT Animal Pathology Teacher Goals Mobility/Bed Mobility LTG PT Grid Goal #1 Activity : Sit to stand Assist : Supervision or set-up Equipment : Walker, front wheel Date to Meet : 08/11/2019 EDT Goal Status : Intial Goal LORRIE WAHL, PT - 07/28/2019 13:28 EDT Ambulation LTG Grid Goal #1 Device : Walker, front wheel Distance : 100' Assist : Supervision or set-up Date to Meet : 08/11/2019 EDT Goal Status : Intial Goal LORRIE WAHL, PT - 07/28/2019 13:28 EDT Treatment Note Subjective Comment : Pt is very pleasant and appreciative of PT/OT coming. Originally he was going to amb to and from the doorway, stating he only walks short distances at home. Upon standing he needed to have a BM immediately, then MD came to see pt. He asked to step to HOB and then rest. Assessment : Good effort to do as much for himself as possible but needing min A for bed mobility and min A of 2 to stand. Not back to baseline. Plan for Treatment : Cont PTx LORRIE WAHL, PT - 07/28/2019 13:28 EDT Pain Assessment Pain Scaled Used : 0-10 Pain scale Pain Score During-Intervention : 10 Location : Legs, bilateral Pain Comment : Pt reports to PT/OT and then to his MD that he has a numbness like pain running down the outer parts of both thighs. MD says he will look at pt's meds for neuropathy and adjust as needed. Pt declines pain meds. LORRIE WAHL, PT - 07/28/2019 13:28 EDT Image 1 - Images currently included in the form version of this document have not been included in the text rendition version of the form. Anticipated Discharge Needs, OT/PT Anticipated Discharge to : Home, with home health (Comment: S1 [LORRIE WAHL, PT - 07/28/2019 13:28 EDT] ) LORRIE WAHL, PT - 07/28/2019 13:[address] [facility] PT Charges PT Eval Low Complexity : 1 LORRIE WAHL, PT - 07/28/2019 13:28 EDT Electronically signed by Millie Sebastian Conversion [employer] Special Education Teacher Cerner at 07/26/2022 6:18 PM CDT documented in this encounter Plan of Treatment Not on file documented as of this encounter Visit Diagnoses Not on filedocumented in this encounter
--- OUTSIDE RECORDS SUMMARY | 2025-02-06 12:32 | XMS_ITS | Encounter Summary ---
Author Organization [employer] ([place], [place], [place], [place]) Address [address] [place] [address] Care Team Providers Care Pilot Plant Supervisor Name Role Phone Unavailable Primary Care Provider Unavailabl e Encounter Details Date Type Department Care Team (Late st Contact Info) Description 07/27/2019 Transcribed Document [facility] [place] Family Medicine [address] [place] [address] ProviderTobias MD [address] [place] [address] Social History Tobacco Use Types [...] Conversion Note - Historical ProviderMD - 07/27/2019 1:12 AM CDT Consult Phone Call Documentation Entered On: 07/27/2019 9:42 EDT Performed On: 07/27/2019 1:12 EDT by Angela Garza Telephone Exchange Operator-Health Unit Coord Phone Call for Consults Consult Phone Call/Page Attempt : Other: Verbal Consult Reason : HALLIE Consult, Additional Information : Consult given to Elijah in person Angela Garza Telephone Exchange Operator-Health Unit Coord - 07/27/2019 9:42 EDT documented in this encounter Plan of Treatment Not on file documented as of this encounter Visit Diagnoses Not on filedocumented in this encounter
--- OUTSIDE RECORDS SUMMARY | 2025-02-06 12:32 | XMS_ITS | Clinical Summary ---
Author Organization [facility] Address [address] [place] [address] Phone Care Team Providers Care Lead Database Administrator Name Role Phone Marta Santana Unavailable Unavailable Conditions or Problems Problem Name Problem Code Onset Date Status Entry Date Provider Comment Standard Description Annotate Chronic systolic heart failure 469102428 (SNOMED CT) Active Sharif Mathew MD Chronic systolic heart failure C. Difficile colitis, recurrent 66689199 (SNOMED CT) Active Winnie Hernandez Enterocolitis Coronary artery disease (CAD) 04765268 (SNOMED CT) Active Winnie Hernandez Coronary arteriosclerosis Obesity due to excess calories E66.09 (ICD-10-CM ) Active Winnie Hernandez Other obesity due to excess calories Benign Essential Hypertension 39816396 (SNOMED CT) Active Winnie Hernandez Benign hypertension Medications Medication Instructions Start Date Stop Date Generic Name [facility] Provider PEPCID 20 MG TABS Take 1 tablet by mouth twice a day 05/01 famotidine 07617511647 Sharif Mathew MD FAMOTIDINE 20 MG TABS TAKE 1 TABLET TWICE DAILY famotidine 81599086405 Sharif Mathew MD PANTOPRAZOLE SODIUM 40 MG [facility] pantoprazole 17460440675 Truman Pelayo Vancocin 125 mg capsule Take 1 capsule by mouth four times a day for 7 days. Then 125 mg 3 times daily for 7 days. Then 125 mg 2 times daily for 7 days. Then 125 mg once daily for 7 days. Then 125 mg every other day for 14 days, then stop. vancomycin 02557016952 Sharif Mathew MD PEPCID 20 MG TABS Take 1 tablet by mouth twice a day 07/10 famotidine 17566074778 Sharif Mathew MD ATORVASTATIN CALCIUM 40 MG TABS atorvastatin 76869158133 Krima Chadd AMIODARONE HCL 200 MG TABS amiodarone 28527774622 Krima Chadd FLORASTOR 250 MG CAPS saccharomyces boulardii 76999214262 Krima Chadd Align 4 mg capsule bifidobacterium infantis 80097802911 Krima Chadd ENTRESTO 24-26 MG TABS sacubitril-valsar brown 56128583383 Truman Gita ENTRESTO 49-51 MG TABS sacubitril-valsa r brown 95186453176 Truman Gita BREO ELLIPTA 200-25 MCG/ACT AEPB 04/18 fluticasone furoate-vilantero l 41909343476 Truman Elliott ENTRESTO 97-103 MG TABS sacubitril-valsar brown 54281248864 Truman Gita STIOLTO RESPIMAT 2.5-2.5 MCG/ACT AERS tiotropium-olodat chanel 03810569069 Truman Elliott ANORO ELLIPTA 62.5-25 MCG/ACT AEPB 10/09 umeclidinium-edelmira nterol 64415312726 Truman Elliott ELIQUIS 2.5 MG TABS apixaban 58858168010 Truman Gita XARELTO 20 MG TABS rivaroxaban 02319447202 Truman Elliott NITROFURANTOIN MONOHYD MACRO 100 MG CAPS 07/10 nitrofurantoin monohyd/m-cryst 70719734704 Truman Gtia ALLOPURINOL 300 MG TABS allopurinol 27876245506 Truman Gita PANTOPRAZOLE SODIUM 40 MG TBEC 07/10 pantoprazole 89613173096 Truman Elliott SPIRONOLACTONE 25 MG TABS spironolactone 96994512957 Truman Elliott TAMSULOSIN HCL 0.4 MG CAPS tamsulosin 34664781886 Truman Gita FUROSEMIDE 40 MG TABS furosemide 85656818486 Truman Gita AMIODARONE HCL 200 MG TABS 06/07 amiodarone 83283171945 Truman Elliott SPIRONOLACTONE 50 MG TABS spironolactone 40638315836 Truman Gita FINASTERIDE 5 MG TABS 07/10 finasteride 79067036003 Truman Elliott CEFDINIR 300 MG CAPS 07/10 cefdinir 12040114051 Truman Elliott KETOCONAZOLE 2 % CREA 10/09 ketoconazole 42368884702 Truman Elliott ALBUTEROL SULFATE HFA 108 (90 Base) MCG/ACT AERS albuterol sulfate 43870475184 Truman Elliott VANCOMYCIN HCL 250 MG CAPS 10/09 vancomycin 58912310114 Truman Gita FLECAINIDE ACETATE 50 MG TABS flecainide 93765203833 Truman Elliott LIDOCAINE 5 % PTCH 07/10 lidocaine 32231538814 Truman Gita BISOPROLOL FUMARATE 5 MG TABS 10/09 bisoprolol fumarate 18474304775 Truman Elliott AMIODARONE HCL 400 MG TABS 07/10 amiodarone 31883076691 Truman Gita HYDRALAZINE HCL 25 MG TABS 07/10 hydralazine 72847861240 Truman Gita CIPROFLOXACIN HCL 500 MG TABS ciprofloxacin hcl 60552427281 Truman Gita SUCRALFATE 1 GM TABS sucralfate 26513614986 Truman Gita CARVEDILOL 12.5 MG TABS carvedilol 24386227618 Truman Elliott DILTIAZEM HCL ER COATED BEADS 180 MG [id number] 07/10 diltiazem hcl 66563362568 Truman Gita ATORVASTATIN CALCIUM 40 MG TABS atorvastatin 53791691848 Truman Elliott Medications Administered No information available. Allergies, Adverse Reactions, Alerts Allergy Name Reaction Description Start Date Severity Statu s Provider PENICILLIN G POT IN DEXTROSE Moderate Active Sharif kenyon MD Results Date Name Value Unit Range Flag Description Office Visit: room 7 new pat eint ORALTOBACUSE Never Tobacco smoking status SMOK STATUS Never smoker Toba insurance account assistant smoking status MEDS REVIEW Done Documenta tion [...]
--- OUTSIDE RECORDS SUMMARY | 2025-02-06 12:32 | XMS_ITS | Encounter Summary ---
Author Organization [employer] ([place], [place], [place], [place]) Address [address] [place] [address] Care Team Providers Care Tare Worker Name Role Phone Unavailable Primary Care Provider Unavailabl e Encounter Details Date Type Department Care Team (Late st Contact Info) Description 07/27/2019 Transcribed Document [facility] [place] Family Medicine [address] [place] [address] ProviderTobias MD [address] [place] [address] Social History Tobacco Use Types [...] Conversion Note - Historical ProviderMD - 07/27/2019 9:16 PM CDT Pain Assessment Entered On: 07/27/2019 23:45 EDT Performed On: 07/27/2019 22:27 EDT by AMARILYS KOENIG RN Intervention Information: acetaminophen Performed by AMARILYS KOENIG RN on 07/27/2019 21:27:00 EDT acetaminophen,650mg Oral,Pain (Mild 1-3) Pain Assessment Pain Assessment : Follow-up assessment Pain Improved by Intervention : Yes AMARILYS KOENIG RN - 07/27/2019 23:45 EDT documented in this encounter Plan of Treatment Not on file documented as of this encounter Visit Diagnoses Not on filedocumented in this encounter
--- OUTSIDE RECORDS SUMMARY | 2025-02-06 12:32 | XMS_ITS | Encounter Summary ---
Author Organization [employer] ([place], [place], [place], [place]) Address [address] [place] [address] Care Team Providers Care Proof Press Operator Name Role Phone Unavailable Primary Care Provider Unavailabl e Encounter Details Date Type Department Care Team (Late st Contact Info) Description 07/27/2019 Transcribed Document [facility] [place] Family Medicine [address] [place] [address] ProviderTobias MD [address] [place] [address] Social History Tobacco Use Types [...] Conversion Note - Historical ProviderMD - 07/27/2019 12:58 AM CDT Height and Weight, Clinical Dosing Entered On: 07/27/2019 0:59 EDT Performed On: 07/27/2019 0:58 EDT by Brooklyn Gimenez RN Height and Weight, Clinical Dosing Height Source : Measured Height, Feet : 5 ft(Converted to: 152 cm, 60 Inch) Height, Inches : 11 Inch(Converted to: 0 ft 11 Inch, 27.94 cm) Clinical Height : 180.34 cm Body Surface Area (BSA) : 2.37 m2 Body Mass Index : 36.8 kg/m2 (HI) [place] Body Weight : 74 kg LORENZO KYLE RN - 07/27/2019 12:50 EDT Height Entry Format : [place] Weight Source : Bed scale Weight Entry Format : Metric, kilograms Weight, Kilograms : 119.7 kg(Converted to: 263 lb 14 oz) Clinical Dosing Weight : 119.7 kg Brooklyn Gimenez, RN - 07/27/2019 0:58 EDT Electronically signed by Romulo [facility] Conversion Exchange Architect Cerner at 07/26/2022 6:19 PM CDT documented in this encounter Plan of Treatment Not on file documented as of this encounter Visit Diagnoses Not on filedocumented in this encounter
--- OUTSIDE RECORDS SUMMARY | 2025-02-06 12:33 | XMS_ITS | Encounter Summary ---
Author Organization [employer] ([place], [place], [place], [place]) Address [address] [place] [address] Care Team Providers Care Supplies Packer Name Role Phone Unavailable Primary Care Provider Unavailabl e Encounter Details Date Type Department Care Team (Late st Contact Info) Description 07/27/2019 Transcribed Document [facility] [place] [address] [place] [address] ProviderTobias MD [address] [place] [address] Social History Tobacco Use Types Packs/Day Years Used Date Smoking Tobacco: Never Assessed Sex and Gender Information Value Date Recorded Sex Assigned at Male 10/08/2021 11:56 AM CDT Legal Sex Male 6:58 PM CDT Gender Identity Male 10/08/2021 11:56 AM CDT Sexual Orientation Not on file documented as of this encounter Miscellaneous Notes * Cerner Conversion Note - Tobias ProviderMD - 07/27/2019 4:08 AM CDT Education-Diabetes Topics Entered On: 07/27/2019 12:47 EDT Performed On: 07/27/2019 4:08 EDT by LORENZO KYLE RN Teaching/Learning Assessment Barriers To Learning : Cognitive deficit Individuals Taught : Patient, Spouse Readiness to Learn : Cooperative Highest Level of Education : High school Baseline Knowledge of Topic : Good Readiness to Learn : Explanation Learning Style Preferences Patient : Verbal explanation Learning Style Preferences Family : Verbal explanation LORENZO KYLE RN - 07/27/2019 12:46 EDT Education, Diabetes Diabetes Education Grid Symptom Identification & Action Plan *Q : Verbalizes understanding Acute Complications : Verbalizes understanding Blood Glucose Monitoring : Verbalizes understanding Chronic Complications : Verbalizes understanding Community Resources : Verbalizes understanding Compliance Strategies : Verbalizes understanding Coping/Care Regimen : Verbalizes understanding Cost Issues : Verbalizes understanding Disease Process : Verbalizes understanding DKA Signs and Symptoms : Verbalizes understanding Follow-up Care : Verbalizes understanding Foot Care : Verbalizes understanding Gestational Management : Verbalizes understanding Infection Control : Verbalizes understanding Insulin Administration : Verbalizes understanding Insulin Types/Onset/Duration : Verbalizes understanding Medical Alert Band : Verbalizes understanding Medication Storage : Verbalizes understanding Medication Dosage/Route : Verbalizes understanding Medication Generic/Brand : Verbalizes understanding Medication Precautions : Verbalizes understanding Medication Special Administration : Verbalizes understanding Medication, Preadministration : Verbalizes understanding Monitoring Results : Verbalizes understanding Nutritional Management/Exercise : Verbalizes understanding Oral Agents : Verbalizes understanding Physical Activity : Verbalizes understanding Post-Contrast Instructions : Verbalizes understanding Preconception Care : Verbalizes understanding Management : Verbalizes understanding Psychosocial Adjustment : Verbalizes understanding Sexual Dysfunction : Verbalizes understanding Treatment Plan/Options : Verbalizes understanding Treatment/Management Goal : Verbalizes understanding Urine Ketone Monitoring : Verbalizes understanding Weight Loss : Verbalizes understanding Diabetes, Other : Verbalizes understanding LORENZO KYLE RN - 07/27/2019 12:46 EDT Education, IP Diabetes Diabetes Inpatient Education Grid New Diagnosis : Verbalizes understanding Diabetes : Verbalizes understanding Pre-Diabetes : Verbalizes understanding Gestational Diabetes : Verbalizes understanding Diabetes, Other : Verbalizes understanding LORENZO KYLE RN - 07/27/2019 12:46 EDT inpatient diabetes education grid A1C : Verbalizes understanding Exercise : Verbalizes understanding Home Blood Glucose Monitoring : Verbalizes understanding Hyperglycemia S&S Tx : Verbalizes understanding Hypoglycemia S&S Tx : Verbalizes understanding Insulin Administration : Verbalizes understanding Insulin Pump : Verbalizes understanding Meal Planning : Verbalizes understanding Medical Identification : Verbalizes understanding Medication : Verbalizes understanding Monitoring Diabetes : Verbalizes understanding Mixing insulin : Verbalizes understanding Oral Agents : Verbalizes understanding Overview of Diabetes : Verbalizes understanding Sick Days : Verbalizes understanding Smoking Cessation : Verbalizes understanding Urine Ketone Monitoring : Verbalizes understanding Diabetes Education Topics, Other : Verbalizes understanding LORENZO KYLE RN - 07/27/2019 12:46 EDT Education, Foot Care Asthma Education Grid Care : Verbalizes understanding Circulation : Verbalizes understanding Disease Process : Verbalizes understanding Footwear : Verbalizes understanding Infection Control : Verbalizes understanding Inspection : Verbalizes understanding Plan of Care : Verbalizes understanding Positioning : Verbalizes understanding Reporting : Verbalizes understanding Symptom Identification & Action Plan *Q : Verbalizes understanding Temperature : Verbalizes understanding Treatment : Verbalizes understanding Wound Care : Verbalizes understanding Ed-Foot Care, Other : Verbalizes understanding LORENZO KYLE RN - 07/27/2019 12:46 EDT documented in this encounter Plan of Treatment Not on file documented as of this encounter Visit Diagnoses Not on filedocumented in this encounter
--- OUTSIDE RECORDS SUMMARY | 2025-02-06 12:33 | XMS_ITS | Encounter Summary ---
Author Organization [employer] ([place], [place], [place], [place]) Address [address] [place] [address] Care Team Providers Care Industrial Waste Treatment Technician Name Role Phone Unavailable Primary Care Provider Unavailabl e Encounter Details Date Type Department Care Team (Late st Contact Info) Description 07/30/2019 Transcribed Document [facility] [place] Medicine [address] [place] [address] ProviderTobias MD [address] [place] [address] Social History Tobacco Use Types Packs/Day Years Used Date Smoking Tobacco: Never Assessed Sex and Gender Information Value Date Recorded Sex Assigned at Male 10/08/2021 11:56 AM CDT Legal Sex Male 6:58 PM CDT Gender Identity Male 10/08/2021 11:56 AM CDT Sexual Orientation Not on file documented as of this encounter Miscellaneous Notes * Cerner Conversion Note - Tobias ProviderMD - 07/30/2019 9:43 AM CDT Patient: AVI PHILLIPS Age: 69 years Sex: Male : 1950 Associated Diagnoses: None Author: JAZMYN RIVERO MD Basic Information No acute events overnight. No new complaints. Review of Systems Constitutional: Negative. Respiratory: Negative. Cardiovascular: Negative. Gastrointestinal: Negative. Neurologic: Negative. Health Status Allergies: Allergic Reactions (All) Severity Not Documented Lortab- No reactions were documented. Penicillin- No reactions were documented., Allergies (2) Active Reaction Lortab None Documented penicillin None Documented Current medications: (Selected) Inpatient Medications Ordered Dulera 200 mcg-5 mcg/inh inhalation aerosol: 1 Puff, Inhalation, BID Normal Saline 1,000 mL: 100 mL/Hr, IntraVENous Pepcid: 20 mg, IV Push, BID Theragran: 1 Tab, Oral, Daily Tylenol: 650 mg, Oral, Q4HInt, PRN: Pain (Mild 1-3) Zofran: 4 mg, IV Push, Q6H, PRN: Nausea allopurinol: 300 mg, Oral, Daily finasteride: 5 mg, Oral, Daily flecainide: 50 mg, Oral, Q12H hydrALAZINE: 10 mg, IV Push, Q6H, PRN: Hypertension lidocaine 5% topical film: 1 Patch, TransDermal, Daily, PRN: Pain (Mild 1-3) tamsulosin: 0.8 mg, Oral, At Bedtime traMADol: 25 mg, Oral, RT_Q6H, PRN: Pain Documented Medications Documented Breo Ellipta 200 mcg-25 mcg/inh inhalation powder: 1 Puff, Inhalation, Daily, 0 Refill(s) Claritin 10 mg oral tablet: 1 Tab, Oral, Daily, 15 Tab, 0 Refill(s) DilTIAZem Hydrochloride ER 360 mg/24 hours oral capsule, extended release: 1 Cap, Oral, Daily, 0 Refill(s) Eliquis 5 mg oral tablet: 1 Tab, Oral, BID, 60 Tab, 0 Refill(s) One A Day Men 50 Plus: 1 Tab, Oral, Daily, 0 Refill(s) allopurinol 300 mg oral tablet: 1 Tab, Oral, Daily, 0 Refill(s) bisoprolol 10 mg oral tablet: 1 Tab, Oral, Daily, 0 Refill(s) finasteride 5 mg oral tablet: 1 Tab, Oral, Daily, 0 Refill(s) flecainide 50 mg oral tablet: 1 Tab, Oral, Q12H, 60 Tab, 0 Refill(s) hydrALAZINE 25 mg oral tablet: 1 Tab, Oral, TID, 90 Tab, 0 Refill(s) lidocaine 5% topical film: 1 Patch, TransDermal, Daily, apply to affected area as directed; remove patches after 12 hours, PRN: for pain, 0 Refill(s) lisinopril 40 mg oral tablet: 1 Tab, Oral, BID, 0 Refill(s) potassium chloride 10 mEq oral tablet, extended release: 2 Tab, Oral, Daily, 0 Refill(s) spironolactone 25 mg oral tablet: 1 Tab, Oral, Daily, 30 Tab, 0 Refill(s) tamsulosin 0.4 mg oral capsule: 2 Cap, Oral, At Bedtime, 0 Refill(s) torsemide 20 mg oral tablet: 1 Tab, Oral, Daily, 0 Refill(s), Medications (13) Active Scheduled: (7) allopurinol 300 mg tab 300 mg 1 Tab, Oral, Daily famotidine 20 mg/2 mL inj 20 mg 2 mL, IV Push, BID finasteride 5 mg tab 5 mg 1 Tab, Oral, Daily flecainide acetate 100 mg tab 50 mg 0.5 Tab, Oral, Q12H mometasone/formoterol 200/5 mcg inh 1 Puff, Inhalation, BID multiple vitamin (Thera) tab 1 Tab, Oral, Daily tamsulosin CR 0.4 mg cap 0.8 mg 2 Cap, Oral, At Bedtime Continuous: (1) NaCl 0.9% 1,000 mL 1,000 mL, IntraVENous, 100 mL/Hr PRN: (5) acetaminophen 325 mg tab 650 mg 2 Tab, Oral, Q4HInt hydrALAZINE 20 mg/1 mL inj 10 mg 0.5 mL, IV Push, Q6H lidocaine 4% patch 1 Patch, TransDermal, Daily ondansetron 4 mg/2 mL inj 4 mg 2 mL, IV Push, Q6H traMADol 50 mg tab 25 mg 0.5 Tab, Oral, RT_Q6H Problem list: Medical At risk for sleep apnea / IMO [id number] / Confirmed, Active Problems (8) Allergic rhinitis Arthritis At risk for sleep apnea Atrial fibrillation Cataract Gout Hyperlipidemia Hypertension Physical Examination VS/Measurements Vitals Signs (last 24 hrs) Last Charted Minimum Maximum Temp 98.4 (JUL 29 05:21) 98 (JUL 29 01:37) 98.5 (JUL 28 11:00) Mon HR 84 (JUL 29 08:11) 37 (JUL 29 05:21) 86 (JUL 28 21:21) Resp Rate 18 (JUL 29 05:) 15 (JUL 28 18:00) 18 (JUL 28:21) SBP H 151 (JUL 29 05:) 140 (JUL 28 16:10) H 161 (JUL 29 01:37) DBP H 105 (JUL 29 05:21) H 94 (JUL 28 11:00) H 105 (JUL 29 05:21) MAP 123 (JUL 29 05:21) 108 (JUL 28 11:00) 123 (JUL 29 05:21) SpO2 96 (JUL 29 08:11) 95 (JUL 29 05:21) 96 (JUL 28 11:00) Gen: Alert and oriented. NAD HEENT : NC/AT Neck: Supple, No JVD LUngs : CTA bilaterally. Non labored respiration CVS: RRR, No murmur Abd: SOft, Non tender, Obese, BS+ Ext: No edema, no cyanosis SCIENTIFIC PROGRAMMER ANALYST: no focal deficit noted. Alert. Review / Management Results review: Labs (Last four charted values) WBC 7.1 (JUL 27) H 11.0 (JUL 26) H 12.0 (JUL 26) HB L 9.6 (JUL 18) L 10.7 (JUL 26) L 11.8 (JUL 26) HCT L 28.9 (JUL 18) L 32.1 (JUL 26) L 35.4 (JUL 26) Plt L 152 (JUL 27) 176 (JUL 26) 176 (JUL 26) Na 138 (JUL 20) 141 (JUL 28) 144 (JUL 18) 145 (JUL 17) K 4.3 (JUL 20) 4.5 (JUL 28) 4.5 (JUL 18) 4.9 (JUL 26) Cl 109 (JUL 29) 112 (JUL 28) H 117 (JUL 18) H 120 (JUL 17) CO2 24 (JUL 20) 24 (JUL 28) 24 (JUL 18) L 18 (JUL 17) BUN H 25 (JUL 29) H 33 (JUL 28) H 60 (JUL 18) C 85 (JUL 17) Cr 1.30 (JUL 20) H 1.40 (JUL 19) H 1.90 (JUL 18) H 3.60 (JUL 17) Glu R 84 (JUL 20) 96 (JUL 19) 98 (JUL 18) 95 (JUL 17) Ca 9.2 (JUL 20) 9.0 (JUL 19) 8.9 (JUL 18) 9.7 (JUL 17) Lactic 1.0 (JUL 17) PT 10.7 (JUL 17) INR 1.0 (JUL 17) AST 19 (JUL 20) 22 (JUL 19) 27 (JUL 18) 31 (JUL 17) ALT L 15 (JUL 29) 18 (JUL 28) 17 (JUL 27) 19 (JUL 26) ALK P 60 (JUL 29) 60 (JUL 28) 59 (JUL 27) 67 (JUL 26) T Bili 0.7 (JUL 29) 0.3 (JUL 28) 0.3 (JUL 27) 0.5 (JUL 26) PTN L 6.3 (JUL 29) 6.7 (JUL 28) 6.5 (JUL 27) 7.3 (JUL 26) ALB L 2.6 (JUL 29) L 2.7 (JUL 28) L 2.7 (JUL 27) L 3.2 (JUL 26) . JUL 29 03:04 138 109 H 25 / 84 4.3 24 1.30 \ Impression and Plan Dx and Plan 1- HALLIE on CKD stage III - Non-oliguric - pre-renal azotemia likely improved with IV hydration. Improving. Urine P/C ratio 0.36 only 2- Hyperkalemia - medication and HALLIE - resolved. 3- Mild metabolic acidosis - improved. 4- Anemia - stable. 5- CKD stage III - baseline 1.6-1.9 range. 6- Chronic afib 7- Hx of left renal mass - urology input appreciated. 8- Gross hematuria - Urology following. Plan: - Continue with current. - Avoid nephrotoxic agents. - Renal diet. - Adjust meds per renal function Follow up with [facility] in 2-3 weeks with renal function panel, cbc and UA 1 week prior to appointment. documented in this encounter Plan of Treatment Not on file documented as of this encounter Visit Diagnoses Not on filedocumented in this encounter
--- OUTSIDE RECORDS SUMMARY | 2025-02-06 12:33 | XMS_ITS | Encounter Summary ---
Author Organization [employer] ([place], [place], [place], [place]) Address [address] [place] [address] Care Team Providers Care Farm Tractor Operator Name Role Phone Unavailable Primary Care Provider Unavailabl e Encounter Details Date Type Department Care Team (Late st Contact Info) Description 08/01/2019 Transcribed Document [facility] [place] Family Medicine [address] [place] [address] ProviderTobias MD [address] [place] [address] Social History Tobacco Use Types Packs/Day Years Used Date Smoking Tobacco: Never Assessed Sex and Gender Information Value Date Recorded Sex Assigned at Male 10/08/2021 11:56 AM CDT Legal Sex Male 6:58 PM CDT Gender Identity Male 10/08/2021 11:56 AM CDT Sexual Orientation Not on file documented as of this encounter Miscellaneous Notes * Cerner Conversion Note - Historical ProviderMD - 08/01/2019 2:00 AM CDT Public Works Inspector Details Entered On: 08/01/2019 1:03 EDT Performed On: 08/01/2019 2:00 EDT by Winnie Jaimes RN Order Details Transport Mode Order Detail : Bed (including specialty) Isolation Precautions Order Detail : Standard Precautions Order Detail : N/A IV Order Detail : 1 Oxygen Order Detail : 0 Nurse Collect Order Detail : 0 Lift/Transfer : Moderate assist Central Line Order Detail : No Room Service : Not Appropriate Arterial Line : No Winnie Jaimes RN - 08/01/2019 1:03 EDT Electronically signed by Millie Sebastian Conversion Formation Fracturing Operator Cerner at 07/26/2022 6:25 PM CDT documented in this encounter Plan of Treatment Not on file documented as of this encounter Visit Diagnoses Not on filedocumented in this encounter
--- OUTSIDE RECORDS SUMMARY | 2025-02-06 12:33 | XMS_ITS | Encounter Summary ---
Author Organization [employer] ([place], [place], [place], [place]) Address [address] [place] [address] Care Team Providers Care Steam Plant Control Room Operator Name Role Phone Unavailable Primary Care Provider Unavailabl e Encounter Details Date Type Department Care Team (Late st Contact Info) Description 07/30/2019 Transcribed Document [facility] [place] Family Medicine [address] [place] [address] ProviderTobias MD [address] [place] [address] Social History Tobacco Use Types [...] Conversion Note - Historical ProviderMD - 07/30/2019 12:56 PM CDT Patient: AVI SKY Age: 69 Years Sex: Male : 1950 Subjective Patient doing well denies any new complains, hemodynamically stable. Vital Signs T: 36.8 ??C TMIN: 36.7 ??C TMAX: 36.9 ??C HR: 84(Monitored) RR: 18 BP: 154/81 SpO2: 96% Oxygen Settings (Last) Oxygen Therapy Mode: Room air (07/30/19 08:11:00) Intake & Output Totals Last 24 Hours (7a-7a) Input Total: 854 mL Output Total: 2700 mL Balance: -1846 mL Physical Exam General: no acute distress. Respiratory: Respirations are non-labored, Symmetrical chest wall expansion, No chest wall tenderness. Cardiovascular: Normal rate, Regular rhythm. Gastrointestinal: Non-distended, No hernias noted, Musculoskeletal: no deformity, active arthritis or joint swelling. Neurologic: Alert, No focal deficits, Assessment/Plan Sinus bradycardia, 2/2 hyperkalemia/ARF - HR initially in 30s, improved to 70s NSR w/ correction of K - initial potassium 7.4 at OSH, improved to normal now, w/ tx - nephrology consulted, continue to monitor on IVF. - Continue to have episodes of bradycardia in the 40s (not documented). - Will consult EP. Acute kidney injury on CKD3, likely prerenal/Left renal Mass/hematuria - baseline Cr 1.6-1.9 per records. Cr 5.3 on presentation, now normalized. - avoid nephrotoxic agents, trend renal indices. - CT abdomen/pelvis showed exophytic mass in the lower pole of the left kidney, he has hx of this L renal mass, urology recommends not urgent procedures. will follow up as an outpatient. - Flushing the catheter prn basis for clots. No hematuria noted, will DC Pa. - Restarted on home finasteride and Flomax. - Continue to hold diuretics and lisinopril. Chronic atrial fibrillation - on Eliquis, currently on hold due to hematuria. - BB/CCB and fleccainide held for hypotension/bradycardia. - EP consulted. - low TSH on admission will check Free T4 Hypertension - hold home Meds in light of recent hypotension and bradycardia. - HR and BP now normal. Disposition: Patient reportedly confused, currently doing well. He has a sitter, OT recommends dc to rehab, will consult CM regarding this. VTE Prophylaxis - Medical Sequential Compression Device Start: 07/27/19 1:12:00 EDT, Bilateral, Length: Knee High, While patient is in bed, Continuous Order (LAN GARCIA) Medications allopurinol, 300 mg= 1 Tab, Oral, Daily Dulera 200 mcg-5 mcg/inh inhalation aerosol, 1 Puff, Inhalation, BID finasteride, 5 mg= 1 Tab, Oral, Daily flecainide, 50 mg= 0.5 Tab, Oral, Q12H hydrALAZINE, 10 mg= 0.5 mL, IV Push, Q6H, PRN lidocaine 5% topical film, 1 Patch, TransDermal, Daily, PRN Normal Saline 1,000 mL, 1000 mL, IntraVENous Pepcid, 20 mg= 2 mL, IV Push, BID tamsulosin, 0.8 mg= 2 Cap, Oral, At Bedtime Theragran, 1 Tab, Oral, Daily traMADol, 25 mg= 0.5 Tab, Oral, RT_Q6H, PRN Tylenol, 650 mg= 2 Tab, Oral, Q4HInt, PRN Zofran, 4 mg= 2 mL, IV Push, Q6H, PRN Lab Results Test Name Test Result Date/Time Sodium Level 138 mmol/L 07/30/2019 03:04 EDT Potassium Level 4.3 mmol/L 07/30/2019 03:04 EDT Chloride Level 109 mmol/L 07/30/2019 03:04 EDT Carbon Dioxide Level 24 mmol/L 07/30/2019 03:04 EDT Anion Gap 9 07/30/2019 03:04 EDT Glucose Level 84 mg/dL 07/30/2019 03:04 EDT Blood Urea Nitrogen 25 mg/dL (High) 07/30/2019 03:04 EDT Creatinine Level 1.30 mg/dL 07/30/2019 03:04 EDT eGFR >60 mL/min/1.73m2 07/30/2019 03:04 EDT eGFR NonAfrican 55 mL/min/1.73m2 (Low) 07/30/2019 03:04 EDT Bun/Creatinine 19.2 07/30/2019 03:04 EDT Calcium Level 9.2 mg/dL 07/30/2019 03:04 EDT Protein Total 6.3 Gram/dL (Low) 07/30/2019 03:04 EDT Albumin Level 2.6 Gram/dL (Low) 07/30/2019 03:04 EDT Globulin 3.7 Gram/dL 07/30/2019 03:04 EDT A/G Ratio 0.7 (Low) 07/30/2019 03:04 EDT Bilirubin Total 0.7 mg/dL 07/30/2019 03:04 EDT Alk Phos 60 Units/Liter 07/30/2019 03:04 EDT AST 19 Units/Liter 07/30/2019 03:04 EDT ALT 15 Units/Liter (Low) 07/30/2019 03:04 EDT Device Comment 1 Notified Nurse RBV 07/30/2019 00:02 EDT Device Comment 1 Notified MD RBV 07/29/2019 16:03 EDT Glucose POC2 91 mg/dL 07/30/2019 00:02 EDT Glucose POC2 101 mg/dL 07/29/2019 16:03 EDT Electronically signed by Millie Sebastian Conversion Medical Laboratory Specialist Cerner at 07/26/2022 6:18 PM CDT documented in this encounter Plan of Treatment Not on file documented as of this encounter Visit Diagnoses Not on filedocumented in this encounter
--- OUTSIDE RECORDS SUMMARY | 2025-02-06 12:33 | XMS_ITS | Encounter Summary ---
Author Organization [employer] ([place], [place], [place], [place]) Address [address] [place] [address] Care Team Providers Care Technical Sales Engineer Name Role Phone Unavailable Primary Care Provider Unavailabl e Encounter Details Date Type Department Care Team (Late st Contact Info) Description 07/27/2019 Transcribed Document [facility] [place] [facility] [place] [address] [place] [address] ProviderTobias MD [address] [place] [address] Social History Tobacco Use Types [...] ProviderMD - 07/27/2019 12:53 PM CDT Evaluation, Occupational Therapy Entered On: 07/28/2019 11:49 EDT Performed On: 07/28/2019 11:30 EDT by GOLD HODGES OTR/Jabier General Information, OT Therapy Diagnosis, OT : Decreased I/ADL status; functional mobility Onset of Problem, OT : 07/27/2019 EDT Co-treated by, OT : Physical Therapist Precautions in Place : Fall prevention measures General Information Comment, OT : Patient presents with weakness, bradycardia, hematuria, and CKD. GOLD HODGES OTR/L - 07/28/2019 12:50 EDT Visit Type, OT : Initial evaluation GOLD HODGES OTR/L - 07/28/2019 11:49 EDT Patient Orders : Order Date Order Ordering 07/27/2019 12:53 Consult to Occupational Therapy Ordered By: ARNOLDO VALLADARES MD-INT Active Diagnoses : No Qualifying Diagnoses Admission Date : 07/27/2019 00:54 Personal Devices : Personal Devices No Devices Recorded Assistive Devices : Assistive Devices No Devices Recorded GOLD HODGES OTR/Jabier - 07/28/2019 13:12 EDT General Status Patient Received Status : Supine in bed Treatment Start Time : 07/28/2019 11:12 EDT Patient Left Status : Supine in bed, Sitter at bedside, All needs met and within reach Treatment End Time : 07/28/2019 11:30 EDT Treatment Time : 18 Minute(s) GOLD HODGES OTR/Jabier - 07/28/2019 12:50 EDT History and Environment, OT Living Situation, Therapy : Home Patient Lives With : Spouse Persons Assisting Patient at Home : Alone Professional Skilled Services : None Home Equipment, Therapy : Cane, Shower Equipment, Walker Cane : Cane, single point Shower Equipment : Shower bench, with back Walker : Walker, front wheel Home Setup : One story GOLD HODGES OTR/Jabier - 07/28/2019 12:50 EDT Prior LOF Bathing, OT : Assist needed Prior LOF Bed Mobility : Assist needed Prior LOF Upper Body Dressing, OT : Assist needed Prior LOF Lower Body Dressing, OT : Assist needed Prior LOF Toileting : Assist needed Prior LOF Transfer : Assist needed Prior LOF Grooming, OT : Assist needed Prior LOF for IADLs, OT : Assist needed GOLD HODGES OTR/Jabier - 07/28/2019 12:50 EDT Prior LOF for IADLs, OT : assits PRN GOLD HODGES OTR/Jabier - 07/28/2019 12:50 EDT Upper Extremity Right UE Active ROM : WFL Right UE Strength : WFL Left UE Active ROM : WFL Left UE Strength : WFL Upper Extremity Strength Impaired : No Right UE Strength : WFL Left UE Strength : WFL GOLD HODGES OTR/Jabier - 07/28/2019 12:50 EDT Self Care/Home Management, OT Self Feeding Assist Level, OT : Independent, complete Grooming Assist Level, OT : Independent, complete Bathing Assist Level, OT : Assist, moderate Upper Body Dressing Assist Level, OT : Independent, complete Lower Body Dressing Assist Level, OT : Assist, maximal Toileting Assist Level : Assist, moderate Toilet Transfer Assist Level : Assist, minimal GOLD HODGES OTR/L - 07/28/2019 12:50 EDT Functional Mobility Mobility Grid Bed Roll Left : Rehab Minimal assistance Bed Roll Right : Rehab Minimal assistance Bed Scooting : Rehab Minimal assistance Supine to Sit : Rehab Minimal assistance Sit to Stand : Rehab Minimal assistance Bed to Chair : Rehab Minimal assistance Chair to Bed : Rehab Minimal assistance Stand to Sit : Rehab Minimal assistance Sit to Supine : Rehab Moderate assistance GOLD HODGES OTR/L - 07/28/2019 12:50 EDT Cognition Assessment, OT Orientation : Oriented x 4 Cognition Assessment, OT : Intact Comprehension Assessment, OT : Intact GOLD HODGES OTR/L - 07/28/2019 12:50 EDT Indication Assessment, OT Occupational Therapy Indicated : Yes Problem List, OT : Impaired, bed mobility, Impaired, activities daily living, Impaired, endurance tolerance, Impaired functional mobility, Impaired, standing balance, Impaired, strength, Impaired, transfers GOLD HODGES OTR/L - 07/28/2019 12:50 EDT Plan of Care, OT OT Tx Plan/Goals Established w Patient : Yes OT Frequency Rehab : Five days per week OT Duration Rehab : Fourteen days OT Treatments Planned : Activities of daily living, Balance training, Functional mobility training, Safety education, Therapeutic activities, Therapeutic exercises Plan of Care Comment, OT : see goals GOLD HODGES OTR/L - 07/28/2019 12:50 EDT Criminal Justice Faculty Goals, OT Dressing, Lower Body LTG Grid Goal #1 Activity : Dressing, Lower Body Assist : Assist, moderate Date to Meet : 08/11/2019 EDT Goal Status : Initial goal GOLD HDOGES OTR/L - 07/28/2019 12:50 EDT Toileting LTG Grid Goal #1 Activity : Toileting Assist : Assist, minimal Date to Meet : 08/11/2019 EDT Goal Status : Initial goal GOLD HODGES OTR/L - 07/28/2019 12:50 EDT Toilet Transfer LTG Grid Goal #1 Activity : Toilet Transfer, Ambulatory Assist : Supervision or set up Date to Meet : 08/11/2019 EDT Goal Status : Initial goal GOLD HODGESYAAKOV/L - 07/28/2019 12:50 EDT Bed Mobility/ Bed Transfer LTG Grid Goal #1 Activity : Bed Mobility/Bed Transfer Assist : Independent, modified Date to Meet : 08/11/2019 EDT Goal Status : Initial goal GOLD HODGESYAAKOV/L - 07/28/2019 12:50 EDT Treatment Note Subjective Comment : Patient and RN okd OT this date. Patient's Response to Treatment : Pt tolerated OT fair. Pt c/o pain at B hips of 11/18. Additional Objective Information : Patinet supine in bed upon OT arrival. Pt sat EOB with Min A. Pt stood with Min A. Pt performed additional sit to stand for use of bedpan with Min A. Pt side stepped to HOB with Min A. Pt got back to bed with Mod A for LE. Pt was left in bed with call light/phone within reach. Sitter present. Assessment : Pt would benefit from OT to increase functional status. Plan for Treatment : Continue with pts POC per pt tolerance. GOLD HODGES OTR/Jabier - 07/28/2019 12:50 EDT Pain Assessment Pain Scaled Used : 0-10 Pain scale Pain Score Pre-Intervention : 8 Pain Score During-Intervention : 8 Pain Score Post-Intervention. : 8 Location : Legs, bilateral VICKY HODGESYAAKOV COATES/Jabier - 07/28/2019 12:50 EDT Image 1 - Images currently included in the form version of this document have not been included in the text rendition version of the form. Anticipated Discharge Needs, OT/PT Anticipated Discharge to : Unit, rehabilitation, Unit, custodial Recommend Continued Therapy at Discharge : Yes GOLD HODGES OTR/Jabier - 07/28/2019 12:50 EDT [facility] OT Charges OT Eval Moderate Complexity : 1 GOLD HODGES OTR/Jabier - 07/28/2019 12:50 EDT documented in this encounter Plan of Treatment Not on file documented as of this encounter Visit Diagnoses Not on filedocumented in this encounter
--- OUTSIDE RECORDS SUMMARY | 2025-02-06 12:33 | XMS_ITS | Encounter Summary ---
Author Organization [employer] ([place], [place], [place], [place]) Address [address] [place] [address] Care Team Providers Care Singer And Unloader Name Role Phone Unavailable Primary Care Provider Unavailabl e Encounter Details Date Type Department Care Team (Late st Contact Info) Description 07/27/2019 Transcribed Document [facility] [place] [address] [place] [address] ProviderTobias MD [address] [place], [place] [id number] Social History Tobacco Use Types Packs/Day Years Used Date Smoking Tobacco: Never Assessed Sex and Gender Information Value Date Recorded Sex Assigned at Male 10/08/2021 11:56 AM CDT Legal Sex Male 6:58 PM CDT Gender Identity Male 10/08/2021 11:56 AM CDT Sexual Orientation Not on file documented as of this encounter Miscellaneous Notes * Cerner Conversion Note - Historical ProviderMD - 07/27/2019 9:12 AM CDT UM Authorization Entered On: 07/27/2019 9:12 EDT Performed On: 07/27/2019 9:12 EDT by THIERNO ZHOU RN Primary Insurance Authorization Authorization and Policy Numbers : Insurance 1 Health Plan: [employer] P[employer] Policy Number: [id number] Authorization Number: Insurance Primary Name : [employer] PPO Policy Number: [id number] Authorized Service Begin Date-Primary : 07/26/2019 EDT Historical Authorization Comments-Primary : No Authorization Comments Found THIERNO ZHOU RN - 07/27/2019 9:12 EDT Electronically signed by Romulo [facility] Conversion Recruiting Specialist Cerner at 07/26/2022 6:28 PM CDT documented in this encounter Plan of Treatment Not on file documented as of this encounter Visit Diagnoses Not on filedocumented in this encounter
--- OUTSIDE RECORDS SUMMARY | 2025-02-06 12:33 | XMS_ITS | Encounter Summary ---
Author Organization [employer] ([place], [place], [place], [place]) Address [address] [place] [address] Care Team Providers Care Logistics Tech Name Role Phone Unavailable Primary Care Provider Unavailabl e Encounter Details Date Type Department Care Team (Late st Contact Info) Description 08/01/2019 Transcribed Document [facility] [place] Family Medicine [address] [place] [address] ProviderTobias MD [address] [place] [address] Social History Tobacco Use Types [...] Conversion Note - Historical ProviderMD - 08/01/2019 10:12 AM CDT Patient: AVI PHILLIPS Age: 69 Years Sex: Male : 1950 Subjective Chief Complaint: No complaints, sitting up in chair Physical Exam (1, 6, 12) General: [Alert and oriented, well nourished, no acute distress]. Neurologic: [Awake, alert, and oriented X3, CN II-XII intact]. Eye: [PERRL, EOMI, normal conjunctiva]. HENT: [Normocephalic, clear tympanic membranes, normal hearing, moist oral mucosa, no scleral icterus, no sinus tenderness]. Neck: [Supple, non-tender, no carotid bruits, no JVD, no lymphadenopathy]. Lungs: [Clear to auscultation and percussion, non-labored respiration]. Heart: [Normal rate, regular rhythm, no murmur, gallop or edema]. Abdomen: [Soft, non-tender, non-distended, normal bowel sounds, no masses]. Musculoskeletal: [Normal range of motion and strength, no tenderness or swelling]. Skin: [Skin is warm, dry and pink, no rashes or lesions]. Psychiatric: [Cooperative, appropriate mood and affect]. Vitals & Measurements T: 36.7 ??C TMIN: 36.4 ??C TMAX: 36.8 ??C HR: 84 RR: 16 BP: 147/92 SpO2: 96% Intake & Output Intake & Output Totals Last 24 Hours (7a-7a) Intake (3 Events) Medications (4 mL) Oral Intake (250 mL) Output (5 Events) Urine Voided (Volume) (1625 mL) Input Total: 254 mL Output Total: 1625 mL Balance: -1371 mL Assessment/Plan 1. Sick sinus syndrome, moderately severe sinus bradycardia that has been persistent, now resolved 2. Multiple ventricular ectopic beats. much improved 3. History of atrial fibrillation, resume Diltiazem and Bisoprolol to avoid rebound tachycardia 4. Hematuria, resolved. 5. Borderline hyperthyroidism. Plan: His rate has improved, no further bradycardia seen on monitor even after home medications at lower dose resumed, will continue these medication, will start him on Eliquis 2.5mg bid if ok with Urology, his hyperthyroidism should be worked up with PCP, follow up in our office 1 month Medications Inpatient allopurinol, 300 mg= 1 Tab, Oral, Daily bisoprolol, 5 mg= 1 Tab, Oral, Daily dilTIAZem, 240 mg= 1 Cap, Oral, Daily Dulera 200 mcg-5 mcg/inh inhalation aerosol, 1 Puff, Inhalation, BID finasteride, 5 mg= 1 Tab, Oral, Daily flecainide, 50 mg= 0.5 Tab, Oral, Q12H hydrALAZINE, 10 mg= 0.5 mL, IV Push, Q6H, PRN lidocaine 5% topical film, 1 Patch, TransDermal, Daily, PRN Pepcid, 20 mg= 2 mL, IV Push, BID tamsulosin, 0.8 mg= 2 Cap, Oral, At Bedtime Theragran, 1 Tab, Oral, Daily traMADol, 25 mg= 0.5 Tab, Oral, RT_Q6H, PRN Tylenol, 650 mg= 2 Tab, Oral, Q4HInt, PRN Zofran, 4 mg= 2 mL, IV Push, Q6H, PRN Home allopurinol 300 mg oral tablet, 300 mg= 1 Tab, Oral, Daily bisoprolol 10 mg oral tablet, 10 mg= 1 Tab, Oral, Daily Breo Ellipta 200 mcg-25 mcg/inh inhalation powder, 1 Puff, Inhalation, Daily Claritin 10 mg oral tablet, 10 mg= 1 Tab, Oral, Daily DilTIAZem Hydrochloride ER 360 mg/24 hours oral capsule, extended release, 360 mg= 1 Cap, Oral, Daily Eliquis 5 mg oral tablet, 5 mg= 1 Tab, Oral, BID finasteride 5 mg oral tablet, 5 mg= 1 Tab, Oral, Daily flecainide 50 mg oral tablet, 50 mg= 1 Tab, Oral, Q12H hydrALAZINE 25 mg oral tablet, 25 mg= 1 Tab, Oral, TID lidocaine 5% topical film, 1 Patch, TransDermal, Daily, PRN lisinopril 40 mg oral tablet, 40 mg= 1 Tab, Oral, BID One A Day Men 50 Plus, 1 Tab, Oral, Daily potassium chloride 10 mEq oral tablet, extended release, 20 mEq= 2 Tab, Oral, Daily spironolactone 25 mg oral tablet, 25 mg= 1 Tab, Oral, Daily tamsulosin 0.4 mg oral capsule, 0.8 mg= 2 Cap, Oral, At Bedtime torsemide 20 mg oral tablet, 20 mg= 1 Tab, Oral, Daily Lab Results JUL 27 02:44 \ L 9.6 / 7.1 L 152 / L 28.9 \ Diagnostic Results EKG [facility] 95 documented in this encounter Plan of Treatment Not on file documented as of this encounter Visit Diagnoses Not on filedocumented in this encounter
--- OUTSIDE RECORDS SUMMARY | 2025-02-06 12:33 | XMS_ITS | Encounter Summary ---
Author Organization [employer] ([place], [place], [place], [place]) Address [address] [place] [address] Care Team Providers Care Lubrication Worker Name Role Phone Unavailable Primary Care Provider Unavailabl e Encounter Details Date Type Department Care Team (Late st Contact Info) Description 07/28/2019 Transcribed Document [facility] [place] [address] [place] [address] ProviderTobias MD [address] [place] [address] Social History Tobacco Use Types Packs/Day Years Used Date Smoking Tobacco: Never Assessed Sex and Gender Information Value Date Recorded Sex Assigned at Male 10/08/2021 11:56 AM CDT Legal Sex Male 6:58 PM CDT Gender Identity Male 10/08/2021 11:56 AM CDT Sexual Orientation Not on file documented as of this encounter Miscellaneous Notes * Cerner Conversion Note - Historical ProviderMD - 07/28/2019 12:53 PM CDT Patient: AVI PHILLIPS Age: 69 Years Sex: Male : 1950 Subjective Patient doing well denies any new complains now overnight issues. Vital Signs T: 36.8 ??C TMIN: 36.7 ??C TMAX: 37 ??C HR: 84(Monitored) RR: 19 BP: 127/83 SpO2: 96% Oxygen Settings (Last) Oxygen Therapy Mode: Room air (07/28/19 09:40:00) Intake & Output Totals Last 24 Hours (7a-7a) Input Total: 1924 mL Output Total: 3200 mL Balance: -1276 mL Physical Exam General: no acute distress. [...] nephrology consulted, continue to monitor on IVF. Acute kidney injury on CKD3, likely prerenal/Left renal Mass/hematuria - baseline Cr 1.6-1.9 per records. Cr 5.3 on presentation, improving w/ IVF - avoid nephrotoxic agents, trend renal indices - IVF - CT abdomen/pelvis showed exophytic mass in the lower pole of the left kidney, he has hx of this L renal mass, urology recommends not urgent procedures. - Flushing the catheter prn basis for clots. - Restarted on home finasteride and Flomax. - Continue to hold diuretics and lisinopril. Chronic atrial fibrillation - on Eliquis, currently on hold due to hematuria. - BB/CCB and flecainide held for hypotension/bradycardia. Hypertension - hold home meds in light of recent hypotension and bradycardia. - HR and BP now normal. VTE Prophylaxis - Medical Sequential Compression Device Start: 07/27/19 1:12:00 EDT, Bilateral, Length: Knee High, While patient is in bed, Continuous Order (LAN GARCIA) Medications allopurinol, 300 mg= 1 Tab, Oral, Daily finasteride, 5 mg= 1 Tab, Oral, Daily hydrALAZINE, 10 mg= 0.5 mL, IV Push, Q6H, PRN lidocaine 5% topical film, 1 Patch, TransDermal, Daily, PRN Normal Saline 1,000 mL, 1000 mL, IntraVENous Pepcid, 20 mg= 2 mL, IV Push, BID tamsulosin, 0.8 mg= 2 Cap, Oral, At Bedtime traMADol, 25 mg= 0.5 Tab, Oral, RT_Q6H, PRN Tylenol, 650 mg= 2 Tab, Oral, Q4HInt, PRN Zofran, 4 mg= 2 mL, IV Push, Q6H, PRN Lab Results Test Name Test Result Date/Time Sodium Level 144 mmol/L 07/28/2019 02:44 EDT Potassium Level 4.5 mmol/L 07/28/2019 02:44 EDT Potassium Level 4.9 mmol/L 07/27/2019 15:33 EDT Chloride Level 117 mmol/L (High) 07/28/2019 02:44 EDT Carbon Dioxide Level 24 mmol/L 07/28/2019 02:44 EDT Anion Gap 8 (Low) 07/28/2019 02:44 EDT Glucose Level 98 mg/dL 07/28/2019 02:44 EDT Blood Urea Nitrogen 60 mg/dL (High) 07/28/2019 02:44 EDT Creatinine Level 1.90 mg/dL (High) 07/28/2019 02:44 EDT eGFR 43 mL/min/1.73m2 (Low) 07/28/2019 02:44 EDT eGFR NonAfrican 35 mL/min/1.73m2 (Low) 07/28/2019 02:44 EDT Bun/Creatinine 31.6 (High) 07/28/2019 02:44 EDT Calcium Level 8.9 mg/dL 07/28/2019 02:44 EDT Protein Total 6.5 Gram/dL 07/28/2019 02:44 EDT Albumin Level 2.7 Gram/dL (Low) 07/28/2019 02:44 EDT Globulin 3.8 Gram/dL 07/28/2019 02:44 EDT A/G Ratio 0.7 (Low) 07/28/2019 02:44 EDT Bilirubin Total 0.3 mg/dL 07/28/2019 02:44 EDT Alk Phos 59 Units/Liter 07/28/2019 02:44 EDT AST 27 Units/Liter 07/28/2019 02:44 EDT ALT 17 Units/Liter 07/28/2019 02:44 EDT Magnesium Level 2.0 mg/dL 07/28/2019 02:44 EDT Phosphorus 3.6 mg/dL 07/28/2019 02:44 EDT Glucose POC2 82 mg/dL 07/27/2019 17:41 EDT WBC 7.1 K/uL 07/28/2019 02:44 EDT RBC 2.92 Million/uL (Low) 07/28/2019 02:44 EDT Hgb 9.6 g/dL (Low) 07/28/2019 02:44 EDT Hct 28.9 % (Low) 07/28/2019 02:44 EDT MCV 99.0 fL (High) 07/28/2019 02:44 EDT MCH 32.9 pg (High) 07/28/2019 02:44 EDT MCHC 33.2 Gram/dL 07/28/2019 02:44 EDT Platelet Count 152 K/uL (Low) 07/28/2019 02:44 EDT MPV 10.7 fL 07/28/2019 02:44 EDT RDW 15.1 % (High) 07/28/2019 02:44 EDT Neut % 65.1 % 07/28/2019 02:44 EDT Neut # 4.64 K/uL 07/28/2019 02:44 EDT Lymph % 22.2 % 07/28/2019 02:44 EDT Lymph # 1.58 x10(3)/uL 07/28/2019 02:44 EDT [place] % 10.5 % (High) 07/28/2019 02:44 EDT [place] # 0.75 K/uL 07/28/2019 02:44 EDT Eos % 1.5 % 07/28/2019 02:44 EDT Eos # 0.11 x10(3)/uL 07/28/2019 02:44 EDT Baso % 0.4 % 07/28/2019 02:44 EDT Baso # 0.03 x10(3)/uL 07/28/2019 02:44 EDT Slide Review No 07/28/2019 02:44 EDT IG# 0.02 x10(3)/uL 07/28/2019 02:44 EDT IG% 0.30 % 07/28/2019 02:44 EDT documented in this encounter Plan of Treatment Not on file documented as of this encounter Visit Diagnoses Not on filedocumented in this encounter
--- OUTSIDE RECORDS SUMMARY | 2025-02-06 12:33 | XMS_ITS | Encounter Summary ---
Author Organization [employer] ([place], [place], [place], [place]) Address [address] [place] [address] Care Team Providers Care Foxing Painter Name Role Phone Unavailable Primary Care Provider Unavailabl e Encounter Details Date Type Department Care Team (Late st Contact Info) Description 07/27/2019 Transcribed Document [facility] [place] [address] [place] [address] ProviderTobias MD [address] [place] [address] Social History Tobacco Use Types [...] Conversion Note - Historical ProviderMD - 07/27/2019 5:00 PM CDT Chart Check - Review Order Profile Entered On: 07/27/2019 15:57 EDT Performed On: 07/27/2019 17:00 EDT by LORENZO KYLE RN Chart Check Powerplans Initiated/Discontinued as Appropriate : Yes All Active Orders Reviewed : Yes LORENZO KYLE RN - 07/27/2019 15:57 EDT documented in this encounter Plan of Treatment Not on file documented as of this encounter Visit Diagnoses Not on filedocumented in this encounter
--- OUTSIDE RECORDS SUMMARY | 2025-02-06 12:33 | XMS_ITS | Encounter Summary ---
Author Organization [employer] ([place], [place], [place], [place]) Address [address] [place] [address] Care Team Providers Care Technical Delivery Manager Name Role Phone Unavailable Primary Care Provider Unavailabl e Encounter Details Date Type Department Care Team (Late st Contact Info) Description 07/27/[address] [facility] [place] Family Medicine [address] [place] [address] ProviderTobias MD [address] [place] [address] Social History Tobacco Use Types [...] Conversion Note - Historical ProviderMD - 07/27/2019 5:32 AM CDT Nutrition Assessment Entered On: 07/27/2019 11:37 EDT Performed On: 07/27/2019 11:35 EDT by [address]IO CAMARENA RD, LD Nutrition Assessment Nutrition Assessment Reason : Automatic referral MACARIO CAMARENA RD, LD - 07/27/2019 11:35 EDT Nutrition Recommendations Dietitian Recommendations : 07/26: Rec'd consult for MST >2 (unsure weight loss). Unable to speak with pt during visit and no recent weight history in chart to confirm weight changes. Currently NPO for workup. Admitted with hyperkalemia- no need for SEWING MACHINE OPERATOR SEMIAUTOMATIC per Nephrology. Pt with SKI on CKD3. LBM 07/26. Recommend advancing to Pre-Dialysis diet (+Low Potassium restriction). No specific nutrition dx at this time, RD will rescreen in 3-4 days to check on po intake. MACARIO CAMARENA RD, LD - 07/27/2019 11:35 EDT Electronically signed by Millie Sebastian Conversion Overhead Cleaner Maintainer Cerner at 07/26/2022 6:31 PM CDT documented in this encounter Plan of Treatment Not on file documented as of this encounter Visit Diagnoses Not on filedocumented in this encounter
--- OUTSIDE RECORDS SUMMARY | 2025-02-06 12:33 | XMS_ITS | Encounter Summary ---
Author Organization [employer] ([place], [place], [place], [place]) Address [address] [place] [address] Care Team Providers Care Supreme Court Judge Name Role Phone Unavailable Primary Care Provider Unavailabl e Encounter Details Date Type Department Care Team (Late st Contact Info) Description 07/27/2019 Transcribed Document [facility] [place] [address] [place] [address] ProviderTobias MD [address] [place] [address] Social History Tobacco Use Types [...] Conversion Note - Historical ProviderMD - 07/27/2019 1:36 AM CDT Admission History, Adult Entered On: 07/27/2019 1:49 EDT Performed On: 07/27/2019 1:36 EDT by Brooklyn Gimenez RN Advance Directive Patient has Advance Directive *Q : No, patient refuses Advance Directive information Brooklyn Gimenez RN - 07/27/2019 1:36 EDT Anesthesia/Transfusion History Family History of Anesthesia Reaction : No prior transfusion(s) Transfusion History : Prior anesthesia without reaction Family History of Anesthesia Reaction : None Brooklyn Gimenez RN - 07/27/2019 1:36 EDT Functional Assessment Living Situation : Home Patient Lives With : Spouse Current Home Treatments : None Brooklyn Gimenez RN - 07/27/2019 1:36 EDT General Info Emergency Contact #1 Brooklyn Gimenez RN - 07/27/2019 7:36 EDT Support Person/Pt Rep Name : Clari Phillips Support Person/Pt Rep Contact Information : [phone] Want Family/Rep/Phys Notified of Admit : Yes Name/Contact Info Fam/Rep Notified Adm : Clari Phillips Name/Contact Info Physician Notified Adm : N/A Emergency Contact #1 : Clari Phillips Emergency Contact #1 Relationship : Emergency Contact #2 : N/A Emergency Contact #2 Phone Number : N/A Emergency Contact #2 Relationship : N/A Primary Language : Divehi Communication Barrier : None Brooklyn Gimenez RN - 07/27/2019 1:36 EDT Fall Risk Scales ABCs Fall Injury Risk Identification : None ABDI Hx Falls Immediate/Within 3 Months : Yes Abdi Secondary Diagnosis : Yes ABDI Use of Ambulatory Aid : Bed rest/Nurse assist ABDI IV Therapy or IV Access : Yes Abdi Gait/Transferring : Weak Abdi Mental Status : Overestimates/Forgets limitations Abdi Fall Risk Score : 85 ABDI Fall Scale Risk Level : 46 or > High Risk [place] Fall Interventions : Adequate lighting, Assistive devices within reach, Bed in low position, Call device within reach, Frequent orientation to call device, Frequent orientation to surroundings, Hourly comfort/safety rounds, Non-slip footwear, Personal items within reach, Reinforced to call for assistance before getting out of bed, Room free of clutter/spills, Upper side-rails up, Wheels locked, Wires/Cords secured Brooklyn Gimenez RN - 07/27/2019 7:36 EDT Health Histories Smoking Status : Former smoker, quit more than 30 days ago Smokeless Tobacco Status : Never Brooklyn Gimenez RN - 07/27/2019 7:36 EDT Social History (As Of: 07/27/2019 07:41:41 EDT) Tobacco: Use in Last 12 Months: No. Smoking Status Former smoker. Last Used: quit 8 years ago. (Last Updated: 03/31/2015 07:33:08 EST by Jinny Ramirez, RN) Alcohol: Alcohol Use History No. (Last Updated: 03/31/2015 07:33:12 EST by Jinny Ramirez, RN) Substance Abuse: Drug Use Hx: No. (Last Updated: 03/31/2015 07:33:15 EST by Jinny Ramirez RN) Height and Weight, Clinical Dosing Height Source : Stated Height Entry Format : [place] Height, Feet : 5 ft(Converted to: 152 cm, 60 Inch) Height, Inches : 11 Inch(Converted to: 0 ft 11 Inch, 27.94 cm) Clinical Height : 180.34 cm Weight Source : Bed scale Weight Entry Format : Metric, kilograms Weight, Kilograms : 119.7 kg(Converted to: 263 lb 14 oz) Clinical Dosing Weight : 119.7 kg Body Surface Area (BSA) : 2.37 m2 Body Mass Index : 36.8 kg/m2 (HI) [place] Body Weight : 74 kg Brooklyn Gimenez RN - 07/27/2019 5:24 EDT Infectious Disease History COVID19 Screening : No Experiencing Infectious Disease Symptoms : Weakness/Fatigue Physical contact outside US in the last 30 days : No Infectious Disease History : Chicken pox/Shingles Tuberculosis Symptoms : Loss of Appetite Brooklyn Gimenez RN - 07/27/2019 5:24 EDT Influenza Vaccine Asmt, Adult Previous Vaccines from Immunization Schedule : No qualifying data available. Influenza Immunization, Current Season : No Inactivated Flu Vaccine Contraindications : No contraindications to inactivated influenza vaccine Transplant Workup/Recent Transplant : No Order for Influenza Vaccine : Declined Vaccination Brooklyn Gimenez RN - 07/27/2019 5:24 EDT Pneumococcal Vaccine Previous Vaccines from Immunization Schedule : No qualifying data available. Pneumonia Immunization Received : No Pneumococcal Risk Assessment < Age 65 : N/A- Patient 65 years of age or older Pneumococcal Vaccine Contraindications : No contraindications to pneumococcal vaccine Transplant Workup/Recent Transplant : No Order for Pneumococcal Vaccine : Declined Vaccination Brooklyn Gimenez RN - 07/27/2019 5:24 EDT Nutrition History Eating Poorly Due to Decreased Appetite : Yes Unplanned Weight Loss in Past 3-6 Months : Unsure Unplanned Weight Loss Amount : Unsure Malnutrition Screening Tool Total(mal) : 5 Malnutrition Screening Tool Risk Level : Patient at risk Brooklyn Gimenez RN - 07/27/2019 5:24 EDT [place] Suicide Severity Rating Scale (C-SSRS) CSSRS Past Month Wish to be : No CSSRS Past Month Suicidal Thoughts : No CSSRS Lifetime Suicide Behavior : No Suicide Severity Rating Score : 0 Suicide Severity Rating : No Additional Care Required at this time Thoughts of Harming/Killing Others : No LORENZO KYLE RN - 07/27/2019 12:50 EDT Psychosocial History Does Someone Depend on You for Care? : No Chronic/Terminal Illness w/Freq Visits : No Currently in Unsafe Situation : No LORENZO KYLE RN - 07/27/2019 12:50 EDT Do You Have a History of the Following? : Patient denies history Brooklyn Gimenez RN - 07/27/2019 7:36 EDT Sleep Apnea Risk Assmt Hx of Obstructive Sleep Apnea Diagnosis : No Snore Loudly : No Tired, Fatigued, or Sleepy During Day : No Observed Stopping Breathing During Sleep : No Have/Are Being Treated for Hypertension : Yes BMI Greater Than 35 kg/m2 : No Neck Circumference Greater Than 40 cm : No STOP-BANG Sleep Apnea Risk Level Score : 3 LORENZO KYLE RN - 07/27/2019 12:50 EDT Age over 50 Years Old : Yes Gender Male : Yes Brooklyn Gimenez RN - 07/27/2019 7:36 EDT Valuables and Belongings Valuables and Belongings : Clothing, Personal items Clothing : Outerwear Clothing Disposition : Bedside Personal Items : Cell phone Personal Items Disposition : Bedside Brooklyn Gimenez RN - 07/27/2019 7:36 EDT documented in this encounter Plan of Treatment Not on file documented as of this encounter Visit Diagnoses Not on filedocumented in this encounter
--- OUTSIDE RECORDS SUMMARY | 2025-02-06 12:33 | XMS_ITS | Encounter Summary ---
Author Organization [employer] ([place], [place], [place], [place]) Address [address] [place] [address] Care Team Providers Care Director Of Restaurants Name Role Phone Unavailable Primary Care Provider Unavailabl e Encounter Details Date Type Department Care Team (Late st Contact Info) Description 07/28/2019 Transcribed Document [facility] [place] [address] [place] [address] ProviderTobias MD [address] [place] [address] Social History Tobacco Use Types Packs/Day Years Used Date Smoking Tobacco: Never Assessed Sex and Gender Information Value Date Recorded Sex Assigned at Male 10/08/2021 11:56 AM CDT Legal Sex Male 6:58 PM CDT Gender Identity Male 10/08/2021 11:56 AM CDT Sexual Orientation Not on file documented as of this encounter Miscellaneous Notes * Cerner Conversion Note - Tobias Gamino MD - 07/28/2019 10:54 AM CDT Patient: AVI SKY Age: 69 years Sex: Male : 1950 [...] Documented Current medications: (Selected) Inpatient Medications Ordered Normal Saline 1,000 mL: 100 mL/Hr, IntraVENous Pepcid: 20 mg, IV Push, BID Tylenol: 650 mg, Oral, Q4HInt, PRN: Pain (Mild 1-3) Zofran: 4 mg, IV Push, Q6H, PRN: Nausea hydrALAZINE: 10 mg, IV Push, Q6H, PRN: Hypertension traMADol: 25 mg, Oral, RT_Q6H, PRN: Pain [...] 1 Tab, Oral, Daily, 0 Refill(s), Medications (6) Active Scheduled: (1) famotidine 20 mg/2 mL inj 20 mg 2 mL, IV Push, BID Continuous: (1) NaCl 0.9% 1,000 mL 1,000 mL, IntraVENous, 100 mL/Hr PRN: (4) acetaminophen 325 mg tab 650 mg 2 Tab, Oral, Q4HInt hydrALAZINE 20 mg/1 mL inj 10 mg 0.5 mL, IV Push, Q6H ondansetron 4 mg/2 mL inj 4 mg 2 mL, IV Push, Q6H traMADol 50 mg tab 25 mg 0.5 Tab, Oral, RT_Q6H Problem list: Medical At risk for sleep apnea / IMO [id number] / Confirmed, Active Problems (8) Allergic rhinitis Arthritis At risk for sleep apnea Atrial fibrillation Cataract Gout Hyperlipidemia Hypertension Physical Examination VS/Measurements Vitals Signs (last 24 hrs) Last Charted Minimum Maximum Temp 98 (JUL 27 05:50) 98 (JUL 27 05:50) 98.3 (JUL 26 12:00) Mon HR 76 (JUL 27 05:50) 45 (JUL 26 11:00) 93 (JUL 26 14:00) Resp Rate 18 (JUL 27 05:50) 16 (JUL 26 17:00) H 34 (JUL 26 11:30) SBP 131 (JUL 27 05:50) 90 (JUL 26 15:00) 131 (JUL 27 05:50) DBP 75 (JUL 27 05:50) L 54 (JUL 26 15:00) 75 (JUL 27 05:50) MAP 96 (JUL 27 05:50) 67 (JUL 26 15:00) 96 (JUL 27 05:50) SpO2 95 (JUL 27 05:50) 95 (JUL 26 22:30) 98 (JUL 26 12:00) , Measurements from flowsheet : Measurements 07/27/2019 1:36 EDT Height Source Stated Height Entry Format [place] Height/Length, BAHAMIAN (ft) 5 ft Height/Length BAHAMIAN 11 Inch CLINICALHEIGHT 180.34 cm [place] Body Weight 74 kg Weight Source Bed scale Weight Entry Format Metric, kilograms Weight METRIC kg 119.7 kg CLINICALWEIGHT 119.7 kg Body Surface Area (BSA) 2.37 m2 Body Mass Index 36.8 kg/m2 HI 07/27/2019 0:58 EDT Height Source Measured Height Entry Format [place] Height/Length, BAHAMIAN (ft) 5 ft Height/Length BAHAMIAN 11 Inch CLINICALHEIGHT 180.34 cm [place] Body Weight 74 kg Weight Source Bed scale Weight Entry Format Metric, kilograms Weight METRIC kg 119.7 kg CLINICALWEIGHT 119.7 kg Body Surface Area (BSA) 2.37 m2 Body Mass Index 36.8 kg/m2 HI 07/27/2019 0:53 EDT Height Source Stated Height Entry Format [place] Height/Length, BAHAMIAN (ft) 5 ft Height/Length BAHAMIAN 11 Inch CLINICALHEIGHT 180.34 cm [place] Body Weight 74 kg Usual Weight, Pounds 263 lb Weight Source Bed scale Weight Entry Format Metric, kilograms Weight METRIC kg 119.7 kg CLINICALWEIGHT 119.7 kg Body Surface Area (BSA) 2.37 m2 Body Mass Index 36.8 kg/m2 HI Gen: Alert and oriented. NAD HEENT : NC/AT Neck: Supple, No JVD LUngs : CTA bilaterally. Non labored respiration CVS: RRR, No murmur Abd: SOft, Non tender, Obese, BS+ Ext: No edema, no cyanosis HAND SURGEON: no focal deficit noted. Alert. Review / Management Results review: Labs (Last four charted values) WBC 7.1 (JUL 27) H 11.0 (JUL 26) H 12.0 (JUL 26) HB L 9.6 (JUL 18) L 10.7 (JUL 26) L 11.8 (JUL 26) HCT L 28.9 (JUL 18) L 32.1 (JUL 26) L 35.4 (JUL 26) Plt L 152 (JUL 18) 176 (JUL 17) 176 (JUL 17) Na 144 (JUL 18) 145 (JUL 17) 140 (JUL 17) K 4.5 (JUL 18) 4.9 (JUL 17) H 5.4 (JUL 26) C 6.7 (JUL 26) Cl H 117 (JUL 18) H 120 (JUL 17) H 117 (JUL 17) CO2 24 (JUL 18) L 18 (JUL 17) L 20 (JUL 17) BUN H 60 (JUL 18) C 85 (JUL 17) C 88 (JUL 17) Cr H 1.90 (JUL 18) H 3.60 (JUL 17) H 3.90 (JUL 17) Glu R 98 (JUL 18) 95 (JUL 17) H 107 (JUL 17) Ca 8.9 (JUL 18) 9.7 (JUL 17) 9.9 (JUL 17) Lactic 1.0 (JUL 26) PT 10.7 (JUL 26) INR 1.0 (JUL 26) AST 27 (JUL 27) 31 (JUL 26) 19 (JUL 26) ALT 17 (JUL 27) 19 (JUL 26) 16 (JUL 26) ALK P 59 (JUL 27) 67 (JUL 26) 68 (JUL 26) T Bili 0.3 (JUL 18) 0.5 (JUL 26) 0.5 (JUL 26) PTN 6.5 (JUL 27) 7.3 (JUL 26) 7.3 (JUL 26) ALB L 2.7 (JUL 27) L 3.2 (JUL 26) L 3.3 (JUL 26) . JUL 27 02:44 144 H 117 H 60 / 98 4.5 24 H 1.90 \ JUL 27 02:44 \ L 9.6 / 7.1 L 152 / L 28.9 \ Impression and Plan Dx and Plan 1- HALLIE on CKD stage III - Non-oliguric - pre-renal azotemia likely improved with IV hydration. Improving. Urine P/C ratio 0.36 only 2- Hyperkalemia - medication and HALLIE - resolved. 3- Mild metabolic acidosis - improved. 4- Anemia - 5- CKD stage III - baseline 1.6-1.9 range. 6- Chronic afib 7- Hx of left renal mass - urology input appreciated. 8- Gross hematuria - Urology following. Plan: - Encourage oral hydration. - Monitor I/O - Avoid nephrotoxic agents. - Renal diet. - Adjust meds per renal function - No need of HEAT AND VENT AIRCRAFT MECHANIC documented in this encounter Plan of Treatment Not on file documented as of this encounter Visit Diagnoses Not on filedocumented in this encounter
--- OUTSIDE RECORDS SUMMARY | 2025-02-06 12:33 | XMS_ITS | Encounter Summary ---
Author Organization [facility] Address [address] [place] [address] Care Team Providers Care Brainer Name Role Phone Henrry Vegas MD Primary Care Provider [phone] Zackary Smith MD Unavailable [phone] Hector Henry Unavailable Encounter Details Date Type Department Care Team (Late st Contact Info) Description 11/22/2023 Community [facility] [address] [place] [address] Matthew Triana, [address] [address] Social History Tobacco Use Types Packs/Day Years [...] on filedocumented in this encounter Care Teams Brainer Relationship Specialty Start Date End Date Henrry Vegas MD [address] [place] [address] [address] PCP - General 08/22/20 Zackary Smith MD [address] [place] [id number] Franchise Broker 12/27/23 Hector Henry PA [address] [place] [id number] Franchise Broker 12/27/23 documented as of this encounter
--- OUTSIDE RECORDS SUMMARY | 2025-02-06 12:33 | XMS_ITS | Encounter Summary ---
Author Organization [employer] ([place], [place], [place], [place]) Address [address] [place] [address] Care Team Providers Care Optical Manager Name Role Phone Unavailable Primary Care Provider Unavailabl e Encounter Details Date Type Department Care Team (Late st Contact Info) Description 08/01/2019 Transcribed Document [facility] [place] [address] [place] [address] ProviderTobias MD [address] [place] [address] Social History Tobacco Use [...] Conversion Note - Historical ProviderMD - 08/01/2019 1:48 PM CDT Stroke/Warfarin Instructions Entered On: 08/01/2019 13:48 EDT Performed On: 08/01/2019 13:48 EDT by JANINE GALDAMEZ, RN Stroke/Warfarin Instructions Stroke/TIA Discharge Ins : N/A Warfarin Discharge Ins : N/A JANINE GALDAMEZ, RN - 08/01/2019 13:48 EDT documented in this encounter Plan of Treatment Not on file documented as of this encounter Visit Diagnoses Not on filedocumented in this encounter
--- OUTSIDE RECORDS SUMMARY | 2025-02-06 12:33 | XMS_ITS | Encounter Summary ---
Author Organization [employer] ([place], [place], [place], [place]) Address [address] [place] [address] Care Team Providers Care Time Checker Name Role Phone Unavailable Primary Care Provider Unavailabl e Encounter Details Date Type Department Care Team (Late st Contact Info) Description 07/30/[address] [facility] [place] [address] [place] [address] ProviderTobias MD [address] [place] [address] Social History Tobacco Use Types [...] Conversion Note - Historical ProviderMD - 07/30/2019 4:39 PM CDT On Going Discharge Planning Entered On: 07/30/2019 16:43 EDT Performed On: 07/30/2019 16:39 EDT by SUSAN SIN Rn-Independent Agent Music EducationTechnical Support Specialist Progress Note Discharge Arrangements : Patient Post-Acute [...] Clinical Condition of Patient, Follow-Up appointments needed Designation of Choice Signed : No Patient Offered Choice/Affiliations Explained : Yes List/Info Provided Pt/Fam/Support Person : Other: rehab Were Referrals Sent to Post Acute Providers : Yes Is the Patient Meeting Medical Necessity : Yes Did you Attend Multidisciplinary Rounds? : No SUSAN SIN Rn-Independent Agent Music Education - 07/30/2019 16:39 EDT Narrative Progress Note Narrative Progress Note : Referral sent to [facility] and facilities in [facility] SUSAN SIN Rn-Independent Agent Music Education - 07/30/2019 16:39 EDT documented in this encounter Plan of Treatment Not on file documented as of this encounter Visit Diagnoses Not on filedocumented in this encounter
--- OUTSIDE RECORDS SUMMARY | 2025-02-06 12:33 | XMS_ITS | Encounter Summary ---
Author Organization [employer] ([place], [place], [place], [place]) Address [address] [place] [address] Care Team Providers Care Publications Designer Name Role Phone Unavailable Primary Care Provider Unavailabl e Encounter Details Date Type Department Care Team (Late st Contact Info) Description 07/29/2019 Transcribed Document [facility] [place] [address] [place] [address] ProviderTobias MD [address] [place] [address] Social History Tobacco Use Types Packs/Day Years Used Date Smoking Tobacco: Never Assessed Sex and Gender Information Value Date Recorded Sex Assigned at Male 10/08/2021 11:56 AM CDT Legal Sex Male 6:58 PM CDT Gender Identity Male 10/08/2021 11:56 AM CDT Sexual Orientation Not on file documented as of this encounter Miscellaneous Notes * Cerner Conversion Note - Historical ProviderMD - 07/29/2019 5:00 AM CDT Chart Check - Review Order Profile Entered On: 07/29/2019 5:54 EDT Performed On: 07/29/2019 5:00 EDT by ELISA WHITLEY, RN Chart Check Powerplans Initiated/Discontinued as Appropriate : Yes All Active Orders Reviewed : Yes ELISA WHITLEY, RN - 07/29/2019 5:54 EDT documented in this encounter Plan of Treatment Not on file documented as of this encounter Visit Diagnoses Not on filedocumented in this encounter
--- OUTSIDE RECORDS SUMMARY | 2025-02-06 12:33 | XMS_ITS | Encounter Summary ---
Author Organization [employer] ([place], [place], [place], [place]) Address [address] [place] [address] Care Team Providers Care Signal Maintainer Name Role Phone Unavailable Primary Care Provider Unavailabl e Encounter Details Date Type Department Care Team (Late st Contact Info) Description 07/31/2019 Transcribed Document [facility] [place] [address] [place] [address] ProviderTobias MD [address] [place] [address] Social History Tobacco Use Types [...] Conversion Note - Historical ProviderMD - 07/31/2019 2:00 AM CDT Examination Proctor Details Entered On: 07/31/2019 1:16 EDT Performed On: 07/31/2019 2:00 EDT by Cassandra Arellano, RN-Resource Order Details Transport Mode Order Detail : Bed (including specialty) Isolation Precautions Order Detail : Standard Precautions Order Detail : N/A IV Order Detail : 0 Oxygen Order Detail : 0 Nurse Collect Order Detail : 0 Lift/Transfer : Moderate assist Central Line Order Detail : No Room Service : Not Appropriate Arterial Line : No Cassandra Arellano, RN-Resource - 07/31/2019 1:16 EDT Electronically signed by Millie Sebastian Conversion Washing And Screening Plant Supervisor Cerner at 07/26/2022 6:25 PM CDT documented in this encounter Plan of Treatment Not on file documented as of this encounter Visit Diagnoses Not on filedocumented in this encounter
--- OUTSIDE RECORDS SUMMARY | 2025-02-06 12:33 | XMS_ITS | Encounter Summary ---
Author Organization [employer] ([place], [place], [place], [place]) Address [address] [place] [address] Care Team Providers Care Transcribing Operator Head Name Role Phone Unavailable Primary Care Provider Unavailabl e Encounter Details Date Type Department Care Team (Late st Contact Info) Description 07/31/2019 Transcribed Document [facility] [place] [address] [place] [address] ProviderTobias MD [address] [place] [address] Social History Tobacco Use Types [...] Conversion Note - Historical ProviderMD - 07/31/2019 5:00 AM CDT Chart Check - Review Order Profile Entered On: 07/31/2019 4:03 EDT Performed On: 07/31/2019 5:00 EDT by Cassandra Arellano, RN-Resource Chart Check Powerplans Initiated/Discontinued as Appropriate : Yes All Active Orders Reviewed : Yes Cassandra Arellano, RN-Resource - 07/31/2019 4:03 EDT documented in this encounter Plan of Treatment Not on file documented as of this encounter Visit Diagnoses Not on filedocumented in this encounter
--- OUTSIDE RECORDS SUMMARY | 2025-02-06 12:33 | XMS_ITS | Referral Summary ---
Author Organization [employer] ([place], [place], [place], [place]) Address [address] [place] [address] Care Team Providers Care Casing Wringer Operator Name Role Phone Unavailable Primary Care Provider Unavailabl e Social History Tobacco Use Types Packs/Day Years Used Date Smoking Tobacco: Never Assessed Food Insecurity Answer Date Recorded Food run out past 12 months Not on file 11/11 Food did not last past 12 months Not on file 12/09/2023 Employment Answer Date Recorded Help finding and keeping a job Not on file 0 12/09/2023 Family and Community Support Answer Efra e Recorded Help with Day to Day Activities Not on file 12/09/2023 Feeling Lonely or Isolated Not on file 12/08 Educational Attainment Answer Date Marc rded Speak language other than Indonesian at home Not on file 12/09/2023 Want help with school or training Not on file 12/09/2023 Substance Use Answer Date Recorded Used prescription meds for non-medical reasons N ot on file 12/09/2023 Used illegal drugs past 12 months Not on file 12/09/2023 Sex and Gender Information Value Date Recorded Sex Assigned at Male 10/08/2021 11:56 AM CDT Legal Sex Male 6:58 PM CDT Gender Identity Male 10/08/2021 11:56 AM CDT Sexual Orientation Not on file Plan of Treatment Not on file
--- OUTSIDE RECORDS SUMMARY | 2025-02-06 12:33 | XMS_ITS | Encounter Summary ---
Author Organization [employer] ([place], [place], [place], [place]) Address [address] [place] [address] Care Team Providers Care Fulfillment Specialist Name Role Phone Unavailable Primary Care Provider Unavailabl e Encounter Details Date Type Department Care Team (Late st Contact Info) Description 07/28/2019 Transcribed Document [facility] [place] Family Medicine [address] [place] [address] ProviderTobias MD [address] [place] [address] Social History Tobacco Use Types Packs/Day Years Used Date Smoking Tobacco: Never Assessed Sex and Gender Information Value Date Recorded Sex Assigned at Male 10/08/2021 11:56 AM CDT Legal Sex Male 6:58 PM CDT Gender Identity Male 10/08/2021 11:56 AM CDT Sexual Orientation Not on file documented as of this encounter Miscellaneous Notes * Cerner Conversion Note - Historical Provider, - 07/28/2019 1:44 PM CDT Treatment Intervention, PT Entered On: 07/30/2019 14:46 EDT Performed On: 07/30/2019 9:20 EDT by TALITA POLLACK PT General Information, PT Visit Type, PT : Treatment Note TALITA POLLACK PT - 07/30/2019 14:39 EDT Patient Orders : Order Date Order Ordering 07/27/2019 12:53 Consult to Physical Therapy Ordered By: ARNOLDO VALLADARES MD-INT 07/28/2019 13:44 PT Additional Treatment Ordered By: LORRIE WAHL PT Active Diagnoses : No Qualifying Diagnoses TALITA POLLACK PT - 07/30/2019 14:47 EDT Therapy Diagnosis, PT : Decreased mobility due to hyperkalemia, acute on chronic kidney disease TALITA POLLACK PT - 07/30/2019 14:39 EDT Admission Date : 07/27/2019 00:54 Personal Devices : Personal Devices No Devices Recorded Assistive Devices : Assistive Devices No Devices Recorded TALITA POLLACK PT - 07/30/2019 14:[address] : Fall prevention measures TALITA POLLACK PT - 07/30/2019 14:39 EDT General Status Patient Received Status : Supine in bed Treatment Start Time : 07/30/2019 8:57 EDT Patient Left Status : Up in chair, Communication board completed, All needs met and within reach RN/PCT Informed Comment : TETO Grier PTx Treatment End Time : 07/30/2019 9:20 EDT Treatment Time : 23 Minute(s) TALITA POLLACK PT - 07/30/2019 14:39 EDT Therapeutic Exercises PT Therapeutic Exercise Grid Exercise #1 Exercises : Abduction, Ankle pumps, Flexion, Long arc Location : Lower extremity Laterality : Bilateral Position : Sitting supported Reps : 20 TALITA POLLACK PT - 07/30/2019 14:47 EDT Functional Mobility Mobility Grid Supine to Sit : Rehab Minimal assistance Sit to Stand : Rehab Moderate assistance Stand to Sit : Rehab Minimal assistance TALITA POLLACK PT - 07/30/2019 14:39 EDT Sit to Stand Device : Belt, gait, Walker, front wheel, Other: IV pole TALITA POLLACK PT - 07/30/2019 14:39 EDT Gait Training/Assessment, PT Weight Bearing Status Maintained : Yes Weight Bearing Status : Full Gait Assistance Level : Assist, minimal Walking Distance : 62ft Ambulatory Devices : Gait belt, Walker, front wheel Gait Deviations : Yes Left Lower Gait Deviation : Shahana, decreased, Foot clearance, decreased, Step length, decreased Right Lower Gait Deviation : Shahana, decreased, Foot clearance, decreased, Step length, decreased Gait Training Comment : Pt had strong lean to the L during gait, narrow MARY, frequent cues to move closer to Rwx TALITA POLLACK PT - 07/30/2019 14:39 EDT Indication Assesessment, PT Physical Therapy Indicated : Yes TALITA POLLACK PT - 07/30/2019 14:39 EDT Plan of Care, PT PT Tx Plan/Goals Established w Patient : Yes TALITA POLLACK PT - 07/30/2019 14:39 EDT Short Term Goals Mobility/Bed Mobility STG PT Grid Goal #1 Goal #2 Activity : Supine to sit Sit to stand Assist : Supervision or set-up Assist, minimal Equipment : Rail, bed Walker, front wheel Date to Meet : 08/04/2019 EDT 08/04/2019 EDT Goal Status : Progressing, continue Progressing, continue TALITA POLLACK, PT - 07/30/2019 14:39 EDT TALITA POLLACK, PT - 07/30/2019 14:39 EDT Ambulation STG Grid Goal #1 Device : Walker, front wheel Distance : 30' Assist : Assist, minimal Date to Meet : 08/04/2019 EDT Goal Status : Progressing, continue TALITA POLLACK, PT - 07/30/2019 14:39 EDT Fdc Goals Mobility/Bed Mobility LTG PT Grid Goal #1 Activity : Sit to stand Assist : Supervision or set-up Equipment : Walker, front wheel Date to Meet : 08/11/2019 EDT Goal Status : Progressing, continue TALITA POLLACK, PT - 07/30/2019 14:39 EDT Ambulation LTG Grid Goal #1 Device : Walker, front wheel Distance : 100' Assist : Supervision or set-up Date to Meet : 08/11/2019 EDT Goal Status : Progressing, continue TALITA POLLACK, PT - 07/30/2019 14:39 EDT Treatment Note Subjective Comment : Pt agreeable to PTx. Pt wants to discharge home, Pt's impaired balance with transfers is very concerning for discharge home. Pt would be very high fall risk and requirie someone to assist at all times with mobility for safety Patient's Response to Treatment : Pt tolerated tx well Assessment : Pt did demonstrate L sided lean with initial sit to stand that threw him off balance requiring modA to correct. Pt maintained slight L side lean with 62 ft of ambulation requring Laxmi. Pt also instructed to increase step length, Pt unable to maintain and returned to shuffled gait frequently. Plan for Treatment : Cont per POC TALITA POLLACK, PT - 07/30/2019 14:39 EDT Pain Assessment Pain Scaled Used : 0-10 Pain scale Pain Score Pre-Intervention : 0 TALITA POLLACK PT - 07/30/2019 14:39 EDT Image 1 - Images currently included in the form version of this document have not been included in the text rendition version of the form. Anticipated Discharge Needs, OT/PT Anticipated Discharge to : Unit, rehabilitation, Unit, longterm Recommend Continued Therapy at Discharge : Yes TALITA POLLACK, PT - 07/30/2019 14:[address] [facility] PT Therap. Exercise 15 min : 1 Gait Training Each 15 Min : 1 TALITA POLLACK, PT - 07/30/2019 14:39 EDT documented in this encounter Plan of Treatment Not on file documented as of this encounter Visit Diagnoses Not on filedocumented in this encounter
--- OUTSIDE RECORDS SUMMARY | 2025-02-06 12:33 | XMS_ITS | Encounter Summary ---
Author Organization [employer] ([place], [place], [place], [place]) Address [address] [place] [address] Care Team Providers Care Filler Shredder Helper Name Role Phone Unavailable Primary Care Provider Unavailabl e Encounter Details Date Type Department Care Team (Late st Contact Info) Description 07/29/2019 Transcribed Document [facility] [place] [address] [place] [address] ProviderTobias MD [address] [place] [address] Social History Tobacco Use [...] Conversion Note - Historical ProviderMD - 07/29/2019 12:02 PM CDT Patient: AVI PHILLIPS Age: 69 Years Sex: Male : 1950 Subjective Patient doing well denies any new complains. Vital Signs T: 36.7 ??C HR: 84(Monitored) RR: 18 BP: 135/95 SpO2: 94% Oxygen Settings (Last) Oxygen Therapy Mode: Room air (07/29/19 08:12:00) Intake & Output Totals Last 24 Hours (7a-7a) Input Total: 1324 mL Output Total: 2250 mL Balance: -926 mL Physical Exam General: no acute distress. [...] of bradycardia in the 40s (not documented). Acute kidney injury on CKD3, likely prerenal/Left renal Mass/hematuria - baseline Cr 1.6-1.9 per records. Cr 5.3 on presentation, improving w/ IVF - avoid nephrotoxic agents, trend renal indices. [...] - BB/CCB and fleccainide held for hypotension/bradycardia. Hypertension - hold home Meds in light of recent hypotension and bradycardia. - HR and BP now normal. Disposition: Patient reportedly confused, currently doing well. He has a sitter, we will consult PT/OT do establish disposition.Will try to DC sitter. VTE Prophylaxis - Medical Sequential Compression Device [...] Test Name Test Result Date/Time Sodium Level 141 mmol/L 07/29/2019 03:17 EDT Potassium Level 4.5 mmol/L 07/29/2019 03:17 EDT Chloride Level 112 mmol/L 07/29/2019 03:17 EDT Carbon Dioxide Level 24 mmol/L 07/29/2019 03:17 EDT Anion Gap 10 07/29/2019 03:17 EDT Glucose Level 96 mg/dL 07/29/2019 03:17 EDT Blood Urea Nitrogen 33 mg/dL (High) 07/29/2019 03:17 EDT Creatinine Level 1.40 mg/dL (High) 07/29/2019 03:17 EDT eGFR >60 mL/min/1.73m2 07/29/2019 03:17 EDT eGFR NonAfrican 50 mL/min/1.73m2 (Low) 07/29/2019 03:17 EDT Bun/Creatinine 23.6 (High) 07/29/2019 03:17 EDT Calcium Level 9.0 mg/dL 07/29/2019 03:17 EDT Protein Total 6.7 Gram/dL 07/29/2019 03:17 EDT Albumin Level 2.7 Gram/dL (Low) 07/29/2019 03:17 EDT Globulin 4.0 Gram/dL 07/29/2019 03:17 EDT A/G Ratio 0.7 (Low) 07/29/2019 03:17 EDT Bilirubin Total 0.3 mg/dL 07/29/2019 03:17 EDT Alk Phos 60 Units/Liter 07/29/2019 03:17 EDT AST 22 Units/Liter 07/29/2019 03:17 EDT ALT 18 Units/Liter 07/29/2019 03:17 EDT Device Comment 1 Notified MD RBV 07/29/2019 10:44 EDT Glucose POC2 90 mg/dL 07/29/2019 10:44 EDT Electronically signed by Romulo, [facility] Conversion Healthcare Marketer Govind at 07/26/2022 6:21 PM CDT documented in this encounter Plan of Treatment Not on file documented as of this encounter Visit Diagnoses Not on filedocumented in this encounter
--- OUTSIDE RECORDS SUMMARY | 2025-02-06 12:33 | XMS_ITS | Clinical Summary ---
Author Organization [employer] ([place], [place], [place], [place]) Address [address] [place] [address] Care Team Providers Care School Services Officer Name Role Phone Unavailable Primary Care Provider [...] Date Marc rded Speak language other than Welsh at home Not on file 12/09/2023 Want [...] Orientation Not on file Plan of Treatment Health Maintenance Due Date Last Done Comments Depression Screening (12+) 1961 Tobacco Cessation Counseling and Screening (12+) 1961 Hepatitis C Screening 1967 Respiratory Syncytial Virus (RSV) Adult or (1 - 1-dose 75+ series) 01/04/2024 Falls Risk Screening 04/11/2024 COVID-19 VACCINE (2024- season) 2024 03/23/2022, 02/26/2021, 06/19/2020 Influenza Vaccine (#1) 2024 3, 12/30/2020, 03/25/2020 DTAP/TDAP/TD VACCINES (2 - T d or Tdap) 10/05/2033 10/06/2023 Pneumococcal 50+ years Completed 08/24/2022 Shingles Vaccine (Zoster) Completed 12/28/2022,
--- OUTSIDE RECORDS SUMMARY | 2025-02-06 12:33 | XMS_ITS | Encounter Summary ---
Author Organization [employer] ([place], [place], [place], [place]) Address [address] [place] [address] Care Team Providers Care Esol Teacher Assistant Name Role Phone Unavailable Primary Care Provider Unavailabl e Encounter Details Date Type Department Care Team (Late st Contact Info) Description 07/31/2019 Transcribed Document [facility] [place] [address] [place] [address] ProviderTobias MD [address] [place] [address] Social History Tobacco Use Types [...] Note - Historical ProviderMD - 07/31/2019 5:00 PM CDT Chart Check - Review Order Profile Entered On: 07/31/2019 17:45 EDT Performed On: 07/31/2019 17:00 EDT by Rosanne Vega RN Chart Check Powerplans Initiated/Discontinued as Appropriate : Yes All Active Orders Reviewed : Yes Rosanne Vega RN - 07/31/2019 17:45 EDT Electronically signed by [facility] Conversion Link Trainer Teacher Cerner at 07/26/2022 6:23 PM CDT documented in this encounter Plan of Treatment Not on file documented as of this encounter Visit Diagnoses Not on filedocumented in this encounter
--- OUTSIDE RECORDS SUMMARY | 2025-02-06 12:33 | XMS_ITS | Encounter Summary ---
Author Organization [employer] ([place], [place], [place], [place]) Address [address] [place] [address] Care Team Providers Care Banbury Mill Operator Name Role Phone Unavailable Primary Care Provider Unavailabl e Encounter Details Date Type Department Care Team (Late st Contact Info) Description 08/01/2019 Transcribed Document [facility] [place] [address] [place] [address] ProviderTobias MD [address] [place] [address] Social History Tobacco Use [...] Cerner Conversion Note - Tobias ProviderMD - 08/01/2019 11:51 AM CDT Final Discharge Planning Entered On: 08/01/2019 11:53 EDT Performed On: 08/01/2019 11:51 EDT by SUSAN SIN Rn-Bench Technician Final Discharge Planning Discharge Arrangements : Patient Post-Acute Information Patient Name: AVI PHILLIPS Gender: Male : [birth year] Age: 69 Years Curas[place] Referral(s): Service: Organization: Business Address: Phone Number: [employer] - [address], [address] Patient Offered Choice/Affiliations Explained : Yes Designation of Choice Signed : Yes Important Medicare Message Reviewed With : Patient Important Medicare Message Reviewed D/T : 08/01/2019 10:30 EDT Transportation Needs : Family/Friend Follow Up Appointment Scheduled : Yes Patient/Family Notified of Plan : Yes Is Patient Ready for Discharge? : Yes Physician Notified Patient is Ready for Discharge? : Yes Discharge To Care Management : Home Health Services (Related/SOC within 3 days)-06 Physician Notified of Patient Discharge Comment : SUSAN Smith Rn-Bench Technician - 08/01/2019 11:51 EDT Electronically signed by [facility] Conversion Bi Specialist Cerner at 07/26/2022 6:19 PM CDT documented in this encounter Plan of Treatment Not on file documented as of this encounter Visit Diagnoses Not on filedocumented in this encounter
--- OUTSIDE RECORDS SUMMARY | 2025-02-06 12:33 | XMS_ITS | Encounter Summary ---
Author Organization [facility] ([place], [place], [place], [place]) Address [address] [place] [address] Care Team Providers Care Upholsterer Limousine And Hearse Name Role Phone Unavailable Primary Care Provider Unavailabl e Encounter Details Date Type Department Care Team (Late st Contact Info) Description 07/31/2019 Transcribed Document [facility] [place] Medicine [address] [place] [address] ProviderTobias MD [address] [place] [address] Social History Tobacco Use Types [...] Conversion Note - Historical ProviderMD - 07/31/2019 12:36 PM CDT On Going Discharge Planning Entered On: 07/31/2019 12:36 EDT Performed On: 07/31/2019 12:36 EDT by JORGE CLAY RN-Care Management Care [...] rehab JORGE CLAY, RN-Care Management - 07/31/2019 12:36 EDT Narrative Progress Note Narrative Progress Note : NOted medication changes initiated w/plans of pacemaker placement 08/01. [facility] following pt and PT/OT orders will need to be entered postop. CM to cont following and updates to be sent accordingly Historical Progress Note : Referral sent to [facility] and facilities in [facility] SUSAN SIN Rn-Wet Roaster - 07/30/19 16:43:01 JORGE CLAY, RN-Care Management - 07/31/2019 12:36 EDT documented in this encounter Plan of Treatment Not on file documented as of this encounter Visit Diagnoses Not on filedocumented in this encounter
--- OUTSIDE RECORDS SUMMARY | 2025-02-06 12:33 | XMS_ITS | Encounter Summary ---
Author Organization [employer] ([place], [place], [place], [place]) Address [address] [place] [address] Care Team Providers Care Director Family Name Role Phone Unavailable Primary Care Provider Unavailabl e Encounter Details Date Type Department Care Team (Late st Contact Info) Description 08/01/2019 Transcribed Document [facility] [place] Medicine [address] [place] [address] ProviderTobias MD [address] [place] [address] Social History Tobacco Use Types [...] Conversion Note - Historical ProviderMD - 08/01/2019 11:51 AM CDT On Going Discharge Planning Entered On: 08/01/2019 11:51 EDT Performed On: 08/01/2019 11:51 EDT by SUSAN SIN Rn-Irrigation WorkerTar And Ammonia Pump Operator Progress Note Discharge Arrangements : Patient Post-Acute Information Patient Name: AVI PHILLIPS Gender: Male : [birth year] Age: 69 Years [place] Referral(s): Service: Organization: Business Address: Phone Number: [employer] [address], [address] Discharge Options Discussed with Patient : Discharge transportation, DME, Home Health, Outpatient services, Short term rehabilitation Barriers to Discharge Identified : Clinical Condition of Patient Barriers to Discharge Unresolved : All resolved Designation of Choice Signed : Yes Patient Offered Choice/Affiliations Explained : Yes List/Info Provided Pt/Fam/Support Person : Home health, Other: rehab Were Referrals Sent to Post Acute Providers : Yes Physician Agreeable to Move Forward with D/C Plan? : Yes Did you Attend Multidisciplinary Rounds? : Yes SUSAN SIN, Rn-Irrigation Worker - 08/01/2019 11:51 EDT Electronically signed by [facility] Conversion National Account Manager Cerner at 07/26/2022 6:16 PM CDT documented in this encounter Plan of Treatment Not on file documented as of this encounter Visit Diagnoses Not on filedocumented in this encounter
--- OUTSIDE RECORDS SUMMARY | 2025-02-06 12:33 | XMS_ITS | Encounter Summary ---
Author Organization [employer] ([place], [place], [place], [place]) Address [address] [place] [address] Care Team Providers Care Door To Door Lead Generation Name Role Phone Unavailable Primary Care Provider Unavailabl e Encounter Details Date Type Department Care Team (Late st Contact Info) Description 07/27/2019 Transcribed Document [facility] [place] [address] [place] [address] ProviderTobias MD [address] [place], [place] [id number] Social History Tobacco Use Types Packs/Day Years Used Date Smoking Tobacco: Never Assessed Sex and Gender Information Value Date Recorded Sex Assigned at Male 10/08/2021 11:56 AM CDT Legal Sex Male 6:58 PM CDT Gender Identity Male 10/08/2021 11:56 AM CDT Sexual Orientation Not on file documented as of this encounter Miscellaneous Notes * Cerner Conversion Note - Historical ProviderMD - 07/27/2019 9:21 PM CDT Pain Assessment Entered On: 07/29/2019 5:53 EDT Performed On: 07/28/2019 22:13 EDT by ELISA WHITLEY RN Intervention Information: traMADol Performed by ELISA WHITLEY RN on 07/28/2019 21:13:00 EDT traMADol,25mg Oral,Pain Pain Assessment Pain Assessment : Follow-up assessment Pain Scale Goal : 3 Location : Hips, bilateral Onset : Gradual Quality : Aching Pain Improved by : Medication Pain Improved by Intervention : Yes ELISA WHITLEY RN - 07/29/2019 5:53 EDT documented in this encounter Plan of Treatment Not on file documented as of this encounter Visit Diagnoses Not on filedocumented in this encounter
--- OUTSIDE RECORDS SUMMARY | 2025-02-06 12:33 | XMS_ITS | Encounter Summary ---
Author Organization [employer] ([place], [place], [place], [place]) Address [address] [place] [address] Care Team Providers Care Sales Teacher Name Role Phone Unavailable Primary Care Provider Unavailabl e Encounter Details Date Type Department Care Team (Late st Contact Info) Description 07/29/2019 Transcribed Document [facility] [place] [address] [place] [address] ProviderTobias MD [address] [place] [address] Social History Tobacco Use Types [...] Conversion Note - Tobias Gamino MD - 07/29/2019 10:13 AM CDT Patient: AVI SKY Age: 69 [...] Oral, Daily finasteride: 5 mg, Oral, Daily hydrALAZINE: 10 mg, IV Push, Q6H, PRN: [...] 1 Tab, Oral, Daily, 0 Refill(s), Medications (12) Active Scheduled: (6) allopurinol 300 mg tab 300 mg 1 Tab, Oral, Daily famotidine 20 mg/2 mL inj 20 mg 2 mL, IV Push, BID finasteride 5 mg tab 5 mg 1 Tab, Oral, Daily mometasone/formoterol 200/5 mcg inh 1 Puff, Inhalation, [...] At risk for sleep apnea / IMO [id number] / Confirmed, Active Problems (8) Allergic rhinitis Arthritis At risk for sleep apnea Atrial fibrillation Cataract Gout Hyperlipidemia Hypertension Physical Examination VS/Measurements Vitals Signs (last 24 hrs) Last Charted Minimum Maximum Temp 98.1 (JUL 28 06:00) 98 (JUL 28 02:00) 98.1 (JUL 27 14:30) Mon HR 84 (JUL 28 08:12) 75 (JUL 27 14:30) 91 (JUL 27 23:00) Resp Rate 18 (JUL 28 08:12) 17 (JUL 27 14:30) 18 (JUL 27 18:00) SBP 135 (JUL 28 06:00) 125 (JUL 27 14:30) H 155 (JUL 27 18:00) DBP H 95 (JUL 28 06:00) 85 (JUL 27 23:00) H 97 (JUL 27 14:30) MAP 107 (JUL 28 06:00) 99 (JUL 27 23:00) 111 (JUL 28 02:00) SpO2 94 (JUL 28 08:12) L 93 (JUL 27 23:00) 98 (JUL 27 14:30) Gen: Alert and oriented. NAD HEENT : NC/AT Neck: Supple, No JVD LUngs : CTA bilaterally. Non labored respiration CVS: RRR, No murmur Abd: SOft, Non tender, Obese, BS+ Ext: No edema, no cyanosis BOARD OF EDUCATION SECRETARY: no focal deficit noted. Alert. Review / Management Results review: Labs (Last four charted values) WBC 7.1 (JUL 27) H 11.0 (JUL 26) H 12.0 (JUL 26) HB L 9.6 (JUL 18) L 10.7 (JUL 26) L 11.8 (JUL 26) HCT L 28.9 (JUL 27) L 32.1 (JUL 26) L 35.4 (JUL 26) Plt L 152 (JUL 18) 176 (JUL 26) 176 (JUL 26) Na 141 (JUL 28) 144 (JUL 18) 145 (JUL 26) 140 (JUL 26) K 4.5 (JUL 28) 4.5 (JUL 18) 4.9 (JUL 26) H 5.4 (JUL 26) Cl 112 (JUL 28) H 117 (JUL 18) H 120 (JUL 17) H 117 (JUL 26) CO2 24 (JUL 28) 24 (JUL 18) L 18 (JUL 26) L 20 (JUL 17) BUN H 33 (JUL 28) H 60 (JUL 18) C 85 (JUL 26) C 88 (JUL 26) Cr H 1.40 (JUL 28) H 1.90 (JUL 18) H 3.60 (JUL 17) H 3.90 (JUL 17) Glu R 96 (JUL 28) 98 (JUL 18) 95 (JUL 17) H 107 (JUL 17) Ca 9.0 (JUL 19) 8.9 (JUL 18) 9.7 (JUL 17) 9.9 (JUL 17) Lactic 1.0 (JUL 17) PT 10.7 (JUL 17) INR 1.0 (JUL 17) AST 22 (JUL 19) 27 (JUL 18) 31 (JUL 17) 19 (JUL 17) ALT 18 (JUL 28) 17 (JUL 18) 19 (JUL 17) 16 (JUL 17) ALK P 60 (JUL 28) 59 (JUL 18) 67 (APR 17) 68 (APR 17) T Bili 0.3 (JUL 28) 0.3 (JUL 27) 0.5 (JUL 26) 0.5 (JUL 26) PTN 6.7 (JUL 28) 6.5 (JUL 27) 7.3 (JUL 26) 7.3 (JUL 26) ALB L 2.7 (JUL 28) L 2.7 (JUL 27) L 3.2 (JUL 26) L 3.3 (JUL 26) . JUL 28 03:17 141 112 H 33 / 96 4.5 24 H 1.40 \ Impression and Plan Dx and Plan [...] per renal function - No need of TAX EXAMINER documented in this encounter Plan of Treatment Not on file documented as of this encounter Visit Diagnoses Not on filedocumented in this encounter
--- OUTSIDE RECORDS SUMMARY | 2025-02-06 12:33 | XMS_ITS | Encounter Summary ---
Author Organization [employer] ([place], [place], [place], [place]) Address [address] [place] [address] Care Team Providers Care Switch Maker Name Role Phone Unavailable Primary Care Provider Unavailabl e Encounter Details Date Type Department Care Team (Late st Contact Info) Description 08/01/2019 Transcribed Document [facility] [place] [address] [place] [address] ProviderTobias MD [address] [place] [address] Social History Tobacco Use Types [...] Conversion Note - Historical ProviderMD - 08/01/2019 1:20 PM CDT Nursing Discharge Summary Entered On: 08/01/2019 13:21 EDT Performed On: 08/01/2019 13:20 EDT by JANINE GALDAMEZ, resident care manager Documentation Discharge Date/Time : 08/01/2019 14:15 EDT JANINE GALDAMEZ, RN - 08/01/2019 14:18 EDT Patient Disposition, General : Discharge Discharge To : Home with ambulatory/outpatient follow-up Mode Of Departure, General Discharge : Private vehicle Accompanied By, Discharge : Spouse IV Discontinued : Yes Prescriptions Given to Patient : Yes Medications Given to Patient : No Discharge Instructions Reviewed With, Opportunity For Questions Given : Patient, Spouse Patient Education Completed : Yes Number of Prescriptions Given : 2 Teaching Method : Demonstration, Explanation Teaching Evaluation : Returns demonstration, Verbalizes understanding JANINE GALDAMEZ, RN - 08/01/2019 13:20 EDT documented in this encounter Plan of Treatment Not on file documented as of this encounter Visit Diagnoses Not on filedocumented in this encounter
--- OUTSIDE RECORDS SUMMARY | 2025-02-06 12:33 | XMS_ITS | Encounter Summary ---
Author Organization [employer] ([place], [place], [place], [place]) Address [address] [place] [address] Care Team Providers Care Concrete Pipe Machine Operator Name Role Phone Unavailable Primary Care Provider Unavailabl e Encounter Details Date Type Department Care Team (Late st Contact Info) Description 07/30/2019 Transcribed Document [facility] [place] [address] [place] [address] ProviderTobias MD [address] [place] [address] Social History Tobacco Use Types [...] Conversion Note - Historical ProviderMD - 07/30/2019 4:37 PM CDT Initial Discharge Planning Entered On: 07/30/2019 16:39 EDT Performed On: 07/30/2019 16:37 EDT by SUSAN SIN Rn-Agricultural Economics Teacher Initial Assessment I Previously Documented Living Environment : No qualifying data available. Living Situation : Home Patient Lives With : Spouse Is the Patient a Caregiver at Home? : No Emergency Contact #1 : Clari Phillips Emergency Contact #1 Emergency Contact #1 Relationship : Emergency Contact #2 : N/A Emergency Contact #2 Phone Number : N/A Emergency Contact #2 Relationship : N/A Enter Doctors Name : Jak Does Patient have PCP Listed? : Yes Legal Guardian : No SUSAN SIN Rn-Agricultural Economics Teacher - 07/30/2019 16:37 EDT Initial Assessment II Sensory and Motor Deficits : None Current Home Treatments and Equipment : Wheelchair Services and Community Resources Addl Comments : history of home health from [facility] SUSAN SIN Rn-Agricultural Economics Teacher - 07/30/2019 16:37 EDT Discharge Needs I Anticipated Discharge Date : 07/31/2019 EDT Anticipated Discharge To, CM : Home with home health, Rehabilitation Unit Current Home Treatment/Equipment : Current Home Treatment/Equipment No qualifying data available. Post Acute/Home Treatments : Pa catheter, Other: bariatric walker and bariatric bed side commode Documentation Status Complete : Yes SUSAN SIN Rn-Agricultural Economics Teacher - 07/30/2019 16:37 EDT Discharge Needs II Professional Skilled Services : Professional Skilled Services No qualifying data available. Services and Community Resources : Home Health Needs Assistance with Transportation : No Discharge Options Discussed with Patient : Discharge transportation, DME, Home Health, Outpatient services, Short term rehabilitation SUSAN SIN Rn-Agricultural Economics Teacher - 07/30/2019 16:37 EDT Electronically signed by Millie Sebastian Conversion Technical Support Technician Cerner at 07/26/2022 6:22 PM CDT documented in this encounter Plan of Treatment Not on file documented as of this encounter Visit Diagnoses Not on filedocumented in this encounter
--- OUTSIDE RECORDS SUMMARY | 2025-02-06 12:33 | XMS_ITS | Encounter Summary ---
Author Organization [employer] ([place], [place], [place], [place]) Address [address] [place] [address] Care Team Providers Care Radiology Resident Name Role Phone Unavailable Primary Care Provider Unavailabl e Encounter Details Date Type Department Care Team (Late st Contact Info) Description 07/31/2019 Transcribed Document [facility] [place] Medicine [address] [place] [address] ProviderTobias MD [address] [place] [address] Social History Tobacco Use Types [...] Conversion Note - Historical ProviderMD - 07/31/2019 10:08 AM CDT Patient: AVI PHILLIPS Age: 69 Years Sex: Male : 1950 Subjective Chief Complaint: No complaints Physical Exam (1, 6, 12) General: [Alert [...] mood and affect]. Vitals & Measurements T: 36.6 ??C TMIN: 36.5 ??C TMAX: 36.9 ??C HR: 78(Monitored) RR: 18 BP: 165/86 SpO2: 98% Intake & Output Intake & Output Totals Last 24 Hours (7a-7a) Intake (2 Events) Medications (4 mL) Output (6 Events) Pa Catheter (1850 mL) Urine Voided (Volume) (1450 mL) Input Total: 4 mL Output Total: 3300 mL Balance: -3296 mL Assessment/Plan 1. Sick sinus syndrome, moderately severe sinus bradycardia that has been persistent, recurrent. 2. Multiple ventricular ectopic beats. He is on some treatment for that. 3. History of atrial fibrillation, resume Diltiazem and Bisoprolol to avoid rebound tachycardia 4. Hematuria, resolved. 5. Borderline hyperthyroidism. Plan: resume Bisoprolol and Diltiazem at lower dose for now, will need dual chamber pacemaker secondary to SSS pauses and bradycardia on monitor, hospital constraints at this time do no allow lab time, will plan for pacemaker on afternoon Medications Inpatient allopurinol, 300 mg= 1 Tab, [...] / L 28.9 \ Diagnostic Results EKG Tele 74 Electronically signed by Romulo, Millie Conversion Milling Machine Set Up Operator Cerner at 07/26/2022 6:22 PM CDT documented in this encounter Plan of Treatment Not on file documented as of this encounter Visit Diagnoses Not on filedocumented in this encounter
--- OUTSIDE RECORDS SUMMARY | 2025-02-06 12:33 | XMS_ITS | Encounter Summary ---
Author Organization [employer] ([place], [place], [place], [place]) Address [address] [place] [address] Care Team Providers Care Freelance Web Designer Name Role Phone Unavailable Primary Care Provider Unavailabl e Encounter Details Date Type Department Care Team (Late st Contact Info) Description 07/31/2019 Transcribed Document [facility] [place] [address] [place] [address] ProviderTobias MD [address] [place] [address] Social History Tobacco Use Types [...] Conversion Note - Historical ProviderMD - 07/31/2019 11:43 AM CDT Patient: AVI PHILLIPS Age: 69 [...] PRN: Nausea allopurinol: 300 mg, Oral, Daily bisoprolol: 5 mg, Oral, Daily dilTIAZem: 240 mg, Oral, Daily finasteride: 5 mg, Oral, [...] 1 Tab, Oral, Daily, 0 Refill(s), Medications (15) Active Scheduled: (9) allopurinol 300 mg tab 300 mg 1 Tab, Oral, Daily bisoprolol 5 mg tab 5 mg 1 Tab, Oral, Daily diltiazem CR24 240 mg cap 240 mg 1 Cap, Oral, Daily famotidine 20 mg/2 mL inj [...] At risk for sleep apnea / IMO [id number] / Confirmed, Active Problems (8) Allergic rhinitis Arthritis At risk for sleep apnea Atrial fibrillation Cataract Gout Hyperlipidemia Hypertension Physical Examination VS/Measurements Vitals Signs (last 24 hrs) Last Charted Minimum Maximum Temp 97.8 (JUL 30 05:30) 97.8 (JUL 30 05:30) 98.4 (JUL 29 14:51) Mon HR 78 (JUL 30 08:03) 77 (JUL 30 02:26) 84 (JUL 29 23:00) Resp Rate 18 (JUL 30 05:30) 18 (JUL 29 23:00) 20 (JUL 29 14:51) SBP H 165 (JUL 30 05:30) 132 (JUL 30 02:26) H 178 (JUL 29 14:51) DBP 86 (JUL 30 05:30) 74 (JUL 29 18:05) H 96 (JUL 29 14:51) MAP 100 (JUL 30 05:30) 80 (JUL 29 18:05) 133 (JUL 29 14:51) SpO2 98 (JUL 30 08:03) 98 (JUL 30 08:03) 98 (JUL 30 08:03) Gen: Alert and oriented. NAD HEENT : NC/AT Neck: Supple, No JVD LUngs : CTA bilaterally. Non labored respiration CVS: RRR, No murmur Abd: SOft, Non tender, Obese, BS+ Ext: No edema, no cyanosis PHARM TECH: no focal deficit noted. Alert. Review / Management Results review: Labs (Last four charted values) WBC 7.1 (JUL 27) H 11.0 (JUL 26) H 12.0 (JUL 26) HB L 9.6 (JUL 27) L 10.7 (JUL 26) L 11.8 (JUL 26) HCT L 28.9 (JUL 27) L 32.1 (JUL 26) L 35.4 (JUL 26) Plt L 152 (JUL 27) 176 (JUL 26) 176 (JUL 26) Na 136 (JUL 30) 138 (JUL 29) 141 (JUL 28) 144 (JUL 18) K 4.3 (JUL 30) 4.3 (JUL 29) 4.5 (JUL 28) 4.5 (JUL 27) Cl 108 (JUL 30) 109 (JUL 29) 112 (JUL 28) H 117 (JUL 18) CO2 23 (JUL 30) 24 (JUL 20) 24 (JUL 19) 24 (JUL 18) BUN 17 (JUL 30) H 25 (JUL 20) H 33 (JUL 19) H 60 (JUL 18) Cr 1.10 (JUL 30) 1.30 (JUL 20) H 1.40 (JUL 28) H 1.90 (JUL 18) Glu R 87 (JUL 30) 84 (JUL 29) 96 (JUL 28) 98 (JUL 18) Ca 9.4 (JUL 30) 9.2 (JUL 29) 9.0 (JUL 28) 8.9 (JUL 18) Lactic 1.0 (JUL 17) PT 10.7 (JUL 17) INR 1.0 (JUL 17) AST 16 (JUL 30) 19 (JUL 29) 22 (JUL 28) 27 (JUL 27) ALT 16 (JUL 30) L 15 (JUL 29) 18 (JUL 28) 17 (JUL 27) ALK P 69 (JUL 30) 60 (JUL 29) 60 (JUL 28) 59 (JUL 27) T Bili 0.4 (JUL 30) 0.7 (JUL 29) 0.3 (JUL 28) 0.3 (JUL 27) PTN 6.8 (JUL 30) L 6.3 (JUL 29) 6.7 (JUL 28) 6.5 (JUL 27) ALB L 2.7 (JUL 30) L 2.6 (JUL 29) L 2.7 (JUL 28) L 2.7 (JUL 27) . JUL 30 03:36 136 108 17 / 87 4.3 23 1.10 \ Impression and Plan Dx and Plan [...] - Avoid nephrotoxic agents. - Renal diet. Follow up with [facility] in 2-3 weeks with renal function panel, cbc and UA 1 week prior to appointment. documented in this encounter Plan of Treatment Not on file documented as of this encounter Visit Diagnoses Not on filedocumented in this encounter
--- OUTSIDE RECORDS SUMMARY | 2025-02-06 12:33 | XMS_ITS | Encounter Summary ---
Author Organization [email or web address] ([place], [place], [place], [place]) Address [address] [place] [address] Care Team Providers Care Laboratory Cureman Name Role Phone Unavailable Primary Care Provider Unavailabl e Encounter Details Date Type Department Care Team (Late st Contact Info) Description 07/28/2019 Transcribed Document [facility] [place] [address] [place] [address] ProviderTobias MD [address] [place] [address] Social History Tobacco Use Types [...] Conversion Note - Historical ProviderMD - 07/28/2019 1:10 PM CDT Treatment Intervention, OT Entered On: 07/30/2019 11:36 EDT Performed On: 07/30/2019 9:20 EDT by GEETA GUEVARA COTA General Information, OT Visit Type, OT : Treatment Note Patient Orders : Order Date Order Ordering 07/27/2019 12:53 Consult to Occupational Therapy Ordered By: ARNOLDO VALLADARES MD-INT 07/28/2019 13:10 Occupational Therapy Additional Tx Ordered By: Active Diagnoses : No Qualifying Diagnoses Therapy Diagnosis, OT : Decreased I/ADL status; functional mobility Admission Date : 07/27/2019 00:54 Co-treated by, OT : Physical Therapist Personal Devices : Personal Devices No Devices Recorded Assistive Devices : Assistive Devices No Devices Recorded Precautions in Place : Fall prevention measures GEETA GUEVARA COTA - 07/30/2019 11:31 EDT General Status Patient Received Status : Supine in bed Treatment Start Time : 07/30/2019 8:57 EDT Patient Left Status : Up in chair, RN/PCT informed, Communication board completed, All needs met and within reach Treatment End Time : 07/30/2019 9:20 EDT Treatment Time : 23 Minute(s) GEETA GUEVARAADOLPH 07/30/2019 11:31 EDT Functional Mobility Mobility Grid Bed Roll Left : Supervision/set-up Bed Scooting : Supervision/set-up Supine to Sit : Supervision/set-up Sit to Stand : Rehab Minimal assistance (Comment: 2 [GEETA GUEVARA COTA - 07/30/2019 11:31 EDT] ) GEETA GUEVARA COTA - 07/30/2019 11:31 EDT Plan of Care, OT OT Tx Plan/Goals Established w Patient : Yes ISMAEL ADOLPH CONNOR - 07/30/2019 11:31 EDT Flour Tester Goals, OT Dressing, Lower Body LTG Grid Goal #1 Activity : Dressing, Lower Body Assist : Assist, moderate Date to Meet : 08/11/2019 EDT Goal Status : Initial goal GEETA GUEVARA COTA - 07/30/2019 11:31 EDT Toileting LTG Grid Goal #1 Activity : Toileting Assist : Assist, minimal Date to Meet : 08/11/2019 EDT Goal Status : Initial goal GEETA GUEVARA COTA - 07/30/2019 11:31 EDT Toilet Transfer LTG Grid Goal #1 Activity : Toilet Transfer, Ambulatory Assist : Supervision or set up Date to Meet : 08/11/2019 EDT Goal Status : Progressing, continue GEETA GUEVARA COTA - 07/30/2019 11:31 EDT Bed Mobility/ Bed Transfer LTG Grid Goal #1 Activity : Bed Mobility/Bed Transfer Assist : Independent, modified Date to Meet : 08/11/2019 EDT Goal Status : Progressing, continue GEETA GUEVARA COTA - 07/30/2019 11:31 EDT Treatment Note Subjective Comment : TETO Amor okd session Patient's Response to Treatment : Client is pleasant and motivated Additional Objective Information : Client was supine in bed. SUP/MIN A to EOB. Client stood with gaitbelt and RW at MIN A of 2. Ambulate 62ft with MOD cues to stay in walker. Client slow paced. Placed up in recliner. Washed face at s/u. Andrea AROM to BUEs at 1 set of 10 reps through all planes. CL in place. Assessment : progressing toward goals. Benefit from short stay rehab prior to home to increase endurance, transfers and I with ADLS Plan for Treatment : continue with POC ISMAEL ADOLPH CONNOR - 07/30/2019 11:31 EDT Pain Assessment Pain Scaled Used : 0-10 Pain scale Pain Score Pre-Intervention : 0 GEETA GUEVARA COTA - 07/30/2019 11:31 EDT Image 1 - Images currently included in the form version of this document have not been included in the text rendition version of the form. Anticipated Discharge Needs, OT/PT Anticipated Discharge to : Unit, rehabilitation ISMAEL ADOLPH CONNOR - 07/30/2019 11:[address] [facility] OT Charges FARFAN OT Selfcare/Hm Mgmt Ea 15 Min-FARFAN : 2 GEETA GUEVARA COTA - 07/30/2019 11:31 EDT documented in this encounter Plan of Treatment Not on file documented as of this encounter Visit Diagnoses Not on filedocumented in this encounter
--- OUTSIDE RECORDS SUMMARY | 2025-02-06 12:33 | XMS_ITS | Encounter Summary ---
Author Organization [facility] Address [address] [place] [address] Care Team Providers Care Window Glazier Name Role Phone Henrry Vegas MD Primary Care Provider + [phone] Zackary Smith MD Unavailable [phone] Hector Henry Unavailable Reason for Referral * Consultation (Routine) - Closed Specialty Diagnoses / Procedures Referred By Contac t Referred To Contact Oral Surgery Diagnoses Oroantral communication Matthew Triana DMD [address] [place] [address] Phone: tel: fax: [facility] [address] [place] [address] [address] [place] [address] Phone: tel: Referral ID Status Reason Start Date Expiration Date V isits Requested Visits Authorized [id number] Closed Specialty Services Required 11/24/2023 05/25/2025 1 1 Encounter Details Date Type Department Care Team (Late st Contact Info) Description 11/24/2023 Community Orders Community Practice [address] [place] [address] Matthew Triana DMD [address] [place] [address] Oroantral communication (Primary Dx) Social [...] Primary documented in this encounter Care Teams Window Glazier Relationship Specialty Start Date End Date Henrry Vegas MD [address] [facility] [address] [address] PCP - General 08/22/20 Zackary Smith MD [address] [address] Chemistry Professor 12/27/23 Hector Henry PA [address] [id number] Chemistry Professor 12/27/23 documented as of this encounter
--- OUTSIDE RECORDS SUMMARY | 2025-02-06 12:33 | XMS_ITS | Encounter Summary ---
Author Organization [employer] ([place], [place], [place], [place]) Address [address] [place] [address] Care Team Providers Care Supervisor Policy Change Clerks Name Role Phone Unavailable Primary Care Provider Unavailabl e Encounter Details Date Type Department Care Team (Late st Contact Info) Description 07/30/2019 Transcribed Document [facility] [place] [address] [place] [address] ProviderTobias MD [address] [place] [address] Social History Tobacco Use Types [...] Conversion Note - Historical ProviderMD - 07/30/2019 2:00 AM CDT Runner On Details Entered On: 07/30/2019 0:29 EDT Performed On: 07/30/2019 2:00 EDT by Samra Chavez RN-TRAVELER Order Details Transport Mode Order Detail : Bed (including specialty) Isolation Precautions Order Detail : Standard Precautions Order Detail : N/A IV Order Detail : 0 Oxygen Order Detail : 0 Nurse Collect Order Detail : 0 Lift/Transfer : Moderate assist Central Line Order Detail : No Room Service : Not Appropriate Arterial Line : No Samra Chavez RN-TRAVELER - 07/30/2019 0:29 EDT Electronically signed by Millie Sebastian Conversion Medication Reconciliation Technician Cerner at 07/26/2022 6:22 PM CDT documented in this encounter Plan of Treatment Not on file documented as of this encounter Visit Diagnoses Not on filedocumented in this encounter
--- OUTSIDE RECORDS SUMMARY | 2025-02-06 12:33 | XMS_ITS | Encounter Summary ---
Author Organization [employer] ([place], [place], [place], [place]) Address [address] [place] [address] Care Team Providers Care Miller Apprentice Name Role Phone Unavailable Primary Care Provider Unavailabl e Encounter Details Date Type Department Care Team (Late st Contact Info) Description 07/29/2019 Transcribed Document [facility] [place] Family Medicine [address] [place] [address] ProviderTobias MD [address] [place] [address] Social History Tobacco Use Types [...] Note - Historical ProviderMD - 07/29/2019 5:00 PM CDT Chart Check - Review Order Profile Entered On: 07/29/2019 18:49 EDT Performed On: 07/29/2019 17:00 EDT by Zuleyma Griffiths, RN Chart Check Powerplans Initiated/Discontinued as Appropriate : Yes All Active Orders Reviewed : Yes Zuleyma Griffiths, RN - 07/29/2019 18:48 EDT documented in this encounter Plan of Treatment Not on file documented as of this encounter Visit Diagnoses Not on filedocumented in this encounter
--- OUTSIDE RECORDS SUMMARY | 2025-02-06 12:33 | XMS_ITS | Encounter Summary ---
Author Organization [employer] ([place], [place], [place], [place]) Address [address] [place] [address] Care Team Providers Care Supervisor Canvas Products Name Role Phone Unavailable Primary Care Provider Unavailabl e Encounter Details Date Type Department Care Team (Late st Contact Info) Description 07/27/2019 Transcribed Document [facility] [place] [address] [place] [address] ProviderTobias MD [address] [place] [address] Social History Tobacco Use Types [...] Conversion Note - Tobias Gamino MD - 07/27/2019 2:36 AM CDT Patient: AVI SKY Age: 69 Years Sex: Male : 1950 Chief Complaint weakness, bradycardia Primary Care Provider History of Present Illness Avi Sky is a 69-year-old male with a history of hypertension, hyperlipidemia, atrial fibrillation, gout, and chronic kidney disease stage III who presented to [facility] with weakness and fatigue. The patient is somewhat of a poor historian, so additional information is obtained from review of available medical records and discussion with the accepting physician. The patient reportedly presented to [facility] with a 2-week history of weakness, dizziness, nausea, vomiting, and diarrhea. He has chronic kidney disease with a baseline creatinine anywhere from 1.6-1.9. He came via EMS for evaluation, was found to be hypotensive and with atrial fibrillation with slowed ventricular response and a heart rate of 36. Screening lab work showed him to be in acute renal failure with a creatinine of 5.3, a potassium of 7.4, bicarbonate of 15. He did not receive any atropine, but his heart rate did improve up to the 70s shortly after his arrival. He was given multiple medications for hyperkalemia, which improved his potassium to 6.8. He did have a stat echocardiogram done in the ER, which showed an LVEF of 55%, as well as possible mild aortic stenosis and mild mitral regurgitation. He was transferred to our facility to the intensive care unit for evaluation by nephrology. Lab work upon arrival showed improvement in his potassium to 6.7 and a creatinine of 3.9. The patient was given additional medication for hyperkalemia. He was started on IV fluids. He does have a history of a left renal mass, was found to have some hematuria in his Pa bag upon arrival, so a CT scan of his abdomen pelvis was ordered for further evaluation. The patient is hemodynamically stable, in atrial fibrillation with a rate in the 70s and a systolic blood pressure in the 130s. Nephrology has been consulted for assistance in management. Review of Systems Constitutional: No fevers, chills, reports weakness, fatigue Eye: No blurry vision, no discharge HEENT: No sore throat, no nasal congestion Respiratory: No cough, no shortness of breath Cardiovascular: No Chest pain, no palpitations Gastrointestinal: reports nausea, vomiting Genitourinary: No hematuria, no dysuria Saul/Lymph: Negative for bruising tendency, no nosebleeds Endocrine: Negative for excessive thirst, no excessive urination Musculoskeletal: No back pain, no leg pain Integumentary: No rash, no pruritus Neurologic: No weakness, no numbness Psychiatric: No anxiety, depression Vital Signs T: 36.8 ??C HR: 90(Monitored) RR: 27 BP: 130/63 SpO2: 97% WT: 119.7 kg Oxygen Settings (Last) No qualifying data available. Physical Exam General: Alert and oriented, no acute distress, somewhat confused, poor historiian Neurologic: Awake, alert, and oriented X3, no apparent focal deficits Eye: EOMI, normal conjunctiva HENT: Normocephalic, atraumatic Neck: no carotid bruits, no JVD Lungs: Clear to auscultation, non-labored respiration Heart: irregularly irregular, no murmur Abdomen: Soft, non-tender, non-distended, normal bowel sounds Musculoskeletal: Normal range of motion and strength, no tenderness or swelling Skin: Skin is warm, dry, no rashes or lesions Psychiatric: Cooperative, appropriate mood and affect Assessment/Plan Sinus bradycardia, 2/2 hyperkalemia/ARF - HR initially in 30s, improved to 70s NSR w/ correction of K - initial potassium 7.4 at OSH, improved w/ tx - K down to 6.7. Give additional 10u IV insulin, dextrose, bicarb, calcium, kayexalate - nephrology consulted Acute kidney injury on CKD3, likely prerenal - baseline Cr 1.6-1.9 per records. Cr 5.3 on presentation, improving w/ IVF - avoid nephrotoxic agents, trend renal indices - IVF w/ NS at 100 cc/hr - check CT abdomen/pelvis to r/o obstructive uropathy, additionally in light of hematuria, hx of L renal mass Chronic atrial fibrillation - on eliquis, hold pending CT scan results - BB/CCB held for hypotension/bradycardia Hypertension - hold home meds in light of recent hypotension and bradycardia. Per notes he is on BB and CCB. Medications, labs, imaging, and available medical records reviewed. Discussed with accepting physician, AUTHORIZATION REP. Time spent: 45 minutes Dictated using [employer] Speech Recognition software - unidentified physicist solid state errors may be present. DVT ppx: SCDs GI ppx: pepcid Diet: NPO pending CT abd/pelvis results Code status: Resuscitation Status - Ordered -- Start: 07/27/19 1:12:00 EDT, Full Code, Continuous Order Orders: famotidine, 20 mg, IV Push, Inj, BID, Routine, Start 07/27/19 9:00:00 EDT hydrALAZINE, 10 mg, IV Push, Inj, Q6H, PRN for Hypertension, Routine, Start 07/27/19 1:12:00 EDT insulin regular, Scale A, SubCutaneous, Inj, Q6H, Routine, Start 07/27/19 6:00:00 EDT ondansetron, 4 mg, IV Push, Inj, Q6H, PRN for Nausea, Routine, Start 07/27/19 1:12:00 EDT Sodium Chloride 0.9% intravenous solution 1,000 mL, 1,000 mL, Bag Volume (mL) = 1,000, IntraVENous, Rate = 100 mL/Hr, start date 07/27/19 1:59:00 EDT, Routine Bedrest Cardiac Monitoring CBC w/ Auto Diff CBC w/ Auto Diff CMP Comprehensive Metabolic Panel CMP Comprehensive Metabolic Panel Consult to Physician CT Abdomen Pelvis WO Culture Blood Culture Blood Diabetes Education (Nursing) DVT VTE Prophylaxis Education ECG Facility Protocol Fall Risk/Fall Prevention Protocol Hemoglobin A1C Intake and Output Strict Lab Order Instructions to Nursing Lab Order Instructions to Nursing Magnesium Level Magnesium Level Notify Provider Notify Provider of Change in Patient Condition Notify Provider of Change in Patient Condition Notify Provider Vital Signs NPO (immediate) Oxygen Therapy Oxygen Therapy Oxygen Therapy Oxygen Therapy POC Glucose Pulse Oximetry Continuous Monitoring Respiratory Distress Instructions Resuscitation Status Sequential Compression Device T4 Free Vital Signs VTE Prophylaxis - Medical Sequential Compression Device Start: 07/27/19 1:12:00 EDT, Bilateral, Length: Knee High, While patient is in bed, Continuous Order ([place] [facility]) Problem List/Past Medical History Ongoing Allergic rhinitis Arthritis Atrial fibrillation Cataract Gout Hyperlipidemia Hypertension Historical No qualifying data Procedure/Surgical History appy, back surgery, fatty tissue removed under right arm, hernia repair. Home Medications (11) Active allopurinol 300 mg, Oral, Daily bisoprolol 10 mg, Oral, Daily Claritin 10 mg, Oral, Daily Diltiazem Hydrochloride ER 360 mg, Oral, Daily Eliquis 5 mg, Oral, BID furosemide 40 mg, Oral, Daily hydrALAZINE 25 mg, Oral, TID lisinopril 40 mg, Oral, BID Non Formulary Medication See Instructions One A Day Men 50 Plus 1 Tab, Oral, Daily potassium chloride extended release 20 mEq, Oral, Daily Allergies Lortab penicillin Social History Alcohol Alcohol Use History No. Substance Abuse Drug Use Hx: No. Tobacco Use in Last 12 Months: No. Smoking Status Former smoker. Last Used: quit 8 years ago. Family History heart disease Lab Results Test Name Test Result Date/Time Sodium Level 140 mmol/L 07/27/2019 01:12 EDT Potassium Level 6.7 mmol/L (Critical) 07/27/2019 01:12 EDT Chloride Level 117 mmol/L (High) 07/27/2019 01:12 EDT Carbon Dioxide Level 20 mmol/L (Low) 07/27/2019 01:12 EDT Anion Gap 10 07/27/2019 01:12 EDT Glucose Level 107 mg/dL (High) 07/27/2019 01:12 EDT Blood Urea Nitrogen 88 mg/dL (Critical) 07/27/2019 01:12 EDT Creatinine Level 3.90 mg/dL (High) 07/27/2019 01:12 EDT eGFR 19 mL/min/1.73m2 (Low) 07/27/2019 01:12 EDT eGFR NonAfrican 15 mL/min/1.73m2 (Low) 07/27/2019 01:12 EDT Bun/Creatinine 22.6 (High) 07/27/2019 01:12 EDT Calcium Level 9.9 mg/dL 07/27/2019 01:12 EDT Protein Total 7.3 Gram/dL 07/27/2019 01:12 EDT Albumin Level 3.3 Gram/dL (Low) 07/27/2019 01:12 EDT Globulin 4.0 Gram/dL 07/27/2019 01:12 EDT A/G Ratio 0.8 (Low) 07/27/2019 01:12 EDT Bilirubin Total 0.5 mg/dL 07/27/2019 01:12 EDT Alk Phos 68 Units/Liter 07/27/2019 01:12 EDT AST 19 Units/Liter 07/27/2019 01:12 EDT ALT 16 Units/Liter 07/27/2019 01:12 EDT Device Comment 1 Notified Nurse RBV 07/27/2019 02:05 EDT Glucose POC2 111 mg/dL (High) 07/27/2019 02:05 EDT Lactic Acid Level 1.0 mmol/L 07/27/2019 01:12 EDT ProBNP 130 pg/mL (High) 07/27/2019 01:12 EDT WBC 12.0 K/uL (High) 07/27/2019 01:07 EDT RBC 3.54 Million/uL (Low) 07/27/2019 01:07 EDT Hgb 11.8 g/dL (Low) 07/27/2019 01:07 EDT Hct 35.4 % (Low) 07/27/2019 01:07 EDT MCV 100.0 fL (High) 07/27/2019 01:07 EDT MCH 33.3 pg (High) 07/27/2019 01:07 EDT MCHC 33.3 Gram/dL 07/27/2019 01:07 EDT Platelet Count 176 K/uL 07/27/2019 01:07 EDT MPV 11.3 fL 07/27/2019 01:07 EDT RDW 15.4 % (High) 07/27/2019 01:07 EDT Neut % 84.1 % (High) 07/27/2019 01:07 EDT Neut # 10.15 K/uL (High) 07/27/2019 01:07 EDT Lymph % 8.0 % (Low) 07/27/2019 01:07 EDT Lymph # 0.96 x10(3)/uL (Low) 07/27/2019 01:07 EDT Mccone % 7.0 % 07/27/2019 01:07 EDT Mccone # 0.84 K/uL 07/27/2019 01:07 EDT Eos % 0.1 % 07/27/2019 01:07 EDT Eos # 0.01 x10(3)/uL 07/27/2019 01:07 EDT Baso % 0.2 % 07/27/2019 01:07 EDT Baso # 0.02 x10(3)/uL 07/27/2019 01:07 EDT Slide Review No 07/27/2019 01:07 EDT IG# 0.07 x10(3)/uL (High) 07/27/2019 01:07 EDT IG% 0.60 % 07/27/2019 01:07 EDT PT 10.7 Second(s) 07/27/2019 01:07 EDT INR 1.0 07/27/2019 01:07 EDT Procalcitonin <0.25 ng/mL 07/27/2019 01:12 EDT TSH 0.175 mcInt Units/mL (Low) 07/27/2019 01:12 EDT Additional Documentation Code Status Start: 07/27/19 1:12:00 EDT, Full Code, Continuous Order Electronically signed by [facility] Conversion Epitaxial Reactor Operator Cerner at 07/26/2022 6:29 PM CDT documented in this encounter Plan of Treatment Not on file documented as of this encounter Visit Diagnoses Not on filedocumented in this encounter
--- OUTSIDE RECORDS SUMMARY | 2025-02-06 12:33 | XMS_ITS | Encounter Summary ---
Author Organization [employer] ([place], [place], [place], [place]) Address [address] [place] [address] Care Team Providers Care Parts Counterperson Name Role Phone Unavailable Primary Care Provider Unavailabl e Encounter Details Date Type Department Care Team (Late st Contact Info) Description 07/30/2019 Transcribed Document [facility] [place] [address] [place] [address] ProviderTobias MD [address] [place] [address] Social History Tobacco Use Types [...] Conversion Note - Historical ProviderMD - 07/30/2019 3:10 PM CDT Patient: AVI PHILLIPS Age: 69 Years Sex: Male : 1950 Patient seen and examined, full dictation to follow documented in this encounter Plan of Treatment Not on file documented as of this encounter Visit Diagnoses Not on filedocumented in this encounter
--- OUTSIDE RECORDS SUMMARY | 2025-02-06 12:33 | XMS_ITS | Encounter Summary ---
Author Organization [employer] ([place], [place], [place], [place]) Address [address] [place] [address] Care Team Providers Care Community Recreation Programmer Name Role Phone Unavailable Primary Care Provider Unavailabl e Encounter Details Date Type Department Care Team (Late st Contact Info) Description 07/29/2019 Transcribed Document [facility] [place] [address] [place] [address] ProviderTobias MD [address] [place] [address] Social History Tobacco Use Types [...] Conversion Note - Historical ProviderMD - 07/29/2019 2:00 AM CDT Customer Training Specialist Details Entered On: 07/29/2019 5:53 EDT Performed On: 07/29/2019 2:00 EDT by ELISA WHITLEY RN Order Details Transport Mode Order Detail : Stretcher/Gurney Isolation Precautions Order Detail : Standard Precautions Order Detail : N/A IV Order Detail : 0 Nurse Collect Order Detail : 0 Lift/Transfer : Moderate assist Central Line Order Detail : No Room Service : Not Appropriate Arterial Line : No ELISA WHITLEY, RN - 07/29/2019 5:53 EDT documented in this encounter Plan of Treatment Not on file documented as of this encounter Visit Diagnoses Not on filedocumented in this encounter
--- OUTSIDE RECORDS SUMMARY | 2025-02-06 12:33 | XMS_ITS | Encounter Summary ---
Author Organization [employer] ([place], [place], [place], [place]) Address [address] [place] [address] Care Team Providers Care Circuit Judge Name Role Phone Unavailable Primary Care Provider Unavailabl e Encounter Details Date Type Department Care Team (Late st Contact Info) Description 07/30/2019 Transcribed Document [facility] [place] [address] [place] [address] ProviderTobias MD [address] [id number] Social History Tobacco Use Types Packs/Day Years Used Date Smoking Tobacco: Never Assessed Sex and Gender Information Value Date Recorded Sex Assigned at Male 10/08/2021 11:56 AM CDT Legal Sex Male 6:58 PM CDT Gender Identity Male 10/08/2021 11:56 AM CDT Sexual Orientation Not on file documented as of this encounter Miscellaneous Notes * Cerner Conversion Note - Historical ProviderMD - 07/30/2019 1:02 PM CDT Consult Phone Call Documentation Entered On: 07/30/2019 15:03 EDT Performed On: 07/30/2019 13:02 EDT by Thu Fish RN Phone Call for Consults Consult Phone Call/Page Attempt : First call Consult Reason : bradycardia Physician Requesting Consult : Alex Ball MD Physician Requested for Consult : VIOLETA SHARMA MD-[facility] Provider Service Notified Name : Cardiology Thu Fish RN - 07/30/2019 14:57 EDT documented in this encounter Plan of Treatment Not on file documented as of this encounter Visit Diagnoses Not on filedocumented in this encounter
--- OUTSIDE RECORDS SUMMARY | 2025-02-06 12:33 | XMS_ITS | Data Portability ---
Author Organization [facility] JEANNETTE PrasadS GREER CLOSED Address [address] [place] [address] Care Team Providers Care [employer] Name Role Phone BRANDT DENNIS Urologist BRANDT FOSTER Primary Care Provider Assessment Encounter Date Assessment Date Assessment LastModified by Organization Details LastModified Time 12/19/2019 12/19/2019 69 year-old male with a history of BPH, renal cysts, chronic kidney disease, acute kidney injury, and gout. He has been on tamsulosin and finasteride. CT scans in 2019 showed a left lower pole high attenuation cyst and bilateral simple renal cysts. We discussed the results of his current CT scan which showed the renal cysts are stable. The left lower pole high attenuation cyst is non-enhancing and not suspicious for malignancy. I reviewed the CT scan myself and agree with the findings. He is reasonably satisfied with his voiding symptoms on tamsulosin and finasteride. I recommend a screening PSA. Plan: Continue tamsulosin and finasteride. Check PSA. Follow-up in one year. [email or web address] Not available 12/19/2019 12:20:32 Plan of Treatment Reminders Order Date Submit Date Provider Last Modified By Organization Details Last Modified Time Details Appointments None recorded. Lab urinalysis, dipstick 2019 020 [email or web address] Not available 0 12:19:31 Referral None recorded. Procedures None recorded. Surgeries None recorded. Imaging electrocard iogram 2019 joyce [facility], [address], [place], [address], 0 14:12:29 Medication Orders Stiolto Respimat 2.5 mcg-2.5 mcg/actuati on solution for inhalation 2020 021 [email or web address] 1 [facility], [address], [place], [address], 1 16:15:16 Anoro Ellipta 62.5 mcg-25 mcg/actuati on powder for inhalation 2019 020 [email or web address] 5 [facility], [address], [place], [address], 1 12:35:37 Patient TargetsNo targets recorded. Patient Instructions Encounter Date Encounter Id Patient Instructions Last Modified By Organization Details Last Modified Time 12/06/2019 [id number] body mass index: care instructions Not available 12/06/2019 14:03:44 high blood pressure: care instructions Not available 12/06/2019 14:03:44 12/18/2019 [id number] chronic obstructive pulmonary disease (COPD): care instructions Not available 12/18/2019 13:39:25 learning about copd and how to prevent lung infections Not available 12/18/2019 13:39:25 03/18/2020 [id number] chronic obstructive pulmonary disease (COPD): care instructions Not available 03/18/2020 14:24:23 learning about copd and how to prevent lung infections Not available 03/18/2020 14:24:23 09/16/2020 [id number] chronic obstructive pulmonary disease (COPD): care instructions Not available 09/16/2020 14:22:31 learning about copd and how to prevent lung infections Not available 09/16/2020 14:22:31 Reason for Referral None Reported. Results Created Date Observation Date Name Description Value Unit Range Abnormal Flag Note LastModifiedBy Organization Detail LastModifiedTime 12/18/19 20 12/18/2019 lung cance r scree peter eligi bilit y asses sment * Age 55-77 YES Not Available [facility] [address], [address], 12/18/2019 13:33:23 12/18/19 20 12/18/2019 lung cance r scree peter eligi bilit y asses sment * Either current smoker or have quit within last 15 years YES Not Available [facility] [address] [address], [place], [address], 12/18/2019 13:33:23 12/18/19 20 12/18/2019 lung cance r scree peter eligi bilit y asses sment * Average of one pack a day for 30 yrs. (30 pack years) YES Not Available [facility] [address] [place] [address], [place], [address], 12/18/2019 13:33:23 12/18/19 20 12/18/2019 lung cance r scree peter eligi bilit y asses sment * Displays signs or symptoms of Lung cancer NO Not Available [facility] [address] [address], [place], [address], 12/18/2019 13:33:23 12/18/19 20 12/18/2019 lung cance r scree peter eligi bilit y asses sment * Shared decision making with pt. Risk & Benefits of CT lung screen discussed YES Not Available [facility] [address] [address], [place], [address], 12/18/2019 13:33:23 12/18/19 20 12/18/2019 lung cance r scree peter eligi bilit y asses sment * Smoking cessation counseling provided YES Not Available [facility] [address] [place] [address], [place], [address], 12/18/2019 13:33:23 12/18/19 20 12/18/2019 lung cance r scree peter eligi bilit y asses sment * Order provided for LDCT YES Not Available [facility] [address] [facility] [address], [place], [address], 12/18/2019 13:33:23 12/19/19 20 12/19/2019 BMP, serum or plasm a glucose 126 mg/dL 74-100 high Not Available [facility] [address] [place] [address], [address], 12/19/2019 13:07:08 12/19/19 20 12/19/2019 BMP, serum or plasm a blood urea nitrogen 16 mg/dL 6-20 normal Not Available [facility] [address] [place] [address], [address], 12/19/2019 13:07:08 12/19/19 20 12/19/2019 BMP, serum or plasm a creatinine 1.01 mg/dL 0.70-1 .25 normal Not Available [facility] [address] [place] [address], [address], 12/19/2019 13:07:08 12/19/19 20 12/19/2019 BMP, serum or plasm a BUN/creatini ne ratio 16 (calc ) 10-20 normal Not Available [facility] [address] [place] [address], [address], 12/19/2019 13:07:08 12/19/19 20 12/19/2019 BMP, serum or plasm a sodium 143 mmol/ L 136-14 5 normal Not Available [facility] [address] [place] [address], [address], 12/19/2019 13:07:08 12/19/19 20 12/19/2019 BMP, serum or plasm a potassium 3.7 mmol/ L 3.4-5. 0 normal Not Available [facility] [address] [place] [address], [address], 12/19/2019 13:07:08 12/19/19 20 12/19/2019 BMP, serum or plasm a chloride 105 mmol/ L 98-107 normal Not Available [facility] [address] [place] [address], [address], 12/19/2019 13:07:08 12/19/19 20 12/19/2019 BMP, serum or plasm a carbon dioxide 26 mmol/ L 20-32 normal Not Available [facility] [address] [place], [address], 12/19/2019 13:07:08 12/19/19 20 12/19/2019 BMP, serum or plasm a anion gap 12 (calc ) 7-25 normal Not Available [facility] [address] [place] [address], [address], 12/19/2019 13:07:08 12/19/19 20 12/19/2019 BMP, serum or plasm a calcium 9.5 mg/dL 8.6-10 .2 normal Not Available [facility] [address] [place] [address], [address], 12/19/2019 13:07:08 12/19/19 20 12/19/2019 BMP, serum or plasm a GFR 86 >= 60 normal Not Available [facility] [address] [place], [address], 12/19/2019 13:07:08 12/19/19 20 12/19/2019 BMP, serum or plasm a GFR non- 75 >= 60 normal NOT E NEW calcu latio n for GFR is based on the Natio nal Kidne y Found ation CKD-E PI equat ion and allow s for repor ting GFR value s great er than 60 mL/mi n/1.7 3 m2. This calcu latio n has not been valid ated for patie nts less than 18 yrs., pregn ant women and Hispa nics. Chron ic kidne y disea se is defin ed as kidne y damag e or GFR less than 60 mL/mi n/1.7 3 m2 for 3 month s or longe r. Not Available [facility] [address] [place] [address], [address], 12/19/2019 13:07:08 12/19/19 20 12/19/2019 PSA, serum or plasm a prostate specific antigen 3.00 NG/mL 0.00-6 .50 normal Test metho d is based on WHO-s tanda rdize d calib ratio n using the Dwain Chandrakant E601 sandra zer. PSA resul ts from diffe rent test metho ds are not inter hsu eable . A singl e PSA scree peter test shoul d not be used as the sole evide nce of the prese nce or absen ce of disea se. Not Available [facility] [address] [place] [address], [address], 12/19/2019 13:14:26 12/19/1912/19/2019 urina lysis , dipst ick Unknown Analyte Yellow Not Available [facility] [address] [place] [address], [address], 12/19/2019 11:32:08 12/19/1912/19/2019 urina lysis , dipst ick Unknown Analyte Clear Not Available [facility] [address] [place], [address], 12/19/2019 11:32:08 12/19/19 20 12/19/2019 urina lysis , dipst ick Unknown Analyte 1.010 Not Available [facility] [address] [place], [address], 12/19/2019 11:32:08 12/19/19 20 12/19/2019 urina lysis , dipst ick Unknown Analyte 1.003 - 1.035 Not Available [facility] [address] [place], [address], 12/19/2019 11:32:08 12/19/19 20 12/19/2019 urina lysis , dipst ick Unknown Analyte 5.0 Not Available [facility] [address] [place], [address], 12/19/2019 11:32:08 12/19/19 20 12/19/2019 urina lysis , dipst ick Unknown Analyte 5.0 - 8.0 Not Available [facility] [address] [place], [address], 12/19/2019 11:32:08 12/19/19 20 12/19/2019 urina lysis , dipst ick Unknown Analyte Negati ve Not Available [facility] [address] [place] [address], [address], 12/19/2019 11:32:08 12/19/19 20 12/19/2019 urina lysis , dipst ick Unknown Analyte Negati ve Not Available [facility] [address] [place] [address], [address], 12/19/2019 11:32:08 12/19/19 20 12/19/2019 urina lysis , dipst ick Unknown Analyte Negati ve Not Available [facility] [address], [address], 12/19/2019 11:32:08 12/19/19 20 12/19/2019 urina lysis , dipst ick Unknown Analyte Negati ve Not Available [facility] [address] [place] [address], [address], 12/19/2019 11:32:08 12/19/19 20 12/19/2019 urina lysis , dipst ick Unknown Analyte 30 mg/dl (+) Not Available [facility] [address] [place] [address], [address], 12/19/2019 11:32:08 12/19/1912/19/2019 urina lysis , dipst ick Unknown Analyte Negati ve - Trace Not Available [facility] [address] [place] [address], [address], 12/19/2019 11:32:08 12/19/19 20 12/19/2019 urina lysis , dipst ick Unknown Analyte Normal Not Available [facility] [address] [place], [address], 12/19/2019 11:32:08 12/19/19 20 12/19/2019 urina lysis , dipst ick Unknown Analyte Normal Not Available [facility] [address] [place], [address], 12/19/2019 11:32:08 12/19/19 20 12/19/2019 urina lysis , dipst ick Unknown Analyte Negati ve Not Available [facility] [address] [place] [address], [address], 12/19/2019 11:32:08 12/19/19 20 12/19/2019 urina lysis , dipst ick Unknown Analyte Negati ve Not Available [facility] [address] [place] [address], [address], 12/19/2019 11:32:08 12/19/19 20 12/19/2019 urina lysis , dipst ick Unknown Analyte Normal Not Available [facility] [address] [place] [address], [address], 12/19/2019 11:32:08 12/19/19 20 12/19/2019 urina lysis , dipst ick Unknown Analyte Normal - 1mg/dl Not Available [facility] [address] [place] [address], [address], 12/19/2019 11:32:08 12/19/19 20 12/19/2019 urina lysis , dipst ick Unknown Analyte Negati ve Not Available [facility] [address] [place] [address], [address], 12/19/2019 11:32:08 12/19/19 20 12/19/2019 urina lysis , dipst ick Unknown Analyte Negati ve Not Available [facility] [address] [place] [address], [address], 12/19/2019 11:32:08 12/19/19 20 12/19/2019 urina lysis , dipst ick Unknown Analyte Negati ve Not Available [facility] [address], [address], 12/19/2019 11:32:08 12/19/19 20 12/19/2019 urina lysis , dipst ick Unknown Analyte Negati ve Not Available [facility] [address], [address], 12/19/2019 11:32:08 12/19/19 20 12/19/2019 urina lysis , dipst ick Unknown Analyte Clean Catch Not Available [address], [address], 12/19/2019 11:32:08 12/19/19 20 12/19/2019 urina lysis , dipst ick Unknown Analyte Automa heron Not Available [facility] [address], [address], 12/19/2019 11:32:08 12/07/19 20 12/06/2019 elect nadiaar diogr am No observ ation record ed. [email or web address] [facility] [address] [facility], [place], [address], 12/07/2019 15:41:15 12/19/19 20 12/19/2019 CT, abdom en, w/wo contr ast [facility] [address] [place] [address] [place] [address] Patien t Name: AVI Warefredrick t : [address] Jeaniefredrick t Orderi [facility] er: DEEPAK DENNIS EXAM DATE: 2019 EXAM: CT 3 PHASE RENAL CLINIC AL INFORM ATION: Follow -up cyst at the lower pole of left kidney . TECHNI QUE: Multip le axial CT images of the abdome n were obtain ed before and in the cortic omedul arcenio and nephro graphi c phases after inject ion of 100 mL Optira y 320 (1 x 100 mL bottle of [facility] [address]-1 1). None was wasted and discar ded. Bowel was marked with water. COMPAR MORELIA: 06/15/19 20 FINDIN GS: LOWER THORAX : Lung bases are clear. No obviou s cardia c abnorm ality. KIDNEY S: Both kidney s are normal in locati on, size, shape, outlin e and parenc hymal thickn ess. No stones or calcif icatio ns are seen within the kidney s and portio ns of the ureter s includ ed in the exam. No hydron ephros is or perine phric strand ing is presen t. Parenc hymal enhanc ement is normal bilate rally withou t delay. There is a 3 cm diamet er simple cyst in the right kidney which is stable . There is a 2 cm diamet er simple cyst in the lower portio n of the left kidney . It is stable . At the lower pole of the left kidney , the previo usly seen large cyst is noted. It measur es 6.5 cm in diamet er. It has attenu ation values of 33, 35 and 35 Hounsf ield units in the 3 phases . No focal enhanc ement is seen. Each kidney is suppli ed by a single patent renal artery . OTHER UPPER ABDOMI NAL ORGANS : Liver and spleen show multip le calcif ied granul omata. Gallbl adder, pancre as, and adrena ls are normal . BOWEL AND MESENT SIDDHARTHA: Stomac h, small bowel and colon are normal . No mesent kami lympha denopa thy or perito dave free fluid. RETROP ERITON EUM: Aorta shows athero sclero tic calcif icatio ns with normal aortic calibe r. IVC and branch es are patent and normal . No retrop eriton eal lympha denopa thy. BODY WALL AND MUSCUL OSKELE AUBREY STRUCT URES: Degene rative change s of the lumbar spine are noted. Surgic al hardwa re is seen in the lumbar spine. There is a small umbili harika hernia contai peter omenta l fat. IMPRES ADI: 1. Stable large high attenu ation cyst at the lower pole of left kidney . 2. Stable simple cysts in both kidney s. 3. No signif icant abnorm ality is identi fied. Interp reted By: Sujatha Thomas MD Electr onical ly Signed By: Sujatha Thomas MD on 12/19/19 11:18 AM [facility] [address] [place] [address], [address], 12/19/2019 12:15:44 03/18/2003/18/2020 LDCT, chest , for lung cance r bahman green [facility] [address] [facility] [place] [address] Patifredrick bland Name: AVI bland : 949 Ray bland Orderi ng Provid er: KATELYNN FLAVIO GARG ER EXAM DATE: 2019 EXAM: CT CHEST LUNG NODULE SCREEN ING CLINIC AL INFORM ATION: Lung cancer screen ing. Histor y of smokin g for 75 pack years. Ray bland has not smoked for 10 years. TECHNI QUE: Multip le axial CT images of the chest were obtain ed withou t inject ion of IV contra st using the low-do se lung cancer screen ing protoc ol. COMPAR MORELIA: CT renal mass protoc ol 12/19/19 NODULE SEARCH : No non-ca lcifie d lung nodule was identi fied in either lung. OTHER FINDIN GS: AIRWAY S AND LUNGS: Trache a, princi pal bronch i and major bronch ial branch es are patent and normal . Mild fibrot ic change s are seen in the right lung base. MEDIAS TINUM: Limite d evalua tion due to absenc e of IV contra st. Aorta, SVC, pulmon cheryl arteri es, pulmon cheryl veins and their major branch es and tribut moy are normal in calibe r. Girard ry artery calcif icatio ns are noted. . PLEURA AND CHEST WALL: No pleura l effusi on or mass. No chest wall abnorm ality. UPPER ABDOMI NAL ORGANS : Liver, gallbl adder, spleen , pancre as, adrena ls and upper visual ized portio ns of both kidney s are normal within the limits on interp retati on impose d by the absenc e of IV contra st. There is a 3.7 cm diamet er simple cyst in the right kidney which is stable . At the lower pole of left kidney , the previo usly seen high attenu ation cyst measur ing 6.5 cm is noted again and is stable . IMPRES ADI: 1. No suspic ious lung nodule s were identi fied during this screen ing CT chest. Contin ued screen ing with low-do se CT chest withou t contra st is recomm ended in one year's time. 2. Stable simple cyst right kidney and high attenu ation cyst in the left kidney . 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 Change : N/A. Lung-R ADS Catego ry: Lung-R ADS catego ry 1 Lung-R ADS Modifi er: None Recall Interv al: Contin ue screen ing in 1 Year. Recomm ended Exam at Recall : CT Chest Lung Nodule Screen ing Interp reted By: Sujatha Thomas MD Electr onical ly Signed By: Sujatha Thomas MD on 020 2:22 PM [email or web address] [facility] [address] [place] [address], [address], 03/19/2020 11:54:24 Result Notes Documentation Provider Name and Address Organization Details Recorded Time Ct, Abdomen, W/wo Contrast : [address] [address] Patient Name: AVI PHILLIPS Patient : 1950 Patient Ordering Provider: BRANDT DENNIS EXAM DATE: 12/19/2019 EXAM: CT 3 PHASE RENAL CLINICAL INFORMATION: Follow-up cyst at the lower pole of left kidney. TECHNIQUE: Multiple axial CT images of the abdomen were obtained before and in the corticomedullary and nephrographic phases after injection of 100 mL Optiray 320 (1 x 100 mL bottle of [facility] [id number]). None was wasted and discarded. Bowel was marked with water. COMPARISON: 06/15/2019 FINDINGS: LOWER THORAX: Lung bases are clear. No obvious cardiac abnormality. KIDNEYS: Both kidneys are normal in location, size, shape, outline and parenchymal thickness. No stones or calcifications are seen within the kidneys and portions of the ureters included in the exam. No hydronephrosis or perinephric stranding is present. Parenchymal enhancement is normal bilaterally without delay. There is a 3 cm diameter simple cyst in the right kidney which is stable. There is a 2 cm diameter simple cyst in the lower portion of the left kidney. It is stable. At the lower pole of the left kidney, the previously seen large cyst is noted. It measures 6.5 cm in diameter. It has attenuation values of 33, 35 and 35 Hounsfield units in the 3 phases. No focal enhancement is seen. Each kidney is supplied by a single patent renal artery. OTHER UPPER ABDOMINAL ORGANS: Liver and spleen show multiple calcified granulomata. Gallbladder, pancreas, and adrenals are normal. BOWEL AND MESENTERY: Stomach, small bowel and colon are normal. No mesenteric lymphadenopathy or peritoneal free fluid. RETROPERITONEUM: Aorta shows atherosclerotic calcifications with normal aortic caliber. IVC and branches are patent and normal. No retroperitoneal lymphadenopathy. BODY WALL AND MUSCULOSKELETAL STRUCTURES: Degenerative changes of the lumbar spine are noted. Surgical hardware is seen in the lumbar spine. There is a small umbilical hernia containing omental fat. IMPRESSION: 1. Stable large high attenuation cyst at the lower pole of left kidney. 2. Stable simple cysts in both kidneys. 3. No significant abnormality is identified. Interpreted By: Ham Thomas MD DT DENNIS MD [address] [place] [address], [phone] 12/19/2019 12:15:44 Ldct, Chest, For Lung Cancer Screening : [place] [address] Patient Name: AVI PHILLIPS Patient : 1950 Patient Ordering Provider: KATELYNN YUAN EXAM DATE: 03/18/2020 EXAM: CT CHEST LUNG NODULE SCREENING CLINICAL INFORMATION: Lung cancer screening. History of smoking for 75 pack years. Patient has not smoked for 10 years. TECHNIQUE: Multiple axial CT images of the chest were obtained without injection of IV contrast using the low-dose lung cancer screening protocol. COMPARISON: CT renal mass protocol 12/19/2019 NODULE SEARCH: No non-calcified lung nodule was identified in either lung. OTHER FINDINGS: AIRWAYS AND LUNGS: Trachea, principal bronchi and major bronchial branches are patent and normal. Mild fibrotic changes are seen in the right lung base. MEDIASTINUM: Limited evaluation due to absence of IV contrast. Aorta, SVC, pulmonary arteries, pulmonary veins and their major branches and tributaries are normal in caliber. Coronary artery calcifications are noted. . PLEURA AND CHEST WALL: No pleural effusion or mass. No chest wall abnormality. UPPER ABDOMINAL ORGANS: Liver, gallbladder, spleen, pancreas, adrenals and upper visualized portions of both kidneys are normal within the limits on interpretation imposed by the absence of IV contrast. There is a 3.7 cm diameter simple cyst in the right kidney which is stable. At the lower pole of left kidney, the previously seen high attenuation cyst measuring 6.5 cm is noted again and is stable. IMPRESSION: 1. No suspicious lung nodules were identified during this screening CT chest. Continued screening with low-dose CT chest without contrast is recommended in one year's time. 2. Stable simple cyst right kidney and high attenuation cyst in the left kidney. FOR INTERNAL STATISTICAL PURPOSE ONLY: Exam Type: Screening. Change: N/A. Lung-RADS Category: Lung-RADS category 1 Lung-RADS Modifier: None Recall Interval: Continue screening in 1 Year. Recommended Exam at Recall: CT Chest Lung Nodule Screening Interpreted By: Ham Thomas MD [facility] 03/19/2020 11:54:24 Problems Name Problem SNOMED Code Status Onset Date Resolution Date Notes Provider Name and Address Organization Details Recorded Time Chronic gout without tophus 428002531 Active 2014 From Autom[employer] Load;Pro vider: Carola Tim;St atus: Active Not Available [employer] 6 09:20:05 Lack of energy 714789542 Completed 201412/06/2019 From [employer] Load;Pro vider: Carola Tim;St atus: Active STEF ZAZUETA MD [address] [place] [address], [phone] , [facility] 0 14:02:38 Paroxysm al atrial fibrilla tion [id number] Active 2014 From [employer];Pro vider: Berta Carvalho; Status: Active Not Available [facility] 6 09:20:05 Hyperten sive disorder 46810564 Active 2014 From [employer] Load;Pro vider: Berta Carvalho; Status: Active Not Available [facility] 6 09:20:05 Dyspnea [id number] Completed 201412/06/2019 From [employer] Load;Pro vider: Berta Carvalho; Status: Active STEF ZAZUETA MD [address] [place] [address], [address] [place] [address] , [facility] 0 14:02:17 Generali zed edema [id number] Completed 201412/06/2019 From [employer] Load;Pro vider: Berta Carvalho; Status: Active STEF ZAZUETA MD [address] [place] [address], [address] [place] [address] , [facility] 0 14:02:22 Persiste nt atrial fibrilla tion [id number] Completed 201412/06/2019 From [employer] Load;Pro vider: Berta Carvalho; Status: Active STEF ZAZUETA MD [address] [place] [address], [address] [place] [address] , [facility] 0 14:02:29 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 [id number] 9103 Active 2014 From Automate d Load;Pro vider: Cuca Lan: Active Not Available [facility] 6 09:20:05 Heart failure 93902061 Completed 201512/06/2019 From Automate d Load;Pro vider: Berta Carvalho; Status: Active STEF ZAZUETA MD [address] [place] [address], [phone] , [facility] 0 14:02:33 Localize d edema 419007145 Active 2015 From Automate d Load;Pro vider: Berta Carvalho; Status: Active Not Available [facility] 6 09:20:05 Chronic obstruct lyssa pulmonar y disease 27554098 Active 2015 From Automate d Load;Pro vider: Jermaine Monreal;St atus: Active Not Available [facility] 6 09:20:05 Morbid obesity 100720105 Active 2015 From Automate d Load;Pro vider: Jermaine Monreal; atus: Active Not Available [facility] 6 09:20:05 Chronic kidney disease stage 3 504598916 Active 2019 STEF ZAZUETA MD [address] [place] [address], [address] , [facility] 0 13:55:55 Problem Notes None recorded. Procedures Surgical History Date Name Laterality Status Provider Name and Address Organization Details Recorded Time 12/18/19 20 Spirometry completed [facility] [place], [address], [facility] 12/18/2019 13:37:07 12/18/19 20 Pulse Oximetry completed Diandra Austin [facility] 12/18/2019 13:12:11 05/17/19 20 Spirometry completed [facility] [place], [address], [facility] 05/17/2019 13:53:07 05/17/19 20 Pulse Oximetry completed Diandra Austin [facility] 05/17/2019 13:31:20 05/11/19 20 EKG completed [place], [address], [facility] 05/11/2019 13:24:50 11/02/19 19 EKG completed [place], [address], [facility] 11/01/2018 13:40:47 05/17/19 19 Spirometry completed ERVIN [place], [address], [facility] 05/17/2018 14:04:40 05/17/19 19 Pulse Oximetry completed Diandra Austin [facility] 05/17/2018 12:56:33 05/03/19 19 EKG completed KWADWO [facility]ALEZ [facility] [place], [address], [facility] 05/03/2018 15:03:06 12/01/19 18 EKG completed KWADWO GONZALEZ PA-C [address] [place] [address], [address], [facility] 11/30/2017 11:46:25 11/09/19 18 Spirometry completed JERMAINE MONREAL MD [address] [place] [address], [address], [facility] 11/08/2017 12:09:05 05/23/19 18 EKG completed KWADWO GONZALEZ PA-C [address] [place] [address], [address], [facility] 05/23/2017 13:34:49 05/17/19 18 Biopsy Skin Lesion; Tangential completed Isaura Gabriel [facility] 05/17/2017 14:23:33 05/10/19 18 Spirometry completed JERMAINE MONREAL MD [address] [place] [address], [address], [facility] 05/10/2017 11:24:17 12/09/19 17 EKG completed IBAN MCCARTY MD [address] [place] [address], [address], [facility] 12/08/2016 11:02:44 09/30/19 17 Spirometry completed JERMAINE MONREAL MD [address] [place] [address], [address], [facility] 09/29/2016 14:41:23 09/02/19 17 Echocardiogram completed IBAN MCCARTY MD [address] [place] [address], [address], [facility] 09/01/2016 15:41:14 08/26/19 17 EKG completed IBAN MCCARTY MD [address] [place] [address], [address], [facility] 08/25/2016 10:12:35 06/30/19 17 Spirometry completed JERMAINE MONREAL MD [address] [place] [address], [phone] 06/29/2016 14:31:43 05/26/19 17 EKG completed IBAN MCCARTY MD [address] [place] [address], [address] 05/26/2016 13:37:47 03/31/20 16 Spirometry completed [facility]il[facility] 03/31/2016 14:24:38 Orthopedic Surgery completed [facility] 03/31/2016 14:19:44 Appendectomy completed Kamilah [facility] 03/31/2016 14:20:03 hernia repair completed Hina Washburn [facility] 12/04/2019 14:17:29 placement of stent completed Jim cee [facility] 09/16/2020 13:16:37 Imaging Results None recorded. Procedure Notes None recorded. Medical Equipment None Reported. Allergies Allergen ID Allergen Name Allergen Category Reaction Reaction Severity Criticality Documentation Date Start Date Code Code System Note Provider Name and Address Organization Details Recorded Time 798338 acetamino phen / hydrocodo ne medicatio n Not available Not available Not available 03/05/20162014 69964 2 RxNorm Comme nt: Creat ed By: Syeda Prajapati ed Date: 2014 11:36 :35 AM; Not Available [facility] 6 09:47:26 933234 Product containin g penicilli n (product) medicatio n Not available Not available Not available 03/05/20162014 95496 8001 SNOMED Comme nt: Creat ed By: Hayde shelby Date: 2014 9:10: 18 AM; Not Available [facility] 6 09:47:29 Medications Name Sig Start Date Stop Date Status Note LastModified by Organization Details LastModified Time torsemide 20 mg tablet Take 1 tablet every day by oral route. 08/07 completed Not Available Not Available Not Available diltiazem ER 180 mg capsule,2 4 hr,extend ed release Take 1 capsule every day by oral route. active Not Available Not Available No t Available Lasix 40 mg tablet Take 1 tablet twice a day by oral route. 05/11 completed Duration : 90 days;Ins truction s: TAKE ONE TABLET BY MOUTH DAILY;Me dication Descript ion: furosemi de; Route:or al; refills: 3; Quantity :90 tablet Not Available Not Available Not Available diltiazem ER 360 mg capsule,2 4 hr,extend ed release 08/07 completed Medicati on Descript ion: diltiaze m; Route:or al; refills: 0 Not Available Not Available Not Available hydralazi ne 25 mg tablet Three times a day active Frequenc y: tid;Medi cation Descript ion: hydralaz ine; Dosage:1 ; Route:or al; refills: 0 Not Available Not Available Not Available potassium chloride ER 10 mEq tablet,ex tended release TAKE TWO TABLETS BY MOUTH DAILY 08/07 completed Not Available Not Available Not Available spironola ctone 25 mg tablet Take 1 tablet every day by oral route. 08/07 completed Not Available Not Available Not Available bisoprolo l fumarate 10 mg tablet Daily 08/07 completed Frequenc y: daily;Me dication Descript ion: bisoprol ol; Route:or al; refills: 0 Not Available Not Available Not Available bisoprolo l fumarate 5 mg tablet Take 1 tablet every day by oral route. active Not Available Not Available No t Available tamsulosi n 0.4 mg capsule Take 2 capsules every day by oral route. active Not Available Not Available No t Available flecainid e 50 mg tablet TAKE 1 TABLET EVERY 12 HOURS 2019 active Not Available Not Available Not Avai lable gabapenti n 300 mg capsule Take 1 capsule twice a day by oral route. 03/28 completed Not Available Not Available Not Available allopurin ol 300 mg tablet TAKE 1 TABLET EVERY DAY 2020 active Not Available Not Available Not Avai lable gabapenti n 100 mg capsule Take 1 capsule 3 times a day by oral route. 11/14 completed Not Available Not Available Not Available ketoconaz ole 2 % topical cream Apply a thin layer to the areas of scaling/ peeling on the feet once daily at night. 11/30 completed Not Available Not Available Not Available lisinopri l 40 mg tablet Two times a day 08/07 completed Duration : 30 days;Guillermo quency: bid;Medi cation Descript ion: lisinopr il; Dosage:1 ; Route:or al; refills: 5; Quantity :30 tablet Not Available Not Available Not Available finasteri de 5 mg tablet Take 1 tablet every day by oral route. active Not Available Not Available No t Available loratadin e 10 mg tablet Take 1 tablet every day by oral route. active Not Available Not Available No t Available Cartia XT 180 mg capsule,e xtended release Take 1 capsule every day by oral route. 08/07 completed Not Available Not Available Not Available Tylenol Extra Strength 500 mg tablet Take 2 tablets every day by oral route. active Not Available Not Available No t Available Ventolin HFA 90 mcg/actua tion aerosol inhaler 2 puffs four times a day prn 08/25 completed Not Available Not Available Not Available Vitamin B-12 2500 mcg daily active Not Available Not Available No t Available Tylenol Extra Strength daily 05/15 completed Not Available Not Available Not Available Claritin Daily 09/16 completed Instruct ions: OTC;Freq uency: daily;Me dication Descript ion: loratadi ne; Dosage:1 ; Route:or al; refills: 0; Quantity :30 Not Available Not Available Not Available Stool Softener daily active Not Available Not Available Not Available Vitamin B12 daily 2500mcg 12/05 completed Not Available Not Available Not Available Multivita min 50 Plus 1 daily 11/14 completed Not Available Not Available Not Available Symbicort 160 mcg-4.5 mcg/actua tion HFA aerosol inhaler Inhale 2 puffs twice a day by inhalati on route. 09/27 completed Not Available Not Available Not Available Multaq 400 mg tablet Two times a day 05/26 completed Duration : 30 days;Ins truction s: TAKE ONE TABLET BY MOUTH TWICE A DAY;Freq uency: bid;Medi cation Descript ion: dronedar one; Dosage:1 ; Route:or al; refills: 1; Quantity :60 tablet Not Available Not Available Not Available Eliquis 5 mg tablet Two times a day 12/05 completed Duration : 30 days;Ins truction s: TAKE ONE TABLET BY MOUTH TWICE A DAY;Freq uency: bid;Medi cation Descript ion: apixaban ; Dosage:1 ; Route:or al; refills: 0; Quantity :60 tabletGa ve Samples Eliquis 5mg5 boxesLot :[id number] Exp: 09/29 Not Available Not Available Not Available Eliquis 2.5 mg tablet Take 1 tablet twice a day by oral route. active Not Available Not Available No t Available Eliquis 12/05 completed Gave samples of Eliquis 5mg, Lot: [id number], Exp: 07/2021- boxes Not Available Not Available Not Available Multi Vitamin daily active Not Available Not Available Not Available Breo Ellipta 100 mcg-25 mcg/dose powder for inhalatio n 05/26 completed Medicati on Descript ion: fluticas one-edelmira nterol; Route:in halation ; refills: 0 Not Available Not Available Not Available Anoro Ellipta 62.5 mcg-25 mcg/actua tion powder for inhalatio n Inhale 1 puff every day by inhalati on route. 05/09 completed Changed to Stiolto Respimat Not Available Not Available Not Available ProAir RespiClic k 90 mcg/actua tion breath activated 1-2 puffs Every four to six hours as needed 12/17 completed Frequenc y: q4-q6h;A lt Frequenc y: prn;Medi cation Descript ion: albutero l; Dosage:1 -2; Route:in halation ; refills: 11; Quantity :1 powder Not Available Not Available Not Available Stiolto Respimat 2.5 mcg-2.5 mcg/actua tion solution for inhalatio n Inhale 2 puffs every day by inhalati on route. 2020 active Not Available Not Available Not Avai lable Breo Ellipta 200 mcg-25 mcg/dose powder for inhalatio n INHALE 1 PUFF EVERY DAY 05/08 completed Started on Anoro Ellipta Not Available Not Available Not Available Entresto 97 mg-103 mg tablet Take 1 tablet twice a day by oral route. active Not Available Not Available No t Available Vitals Date Recorded Body height Respiratory rate Heart rate Oxygen saturation Oxygen saturation in Arterial blood by Pulse oximetry Systolic And Diastolic Provider Name and Address Organization Details Last Updated DateTime 1 180.34 cm 18 /min 94 /min 95 % 95 % 134/76 mm[Hg] Jim Denton [facility] 1 13:27:18 Date Recorded Body height Body mass index (BMI) Body weight Heart rate Systolic And Diastolic Provider Name and Address Organization Details Last Updated DateTime 12/06/2019 180.34 cm 38.5 kg/m2 617649.4 9 g 65 /min 138/90 mm[Hg] Hina Washburn [facility] 12/06/2019 13:45:23 Date Recorded Body height Body mass index (BMI) Body weight Heart rate Oxygen saturation Oxygen saturation in Arterial blood by Pulse oximetry Respiratory rate Systolic And Diastolic Provider Name and Address Organization Details Last Updated DateTime 0 180.34 cm 38.8 kg/m2 447034. 68 g 76 /min 95 % 95 % 20 /min 130/80 mm[Hg] Diandra Austin [facility] 0 13:01:34 Date Recorded Body height Body mass index (BMI) Body weight Provider Name and Address Organization Details Last Updated DateTime 12/19/2019 180.34 cm 38.8 kg/m2 429457.68 g Abril Mika [facility] 12/19/2019 11:31:54 Date Recorded Body height Body mass index (BMI) Body weight Heart rate Oxygen saturation Oxygen saturation in Arterial blood by Pulse oximetry Respiratory rate Systolic And Diastolic Provider Name and Address Organization Details Last Updated DateTime 0 180.34 cm 37.7 kg/m2 232482. 74 g 81 /min 97 % 97 % 18 /min 128/78 mm[Hg] Jim Denton [facility] 0 13:58:02 Social History Question Answer Notes LastModified by Organizat ion Details LastModified Time Tobacco Smoking Status Former Smoker QUIT Jim Denton [facility] 09/16/2020 13:17:23 How Much Tobacco Do You Chew? None Information not available 12/06/2019 When Did You Quit Smoking? 6-10yearssinc elastcigarett e Information not available 03/31/2016 Live Alone Or With Others? With Others Information not available 12/06/2019 Exposure To Smoke Yes Information not available 03/31/2016 Marital Status Informatio n not available 12/06/2019 What Was The Date Of Your Most Recent Tobacco Screening? 09/16/2020 [email or web address] Information not available 09/16/2020 How Many Children Do You Have? 1 Information not available 12/06/2019 How Much Tobacco Do You Smoke? 1.5 PPD Information not available 12/06/2019 How Many Years Have You Smoked Tobacco? 50 Information not available 12/06/2019 Sex: Unknown Functional Status Question Answer Note LastModified by Organizat ion Details LastModified Time What is your level of alcohol consumption? None Information not available 03/31/2016 Do you or have you ever used smokeless tobacco? Never used smokeless tobacco Information not available 12/06/2019 What is your occupation? disability Information not available 03/31/2016 Do you or have you ever used e-cigarettes or vape? Never used electronic cigarettes Information not available 12/06/2019 What is your exercise level? None Information not available 03/31/2016 Mental Status None recorded. Family History Relationship Description Onset Age of this Age Resolved Age Notes LastModified by Organization Details LastModified Time Mother Family history of malignant neoplasm Not available 2015 14:18:11 Mother Arthritis [email or web address] Not availa ble 10/04/2016 14:40:38 Unspecified Relation Hypertensive disorder [email or web address] Not available 2019 09:59:08 Medical History Condition Response Allergies/Hayfever Y Atrial Fibrillation Y Chronic Obstructive Pulmonary Disease Y Emphysema N COPD Y Pneumonia Y Ulcers Y Sinusitis Y Diabetes N Bleeding Disorder N Arthritis Y Acid Reflux (GERD) Y Asthma Y GERD/Reflux Y High Cholesterol Y Heart Disease Y Neuropathy Y Rheumatoid Arthritis N Hypertension Y Past Encounters Encounter ID Performer Location Encounter Start Date Encounter Closed Date Diagnosis/Indication Diagnosis SNOMED-CT Code Diagnosis ICD10 Code Diagnosis IMO Codes Diagnosis Note [id number] JERMAINE MONREAL MD PULMONARY [address], [address] [place] [address] 03/31/2016 13:33:03 04/14/2016 08:35:20 [id number] JERMAINE MONREAL MD PULMONARY [address], [address] [place] [address] 03/31/2016 13:33:03 04/14/2016 08:35:20 Chronic obstructive pulmonary disease 40586218 J44.9 [id number] IBAN MCCARTY MD CARDIOLOG Y [address] [place] [address] 05/26/2016 12:17:49 05/26/2016 13:42:46 Paroxysmal atrial fibrillation 983874760 I48.0 Stop Multaq due to costStart flecainide 50 mg twice dailyEKG in one week to evaluate QRS and QTC duration, and maintenanc e of sinus rhythm.Con tinue Eliquis 5 mg twice daily for stroke prophylaxi s. Bradycardia 45233716 R00 .1 Patient is asymptomat ic with a heart rate of 57 bpm sinus rhythm. If heart rate continues to drop or patient becomes symptomati c with dizziness or lightheade dness I would decrease diltiazem to 240 mg daily. Essential hypertension 78468343 I10 Well-contr olled today on current regimen no changes needed. Dyspnea on exertion 6084 5006 R06.09 Symptoms are likely multifacto rial due to weight, COPD, and likely underlying diastolic dysfunctio n.Encourag ed increased aerobic activityIf symptoms worsen we may repeat an echocardio gram. [id number] HARISH ARENAS MD CARDIOLOG Y [facility] [address] [place] [address] 06/04/2016 09:10:42 06/04/2016 11:35:32 [id number] JERMAINE MONREAL MD PULMONARY [address] [place] [address], [address] [address] 06/29/2016 13:34:27 06/30/2016 13:15:41 Chronic obstructive pulmonary disease 46527096 J44.9 [id number] JERMAINE MONREAL MD PULMONARY [address] [facility], [address] [address] 06/29/2016 13:34:27 06/30/2016 13:15:41 Chronic obstructive pulmonary disease 45034766 J44.9 The patient's lung function is been stable and his lungs are relatively clear on exam. I told him to stop the Symbicort but use pro-air as needed. He has an issue with affordabil ity of his medication s and this may be the least expensive option which would provide similar Treatment. [id number] IABN MCCARTY MD CARDIOLOG Y [facility] [address] [place] [address] 08/25/2016 09:34:25 08/25/2016 10:28:12 Paroxysmal atrial fibrillation 758416374 I48.0 Continue flecainide 50 mg twice dailyEKG today shows normal qtc and qrs durations. Continue Eliquis 5 mg twice daily for stroke prophylaxi s. If echocardio gram shows LVH greater than 1.5 cm, we will consider decreasing or stopping flecainide . Essential hypertension 60480572 I10 Well-contr olled today on current regimen no changes needed. Dyspnea on exertion 6084 5006 R06.09 Recheck echocardio gram as it has been almost 2 years.Incr ease Lasix to 40 mg twice dailyCheck BMP in 2-4 weeks.Symp toms are likely multifacto rial due to weight, COPD, and likely underlying diastolic dysfunctio n.Encourag ed increased aerobic activity Long-term drug therapy 046873697 Z79.899 EKG is benign, continue flecainide at current doseCheck echocardio gram to rule out structural heart disease that would limit use of flecainide Long-term current use of drug therapy 356528009 Z79.84 No bleeding complicati on of EliquisCon tinue current dose [id number] IBAN MCCARTY MD MOBILE ECHO [facility] [address] [place] [address] 09/01/2016 11:07:48 09/08/2016 09:15:35 Atrial fibrillation 29599502 I48.91 [id number] JERMAINE MONREAL MD PULMONARY [address] [facility] [facility], [address] [place] [address] 09/29/2016 13:47:01 09/29/2016 14:47:41 Chronic obstructive pulmonary disease 87512389 J44.9 Lung function is actually a bit better and I've made no change in his management . [id number] JERMAINE MONREAL MD PULMONARY [address] [facility] [facility], [address] [place] [address] 09/29/2016 13:49:02 03/26/2017 03:46:59 [id number] BERONICA LAN MD RHEUMATOL OGY [address] [place] [address] 10/04/2016 13:02:57 10/04/2016 15:01:43 Chronic gout without tophus 363934632 M1A.9XX0 He has chronic stable gout.Furth er, he has issues with chronic leg edema, and CHF followed by cardiology .no acute or active gout noted.must maintain the walk, and continue with Allopurino l 300 mg po qd.MUST AVOID all NSAIDS.OK To take Tylenol for the pains. [id number] IBAN MCCARTY MD CARDIOLOG Y [facility] [address] [place] [address] 12/08/2016 10:25:47 12/08/2016 11:55:12 Paroxysmal atrial fibrillation 252084980 I48.0 Continue flecainide 50 mg twice dailyEKG today shows normal qtc and qrs durations. Continue Eliquis 5 mg twice daily for stroke prophylaxi s. echocardio gram shows mild LVH, septal and posterior wall are 1.4 cm. Normal ejection fraction and grade 1 diastolic dysfunctio n. Essential hypertension 37441658 I10 Well-contr olled today on current regimen no changes needed. Dyspnea on exertion 6084 5006 R06.09 echocardio gram shows grade 1 diastolic dysfunctio n mild LVH.contin ue Lasix to 40 mg twice dailyCheck BMP in 2-4 weeks.Symp toms are likely multifacto rial due to weight, COPD, and likely underlying diastolic dysfunctio n.Encourag ed increased aerobic activity Long-term drug therapy 799967533 Z79.899 EKG is benign, continue flecainide at current doseechoca rdiogram shows mild LVH Long-term current use of drug therapy 302944719 Z79.84 No bleeding complicati on of EliquisCon tinue current dose [id number] BERONICA LAN MD RHEUMATOL OGY [address] [place] [address] 03/28/2017 12:47:59 03/28/2017 13:20:34 Chronic gout without tophus 963954462 M1A.9XX0 He has chronic gout.Clini brennon looks stable.Goo d ROM.No tophi. He needs to maintain the walk, and continue with Allopurino l 300 mg po qd. Neds to avoid all NSAIDS. OK To take Tylenol for the pains. He has other issues, with chronic leg edema, and CHF followed by cardiology . last uric acid is at 6.1 mg/dl. seeme in 12 months. [id number] JERMAINE MONREAL MD PULMONARY [address] [facility], [address] [place] [address] 05/10/2017 10:14:08 05/10/2017 12:31:00 Congestive heart failure 85717176 I50.9 no changes were made in the patient's medication s. Chronic ob structive pulmonary disease 60181128 J44.9 Morbid obesity 363616386 E66.01 he was encouraged to lose weight. [id number] MIGUE GARCIA DO DERMATOLO [facility]Y [facility] [address] [place] [address] 05/17/2017 13:28:33 05/18/2017 09:33:04 Neoplasm of uncertain behavior of skin 24448243 D48.5 L 4th toeshave biopsysent for pathr/o atypical melanocyti c hyperplasi a Wound care discussed with patient. Leave the bandage on for 24 hrs. Clean the area daily with warm soapy water, and apply polysporin ointment and a bandaid once daily until healed. Call the office if any increase in redness, drainage, or pain. Tinea pedis 0628997 B35. 3 discussed diagnosis on feetstart ketoconazo le as directed - nightly until resolved Onychomyco sis of toenails 346355506 B35.1 recommend using also ketoconazo le cream on these areas as well. [id number] KWADWO GONZALEZ PA-C CARDIOLOG Y [facility] [address] [place] [address] 05/23/2017 12:51:51 05/23/2017 13:49:12 Paroxysmal atrial fibrillation 743575887 I48.0 Hypertensive disorder 38 466621 I10 Chronic ob structive pulmonary disease 43445033 J44.9 Morbid obesity 998076473 E66.01 [id number] JERMAINE MONREAL MD PULMONARY [address] [facility], [address] [place] [address] 11/08/2017 10:42:19 11/08/2017 12:44:43 Chronic obstructive pulmonary disease 16196309 J44.9 I'm not sure why lung function is diminished but the patient not complainin g of any more dyspnea than usual. I gave him samples of Symbicort Atrial fibrillation 4943 6004 I48.91 See history of present illness Congestive heart failure 27033649 I50.9 no changes were made in the patient's medication s. Gout 52708847 M10.9 He has multiple joints affected and uses Zyloprim [id number] KWADWO GONZALEZ PA-C CARDIOLOG Y [facility] [address] [place] [address] 11/30/2017 10:46:48 11/30/2017 11:49:20 Paroxysmal atrial fibrillation 048274393 I48.0 Hypertensive disorder 38 833074 I10 Chronic ob structive pulmonary disease 68315568 J44.9 Morbid obesity 710348161 E66.01 [id number] BERONICA LAN MD RHEUMATOL OGY [address] [place] [address] 03/28/2018 12:49:40 03/31/2018 07:51:51 Chronic gout without tophus 428891286 M1A.9XX0 Avi has chronic gout which is clinically well controlled . No active effusion or synovitis noted. No tophi noted. He does have significan t bilateral oximetry edema which seems to be predominan tly chronic venous stasis and dependent edema. Although he has a history of congestive heart failure but he seems to be well compensate d. Next I suggested him to go back and restart the compressio n stockings every morning and off at bedtime. Further needs to discuss this further with his family physician and cardiologi st. In terms of gout, maintained allopurino l at 300 mg once a day. Must avoid all NSAIDS.OK To take Tylenol for the pains. last uric acid is at 6.1 mg/dl. see me in 6 months and obtain uric acid levels. [id number] KWADWO GONZALEZ PA-C CARDIOLOG Y [facility] [address] [place] [address] 05/03/2018 12:57:15 05/03/2018 15:51:06 Paroxysmal atrial fibrillation 582080531 I48.0 Hypertensive disorder 38 027900 I10 Chronic ob structive pulmonary disease 91409455 J44.9 Morbid obesity 426786812 E66.01 [id number] KATELYNN YUAN PA-C PULMONARY [address] [facility], [address] [place] [address] 05/17/2018 12:23:20 05/17/2018 15:43:15 Chronic obstructive pulmonary disease 90777233 J44.9 Slightly improved pulmonary function testing today when compared to last visit. Unfortunat sherine, the patient's medication compliance is limited because he reports he cannot afford any of his medication s. I have offered to try the patient on a different type of medication which he refuses. I have also offered to try and obtain manager of financial planning paperwork from the drug company and they refused this as well. I recommende d that the patient increase his daily activity. I have offered him a referral to pulmonary rehabilita tion which he refuses. I did discuss with the patient today the importance of proper vaccinatio ns. I have explained to the patient that because of his lung disease he is at a high risk for complicati ons if he were to contract influenza or pneumococc al pneumonia. He voiced understand ing reports that he does not want to take the influenza or pneumonia vaccinatio n. I did provide him with a sample of Symbicort 160 MCG 2 puffs twice daily. I will also send a prescripti on to his pharmacy. His is upset that he cannot be supplied with more samples at this time. She is also upset that we do not have samples of Pro Air. I have explained to his that we do not get samples of rescue inhalers. I will follow-up with him in 6 months. I've advised the patient contact the office today questions, concerns or change in his respirator y status. [id number] BERONICA LAN MD RHEUMATOL OGY [address] [place] [address] 09/27/2018 12:35:47 09/28/2018 16:31:06 Chronic gout without tophus [id number] M1A.9XX0 Avi has chronic gout which is clinically well controlled . No active effusion or synovitis noted. No tophi noted. chronic lower extremity edema seems to be dependent edema. Followed by his family physician and is on diuretics. Once again we discussed the importance of compressio n stockings. Leg elevation also reviewed. In terms of gout, maintained allopurino l at 300 mg once a day. Must avoid all NSAIDS.OK To take Tylenol for the pains. last uric acid was at 5.1 mg/dl, 04/21/2018. fu in 12 months. [id number] KWADWO GONZALEZ PA-C CARDIOLOG Y [facility] [address] [place] [address] 11/01/2018 13:04:44 11/01/2018 13:46:22 Paroxysmal atrial fibrillation [id number] I48.0 Hypertensive disorder 38 061471 I10 Chronic ob structive pulmonary disease 56082683 J44.9 Morbid obesity 609362686 E66.01 [id number] KATELYNN YUAN PA-C PULMONARY [address] [facility], [address] [place] [address] 11/14/2018 11:02:31 11/14/2018 11:50:49 Chronic obstructive pulmonary disease 24776905 J44.9 No exacerbati on today. Medication compliance has been severely limited by cost of medication s in the past. His reports that Breo is only $8.50 per month on his current insurance. He reports daily compliance with Breo one inhalation daily. Continue albuterol HFA as needed for shortness of breath or wheezing Follow-up in 6 months with spirometry . I've advised him to contact the office sooner with any questions, concerns or changes in respirator y status. Recommende d annual influenza vaccinatio n. He has refused vaccines and pulmonary rehab previously . [id number] KWADWO GONZALEZ PA-C CARDIOLOG Y [facility] [address] [place] [address] 05/11/2019 12:51:25 05/11/2019 13:30:35 Paroxysmal atrial fibrillation [id number] I48.0 Hypertensive disorder 38 027376 I10 Chronic ob structive pulmonary disease 49520765 J44.9 Morbid obesity 150949503 E66.01 [id number] KATELYNN YUAN PA-C PULMONARY [address] [facility], [address] [place] [address] 05/17/2019 12:48:54 05/17/2019 15:48:28 Chronic obstructive pulmonary disease 78158888 J44.9 No exacerbati on today. Continue Breo. Access to other inhalers is very limited by cost. Continue albuterol HFA as needed for shortness of breath or wheezing Follow-up in 6 months. I've advised him to contact the office sooner with any questions, concerns or changes in respirator y status. Recommende d annual influenza vaccinatio n. He declines both influenza and pneumonia vaccines. [id number] BRANDT DENNIS MD UROLOGY [facility] [address] [place] [address] 1 06/15/2019 09:12:55 06/18/2019 09:38:33 Renal mass 040076577 N28.89 Simple renal cyst 428020 09 N28.1 Benign pro static hyperplasia with outflow obstruction 221950150 N40.1 [id number] BRANDT DENNIS MD UROLOGY [facility] [address] [place] [address] 1 08/08/2019 09:12:47 08/09/2019 09:15:07 Simple renal cyst 44303275 N28.1 Benign pro static hyperplasia with outflow obstruction 220567347 N40.1 Complex renal cyst 80754 20743 0998076 N28.1 Avi hematuria 17219003 5 R31.0 Chronic ki dney disease stage 3 986738752 N18.3 [id number] BERONICA LAN MD RHEUMATOL OGY SB [address] [place] [address] 1 10/03/2019 08:12:18 10/03/2019 12:04:04 Chronic gout without tophus 312934664 M1A.9XX0 Avi has chronic gout,clini brennon well controlled . denies any acute complaints . Denies any interval flares or infections . He does have chronic kidney disease along with chronic leg edema. followed 's by PCP and nephrology . Reminded to avoid all NSAIDs. In terms of gout, maintain allopurino l at 300 mg once a day. last uric acid was at 5.1 mg/dl, 04/21/2018. fu in 12 months. refills given [id number] STEF ZAZUETA MD CARDIOLOG Y [address] [address] 12/06/2019 13:05:49 12/06/2019 14:12:29 Paroxysmal atrial fibrillation 733555909 I48.0 Patient will continue with chronic oral anticoagul ation. I have suggested discontinu ation of diltiazem to see if this results in improvemen t in his lower extremity edema with a concordant increase in his bisoprolol to maintain adequate rate control should recurrent A. fib ensue as well as to assist in blood pressure management . The patient's is reluctant to do so as there have been problems in the past with either low blood pressure and/or low heart rate with higher doses of combinatio n bisoprolol and diltiazem. I plan on seeing the patient back in 6 months time. [id number] KATELYNN YUAN PA-C PULMONARY [address] [facility], [address] [place] [address] 12/18/2019 12:19:34 12/18/2019 14:06:58 Chronic obstructive pulmonary disease 91820554 J44.9 No exacerbati on today. Decline in jose carlos. He does not want to change inhalers until he finishes his recent 3 month supply of Breo. Continue Breo. No rescue inhaler per cardiology recommenda tions. Follow-up in 3 months with inhaler change and CT screening. I've advised him to contact the office sooner with any questions, concerns or changes in respirator y status. Breathing- related sleep disorder 560642088 G47.30 Likely JUJU. Patient declines sleep study. Discussed risks of untreated sleep apnea including but not limited to A. fib, high blood pressure, stroke and heart attack. Will revisit at next appointmen t. Ex-smoker 6017968 Z87.89 1 75-pack-ye ar history of tobacco abuse. It has been 10 years since his last cigarette. He does qualify for CT chest for lung cancer screening at this time. Reviewed recommenda tions with the patient and he is agreeable but does not want to have this scan until his follow-up in 3 months. This will be scheduled and completed prior to his follow-up visit. [id number] BRANTD DENNIS MD UROLOGY [facility] [address] [place] [id number] 12/19/2019 11:11:25 12/19/2019 12:38:38 Complex renal cyst 8466158729 8278509 N28.1 Simple renal cyst 965556 09 N28.1 Benign pro static hyperplasia with outflow obstruction 689207260 N40.1 Chronic ki dney disease stage 3 878037064 N18.3 Screening for malignant neoplasm of prostate 661071089 Z12.5 [id number] KATELYNN YUAN PA-C PULMONARY [address] [place] [address], [address] [place] [address] 03/18/2020 13:33:35 03/18/2020 16:17:43 Chronic obstructive pulmonary disease 05781857 J44.9 No exacerbati on today. Agreeable to changing inhaler today. Start Breo and started on oral. I think this may help with his COPD management better. Provided with sample as well as demonstrat ion and education regarding proper use and technique. No rescue inhaler per cardiology recommenda tions. Follow-up in 6 months. Advised to contact the office sooner questions, concerns or changes in respirator y status. Patient declines pulse oximetry with exercise today. He also declines flu vaccine. Breathing- related sleep disorder 497578459 G47.30 Likely JUJU. Discussed with the patient today the importance of him having a sleep study. He will need to have an in lab sleep study considerastrid g his COPD and A. fib. Discussed with the patient that this could be a significan t contributi ng factor to his heart problems. He voices understand ing but politely defers a sleep study. Ex-smoker 2871914 Z87.89 1 75-pack-ye ar history of tobacco abuse. It has been 10 years since his last cigarette. CT chest for lung cancer screening was performed today. No suspicious nodules identified . Repeat screening in one year's time. [id number] KATELYNN YUAN PA-C PULMONARY [address] [facility] [place] [address] 09/16/2020 12:44:09 09/16/2020 16:26:47 Chronic obstructive pulmonary disease 87435180 J44.9 No exacerbati on today. Supposed to be on Anoro, Stiolto was preferred but still too expensive. Patient's is going to check with insurance company to see if there is a different preferred alternativ e. Given sample of Stiolto today. No rescue inhaler per cardiology recommenda tions. He is on supplement al O2 per cardiology . He does not know when he is supposed to be wearing O2 or the settings. Advised to check with cardiology for instructio ns. He does not wish to schedule f/u today. He is trying to transfer care to [facility]. Advised of how to obtain medical records. Follow-up in 6 months. Advised to contact the office sooner questions, concerns or changes in respirator y status. Patient declines pulse oximetry with exercise today. He also declines flu vaccine. Breathing- related sleep disorder 442041096 G47.30 Likely JUJU. Discussed with the patient today the importance of him having a sleep study. He will need to have an in lab sleep study considerin g his COPD and A. fib. He continues to decline sleep study. Ex-smoker [id number] Z87.89 1 75-pack-ye ar history of tobacco abuse. It has been 10 years since his last cigarette. CT chest for lung cancer screening was performed today. No suspicious nodules identified . Repeat screening in March 2020. Health Concerns Section Related Observation LastModified by Organization Detai ls LastModified Time None Recorded Concern Status LastModified by Organization Details LastModified Time None Recorded Advance Directives Directive None Recorded Payers Insurance Date Sequence Insurance Name Policy Number Policy Bloom Covered Member ID Bloom Member ID Guarantor Name 09/13/2020 1 [employer] (MEDICARE REPLACEMENT/A DVANTAGE - PPO) Avi Rios Alan [id number] Avi Blanca Alan Notes Date Note Type Note Provider Name and Address Organization Details Recorded Time 12/06/2019 text/html Mr. Phillips is seen in follow-up for: 1. PAF on chronic antiarrhythmic drug therapy and renally adjusted oral anticoagulation. [id number] score is 3 2. Hypertension with mild LVH 3. History of multiple small strokes 4. COPD 5. Obesity 6. Chronic intermittent lower extremity edema 7. Chronic kidney disease stage III The patient denies chest pain, dyspnea on exertion, palpitations, orthopnea, PND and syncope. He has chronic lower extremity edema being greater on the left. STEF ZAZUETA MD [address] [place] [address], [phone], [facility] 12/06/2019 14:04:08 12/18/2019 text/html Mr. Phillips is a 69-year-old -Malawian male who presents to the office today for COPD follow-up. He reports having some shortness of breath since his last visit as well as episodes of wakening with shortness of breath. He reports he awakens about 1 time per night. Since his last visit, he has had several medication changes because of heart issues. He is currently taking Breo daily. His rescue inhaler was discontinued because of problems with A. fib. It has been 10 years since he stopped smoking. KATELYNN YUAN PA-C [address] [place] [address], [phone], [facility] 12/18/2019 14:31:23 12/19/2019 text/html Diagnoses: BPH, renal cysts, chronic kidney disease, gout 69 year-old black male who comes here with his Clari. He has a history of BPH and has been on tamsulosin and finasteride. He was admitted overnight at [facility] for nausea, vomiting, fever, and a viral syndrome. He complained of back pain and a CT scan without contrast 06/12/2019 showed a 6 cm left lower pole exophytic renal mass and 3 cm right renal cyst. Labs included WBC 9.3, hemoglobin 12.9, hematocrit 40.9, creatinine 1.60, GFR 52, and urinalysis negative. He saw me with creatinine 1.45 and GFR 56 from 06/15/2019. A CT scan renal mass protocol 06/15/2019 at the [facility] showed a 6 cm left lower pole non-enhancing high attenuation cyst, 3.5 cm right, and 1.5 cm left renal simple cysts. His past medical history is significant for paroxysmal atrial fibrillation, COPD, morbid obesity, hypertension, and gout. He is on Eliquis. He takes allopurinol for gout. He denies kidney stones. He was transferred to [facility] 07/2019 with acute on chronic kidney disease which improved with Pa catheter drainage. He developed some gross hematuria after catheter placement which cleared readily. A CT scan without contrast showed bilateral renal cysts but no hydronephrosis. He is a former smoker. 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 HPI: The patient is here with his for follow-up of the renal cysts. He continues to take tamsulosin 0.8 mg and finasteride for BPH. His urinary symptoms are about the same. He has intermittent decreased flow, sense of incomplete emptying of the bladder, mild daytime frequency, nocturia 3 times, and mild urge incontinence. He wears a pad at night sometimes. He denies gross hematuria or flank pain. BRANDT DENNIS MD [address] [place] [address], [phone], [facility] 12/19/2019 12:20:51 03/18/2020 text/html Mr. hPillips is a 70-year-old -Mal[place]ian male who presents to the office today for follow-up. He is accompanied by his . He reports being hospitalized in January 2020 because of congestive heart failure. He was also told he had pneumonia. Today, he reports being back at baseline. He is taking Breo daily. He continues to have sleep disturbances. He reports dyspnea with exertion. He reports awakening sometimes feeling short of breath as well. He denies any coughing or wheezing. He had his CT chest for lung cancer screening performed earlier today. KATELYNN YUAN PA-C [address] [place] [address], [phone], [facility] 03/18/2020 16:14:40 09/16/2020 text/html Mr. Phillips is a 70-year-old male who presents to the office today for follow-up. He has known COPD. Suspected JUJU. Today, he is accompanied by his . She tells me that he has not been doing well at all. In July, he was hospitalized in [place], [place]. They thought it was an issue with his breathing but he needed a cardiac stent. He has had increased shortness of breath since starting Brillinta. They're going to switch him over to Plavix. She reports issues with getting his inhalers. She reports that they're very expensive. She has not checked with their insurance to see if a different inhaler would be better covered. He is currently taking Stiolto. He was discharged from the hospital with supplemental oxygen but he does not use this regularly. When asked, he tells me he was only told to use it as needed and was not given any specific instructions. He is doing cardiac rehabilitation 3 days per week and his oxygen has always been good. He also reports walking around the beekeeper farmer's office and was told his oxygen was good at that time. He is in the process of transferring all of his care over to [facility]. This will be easier for him. KATELYNN YUAN PA-C [address] [place], [phone], [facility] 09/16/2020 16:18:56
--- OUTSIDE RECORDS SUMMARY | 2025-02-06 12:33 | XMS_ITS | Encounter Summary ---
Author Organization [employer] ([place], [place], [place], [place]) Address [address] [place] [address] Care Team Providers Care Sewer System Supervisor Name Role Phone Unavailable Primary Care Provider Unavailabl e Encounter Details Date Type Department Care Team (Late st Contact Info) Description 07/27/2019 Transcribed Document [facility] Family Medicine [address] [place] [address] ProviderToibas MD [address] [place] [address] Social History Tobacco Use Types [...] Conversion Note - Historical ProviderMD - 07/27/2019 11:29 AM CDT DATE OF CONSULTATION: 07/27/2019 NEPHROLOGY CONSULT NOTE CONSULTING PHYSICIAN: Iesha Suh DO REASON FOR CONSULT: Acute kidney injury, hyperkalemia. HISTORY OF PRESENTING ILLNESS: This is a 69-year-old male, with a past medical history significant for hypertension, hyperlipidemia, chronic atrial fibrillation on anticoagulation, gout, and chronic kidney disease stage 3, who presented to [facility] with weakness and fatigue. The patient is a very poor historian. He does not remember his kidney doctor's name. He does remember that he has some left renal mass for which supposedly he was supposed to get some kind of a surgery, but he does not remember the name of the surgeon and when he is supposed to get the surgery. The patient denies any history of NSAID use, any family history of kidney disease, or any history of autoimmune disease in the family members. He denies history of kidney stones. At the presentation, his bicarb was 15, creatinine of 5.3, potassium of 7.4. The patient was given some Kayexalate and some D50 water with IV insulin and calcium gluconate. His potassium improved with the above measure. A repeat dose of Kayexalate was given in our facility as well and today his potassium is 5.4, and the creatinine has improved so far to 3.6 today. The patient was noted to have some bloody urine in his Pa tube. A CT scan of the abdomen and pelvis was ordered, which showed exophytic mass in the lower pole of the left kidney, but there was no hydronephrosis and there were no renal stones. The patient denies any chest pain, shortness of breath, headache, nausea, vomiting, diarrhea, constipation, fever, chills, rigors, or joint pain. REVIEW OF SYSTEMS: Comprehensive review of 12 systems was done, found to be negative except as noted in the HPI. PAST MEDICAL HISTORY: Allergic rhinitis, atrial fibrillation, arthritis, cataract, gout, hyperlipidemia, hypertension. SURGICAL HISTORY: Hernia repair and back surgery. HOME MEDICATIONS: 1. Allopurinol. 2. Bisoprolol. 3. Claritin. 4. Diltiazem. 5. Eliquis. 6. Furosemide. 7. Hydralazine. 8. Lisinopril. 9. Potassium chloride extended release. 10. He was also on spironolactone. ALLERGIES: The patient is allergic to Lortab and penicillin. SOCIAL HISTORY: No smoking status, quit 8 years ago. No alcohol intake. No illicit drug use. FAMILY HISTORY: Positive for heart disease, but no family history of kidney disease. PHYSICAL EXAMINATION: VITAL SIGNS: Blood pressure 105/55, heart rate of 87, respirations of 17, saturating 99% on room air. GENERAL: The patient is alert, oriented x3, in no acute distress. HEAD: Normocephalic, atraumatic. Extraocular movements intact. Pupils equal and reactive to light and accommodating. NECK: Supple. No JVD. No carotid bruit. LUNGS: Clear to auscultation bilaterally. Nonlabored respiration. HEART: Irregularly irregular. No murmur, gallop, or rub. ABDOMEN: Soft, nontender, nondistended. Bowel sounds present. EXTREMITIES: Normal range of motion. No edema. BILINGUAL TRAINER: No focal deficit noted grossly. Cranial nerves II through XII intact. PSYCH: Appropriate mood and affect and cooperative. SKIN: Warm, dry, pink, and intact. DIAGNOSTIC STUDIES: LABORATORY RESULTS: Sodium 145, potassium 5.4, chloride 120, bicarb of 18, glucose of 95, BUN of 85, creatinine of 3.60, calcium of 9.7, albumin of 3.2, globulin of 4.1. Liver enzymes within normal limits. WBC of 11.0, hemoglobin of 10.7, hematocrit 32.1, and platelet count of 176. ASSESSMENT: 1. Acute kidney injury on chronic kidney disease stage 3, nonoliguric, prerenal azotemia likely improved with IV hydration. 2. Hyperkalemia, medication and acute kidney injury. 3. Mild metabolic acidosis. 4. Anemia. 5. Chronic kidney disease stage 3, baseline 1.6 to 1.9 range. 6. Chronic atrial fibrillation. 7. History of left renal mass. 8. Gross hematuria. PLAN: 1. Continue with IV hydration. Monitor input and output. 2. Avoid nephrotoxic agent. 3. Renal diet. 4. Adjust medications per renal function. 5. We will get urine lytes. 6. We will get CK total level. 7. Recommend urology consult for further evaluation of the left renal mass. Thank you very much for the consult. We will follow along with other physicians. /[id number] Cookie Nava MD MA/DELIO / GIRMA / MODL /[id number] Electronically signed by Romulo [facility] Conversion Sandwich Wrapper Cerner at 07/26/2022 6:20 PM CDT documented in this encounter Plan of Treatment Not on file documented as of this encounter Visit Diagnoses Not on filedocumented in this encounter
--- OUTSIDE RECORDS SUMMARY | 2025-02-06 12:33 | XMS_ITS | Encounter Summary ---
Author Organization [employer] ([place], [place], [place], [place]) Address [address] [place] [address] [address] Team Prov[address] Care [address] Marker Installer Name Role Phone Unavailable Primary Care Provider Unavailabl e Encounter Details Date Type Department Care Team (Late st Contact Info) Description 07/31/2019 Transcribed Document [facility] Family Medicine [address] [place] [address] ProviderTobias MD [address] [place], [place] [id number] Social History Tobacco Use Types Packs/Day Years Used Date Smoking Tobacco: Never Assessed Sex and Gender Information Value Date Recorded Sex Assigned at Male 10/08/2021 11:56 AM CDT Legal Sex Male 6:58 PM CDT Gender Identity Male 10/08/2021 11:56 AM CDT Sexual Orientation Not on file documented as of this encounter Miscellaneous Notes * Cerner Conversion Note - Historical ProviderMD - 07/31/2019 9:28 PM CDT Spiritual Care Short Form Entered On: 07/31/2019 21:29 EDT Performed On: 07/31/2019 21:28 EDT by ISIDRO MACKENZIE Chaplain General Information, Spiritual Care Spiritual Care Referred by : [place] initiated Reason for Visit : Initial Ministry Provided to : Patient Intervention/Comment/Summary Points : Robust conversation enjoyed while rounding this unit. Avi shares he tries to keep a positive outlook on things and appreciates talking with someone. ISIDRO MACKENZIE Chaplain - 07/31/2019 21:28 EDT documented in this encounter Plan of Treatment Not on file documented as of this encounter Visit Diagnoses Not on filedocumented in this encounter
--- OUTSIDE RECORDS SUMMARY | 2025-02-06 12:33 | XMS_ITS | Clinical Summary ---
Author Organization Healthcare Address [address] [place], [place] [id number] Care Team Providers Care Manager Of Operations Name Role Phone Henrry Vegas MD Primary Care Provider + [phone] Zackary Smith MD Unavailable [phone] Hector Henry Unavailable Social History Tobacco Use [...] Screening 1950 [facility]-Medicare Annual Wellness (AWV) 1950 [facility]-Infant/Child/Adol SDOH Screenings 1950 [facility]- SDOH Screenings 1967 [facility]-Adult SDOH Screenings 1967 [facility]-RSV Vaccine: 60+ Years o r (1 - 1-dose 75+ series) 01/04/2024 [id number] Vaccine ( - 2024- season) 2024 03/23/2022, 02/26/2021, 06/19/2020 [facility]-Influenza Vaccine [...] complete this topic Insurance MEDICARE Care Teams Manager Of Operations Relationship Specialty Start Date End Date Henrry Vegas MD [address] [place] [address] PCP - General 08/22/20 Zackary Smith MD [address] [place] [id number] Parcel Post Clerk 12/27/23 Hector Henry PA [address] [address] Parcel Post Clerk 12/27/23
--- OUTSIDE RECORDS SUMMARY | 2025-02-06 12:33 | XMS_ITS | Encounter Summary ---
Author Organization [employer] ([place], [place], [place], [place]) Address [address] [place] [address] Care Team Providers Care Pediatric Assistant Name Role Phone Unavailable Primary Care Provider Unavailabl e Encounter Details Date Type Department Care Team (Late st Contact Info) Description 08/01/2019 Transcribed Document [facility] [place] [address] [place] [address] ProviderTobias MD [address] [place] [address] Social History Tobacco Use Types [...] Conversion Note - Historical ProviderMD - 08/01/2019 5:00 AM CDT Chart Check - Review Order Profile Entered On: 08/01/2019 4:08 EDT Performed On: 08/01/2019 5:00 EDT by Winnie Jaimes RN Chart Check Powerplans Initiated/Discontinued as Appropriate : Yes All Active Orders Reviewed : Yes Winnie Jaimes, RN - 08/01/2019 4:08 EDT documented in this encounter Plan of Treatment Not on file documented as of this encounter Visit Diagnoses Not on filedocumented in this encounter
--- OUTSIDE RECORDS SUMMARY | 2025-02-06 12:33 | XMS_ITS | Encounter Summary ---
Author Organization [employer] ([place]) Address [address] [place] [address] Care Team Providers Care Graduation Coach Name Role Phone Unavailable Primary Care Provider Unavailabl e Encounter Details Date Type Department Care Team (Late st Contact Info) Description 07/30/[address] [facility] [place] Medicine [address] [place] [address] ProviderTobias MD [address] [place] [address] Social History Tobacco Use Types [...] Conversion Note - Historical ProviderMD - 07/30/2019 3:00 AM CDT Nutrition Assessment Entered On: 07/30/2019 11:50 EDT Performed On: 07/30/2019 11:50 EDT by [address]IO [address]ARENA RD, DOMINIC Nutrition Assessment Nutrition Assessment Reason : Follow Up MACARIO CAMARENA RD, DOMINIC - 07/30/2019 11:50 EDT Nutrition Recommendations Dietitian Recommendations : 07/29: Rescreened pt, on 60 gm CHO diet, eating 75% aag x 6 meals. No specific nutrition concerns at this time. RD will rescreen in 7-10 days 07/26: Rec'd consult for MST >2 (unsure weight loss). Unable to speak with pt during visit and no recent weight history in chart to confirm weight changes. Currently NPO for workup. Admitted with hyperkalemia- no need for TRUCK DRIVER RUBBISH COLLECTOR per Nephrology. Pt with SKI on CKD3. LBM 07/26. Recommend advancing to Pre-Dialysis diet (+Low Potassium restriction). No specific nutrition dx at this time, RD will rescreen in 3-4 days to check on po intake. MACARIO CAMARENA, MASTER, LD - 07/30/2019 12:03 EDT documented in this encounter Plan of Treatment Not on file documented as of this encounter Visit Diagnoses Not on filedocumented in this encounter
--- OUTSIDE RECORDS SUMMARY | 2025-02-06 12:33 | XMS_ITS | Encounter Summary ---
Author Organization [employer] ([place], [place], [place], [place]) Address [address] [place] [address] Care Team Providers Care Deposit Clerk Name Role Phone Unavailable Primary Care Provider Unavailabl e Encounter Details Date Type Department Care Team (Late st Contact Info) Description 08/01/2019 Transcribed Document [facility] [place] Family Medicine [address] [place] [address] ProviderTobias MD [address] [place] [address] Social History Tobacco Use [...] Conversion Note - Tobias Gamino MD - 08/01/2019 1:49 PM CDT Patient Education Materials Follows: Heart-Healthy Eating Plan Heart-healthy meal planning includes: ??? Eating less unhealthy fats. ??? Eating more healthy fats. ??? Making other changes in your diet. Talk with your doctor or a diet specialist (dietitian) to create an eating plan that is right for you. What is my plan? Your doctor may recommend an eating plan that includes: ??? Total fat: % or less of total calories a day. ??? Saturated fat: % or less of total calories a day. ??? Cholesterol: less than mg a day. What are tips for following this plan? Cooking Avoid frying your food. Try to bake, boil, grill, or broil it instead. You can also reduce fat by: ??? Removing the skin from poultry. ??? Removing all visible fats from meats. ??? Steaming vegetables in water or broth. Meal planning ??? At meals, divide your plate into four equal parts: ? Fill one-half of your plate with vegetables and green salads. ? Fill one-fourth of your plate with whole grains. ? Fill one-fourth of your plate with lean protein foods. ??? Eat 4?5 servings of vegetables per day. A serving of vegetables is: ? 1 cup of raw or cooked vegetables. ? 2 cups of raw leafy greens. ??? Eat 4?5 servings of fruit per day. A serving of fruit is: ? 1 medium whole fruit. ? ? cup of dried fruit. ? ? cup of fresh, frozen, or canned fruit. ? ? cup of 100% fruit juice. ??? Eat more foods that have soluble fiber. These are apples, broccoli, carrots, beans, peas, and barley. Try to get 20?30 g of fiber per day. ??? Eat 4?5 servings of nuts, legumes, and seeds per week: ? 1 serving of dried beans or legumes equals ? cup after being cooked. ? 1 serving of nuts is ? cup. ? 1 serving of seeds equals 1 tablespoon. General information ??? Eat more home-cooked food. Eat less restaurant, buffet, and fast food. ??? Limit or avoid alcohol. ??? Limit foods that are high in starch and sugar. ??? Avoid fried foods. ??? Lose weight if you are overweight. ??? Keep track of how much salt (sodium) you eat. This is important if you have high blood pressure. Ask your doctor to tell you more about this. ??? Try to add vegetarian meals each week. Fats ??? Choose healthy fats. These include olive oil and canola oil, flaxseeds, walnuts, almonds, and seeds. ??? Eat more omega-3 fats. These include salmon, mackerel, sardines, tuna, flaxseed oil, and ground flaxseeds. Try to eat fish at least 2 times each week. ??? Check food labels. Avoid foods with trans fats or high amounts of saturated fat. ??? Limit saturated fats. ? These are often found in animal products, such as meats, butter, and cream. ? These are also found in plant foods, such as palm oil, palm kernel oil, and coconut oil. ??? Avoid foods with partially hydrogenated oils in them. These have trans fats. Examples are stick margarine, some tub margarines, cookies, crackers, and other baked goods. What foods can I eat? Fruits All fresh, canned (in natural juice), or frozen fruits. Vegetables Fresh or frozen vegetables (raw, steamed, roasted, or grilled). Green salads. Grains Most grains. Choose whole wheat and whole grains most of the time. Rice and pasta, including brown rice and pastas made with whole wheat. Meats and other proteins Lean, well-trimmed beef, veal, pork, and lobo. Chicken and turkey without skin. All fish and shellfish. Wild duck, rabbit, pheasant, and venison. Egg whites or low-cholesterol egg substitutes. Dried beans, peas, lentils, and tofu. Seeds and most nuts. Dairy Low-fat or nonfat cheeses, including ricotta and mozzarella. Skim or 1% milk that is liquid, powdered, or evaporated. Buttermilk that is made with low-fat milk. Nonfat or low-fat yogurt. Fats and oils Non-hydrogenated (trans-free) margarines. Vegetable oils, including soybean, sesame, sunflower, olive, peanut, safflower, corn, canola, and cottonseed. Salad dressings or mayonnaise made with a vegetable oil. Beverages Mineral water. Coffee and tea. Diet carbonated beverages. Sweets and desserts Sherbet, gelatin, and fruit ice. Small amounts of dark chocolate. Limit all sweets and desserts. Seasonings and condiments All seasonings and condiments. The items listed above may not be a complete list of foods and drinks you can eat. Contact a dietitian for more options. What foods should I avoid? Fruits Canned fruit in heavy syrup. Fruit in cream or butter sauce. Fried fruit. Limit coconut. Vegetables Vegetables cooked in cheese, cream, or butter sauce. Fried vegetables. Grains Breads that are made with saturated or trans fats, oils, or whole milk. Croissants. Sweet rolls. Donuts. High-fat crackers, such as cheese crackers. Meats and other proteins Fatty meats, such as hot dogs, ribs, sausage, branch, rib-eye roast or steak. High-fat deli meats, such as salami and bologna. Caviar. Domestic duck and goose. Organ meats, such as liver. Dairy Cream, sour cream, cream cheese, and creamed cottage cheese. Whole-milk cheeses. Whole or 2% milk that is liquid, evaporated, or condensed. Whole buttermilk. Cream sauce or high-fat cheese sauce. Yogurt that is made from whole milk. Fats and oils Meat fat, or shortening. [place] butter, hydrogenated oils, palm oil, coconut oil, palm kernel oil. Solid fats and shortenings, including branch fat, salt pork, lard, and butter. Nondairy cream substitutes. Salad dressings with cheese or sour cream. Beverages Regular sodas and juice drinks with added sugar. Sweets and desserts Frosting. Pudding. Cookies. Cakes. Pies. Milk chocolate or white chocolate. Buttered syrups. Full-fat ice cream or ice cream drinks. The items listed above may not be a complete list of foods and drinks to avoid. Contact a dietitian for more information. Summary ??? Heart-healthy meal planning includes eating less unhealthy fats, eating more healthy fats, and making other changes in your diet. ??? Eat a balanced diet. This includes fruits and vegetables, low-fat or nonfat dairy, lean protein, nuts and legumes, whole grains, and heart-healthy oils and fats. This information is not intended to replace advice given to you by your health care provider. Make sure you discuss any questions you have with your health care provider. Document Released: 09/26/2012 Document Revised: 05/05/2018 Document Reviewed: 05/05/2018 [employer] Interactive Patient Education ? 2019 [employer] Bradycardia, Adult Bradycardia is a ihlaaw-lamk-nozmlk heartbeat. A normal resting heart rate for an adult ranges from 60 to 100 beats per minute. With bradycardia, the resting heart rate is less than 60 beats per minute. Bradycardia can prevent enough oxygen from reaching certain areas of your body when you are active. It can be serious if it keeps enough oxygen from reaching your brain and other parts of your body. Bradycardia is not a problem for everyone. For some healthy adults, a slow resting heart rate is normal. What are the causes? This condition may be caused by: ??? A problem with the heart, including: ? A problem with the heart's electrical system, such as a heart block. With a heart block, electrical signals between the chambers of the heart are partially or completely blocked, so they are not able to work as they should. ? A problem with the heart's natural pacemaker (sinus node). ? Heart disease. ? A heart attack. ? Heart damage. ? Lyme disease. ? A heart infection. ? A heart condition that is present at (congenital heart defect). ??? Certain medicines that treat heart conditions. ??? Certain conditions, such as hypothyroidism and obstructive sleep apnea. ??? Problems with the balance of chemicals and other substances, like potassium, in the blood. ??? Trauma. ??? Radiation therapy. What increases the risk? You are more likely to develop this condition if you: ??? Are age 65 or older. ??? Have high blood pressure (hypertension), high cholesterol (hyperlipidemia), or diabetes. ??? Drink heavily, use tobacco or nicotine products, or use drugs. What are the signs or symptoms? Symptoms of this condition include: ??? Light-headedness. ??? Feeling faint or fainting. ??? Fatigue and weakness. ??? Trouble with activity or exercise. ??? Shortness of breath. ??? Chest pain (angina). ??? Drowsiness. ??? Confusion. ??? Dizziness. How is this diagnosed? This condition may be diagnosed based on: ??? Your symptoms. ??? Your medical history. ??? A physical exam. During the exam, your health care provider will listen to your heartbeat and check your pulse. To confirm the diagnosis, your health care provider may order tests, such as: ??? Blood tests. ??? An electrocardiogram (ECG). This test records the heart's electrical activity. The test can show how fast your heart is beating and whether the heartbeat is steady. ??? A test in which you wear a portable device (event recorder or Holter monitor) to record your heart's electrical activity while you go about your day. ??? An?exercise test. How is this treated? Treatment for this condition depends on the cause of the condition and how severe your symptoms are. Treatment may involve: ??? Treatment of the underlying condition. ??? Changing your medicines or how much medicine you take. ??? Having a small, battery-operated device called a pacemaker implanted under the skin. When bradycardia occurs, this device can be used to increase your heart rate and help your heart beat in a regular rhythm. Follow these instructions at home: Lifestyle ??? Manage any health conditions that contribute to bradycardia as told by your health care provider. ??? Follow a heart-healthy diet. A nutritional yeast supervisor (dietitian) can help educate you about healthy food options and changes. ??? Follow an exercise program that is approved by your health care provider. ??? Maintain a healthy weight. ??? Try to reduce or manage your stress, such as with yoga or meditation. If you need help reducing stress, ask your health care provider. ??? Do not use any products that contain nicotine or tobacco, such as cigarettes, e-cigarettes, and chewing tobacco. If you need help quitting, ask your health care provider. ??? Do not use illegal drugs. ??? Limit alcohol intake to no more than 1 drink a day for non women and 2 drinks a day for men. Be aware of how much alcohol is in your drink. In the [place] one drink equals one 12 oz bottle of beer (355 mL), one 5 oz glass of wine (148 mL), or one 1? oz glass of hard liquor (44 mL). General instructions ??? Take rvfu-jpy-upixise and prescription medicines only as told by your health care provider. ??? Keep all follow-up visits as told by your health care provider. This is important. How is this prevented? In some cases, bradycardia may be prevented by: ??? Treating underlying medical problems. ??? Stopping behaviors or medicines that can trigger the condition. Contact a health care provider if you: ??? Feel light-headed or dizzy. ??? Almost faint. ??? Feel weak or are easily fatigued during physical activity. ??? Experience confusion or have memory problems. Get help right away if: ??? You faint. ??? You have: ? An irregular heartbeat (palpitations). ? Chest pain. ? Trouble breathing. Summary ??? Bradycardia is a nlmkuv-hbrm-uaoezw heartbeat. With bradycardia, the resting heart rate is less than 60 beats per minute. ??? Treatment for this condition depends on the cause. ??? Manage any health conditions that contribute to bradycardia as told by your health care provider. ??? Do not use any products that contain nicotine or tobacco, such as cigarettes, e-cigarettes, and chewing tobacco, and limit alcohol intake. ??? Keep all follow-up visits as told by your health care provider. This is important. This information is not intended to replace advice given to you by your health care provider. Make sure you discuss any questions you have with your health care provider. Document Released: 12/18/2002 Document Revised: 09/06/2018 Document Reviewed: 09/06/2018 [employer] Interactive Patient Education ? 2019 [employer] Electronically signed by Millie Sebastian Conversion Automation Machine Builder Cerner at 07/26/2022 6:32 PM CDT documented in this encounter Plan of Treatment Not on file documented as of this encounter Visit Diagnoses Not on filedocumented in this encounter
--- OUTSIDE RECORDS SUMMARY | 2025-02-06 12:34 | XMS_ITS | Encounter Summary ---
Author Organization [employer] ([place], [place], [place], [place]) Address [address] [place] [address] Care Team Providers Care Coding Machine Operator Name Role Phone Unavailable Primary Care Provider Unavailabl e Encounter Details Date Type Department Care Team (Late st Contact Info) Description 08/01/2019 Transcribed Document [facility] [place] [facility] [place] [address] ProviderTobias MD [address] [place] [address] Social History Tobacco Use Types [...] Conversion Note - Historical ProviderMD - 08/01/2019 3:35 PM CDT Discharge Summary, PT Entered On: 08/01/2019 15:36 EDT Performed On: 08/01/2019 15:35 EDT by TEE LENNON PTA Discharge Summary Discharge Summary Provider Notified : Nursing, Physical Therapy Reason for Discharge : Discharged from hospital Discharged to, Therapy : Home, with home health TEE LENNON PTA - 08/01/2019 15:35 EDT Discharge Summary Comment, PT : pt discharged from hospital to home with home health, per last PTx - pt min A for bed mobility, pt ambulated 105' x 2 with RWx and min A Approved by PT JOHN ZACARIAS, PT - 08/02/2019 7:05 EDT Short Term Goals Mobility/Bed Mobility STG PT Grid Goal #1 Goal #2 Activity : Supine to sit Sit to stand Assist : Supervision or set-up Assist, minimal Equipment : Rail, bed Walker, front wheel Date to Meet : 08/04/2019 EDT 08/04/2019 EDT Goal Status : Not met Goal met Date Met : 07/30/2019 EDT TEE LENNON PTA - 08/01/2019 15:35 EDT TEE LENNON PTA - 08/01/2019 15:35 EDT Ambulation STG Grid Goal #1 Device : Walker, front wheel Distance : 30' Assist : Assist, minimal Date to Meet : 08/04/2019 EDT Goal Status : Goal met Date Met : 07/31/2019 EDT TEE LENNON PTA - 08/01/2019 15:35 EDT K[facility] Goals Mobility/Bed Mobility LTG PT Grid Goal #1 Activity : Sit to stand Assist : Supervision or set-up Equipment : Walker, front wheel Date to Meet : 08/11/2019 EDT Goal Status : Not met TEE LENNON PTA - 08/01/2019 15:35 EDT Ambulation LTG Grid Goal #1 Device : Walker, front wheel Distance : 100' Assist : Supervision or set-up Date to Meet : 08/11/2019 EDT Goal Status : Not met TEE LENNON PTA - 08/01/2019 15:35 EDT documented in this encounter Plan of Treatment Not on file documented as of this encounter Visit Diagnoses Not on filedocumented in this encounter
--- OUTSIDE RECORDS SUMMARY | 2025-02-06 12:34 | XMS_ITS | Encounter Summary ---
Author Organization [employer] ([place], [place], [place], [place]) Address [address] [place] [address] Care Team Providers Care Quality Assurance Project Manager Name Role Phone Unavailable Primary Care Provider Unavailabl e Encounter Details Date Type Department Care Team (Late st Contact Info) Description 08/01/2019 Transcribed Document [facility] [facility] [address] [place] [address] ProviderTobias MD [address] [place] [address] Social History Tobacco Use [...] Conversion Note - Tobias ProviderMD - 08/01/2019 1:[address] [facility] [place], [place] [id number] AVI SKY :1950 Visit Time:07/27/2019 Your Visit Summary Your Care Team Admitting Physician - ERASMO DOMINGO DO-INT Attending Physician - ERASMO DOMINGO DO-INT Your Diagnosis Bradycardia, Bradycardia Hyperkalemia, Hyperkalemia These Are Your Goals remain free of pain and falls Discharge Vitals Temperature 36.8 ??C Heart Rate (Monitored) 70 Respiratory Rate 16 Blood Pressure 119/74 What to do next Instructions From Your Care Team [facility] will provide home health services [phone], pt discharged home with walker and bedside commode by [facility]. Activity as tolerated. Follow a heart healthy diet. STOP the following medications: 1. Potassium Chloride (KCl) 2. Aldactone (spironolactone) 3. Demadex (torsemide) 4. Lisinopril NOTE the following dose changes: 1. Eliquis has DECREASED from 5 mg twice daily to 2.5 mg twice daily - you have a new prescription for this 2. Bisoprolol has DECREASED from 10 mg daily to 5 mg daily - you have new prescription for this Discharge Activity: Discharge Activity: Activity as tolerated Diet: Discharge Diet: Heart healthy diet Follow-Up Appointments Follow Up with VIOLETA SHARMA When 08/31/2019 01:30 PM EDT Where: [address] [facility] [address] [place] [address]- Business (1) Follow Up with BRANDT DENNIS When 08/08/2019 10:00 AM EDT Where: [address] [facility] [place] [address]- Business (1) Follow Up with Follow up with primary care provider When Within 1 to 2 weeks Comments follow-up with PCP regarding hypothyroidism Medications What How Much When Instructions Next Dose multivitamin 1 Tablet(s) Oral Every Day allopurinol (allopurinol 300 mg oral tablet) 0.5 Tablet(s) Oral Every Day apixaban (Eliquis 2.5 mg oral tablet) 1 Tablet(s) Oral Two Times A Day Printed Prescription bisoprolol (bisoprolol 5 mg oral tablet) 1 Tablet(s) Oral Every Day Printed Prescription dilTIAZem (DilTIAZem Hydrochloride ER 360 mg/ 24 hours oral capsule, extended release) 1 Capsule(s) Oral Every Day hydrALAZINE (hydrALAZINE 25 mg oral tablet) 1 Tablet(s) Oral Three Times A Day loratadine (Claritin 10 mg oral tablet) 1 Tablet(s) Oral Every Day as needed for allergy finasteride (finasteride 5 mg oral tablet) 1 Tablet(s) Oral Every Day flecainide (flecainide 50 mg oral tablet) 1 Tablet(s) Oral Every 12 hours fluticasone-vilanterol (Breo Ellipta 200 mcg-25 mcg/ inh inhalation powder) 1 Puff(s) Inhalation Every Day lidocaine topical (lidocaine 5% topical film) 1 Patch(es) TransDermal Every Day as needed for for pain apply to affected area as directed; remove patches after 12 hours tamsulosin (tamsulosin 0.4 mg oral capsule) 2 Capsule(s) Oral At Bedtime Take your medications faithfully. Do NOT skip medication. Do NOT stop taking medications without the direction of a physician. Carry a list of your medications with you at all times, and take this medication list with you to your first follow up visit. Report any side effects. Avoid herbal remedies unless discussed with your physician. As part of your treatment plan, your physician may have prescribed a limited course of a controlled substance. This medication may be given to help people with moderate or severe pain or for other medical conditions, but there are risks involved with treatment. Common side effects may include nausea, constipation, drowsiness, sweating, itching, dry mouth, and rash. More serious side effects may include cognitive and motor impairment, like problems with thinking, concentrating, alertness, and movement (e.g. slowed reflexes), and driving and operating heavy machinery can be dangerous. It is important for you to talk to your physician if you have these side effects or questions. These controlled substances can produce physical dependence and be habit-forming if taken for an extended period of time, which means that the body has gotten used to them and may experience withdrawal symptoms if they are abruptly stopped. Withdrawal symptoms can include runny nose, sweating, goose bumps, diarrhea, abdominal cramping, rapid heartbeat, difficulty sleeping, and nervousness. Please dispose of unused and medications per your retail pharmacy guidance. Allergies Lortab penicillin Immunizations This Visit No Immunizations Found Education Materials Heart-Healthy Eating Plan Heart-healthy meal planning includes: [...] plate with lean protein foods. ??? Eat 4???5 servings of vegetables per day. A serving of vegetables is: ? 1 cup of raw or cooked vegetables. ? 2 cups of raw leafy greens. ??? Eat 4???5 servings of fruit per day. A serving of fruit is: ? 1 medium whole fruit. ? ?? cup of dried fruit. ? ?? cup of fresh, frozen, or canned fruit. ? ?? cup of 100% fruit juice. ??? Eat more foods that have soluble fiber. These are apples, broccoli, carrots, beans, peas, and barley. Try to get 20???30 g of fiber per day. ??? Eat 4???5 servings of nuts, legumes, and seeds per week: ? 1 serving of dried beans or legumes equals ?? cup after being cooked. ? 1 serving of nuts is ?? cup. ? 1 serving of seeds equals [...] Fats and oils Meat fat, or shortening. [place] butter, hydrogenated oils, palm oil, coconut oil, [...] 09/26/2012 Document Revised: 05/05/2018 Document Reviewed: 05/05/2018 [employer] Interactive Patient Education ?? 2019 [employer] Bradycardia, Adult Bradycardia is a xenzby-scfh-ugcybs heartbeat. A normal resting heart rate for [...] while you go about your day. ??? An exercise test. How is this treated? Treatment for [...] provider. ??? Follow a heart-healthy diet. A nutrition club ambassador (dietitian) can help educate you about healthy [...] glass of wine (148 mL), or one 1?? oz glass of hard liquor (44 mL). General instructions ??? Take evhh-tla-vmzfsyp and prescription medicines only as told by [...] Trouble breathing. Summary ??? Bradycardia is a hfgbfy-qnqo-mspysw heartbeat. With bradycardia, the resting heart rate [...] 12/18/2002 Document Revised: 09/06/2018 Document Reviewed: 09/06/2018 [employer] Interactive Patient Education ?? 2019 [employer]. Emergency Awareness and Preventative Care STROKE is an EMERGENCY Every Minute Counts Act FAST and Check for these signs: FACE Does the face look uneven? ARM Does one arm drift down? SPEECH Does their speech sound strange? TIME Call at any sign of stroke Stroke Risk Factors Atrial Fibrillation (irregular heartbeat) Diabetes Family history of stroke Heart Disease Heavy alcohol use High Blood Pressure High Cholesterol Physical inactivity and obesity Smoking Cigarette Smoking The facts are clear, cigarette smoking will shorten your life. Smoking can cause many illnesses along the way. As a healthcare provider, we recommend that you stop smoking. Assistance with quitting is available by contacting 2-893-ZJUB-NOW. This is a free resource providing counseling, support, and referral. Or you may contact your personal physician. National Suicide Prevention Lifeline: The National Suicide Prevention Lifeline is a national network of local crisis centers that provides free and confidential emotional support to people in suicidal crisis or emotional distress 24 hours a day, 7 days a week. Don't Wait! Stop a Heart Attack Before it Starts What is a heart attack? A heart attack is damage or to a part of the heart from severely decreased or lack of blood flow to the heart. Over time, arteries can become narrow from the buildup of fat and cholesterol, which is called plaque. The plaque can rupture causing a blood clot to form. When the blood clot forms, the artery can become severely narrowed or completely blocked, causing a heart attack. Heart attack is the leading cause of in the [place]. 85% of muscle damage occurs within the first 2 hours. Delay in the recognition of heart attack symptoms increases the chances of . Know the early symptoms of a heart attack: Nausea Feeling of fullness in chest Jaw Pain Pain that travels down one or both arms Fatigue/being tired Anxiety Back Pain Chest pressure, squeezing, or discomfort Shortness of breath Sweating, or a cold sweat Feeling of impending doom There are unusual signs of a heart attack, too! Women, the elderly, and diabetics may present with atypical symptoms: Fainting/dizziness Weakness Confusion Risk Factors for a Heart Attack Some heart disease risk factors, such as age and family history, cannot be changed. Others, like smoking and lack of exercise, can be changed. Smoking High Cholesterol High Blood Pressure Family History Obesity Age Gender (Males are at higher risk) Lack of Exercise Diabetes Diet Stress Excessive Alcohol Intake If you or someone you know is experiencing the signs and symptoms of a heart attack, DON???T DELAY. Call immediately and seek help. If someone collapses, perform CPR! Do not attempt to drive if you are having symptoms of heart attack. Hands-Only CPR Why Hands-Only CPR? Hands-Only CPR has been shown to be as effective as conventional CPR for cardiac arrests that occur outside of a hospital. Survival depends on immediately receiving CPR from someone nearby. How do you perform Hands-Only CPR? There are two easy steps: Call if you see a teen or adult collapse Push hard and fast in the center of the chest at a beat of 100 beats per minute. Save a life! 4 WAYS TO GET AHEAD OF SEPSIS SEPSIS is a MEDICAL EMERGENCY. Time matters! Infections put you and your family at risk for a life-threatening condition called sepsis. Sepsis is the body's extreme response to an infection. It is life-threatening, and without timely treatment, sepsis can rapidly lead to tissue damage, organ failure, and . Sepsis happens when an infection you already have-in your skin, lungs, urinary tract or somewhere else-triggers a chain reaction throughout your body. 1 PREVENT INFECTIONS Take good care of chronic conditions. Talk to your doctor about getting the recommended vaccines. 2 PRACTICE GOOD HYGIENE Wash your hands frequently. Keep cuts or open sores clean and covered until they are healed. 3 KNOW THE SYMPTOMS Confusion or disorientation Shortness of breath High heart rate Fever, shivering, or feeling very cold Extreme pain or discomfort Clammy or sweaty skin 4 ACT FAST Get medical care IMMEDIATELY if you suspect sepsis or if you have an infection that is not getting better or is getting worse. To learn more about sepsis and how to prevent infections, visit www.cdc.gov/sepsis. Test Results Laboratory or Other Results This Visit (last charted value for your 07/27/2019 visit) Hematology 07/28/2019 2:44 AM WBC: 7.1 K/uL -- Normal range between ( 3.6 and 9.5 ) RBC: 2.92 Million/uL -- Normal range between ( 4.20 and 5.70 ) Hct: 28.9 % -- Normal range between ( 40.1 and 51.0 ) Hgb: 9.6 g/dL -- Normal range between ( 13.5 and 17.3 ) Platelet Count: 152 K/uL -- Normal range between ( 163 and 369 ) MCH: 32.9 pg -- Normal range between ( 25.6 and 32.2 ) MCHC: 33.2 Gram/dL -- Normal range between ( 32.2 and 36.5 ) MCV: 99.0 fL -- Normal range between ( 79.0 and 94.8 ) Slide Review: No Eos %: 1.5 % -- Normal range between ( 0.0 and 7.0 ) Geary #: 0.75 K/uL -- Normal range between ( 0.16 and 1.00 ) Eos #: 0.11 x10(3)/uL -- Normal range between ( 0.00 and 0.80 ) [place]ary %: 10.5 % -- Normal range between ( 3.0 and 9.0 ) Baso %: 0.4 % -- Normal range between ( 0.0 and 1.5 ) Baso #: 0.03 x10(3)/uL -- Normal range between ( 0.00 and 0.20 ) RDW: 15.1 % -- Normal range between ( 11.7 and 14.9 ) Neut %: 65.1 % -- Normal range between ( 34.0 and 71.0 ) Neut #: 4.64 K/uL -- Normal range between ( 1.56 and 6.13 ) Lymph %: 22.2 % -- Normal range between ( 19.3 and 53.1 ) Lymph #: 1.58 x10(3)/uL -- Normal range between ( 1.00 and 3.90 ) MPV: 10.7 fL -- Normal range between ( 9.4 and 12.4 ) IG#: 0.02 x10(3)/uL -- Normal range between ( 0.00 and 0.05 ) IG%: 0.30 % -- Normal range between ( 0.00 and 0.60 ) 07/27/2019 11:[address] Oth: 0 % -- Normal range between ( 0 and 5 ) Urinalysis 07/27/2019 11:54 AM Ur RBC: TNTC /HPF Urine Nitrite: Negative Urine Leukocyte Esterase: Trace Urine Appearance: Clear Urine Glucose Dipstick: Negative Ur Renal Epithelial Cells: 0-2 /HPF Urine Blood Dipstick: Large Urine Type: U Cath Urine Urobilinogen Dipstick: 0.2 EU/dL Urine Protein Dipstick: 30 Ur Bacteria: Trace Urine Color: Yellow Ur WBC: 0-2 /HPF Urine Ketones Dipstick: Negative Urine pH Dipstick: 5.0 -- Normal range between ( 6.0 and 8.0 ) Urine Bilirubin Dipstick: Negative Urine Specific [place]: 1.015 -- Normal range between ( 1.005 and 1.030 ) Microbiology 07/27/2019 1:12 AM Blood Culture: See Result Urine Chemistry 07/27/2019 11:54 AM Creatinine Urine Random: 114 mg/dL Urea Nitrogen Urine Random: 790 mg/dL Sodium Ur [place]: 62 mMole/Liter Protein Ur [place]: 42 mg/dL General Chemistry 07/31/2019 3:36 AM Creatinine Level: 1.10 mg/dL -- Normal range between ( 0.70 and 1.30 ) Sodium Level: 136 mmol/L -- Normal range between ( 136 and 146 ) Potassium Level: 4.3 mmol/L -- Normal range between ( 3.5 and 5.1 ) Chloride Level: 108 mmol/L -- Normal range between ( 102 and 112 ) Carbon Dioxide Level: 23 mmol/L -- Normal range between ( 21 and 32 ) Anion Gap: 9 -- Normal range between ( 9 and 20 ) Bilirubin Total: 0.4 mg/dL -- Normal range between ( 0.2 and 1.2 ) A/G Ratio: 0.7 -- Normal range between ( 1.1 and 2.5 ) ALT: 16 Units/Liter -- Normal range between ( 16 and 61 ) AST: 16 Units/Liter -- Normal range between ( 5 and 37 ) Globulin: 4.1 Gram/dL -- Normal range between ( 1.5 and 4.5 ) Alk Phos: 69 Units/Liter -- Normal range between ( 27 and 136 ) Bun/Creatinine: 15.5 -- Normal range between ( 8.0 and 20.0 ) Calcium Level: 9.4 mg/dL -- Normal range between ( 8.4 and 10.1 ) eGFR : >60 mL/min/1.73m2 eGFR NonAfrican: >60 mL/min/1.73m2 Glucose Level: 87 mg/dL -- Normal range between ( 74 and 106 ) Blood Urea Nitrogen: 17 mg/dL -- Normal range between ( 7 and 22 ) Protein Total: 6.8 Gram/dL -- Normal range between ( 6.4 and 8.2 ) Albumin Level: 2.7 Gram/dL -- Normal range between ( 3.4 and 5.0 ) 07/30/2019 0:02 AM Glucose POC2: 91 mg/dL -- Normal range between ( 70 and 110 ) Device Comment 1: Device Comment 1 07/28/2019 2:44 AM Magnesium Level: 2.0 mg/dL -- Normal range between ( 1.5 and 2.4 ) Phosphorus: 3.6 mg/dL -- Normal range between ( 2.5 and 4.9 ) 07/27/2019 11:54 AM Lactate Dehydrogenase: 128 Units/Liter -- Normal range between ( 87 and 241 ) 07/27/2019 1:12 AM Lactic Acid Level: 1.0 mmol/L -- Normal range between ( 0.4 and 2.0 ) 07/27/2019 1:07 AM Hgb A1C: 5.9 % eAVG Glucose: 123 mg/dL Cardiac Specific Markers 07/27/2019 11:54 AM CK: 821 Units/Liter -- Normal range between ( 39 and 308 ) 07/27/2019 1:12 AM ProBNP: 130 pg/mL -- Normal range between ( 0 and 125 ) Coagulation 07/27/2019 1:07 AM INR: 1.0 -- Normal range between ( 0.9 and 1.1 ) PT: 10.7 Second(s) -- Normal range between ( 9.6 and 12.0 ) Endocrinology 07/30/2019 3:04 AM FT4: 1.09 ng/dL -- Normal range between ( 0.76 and 1.46 ) 07/27/2019 1:12 AM TSH: 0.175 mcInt Units/mL -- Normal range between ( 0.358 and 3.740 ) Procalcitonin: <0.25 ng/mL -- Normal range between ( 0.00 and 2.00 ) Computed Tomography 07/27/2019 3:[address] Abdomen Pelvis WO: CT Abdomen Pelvis WO Patient Name:AVI SKY I have received and understand this information and was given the opportunity to ask questions. Patient/Senior Military Analyst Name: Patient/Senior Military Analyst Signature: Relationship to Patient: Clinician/Hospital Senior Military Analyst Signature: Date: Electronically signed by Romulo, [facility] Conversion Wind Turbine Controls Engineer Cerner at 07/26/2022 6:16 PM CDT documented in this encounter Plan of Treatment Not on file documented as of this encounter Visit Diagnoses Not on filedocumented in this encounter
--- OUTSIDE RECORDS SUMMARY | 2025-02-06 12:34 | XMS_ITS | Encounter Summary ---
Author Organization [employer] ([place], [place], [place], [place]) Address [address] [place] [address] Care Team Providers Care Strap Sewer Name Role Phone Unavailable Primary Care Provider Unavailabl e Encounter Details Date Type Department Care Team (Late st Contact Info) Description 07/27/2019 Transcribed Document [facility] [place] [facility] [address] [place] [address] ProviderTobias MD [address] [place] [address] Social History Tobacco Use Types [...] Conversion Note - Tobias ProviderMD - 07/27/2019 1:12 AM CDT Education-(VTE) / (DVT) Entered On: 07/27/2019 12:46 EDT Performed On: 07/27/2019 1:12 EDT by LORENZO KYLE RN Teaching/Learning Assessment Barriers To Learning : Cognitive deficit Individuals Taught : Patient, Spouse Readiness to Learn : Cooperative Highest Level of Education : High school Baseline Knowledge of Topic : Good Readiness to Learn : Explanation Learning Style Preferences Patient : Verbal explanation Learning Style Preferences Family : Verbal explanation LORENZO KYLE RN - 07/27/2019 12:46 EDT Education Topics: VTE/DVT Education Topics: VTE/DVT Activity Limitations/Expectations : Verbalizes understanding Antiembolic hose : Verbalizes understanding VTE/DVT prophylaxis : Verbalizes understanding Foot Pumps : Verbalizes understanding Medications : Verbalizes understanding Sequential Compression Device : Verbalizes understanding Smoking Cessation : Verbalizes understanding Risk for developing a VTE : Verbalizes understanding Signs and symptoms of a VTE : Verbalizes understanding Treatment/prophylaxis for VTE : Verbalizes understanding Encourage early ambulation : Verbalizes understanding VTE/DVT, Other : Verbalizes understanding LORENZO KYLE RN - 07/27/2019 12:46 EDT Electronically signed by Millie Sebastian Conversion Software Controls Engineer Cerner at 07/26/2022 6:24 PM CDT documented in this encounter Plan of Treatment Not on file documented as of this encounter Visit Diagnoses Not on filedocumented in this encounter
--- OUTSIDE RECORDS SUMMARY | 2025-02-06 12:34 | XMS_ITS | Encounter Summary ---
Author Organization [employer] ([place], [place], [place], [place]) Address [address] [place] [address] Care Team Providers Care Software Development Intern Name Role Phone Unavailable Primary Care Provider Unavailabl e Encounter Details Date Type Department Care Team (Late st Contact Info) Description 08/01/2019 Transcribed Document [facility] [place] Family Medicine [address] [place] [address] ProviderTobias MD [address] [place] [address] Social History Tobacco Use Types [...] Conversion Note - Tobias ProviderMD - 08/01/2019 1:33 PM CDT Patient: AVI SKY Age: 69 Years Sex: Male : 1950 Admit Date 07/27/2019 00:54 Discharge Date 08/01/2019 Primary Care Provider Discharge Diagnosis Bradycardia 08/01/2019 R00.1 ICD-10-CM Reason for Hospitalization Patient is a 69-year-old male with a history of hypertension, hyperlipidemia, atrial fibrillation, gout, and chronic kidney disease stage III who presented to [facility] with weakness and fatigue. The patient is somewhat of a poor historian, so additional information is obtained from review of available medical records and discussion with the accepting physician. The patient reportedly [facility] with a 2-week history of weakness, dizziness, [...] has been consulted for assistance in management. Hospital Course SICK SINUS SYNDROME Now RESOLVED Sinus bradycardia, 2/2 hyperkalemia/ARF Dr. Sharma Lowered dose of bisoprolol from 10 mg daily to 5 mg daily He lowered dose of Eliquis from 5 mg BID to 2.5 mg BID He resuemd cardizem-CD - HR initially in 30s, improved to 70s NSR w/ correction of K - initial potassium 7.4 at OSH, improved to normal now, w/ tx - nephrology consulted, continue to monitor on IVF. - Acute kidney injury on CKD3, likely prerenal/Left renal Mass/hematuria RESOLVED COMPLETELY - baseline Cr 1.6-1.9 per records. Cr [...] lisinopril. Chronic atrial fibrillation - on Eliquis, - BB/CCB and fleccainide held for hypotension/bradycardia. - EP consulted. - low TSH on admission will check Free T4 Hypertension Resumed Hydralazine on Bisporolol and Cardizem left renal Mass evaluated by Dr. Dennis Urology on 07-27-2019 follow up with him as ourpatient Hematuria Completely resolved Evaluated by Dr. Dennis F/U with Dr. Dennis as outpatient Rx at discharge Prescribed apixaban 2.5 mg : 1 Tab, Oral, BID, 60 Tab, 0 Refill(s). bisoprolol 5 mg : 1 Tab, Oral, Daily, 30 Tab, 1 Refill(s). Vital Signs T: 36.7 ??C TMIN: 36.4 ??C TMAX: 36.7 ??C HR: 84 RR: 16 BP: 147/92 SpO2: 96% Oxygen Settings (Last) Oxygen Therapy Mode: Room air (08/01/19 08:00:00) Physical Exam Physical Exam Vitals Signs (last 24 hrs) Last Charted Minimum Maximum Temp 98 (JUL 31 06:11) 97.5 (JUL 31 03:00) 98.1 (JUL 30 14:56) Apical HR 84 (JUL 31 08:34) 84 (JUL 31 08:34) 84 (JUL 31 08:34) Mon HR 78 (JUL 31 07:57) 72 (JUL 30 17:46) 78 (JUL 31 07:57) Resp Rate 16 (JUL 31 07:57) 16 (JUL 30 17:46) 18 (JUL 30 20:49) SBP H 147 (JUL 31 06:11) 128 (JUL 30 14:56) H 147 (JUL 31 06:11) DBP H 92 (JUL 31 06:11) 69 (JUL 30 17:46) H 92 (JUL 30 14:56) MAP 122 (JUL 31 06:11) 81 (JUL 30 17:46) 122 (JUL 31 06:11) SpO2 96 (JUL 31 08:00) 95 (JUL 31 03:00) 97 (JUL 30 17:46) GENERAL: Awake, alert, and oriented to time, place, and person. HEENT: Head is atraumatic, normocephalic. Mucous membranes are dry. No pallor. No jaundice. No cyanosis NECK: Supple. No jugular vein distention. HEART: Regular rate and rhythm. No gallop, rub, or murmur. Normal first and second sounds. No third or fourth sounds. CHEST: Clear to auscultation bilaterally. No wheezes, rales, or crackles. ABDOMEN: Soft, active bowel sounds. No hepatosplenomegaly. No masses. No tenderness. No abdominal distention. Audible bowel sounds in all four abdominal quadrants. GENITOURINARY: No suprapubic tenderness. No suprapubic fullness. No CVA tenderness bilaterally. EXTREMITIES: No clubbing, no cyanosis, no edema. VASCULAR: 2+ pulses dorsalis pedis and posterior tibialis arteries bilaterally. PSYCHIATRIC: Not depressed or anxious. NEUROLOGIC EXAMINATION: Cranial nerves 2 through 12 grossly intact. There is no apparent motor focal weakness in the upper or lower extremities. No facial droop bilaterally. No neurological deficits in upper or lower or lower extremities. MUSCULOSKELETAL: No joint deformity in both knees or both ankles. SKIN: No hematomas. No purpura. No bruises. ENDOCRINE: No thyroid enlargement or nodules. Discharge Disposition Home Discharge Follow Up Follow up with primary care provider - Within 1 to 2 weeks BRANDT DENNIS - Within 1 to 2 weeks VIOLETA SHARMA - 01:30 PM Discharge Medications (12) Active allopurinol 300 mg oral tablet 150 mg = 0.5 Tab, Oral, Daily bisoprolol 5 mg oral tablet 5 mg = 1 Tab, Oral, Daily Breo Ellipta 200 mcg-25 mcg/inh inhalation powder 1 Puff, Inhalation, Daily Claritin 10 mg oral tablet 10 mg = 1 Tab, PRN, Oral, Daily DilTIAZem Hydrochloride ER 360 mg/24 hours oral capsule, extended release 360 mg = 1 Cap, Oral, Daily Eliquis 2.5 mg oral tablet 2.5 mg = 1 Tab, Oral, BID finasteride 5 mg oral tablet 5 mg = 1 Tab, Oral, Daily flecainide 50 mg oral tablet 50 mg = 1 Tab, Oral, Q12H hydrALAZINE 25 mg oral tablet 25 mg = 1 Tab, Oral, TID lidocaine 5% topical film 1 Patch, PRN, TransDermal, Daily multivitamin 1 Tab, Oral, Daily tamsulosin 0.4 mg oral capsule 0.8 mg = 2 Cap, Oral, At Bedtime Code Status Start: 07/27/19 1:12:00 EDT, Full Code, Continuous Order Condition on Discharge stable Consulting Physicians JAZMYN RIVERO MD (please call in [facility]) - Lorin STERLING TIMOTHY, MD MONNIG, STEPHEN J, MD-URO ZACHARY, VIOLETA Sharp MD-CAR - bradycardia Current Diet Order Diet, Adult - Ordered -- Start: 07/27/19 12:24:00 EDT, 60 gm [id number] harika, Instructions: Diabetic Diet Patient Discharge Summary Orders Discharge Activity: Discharge Activity: Activity as tolerated Diet: Discharge Diet: Heart healthy diet Follow Up Labs/Studies Electrolytes(BMP) Results (Current Encounter/Past 24 Hours) Sodium Level 136 mmol/L 07/31/2019 04:59 Potassium Level 4.3 mmol/L 07/31/2019 04:59 Chloride Level 108 mmol/L 07/31/2019 04:59 Carbon Dioxide Level 23 mmol/L 07/31/2019 04:59 Anion Gap 9 07/31/2019 04:59 Blood Urea Nitrogen 17 mg/dL 07/31/2019 04:59 Glucose Level 87 mg/dL 07/31/2019 04:59 Calcium Level 9.4 mg/dL 07/31/2019 04:59 Creatinine Level 1.10 mg/dL 07/31/2019 04:59 Cardiac Markers (Current Encounter/Past 24 Hours) No Cardiac Marker Results Found (Past 24 Hours) CBC Results (Current Encounter/Past 24 Hours) No CBC Results Found (Past 24 Hours) CMP Results (Current Encounter/Past 24 Hours) Globulin 4.1 Gram/dL 07/31/2019 04:59 A/G Ratio 0.7 LOW 07/31/2019 04:59 Protein Total 6.8 Gram/dL 07/31/2019 04:59 eGFR >60 mL/min/1.73m2 07/31/2019 04:59 Creatinine Level 1.10 mg/dL 07/31/2019 04:59 Bun/Creatinine 15.5 07/31/2019 04:59 eGFR NonAfrican >60 mL/min/1.73m2 07/31/2019 04:59 Sodium Level 136 mmol/L 07/31/2019 04:59 Potassium Level 4.3 mmol/L 07/31/2019 04:59 Chloride Level 108 mmol/L 07/31/2019 04:59 Carbon Dioxide Level 23 mmol/L 07/31/2019 04:59 Anion Gap 9 07/31/2019 04:59 Alk Phos 69 Units/Liter 07/31/2019 04:59 ALT 16 Units/Liter 07/31/2019 04:59 AST 16 Units/Liter 07/31/2019 04:59 Blood Urea Nitrogen 17 mg/dL 07/31/2019 04:59 Glucose Level 87 mg/dL 07/31/2019 04:59 Albumin Level 2.7 Gram/dL LOW 07/31/2019 04:59 Bilirubin Total 0.4 mg/dL 07/31/2019 04:59 Calcium Level 9.4 mg/dL 07/31/2019 04:59 Creatinine Clearance (Current Encounter/Past 24 Hours) Creatinine Level 1.10 mg/dL 07/31/2019 04:59 Bun/Creatinine 15.5 07/31/2019 04:59 Estimated Creatinine Clearance 66.55 mL/Min 07/31/2019 04:59 Radiology Results REPORT 07-27-2019 CT SCAN OF ABDOMEN AND PELVIS WITHOUT CONTRAST HISTORY: Hematuria. Renal mass. PROCEDURE: Axial images were obtained from the lung bases to the pubic symphysis by computed tomography. FINDINGS: ABDOMEN: The examination is limited by patient respiratory motion. There is a small hiatal hernia. The lung bases are clear. The heart size is normal. The limited noncontrast images of the liver are normal. The spleen is normal. The adrenal glands are prominent suggestive of adrenal hyperplasia. The aorta is normal in caliber. There are aortic vascular calcifications. There is no significant free fluid or adenopathy. There are no renal stones. There is exophytic mass in the lower pole of the left kidney measuring 6 x 5.3 cm. There is no hydronephrosis. PELVIS: The appendix is not identified. The urinary bladder is decompressed by Pa catheter. There is moderate sigmoid diverticulosis. There is no significant fluid or adenopathy. There are postoperative and degenerative changes of the lumbar spine. IMPRESSION: Indeterminate, exophytic mass in the lower pole of the left kidney. Time Spent on Discharge 35 minutes documented in this encounter Plan of Treatment Not on file documented as of this encounter Visit Diagnoses Not on filedocumented in this encounter
--- OUTSIDE RECORDS SUMMARY | 2025-02-06 12:34 | XMS_ITS | Encounter Summary ---
Author Organization [employer] ([place], [place], [place], [place]) Address [address] [place] [address] Care Team Providers Care Turbine Room Attendant Name Role Phone Unavailable Primary Care Provider Unavailabl e Encounter Details Date Type Department Care Team (Late st Contact Info) Description 07/31/2019 Transcribed Document [facility] [place] Family Medicine [address] [place] [address] ProviderTobias MD [address] [place] [address] Social History Tobacco Use Types [...] Conversion Note - Historical ProviderMD - 07/31/2019 12:32 PM CDT Patient: AVI PHILLIPS Age: 69 Years Sex: Male : 1950 DATE OF SERVICE: 07/31/2019 Subjective Patient doing well denies any new [...] While patient is in bed, Continuous Order D/C Normal saline at 100 Monitor OFF saline TIME SPENT: 34 minutes Medications allopurinol, 300 mg= 1 Tab, Oral, [...] mg= 2 mL, IV Push, Q6H, PRN Diagnostic Results Lab Results Test Name Test Result Date/Time [...] 07/30/2019 00:02 EDT Device Comment 1 Notified RBV 07/29/2019 16:03 EDT Glucose POC2 91 mg/dL 07/30/2019 00:02 EDT Glucose POC2 101 mg/dL 07/28 Electronically signed by Romulo, [facility] Conversion Construction Foreman Cerner at 07/26/2022 6:21 PM CDT documented in this encounter Plan of Treatment Not on file documented as of this encounter Visit Diagnoses Not on filedocumented in this encounter
--- OUTSIDE RECORDS SUMMARY | 2025-02-06 12:34 | XMS_ITS | Encounter Summary ---
Author Organization [employer] ([place], [place], [place], [place]) Address [address] [place] [address] Care Team Providers Care Rn Operating Room Name Role Phone Unavailable Primary Care Provider Unavailabl e Encounter Details Date Type Department Care Team (Late st Contact Info) Description 07/31/2019 Transcribed Document [facility] [place] [address] [place] [address] ProviderTobias MD [address] [place] [address] Social History Tobacco Use Types [...] Conversion Note - Historical ProviderMD - 07/31/2019 8:27 AM CDT DATE OF CONSULTATION: ELECTROPHYSIOLOGY CONSULTATION HISTORY OF PRESENT ILLNESS: Mr. Avi Phillips was transferred for acute and severe renal insufficiency, creatinine in the 7s, that has come down nicely, however, it is now 1.3. We were asked to see the patient because of a history of atrial fibrillation and sinus bradycardia. He has had moderately severe sinus bradycardia, heart rates frequently down in the low 40s. The patient has been on low-dose flecainide for control of his atrial fibrillation, 50 mg b.i.d. He was on apparently bisoprolol and diltiazem that has been held. He has been on long-term Eliquis that was held, however, because on admission he did have some hematuria that has resolved. The patient does also have some ventricular ectopic beats. The QT interval appears normal. No ventricular tachycardia. Echocardiogram shows concentric LVH, but preserved LV systolic function. There is some mild to moderate left atrial enlargement. No significant valvular abnormalities. SOCIAL HISTORY: He lives with his . No history of alcohol abuse, drug abuse, etc. Nonsmoker. REVIEW OF SYSTEMS: GENERAL: No chest pain, orthopnea, PND. No recent palpitations. No syncope. No fever, chills, or weight loss reported. EYES: No visual changes or diplopia. ENT: No swallowing problems or URI type symptoms. PULMONARY: No cough or sputum production. No COVID symptoms. CARDIAC: See above. GASTROINTESTINAL: Abdominal pain, nausea, vomiting, melena, hematochezia. NEUROLOGIC: No history of stroke or focal neurological symptoms. HEMATOLOGIC: No easy bruising. He has had hematuria as mentioned that has resolved. PSYCHIATRIC: Negative. PHYSICAL EXAMINATION: GENERAL: He is in no acute distress. VITAL SIGNS: Blood pressure 154/81, heart rate 73 and regular, respirations 18, O2 sat is 96% on room air. HEENT: Head is atraumatic. Sclerae nonicteric. Mucous membranes are moist. No JVD or carotid bruits appreciated. LUNGS: Clear. HEART: Regular. No murmurs, gallops, or rubs. ABDOMEN: Soft. EXTREMITIES: There is no significant trunk or lower extremity edema. SKIN: Normal. PSYCHIATRIC: Normal. DIAGNOSTIC STUDIES: LABORATORY RESULTS: BUN 25, creatinine 1.3. Potassium 4.3, liver enzymes are normal. TSH was slightly low at 0.175. He has been on no thyroid supplement. Hemoglobin is 9.6, platelet count is 151, white blood count is 7.1. ASSESSMENT: 1. Sick sinus syndrome, moderately severe sinus bradycardia that has been persistent, recurrent. 2. Multiple ventricular ectopic beats. He is on some treatment for that. Diltiazem and bisoprolol that have been held presently. 3. History of atrial fibrillation, on Eliquis and other medications as mentioned above. 4. Hematuria, resolved. 5. Borderline hyperthyroidism. PLAN: I do think the patient would benefit from a pacemaker, and he says that he has been told that before, so we will plan on getting him scheduled, and then will need to treat for paroxysmal atrial fibrillation as he has had that in the past, probably, we will thus go back to his flecainide, bisoprolol, diltiazem combination. /[id number] MD CONSUELO Smith/DELIO / CONSUELO / ANGIE /[id number] Electronically signed by Interface, [facility] Conversion Sanitary [employer] Machine Tender Cerner at 07/26/2022 6:20 PM CDT documented in this encounter Plan of Treatment Not on file documented as of this encounter Visit Diagnoses Not on filedocumented in this encounter
--- OUTSIDE RECORDS SUMMARY | 2025-02-06 12:34 | XMS_ITS | Encounter Summary ---
Author Organization [employer] ([place], [place], [place], [place]) Address [address] [place] [address] Care Team Providers Care Event Set Up Specialist Name Role Phone Unavailable Primary Care Provider Unavailabl e Encounter Details Date Type Department Care Team (Late st Contact Info) Description 07/27/2019 Transcribed Document [facility] [place] Family Medicine [address] [place] [address] ProviderTobias MD [address] [place] [address] Social History Tobacco Use Types [...] Note - Historical ProviderMD - 07/27/2019 12:53 AM CDT Admission History, Adult Entered On: 07/27/2019 12:43 EDT Performed On: 07/27/2019 0:53 EDT by LORENZO KYLE RN Advance Directive Patient has Advance Directive *Q : No, patient refuses Advance Directive information LORENZO KYLE RN - 07/27/2019 12:28 EDT Anesthesia/Transfusion History Family History of Anesthesia Reaction : No prior transfusion(s) Blood Transfusion Acceptable to Patient : Yes Transfusion History : Prior anesthesia without reaction Family History of Anesthesia Reaction : None LORENZO KYLE RN - 07/27/2019 12:28 EDT Functional Assessment Living Situation : Home Patient Lives With : Spouse Persons Assisting Patient at Home : Alone Current Daily Living Assistance : None Sensory Deficits : None Mobility Assistance Prior to Admission : Partial assistance ABDI Hx Falls Immediate/Within 3 Months : Yes Current Home Treatments : None Home Equipment : None Professional Skilled Services : None Special Services and Community Resources : None LORENZO KYLE RN - 07/27/2019 12:28 EDT General Info Unable to Assess Patient History : Patient confused Arrived From : Acute Care Facility Mode of Arrival on Unit : Stretcher Legal Guardian : Unaccompanied Legal Guardian : No Legal Record of Guardianship Obtained : No Support Person/Pt Rep Name : Clari Phillips Contact Password : JJ Support Person/Pt Rep Contact Information : [phone] Want Family/Rep/Phys Notified of Admit : Yes Name/Contact Info Fam/Rep Notified Adm : Clari Phillips Name/Contact Info Physician Notified Adm : N/A Emergency Contact #1 : Clari Phillips Emergency Contact #1 Emergency Contact #1 Relationship : Emergency Contact #2 : Luciana Emergency Contact #2 Phone Number : Emergency Contact #2 Relationship : daughter Information Obtained From : Spouse Primary Language : Pashto Preferred Communication Mode : Verbal Communication Barrier : None Objects to Sharing Info w Family : No Currently Lactating : N/A Status : N/A Clinical Trials Participant *Q : None CTP, None *Q : Yes LORENZO KYLE RN - 07/27/2019 12:28 EDT Fall Risk Scales ABCs Fall Injury Risk Identification : Age ABC Fall Injury Risk : Moderate to high injury risk Injury Moderate to High Risk Interventions : Bed alarm on, Fall mat, Fall contract/letter per facility policy, High Risk for Fall Injury sign in place per policy, Patient room close to nurses station, Personal alarm on, Specialty low bed, Supervise toileting as indicated, Toileting schedule, Transport methods appropriate to patient, Visual cues in place, Wrist band (fall risk) on per policy ABDI Hx Falls Immediate/Within 3 Months : Yes Abdi Secondary Diagnosis : No ABDI Use of Ambulatory Aid : Crutches/Cane/Walker ABDI IV Therapy or IV Access : Yes Abdi Gait/Transferring : Weak Abdi Mental Status : Overestimates/Forgets limitations Abdi Fall Risk Score : 85 ABDI Fall Scale Risk Level : 46 or > High Risk [place] Fall Interventions : Adequate lighting, Assistive devices within reach, Bed in low position, Call device within reach, Fall prevention handout/education per facility policy, Frequent orientation to call device, Frequent orientation to surroundings, Hourly comfort/safety rounds, Non-slip footwear, Personal items within reach, Reinforced to call for assistance before getting out of bed, Room free of clutter/spills, Upper side-rails up, Wheels locked, Wires/Cords secured Fall Moderate to High Risk Interventions : Bed alarm on, Fall contract/letter per facility policy, High Risk for Fall sign in place per policy, Patient room close to nurses station, Supervise toileting as indicated, Transport methods appropriate to patient, Toileting schedule, Video observation in place, Visual cues in place, Wrist band (fall risk) on LORENZO KYLE RN - 07/27/2019 12:28 EDT Fall Risk Education Grid Alarms : Verbalizes understanding Assistive Equipment Use : Verbalizes understanding Bed Height/Stabilization : Verbalizes understanding Call light use : Verbalizes understanding Door Open : Verbalizes understanding Environmental Management : Verbalizes understanding Eyeglasses Use : Verbalizes understanding Fall Community Resources : Verbalizes understanding Fall Contract/Letter : Verbalizes understanding Fall Prevention in the Home : Verbalizes understanding Fall Prevention Protocol : Verbalizes understanding Hearing Aid Use : Verbalizes understanding Home Risk Assessment : Verbalizes understanding Need Constant Observation : Verbalizes understanding Night Light Use : Verbalizes understanding Nonskid Footwear Use : Verbalizes understanding Notification of Staff When Leaving : Verbalizes understanding Orthostatic Hypotension Precautions : Verbalizes understanding Personal Article Availability : Verbalizes understanding Prevention Responsibility Family : Verbalizes understanding Prevention Responsibility Patient : Verbalizes understanding Risk Alert Methods : Verbalizes understanding Risk Factors : Verbalizes understanding Safety Aids : Verbalizes understanding Siderails use/risks : Verbalizes understanding Special Assistive Devices : Verbalizes understanding Staff Responsiveness : Verbalizes understanding Symptom Identification & Action Plan *Q : Verbalizes understanding Symptom Reporting : Verbalizes understanding Toileting Schedule : Verbalizes understanding Transfer/Mobility Techniques : Verbalizes understanding Urinal/Bedpan Availability : Verbalizes understanding Wait for Assistance : Verbalizes understanding Wheelchair Safety : Verbalizes understanding LORENZO KYLE RN - 07/27/2019 12:28 EDT Barriers to Learning : Cognitive deficit Individuals Taught : Patient, Spouse, Child Readiness to Learn : Cooperative Highest Level of Education : High school Baseline Knowledge of Topic : Good Teaching Method : Explanation Learning Style Preferences Family : Verbal explanation Learning Style Preferences Patient : Verbal explanation Teaching Evaluation : Verbalizes understanding Fall Risk Scale Calc Temp : 1 LORENZO KYLE RN - 07/27/2019 12:28 EDT Health Histories Smoking Status : Former smoker, quit more than 30 days ago Smokeless Tobacco Status : Never LORENZO KYLE RN - 07/27/2019 12:28 EDT Social History (As Of: 07/27/2019 12:43:16 EDT) Tobacco: Use in Last 12 Months: No. Smoking Status Former smoker. Last Used: quit 8 years ago. (Last Updated: 03/31/2015 07:33:08 EST by Jinny Ramirez, TETO) Alcohol: Alcohol Use History No. (Last Updated: 03/31/2015 07:33:12 EST by Jinny Ramirez RN) Substance Abuse: Drug Use Hx: No. (Last Updated: 03/31/2015 07:33:15 EST by Jinny Ramirez RN) Height and Weight, Clinical Dosing Height Source : Stated Height Entry Format : [place] Height, Feet : 5 ft(Converted to: 152 [...] Body Mass Index : 36.8 kg/m2 ([place]) [place] Body Weight : 74 kg LORENZO KYLE RN - 07/27/2019 12:28 EDT Infectious Disease History COVID19 Screening : No Experiencing Infectious Disease Symptoms : Weakness/Fatigue Physical contact outside [place] in the last 30 days : No Infectious Disease History : Chicken pox/Shingles Tuberculosis Symptoms : Loss of Appetite LORENZO KYLE RN - 07/27/2019 12:28 EDT Tetanus Immunization Status Previous Tetanus Immunizations : No qualifying data available. Tetanus Immunization : Unknown LORENZO KYLE RN - 07/27/2019 12:28 EDT Influenza Vaccine Asmt, Adult Previous Vaccines from Immunization Schedule : No qualifying data available. Influenza Immunization, Current Season : No Inactivated Flu Vaccine Contraindications : No contraindications to inactivated influenza vaccine Transplant Workup/Recent Transplant : No Order for Influenza Vaccine : Declined Vaccination Influenza Vaccine Education Topics : [facility] educational materials provided for patient LORENZO KYLE RN - 07/27/2019 12:28 EDT Pneumococcal Vaccine Previous Vaccines from Immunization Schedule : No qualifying data available. Pneumonia Immunization Received : No Pneumococcal Risk Assessment < Age 65 : N/A- Patient 65 years of age or older Pneumococcal Vaccine Contraindications : No contraindications to pneumococcal vaccine Transplant Workup/Recent Transplant : No Order for Pneumococcal Vaccine : Declined Vaccination LORENZO KYLE RN - 07/27/2019 12:28 EDT Order Details Transport Mode Order Detail : Stretcher/Gurney Isolation Precautions Order Detail : Standard Precautions Order Detail : N/A IV Order Detail : 1 Oxygen Order Detail : 0 Nurse Collect Order Detail : 1 Lift/Transfer : Moderate assist Central Line Order Detail : No Room Service : Needs Assistance Arterial Line : No LORENZO KYLE RN - 07/27/2019 12:28 EDT Nutrition History Weight Entry Format Nutrition History : [place] Feeding Ability : Set-up Usual Weight, Pounds : 263 lb Adaptive Feeding Equipment : None Clinical Weight Calculated : 119.55 kg Adaptive Feeding Equipment : Regular Oral Medication Administration : By mouth Eating Poorly Due to Decreased Appetite : Yes Unplanned Weight Loss in Past 3-6 Months : Unsure Unplanned Weight Loss Amount : Unsure Malnutrition Screening Tool Total(mal) : 5 Malnutrition Screening Tool Risk Level : Patient at risk LORENZO KYLE RN - 07/27/2019 12:28 EDT [place] Suicide Severity Rating Scale (C-SSRS) CSSRS Past Month Wish to be : No CSSRS Past Month Suicidal Thoughts : No CSSRS Lifetime Suicide Behavior : No Suicide Severity Rating Score : 0 Suicide Severity Rating : No Additional Care Required at this time Thoughts of Harming/Killing Others : No LORENZO KYLE RN - 07/27/2019 12:28 EDT Psychosocial History Does Someone Depend on You for Care? : No Do You Have a History of the Following? : Patient denies history Currently in Unsafe Situation : No Restraining Order Against Another Person : No Do You Have a Support System? : Yes Who is Your Support System? : family Hospital/DC Financial Concerns : No Stressors Affecting Hospitalization/DC : No LORENZO KYLE RN - 07/27/2019 12:28 EDT Sleep Apnea Risk Assmt Hx of Obstructive Sleep Apnea Diagnosis : No Snore Loudly : No Tired, Fatigued, or Sleepy During Day : No Observed Stopping Breathing During Sleep : No Have/Are Being Treated for Hypertension : Yes BMI Greater Than 35 kg/m2 : Yes Age over 50 Years Old : Yes Neck Circumference Greater Than 40 cm : No Gender Male : Yes [place] Sleep Apnea Risk Level Score : 4 LORENZO KYLE RN - 07/27/2019 12:28 EDT Spiritual/Cultural Needs Significant Loss/Crisis in Past 3 Years : No Significant Distress/Coping/Need Support : No Any Spiritual/Cultural Needs or Requests : No LORENZO KYLE RN - 07/27/2019 12:28 EDT Valuables and Belongings Valuables and Belongings : Clothing, Personal items Clothing : Outerwear Clothing Disposition : Bedside Personal Items : Cell phone Personal Items Disposition : Bedside LORENZO KYLE RN - 07/27/2019 12:28 EDT documented in this encounter Plan of Treatment Not on file documented as of this encounter Visit Diagnoses Not on filedocumented in this encounter
--- OUTSIDE RECORDS SUMMARY | 2025-02-06 12:34 | XMS_ITS | Encounter Summary ---
Author Organization [employer] ([place], [place], [place], [place]) Address [address] [place] [address] Care Team Providers Care Storage Manager Name Role Phone Unavailable Primary Care Provider Unavailabl e Encounter Details Date Type Department Care Team (Late st Contact Info) Description 07/27/2019 Transcribed Document [facility] [place] [address] [place] [address] ProviderTobias MD [address] [place] [address] Social History Tobacco Use Types [...] Conversion Note - Tobias ProviderMD - 07/27/2019 8:04 AM CDT Education-Wound Care Entered On: 07/27/2019 12:47 EDT Performed On: 07/27/2019 8:04 EDT by LORENZO KYLE RN Teaching/Learning Assessment Barriers To Learning : Cognitive deficit Readiness to Learn : Cooperative Highest Level of Education : High school Baseline Knowledge of Topic : Good Readiness to Learn : Explanation Learning Style Preferences Patient : Verbal explanation Learning Style Preferences Family : Verbal explanation LORENZO KYLE RN - 07/27/2019 12:47 EDT Education Topics, Wound Care Wound Education Grid Cleansing Wound : Verbalizes understanding Debridement : Verbalizes understanding Decrease Friction/Shear : Verbalizes understanding Dressing Changes : Verbalizes understanding Diapering : Verbalizes understanding Etiology/Risk Factors : Verbalizes understanding Hygiene : Verbalizes understanding Incontinence Management : Verbalizes understanding Infection Control : Verbalizes understanding Nutritional Support : Verbalizes understanding Pain Management : Verbalizes understanding Plan of Care : Verbalizes understanding Positioning : Verbalizes understanding Postoperative Care : Verbalizes understanding Pressure Relief : Verbalizes understanding Pressure Ulcer Definition : Verbalizes understanding Prevention : Verbalizes understanding Principles of Wound Healing : Verbalizes understanding Product Use : Verbalizes understanding Recognize Signs and Symptoms of Skin Integrity Impairment : Verbalizes understanding Reports Skin Changes to Healthcare Team : Verbalizes understanding Risk Assessment : Verbalizes understanding Skin Assessment : Verbalizes understanding Skin Care : Verbalizes understanding Support Surfaces : Verbalizes understanding Wound Symptoms of Infection : Verbalizes understanding Wound vacuum : Verbalizes understanding Wound Care, Other : Verbalizes understanding LORENZO KYLE RN - 07/27/2019 12:47 EDT documented in this encounter Plan of Treatment Not on file documented as of this encounter Visit Diagnoses Not on filedocumented in this encounter
--- OUTSIDE RECORDS SUMMARY | 2025-02-06 12:34 | XMS_ITS | Encounter Summary ---
Author Organization [employer] ([place], [place], [place], [place]) Address [address] [place] [address] Care Team Providers Care Inventory Specialist Name Role Phone Unavailable Primary Care Provider Unavailabl e Encounter Details Date Type Department Care Team (Late st Contact Info) Description 07/27/2019 Transcribed Document [facility] [place] Family Medicine [address] [place] [address] ProviderTobias MD [address] [place] [address] Social History Tobacco Use Types [...] Note - Tobias Gamino MD - 07/27/2019 9:29 AM CDT Patient: AVI PHILLIPS Age: 69 years Sex: Male : 1950 Associated Diagnoses: None Author: JAZMYN RIVERO MD 1- HALLIE on CKD stage III - Non-oliguric - pre-renal azotemia likely improved with IV hydration. 2- Hyperkalemia - medication and HALLIE 3- Mild metabolic acidosis 4- Anemia 5- CKD stage III - baseline 1.6-1.9 range. 6- Chronic afib 7- Hx of left renal mass 8- Gross hematuria Plan: - Continue with IV hydration - Monitor I/O - Avoid nephrotoxic agents. - Renal diet. - Adjust meds per renal function - Urine lytes and UA - CK total - Recommend urology consult. - No need of [facility]STER Thank you very much for the consult. WIll follow along. [id number] documented in this encounter Plan of Treatment Not on file documented as of this encounter Visit Diagnoses Not on filedocumented in this encounter
[2025-02-06 13:20] VITALS: PULSE 68; PULSE 71
[2025-02-06] MEDS: ALBUTEROL 0.083% 2.5 MG/3 ML NEB IH (13:20)
== END 2025-02-06 23:59 | disposition home or self-care (01) ==
LOC: RT 12:30
PROVIDERS: PCP Internal Medicine Adolescent Medicine; Visit Provider Internal Medicine Pulmonary Disease
DX: J44.9 Chronic obstructive pulmonary disease, unspecified (principal); R94.2 Abnormal results of pulmonary function studies
CPT/HCPCS: 94010; 94618; 94640